=== PATIENT | female | born 1970 | race Caucasian/White ===

== ENCOUNTER 2018-03-22 18:42 | Emergency (ER) | payer MEDICAID, SELFPAY ==
[2018-03-22 18:44] VITALS: BP 125/90; PULSE 115; RESP 16; TEMP 37.1; BMI 28.0
[2018-03-22 18:59] VITALS: PULSE 105; RESP 20; O2SAT 96
--- NOTE | 2018-03-22 18:59 | CT_ITS ---
STUDY: CT BRAIN WITHOUT CONTRAST REASON FOR EXAM: Female, 48 years old. Facial droop and slurred speech, EtOH RADIATION DOSAGE (If Supplied By Facility): CTDIvol = ( 44.99 ) mGy, DLP = ( 782.05 ) mGycm TECHNIQUE: Transaxial CT imaging of the brain was performed without administration of intravenous contrast material. Individualized dose optimization techniques were used for this CT. COMPARISON: Prior study of 03/14/2015 FINDINGS: Normal soft tissue structures. Normal calvarium. Normal size ventricles and extra-axial spaces for the patient's age. Normal white matter tracts of the cerebral hemispheres. Normal basal ganglia and thalami. There is hypodensity of the central brainstem representing a new interval finding. Normal cerebellum. There is no intracranial hemorrhage. There is mucosal thickening of several ethmoid air cells anteriorly. CT/Brain/Head without Contrast IMPRESSION: There is hypodensity of the central brainstem representing a new interval finding from the previous studies. Findings raise the suspicion of infarct of indeterminate age or less likely neoplastic process. MRI is recommended for further evaluation of this finding at this time. There is no intracranial hemorrhage. Mild chronic ethmoid sinusitis. Electronically Signed: Del Cooper MD at 19:57 EDT , Service support ,
--- NOTE | 2018-03-22 18:59 | EKG12_ITS ---
Test Reason : WEAKNESS Blood Pressure : / mmHG Vent. Rate : 109 BPM Atrial Rate : 109 BPM P-R Int : 140 ms QRS Dur : 086 ms QT Int : 356 ms P-R-T Axes : 025 039 042 degrees QTc Int : 479 ms Sinus tachycardia Possible Left atrial enlargement Nonspecific ST abnormality Abnormal ECG Confirmed by ELISA PICKARD, BRAYAN ([id number]), editor city LAURO SWANSON ([id number]) on 03/26/2018 11:11:24 AM Referred By: BYRON Confirmed By:BRAYAN PÉREZ MD
[2018-03-22 19:11] LABS: Absolute Lymphocyte Count 3.38 X10^3/ul (0.83-4.51); Absolute Neutrophil Count 4.3 X10^3/uL (2.0-7.7); Basophil# 0.05 X10^3/uL; Basophil% 0.6 % (0-1); Eosinophil# 0.13 X10^3/uL; Eosinophils% 1.6 % (0-5); Hematocrit 38.1 % (37-47); Hemoglobin 12.7 g/dl (12.0-15.0); Lymphocyte # 3.38 X10^3/ul (4.0); Lymphocyte % 40.5 % (19-41); Mean Corp Hgb Conc 33.3 g/gl (32-36); Mean Corpuscular Volume 107.9 fL (81-99); Mean Platelet Vol. 8.7 fl (6.2-12.0); Monocyte# 0.45 X10^3/uL; Monocyte% 5.4 % (0-10); Neutrophil # 4.32 X10^3/uL (2.7-7.7); Neutrophil % 51.7 % (47-70); Platelet Count 218 K/mm3 (150-450); RBC Distribution Width CV 13.3 % (11.6-14.6); Red Blood Count 3.53 M/mm3 (4.2-5.4); White Blood Count 8.4 K/mm3 (4.4-11.0)
[2018-03-22 19:12] LABS: POSITIVE COUNT NO; POSITIVE DIFFERENTIAL NO; POSITIVE MORPHOLOGY NO
[2018-03-22 19:14] LABS: Partial Thromboplast Time 27.3 Seconds (24.1-36.2)
--- NOTE | 2018-03-22 19:20 | RAD_ITS ---
STUDY: X-RAY CHEST REASON FOR EXAM: Female, 48 years old. Facial droop, slurred speech. TECHNIQUE: AP chest. COMPARISON: None. FINDINGS: The lungs are clear and expanded. There is no demonstrated pleural abnormality. Normal size heart. Normal mediastinum and osmani. Normal visualized pulmonary arteries. Normal visualized aortic arch and descending thoracic aorta. Normal visualized thoracic spine. Normal visualized ribs, clavicles, and shoulders. There is no demonstrated abnormality of the visualized soft tissue structures of the upper abdomen. RAD/Chest 1 View IMPRESSION: Normal x-ray examination of the chest. Electronically Signed: Keyla Ferraro MD at 19:35 EDT Tel , Service support ,
[2018-03-22 19:23] LABS: Anion Gap 9 (5-15); BUN 9 mg/dL (7-18); BUN/Creat Ratio 12.2 RATIO (10-20); Calcium,Total 8.7 mg/dL (8.5-10.1); Chloride 102 mmol/L (98-107); Creatinine, Serum 0.74 mg/dL (0.55-1.02); EST Glomerular Filtration Rate 90 mL/min (>60); Est Glom Filt Rate - Afr Amer 108 mL/min (>60); Estimated Creatinine Clearance 81.16 ml/min; Glucose 149 mg/dL (74-106); Potassium 2.9 mmol/L (3.5-5.1); Sodium Level 138 mmol/L (136-145)
--- NOTE | 2018-03-22 19:23 | ED.RN ---
patient needed to go to CT scan. Patient stated I have to pee now it can wait. Patient refuses to hold bladder at this time. Patient assisted to the bathroom x2 assist.
[2018-03-22 20:32] VITALS: PULSE 101; PULSE 103; RESP 20
[2018-03-22 20:36] LABS: Bedside Glucose 155 mg/dL (70-110)
--- NOTE | 2018-03-22 20:45 | ED.RN ---
PT IS INTOXICATED, REPORTS DRINKING MULTIPLE DRINKS THIS EVENING. PT NOT COMPLIANT WITH ALLOWING MEDICAL EQUIP TO STAY ON AND MONITOR HER VITAL SIGNS.
[2018-03-22 22:06] VITALS: BP 119/82; PULSE 101; PULSE 97; RESP 18; RESP 20
--- NOTE | 2018-03-22 22:11 | ED.RN ---
PT HAS REMOVED BOTH OF HER IV'S AND REPORTS THAT SHE NO LONGER WANTS TO BE ADMITTED TO THE HOSPITAL. PT BREATH IS HEAVY WITH THE SCENT OF ALCOHOL. PT INFORMED THAT SHE IS NOT ABLE TO LEAVE AT THIS TIME BECAUSE SHE IS NOT SOBER. PT STATES I WANT TO TALK TO MY BOYFRIEND. DR CALZADA AWARE THAT PT NO LONGER WANTS TO STAY. PT IS UNSTEADY ON HER FEET AND WAS INSTRUCTED TO STAY IN BED FOR HER SAFETY AND TO CALL FOR HELP IF SHE NEEDS TO USE THE RESTROOM.
--- NOTE | 2018-03-22 23:32 | ED.RN ---
lab called with critical lab results wtoh level 355. Dr. Moore made aware. no new orders at this time
--- NOTE | 2018-03-22 23:53 | ED.VISSUMM ---
- ER Visit Summary Date of Service: 03/22/18 Chief Complaint: Possible stroke History of Present Illness: The patient is a 48 F who presents with a possible stroke that occurred today. Patient was at the [facility] and was drinking alcohol today. Friend states that the patient slumped over in her chair. Patient was having a hard time standing. EMS was called. Patient was slurring her speech on EMS arrival. Patient was having difficulty with speaking and with ambulation at that time. Upon arrival here, patient's speech was improving. Patient denies any headaches. Patient denies any nausea or vomiting. Patient denies any chest pain or shortness of breath. Physical Examination: Vital signs are stable except for mild tachycardia of 115. Patient is afebrile. Patient is in no acute distress. Cranial nerves II through XII are intact. Strength is 5/5 bilateral in the upper and lower extremities. There are no sensory deficits noted. Pupils are equal, round, and reactive to light bilaterally. Extraocular muscles are intact. There are no visual field deficits noted. Heart was regular and tachycardic. Lungs were clear and equal bilaterally. There is good respiratory effort noted. Abdomen was soft and nontender. The remaining physical exam is within normal limits. Test Results: EKG showed sinus tachycardia with a rate of 109. There are no acute ST or T wave changes. This was unchanged compared to previous EKG dated 03/14/2015. CBC was normal. Basic metabolic profile showed a mild hypokalemia of 2.9. Troponin was normal. CT scan of the brain was obtained. There is a hypodensity in the brainstem which is new compared to previous CT. Portable chest x-ray does not show any acute cardiopulmonary process. Emergency Department Course and Treatment: Patient was given aspirin here. Patient was given potassium for her hypokalemia. Patient was advised of her CT findings and admission to the hospital was recommended. Patient refused to stay here in the emergency department and wants to go home. Patient wants to follow-up with her primary care physician tomorrow. Since the patient was drinking alcohol earlier today, serum alcohol level was obtained. This was 355. This was drawn at 2230. Patient was advised that she will not be able to sign out AGAINST MEDICAL ADVICE until she is legally sober. She will have to stay here until 08 30 tomorrow morning when she will be legally sober and can sign out AGAINST MEDICAL ADVICE. Patient and friends understood and were agreeable with the plan. All questions were answered. Disposition: Discharged AGAINST MEDICAL ADVICE Impression: Brainstem stroke This note was generated with [employer] software. It may contain incorrect words, spelling, and punctuation that were not noted in review of the chart prior to signing <Patrick Moore - Last Filed: 03/22/18 23:53> - ER Visit Summary Date of Service: 03/23/18 Chief Complaint: [] History of Present Illness: The patient is a 48 F [] Physical Examination: [] Test Results: [] Emergency Department Course and Treatment: [] Treatment Plan: Patient was reevaluated by myself at 0835. At this point she is clinically sober. She is alert and oriented x3. She appears to have the capacity to make decisions for herself. I summarized her clinical course. I informed her that there was evidence of a possible brainstem infarct on her CAT scan. She understands that by leaving AGAINST MEDICAL ADVICE she possibly could have permanent disability or . She was also informed of other adverse outcomes. She understands that all of these are possible. She still wants to leave AGAINST MEDICAL ADVICE. She sees Adolfo Clancy as her primary care provider. She will call her primary care provider day for follow-up appointment. Disposition: [] Impression: [] This note was generated with [employer] software. It may contain incorrect words, spelling, and punctuation that were not noted in review of the chart prior to signing <Cedric Renee - Last Filed: 03/23/18 08:38> ED Disposition <Patrick Moore - Last Filed: 03/22/18 23:53> <Cedric Renee - Last Filed: 03/23/18 08:38> - Plan for ED Patient: Disposition: Against Medical Advice Chief Complaint: Neuro S/Sx Diagnosis: Brainstem stroke Referrals: Raad Clancy NP-C [Primary Care Provider] -
[2018-03-23 01:54] VITALS: RESP 16
[2018-03-23 03:43] VITALS: RESP 14
[2018-03-23 05:00] VITALS: RESP 16
[2018-03-23 06:33] VITALS: BP 115/71; PULSE 86; RESP 16; O2SAT 98
[2018-03-23] MEDS: Aspirin 325 MG Tablet PO (06:35)
--- NOTE | 2018-03-23 08:38 | ED.DEP ---
ED Disposition - Plan for ED Patient: Disposition: Against Medical Advice Chief Complaint: Neuro S/Sx Diagnosis: Brainstem stroke Instructions: ED Stroke Completed Referrals: Raad Clancy, ACCOUNT CLASSIFICATION CLERK-C [Primary Care Provider] -
== END 2018-03-23 08:56 | disposition left against medical advice (07) ==
PROVIDERS: Emergency Provider Emergency Medicine; Family Provider Nurse Practitioner Family; PCP Nurse Practitioner Family
DX: G46.3 Brain stem stroke syndrome (principal); R47.81 Slurred speech; E87.6 Hypokalemia
CPT/HCPCS: 70450; 71045; 80048; 80320; 82962; 84484; 85025; 85610; 85730; 93005; 99285; A4216; G0480

== ENCOUNTER 2019-02-10 14:34 | Emergency (ER) | payer MEDICAID, SELFPAY ==
[2019-02-10 14:35] VITALS: BP 102/76; PULSE 141; RESP 18; TEMP 37.1; O2SAT 98; BMI 26.0
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
[2019-02-10 15:16] LABS: Absolute Neutrophil Count 4.5 X10^3/uL (2.0-7.7); Basophil# 0.03 X10^3/uL; Basophil% 0.5 % (0-1); Eosinophil# 0.03 X10^3/uL; Eosinophils% 0.5 % (0-5); Hematocrit 33.8 % (37-47); Hemoglobin 11.4 g/dL (12.0-15.0); Lymphocyte % 16.6 % (19-41); Mean Corp Hgb Conc 33.7 g/dL (32-36); Mean Corpuscular Hgb 36.3 pg (27.0-32.0); Mean Corpuscular Volume 107.6 fL (81-99); Mean Platelet Vol. 10.6 fl (6.2-12.0); Monocyte# 0.38 X10^3/uL; Monocyte% 6.3 % (0-10); NRBC Flagged by Analyzer 0 % (0-5); Neutrophil # 4.53 X10^3/uL (2.7-7.7); Neutrophil % 75.4 % (47-70); Platelet Count 102 K/mm3 (150-450); RBC Distribution Width CV 14.6 % (11.6-14.6); RBC Distribution Width SD 56.3 fl (35.1-43.9); Red Blood Count 3.14 M/mm3 (4.2-5.4)
--- NOTE | 2019-02-10 15:25 | RAD_ITS ---
STUDY: X-RAY - RIGHT ANKLE REASON FOR EXAM: Female, 48 years old. Posttraumatic pain TECHNIQUE: 3 view(s) of the ankle. COMPARISON: None. FINDINGS: Normal visualized distal tibia and fibula. Normal medial and lateral malleoli. Normal tibiotalar articulation and ankle mortise. Normal visualized talus and calcaneus. The visualized subtalar, talonavicular, calcaneocuboid and tarsal articulations are normal. Soft tissue swelling overlying the lateral malleolus RAD/Ankle min 3 Views IMPRESSION: Lateral malleolus sprain. No evidence for acute fracture Electronically Signed: Sylvester Cho MD at 16:16 EDT , Service support ,
[2019-02-10] MEDS: 0.9% Normal Saline 1,000 ML 1000 ML IV (15:30)
[2019-02-10] MEDS: Diphth,Pertuss(Acell),Tet Vac 0.5 ML Vial IM (15:31)
[2019-02-10 15:34] VITALS: BP 112/77; PULSE 118; RESP 18; O2SAT 96
[2019-02-10 15:42] LABS: Anion Gap 16 (5-15); BUN 6 mg/dL (7-18); BUN/Creat Ratio 5.3 RATIO (10-20); Calcium,Total 7.7 mg/dL (8.5-10.1); Chloride 95 mmol/L (98-107); Creatinine, Serum 1.14 mg/dL (0.55-1.02); EST Glomerular Filtration Rate 54 mL/min (>60); Est Glom Filt Rate - Afr Amer 65 mL/min (>60); Estimated Creatinine Clearance 52.68 ml/min; Glucose 150 mg/dL (74-106); Potassium 2.6 mmol/L (3.5-5.1); Sodium Level 134 mmol/L (136-145)
--- NOTE | 2019-02-10 15:42 | ED.RN ---
PT K IS 2.6
[2019-02-10 16:16] VITALS: BP 126/93; PULSE 97; RESP 16; O2SAT 100
[2019-02-10] MEDS: Acetaminophen 500 MG Tablet 1000 MG PO (16:18)
[2019-02-10] MEDS: Potassium Chloride 10mEq/100mL 10 MEQ/100 ML IV.SOLN. 100 MEQ IV BOLUS (17:34)
[2019-02-10 17:48] VITALS: BP 122/82; PULSE 100; RESP 18; O2SAT 100
[2019-02-10 18:00] VITALS: BP 116/82; PULSE 105; RESP 20; O2SAT 100
[2019-02-10] MEDS: BACITRACIN 15 GM Tube 1 APPLIC TOPICAL (18:04)
[2019-02-10 18:34] VITALS: BP 120/77; PULSE 102; RESP 18; O2SAT 100
== END 2019-02-10 18:50 | disposition home or self-care (01) ==
PROVIDERS: Emergency Provider Emergency Medicine; Family Provider Nurse Practitioner Family; PCP Nurse Practitioner Family
DX: R56.9 Unspecified convulsions (principal); S93.401A Sprain of unspecified ligament of right ankle, initial encounter; I25.10 Atherosclerotic heart disease of native coronary artery without angina pectoris; Z72.0 Tobacco use; Z79.899 Other long term (current) drug therapy; V49.9XXA Car occupant (driver) (passenger) injured in unspecified traffic accident, initial encounter; Y93.I9 Activity, other involving external motion; Y92.410 Unspecified street and highway as the place of occurrence of the external cause; Y99.8 Other external cause status
CPT/HCPCS: 70450; 73610; 80048; 85025; 90715; 93005; 96360; 96361; 99285; J7030; A4216

== ENCOUNTER 2019-02-22 02:32 | Emergency (ER) | payer MEDICAID, SELFPAY ==
[2019-02-22 02:34] VITALS: BP 93/74; PULSE 122; RESP 18; TEMP 36.4; O2SAT 94; BMI 25.5
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
[2019-02-22] MEDS: Morphine 4 MG/ML Syringe IM (02:59)
[2019-02-22 03:47] VITALS: RESP 16
== END 2019-02-22 03:48 | disposition home or self-care (01) ==
PROVIDERS: Emergency Provider Emergency Medicine; Family Provider Nurse Practitioner Family; PCP Nurse Practitioner Family
DX: S93.601D Unspecified sprain of right foot, subsequent encounter (principal); V89.2XXD Person injured in unspecified motor-vehicle accident, traffic, subsequent encounter; F17.200 Nicotine dependence, unspecified, uncomplicated
CPT/HCPCS: 73630; 96372; 99282

== ENCOUNTER 2020-01-03 13:53 | Emergency (ER) | payer MEDICAID, SELFPAY ==
[2020-01-01 10:06] VITALS: BMI 25.5
[2020-01-03 14:00] VITALS: BP 104/62; PULSE 118; RESP 17; TEMP 37.1; O2SAT 98; BMI 24.4
[2020-01-03 14:11] VITALS: BP 104/62; PULSE 121; RESP 18; O2SAT 98
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
[2020-01-03] MEDS: 0.9% Normal Saline 1,000 ML 999 ML IV (14:49)
[2020-01-03] MEDS: Metoclopramide 10 MG/2 ML Vial IV (14:50)
[2020-01-03] MEDS: DiphenhydrAMINE 50 MG/ML Syringe 25 MG IV (14:52)
[2020-01-03 15:19] VITALS: BP 128/83; RESP 18; O2SAT 99
[2020-01-03 16:37] VITALS: BP 122/79; PULSE 106; RESP 18; O2SAT 99
== END 2020-01-03 17:06 | disposition home or self-care (01) ==
LOC: ED 15:50
PROVIDERS: Emergency Provider Student in an Organized Health Care Education/Training Program
DX: G40.909 Epilepsy, unspecified, not intractable, without status epilepticus (principal); S01.512A Laceration without foreign body of oral cavity, initial encounter; F17.200 Nicotine dependence, unspecified, uncomplicated; X58.XXXA Exposure to other specified factors, initial encounter; Y93.01 Activity, walking, marching and hiking; Y92.480 Sidewalk as the place of occurrence of the external cause; Y99.8 Other external cause status
CPT/HCPCS: 70450; 96361; 96374; 96375; 99285

== ENCOUNTER → 2020-02-15 | Outpatient (CLI) | payer MEDICAID, SELFPAY ==
[2020-02-15 09:41] VITALS: BMI 24.4
[2020-02-15 12:25] LABS: Absolute Lymphocyte Count 1.24 X10^3/uL (0.83-4.51); Absolute Neutrophil Count 2.6 X10^3/uL (2.0-7.7); Basophil# 0.03 X10^3/uL; Basophil% 0.7 % (0-1); Eosinophil# 0.08 X10^3/uL; Eosinophils% 1.9 % (0-5); Hematocrit 33.1 % (37-47); Hemoglobin 10.8 g/dL (12.0-15.0); Lymphocyte # 1.24 X10^3/ul (4.0); Lymphocyte % 29.2 % (19-41); Mean Corp Hgb Conc 32.6 g/dL (32-36); Mean Corpuscular Hgb 35.6 pg (27.0-32.0); Mean Corpuscular Volume 109.2 fL (81-99); Mean Platelet Vol. 10.1 fl (6.2-12.0); Monocyte# 0.32 X10^3/uL; Monocyte% 7.5 % (0-10); NRBC Flagged by Analyzer 0 % (0-5); Neutrophil # 2.56 X10^3/uL (2.7-7.7); Neutrophil % 60.5 % (47-70); Platelet Count 117 K/mm3 (150-450); RBC Distribution Width CV 14.3 % (11.6-14.6); RBC Distribution Width SD 57.8 fl (35.1-43.9); Red Blood Count 3.03 M/mm3 (4.2-5.4); White Blood Count 4.2 K/mm3 (4.4-11.0)
[2020-02-15 12:41] LABS: ALB/GLOB Ratio 0.7 RATIO (0.9-2.4); AST(SGOT) 46 U/L (15-37); Alanine Aminotransfer ALT/SGPT 27 U/L (13-56); Albumin, Serum 2.9 g/dL (3.2-5.0); Alkaline Phosphatase 116 U/L (45-117); Anion Gap 5 (5-15); BUN 7 mg/dL (7-18); BUN/Creat Ratio 9.2 RATIO (10-20); Calcium,Total 8.4 mg/dL (8.5-10.1); Chloride 104 mmol/L (98-107); Cholesterol 247 mg/dL (200); Creatinine, Serum 0.76 mg/dL (0.55-1.02); EST Glomerular Filtration Rate 86 mL/min (>60); Est Glom Filt Rate - Afr Amer 104 mL/min (>60); Globulin 4.3 g/dL (2.2-4.2); Glucose 181 mg/dL (74-106); High Density Lipoprotein 52 mg/dL; Potassium 3.5 mmol/L (3.5-5.1); Protein, Total 7.2 g/dL (6.4-8.2); Sodium Level 137 mmol/L (136-145); Triglycerides 99 mg/dL; Very Low Density Lipoprotein 20 mg/dL (5-40)
[2020-02-15 17:57] LABS: Xtra Tube EP Lab EXTRA TUBE
[2020-02-16 09:42] LABS: Vitamin B12 894 pg/mL (211-911)
[2020-02-16 09:53] LABS: GGTP 41 U/L (5-55)
[2020-02-16 10:19] LABS: Hemoglobin A1c 4.5 % (3.8-5.6)
== END | disposition home or self-care (01) ==
LOC: BIMLAB 09:57
PROVIDERS: PCP Internal Medicine; Referring Provider Internal Medicine; Visit Provider Internal Medicine
DX: I10 Essential (primary) hypertension (principal); R73.9 Hyperglycemia, unspecified; D53.9 Nutritional anemia, unspecified; K70.9 Alcoholic liver disease, unspecified
CPT/HCPCS: 36415; 80053; 80061; 82607; 82746; 82977; 83036; 85025

== ENCOUNTER → 2020-03-03 | Outpatient (CLI) | payer MEDICAID, SELFPAY ==
[2020-02-15 09:41] VITALS: BMI 24.4
--- NOTE | 2020-03-03 11:40 | BI_ITS ---
MAMMOGRAPHY - BILATERAL SCREENING REASON FOR EXAM: Female, 49 years old. Routine annual screening examination. PERTINENT HISTORY: Aunt with breast cancer. TECHNIQUE: Digital bilateral breast reggie (3D mammographic acquisition) in the CC and MLO projections. 2-D mediolateral oblique (MLO) and craniocaudad (CC) views of both breasts were obtained. CAD: Full Field Digital Mammography with Computer Added Detection was performed. COMPARISON: Comparison is made with prior outside examination dated 05/07/2016. FINDINGS: Breast Composition: There are scattered areas of fibroglandular density. There are no dominant masses or suspicious calcifications. Stable small benign appearing bilateral axillary lymph nodes. No other significant abnormalities are identified. There has been no significant change since the prior study. BI/SCREEN MAMM (CAD) W/REGGIE BILAT IMPRESSION: Stable bilateral screening mammogram. Yearly follow-up mammogram recommended. (A) ASSESSMENT CATEGORY: BIRADS Category 2: Benign. A letter regarding these results will be sent to the patient by the facility within 30 days. Approximately 10% of breast cancers are not detected by mammography. A normal mammogram should not delay biopsy of a clinically suspicious abnormality. [id number] Electronically Signed: José Monreal, at 13:58 EDT , Service support ,
== END | disposition home or self-care (01) ==
LOC: OPBI 11:40
PROVIDERS: PCP Internal Medicine; Referring Provider Internal Medicine; Visit Provider Internal Medicine
DX: Z12.31 Encounter for screening mammogram for malignant neoplasm of breast (principal)
CPT/HCPCS: 77063; 77067

== ENCOUNTER → 2020-04-07 11:19 | Outpatient (CLI) | payer MEDICAID, SELFPAY ==
[2020-02-15 09:41] VITALS: BMI 24.4
[2020-04-07 14:04] LABS: BUN 6 mg/dL (7-18); Creatinine, Serum 0.59 mg/dL (0.55-1.02); EST Glomerular Filtration Rate 114 mL/min (>60); Est Glom Filt Rate - Afr Amer 138 mL/min (>60)
[2020-04-10 17:42] LABS: Trileptal-Oxcarbazepine 12 ug/mL (10-35)
== END ==
PROVIDERS: PCP Internal Medicine; Referring Provider Psychiatry & Neurology Neurology; Visit Provider Psychiatry & Neurology Neurology
DX: G40.909 Epilepsy, unspecified, not intractable, without status epilepticus (principal)
CPT/HCPCS: 36415; 82542; 82565; 84520

== ENCOUNTER → 2020-04-24 07:02 | Outpatient (CLI) | payer MEDICAID, SELFPAY ==
[2020-02-15 09:41] VITALS: BMI 24.4
--- NOTE | 2020-04-24 08:19 | TELEMED_ITS ---
[facility] has confirmed receipt of a request for visit. This document confirms receipt of the order initiating the consult. To find the results of the consultation, please view the patient's reports for the scanned Telemed Consult.
== END ==
PROVIDERS: PCP Internal Medicine; Referring Provider Psychiatry & Neurology Neurology; Visit Provider Psychiatry & Neurology Neurology
DX: G40.909 Epilepsy, unspecified, not intractable, without status epilepticus (principal)
CPT/HCPCS: 95819

== ENCOUNTER → 2020-05-15 11:15 | Outpatient (CLI) | payer MEDICAID, SELFPAY ==
[2020-05-15 10:53] VITALS: BMI 28.8
[2020-05-15 12:54] LABS: Anion Gap 7 (5-15); BUN 8 mg/dL (7-18); BUN/Creat Ratio 11.9 RATIO (10-20); Calcium,Total 8.8 mg/dL (8.5-10.1); Chloride 106 mmol/L (98-107); Creatinine, Serum 0.67 mg/dL (0.55-1.02); EST Glomerular Filtration Rate 99 mL/min (>60); Est Glom Filt Rate - Afr Amer 120 mL/min (>60); Glucose 103 mg/dL (74-106); Potassium 3.9 mmol/L (3.5-5.1); Sodium Level 138 mmol/L (136-145)
== END ==
PROVIDERS: PCP Internal Medicine; Visit Provider Internal Medicine
DX: I10 Essential (primary) hypertension (principal)
CPT/HCPCS: 36415; 80048

== ENCOUNTER → 2020-06-20 07:19 | Outpatient (CLI) | payer MEDICAID, SELFPAY ==
[2020-02-15 09:41] VITALS: BMI 24.4
[2020-05-15 10:53] VITALS: BMI 28.8
--- NOTE | 2020-06-20 07:28 | MRI_ITS ---
STUDY: MRI BRAIN WITH AND WITHOUT CONTRAST REASON FOR EXAM: Female, 50 years old. epilepsy TECHNIQUE: Standardized multiplanar fat and water weighted pulse sequences were obtained. IV Dotarem 14ml was administered for the contrast portion of the examination. COMPARISON: 10/17/2014 FINDINGS: Normal size of the ventricles and extra-axial spaces for the patient''s age. Normal white matter tracts of the supratentorial brain. There is no evidence for recent intracranial ischemia or other cause of cytotoxic edema on diffusion weighted imaging (DWI). Normal T2* images of the brain without demonstrated susceptibility artifact. There is no demonstrated hemosiderin stain. Thin section coronal images through the temporal lobes demonstrate no evidence of hippocampal atrophy or hyperintensity to suggest mesial temporal sclerosis. Normal bilateral basal ganglia. Normal thalami. There is no extra-axial fluid accumulation. Normal flow voids within the major intracranial circulation suggesting patency by spin echo criteria. Normal venous enhancement. There is no enhancing intra-axial or extra-axial abnormality. Normal sella turcica, pituitary gland, infundibular stalk, optic chiasm and hypothalamus. Normal tectal plate and pineal gland. Normal midbrain, danni and medulla. Normal cerebellum. Normal basal cisterns. Normal bilateral temporal bones. Normal bilateral internal auditory canals. No demonstrated orbital abnormality, within the constraints of a routine brain study. Normal visualized paranasal sinuses. Normal calvarium and skull base. Normal visualized soft tissue structures. Normal visualized upper cervical spine. MRI/Brain W/WO Contrast IMPRESSION: Normal unenhanced and enhanced MRI of the brain. Electronically Signed: Raad Webb MD at 10:05 EST Tel , Service support ,
[2020-06-20 07:36] LABS: Hematocrit 38.1 % (37-47); Hemoglobin 12.7 g/dL (12.0-15.0); Mean Corp Hgb Conc 33.3 g/dL (32-36); Mean Corpuscular Hgb 33.6 pg (27.0-32.0); Mean Corpuscular Volume 100.8 fL (81-99); Mean Platelet Vol. 9.5 fl (6.2-12.0); Platelet Count 144 K/mm3 (150-450); RBC Distribution Width CV 14.2 % (11.6-14.6); RBC Distribution Width SD 53.3 fl (35.1-43.9); Red Blood Count 3.78 M/mm3 (4.2-5.4); White Blood Count 6.3 K/mm3 (4.4-11.0)
[2020-06-20 07:48] LABS: AST(SGOT) 31 U/L (15-37); Alanine Aminotransfer ALT/SGPT 27 U/L (13-56); Albumin, Serum 3.5 g/dL (3.2-5.0); Alkaline Phosphatase 130 U/L (45-117); BUN 7 mg/dL (7-18); Bilirubin, Direct 0.41 mg/dL (0.00-0.30); Creatinine, Serum 0.71 mg/dL (0.55-1.02); EST Glomerular Filtration Rate 93 mL/min (>60); Est Glom Filt Rate - Afr Amer 112 mL/min (>60); Ferritin 20 ng/mL (8-252); Globulin 4.5 g/dL (2.2-4.2); Iron 86 ug/dL (50-170)
== END ==
PROVIDERS: PCP Internal Medicine; Referring Provider Psychiatry & Neurology Neurology; Visit Provider Psychiatry & Neurology Neurology
DX: G40.909 Epilepsy, unspecified, not intractable, without status epilepticus (principal); Z86.2 Personal history of diseases of the blood and blood-forming organs and certain disorders involving the immune mechanism
CPT/HCPCS: 36415; 70553; 80076; 82565; 82728; 83540; 84520; 85027; A9575

== ENCOUNTER → 2020-07-21 | Outpatient (CLI) | payer MEDICAID, SELFPAY ==
--- NOTE | 2020-07-20 | LES_PTH ---
PATIENT: FELTON ARMENTA LOC: [facility] U#:[id number] AGE/SX: 50/F ROOM: RE07/21/[address]: Dr. Rosendo Vernon MD : 1970 BED: DIS: 07/21/2020 SPEC #: [id number] RECD: 07/21/20 11:44 STATUS: TONEY RELeah #: [id number] EDIE: 07/20/20 00:[address]: Rosendo Vernon DEPT: SURGICAL PATHOLOGY RECD BY: Adal Ruelas ENTERED: 07/21/20 11:45 SP TYPE: Lesion OTHR DR: Dr. Edis Nichols MD Tissues: Skin of eyelid, NOS Procedures: Surgery Specimen Level IV HEADER OPERATION: Excisional biopsy right lower eyelid PRE-OP DIAGNOSIS: Suspicious for basal cell TISSUE SUBMITTED: Right lower eyelid lesion MICROSCOPIC DIAGNOSIS Right lower eyelid lesion, biopsy: Basal cell carcinoma, superficial nodular and focally cystic. See comment. AM:trixie 07/24/2020 COMMENT The lesion appears to have been completely excised from the planes examined. Clinical correlation is suggested. MICROSCOPIC DESCRIPTION Slides are reviewed. GROSS DESCRIPTION Received in fixative is one container labeled with the patient's name and designated right lower lid/cheek area. The specimen consists of a osman-white skin ellipse measuring 0.7 x 0.3 x 0.2 cm. The specimen is inked and submitted entirely in one cassette. It will be sectioned at the time of embedding. / SJ:trixie 07/21/20 TC:0 CPT: 41377
[2020-07-21 10:26] VITALS: BMI 24.4
== END | disposition home or self-care (01) ==
LOC: LABSPEC 10:27
PROVIDERS: PCP Internal Medicine; Referring Provider Ophthalmology; Visit Provider Ophthalmology
DX: C44.1122 Basal cell carcinoma of skin of right lower eyelid, including canthus (principal)
CPT/HCPCS: 88305

== ENCOUNTER → 2020-08-15 11:36 | Outpatient (CLI) | payer MEDICAID, SELFPAY ==
[2020-08-15 10:45] VITALS: BMI 31.0
[2020-08-15 15:49] LABS: Erythrocyte Sedimentation Rate 7 mm/hr (0-30)
[2020-08-15 15:54] LABS: Anion Gap 5 (5-15); BUN 9 mg/dL (7-18); BUN/Creat Ratio 12.3 RATIO (10-20); CRP < 2.90 mg/L (0.0-3.0); Calcium,Total 8.7 mg/dL (8.5-10.1); Chloride 104 mmol/L (98-107); Creatinine, Serum 0.73 mg/dL (0.55-1.02); EST Glomerular Filtration Rate 90 mL/min (>60); Est Glom Filt Rate - Afr Amer 109 mL/min (>60); Glucose 99 mg/dL (74-106); Potassium 4.2 mmol/L (3.5-5.1); Rheumatoid Factor < 10.0 IU/mL (<15); Sodium Level 136 mmol/L (136-145)
[2020-08-17 14:44] LABS: ANTINUCLEAR ANTIBODIES DIRECT Negative (Negative)
== END ==
PROVIDERS: PCP Internal Medicine; Referring Provider Nurse Practitioner Family; Visit Provider Nurse Practitioner Family
DX: E87.6 Hypokalemia (principal); M25.50 Pain in unspecified joint; R63.5 Abnormal weight gain
CPT/HCPCS: 36415; 80048; 84439; 84443; 85652; 86038; 86140; 86225; 86235; 86431

== ENCOUNTER → 2020-09-15 14:53 | Outpatient (CLI) | payer MEDICAID, SELFPAY ==
[2020-09-05 15:33] VITALS: BMI 28.8
[2020-09-22 12:27] LABS: Trileptal-Oxcarbazepine 9 ug/mL (10-35)
== END ==
PROVIDERS: PCP Internal Medicine; Referring Provider Nurse Practitioner Family; Visit Provider Nurse Practitioner Family
DX: G40.909 Epilepsy, unspecified, not intractable, without status epilepticus (principal)
CPT/HCPCS: 36415; 82542

== ENCOUNTER → 2021-03-09 15:19 | Outpatient (CLI) | payer MEDICARE, SELFPAY ==
--- NOTE | 2021-03-09 15:20 | BI_ITS ---
MAMMOGRAPHY - BILATERAL SCREENING 3-D TOMOSYNTHESIS REASON FOR EXAM: Female, 50 years old. screening PERTINENT HISTORY: No significant family history. TECHNIQUE: 2-D mammograms and 3-D Tomosynthesis of the breast (s) were performed. CAD was performed. COMPARISON: 03/03/2020 FINDINGS: The breast composition is composed of scattered fibroglandular density. Scattered benign calcifications are seen. No dense spiculated masses or suspicious microcalcifications are identified. No architectural distortion is identified. There is no skin thickening or retraction. There has been no significant change since the prior study. BI/SCRN MAMM (CAD)W/REGGIE BILAT IMPRESSION: No mammographic signs of malignancy. Routine yearly mammograms recommended. ASSESSMENT CATEGORY: BIRADS Category 1: Negative. A letter regarding these results will be sent to the patient by the facility within 30 days. FOLLOW UP RECOMMENDATION: Yearly follow up mammogram recommended. (A) Approximately 10% of breast cancers are not detected by mammography. A normal mammogram should not delay biopsy of a clinically suspicious abnormality. Electronically Signed: Raad Webb MD at 10:51 EDT Tel , Service support ,
== END ==
PROVIDERS: PCP Internal Medicine; Referring Provider Nurse Practitioner Family; Visit Provider Nurse Practitioner Family
DX: Z12.31 Encounter for screening mammogram for malignant neoplasm of breast (principal)
CPT/HCPCS: 77063; 77067

== ENCOUNTER → 2021-03-13 11:47 | Outpatient (CLI) | payer MEDICARE, SELFPAY | PROVIDERS: PCP Internal Medicine; Referring Provider Psychiatry & Neurology Neurology; Visit Provider Psychiatry & Neurology Neurology | DX: G40.909 Epilepsy, unspecified, not intractable, without status epilepticus (principal) | CPT/HCPCS: 36415; 82140 ==

== ENCOUNTER → 2021-03-23 09:06 | Outpatient (CLI) | payer MEDICARE, MEDICAID, SELFPAY | PROVIDERS: PCP Internal Medicine; Referring Provider Internal Medicine; Visit Provider Surgery | DX: U07.1 COVID-19 (principal) | CPT/HCPCS: 87426; 87635; C9803; U0005; U0003 ==

== ENCOUNTER → 2021-11-08 | Outpatient (CLI) | payer MEDICARE, SELFPAY ==
[2021-11-08 15:51] LABS: Absolute Lymphocyte Count 1.57 X10^3/uL (0.83-4.51); Absolute Neutrophil Count 4.9 X10^3/uL (2.0-7.7); Basophil# 0.03 X10^3/uL; Basophil% 0.4 % (0-1); Eosinophil# 0.08 X10^3/uL; Eosinophils% 1.1 % (0-5); Hematocrit 42.8 % (37-47); Hemoglobin 14.1 g/dL (12.0-15.0); Lymphocyte # 1.57 X10^3/ul (0.83-4.51); Lymphocyte % 21.7 % (19-41); Mean Corp Hgb Conc 32.9 g/dL (32-36); Mean Corpuscular Hgb 36.6 pg (27.0-32.0); Mean Corpuscular Volume 111.2 fL (81-99); Mean Platelet Vol. 10.3 fl (6.2-12.0); Monocyte# 0.61 X10^3/uL; Monocyte% 8.4 % (0-10); NRBC Flagged by Analyzer 0 % (0-5); Neutrophil # 4.92 X10^3/uL (2.7-7.7); Neutrophil % 68.1 % (47-70); Platelet Count 134 K/mm3 (150-450); RBC Distribution Width CV 13.2 % (11.6-14.6); RBC Distribution Width SD 54.1 fl (35.1-43.9); Red Blood Count 3.85 M/mm3 (4.2-5.4); White Blood Count 7.2 K/mm3 (4.4-11.0)
[2021-11-08 16:17] LABS: ALB/GLOB Ratio 0.9 RATIO (0.9-2.4); AST(SGOT) 35 U/L (15-37); Alanine Aminotransfer ALT/SGPT 35 U/L (13-56); Albumin, Serum 3.9 g/dL (3.2-5.0); Alkaline Phosphatase 101 U/L (45-117); Anion Gap 7 (5-15); BUN 13 mg/dL (7-18); BUN/Creat Ratio 15.9 RATIO (10-20); Calcium,Total 9.1 mg/dL (8.5-10.1); Chloride 104 mmol/L (98-107); Cholesterol 179 mg/dL (200); Creatinine, Serum 0.82 mg/dL (0.55-1.02); EST Glomerular Filtration Rate 78 mL/min (>60); Est Glom Filt Rate - Afr Amer 95 mL/min (>60); Globulin 4.4 g/dL (2.2-4.2); Glucose 95 mg/dL (74-106); High Density Lipoprotein 63 mg/dL; Potassium 3.8 mmol/L (3.5-5.1); Protein, Total 8.3 g/dL (6.4-8.2); Sodium Level 136 mmol/L (136-145); Thyroid Stim Hormone (TSH) 1.32 uIU/mL (0.358-3.74); Triglycerides 59 mg/dL; Very Low Density Lipoprotein 12 mg/dL (5-40)
== END | disposition home or self-care (01) ==
LOC: MTLAB 13:47
PROVIDERS: PCP Internal Medicine; Referring Provider Nurse Practitioner Family; Visit Provider Nurse Practitioner Family
DX: K64.9 Unspecified hemorrhoids (principal); G40.909 Epilepsy, unspecified, not intractable, without status epilepticus; I10 Essential (primary) hypertension; F41.9 Anxiety disorder, unspecified; F32.9 Major depressive disorder, single episode, unspecified
CPT/HCPCS: 36415; 80053; 80061; 84443; 85025

== ENCOUNTER → 2022-03-18 | Outpatient (CLI) | payer MEDICARE, MEDICAID, SELFPAY ==
--- NOTE | 2022-03-18 13:07 | RAD_ITS ---
EXAM: XR RIGHT HIP WITH PELVIS WHEN PERFORMED, 2 OR 3 VIEWS CLINICAL INDICATION: Right Hip Pain TECHNIQUE: Two or three views of the right hip with pelvis when performed. This report was created using [employer] report generation technology. COMPARISON: Pelvic radiograph of 08/09/2013. FINDINGS: BONES/JOINTS: Lower lumbar facet arthritis is present, and has progressed since the prior study. Mild degenerative spurring noted about the L3/4 disc space. No displaced fracture. No destructive or sclerotic lesions. Note that overlapping bowel shadows may however obscure fine detail. Sacroiliac joints are unremarkable. No widening of the pubic symphysis. SOFT TISSUES: No soft tissue swelling or gas. VASCULATURE: Calcified phleboliths are noted within the pelvis. TUBES, LINES AND DEVICES: Fallopian tube occlusive devices remain in place. RAD/HIP, UNI W/ Pelvis 2-3 Views IMPRESSION: Lower lumbar degenerative changes including facet arthritis. No acute findings in the pelvis or right hip. Electronically Signed: Arsalan Downey MD at 7:42 EDT ,
== END | disposition home or self-care (01) ==
PROVIDERS: PCP Internal Medicine; Referring Provider Psychiatry & Neurology Neurology; Visit Provider Psychiatry & Neurology Neurology
DX: M25.551 Pain in right hip (principal); G40.909 Epilepsy, unspecified, not intractable, without status epilepticus
CPT/HCPCS: 36415; 73502; 82140

== ENCOUNTER → 2022-05-16 | Outpatient (CLI) | payer MEDICARE, MEDICAID, SELFPAY | END | disposition home or self-care (01) | PROVIDERS: PCP Internal Medicine; Referring Provider Psychiatry & Neurology Neurology; Visit Provider Psychiatry & Neurology Neurology | DX: G40.909 Epilepsy, unspecified, not intractable, without status epilepticus (principal) | CPT/HCPCS: 36415; 82140 ==

== ENCOUNTER → 2022-10-07 | Outpatient (CLI) | payer MEDICARE, SELFPAY ==
--- NOTE | 2022-10-07 08:23 | BI_ITS ---
MAMMOGRAPHY - BILATERAL SCREENING REASON FOR EXAM: Female, 52 years old. Routine annual screening examination. PERTINENT HISTORY: Aunt with breast cancer. TECHNIQUE: Digital bilateral breast reggie (3D mammographic acquisition) in the CC and MLO projections. 2-D mediolateral oblique (MLO) and craniocaudad (CC) views of both breasts were obtained. CAD: Full Field Digital Mammography with Computer Added Detection was performed. COMPARISON: Comparison is made with prior study March 09, 2021 and March 03, 2020. FINDINGS: Breast Composition: The breasts are almost entirely fatty. There are no dominant masses or suspicious calcifications. Stable small benign-appearing bilateral axillary lymph nodes. No other significant abnormalities are identified. There has been no significant change since the prior study. BI/SCRN MAMM (CAD)W/REGGIE BILAT IMPRESSION: Stable bilateral screening mammogram. Yearly follow-up mammogram recommended. (A) ASSESSMENT CATEGORY: BIRADS Category 2: Benign. A letter regarding these results will be sent to the patient by the facility within 30 days. Approximately 10% of breast cancers are not detected by mammography. A normal mammogram should not delay biopsy of a clinically suspicious abnormality. [id number] Electronically Signed: José Monreal MD at 9:21 EDT ,
== END | disposition home or self-care (01) ==
PROVIDERS: PCP Internal Medicine; Referring Provider Internal Medicine; Visit Provider Internal Medicine
DX: Z12.31 Encounter for screening mammogram for malignant neoplasm of breast (principal)
CPT/HCPCS: 77063; 77067

== ENCOUNTER → 2023-04-09 | Outpatient (CLI) | payer MEDICARE, SELFPAY ==
[2023-04-09 15:26] LABS: Absolute Lymphocyte Count 1.67 X10^3/uL (0.83-4.51); Absolute Neutrophil Count 2.3 X10^3/uL (2.0-7.7); Basophil# 0.03 X10^3/uL; Basophil% 0.7 % (0-1); Eosinophil# 0.06 X10^3/uL; Eosinophils% 1.3 % (0-5); Hematocrit 38.6 % (37-47); Hemoglobin 12.3 g/dL (12.0-15.0); Lymphocyte # 1.67 X10^3/ul (0.83-4.51); Lymphocyte % 37.4 % (19-41); Mean Corp Hgb Conc 31.9 g/dL (32-36); Mean Corpuscular Hgb 35.4 pg (27.0-32.0); Mean Corpuscular Volume 111.2 fL (81-99); Mean Platelet Vol. 9.7 fl (6.2-12.0); Monocyte# 0.42 X10^3/uL; Monocyte% 9.4 % (0-10); NRBC Flagged by Analyzer 0 % (0-5); Neutrophil # 2.28 X10^3/uL (2.7-7.7); Platelet Count 160 K/mm3 (150-450); RBC Distribution Width SD 61.4 fl (35.1-43.9); Red Blood Count 3.47 M/mm3 (4.2-5.4); White Blood Count 4.5 K/mm3 (4.4-11.0)
[2023-04-09 15:53] LABS: ALB/GLOB Ratio 0.9 RATIO (0.9-2.4); AST(SGOT) 56 U/L (15-37); Alanine Aminotransfer ALT/SGPT 35 U/L (13-56); Albumin, Serum 3.5 g/dL (3.2-5.0); Alkaline Phosphatase 97 U/L (45-117); Anion Gap 6 (5-15); BUN 7 mg/dL (7-18); Chloride 107 mmol/L (98-107); Cholesterol 171 mg/dL (200); Creatinine, Serum 0.88 mg/dL (0.55-1.02); EST Glomerular Filtration Rate 72 mL/min (>60); Est Glom Filt Rate - Afr Amer 87 mL/min (>60); Globulin 3.8 g/dL (2.2-4.2); Glucose 101 mg/dL (74-106); High Density Lipoprotein 46 mg/dL; Potassium 3.7 mmol/L (3.5-5.1); Protein, Total 7.3 g/dL (6.4-8.2); Sodium Level 140 mmol/L (136-145); Triglycerides 111 mg/dL; Very Low Density Lipoprotein 22 mg/dL (5-40)
== END | disposition home or self-care (01) ==
LOC: BIMLAB 14:06
PROVIDERS: PCP Internal Medicine; Visit Provider Internal Medicine
DX: I10 Essential (primary) hypertension (principal); K76.0 Fatty (change of) liver, not elsewhere classified
CPT/HCPCS: 36415; 80053; 80061; 85025

== ENCOUNTER → 2024-03-03 | Outpatient (CLI) | payer MEDICARE, SELFPAY | END | disposition home or self-care (01) | PROVIDERS: PCP Internal Medicine; Referring Provider Psychiatry & Neurology Neurology; Visit Provider Psychiatry & Neurology Neurology | DX: G40.909 Epilepsy, unspecified, not intractable, without status epilepticus (principal) | CPT/HCPCS: 36415; 82140 ==

== ENCOUNTER 2024-03-10 21:25 | Inpatient (IN) | payer MEDICARE, SELFPAY ==
[2024-03-10] VITALS (9 sets, daily range): BP systolic 152–164; BP diastolic 81–90; PULSE 102–140; RESP 19–31; TEMP 36.6; O2SAT 94–98; BMI 27.5
--- OUTSIDE RECORDS SUMMARY | 2024-03-10 22:00 | XMS RPT_ITS | CCD ---
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 ([place]) Comment on above: Performed By: #### SERA CLINTON, ANEU #### [place] [address] #### LIP, CMP, GFR #### [address] [address] Eosinophils/100 WBC (Bld) 0.0 % Normal 0.0-7.0 [facility] ([place]) Comment on above: Performed By: #### C BC, ADIFF, ANEU #### [address] [address] #### LIP, CMP, GFR #### [address] [address] Lymphocytes (Bld) [#/Vol] 0.40 10 3/mcL Low 0.77-3.85 [facility] ([place]) Comment on above: Performed By: #### C BC, ADIFF, ANEU #### [place] [address] #### LIP, CMP, GFR #### [address] [address] Lymphocytes/100 WBC (Bld) 7.5 % Low 10.0-50.0 [facility] ([place]) Comment on above: Performed By: #### C BC, ADIFF, ANEU #### [place] [address] #### LIP, CMP, GFR #### [address] [address] Monocytes/100 WBC (Bld) 4.5 % Normal 1.7-13.0 [facility] ([place]) Comment on above: Performed By: #### C BC, ADIFF, ANEU #### [place] [address] #### LIP, CMP, GFR #### [address] [address] Neutrophils/100 WBC (Bld) 87.0 % High 37.0-80.0 [facility] ([place]) Comment on above: Performed By: #### C BC, ADIFF, ANEU #### [place] [address] #### LIP, CMP, GFR #### [address] [address] .GFRon 08-11-2018 GFR Non- 90 ml/min/1.73sqm Normal [facility] ([place]) Comment on above: Result Comment: GFR Population mean for , Non- Americans Ages 20-29 = 116 mL/min/1.73 sq.m. Ages 30-39 = 107 mL/min/1.73 sq.m. Ages 40-49 = 99 mL/min/1.73 sq.m. Ages 50-59 = 93 mL/min/1.73 sq.m. Ages 60-69 = 85 mL/min/1.73 sq.m. Ages 70+ = 75 mL/min/1.73 sq.m. Chronic Kidney Disease: Less than 60 mL/min/1.73 square meters End Stage Renal Disease: Less than 15 mL/min/1.73 square meters Performed By: #### C BC, ADIFF, ANEU #### [address] [address] #### LIP, CMP, GFR #### [place] [id number] GFR 109 ml/min/1.73sqm Normal [facility] ([place]) Comment on above: Result Comment: GFR Population mean for , Non- Americans Ages 20-29 = 116 mL/min/1.73 sq.m. Ages 30-39 = 107 mL/min/1.73 sq.m. Ages 40-49 = 99 mL/min/1.73 sq.m. Ages 50-59 = 93 mL/min/1.73 sq.m. Ages 60-69 = 85 mL/min/1.73 sq.m. Ages 70+ = 75 mL/min/1.73 sq.m. Chronic Kidney Disease: Less than 60 mL/min/1.73 square meters End Stage Renal Disease: Less than 15 mL/min/1.73 square meters Performed By: #### C BC, ADIFF, ANEU #### [address] [address] #### LIP, CMP, GFR #### [address] [address] .NEUABSon 08-11-2018 Neutrophils (Bld) [#/Vol] 4.20 10 3/mcL Normal 2.85-6.16 [facility] ([place]) Comment on above: Performed By: #### C SERA DAVIS, ANEU #### [place] [address] #### LIP, CMP, GFR #### [place] [address] .Urinalysis Microscopic (AO) on 08-11-2018 RBC (U) [#/Vol] None Seen Normal None Seen [facility] ([place] Comment on above: Performed By: #### U A, UAMICAO #### [place] [address] UA Bacteria 4+ /hpf [facility] ([place] Comment on above: Performed By: #### U A, UAMICAO #### [place] [address] UA Squam Epithelial 5-10 None Seen [facility] ([place]) Comment on above: Performed By: #### U A, UAMICAO #### [place] [address] UA WBC 0-5 None Seen [facility] ([place] Comment on above: Performed By: #### U A, UAMICAO #### [place] [address] CBCon 08-11-2018 Erythrocyte distribution width (RBC) [Ratio] 15.4 % High 11.5-14.5 [facility] ([place]) Comment on above: Performed By: #### C SERA DAVIS, ANEU #### [place] [address] #### LIP, CMP, GFR #### [place] [address] Hematocrit (Bld) [Volume fraction] 39.9 % Normal 37.0-47.0 [facility] ([place] Comment on above: Performed By: #### C SERA DAVIS ANEU #### [place] [address] #### LIP, CMP, GFR #### [address] [address] Hemoglobin (Bld) [Mass/Vol] 13.7 G/dL Normal 12.0-16.0 [facility] ([place] Comment on above: Performed By: #### C BC, ADIFF, ANEU #### [place] [address] #### LIP, CMP, GFR #### [place] [address] MCH (RBC) [Entitic mass] 37.5 pg High 27.0-31.2 [facility] ([place]) Comment on above: Performed By: #### C SUSAN, ADIFF, ANEU #### [place] [address] #### LIP, CMP, GFR #### [place] [address] MCHC (RBC) [Mass/Vol] 34.3 G/dL Normal 33.0-37.0 [facility] ([place]) Comment on above: Performed By: #### C SUSAN, ADIFF, ANEU #### [place] [address] #### LIP, CMP, GFR #### [place] [address] MCV (RBC) [Entitic vol] 109.5 fL High 80.0-94.0 [facility] ([place] Comment on above: Performed By: #### C BC, ADIFF, ANEU #### [place] [address] #### LIP, CMP, GFR #### [place] [address] Platelet mean volume (Bld) [Entitic vol] 7.2 fL Low 7.4-10.4 [facility] ([place] Comment on above: Performed By: #### C BC, ADIFF, ANEU #### [place] [address] #### LIP, CMP, GFR #### [address] [address] Platelets (Bld) [#/Vol] 105 10 3/mcL Low 130-400 [facility] ([place]) Comment on above: Performed By: #### C BC, ADIFF, ANEU #### [address] [address] #### LIP, CMP, GFR #### [address] [address] RBC (Bld) [#/Vol] 3.65 10 6/mcL Low 4.20-5.40 [facility] ([place]) Comment on above: Performed By: #### C BC, ADIFF, ANEU #### [place] [address] #### LIP, CMP, GFR #### [address] [address] WBC (Bld) [#/Vol] 4.80 10 3/mcL Normal 4.60-10.80 [facility] ([place]) Comment on above: Performed By: #### C BC, ADIFF, ANEU #### [place] [address] #### LIP, CMP, GFR #### [address] [address] CMPon 08-11-2018 Albumin [Mass/Vol] 4.3 G/dL Normal 3.5-5.0 [facility] ([place]) Comment on above: Performed By: #### C BC, ADIFF, ANEU #### [place] [address] #### LIP, CMP, GFR #### [address] [address] Albumin/Globulin [Mass ratio] 1.1 {ratio} Normal 1.1-2.5 [facility] ([place] Comment on above: Performed By: #### C BC, ADIFF, ANEU #### [place] [address] #### LIP, CMP, GFR #### [address] [address] ALP [Catalytic activity/Vol] 109 U/L Normal 40-135 [facility] ([place]) Comment on above: Performed By: #### C BC, ADIFF, ANEU #### [address] [address] #### LIP, CMP, GFR #### [address] [address] ALT [Catalytic activity/Vol] 75 U/L High 10-35 [facility] ([place]) Comment on above: Performed By: #### C BC, ADIFF, ANEU #### [address] [address] #### LIP, CMP, GFR #### [address] [address] AST [Catalytic activity/Vol] 183 U/L High 10-40 [facility] ([place]) Comment on above: Performed By: #### C BC, ADIFF, ANEU #### [address] [address] #### LIP, CMP, GFR #### [address] [address] Bili Total 2.7 mg/dL High 0.2-1.0 [facility] ([place]) Comment on above: Performed By: #### C BC, ADIFF, ANEU #### [address] [address] #### LIP, CMP, GFR #### [address] [address] Calcium [Mass/Vol] 9.0 mg/dL Normal 8.4-10.2 [facility] ([place]) Comment on above: Performed By: #### C BC, ADIFF, ANEU #### [address] [address] #### LIP, CMP, GFR #### [address] [address] Chloride [Moles/Vol] 93 mmol/L Low 98-107 [facility] ([place]) Comment on above: Performed By: #### C BC, ADIFF, ANEU #### [address] [address] #### LIP, CMP, GFR #### [address] [address] CO2 [Moles/Vol] 24 mmol/L Normal 22-29 [facility] ([place] Comment on above: Performed By: #### C BC, ADIFF, ANEU #### [address] [address] #### LIP, CMP, GFR #### [address] [address] Creatinine [Mass/Vol] 0.70 mg/dL Normal 0.55-1.02 [facility] ([place]) Comment on above: Performed By: #### C BC, ADIFF, ANEU #### [address] [address] #### LIP, CMP, GFR #### [address] [address] Electrolyte Balance 19.0 mEq/L Normal [facility] ([place]) Comment on above: Performed By: #### C BC, ADIFF, ANEU #### [address] [address] #### LIP, CMP, GFR #### [address] [address] Globulin (S) [Mass/Vol] 4.0 G/dL Normal [facility] ([place]) Comment on above: Performed By: #### C BC, ADIFF, ANEU #### [address] [address] #### LIP, CMP, GFR #### [address] [address] Glucose [Mass/Vol] 148 mg/dL High 70-105 [facility] ([place]) Comment on above: Performed By: #### C BC, ADIFF, ANEU #### [address] [address] #### LIP, CMP, GFR #### [address] [address] Potassium [Moles/Vol] 3.3 mmol/L Low 3.5-5.1 [facility] ([place]) Comment on above: Performed By: #### C BC, ADIFF, ANEU #### [address] [address] #### LIP, CMP, GFR #### [address] [address] Protein [Mass/Vol] 8.3 G/dL High 6.4-8.2 [facility] ([place]) Comment on above: Performed By: #### C BC, ADIFF, ANEU #### [address] [address] #### LIP, CMP, GFR #### [address] [address] Sodium [Moles/Vol] 136 mmol/L Normal 136-145 [facility] ([place]) Comment on above: Performed By: #### C BC, ADIFF, ANEU #### [address] [address] #### LIP, CMP, GFR #### [address] [address] Urea nitrogen [Mass/Vol] 8 mg/dL Normal 7-18 [facility] ([place]) Comment on above: Performed By: #### C BC, ADIFF, ANEU #### [address] [address] #### LIP, CMP, GFR #### [address] [address] Urea nitrogen/Creatinine [Mass ratio] 11 ratio Normal 7-27 [facility] ([place]) Comment on above: Performed By: #### C BC, ADIFF, ANEU #### [address] [address] #### LIP, CMP, GFR #### [address] [address] LIPon 08-11-2018 Lipase Level 133 U/L Normal 73-393 [facility] ([place] Comment on above: Performed By: #### C BC, ADIFF, ANEU #### [address] [address] #### LIP, CMP, GFR #### [address] [address] UAon 08-11-2018 Color (U) Red [facility] ([place] Comment on above: Performed By: #### U A, UAMICAO #### [place] [address] Glucose (U) [Mass/Vol] 100 mg/dL Negative [facility] ([place] Comment on above: Performed By: #### U A, UAMICAO #### [place] [address] Ketones Ql (U) >=160 Negative [facility] ([place] Comment on above: Performed By: #### U A, UAMICAO #### [place] [address] UA Appear Cloudy Clear [facility] ([place] Comment on above: Performed By: #### U A, UAMICAO #### [place] [address] UA Blood Small Negative [facility] ([place] Comment on above: Performed By: #### U A, UAMICAO #### [place] [address] UA Leuk Est Negative Normal Negative [facility] ([place] Comment on above: Performed By: #### U A, UAMICAO #### [place] [address] UA Nitrite Positive Negative [facility] ([place] Comment on above: Performed By: #### U A, UAMICAO #### [place] [address] UA pH 6.5 Normal 5.0 - 8.0 [facility] ([place]) Comment on above: Performed By: #### U A, UAMICAO #### [place] [address] UA Protein >=300 Negative [facility] ([place]) Comment on above: Performed By: #### U A, UAMICAO #### [address] [address] UA Spec Grav 1.025 Normal 1.015-1.025 [facility] ([place]) Comment on above: Performed By: #### U A, UAMICAO #### [address] [address] UA Specimen Type Clean Catch Normal [facility] ([place]) Comment on above: Performed By: #### U A, UAMICAO #### [address] [address] UA Urobilinogen 2.0 E.U./dL 0.2-1.0 [facility] ([place]) Comment on above: Performed By: #### U A, UAMICAO #### [place] [address] Urobilinogen Qn (U) Moderate Negative [facility] ([place]) Comment on above: Performed By: #### U A, UAMICAO #### [address] [address] US ABDOMEN LIMITEDon 05-2 019 US ABDOMEN LIMITED ORIGINAL US ABDOMEN LIMITED CLINICAL INDICATION: abdominal pain; suspect gallstones, gallbladder, or cholecystitis COMPARISON: 03/28/2016 FINDINGS: Exam is limited to the patient's body habitus and bowel gas. The pancreas is suboptimally visualized secondary to body habitus and bowel gas. The liver is prominent measuring 20 cm in length. There is increased echogenicity and coarsening of the parenchyma with masking of the portal triads which may obscure lesions. The gallbladder is distended measuring up to 9.4 cm in length and there is biliary sludge present. No gallstone or wall thickening is demonstrated. The common duct is dilated and measures 9 mm. There is no pericholecystic fluid and sonographic Adams's sign is negative. No fluid is demonstrated in Morison's pouch. Survey image of the RIGHT kidney is unremarkable. IMPRESSION: 1. Dilated common duct measuring up to 9 mm. This could be further evaluated by MRCP. 2. Biliary sludge versus artifact without definite cholelithiasis. No secondary signs to suggest acute cholecystitis. 3. Hepatomegaly and diffuse hepatic steatosis. I have personally reviewed the images of this examination and agree with the resident's findings and interpretation. Interpreted By: Pam Arizmendi MD Preliminary Report By: Ghanshyam Thompson MD Electronically Signed By: Pam Arizmendi MD Dictated Date: 08/11/2018 5:44:15 PM Prelim Date: 08/11/2018 5:50:09 PM Sign Date: 08/11/2018 5:59:02 PM Normal [facility] ([place]) MA MAMMOGRAM SCREENING BILAT ERAL W/TOMOon 05-13-2018 MA MAMMOGRAM SCREENING BILATERAL W/REGGIE ORIGINAL FROM: [place] [address] PROCEDURE FOR: FELTON [address] [place] [address] Home: PID#: [id number] Exam#: [id number] : 1970 Age: 48 TO: [employer] [place] [id number] #[id number] BILATERAL DIGITAL SCREENING MAMMOGRAM 3D/2D WITH CAD WITH MEDIOLATERAL OBLIQUE CRANIOCAUDAL: 05/13/2018 Comparison is made to exams dated: 05/30/2016 ultrasound and 05/07/2016 mammogram - [facility]. There are scattered fibroglandular elements in both breasts. Current study was also evaluated with a Computer Aided Detection (CAD) system. No significant masses, calcifications, or other findings are seen in either breast. There has been no significant interval change. IMPRESSION: NEGATIVE There is no mammographic evidence of malignancy. A 1 year screening mammogram is recommended.(05/14/20 19) AUBREY ZAMORANO MD ab/penrad:05/14/2018 10:02:40 [employer] Repairer(s): KAILA GILL RT(R), [facility] letter sent: Normal BI-RADS 1&2 Mammogram BI-RADS: 1 Negative Normal [facility] ([place]) MRI BRAIN W/ + W/O CONTRASTo n 05-07-2018 MRI BRAIN W/ + W/O CONTRAST ORIGINAL MR of the brain, 05/07/2018 3:41 PM INDICATION: CVA COMPARISON: October 2016 TECHNIQUE: 1. Axial and sagittal T1-weighted images. 2. Axial T2-weighted images. 3. Axial FLAIR images. 4. Axial diffusion-weighted images with ADC map. 5. Axial, coronal and sagittal T1-weighted images following uncomplicated administration of intravenous gadolinium contrast. FINDINGS: There is a triangular area in the mid danni, 12 mm or so in maximum diameter, which follows CSF on all sequences. The ventricles and sulci are normal in size and configuration. There are a few scattered mild T2 hyperintensities in the cerebral white matter; mills-white matter differentiation is maintained. There is no abnormal restriction of diffusion. There is no abnormal enhancement of the brain or its coverings. There is fluid in the LEFT petrous apex. The orbital contents are normal in appearance. The paranasal sinuses are clear. 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 Otherwise no change. Interpreted By: Mike Rubio MD Preliminary Report By: Mike Rubio MD Electronically Signed By: Mike Rubio MD Dictated Date: 05/07/2018 4:03:29 PM Prelim Date: 05/07/2018 4:03:29 PM Sign Date: 05/07/2018 4:15:20 PM Normal [facility]) MITOon 02-27-2017 Mitochondrial Ab Neg 20 Normal Neg 20 [facility]) Comment on above: Result Comment: Neg 20 Performed By: #### G FR, CMP, CBC, DIFF, MORPH, ALC, AMM ####[address] [place], [place] [address] SMUSCon 02-27-2017 Smooth Muscle Ab Neg 20 Normal Neg 20 [facility] ([place] Comment on above: Result Comment: Neg 20 Performed By: #### G FR, CMP, CBC, DIFF, MORPH, ALC, AMM ####[address] [place], [place] [address] CUSon 02-26-2017 Copper (s) 93 UG/DL Normal 85-155 [facility]) Comment on above: Result Comment: This test was developed and its performance characteristics determined by [facility] ([facility]). It has not been cleared or approved by the FDA. [facility] is regulated under CLIA as qualified to perform high-complexity testing. This test is used for clinical purposes. It should not be regarded as investigational or for research.Performed By:[facility] [place], [place] [address]Wxl Director: Shani Magana M.D.[facility]#: [id number]#: Performed By: #### G FR, CMP, CBC, DIFF, MORPH, ALC, AMM ####[address] [place], [place] [address] .Auto Diffon 02-25-2017 Basophils Auto #/vol (Bld) 0.00 10 3/mcL Normal 0.00-0.27 [facility] ([place]) Comment on above: Performed By: #### G FR, CMP, CBC, DIFF, MORPH, ALC, AMM ####[address] [place], [place] [address] Basophils/100 WBC Auto (Bld) 0.3 % Normal 0.0-2.5 [facility] ([place]) Comment on above: Performed By: #### G FR, CMP, CBC, DIFF, MORPH, ALC, AMM ####[address] [place], [place] [address] Eosinophils 0.10 10 3/mcL Normal 0.00-0.65 [facility] ([place]) Comment on above: Performed By: #### G FR, CMP, CBC, DIFF, MORPH, ALC, AMM ####[address] [place], [place] [address] Eosinophils/100 leukocytes 1.5 % Normal 0.0-6.0 [facility] ([place]) Comment on above: Performed By: #### G FR, CMP, CBC, DIFF, MORPH, ALC, AMM ####[address] [place], [place] [address] Lymphocytes 1.20 10 3/mcL Normal 0.90-4.32 [facility] ([place]) Comment on above: Performed By: #### G FR, CMP, CBC, DIFF, MORPH, ALC, AMM ####[address] [place], [place] [address] Lymphocytes/100 leukocytes 12.5 % Low 20.0-40.0 [facility] ([place] Comment on above: Performed By: #### G FR, CMP, CBC, DIFF, MORPH, ALC, AMM ####[address] [place], [place] [address] Monocytes 0.60 10 3/mcL Normal 0.09-1.40 [facility] ([place] Comment on above: Performed By: #### G FR, CMP, CBC, DIFF, MORPH, ALC, AMM ####[address] [place], [place] [address] Monocytes/100 leukocytes 6.5 % Normal 2.0-13.0 [facility] ([place] Comment on above: Performed By: #### G FR, CMP, CBC, DIFF, MORPH, ALC, AMM ####[address] [place], [place] [address] Neutrophils/100 WBC Auto (Bld) 79.2 % High 50.0-75.0 [facility] ([place] Comment on above: Performed By: #### G FR, CMP, CBC, DIFF, MORPH, ALC, AMM ####[address] [place], [place] [address] .GFRon 02-25-2017 eGFR (non-black) mL/min/{1.73_m2} Normal [facility] ([place]) Comment on above: Result Comment: GFR Population mean for , Non- Americans Ages 20-29 = 116 mL/min/1.73 sq.m. Ages 30-39 = 107 mL/min/1.73 sq.m. Ages 40-49 = 99 mL/min/1.73 sq.m. Ages 50-59 = 93 mL/min/1.73 sq.m. Ages 60-69 = 85 mL/min/1.73 sq.m. Ages 70+ = 75 mL/min/1.73 sq.m.Chronic Kidney Disease: Less than 60 mL/min/1.73 square metersEnd Stage Renal Disease: Less than 15 mL/min/1.73 square meters Performed By: #### G FR, CMP, CBC, DIFF, MORPH, ALC, AMM ####[address] [place], [place] [address] .NEUABSon 02-25-2017 Neutrophils 7.40 10 3/mcL Normal 2.25-8.10 [facility] ([place]) Comment on above: Performed By: #### G FR, CMP, CBC, DIFF, MORPH, ALC, AMM ####[address] [place], [place] [address] ANAon 02-25-2017 POONAM Titer 40 {titer} Normal Neg 40 [facility] ([place] Comment on above: Performed By: #### G FR, CMP, CBC, DIFF, MORPH, ALC, AMM ####[address] [place], [place] [address] BILADon 02-25-2017 Bili Direct 3.4 mg/dL High 0.0-0.4 [facility] ([place] Comment on above: Performed By: #### G FR, CMP, CBC, DIFF, MORPH, ALC, AMM ####[address] [place], [place] [address] CBCon 02-25-2017 Erythrocyte distribution width Auto Ratio (RBC) 14.5 % Normal 11.5-15.5 [facility] ([place] Comment on above: Performed By: #### G FR, CMP, CBC, DIFF, MORPH, ALC, AMM ####[address] [place], [place] [address] Erythrocytes (RBC) 2.53 10 6/mcL Low 4.10-5.30 [facility] ([place]) Comment on above: Performed By: #### G FR, CMP, CBC, DIFF, MORPH, ALC, AMM ####[address] [place], [place] [address] Hematocrit (HCT) 27.5 % Low 34.0-46.0 [facility] ([place]) Comment on above: Performed By: #### G FR, CMP, CBC, DIFF, MORPH, ALC, AMM ####[address] [place], [place] [address] Hemoglobin mass conc (Bld) 9.6 G/dL Low 12.0-16.0 [facility] ([place] Comment on above: Performed By: #### G FR, CMP, CBC, DIFF, MORPH, ALC, AMM ####[address] [place], [place] [address] MCH 37.7 pg High 27.0-33.0 [facility] ([place]) Comment on above: Performed By: #### G FR, CMP, CBC, DIFF, MORPH, ALC, AMM ####[address] [place], [place] [address] MCHC mass conc (RBC) 34.7 G/dL Normal 32.0-36.0 [facility] ([place]) Comment on above: Performed By: #### G FR, CMP, CBC, DIFF, MORPH, ALC, AMM ####[address] [place], [place] [address] MCV 108.5 fL High 80.0-99.0 [facility] ([place]) Comment on above: Performed By: #### G FR, CMP, CBC, DIFF, MORPH, ALC, AMM ####[address] [place], [place] [address] Platelet mean volume (PMV) 10.5 fL Normal 6.6-10.5 [facility] ([place] Comment on above: Performed By: #### G FR, CMP, CBC, DIFF, MORPH, ALC, AMM ####[address] [place], [place] [address] Platelets 102 10 3/mcL Low 150-450 [facility] ([place] Comment on above: Performed By: #### G FR, CMP, CBC, DIFF, MORPH, ALC, AMM ####[address] [place], [place] [address] WBC (Leukocytes) 9.40 10 3/mcL Normal 4.50-10.80 [facility] ([place]) Comment on above: Performed By: #### G FR, CMP, CBC, DIFF, MORPH, ALC, AMM ####[facility] [place], [place] [address] CMPon 02-25-2017 Calcium 8.0 mg/dL Low 8.4-10.1 [facility] ([place] Comment on above: Performed By: #### G FR, CMP, CBC, DIFF, MORPH, ALC, AMM ####[address] [place] [address] BUN/Creatinine Ratio 4.8 ratio Low 10.0-22.0 [facility] ([place]) Comment on above: Performed By: #### G FR, CMP, CBC, DIFF, MORPH, ALC, AMM ####[place] [address] [place] [address] Creatinine 0.63 mg/dL Normal 0.50-1.20 [facility] ([place]) Comment on above: Performed By: #### G FR, CMP, CBC, DIFF, MORPH, ALC, AMM ####[place] [address] [place] [address] Alanine aminotransferase (ALT) 120 U/L High 10-49 [facility] ([place]) Comment on above: Performed By: #### G FR, CMP, CBC, DIFF, MORPH, ALC, AMM ####[place] [address] [place] [address] Albumin/Globulin Ratio 0.8 {ratio} Low 0.9-1.6 [facility] ([place]) Comment on above: Performed By: #### G FR, CMP, CBC, DIFF, MORPH, ALC, AMM ####[place] [address] [place] [address] Alk Phos 148 U/L High 38-126 [facility] ([place]) Comment on above: Performed By: #### G FR, CMP, CBC, DIFF, MORPH, ALC, AMM ####[facility] [place] [address] Bili Total 3.9 mg/dL High 0.2-1.2 [facility] ([place]) Comment on above: Performed By: #### G FR, CMP, CBC, DIFF, MORPH, ALC, AMM ####[place] [address] [place], [place] [address] Globulin 2.7 G/dL Normal 1.5-3.8 [facility] ([place] Comment on above: Performed By: #### G FR, CMP, CBC, DIFF, MORPH, ALC, AMM ####[place] [address] [place], [place] [address] Protein 4.8 G/dL Low 6.0-8.5 [facility] ([place] Comment on above: Performed By: #### G FR, CMP, CBC, DIFF, MORPH, ALC, AMM ####[place] [address] [place], [place] [address] Albumin 2.1 G/dL Low 3.2-4.8 [facility] ([place] Comment on above: Performed By: #### G FR, CMP, CBC, DIFF, MORPH, ALC, AMM ####[address] [address] [place], [place] [address] Aspartate aminotransferase (AST) 257 U/L High 8-34 [facility] ([place] Comment on above: Performed By: #### G FR, CMP, CBC, DIFF, MORPH, ALC, AMM ####[place] [address] [place], [place] [address] Chloride 98 mmol/L Normal 98-110 [facility] ([place] Comment on above: Performed By: #### G FR, CMP, CBC, DIFF, MORPH, ALC, AMM ####[place] [address] [place], [place] [address] CO2 30 mmol/L Normal 22-32 [facility] ([place] Comment on above: Performed By: #### G FR, CMP, CBC, DIFF, MORPH, ALC, AMM ####[place] [address] [place], [place] [address] Electrolyte Balance 9.0 mEq/L Normal 4.0-15.0 [facility] ([place]) Comment on above: Performed By: #### G FR, CMP, CBC, DIFF, MORPH, ALC, AMM ####[address] [place], [place] [address] Glucose mass conc 104 mg/dL Normal 70-110 [facility] ([place] Comment on above: Performed By: #### G FR, CMP, CBC, DIFF, MORPH, ALC, AMM ####[place] [address] [place], [place] [address] Potassium molar conc 4.0 mmol/L Normal 3.5-5.0 [facility] ([place]) Comment on above: Performed By: #### G FR, CMP, CBC, DIFF, MORPH, ALC, AMM ####[place] [address] [place], [place] [address] Sodium 137 mmol/L Normal 136-145 [facility]) Comment on above: Performed By: #### G FR, CMP, CBC, DIFF, MORPH, ALC, AMM ####[address] [place], [place] [address] Urea nitrogen 3.0 mg/dL Low 8.0-22.0 [facility]) Comment on above: Performed By: #### G FR, CMP, CBC, DIFF, MORPH, ALC, AMM ####[address] [place], [place] [address] Depart Summaryon 02-25-2017 Depart Summary Normal [facility]) Discharge Summaryon 02-26-20 17 Discharge Summary Normal [facility]) HEPACon 02-25-2017 Hep A IgM Ab Negative Normal Negative [facility]) Comment on above: Performed By: #### G FR, CMP, CBC, DIFF, MORPH, ALC, AMM ####[address] [place], [place] [address] Hep A IgM Ab Int No serological evidence of a current Hepatitis A infection. Normal [facility] ([place] Comment on above: Performed By: #### G FR, CMP, CBC, DIFF, MORPH, ALC, AMM ####[place] [address] [place], [place] [address] Hep B Core IgM Ab Negative Normal Negative [facility] ([place] Comment on above: Result Comment: No s erological evidence of ACUTE Hepatitis B infection. Performed By: #### G FR, CMP, CBC, DIFF, MORPH, ALC, AMM ####[address] [address] [place], [place] [address] Hep B Surf Ag Negative Normal Negative [facility] [place] Comment on above: Performed By: #### G FR, CMP, CBC, DIFF, MORPH, ALC, AMM ####[place] [address] [place], [place] [address] Hep C Ab Negative Normal Negative [facility] [place] Comment on above: Performed By: #### G FR, CMP, CBC, DIFF, MORPH, ALC, AMM ####[place] [address] [place], [place] [address] Hep C Ab Int No serological evidence of Hepatitis C infection, although levels of anti-HCV may be undetectable in early infection. Normal [facility] [place] Comment on above: Performed By: #### G FR, CMP, CBC, DIFF, MORPH, ALC, AMM ####[place] [address] [place], [place] [address] Inpatient Patient Summaryon 02-25-2017 Inpatient Patient Summary Normal [facility] ([place] Internal Medicine Progress N oteon 02-25-2017 Internal Medicine Progress Note Normal [facility] [place] UAon 02-25-2017 UA Appear Clear Normal Clear [facility] [place] Comment on above: Performed By: #### G FR, CMP, CBC, DIFF, MORPH, ALC, AMM ####[place] [address] [place], [place] [address] UA Blood Negative Normal Neg-Trace [facility] [place] Comment on above: Performed By: #### G FR, CMP, CBC, DIFF, MORPH, ALC, AMM ####[place] [address] [place], [place] [address] UA Leuk Est Trace Normal Negative [facility] [place] Comment on above: Performed By: #### G FR, CMP, CBC, DIFF, MORPH, ALC, AMM ####[place] [address] [place], [place] [address] UA Nitrite Negative Normal Negative [facility] [place] Comment on above: Performed By: #### G FR, CMP, CBC, DIFF, MORPH, ALC, AMM ####[place] [address] [place], [place] [address] UA pH 8.0 Normal 5.0 - 8.0 [facility] ([place] Comment on above: Performed By: #### G FR, CMP, CBC, DIFF, MORPH, ALC, AMM ####[place] [address] [place], [place] [address] UA Protein Negative Normal Negative [facility] [place] Comment on above: Performed By: #### G FR, CMP, CBC, DIFF, MORPH, ALC, AMM ####[place] [address] [place], [place] [address] UA Spec Grav 1.010 Normal 1.006-1.029 [facility] [place] Comment on above: Performed By: #### G FR, CMP, CBC, DIFF, MORPH, ALC, AMM ####[place] [address] [place], [place] [address] UA Specimen Type Clean Catch Normal [facility] [place] Comment on above: Performed By: #### G FR, CMP, CBC, DIFF, MORPH, ALC, AMM ####[place] [address] [place], [place] [address] UA Urobilinogen 1.0 E.U./dL Normal 0.2-1.0 [facility] ([place] Comment on above: Performed By: #### G FR, CMP, CBC, DIFF, MORPH, ALC, AMM ####[place] [address] [place], [place] [address] Urine, color Dark Yellow Normal [facility] [place] Comment on above: Performed By: #### G FR, CMP, CBC, DIFF, MORPH, ALC, AMM ####[place] [address] [place], [place] [address] Urine, glucose 100 mg/dL Abnormal Negative [facility] [place] Comment on above: Performed By: #### G FR, CMP, CBC, DIFF, MORPH, ALC, AMM ####[address] [place], [place] [address] Urine, ketones presence Negative Normal Neg-Trace [facility] [place] Comment on above: Performed By: #### G FR, CMP, CBC, DIFF, MORPH, ALC, AMM ####[place] [address] [place], [place] [address] Urine, urobilinogen Moderate Abnormal Neg-Trace [facility] ([place]) Comment on above: Performed By: #### G FR, CMP, CBC, DIFF, MORPH, ALC, AMM ####[place] [address] [place], [place] [address] .Auto Diffon 02-24-2017 Basophils Auto #/vol (Bld) 0.00 10 3/mcL Normal 0.00-0.27 [facility] ([place] Comment on above: Performed By: #### T OXSC, UA, UAMICAO ####[place] [address] [place], [place] [address] Basophils/100 WBC Auto (Bld) 0.2 % Normal 0.0-2.5 [facility] ([place] Comment on above: Performed By: #### T OXSC, UA, UAMICAO ####[place] [address] [place], [place] [address] Eosinophils 0.10 10 3/mcL Normal 0.00-0.65 [facility] ([place] Comment on above: Performed By: #### T OXSC, UA, UAMICAO ####[place] [address] [place], [place] [address] Eosinophils/100 leukocytes 1.6 % Normal 0.0-6.0 [facility] ([place] Comment on above: Performed By: #### T OXSC, UA, UAMICAO ####[place] [address] [place], [place] [address] Lymphocytes 0.60 10 3/mcL Low 0.90-4.32 [facility] ([place] Comment on above: Performed By: #### T OXSC, UA, UAMICAO ####[place] [address] [place], [place] [address] Lymphocytes/100 leukocytes 7.6 % Low 20.0-40.0 [facility] ([place] Comment on above: Performed By: #### T OXSC, UA, UAMICAO ####[place] [address] [place], [place] [address] Monocytes 0.70 10 3/mcL Normal 0.09-1.40 [facility] ([place] Comment on above: Performed By: #### T OXSC, UA, UAMICAO ####[place] [address] [place], [place] [address] Monocytes/100 leukocytes 9.0 % Normal 2.0-13.0 [facility] ([place] Comment on above: Performed By: #### Zack OXSC, UA, UAMICAO ####[place] [address] [place], [place] [address] Neutrophils/100 WBC Auto (Bld) 81.6 % High 50.0-75.0 [facility] ([place] Comment on above: Performed By: #### Zack OXSC, UA, UAMICAO ####[place] [address] [place], [place] [address] .GFRon 02-24-2017 eGFR (non-black) mL/min/{1.73_m2} Normal [facility] ([place]) Comment on above: Result Comment: GFR Population mean for , Non- Americans Ages 20-29 = 116 mL/min/1.73 sq.m. Ages 30-39 = 107 mL/min/1.73 sq.m. Ages 40-49 = 99 mL/min/1.73 sq.m. Ages 50-59 = 93 mL/min/1.73 sq.m. Ages 60-69 = 85 mL/min/1.73 sq.m. Ages 70+ = 75 mL/min/1.73 sq.m.Chronic Kidney Disease: Less than 60 mL/min/1.73 square metersEnd Stage Renal Disease: Less than 15 mL/min/1.73 square meters Performed By: #### T OXSC, UA, UAMICAO ####[address] [address] [place], [place] [address] .NEUABSon 02-24-2017 Neutrophils 6.20 10 3/mcL Normal 2.25-8.10 [facility] ([place] Comment on above: Performed By: #### Zack OXSC, UA, UAMICAO ####[place] [address] [place], [place] [address] CBCon 02-24-2017 Erythrocyte distribution width Auto Ratio (RBC) 14.2 % Normal 11.5-15.5 [facility] ([place] Comment on above: Performed By: #### T OXSC, UA, UAMICAO ####[place] [address] [place], [place] [address] Erythrocytes (RBC) 2.53 10 6/mcL Low 4.10-5.30 [facility] ([place]) Comment on above: Performed By: #### T OXSC, UA, UAMICAO ####[address] [place], [place] [address] Hematocrit (HCT) 27.8 % Low 34.0-46.0 [facility] ([place] Comment on above: Performed By: #### T OXSC, UA, UAMICAO ####[address] [place], [place] [address] Hemoglobin mass conc (Bld) 9.5 G/dL Low 12.0-16.0 [facility] ([place] Comment on above: Performed By: #### T OXSC, UA, UAMICAO ####[place] [address] [place], [place] [address] MCH 37.4 pg High 27.0-33.0 [facility] ([place] Comment on above: Performed By: #### T OXSC, UA, UAMICAO ####[address] [address] [place], [place] [address] MCHC mass conc (RBC) 34.1 G/dL Normal 32.0-36.0 [facility] ([place]) Comment on above: Performed By: #### T OXSC, UA, UAMICAO ####[address] [place], [place] [address] MCV 109.8 fL High 80.0-99.0 [facility] ([place] Comment on above: Performed By: #### T OXSC, UA, UAMICAO ####[place] [address] [place], [place] [address] Platelet mean volume (PMV) 10.1 fL Normal 6.6-10.5 [facility] ([place] Comment on above: Performed By: #### T OXSC, UA, UAMICAO ####[address] [place], [place] [address] Platelets 65 10 3/mcL Low 150-450 [facility] ([place] Comment on above: Performed By: #### T OXSC, UA, UAMICAO ####[place] [address] [place], [place] [address] WBC (Leukocytes) 7.60 10 3/mcL Normal 4.50-10.80 [facility] ([place]) Comment on above: Performed By: #### T OXSC, UA, UAMICAO ####[place] [address] [place], [place] [address] CMPon 02-24-2017 Albumin/Globulin Ratio 0.8 {ratio} Low 0.9-1.6 [facility] ([place] Comment on above: Performed By: #### T OXSC, UA, UAMICAO ####[place] [address] [place], [place] [address] Alk Phos 127 U/L High 38-126 [facility] ([place] Comment on above: Performed By: #### T OXSC, UA, UAMICAO ####[place] [address] [place], [place] [address] Bili Total 3.0 mg/dL High 0.2-1.2 [facility] ([place] Comment on above: Performed By: #### T OXSC, UA, UAMICAO ####[place] [address] [place], [place] [address] Globulin 2.5 G/dL Normal 1.5-3.8 [facility] ([place] Comment on above: Performed By: #### T OXSC, UA, UAMICAO ####[address] [address] [place], [place] [address] Potassium molar conc 2.2 mmol/L Critically abnormal 3.5-5.0 [facility] ([place] Comment on above: Performed By: #### T OXSC, UA, UAMICAO ####[address] [place], [place] [address] Protein 4.6 G/dL Low 6.0-8.5 [facility] ([place] Comment on above: Performed By: #### T OXSC, UA, UAMICAO ####[address] [place], [place] [address] Alanine aminotransferase (ALT) 118 U/L High 10-49 [facility] [place] Comment on above: Performed By: #### T OXSC, UA, UAMICAO ####[address] [address] [place], [place] [address] Albumin 2.1 G/dL Low 3.2-4.8 [facility] ([place] Comment on above: Performed By: #### T OXSC, UA, UAMICAO ####[address] [place], [place] [address] Aspartate aminotransferase (AST) 371 U/L High 8-34 [facility] [place] Comment on above: Performed By: #### T OXSC, UA, UAMICAO ####[address] [place], [place] [address] BUN/Creatinine Ratio 12.9 ratio Normal 10.0-22.0 [facility] ([place] Comment on above: Performed By: #### T OXSC, UA, UAMICAO ####[address] [place], [place] [address] Calcium 7.2 mg/dL Low 8.4-10.1 [facility] ([place] Comment on above: Performed By: #### T OXSC, UA, UAMICAO ####[address] [place], [place] [address] Chloride 98 mmol/L Normal 98-110 [facility] ([place] Comment on above: Performed By: #### T OXSC, UA, UAMICAO ####[address] [place], [place] [address] CO2 29 mmol/L Normal 22-32 [facility] ([place] Comment on above: Performed By: #### T OXSC, UA, UAMICAO ####[address] [place], [place] [address] Creatinine 0.70 mg/dL Normal 0.50-1.20 [facility] ([place] Comment on above: Performed By: #### T OXSC, UA, UAMICAO ####[address] [place], [place] [address] Electrolyte Balance 11.0 mEq/L Normal 4.0-15.0 [facility] ([place] Comment on above: Performed By: #### T OXSC, UA, UAMICAO ####[address] [place], [place] [address] Glucose mass conc 112 mg/dL High 70-110 [facility] [place] Comment on above: Performed By: #### T OXSC, UA, UAMICAO ####[address] [place], [place] [address] Sodium 138 mmol/L Normal 136-145 [facility] [place] Comment on above: Performed By: #### T OXSC, UA, UAMICAO ####[address] [place], [place] [address] Urea nitrogen 9.0 mg/dL Normal 8.0-22.0 [facility] ([place] Comment on above: Performed By: #### T OXSC, UA, UAMICAO ####[address] [place], [place] [address] Rakesh 02-24-2017 Potassium molar conc 3.3 mmol/L Low 3.5-5.0 [facility] ([place]) Comment on above: Performed By: #### G FR, CMP, CBC, DIFF, MORPH, ALC, AMM ####[place] [place], [place] [address] MGon 02-24-2017 Magnesium 1.6 mg/dL Normal 1.6-2.4 [facility] ([place] Comment on above: Performed By: #### G FR, CMP, CBC, DIFF, MORPH, ALC, AMM ####[place] [place], [place] [address] .Auto Diffon 02-23-2017 Basophils Auto #/vol (Bld) 0.00 10 3/mcL Normal 0.00-0.27 [facility] ([place]) Comment on above: Performed By: #### T OXSC, UA, UAMICAO ####[address] [place], [place] [address] Basophils/100 WBC Auto (Bld) 0.2 % Normal 0.0-2.5 [facility] ([place]) Comment on above: Performed By: #### T OXSC, UA, UAMICAO ####[address] [place], [place] [address] Eosinophils 0.00 10 3/mcL Normal 0.00-0.65 [facility] ([place] Comment on above: Performed By: #### T OXSC, UA, UAMICAO ####[address] [place], [place] [address] Eosinophils/100 leukocytes 0.5 % Normal 0.0-6.0 [facility] ([place] Comment on above: Performed By: #### T OXSC, UA, UAMICAO ####[address] [place], [place] [address] Lymphocytes 0.60 10 3/mcL Low 0.90-4.32 [facility] ([place] Comment on above: Performed By: #### T OXSC, UA, UAMICAO ####[address] [place], [place] [address] Lymphocytes/100 leukocytes 7.6 % Low 20.0-40.0 [facility] ([place] Comment on above: Performed By: #### T OXSC, UA, UAMICAO ####[address] [place], [place] [address] Monocytes 0.70 10 3/mcL Normal 0.09-1.40 [facility] ([place]) Comment on above: Performed By: #### T OXSC, UA, UAMICAO ####[address] [place], [place] [address] Monocytes/100 leukocytes 8.7 % Normal 2.0-13.0 [facility] ([place] Comment on above: Performed By: #### T OXSC, UA, UAMICAO ####[address] [place], [place] [address] Neutrophils/100 WBC Auto (Bld) 83.0 % High 50.0-75.0 [facility] ([place] Comment on above: Performed By: #### T OXSC, UA, UAMICAO ####[address] [place], [place] [address] .GFRon 02-23-2017 eGFR (non-black) 55 ml/min/1.73sqm Normal [facility] ([place]) Comment on above: Result Comment: GFR Population mean for , Non- Americans Ages 20-29 = 116 mL/min/1.73 sq.m. Ages 30-39 = 107 mL/min/1.73 sq.m. Ages 40-49 = 99 mL/min/1.73 sq.m. Ages 50-59 = 93 mL/min/1.73 sq.m. Ages 60-69 = 85 mL/min/1.73 sq.m. Ages 70+ = 75 mL/min/1.73 sq.m.Chronic Kidney Disease: Less than 60 mL/min/1.73 square metersEnd Stage Renal Disease: Less than 15 mL/min/1.73 square meters Performed By: #### T OXSC, UA, UAMICAO ####[address] [place], [place] [address] eGFR (non-black) mL/min/{1.73_m2} Normal [facility] ([place]) Comment on above: Result Comment: GFR Population mean for , Non- Americans Ages 20-29 = 116 mL/min/1.73 sq.m. Ages 30-39 = 107 mL/min/1.73 sq.m. Ages 40-49 = 99 mL/min/1.73 sq.m. Ages 50-59 = 93 mL/min/1.73 sq.m. Ages 60-69 = 85 mL/min/1.73 sq.m. Ages 70+ = 75 mL/min/1.73 sq.m.Chronic Kidney Disease: Less than 60 mL/min/1.73 square metersEnd Stage Renal Disease: Less than 15 mL/min/1.73 square meters Performed By: #### T OXSC, UA, UAMICAO ####[address] [place], [place] [address] .Morphon 02-23-2017 Anisocytosis presence Slight Normal [facility] ([place] Comment on above: Performed By: #### T OXSC, UA, UAMICAO ####[address] [place] [address] Hypochrom Slight Normal [facility] [place] Comment on above: Performed By: #### T OXSC, UA, UAMICAO ####[address] [place] [address] Macrocytosis Slight Normal [facility] ([place] Comment on above: Performed By: #### T OXSC, UA, UAMICAO ####[address] [place] [address] Platelets Grt Decreased Normal [facility] ([place] Comment on above: Performed By: #### T OXSC, UA, UAMICAO ####[address] [place] [address] Poik Slight Normal [facility] [place] Comment on above: Performed By: #### T OXSC, UA, UAMICAO ####[address] [place] [address] Stomatocytes Few [facility] ([place] Comment on above: Performed By: #### T OXSC, UA, UAMICAO ####[address] [place] [address] Target Cell Few [facility] ([place] Comment on above: Performed By: #### T OXSC, UA, UAMICAO ####[address] [place] [address] .NEUABSon 02-23-2017 Neutrophils 6.20 10 3/mcL Normal 2.25-8.10 [facility] ([place] Comment on above: Performed By: #### T OXSC, UA, UAMICAO ####[address] [place], [place] [address] Glo 02-23-2017 Ammonia see comment Normal [facility] ([place] Comment on above: Result Comment: See separate report Performed By: #### G FR, CMP, CBC, DIFF, MORPH, ALC, AMM ####[address] [place], [place] [address] B12on 02-23-2017 Cobalamins (Vitamin B12) 1637 pg/mL High 211-911 [facility] ([place] Comment on above: Performed By: #### T OXSC, UA, UAMICAO ####[address] [place], [place] [address] BMPon 02-23-2017 Potassium molar conc 2.0 mmol/L Critically abnormal 3.5-5.0 [facility] ([place] Comment on above: Performed By: #### T OXSC, UA, UAMICAO ####[address] [place], [place] [address] BUN/Creatinine Ratio 26.2 ratio High 10.0-22.0 [facility] ([place]) Comment on above: Performed By: #### T OXSC, UA, UAMICAO ####[address] [place], [place] [address] Calcium 7.7 mg/dL Low 8.4-10.1 [facility] ([place] Comment on above: Performed By: #### T OXSC, UA, UAMICAO ####[address] [place], [place] [address] Chloride 91 mmol/L Low 98-110 [facility] [place] Comment on above: Performed By: #### T OXSC, UA, UAMICAO ####[address] [place], [place] [address] CO2 29 mmol/L Normal 22-32 [facility] [place] Comment on above: Performed By: #### T OXSC, UA, UAMICAO ####[address] [place], [place] [address] Creatinine 1.07 mg/dL Normal 0.50-1.20 [facility] ([place] Comment on above: Performed By: #### T OXSC, UA, UAMICAO ####[address] [place], [place] [address] Electrolyte Balance 14.0 mEq/L Normal 4.0-15.0 [facility] ([place] Comment on above: Performed By: #### T OXSC, UA, UAMICAO ####[address] [place], [place] [address] Glucose mass conc 74 mg/dL Normal 70-110 [facility] [place] Comment on above: Performed By: #### T OXSC, UA, UAMICAO ####[address] [place], [place] [address] Sodium 134 mmol/L Low 136-145 [facility] ([place] Comment on above: Performed By: #### T OXSC, UA, UAMICAO ####[address] [place], [place] [address] Urea nitrogen 28.0 mg/dL High 8.0-22.0 [facility] ([place] Comment on above: Performed By: #### T OXSC, UA, UAMICAO ####[address] [place], [place] [address] CBCon 02-23-2017 Erythrocyte distribution width Auto Ratio (RBC) 14.4 % Normal 11.5-15.5 [facility] ([place] Comment on above: Performed By: #### T OXSC, UA, UAMICAO ####[address] [place], [place] [address] Erythrocytes (RBC) 2.84 10 6/mcL Low 4.10-5.30 [facility] ([place]) Comment on above: Performed By: #### T OXSC, UA, UAMICAO ####[address] [place], [place] [address] Hematocrit (HCT) 30.8 % Low 34.0-46.0 [facility] ([place] Comment on above: Performed By: #### T OXSC, UA, UAMICAO ####[address] [place], [place] [address] Hemoglobin mass conc (Bld) 10.8 G/dL Low 12.0-16.0 [facility] ([place] Comment on above: Performed By: #### T OXSC, UA, UAMICAO ####[address] [place], [place] [address] MCH 38.1 pg High 27.0-33.0 [facility] [facility] [place] ([place]) Comment on above: Performed By: #### T OXSC, UA, UAMICAO ####[address] [place], [place] [address] MCHC mass conc (RBC) 35.2 G/dL Normal 32.0-36.0 [facility] ([place]) Comment on above: Performed By: #### T OXSC, UA, UAMICAO ####[address] [place], [place] [address] MCV 108.1 fL High 80.0-99.0 [facility] ([place]) Comment on above: Performed By: #### T OXSC, UA, UAMICAO ####[address] [place], [place] [address] Platelet mean volume (PMV) 10.9 fL High 6.6-10.5 [facility] ([place]) Comment on above: Performed By: #### T OXSC, UA, UAMICAO ####[address] [place], [place] [address] Platelets 45 10 3/mcL Low 150-450 [facility] ([place]) Comment on above: Performed By: #### T OXSC, UA, UAMICAO ####[address] [place], [place] [address] WBC (Leukocytes) 7.50 10 3/mcL Normal 4.50-10.80 [facility] ([place]) Comment on above: Performed By: #### T OXSC, UA, UAMICAO ####[address] [place], [place] [address] CT ABDOMEN W/ CONTRASTon CT ABDOMEN W/ CONTRAST ORIGINALCT ABDOMEN W/ CONTRAST CLINICAL STATEMENT: cirrhosis , fever. COMPARISON: None This exam was performed according to our departmental dose-optimization program which includes automated exposure control, adjustment of the mA and/or kVp according to patient size and/or use of iterative reconstruction technique where applicable. FINDINGS: Visualized lung bases demonstrates mild bibasilar dependent atelectatic changes. Liver demonstrates diffuse hypodensity consistent with fatty infiltration. The spleen, pancreas, gallbladder, adrenal glands and kidneys are within normal limits. No hydronephrosis or biliary dilatation. No dilated loops of bowel to suggest obstruction. Mild amount of stool in the colon. Mild wall thickening and inflammatory changes of the right colon, only partly visualized on this CT study. There is no significant abdominal or retroperitoneal para-aortic lymphadenopathy. Abdominal aorta mildly calcified without aneurysm. IMPRESSION: Findings of right-sided colitis are suspected, likely infectious/inflammato ry in etiology, not fully visualized on this study which is CT of the abdomen only. Hepatic steatosis, nonspecific finding which can be due to multiple etiologies. Interpreted By: Enrique Veloz MDPreliminary Report By: Enrique Veloz MDElectronically Signed By: Enrique Veloz MD Dictated Date: 02/23/2017 8:10:06 PM Prelim Date: 02/23/2017 8:10:06 PM Sign Date: 02/23/2017 8:14:41 PM Normal [facility] ([place]) FOLon 02-23-2017 Folate 13.6 ng/mL Normal 1.1-20.0 [facility] ([place]) Comment on above: Performed By: #### T OXSC, UA, UAMICAO ####[address] [place], [place] [address] History and Physicalon 02-23 History and Physical Normal [facility] ([place]) Rakesh 02-23-2017 Potassium molar conc 3.0 mmol/L Low 3.5-5.0 [facility] ([place]) Comment on above: Performed By: #### T OXSC, UA, UAMICAO ####[address] [place], [place] [address] MGon 02-23-2017 Magnesium 2.2 mg/dL Normal 1.6-2.4 [facility] ([place]) Comment on above: Result Comment: Spec imen slightly hemolyzed. Results may be falsely elevated. Performed By: #### T OXSC, UA, UAMICAO ####[address] [place], [place] [address] [facility] Note on 02-23-2017 [facility] Note Normal [facility] ([place]) .GFRon 02-22-2017 eGFR (non-black) 26 ml/min/1.73sqm Normal A [facility] ([place]) Comment on above: Result Comment: GFR Population mean for , Non- Americans Ages 20-29 = 116 mL/min/1.73 sq.m. Ages 30-39 = 107 mL/min/1.73 sq.m. Ages 40-49 = 99 mL/min/1.73 sq.m. Ages 50-59 = 93 mL/min/1.73 sq.m. Ages 60-69 = 85 mL/min/1.73 sq.m. Ages 70+ = 75 mL/min/1.73 sq.m.Chronic Kidney Disease: Less than 60 mL/min/1.73 square metersEnd Stage Renal Disease: Less than 15 mL/min/1.73 square meters Performed By: #### G FR, CMP, CBC, DIFF, MORPH, ALC, AMM ####[address] [place], [place] [address] eGFR (non-black) 32 ml/min/1.73sqm Normal A [facility] ([place]) Comment on above: Result Comment: GFR Population mean for , Non- Americans Ages 20-29 = 116 mL/min/1.73 sq.m. Ages 30-39 = 107 mL/min/1.73 sq.m. Ages 40-49 = 99 mL/min/1.73 sq.m. Ages 50-59 = 93 mL/min/1.73 sq.m. Ages 60-69 = 85 mL/min/1.73 sq.m. Ages 70+ = 75 mL/min/1.73 sq.m.Chronic Kidney Disease: Less than 60 mL/min/1.73 square metersEnd Stage Renal Disease: Less than 15 mL/min/1.73 square meters Performed By: #### G FR, CMP, CBC, DIFF, MORPH, ALC, AMM ####[address] [place], [place] [address] .Manual Diffon 02-22-2017 Bands 26.0 % High 0.0-5.0 [facility] ([place] Comment on above: Performed By: #### G FR, CMP, CBC, DIFF, MORPH, ALC, AMM ####[address] [place], [place] [address] Basophil %, Manual 0.0 % Normal 0.0-2.5 [facility] ([place]) Comment on above: Performed By: #### G FR, CMP, CBC, DIFF, MORPH, ALC, AMM ####[address] [place], [place] [address] Basophil, Abs Manual 0.00 10 3/mcL Normal 0.00-0.19 [facility] ([place]) Comment on above: Performed By: #### G FR, CMP, CBC, DIFF, MORPH, ALC, AMM ####[address] [place], [place] [address] Eosinophil, Abs Manual 0.00 10 3/mcL Normal 0.00-0.40 [facility] ([place] Comment on above: Performed By: #### G FR, CMP, CBC, DIFF, MORPH, ALC, AMM ####[address] [place], [place] [address] Lymphocyte %, Manual 5.0 % Low 10.0-50.0 [facility] ([place]) Comment on above: Performed By: #### G FR, CMP, CBC, DIFF, MORPH, ALC, AMM ####[address] [place], [place] [address] Lymphocyte, Abs Manual 0.60 10 3/mcL Low 0.77-3.85 [facility] ([place] Comment on above: Performed By: #### G FR, CMP, CBC, DIFF, MORPH, ALC, AMM ####[address] [place], [place] [address] Metamyelocytes/100 leukocytes 3.0 % Normal [facility] ([place] Comment on above: Performed By: #### G FR, CMP, CBC, DIFF, MORPH, ALC, AMM ####[address] [place], [place] [address] Monocyte %, Manual 8.0 % Normal 1.7-13.0 [facility] ([place]) Comment on above: Result Comment: 0.0 Performed By: #### G FR, CMP, CBC, DIFF, MORPH, ALC, AMM ####[address] [place], [place] [address] Monocyte, Abs Manual 1.00 10 3/mcL Normal 0.15-1.00 A [facility] ([place]) Comment on above: Performed By: #### G FR, CMP, CBC, DIFF, MORPH, ALC, AMM ####[address] [place], [place] [address] Neutrophil %, Manual 58.0 % Normal 37.0-80.0 [facility] ([place]) Comment on above: Performed By: #### G FR, CMP, CBC, DIFF, MORPH, ALC, AMM ####[address] [place], [place] [address] Neutrophil, Abs Manual 7.80 10 3/mcL High 2.85-6.16 [facility] ([place] Comment on above: Performed By: #### G FR, CMP, CBC, DIFF, MORPH, ALC, AMM ####[address] [place], [place] [address] .Morphon 02-22-2017 Macrocytosis Moderate Normal [facility] ([place] Comment on above: Performed By: #### G FR, CMP, CBC, DIFF, MORPH, ALC, AMM ####[address] [place], [place] [address] Platelets Grt Decreased Normal [facility] ([place] Comment on above: Performed By: #### G FR, CMP, CBC, DIFF, MORPH, ALC, AMM ####[address] [place], [place] [address] Stomatocytes Several Normal [facility] ([place] Comment on above: Performed By: #### G FR, CMP, CBC, DIFF, MORPH, ALC, AMM ####[address] [place], [place] [address] Toxic Gran Slight Normal [facility] ([place] Comment on above: Performed By: #### G FR, CMP, CBC, DIFF, MORPH, ALC, AMM ####[address] [place], [place] [address] .Urinalysis Microscopic (AO) on 02-22-2017 UA Bacteria 4+ /hpf Abnormal [facility] ([place] Comment on above: Performed By: #### T OXSC, UA, UAMICAO ####[address] [place], [place] [address] UA Squam Epithelial 5-10 Abnormal None Seen [facility] ([place]) Comment on above: Performed By: #### T OXSC, UA, UAMICAO ####[address] [place] [address] UA WBC LOADED Abnormal None Seen [facility] ([place] Comment on above: Performed By: #### T OXSC, UA, UAMICAO ####[address] [place] [address] Urine, erythrocytes 5-10 Abnormal None Seen [facility] ([place] Comment on above: Performed By: #### T OXSC, UA, UAMICAO ####[address] [place] [address] Yousif 02-22-2017 Ethanol Level <10 Normal [facility] ([place] Comment on above: Performed By: #### G FR, CMP, CBC, DIFF, MORPH, ALC, AMM ####[address] [place], [place] [address] CBCon 02-22-2017 Erythrocyte distribution width Auto Ratio (RBC) 14.3 % Normal 11.5-14.5 [facility] ([place] Comment on above: Performed By: #### G FR, CMP, CBC, DIFF, MORPH, ALC, AMM ####[address] [place] [address] Erythrocytes (RBC) 2.85 10 6/mcL Low 4.20-5.40 [facility] ([place]) Comment on above: Performed By: #### G FR, CMP, CBC, DIFF, MORPH, ALC, AMM ####[address] [place] [address] Hematocrit (HCT) 30.4 % Low 37.0-47.0 [facility] ([place] Comment on above: Performed By: #### G FR, CMP, CBC, DIFF, MORPH, ALC, AMM ####[address] [place] [address] Hemoglobin mass conc (Bld) 10.7 G/dL Low 12.0-16.0 [facility] ([place] Comment on above: Performed By: #### G FR, CMP, CBC, DIFF, MORPH, ALC, AMM ####[address] [place] [address] MCH 37.5 pg High 27.0-31.2 [facility] ([place] Comment on above: Performed By: #### G FR, CMP, CBC, DIFF, MORPH, ALC, AMM ####[address] [place] [address] MCHC mass conc (RBC) 35.1 G/dL Normal 33.0-37.0 [facility] ([place]) Comment on above: Performed By: #### G FR, CMP, CBC, DIFF, MORPH, ALC, AMM ####[address] [place] [address] MCV 106.7 fL High 80.0-94.0 [facility] ([place] Comment on above: Performed By: #### G FR, CMP, CBC, DIFF, MORPH, ALC, AMM ####[address] [place] [address] Platelet mean volume (PMV) 11.3 fL High 7.4-10.4 [facility] ([place] Comment on above: Performed By: #### G FR, CMP, CBC, DIFF, MORPH, ALC, AMM ####[address] [place] [address] Platelets 44 10 3/mcL Low 130-400 [facility] ([place] Comment on above: Performed By: #### G FR, CMP, CBC, DIFF, MORPH, ALC, AMM ####[address] [place] [address] WBC (Leukocytes) 9.30 10 3/mcL Normal 4.60-10.80 [facility] ([place]) Comment on above: Performed By: #### G FR, CMP, CBC, DIFF, MORPH, ALC, AMM ####[address] [place], [place] [address] CMPon 02-22-2017 Aspartate aminotransferase (AST) 183 U/L High 10-40 [facility] [place] Comment on above: Performed By: #### G FR, CMP, CBC, DIFF, MORPH, ALC, AMM ####[address] [place], [place] [address] Alanine aminotransferase (ALT) 46 U/L High 10-35 [facility] ([place] Comment on above: Performed By: #### G FR, CMP, CBC, DIFF, MORPH, ALC, AMM ####[address] [place], [place] [address] Albumin 3.4 G/dL Low 3.5-5.0 [facility] ([place] Comment on above: Performed By: #### G FR, CMP, CBC, DIFF, MORPH, ALC, AMM ####[address] [place], [place] [address] Albumin/Globulin Ratio 1.4 {ratio} Normal 1.1-2.5 [facility] ([place] Comment on above: Performed By: #### G FR, CMP, CBC, DIFF, MORPH, ALC, AMM ####[address] [place], [place] [address] Alk Phos 104 IU/L Normal 40-135 [facility] ([place] Comment on above: Performed By: #### G FR, CMP, CBC, DIFF, MORPH, ALC, AMM ####[address] [place], [place] [address] Bili Total 6.3 mg/dL High 0.2-1.0 [facility] ([place] Comment on above: Performed By: #### G FR, CMP, CBC, DIFF, MORPH, ALC, AMM ####[address] [place], [place] [address] BUN/Creatinine Ratio 16 ratio Normal 7-27 [facility] ([place]) Comment on above: Performed By: #### G FR, CMP, CBC, DIFF, MORPH, ALC, AMM ####[address] [place], [place] [address] Calcium 8.2 mg/dL Low 8.4-10.2 [facility] ([place] Comment on above: Performed By: #### G FR, CMP, CBC, DIFF, MORPH, ALC, AMM ####[address] [place], [place] [address] Chloride 82 mmol/L Low 98-107 [facility] ([place] Comment on above: Performed By: #### G FR, CMP, CBC, DIFF, MORPH, ALC, AMM ####[address] [place], [place] [address] CO2 29 mmol/L Normal 22-29 [facility] ([place] Comment on above: Performed By: #### G FR, CMP, CBC, DIFF, MORPH, ALC, AMM ####[address] [place], [place] [address] Creatinine 2.0 mg/dL High 0.6-1.2 [facility] ([place] Comment on above: Performed By: #### G FR, CMP, CBC, DIFF, MORPH, ALC, AMM ####[address] [place], [place] [address] Electrolyte Balance 12.0 mEq/L Normal [facility] ([place] Comment on above: Performed By: #### G FR, CMP, CBC, DIFF, MORPH, ALC, AMM ####[address] [place], [place] [address] Globulin 2.5 G/dL Normal [facility] ([place] Comment on above: Performed By: #### G FR, CMP, CBC, DIFF, MORPH, ALC, AMM ####[address] [place], [place] [address] Glucose mass conc 123 mg/dL High 70-105 [facility] ([place] Comment on above: Performed By: #### G FR, CMP, CBC, DIFF, MORPH, ALC, AMM ####[address] [place], [place] [address] Potassium molar conc 2.1 mmol/L Critically abnormal 3.5-5.1 [facility] ([place] Comment on above: Performed By: #### G FR, CMP, CBC, DIFF, MORPH, ALC, AMM ####[address] [place], [place] [address] Protein 5.9 G/dL Low 6.0-8.3 [facility] ([place] Comment on above: Performed By: #### G FR, CMP, CBC, DIFF, MORPH, ALC, AMM ####[address] [place], [place] [address] Sodium 123 mmol/L Low 136-146 [facility] ([place] Comment on above: Performed By: #### G FR, CMP, CBC, DIFF, MORPH, ALC, AMM ####[address] [place], [place] [address] Urea nitrogen 31.6 mg/dL High 7.0-18.0 [facility] ([place] Comment on above: Performed By: #### G FR, CMP, CBC, DIFF, MORPH, ALC, AMM ####[address] [place], [place] [address] CT HEAD OR BRAIN W/O CONTRAS Ton 02-22-2017 CT HEAD OR BRAIN W/O CONTRAST ORIGINALCT HEAD OR BRAIN W/O CONTRAST Clinical Statement: Confusion; possible seizure, fall TECHNIQUE: Axial CT images from skull base to vertex without IV contrast. This exam was performed according to our departmental dose optimization program, including but not limited to: automated exposure control, adjustment of the mAs and/or kVp according to patient size and/or exam, and use of an iterative reconstruction algorithm where applicable. COMPARISON: None. FINDINGS: There is no intracranial hemorrhage, mass, mass effect or abnormal extra-axial fluid collection. No CT evidence for acute infarction. The density in the larger dural venous sinuses is grossly normal. The ventricles are normal. The skull base and calvarium demonstrate no abnormality. There is moderate sinus mucosal thickening of the left sphenoid sinus. The included mastoid air cells are clear. IMPRESSION: No acute intracranial abnormality. I have personally reviewed the images of this examination and agree with the resident's findings and interpretation. Interpreted By: Charles Randall MDPreliminary Report By: Jonathan Reynoso DOElectronically Signed By: Charles Randall MD Dictated Date: 02/22/2017 3:45:57 PM Prelim Date: 02/22/2017 3:49:27 PM Sign Date: 02/22/2017 4:06:17 PM Normal [facility] ([place]) TOXSCon 02-22-2017 QC TOXSC Valid [facility] ([place] Comment on above: Performed By: #### T OXSC, UA, UAMICAO ####[address] [place], [place] [address] U Ampheta (AO) Negative [facility] ([place] Comment on above: Performed By: #### T OXSC, UA, UAMICAO ####[address] [place], [place] [address] U Roxanne (AO) Negative [facility] ([place] Comment on above: Performed By: #### T OXSC, UA, UAMICAO ####[address] [place], [place] [address] U Rafael (AO) Negative [facility] ([place] Comment on above: Performed By: #### T OXSC, UA, UAMICAO ####[address] [place], [place] [address] U Cannab (AO) Negative [facility] ([place] Comment on above: Performed By: #### T OXSC, UA, UAMICAO ####[address] [place], [place] [address] U Cocaine (AO) Negative [facility] ([place] Comment on above: Performed By: #### T OXSC, UA, UAMICAO ####[address] [place], [place] [address] U Methadone (AO) Negative [facility] ([place] Comment on above: Performed By: #### T OXSC, UA, UAMICAO ####[address] [place], [place] [address] U PCP (AO) Negative [facility] ([place] Comment on above: Performed By: #### T OXSC, UA, UAMICAO ####[address] [place], [place] [address] U TCA (AO) Negative [facility] ([place] Comment on above: Performed By: #### T OXSC, UA, UAMICAO ####[address] [place], [place] [address] Urine Opiates (AO) Negative [facility] ([place] Comment on above: Performed By: #### T OXSC, UA, UAMICAO ####[address] [place], [place] [address] UAon 02-22-2017 UA Appear CLOUDY [facility] ([place] Comment on above: Performed By: #### T OXSC, UA, UAMICAO ####[address] [place], [place] [address] UA Blood LARGE [facility] ([place] Comment on above: Performed By: #### T OXSC, UA, UAMICAO ####[address] [place], [place] [address] UA Leuk Est MODERATE [facility] ([place] Comment on above: Performed By: #### T OXSC, UA, UAMICAO ####[address] [place], [place] [address] UA Nitrite Positive [facility] ([place] Comment on above: Performed By: #### T OXSC, UA, UAMICAO ####[address] [place], [place] [address] UA pH 5.0 [facility] ([place] Comment on above: Performed By: #### T OXSC, UA, UAMICAO ####[address] [place], [place] [address] UA Protein 100 mg/dL Abnormal Negative [facility] [place] Comment on above: Performed By: #### T OXSC, UA, UAMICAO ####[address] [place] [address] UA Spec Grav 1.025 Normal [facility] ([place] Comment on above: Performed By: #### T OXSC, UA, UAMICAO ####[address] [place], [place] [address] UA Specimen Type Void Normal [facility] [place] Comment on above: Performed By: #### T OXSC, UA, UAMICAO ####[address] [place], [place] [address] UA Urobilinogen 4.0 E.U./dL Abnormal [facility] ([place] Comment on above: Performed By: #### T OXSC, UA, UAMICAO ####[address] [place], [place] [address] Urine, color ORANGE Normal [facility] [place] Comment on above: Performed By: #### T OXSC, UA, UAMICAO ####[address] [place], [place] [address] Urine, glucose Negative Normal [facility] [place] Comment on above: Performed By: #### T OXSC, UA, UAMICAO ####[address] [place], [place] [address] Urine, ketones presence TRACE Normal [facility] ([place] Comment on above: Performed By: #### T OXSC, UA, UAMICAO ####[address] [place], [place] [address] Urine, urobilinogen MODERATE Normal [facility] ([place] Comment on above: Performed By: #### T OXSC, UA, UAMICAO ####[address] [place], [place] [address] XR CHEST 1 VIEWon 02-22-2017 XR CHEST 1 VIEW ORIGINALXR CHEST 1 VIEW PORTABLE AP upright TIME: 30 7:00 PM CLINICAL STATEMENT: Confusion, altered mental status, poor historian COMPARISON: None FINDINGS: The cardiomediastinal contours are normal. Small calcified granuloma projects over the fifth left intercostal space. There is no consolidation, vascular congestion, pleural effusion, or pneumothorax. Bony structures are unremarkable. IMPRESSION: No acute process. I have personally reviewed the images of this examination and agree with the resident's findings and interpretation. Interpreted By: Jaquan Ovallereliminary Report By: Jonathan Reynoso DOElectronically Signed By: Jaquan Ovalle MD Dictated Date: 02/22/2017 4:08:01 PM Prelim Date: 02/22/2017 4:09:07 PM Sign Date: 02/22/2017 4:25:08 PM Normal [facility] ([place]) Vital Signs Date Time Vital Sign Value Performing Clinician Trace singh 02-05-2024 09:45-0400 Body height 161.3 cm Lakia Bridenthal SCHOOL GUIDANCE COUNSELOR - COMMUNICATION ELECTRONIC TECHNICIAN Work Phone: [employer] 02-05-2024 09:45-0400 Body mass index (BMI) [Ratio] 29.54 kg/m2 Lakia Bridenthal SCHOOL GUIDANCE COUNSELOR - COMMUNICATION ELECTRONIC TECHNICIAN Work Phone: [employer] 02-05-2024 09:45-0400 Body temperature 98.29 [degF] Lakia Bridenthal SCHOOL GUIDANCE COUNSELOR - COMMUNICATION ELECTRONIC TECHNICIAN Work Phone: [employer] 02-05-2024 09:45-0400 Body weight 76.84 kg Lakia Bridenthal SCHOOL GUIDANCE COUNSELOR - COMMUNICATION ELECTRONIC TECHNICIAN Work Phone: [employer] 02-05-2024 09:45-0400 Diastolic blood pressure 79 mm[Hg] Lakia Bridenthal SCHOOL GUIDANCE COUNSELOR - COMMUNICATION ELECTRONIC TECHNICIAN Work Phone: [employer] 02-05-2024 09:45-0400 Heart rate 84 /min Lakia Bridenthal SCHOOL GUIDANCE COUNSELOR - COMMUNICATION ELECTRONIC TECHNICIAN Work Phone: [employer] 02-05-2024 09:45-0400 Respiratory rate 18 /min Lakia Bridenthal SCHOOL GUIDANCE COUNSELOR - COMMUNICATION ELECTRONIC TECHNICIAN Work Phone: [employer] 02-05-2024 09:45-0400 SaO2% (BldA) [Mass fraction] 97 % Lakia Bridenthal SCHOOL GUIDANCE COUNSELOR - COMMUNICATION ELECTRONIC TECHNICIAN Work Phone: [employer] 02-05-2024 09:45-0400 Systolic blood pressure 111 mm[Hg] Lakia Bridenthal SCHOOL GUIDANCE COUNSELOR - COMMUNICATION ELECTRONIC TECHNICIAN Work Phone: [employer] 01-07-2024 08:56-0400 Body height 161.3 cm Monico Siegel MD Work Phone: [employer] 01-07-2024 08:56-0400 Body mass index (BMI) [Ratio] 30.9 kg/m2 Monico Siegel MD Work Phone: [employer] 01-07-2024 08:56-0400 Body weight 80.38 kg Monico Siegel MD Work Phone: [employer] 01-07-2024 08:56-0400 Diastolic blood pressure 84 mm[Hg] Monico Siegel MD Work Phone: [employer] 01-07-2024 08:56-0400 Heart rate 88 /min Monico Siegel MD Work Phone: [employer] 01-07-2024 08:56-0400 SaO2% (BldA) [Mass fraction] 97 % Monico Siegel MD Work Phone: [employer] 01-07-2024 08:56-0400 Systolic blood pressure 134 mm[Hg] Monico Siegel MD Work Phone: [facility] Encounters Encounter Date Encounter Type Care Provider Facility Start: 03-02-2024 End: 03-02-2024 Refill Monico Siegel MD Work Phone: [facility] Comment on above: Primary hypertension Start: 02-05-2024 End: 02-05-2024 Assay of hemosiderin, quant Lakia Mckeonmelissa SCHOOL GUIDANCE COUNSELOR - COMMUNICATION ELECTRONIC TECHNICIAN Work Phone: [employer] Start: 02-05-2024 End: 02-05-2024 Patient encounter procedure Lakia Mckeonyonasjerome SCHOOL GUIDANCE COUNSELOR - COMMUNICATION ELECTRONIC TECHNICIAN Work Phone: [facility] Comment on above: Colon cancer screeni ng (Primary Dx); Tobacco dependence; Encounter for screening mammogram for malignant neoplasm of breast; Primary hypertension; Anxiety; Annual physical exam; Nicotine dependence, cigarettes, uncomplicated; Routine general medical examination at health care facility; Seizure disorder (CMS/HCC) (HCC) Start: 02-05-2024 End: 02-05-2024 ambulatory [facility] Start: 02-05-2024 End: 02-05-2024 Encounter for general adult medical examination without abnormal findings [facility] Start: 01-12-2024 End: 01-12-2024 Refill Monico Siegel MD Work Phone: [facility] Start: 01-08-2024 End: 01-12-2024 Telephone encounter Monico Siegel MD Work Phone: [facility] Comment on above: Results; Release of Information Start: 01-07-2024 End: 01-07-2024 Office outpatient new 45 minutes Monico Siegel MD Work Phone: [facility] Comment on above: Seizure disorder (CM S/HCC) (HCC) (Primary Dx); Primary hypertension; Coronary artery disease involving table mountain coronary artery of table mountain heart without angina pectoris; Anxiety; Screening for diabetes mellitus; Screening for deficiency anemia Start: 01-07-2024 End: 01-07-2024 ambulatory MONICO SIEGEL [facility] Start: 12-23-2023 End: 12-23-2023 Telephone encounter Monico Siegel MD Work Phone: [facility] Comment on above: New Patient Start: 02-22-2017 End: 02-25-2017 Evaluation and management of inpatient GINA OCHOA Facility:A Start: 02-22-2017 End: 02-22-2017 Emergency department patient visit YARIEL PUCKETT Facility:[facility] Start: 12-17-2016 Ambulatory PHY WO ID REFERRING Fac ility:[facility] Procedures Date Procedure Procedure Detail Performing Clinician Start: 01-07-2024 Adult depression scr eening assessment Monico Siegel MD Work Phone: Start: 01-07-2024 Lipid 1996 panel - S christine or Plasma Monico Siegel MD Work Phone: Start: 10-07-2022 Mammography Monico contreras MD Work Phone: Plan of Treatment Date Care Activity Detail Author Start: 2031 RSV Immunization age d 60 or older (1 - 1-dose 60+ series) RSV Immunization aged 60 or older (1 - 1-dose 60+ series) [facility] Start: 02-10-2029 DTaP/Tdap/Td Vaccine s (2 - Td or Tdap) DTaP/Tdap/Td Vaccines (2 - Td or Tdap) [facility] Start: 01-06-2029 Lipid panel Lipid Panel [facility] Start: 02-23-2027 Screening for malign ant neoplasm of colon [facility] Start: 03-06-2025 Medicare Annual Well ness (AWV) Medicare Annual Wellness (AWV) [facility] Start: 02-04-2025 Pneumococcal Vaccine : Pediatrics (0 to 5 Years) and At-Risk Patients (6 to 64 Years) (1 of 2 - PCV) Pneumococcal Vaccine: Pediatrics (0 to 5 Years) and At-Risk Patients (6 to 64 Years) (1 of 2 - PCV) [facility] Comment on above: Postponed from 03/15 (Patient Refused) Start: 01-06-2025 Depression Screening Depression Scre ening [facility] Start: 01-06-2025 Hepatitis B Vaccines (1 of 3 - 19+ 3-dose series) Hepatitis B Vaccines (1 of 3 - 19+ 3-dose series) [facility] Comment on above: Postponed from 03/15 (Patient Refused) Start: 01-06-2025 HIV screening HIV Screening [facility] Comment on above: Postponed from 03/15 (Patient Refused) Start: 07-09-2024 Depression Monitoring Depression Mon itoring [facility] Start: 05-04-2024 End: 05-04-2024 Patient encounter procedure [facility] Start: 03-07-2024 End: 04-06-2025 DBT Breast - bilateral screening Bilateral screening mammogram with tomosynthesis Imaging Routine Encounter for screening mammogram for malignant neoplasm of breast Expected: 03/07/2024, Expires: 04/06/2025 [facility] Comment on above: Expected: 03/07/2024 , Expires: 04/06/2025 Start: 02-08-2024 Influenza vaccination Influenza Vacc ine (#1) [facility] Start: 02-05-2024 End: 02-04-2025 CT Chest for screening WO contrast CT lung screening low dose Imaging Routine Tobacco dependence Nicotine dependence, cigarettes, uncomplicated Expected: 02/05/2024, Expires: 02/04/2025 [facility] Comment on above: Expected: 02/05/2024 , Expires: 02/04/2025 Start: 02-05-2024 End: 02-05-2024 Patient encounter procedure 02/05/2024 9:40 AM EDT Office Visit [facility] [address] [place], [place] [id number] Lakia Traylor, SCHOOL GUIDANCE COUNSELOR - COMMUNICATION ELECTRONIC TECHNICIAN [address] [facility] [place] [address] [facility] Start: 01-07-2024 End: 01-06-2025 CBC panel - Blood by Automated count CBC Lab Routine Screening for deficiency anemia Expected: 01/07/2024 (Approximate), Expires: 01/06/2025 [facility] Comment on above: Expected: 01/07/2024 (Approximate), Expires: 01/06/2025 Start: 01-07-2024 End: 01-06-2025 Comprehensive metabolic 1998 panel - Serum or Plasma Comprehensive metabolic panel Lab Routine Seizure disorder (CMS/HCC) (HCC) Primary hypertension Expected: 01/07/2024 (Approximate), Expires: 01/06/2025 [facility] Work Phone: Comment on above: Expected: 01/07/2024 (Approximate), Expires: 01/06/2025 Start: 01-07-2024 End: 01-06-2025 Lipid 1996 panel - Serum or Plasma Lipid panel Lab Routine Coronary artery disease involving table mountain coronary artery of table mountain heart without angina pectoris Expected: 01/07/2024 (Approximate), Expires: 01/06/2025 [facility] Comment on above: Expected: 01/07/2024 (Approximate), Expires: 01/06/2025 Start: 01-07-2024 End: 01-07-2024 Patient encounter procedure 01/07/2024 9:00 AM EDT Office Visit [facility] [place] [address] Monico Siegel MD [address] [place] [address] [place] [id number] [facility] Start: 10-08-2023 Screening for malign ant neoplasm of breast Mammogram [facility] Start: 02-07-2023 COVID-19 Vaccine ( season) COVID-19 Vaccine () [facility] Start: 2021 Screening for malign ant neoplasm of lung Lung Cancer Screening [facility] Start: 2021 Zoster Vaccines (1 of 2) Zoster Vacc veronique (1 of 2) [facility] Start: 2011 Screening for malign ant neoplasm of breast Mammogram [facility] Start: 2001 Screening for malign ant neoplasm of cervix [facility] Start: 1992 Screening for malign ant neoplasm of cervix Pap Smear [facility] Start: 1990 Hepatitis A Vaccines (1 of 2 - Risk 2-dose series) Hepatitis A Vaccines (1 of 2 - Risk 2-dose series) [facility] Start: 1990 Hepatitis B Vaccines (1 of 3 - 19+ 3-dose series) Hepatitis B Vaccines (1 of 3 - 19+ 3-dose series) [facility] Start: 1989 Diabetes mellitus screening Diabetes Screening [facility] Start: 1989 Hepatitis C screening Hepatitis C Sc reening [facility] Start: 1983 Depression Screening Depression Scre ening [facility] Start: 1977 Pneumococcal Vaccine : Pediatrics (0 to 5 Years) and At-Risk Patients (6 to 64 Years) (1 of 2 - PCV) Pneumococcal Vaccine: Pediatrics (0 to 5 Years) and At-Risk Patients (6 to 64 Years) (1 of 2 - PCV) [facility] Start: 1972 MMR Vaccines (1 of 1 - Standard series) MMR Vaccines (1 of 1 - Standard series) [facility] Start: 1971 HIV screening HIV Screening [facility]: 1971 Lipid panel Lipid Panel [facility] Start: 1971 Medicare Annual Well ness (AWV) Medicare Annual Wellness (AWV) [facility] Start: 1971 Screening for malign ant neoplasm of colon [facility] Cologuard colon canc er screening Cologuard colon cancer screening Lab Routine Colon cancer screening Ordered: 02/05/2024 [facility] Work Phone: Comment on above: Ordered: 02/05/2024 Immunizations Immunization Date Immunization Notes Care Provider Fa cility 02-10-2019 tetanus toxoid, redu jitendra diphtheria toxoid, and acellular pertussis vaccine, adsorbed Lakia Bridenthal SCHOOL GUIDANCE COUNSELOR - COMMUNICATION ELECTRONIC TECHNICIAN Work Phone: [facility] 03-09-2008 influenza, seasonal, injectable Lakia Bridenthal SCHOOL GUIDANCE COUNSELOR - COMMUNICATION ELECTRONIC TECHNICIAN Work Phone: [facility] 03-09-2008 influenza, seasonal, injectable, preservative free Lakia Bridenthal SCHOOL GUIDANCE COUNSELOR - COMMUNICATION ELECTRONIC TECHNICIAN Work Phone: [facility] 03-09-2008 influenza virus vacc ine, unspecified formulation Monico Siegel MD Work Phone: [facility] Payers Date Payer Category Payer Medicare MEDICARE MEDICAR E PART A AND B [id number] 2020-Present [address] [place] [address] Medicare [id number] 2020 Medicare [id number] 2017 Medicaid [id number] 2017 Self-pay 2012 Unknown [id number] Social History Date Type Detail Facility Tobacco smoking status 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 [facility] Start: 1971 Sex assigned at Not on file [facility] Start: 01-07-2024 End: 02-05-2024 Gender identity Not on file [facility] Start: 06-09-1993 Tobacco smoking status MOIS Smokes t obacco daily [facility] Start: 06-09-1993 History of tobacco use Cigarette Smo ker [facility] Start: 01-07-2024 End: 02-05-2024 Cigarettes smoked current (pack per day) - Reported 0.7 [facility] Start: 01-07-2024 Tobacco use and exposure Smokeless t obacco non-user [facility] Start: 01-07-2024 End: 02-05-2024 Alcoholic beverage intake Current drinker of alcohol (finding) [facility] Adolescent depressio n screening assessment 3 [facility] Start: 02-05-2024 Alcohol Comment occasional [facility] Clinical Notes 12-23-2023 to 03-02-2024 Telephone Encounter - Jasmyn Carrera - 03/02/2024 9:48 AM EDTTelephone Encounter - Jasmyn Carrera - 03/02/2024 9:48 AM Jade Rm - 02/05/2024 9:40 AM EDTPatient InstructionsAttachments Note Date & Type Note Facility 03-02-2024 Telephone encounter Note Form atting of this note might be different from the original. Medication name: spironolactone (Aldactone) 25 MG tablet Medication dosage: 25 mg (Miligrams Monthly quantity needed: 90 How many day supply requestin days Medication route: oral (PO) Medication administration time(s): daily If taking medication PRN, reason for taking medication: N/A If this is a controlled substance do you receive this or any other controlled medication from any other doctor or facility: No Ordering provider: Dr. Siegel Date of last office visit: 02.05.2024 Date of next office visit: 05.04.2024 Date of last refill: (see medication tab): 02.05.2024 Updated/Validated preferred pharmacy: Yes Patient instructed to contact the pharmacy prior to picking up the medication: Yes [facility] 03-02-2024 Miscellaneous Notes Formattin g of this note might be different from the original. Medication name: spironolactone (Aldactone) 25 MG tablet Medication dosage: 25 mg (Miligrams Monthly quantity needed: 90 How many day supply requestin days Medication route: oral (PO) Medication administration time(s): daily If taking medication PRN, reason for taking medication: N/A If this is a controlled substance do you receive this or any other controlled medication from any other doctor or facility: No Ordering provider: Dr. Siegel Date of last office visit: 02.05.2024 Date of next office visit: 05.04.2024 Date of last refill: (see medication tab): 02.05.2024 Updated/Validated preferred pharmacy: Yes Patient instructed to contact the pharmacy prior to picking up the medication: Yes documented in this encounter [facility] 02-05-2024 Evaluation + Plan note Associ ated Problem(s): Tobacco dependence Encouraged cessation. [facility] 02-05-2024 Evaluation + Plan note Associ ated Problem(s): Anxiety Controlled. Continue Lexapro 20 mg daily [facility] 02-05-2024 Miscellaneous Notes Associate d Problem(s): Tobacco dependence Encouraged cessation. Associated Problem(s): Anxiety Controlled. Continue Lexapro 20 mg daily Associated Problem(s): Hypertension Controlled. Blood pressure 111/19, continue lisinopril 5 mg daily and spironolactone 25 mg daily Associated Problem(s): Seizure disorder (CMS/HCC) (HCC) Stable. Managed by neurology Associated Problem(s): Mixed anxiety depressive disorder Symptoms controlled on Lexapro 20 mg daily documented in this encounter [facility] 02-05-2024 Evaluation + Plan note Associ ated Problem(s): Hypertension Controlled. Blood pressure 111/19, continue lisinopril 5 mg daily and spironolactone 25 mg daily [facility] 02-05-2024 Evaluation + Plan note Associ ated Problem(s): Seizure disorder (CMS/HCC) (HCC) Stable. Managed by neurology [facility] 02-05-2024 Evaluation + Plan note Associ ated Problem(s): Mixed anxiety depressive disorder Symptoms controlled on Lexapro 20 mg daily [facility] 02-05-2024 History of Presen t illness Narrative 1) 30 day supply to [facility] in [place] Then send 90 to mail order 2 Monik needs to go over labs Patient was identified by name and Date of . Health Maintenance Addressed with Patient at Visit: MMR- declined Pneumo-declined Hep A-declined Zoster-declined Covid-declined Mammo-pended Lung CT- pended Colon- cologaurd Pap-NEEDS AT [facility] CANDIE faxed to Neuro [place] Dr. Henderson Images from the original note were not included. [facility] [address] [facility] [address] Dept: [phone] Dept Chief Complaint: Felton Armenta is an 53 y.o. female here for an annual wellness visit. Assessment/Plan : Problem List Items Addressed This Visit Seizure disorder (CMS/HCC) (HCC) Stable. Managed by neurology Hypertension Controlled. Blood pressure 111/19, continue lisinopril 5 mg daily and spironolactone 25 mg daily Relevant Medications spironolactone (Aldactone) 25 MG tablet Anxiety Controlled. Continue Lexapro 20 mg daily Relevant Medications escitalopram (Lexapro) 20 MG tablet Tobacco dependence Encouraged cessation. 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 Current Outpatient Medications Medication Sig Dispense Refill flurbiprofen (Ansaid) 100 MG tablet Take 100 mg by mouth 3 times daily as needed. lisinopril 5 MG tablet Take by mouth daily. zonisamide (Zonegran) 100 MG capsule Take 100 mg by mouth. 1 in morning and 2 at night escitalopram (Lexapro) 20 MG tablet Take 1 tablet (20 mg) by mouth daily. 90 tablet 1 spironolactone (Aldactone) 25 MG tablet Take 1 tablet (25 mg) by mouth daily. 30 tablet 0 No current facility-administered medications for this visit. Also reviewed during this visit: Problems The following health maintenance schedule was reviewed with the patient and provided in printed form in the after visit summary: Health Maintenance Topic Date Due Medicare Annual Wellness (AWV) Never done Colorectal Cancer Screening Never done Diabetes Screening Never done Hepatitis A Vaccines (1 of 2 - Risk 2-dose series) Never done Cervical Cancer Screening Never done Lung Cancer Screening Never done Mammogram 10/08/2023 Influenza Vaccine (1) 02/08/2024 Hepatitis B Vaccines (1 of 3 - 19+ 3-dose series) 01/06/2025 (Originally 1990) HIV Screening 01/06/2025 (Originally 1971) Pneumococcal Vaccine: Pediatrics (0 to 5 Years) and At-Risk Patients (6 to 64 Years) (1 of 2 - PCV) 02/04/2025 (Originally 1977) Depression Monitoring 07/09/2024 Lipid Panel 01/06/2029 DTaP/Tdap/Td Vaccines (2 - Td or Tdap) 02/10/2029 RSV Immunization aged 60 or older (1 - 1-dose 60+ series) 2031 RSV Immunization under 20 Months Aged Out HIB Vaccines Aged Out IPV Vaccines Aged Out Meningococcal Vaccine Aged Out Rotavirus Vaccines Aged Out HPV Vaccines Aged Out MMR Vaccines Discontinued Zoster Vaccines Discontinued Hepatitis C Screening Discontinued COVID-19 Vaccine Discontinued List of current healthcare providers: Patient Care Team: Monico Siegel MD as PCP - General (Family Medicine) Orders Placed This Encounter Procedures CT lung screening low dose Standing Status: Future Standing Expiration Date: 02/04/2025 Order Specific Question: Is the patient ? Answer: No Order Specific Question: For this exam, the patient must be between 50-80 years of age. Does this patient meet that criteria? Answer: Yes Order Specific Question: Does the patient show any signs or symptoms of lung cancer? Answer: No Order Specific Question: Is this the first (baseline) CT or an annual exam? Answer: Baseline [1] Order Specific Question: What is the patient's current smoking status? Answer: Current Smoker Order Specific Question: What type of nicotine is the patient using? Answer: Cigarettes Order Specific Question: What is the patient's total pack years? (must be at least 20 pack years) Answer: 30 Order Specific Question: Is there documentation of shared decision making? Answer: Yes Order Specific Question: Has it been at least 11 months since the patient's last CT scan? 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 HENT: Negative. Respiratory: Negative. Cardiovascular: Negative. Gastrointestinal: Negative. Genitourinary: Negative for difficulty urinating and menstrual problem (had ablation in 40s). Musculoskeletal: Right hip pain- waxes and wanes- chronic Neurological: Positive for headaches (occasional). Negative for dizziness and light-headedness. Psychiatric/Behavioral: Positive for sleep disturbance (recently not great d/t heat). Negative for agitation and decreased concentration. The patient is not nervous/anxious. Physical Exam Constitutional: General: She is not in acute distress. Appearance: Normal appearance. She is normal weight. She is not ill-appearing. HENT: Head: Normocephalic and atraumatic. Right Ear: Tympanic membrane, ear canal and external ear normal. There is no impacted cerumen. Left Ear: Tympanic membrane, ear canal and external ear normal. There is no impacted cerumen. Nose: Nose normal. No congestion or rhinorrhea. Mouth/Throat: Mouth: Mucous membranes are moist. Dentition: Dental caries present. Pharynx: Oropharynx is clear. Uvula midline. No oropharyngeal exudate or posterior oropharyngeal erythema. Eyes: Conjunctiva/sclera: Conjunctivae normal. Pupils: Pupils are equal, round, and reactive to light. Cardiovascular: Rate and Rhythm: Normal rate and regular rhythm. Pulses: Normal pulses. Heart sounds: Normal heart sounds. Pulmonary: Effort: Pulmonary effort is normal. No respiratory distress. Breath sounds: Normal breath sounds. Abdominal: General: Abdomen is flat. Bowel sounds are normal. Palpations: Abdomen is soft. Tenderness: There is no abdominal tenderness. There is no right CVA tenderness or left CVA tenderness. Musculoskeletal: General: Normal range of motion. Cervical back: Normal range of motion and neck supple. No rigidity or tenderness. Lymphadenopathy: Cervical: No cervical adenopathy. Skin: General: Skin is warm and dry. Findings: No erythema or rash. Neurological: General: No focal deficit present. Mental Status: She is alert and oriented to person, place, and time. Psychiatric: Mood and Affect: Mood normal. Behavior: Behavior normal. Objective : BP 111/79 Pulse 84 Temp 36.8 C (98.3 F) (Infrared) Resp 18 Ht 5' 3.5 (1.613 m) Wt 169 lb 6.4 oz (76.8 kg) SpO2 97% BMI 29.54 kg/m No results found. Subjective : Health Risk Assessment: General: General In general, how would you say your health is?: Very good In the past 7 days, have you experienced any of the following: New or Increased Pain, New or Increased Fatigue, Loneliness, Social Isolation, Stress or Anger?: (!) Yes Select all that apply: (!) Stress Do you get the social and emotional suppport you need?: Yes Health Habits/Nutrition: Health Habits / Nutrition On average, how many days per week do you engage in moderate to strenous exercise (like a brisk walk)?: 4 days On average, how man minutes do you engage in exercise at this level?: 30 min Have you lost any weight without trying in the past 3 months? : No Have you seen the dentist within the past year?: Yes Hearing/ Vision: Hearing / Vision Do you or your family notice any trouble with your hearing that hasn't been managed with hearing aids?: No Do you have difficulty driving, watching TV, or doing any of your daily activities because of your eyesight?: No Have you had an eye exam within the past year?: Yes No results found. Safety: Safety Do you have a working smoke detector?: Yes Do you have any tripping hazards - loose or unsecured carpets or rugs?: No Do you have any tripping hazards - clutter in doorways, halls, or stairs?: No Do you have either shower bars, grab bars, non-slip mats or non-slip surfaces in your shower or bathtub? : Yes Do all your stairways have a railing or banister? : Yes Do you fasten your seatbelt when you are in a car?: Yes ADL: ADL In the past 7 days, did you need help from others to take care of any of the following: laundry, housekeeping, banking / finances,shopping, telephone use, food preparation, transportation, or taking medications? : No Living Will: Living Will Do you have a living will?: No Interventions: Patient declines ACP discussion / assistance Cognitive: Cognitive Screening: Mini-Cog Clock Drawing Test (CDT): 2 Words Recalled: 3 Total Score: 5 Total Score Interpretation: Normal Mini-Cog Interventions: Fall Risk: Fall Risk One or more falls in the last year:: Yes Advised to use a cane or walker to get around safely:: Yes Feels unsteady when walking:: Yes Steadies self on furniture while walking at home:: Yes Worried about falling:: No Interventions: Depression Screening: Interventions: Tobacco Use: Social History Tobacco Use Smoking Status Every Day Current packs/day: 0.75 Average packs/day: 0.8 packs/day for 30.7 years (23.0 ttl pk-yrs) Types: Cigarettes Start date: 1993 Smokeless Tobacco Never Alcohol Use: Occasional. 6 drinks per week. Encouraged cessation documented in this encounter [facility] 02-05-2024 Instructions TAMMY Asif CNP - 02/05/2024 9:40 AM EDT Please call Central Scheduling at [phone] to schedule your outpatient test Personalized Preventative Plan for Felton Armenta - 02/05/2024 Medicare offers a range of preventative health benefits. Some of the tests and screenings are paid in full while others may be subject to a deductible, co-insurance, and / or copay. Some of these benefits include a comprehensive review of your medical history including lifestyle, illnesses that may run in your family, and various assessments and screenings as appropriate. After reviewing your medical record and screening and assessments performed today, your provider may have ordered immunizations, labs, imaging, and / or referrals for you. A list of these orders (if applicable) as well as your Preventative Care list are included within your After Visit Summary for your review. Other Preventative Recommendations: A preventive eye exam by an program production specialist is recommended every 1-2 years to screen for glaucoma, cataracts, macular degeneration, and other eye disorders. A preventive dental visit is recommended every 6 months. Try to get at least 150 minutes of exercise per week or 10,000 steps per day on a pedometer. You need 1200-1500mg of calcium and 3402-6125 international units of vitamin D per day. It is possible to meet your calcium requirement with diet alone, but a vitamin D supplement is usually necessary to meet this goal. When exposed to the sun, use a sunscreen that protects against both UVA and UVB radiation with an SPF of 30 or greater. Reapply every 2-3 hours or after sweating, drying off with a towel, or swimming. Always wear a seat belt when traveling in a car. Always wear a helmet when riding a bicycle or a motorcycle The following attachments cannot be sent through Care Everywhere.High Potassium Diet ([place])documented in this encounter [facility] 01-12-2024 Telephone encounter Note Form atting of this note might be different from the original. Patient is out of medication. Medication name: spironolactone (Aldactone) 25 MG tablet Medication dosage: 25 MG tablet Monthly quantity needed: 30 How many day supply requestin days Medication route: oral (PO) Medication administration time(s): daily If taking medication PRN, reason for taking medication: N/A If this is a controlled substance do you receive this or any other controlled medication from any other doctor or facility: N/A Ordering provider: Date of last office visit: 01/07/24 Date of next office visit: 02/05/24 Date of last refill: (see medication tab): 04/17/23 Updated/Validated preferred pharmacy: Yes Patient instructed to contact the pharmacy prior to picking up the medication: Yes [facility] 01-12-2024 Miscellaneous Notes Formattin g of this note might be different from the original. Patient is out of medication. Medication name: spironolactone (Aldactone) 25 MG tablet Medication dosage: 25 MG tablet Monthly quantity needed: 30 How many day supply requestin days Medication route: oral (PO) Medication administration time(s): daily If taking medication PRN, reason for taking medication: N/A If this is a controlled substance do you receive this or any other controlled medication from any other doctor or facility: N/A Ordering provider: Date of last office visit: 01/07/24 Date of next office visit: 02/05/24 Date of last refill: (see medication tab): 04/17/23 Updated/Validated preferred pharmacy: Yes Patient instructed to contact the pharmacy prior to picking up the medication: Yes documented in this encounter [facility] 01-12-2024 Telephone encounter Note Form atting of this note is different from the original. Message released to patient as written. ----- Message from TAMMY Asif CNP sent at 01/08/2024 6:53 AM EDT ----- CMP-potassium slightly low at 3.3, otherwise normal electrolytes normal kidney functioning. Slight elevation in AST of 45-nonconcerning, alkaline phosphatase and ALT normal. Lipid panel-total cholesterol good at 181, HDL cholesterol good at 60, triglycerides good at 65, LDL cholesterol slightly elevated at 106. CBC-mild anemia, otherwise normal cell counts. Recommend increasing dietary potassium and iron to help with anemia. Low fat, low cholesterol diet. Dietary information can be found at [email or web address] [email or web address] Patient's further questions if applicable: Patient verbalized understanding. No further questions. Were all questions from office addressed or relayed to the patient from encounter: Yes [facility] 01-12-2024 Miscellaneous Notes Formattin g of this note is different from the original. Message released to patient as written. ----- Message from TAMMY Asif CNP sent at 01/08/2024 6:53 AM EDT ----- CMP-potassium slightly low at 3.3, otherwise normal electrolytes normal kidney functioning. Slight elevation in AST of 45-nonconcerning, alkaline phosphatase and ALT normal. Lipid panel-total cholesterol good at 181, HDL cholesterol good at 60, triglycerides good at 65, LDL cholesterol slightly elevated at 106. CBC-mild anemia, otherwise normal cell counts. Recommend increasing dietary potassium and iron to help with anemia. Low fat, low cholesterol diet. Dietary information can be found at [email or web address] ing/[email or web address] Patient's further questions if applicable: Patient verbalized understanding. No further questions. Were all questions from office addressed or relayed to the patient from encounter: Yes ----- Message from TAMMY Asif CNP sent at 01/08/2024 6:53 AM EDT ----- CMP-potassium slightly low at 3.3, otherwise normal electrolytes normal kidney functioning. Slight elevation in AST of 45-nonconcerning, alkaline phosphatase and ALT normal. Lipid panel-total cholesterol good at 181, HDL cholesterol good at 60, triglycerides good at 65, LDL cholesterol slightly elevated at 106. CBC-mild anemia, otherwise normal cell counts. Recommend increasing dietary potassium and iron to help with anemia. Low fat, low cholesterol diet. Dietary information can be found at [email or web address] Called pt, no answer and vm is full. Mailbox full ----- Message from TAMMY Asif CNP sent at 01/08/2024 6:53 AM EDT ----- CMP-potassium slightly low at 3.3, otherwise normal electrolytes normal kidney functioning. Slight elevation in AST of 45-nonconcerning, alkaline phosphatase and ALT normal. Lipid panel-total cholesterol good at 181, HDL cholesterol good at 60, triglycerides good at 65, LDL cholesterol slightly elevated at 106. CBC-mild anemia, otherwise normal cell counts. Recommend increasing dietary potassium and iron to help with anemia. Low fat, low cholesterol diet. Dietary information can be found at [email or web address] [email or web address] documented in this encounter [facility] 01-12-2024 Telephone encounter Note Form atting of this note might be different from the original. ----- Message from TAMMY Asif CNP sent at 01/08/2024 6:53 AM EDT ----- CMP-potassium slightly low at 3.3, otherwise normal electrolytes normal kidney functioning. Slight elevation in AST of 45-nonconcerning, alkaline phosphatase and ALT normal. Lipid panel-total cholesterol good at 181, HDL cholesterol good at 60, triglycerides good at 65, LDL cholesterol slightly elevated at 106. CBC-mild anemia, otherwise normal cell counts. Recommend increasing dietary potassium and iron to help with anemia. Low fat, low cholesterol diet. Dietary information can be found at [email or web address] Called pt, no answer and vm is full. [facility] 01-08-2024 Telephone encounter Note Form atting of this note might be different from the original. Mailbox full T [facility] 01-08-2024 Telephone encounter Note Form atting of this note might be different from the original. ----- Message from TAMMY Asif CNP sent at 01/08/2024 6:53 AM EDT ----- CMP-potassium slightly low at 3.3, otherwise normal electrolytes normal kidney functioning. Slight elevation in AST of 45-nonconcerning, alkaline phosphatase and ALT normal. Lipid panel-total cholesterol good at 181, HDL cholesterol good at 60, triglycerides good at 65, LDL cholesterol slightly elevated at 106. CBC-mild anemia, otherwise normal cell counts. Recommend increasing dietary potassium and iron to help with anemia. Low fat, low cholesterol diet. Dietary information can be found at [email or web address] [email or web address]-[email or web address] T [facility] 01-07-2024 Evaluation + Plan note Associ ated Problem(s): Anxiety Remission, continue Lexapro 20 mg daily [facility] 01-07-2024 Evaluation + Plan note Associ ated Problem(s): Hypertension Controlled, continue lisinopril 5 mg and spironolactone 25 mg. [facility] 01-07-2024 Miscellaneous Notes Associate d Problem(s): Anxiety Remission, continue Lexapro 20 mg daily Associated Problem(s): Hypertension Controlled, continue lisinopril 5 mg and spironolactone 25 mg. Associated Problem(s): Coronary artery disease involving table [place] coronary artery of table [place] heart without angina pectoris Owen, has had no recent angina Associated Problem(s): Seizure disorder (CMS/HCC) (HCC) Owen, does not remember when her last seizure was currently is not able to drive. Continues on a gram 100 mg daily documented in this encounter [facility] 01-07-2024 Evaluation + Plan note Associ ated Problem(s): Coronary artery disease involving [place] coronary artery of [place] heart without angina pectoris Owen, has had no recent angina [facility] 01-07-2024 Evaluation + Plan note Associ ated Problem(s): Seizure disorder (CMS/HCC) (HCC) Owen, does not remember when her last seizure was currently is not able to drive. Continues on a gram 100 mg daily [facility] 01-07-2024 History of Presen t illness Narrative Patient verified by last name and date of . Images from the original note were not included. 01/07/2024 Felton Armenta (: 1970) is a 53 y.o. female , Established patient, here for evaluation of the following chief complaint(s): New Patient, Establish Care (Saw Dr Nichols in [place] ), Medication Check, and Health Maintenance (Hiv/hep c screening- refuse/Colonoscopy- refuse/Mmr vaccine- done as child/Hep b vaccine- refuse/Pap/izabela- not done in years will sched // ) ASSESSMENT/PLAN: 1. Seizure disorder (CMS/HCC) (HCC) Assessment & Plan: Stable, does not remember when her last seizure was currently is not able to drive. Continues on a gram 100 mg daily Orders: - Comprehensive metabolic panel 2. Primary hypertension Assessment & Plan: Controlled, continue lisinopril 5 mg and spironolactone 25 mg. Orders: - Comprehensive metabolic panel 3. Coronary artery disease involving [place] coronary artery of [place] heart without angina pectoris Assessment & Plan: Stable, has had no recent angina Orders: - Lipid panel 4. Anxiety Assessment & Plan: Remission, continue Lexapro 20 mg daily 5. Screening for diabetes mellitus 6. Screening for deficiency anemia - CBC Follow up in about 4 weeks (around 02/04/2024) for AWV. SUBJECTIVE/OBJECTIVE: HPI -Felton comes in today to establish as a new patient, she has a history of seizure disorder and she currently is unable to drive due to that, she does not remember when her last seizure was. She also has a history of hypertension and her blood pressure is actually good today and she is on lisinopril. She also said that she had a heart attack and had a stent placed so she has coronary artery disease. She also is a smoker smoking about a pack back and a half a day and she gives no indication she is ready to quit she says she likes it. She is on disability on Medicare and she does need an AWV so we will have to get her scheduled for that. Review of Systems Constitutional: Negative for chills and fever. Respiratory: Negative for shortness of breath. Cardiovascular: Negative for chest pain and palpitations. Gastrointestinal: Negative for abdominal pain, blood in stool, constipation and diarrhea. Genitourinary: Negative for dysuria, frequency, hematuria and urgency. Neurological: Negative for weakness and numbness. Psychiatric/Behavioral: Negative for dysphoric mood. The patient is not nervous/anxious. Vitals: 01/07/24 0856 BP: 134/84 Pulse: 88 SpO2: 97% Weight: 177 lb 3.2 oz (80.4 kg) Height: 5' 3.5 (1.613 m) Physical Exam Vitals and nursing note reviewed. Constitutional: General: She is not in acute distress. Appearance: Normal appearance. She is obese. HENT: Head: Normocephalic. Right Ear: Tympanic membrane, ear canal and external ear normal. Left Ear: Tympanic membrane, ear canal and external ear normal. Mouth/Throat: Mouth: Mucous membranes are moist. Pharynx: Oropharynx is clear. Eyes: Extraocular Movements: Extraocular movements intact. Pupils: Pupils are equal, round, and reactive to light. Neck: Vascular: No carotid bruit. Cardiovascular: Rate and Rhythm: Normal rate and regular rhythm. Heart sounds: Normal heart sounds. No murmur heard. Pulmonary: Effort: Pulmonary effort is normal. Breath sounds: Normal breath sounds. Abdominal: General: Bowel sounds are normal. Palpations: Abdomen is soft. Musculoskeletal: General: Normal range of motion. Cervical back: Normal range of motion. Lymphadenopathy: Cervical: No cervical adenopathy. Skin: General: Skin is warm and dry. Neurological: General: No focal deficit present. Mental Status: She is alert and oriented to person, place, and time. Psychiatric: Mood and Affect: Mood normal. An electronic signature was used to authenticate this note. Monico Siegel MD 01/07/2024 10:33 AM documented in this encounter [facility] 12-23-2023 Telephone encounter Note Form atting of this note might be different from the original. Name of caller: Felton Relation to patient: patient Contact phone number: [phone] Appointment scheduled with: Dr. 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 ( wheel chair, etc) : no Current medications: yes Any refills need: yes Any chronic conditions the provider should be aware of: epilepsy [facility] 12-23-2023 Miscellaneous Notes Formattin g of this note might be different from the original. Name of caller: Felton Relation to patient: patient Contact phone number: [phone] Appointment scheduled with: Dr. 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 ( wheel chair, etc) : no Current medications: yes Any refills need: yes Any chronic conditions the provider should be aware of: epilepsy documented in this encounter [facility] Evaluation note Diagnosis Seizure disorder (CMS/HCC) (HCC)- Primary Unspecified epilepsy without mention of intractable epilepsy Primary hypertension Unspecified essential hypertension Coronary artery disease involving [place] coronary artery of [place] heart without angina pectoris Anxiety Anxiety state, unspecified Screening for diabetes mellitus Screening for deficiency anemia Screening for other and unspecified deficiency anemia documented in this encounter [facility]Evaluation note* Diagnosis Colon cancer screening- Primary Special screening for malignant neoplasms, colon Tobacco dependence Tobacco use disorder Encounter for screening mammogram for malignant neoplasm of breast Primary hypertension Unspecified essential hypertension Anxiety Anxiety state, unspecified Annual physical exam Routine general medical examination at a health care facility Nicotine dependence, cigarettes, uncomplicated Routine general medical examination at health care facility Routine general medical examination at a health care facility Seizure disorder (CMS/HCC) (HCC) Unspecified epilepsy without mention of intractable epilepsy documented in this encounter [facility] note* Diagnosis Primary hypertension Unspecified essential hypertension documented in this encounter [facility]Reason for referral (narrative)* Consultation (Routine) - Pending Review Specialty Diagnoses / Procedures Referred By Tony ramon Referred To Contact Obstetrics and Gynecology Diagnoses Annual physical exam Procedures [place] OFFICE/OUTPATIENT [facility] 60 MINUTES Lakia Traylor APRN - COMMUNICATION ELECTRONIC TECHNICIAN [address] [place] [address] [facility] [employer] [address] [place] [address] Referral ID Status Reason Start Date Expiration Date Visits Requested Visits Authorized [id number] Pending Review Specialty Services Required 02/05/2024 02/04/2025 1 1 * Imaging (Routine) - Pending Review Specialty Diagnoses / Procedures Referred By Tony ramon Referred To Contact Radiology Diagnoses Tobacco dependence Nicotine dependence, cigarettes, uncomplicated Procedures CT lung screening low dose Lakia Traylor APRN - CNP [address] [facility] [address] [address] [place] [address] Referral ID Status Reason Start Date Expiration Date V isits Requested Visits Authorized [id number] Pending Review 02/05/2024 02/04/2025 1 1 [employer] Summary Purpose Family History No Family History Records FoundNo Family History Records FoundNo Family History Records FoundNo Family History Records Found Advance Directives No Advanced Directives Records FoundNo Advanced Directives Records FoundNo Advanced Directives Records FoundNo Advanced Directives Records Found Additional Source Comments INFORMATION SOURCE (unrecogn ized section and content) DATE CREATED AUTHOR 12/03/2017 [facility] ([place]) DATE CREATED AUTHOR AUTHOR'S ORGANIZ ATION 12/03/2017 [facility] DATE CREATED AUTHOR AUTHOR'S ORGANIZ ATION 03/21/2019 [facility] ([place]) DATE CREATED AUTHOR AUTHOR'S ORGANIZ ATION 03/04/2024 [facility] Reason for Visit (unrecogniz ed section and content) Reason Onset Date Comments New Patient 12/23/2023 Reason Comments New Patient Establish Care Saw Dr Nichols in [place] Medication Check Health Maintenance Hiv/hep c screening- refuseColonoscopy- refuseMmr vaccine- done as childHep b vaccine- refusePap/izabela- not done in years will sched Reason Onset Date Comments Results 01/08/2024 Release of Information 01/08/2024 Reason Onset Date Comments Med Refill 01/12/2024 Reason Comments Medicare Annual Wellness Visit Initial Reason Onset Date Comments Med Refill 03/02/2024 Care Teams (unrecognized sec tion and content) Machine Sneller Relationship Specialty Start Date End Date Monico Siegel MD [address] [place] [address] PCP - General Family Medicine 01/07/24 Machine Sneller Relationship Specialty Start Date End Date Monico Siegel MD [address] [place] [address] PCP - General Family Medicine 01/07/24 Machine Sneller Relationship Specialty Start Date End Date Monico Siegel MD [address] [place] [address] PCP - General Family Medicine 01/07/24 Machine Sneller Relationship Specialty Start Date End Date Monico Siegel MD [address] [place] [address] PCP - General Family Medicine 01/07/24 Machine Sneller Relationship Specialty Start Date End Date Monico Siegel MD [address] [place] [address] PCP - General Family Medicine 01/07/24 FOR RECORDS PERTAINING TO PATIENTS WHO ARE OR HAVE BEEN ENROLLED IN A CHEMICAL DEPENDENCY/SUBSTANCEABUSE PROGRAM, SOME INFORMATION MAY BE OMITTED. This clinical summary was aggregated from multiple sources. Caution should be exercised in using it in the provision of clinical care. This summary normalizes information from multiple sources, and as a consequence, information in this document may materially change the coding, format and clinical context of patient data. In addition, data may be omitted in some cases. CLINICAL DECISIONS SHOULD BE BASED ON THE PRIMARY CLINICAL RECORDS. [facility] [employer] [facility]. provides no warranty or guarantee of the accuracy or completeness of information in this document.
--- NOTE | 2024-03-10 22:07 | CT_ITS ---
INDICATION: diffuse abd pain, n/v EXAMINATION: CT ABDOMEN AND PELVIS WITH CONTRAST - CT Abdomen And Pelvis W/ Contrast Injection TECHNIQUE: Helically acquired images were obtained of the abdomen and pelvis following IV contrast. A radiation dose optimization technique was used for this scan. IV Contrast dosage and agent: 100 cc Isovue-300 Oral contrast: None. COMPARISON: None. FINDINGS: LOWER CHEST: Lung bases are clear. Small hiatal hernia. LIVER: Diffuse low-attenuation consistent with steatosis. No concerning focal mass. GALLBLADDER AND BILIARY TREE: No calcified gallstones. No gallbladder distension or wall edema. No intra- or extrahepatic biliary ductal dilation. PANCREAS: Coarse calcifications in the uncinate process. No solid or cystic focal mass. SPLEEN: Normal size without focal cystic or solid mass. ADRENAL GLANDS: No nodules. KIDNEYS AND URETERS: Uniform bilateral enhancement. No hydronephrosis. PERITONEUM: No ascites or free air. BOWEL: No evidence of acute appendicitis. No abnormal small bowel distention. Colon under-distended with diffuse, colonic wall thickening with minimal adjacent stranding from the transverse through the rectosigmoid colon. LYMPH NODES: No enlarged mesenteric or retroperitoneal lymph nodes. VESSELS: Aorta is non-dilated. URINARY BLADDER: Unremarkable. REPRODUCTIVE ORGANS: No pelvic masses. Uterine Essure device in place. ABDOMINAL WALL: No discrete abdominal or pelvic wall hernia. BONES: No acute or aggressive abnormality. CT/Abdomen/Pelvis W IV Cont ONLY IMPRESSION: Colonic underdistention versus colitis from the transverse through the rectosigmoid colon. Findings consistent with chronic pancreatitis. Electronically Signed: Octavio [place] MD at 0:44 EDT ,
--- NOTE | 2024-03-10 22:09 | ED.VIS.GI ---
HPI <Dr. Chris Roberts MD - Last Filed: 03/11/24 00:27> HPI - GI History of Present Illness Chief Complaint: Abd Pain Informant: patient Narrative Narrative: Patient states she has been having diffuse abdominal pain all day today as well as nonbloody emesis, with the pain being on colicky and radiating into her mid-low back nonlateralizing there. She admits to having dark stools but no blood that she has seen. She presents on a Friday, stating that she thinks this may be due to the alcohol she drank over the weekend and that she may be in withdrawal. The last drink she had was on Friday. She states she drank over 2 bottles of liquor over the weekend, she is used to drinking 0-2 beers per day but not every day. The last beer that she had prior to the weekend was sometime last week she states. She states yesterday on Friday she was asymptomatic and had no issues throughout the day and did not feel like she was in withdrawal. [facility] <Dr. Chris Roberts MD - Last Filed: 03/11/24 00:27> [facility] Medical History Health care maintenance Trochanteric bursitis, right hip Chronic back pain Breast cancer screening Pain in joint involving right pelvic region and thigh Migraine without aura and without status migrainosus, not intractable Wears glasses Cancer Bipolar disorder Depression Anxiety Alcohol use Marijuana use Low iron Easy bruising Injury of back Injury of head and neck Loss of consciousness Syncope Seizures Smoker Leg cramps Cardiology follow-up encounter Hypertension Multiple joint pain Heart valve disease Potassium (K) deficiency Vision problem History of pancreatitis Carpal tunnel syndrome Back problem Arthritis Anemia Seasonal allergies AA (alcohol abuse) UTERINE ABLATION Attempted suicide Difficulty balancing Seizures Diarrhea Hypertension Home Medications ?Medication ?Instructions ?Recorded ?Last Taken ?Type spironolactone 25 mg tablet 25 mg PO DAILY #90 tabs 07/16/22 Unknown Rx escitalopram oxalate 20 mg tablet 20 mg PO DAILY #90 tabs 11/20/23 Unknown Rx lisinopril 5 mg tablet 5 mg PO DAILY #30 tabs 01/06/24 Unknown Rx flurbiprofen 100 mg tablet 100 mg PO TID PRN pain #270 tabs 01/29/24 Unknown Rx zonisamide 100 mg capsule 100 mg .Route .COMPLEX EPILEPSY 01/29/24 Unknown Rx #90 caps Allergy/AdvReac Type Severity Reaction Status Date / Time Penicillins Allergy Other Verified 03/10/24 21:26 bupropion HCl (From AdvReac Depression Verified 03/10/24 21:26 Wellbutrin) Family History Aunt Breast cancer Thyroid disorder Father Cancer Grandfather Cancer Mother Diabetes Hypertension Grandmother Myocardial infarction Heart disease Hypertension Cancer Hypercholesterolemia Other Cerebral aneurysm Surgical History History of endometrial ablation History of tubal ligation S/P skin cancer resection H/O heart artery stent bladder sling History of heart surgery Social History Smoking Status: Current every day smoker tobacco type: cigarettes Tobacco: How many years used: 26 Electronic Cigarette Use: not used second hand exposure: Yes alcohol intake: current alcohol intake frequency: a few times a week Alcohol type: beer, wine and other substance use type: former substance user and marijuana what type of physical activity do you participate in: walking, bicycling and other details: LEG LIFTS frequency: daily sharon/lutheran: None seatbelt use: always ROS <Dr. Chris Roberts MD - Last Filed: 03/11/24 00:27> ROS ED Constitutional Constitutional ED: Reports chills and sweats; Denies fever(s) Eyes Eyes: Denies change in vision or diplopia ENT ENT ED: Denies rhinorrhea or sore throat Cardiovascular Cardiovascular: Denies chest pain or palpitations Respiratory/Chest Respiratory/Chest: Denies cough or dyspnea Gastrointestinal Gastrointestinal: Reports abdominal pain, melena, nausea and vomiting; Denies diarrhea, hematemesis or hematochezia Genitourinary Genitourinary ED: Denies dysuria or hematuria Musculoskeletal Musculoskeletal: Denies back pain or neck pain Integumentary Denies abscess or rash Neurologic Neurologic: Denies headache(s), paresthesias or weakness Psychiatric Psychiatric: Reports anxiety; Denies suicidal thoughts EXAM <Dr. Chris Roberts MD - Last Filed: 03/11/24 00:27> Physical Exam Const Vital Signs: 03/10/24 21:26 03/10/24 21:36 03/10/24 23:25 Temperature 98 F 98 F Temperature Source Axillary Axillary Pulse Rate 104 H 104 H 102 H Respiratory Rate 25 H 25 H 30 H Blood Pressure 164/90 H 164/90 H 152/81 H Blood Pressure Mean 114 114 104 Blood Pressure Source Monitor Blood Pressure Position Semi-Fowlers Blood Pressure Location Left Arm Pulse Ox 98 98 97 Oxygen Delivery Method Room Air 03/11/24 00:19 Temperature 98.0 F Temperature Source Pulse Rate 100 Respiratory Rate 29 H Blood Pressure 131/88 H Blood Pressure Mean 102 Blood Pressure Source Blood Pressure Position Blood Pressure Location Pulse Ox 99 Oxygen Delivery Method Positive well nourished and well developed General Appearance ED: well developed and NAD HEENT Reports moist mucous membranes normocephalic and atraumatic Eyes PERRL and EOMs intact bilaterally Neck full ROM and supple Resp normal respiratory effort and clear to auscultation bilaterally Cardio regular rate, regular rhythm and no murmurs GI non-distended GI Narrative: Diffusely tender, soft, more tender throughout the upper abdomen. Normal inspection no [place] or [place] signs. No guarding or rebound. Rectal performed with nurse dipper machine operator. No tenderness. Dark green nonmelanotic stool no blood. Hemoccult negative. Auscultation: normoactive bowel sounds Palpation: soft Back/Spine no CVA tenderness Back/Spine Narrative: Normal inspection of back General Back: other FROM Extremity normal to inspection General Extremety ED: Negative for edema, pulses abnormal or tenderness General Extremity: Negative for edema or pulses abnormal Neuro oriented x3, CN's II-XII intact bilaterally and no sensory deficits noted Sensorium / Orientation: awake and alert Motor Exam: strength 5/5 throughout Psych thought process normal Psych Narrative: Anxious and fidgety. Cooperative. Skin no rashes or lesions noted and no wounds <Dr. Oscar Fitzgerald, DO - Last Filed: 03/11/24 00:58> Physical Exam Const Vital Signs: 03/10/24 21:26 03/10/24 21:36 03/10/24 23:25 Temperature 98 F 98 F Temperature Source Axillary Axillary Pulse Rate 104 H 104 H 102 H Respiratory Rate 25 H 25 H 30 H Blood Pressure 164/90 H 164/90 H 152/81 H Blood Pressure Mean 114 114 104 Blood Pressure Source Monitor Blood Pressure Position Semi-Fowlers Blood Pressure Location Left Arm Pulse Ox 98 98 97 Oxygen Delivery Method Room Air 03/11/24 00:19 Temperature 98.0 F Temperature Source Pulse Rate 100 Respiratory Rate 29 H Blood Pressure 131/88 H Blood Pressure Mean 102 Blood Pressure Source Blood Pressure Position Blood Pressure Location Pulse Ox 99 Oxygen Delivery Method [facility] <Dr. Chris Roberts MD - Last Filed: 03/11/24 00:27> [facility] Narrative Medical decision making narrative: Patient appears to be anxious and agitated so she was in alcohol withdrawal, however if history coming from her is accurate, it would be less likely to be alcohol withdrawal if she had no symptoms yesterday 2 days after her last drink but suddenly having symptoms today. Her abdomen is diffusely tender and she is tachycardic. Therefore in performing workup including CT of her abdomen/pelvis and labs, she was given IV fluids, Zofran, morphine, and some Ativan. This did help her symptoms. There was some delay in getting her metabolic panel back, that show significant hyperbilirubinemia, and an anion gap acidosis. Her lactate is not yet back. Her urine ketones are positive and otherwise unremarkable urinalysis. Therefore I added on serum ketones to evaluate for AKA versus sepsis due to intra-abdominal process. She states that other than this past weekend, she has been eating meals normally, making AKA less likely. Biliary etiologies are in the differential but her abdominal pain and tenderness are very diffuse show I think a CT is a more appropriate initial imaging test. Vital signs are stable her tachycardia is improved and she is clinically stable and feeling a little better but still has abdominal discomfort. She has chronic leukopenia, it is possible that she has cirrhosis or is possible she has choledocholithiasis. In addition she had several asymptomatic bouts of narrow complex SVT that would last for less than a minute. At this time she is returning from CT imaging. On my interpretation the CT shows no evidence of free air or bowel obstruction, the gallbladder appears to be distended and the wall may be thickened but I see no radiopaque stones or pericholecystic fluid. Her lactate returned normal and her serum ketones is elevated moderate, more consistent with alcoholic ketoacidosis; started on D5 half-normal and given some more antiemetic. CT results are pending, and she will be checked out at shift change to the night ED physician. Discussed with hospitalist. Lab Data Attestation: I reviewed the patient's lab results. Labs: Laboratory Results - last 24 hr 03/10/24 03/10/24 03/10/24 21:35 21:50 22:16 WBC 4.4 RBC 4.05 L Hgb 13.2 Hct 40.2 MCV 99.3 H MCH 32.6 H MCHC 32.8 RDW Std Deviation 51.6 H RDW Coeff of [place] 14.2 Plt Count 137 L MPV 10.9 Immature Gran % (Auto) 0.500 Neut % (Auto) 87.2 H Lymph % (Auto) 7.3 L [place] % (Auto) 4.1 Eos % (Auto) 0.0 Baso % (Auto) 0.9 Absolute Neuts (auto) 3.8 Absolute Lymphs (auto) 0.32 L Nucleated RBC % 0 PT 16.8 H INR 1.4 Sodium 134 L Potassium 4.0 Chloride 94 L Carbon Dioxide 13.0 L Anion Gap 28 H BUN 9 Creatinine 0.82 Estim Creat Clear Calc 78.47 Est GFR (MDRD) Af Amer 94 Est GFR (MDRD) Non-Af 77 BUN/Creatinine Ratio 11.0 Glucose 173 H Lactic Acid Cancelled Calcium 9.8 Total Bilirubin 4.30 H AST 273 H ALT 121 H Alkaline Phosphatase 115 Total Protein 8.5 H Albumin 4.5 Globulin 4.0 Albumin/Globulin Ratio 1.1 Lipase 16 Urine Color Yellow Urine Clarity Clear Urine pH 6.0 Ur Specific [place] 1.015 Urine Protein 100 H Urine Glucose (UA) Normal Urine Ketones 150 A* Urine Occult Blood 25 H Urine Nitrite Negative Urine Bilirubin Negative Urine Urobilinogen Normal Ur Leukocyte Esterase Negative Urine RBC 0-5 SEEN Urine WBC 0 SEEN Ur Squamous Epith Cells 0-5 SEEN Urine Bacteria 0 SEEN Urine Mucus 0 SEEN Ethyl Alcohol < 3.0 Acetone Level MODERATE H Blood Type A POSITIVE Antibody Screen NEGATIVE 03/10/24 23:34 WBC RBC Hgb Hct MCV MCH MCHC RDW Std Deviation RDW Coeff of [place] Plt Count MPV Immature Gran % (Auto) Neut % (Auto) Lymph % (Auto) [place] % (Auto) Eos % (Auto) Baso % (Auto) Absolute Neuts (auto) Absolute Lymphs (auto) Nucleated RBC % PT INR Sodium Potassium Chloride Carbon Dioxide Anion Gap BUN Creatinine Estim Creat Clear Calc Est GFR (MDRD) Af Amer Est GFR (MDRD) Non-Af BUN/Creatinine Ratio Glucose Lactic Acid 1.9 Calcium Total Bilirubin AST ALT Alkaline Phosphatase Total Protein Albumin Globulin Albumin/Globulin Ratio Lipase Urine Color Urine Clarity Urine pH Ur Specific [place] Urine Protein Urine Glucose (UA) Urine Ketones Urine Occult Blood Urine Nitrite Urine Bilirubin Urine Urobilinogen Ur Leukocyte Esterase Urine RBC Urine WBC Ur Squamous Epith Cells Urine Bacteria Urine Mucus Ethyl Alcohol Acetone Level Blood Type Antibody Screen Radiography Diagnostic Testing: Clinical Impression(s) from Imaging Studies Abdomen/Pelvis CT 03/10/24 22:07 IMPRESSION: Colonic underdistention versus colitis from the transverse through the rectosigmoid colon. Findings consistent with chronic pancreatitis. Electronically Signed: Octavio Washington MD at 0:44 EDT , Rhythm Strip Rhythm Strip: Sinus Tach Rate: 110 Ectopy: None Management Discussion w/another healthcare provider: Hospitalist <Dr. Oscar Fitzgerald, DO - Last Filed: 03/11/24 00:58> [facility] Lab Data Labs: Laboratory Results - last 24 hr 03/10/24 03/10/24 03/10/24 21:35 21:50 22:16 WBC 4.4 RBC 4.05 L Hgb 13.2 Hct 40.2 MCV 99.3 H MCH 32.6 H MCHC 32.8 RDW Std Deviation 51.6 H RDW Coeff of [place] 14.2 Plt Count 137 L MPV 10.9 Immature Gran % (Auto) 0.500 Neut % (Auto) 87.2 H Lymph % (Auto) 7.3 L [place] % (Auto) 4.1 Eos % (Auto) 0.0 Baso % (Auto) 0.9 Absolute Neuts (auto) 3.8 Absolute Lymphs (auto) 0.32 L Nucleated RBC % 0 PT 16.8 H INR 1.4 Sodium 134 L Potassium 4.0 Chloride 94 L Carbon Dioxide 13.0 L Anion Gap 28 H BUN 9 Creatinine 0.82 Estim Creat Clear Calc 78.47 Est GFR (MDRD) Af Amer 94 Est GFR (MDRD) Non-Af 77 BUN/Creatinine Ratio 11.0 Glucose 173 H Lactic Acid Cancelled Calcium 9.8 Total Bilirubin 4.30 H AST 273 H ALT 121 H Alkaline Phosphatase 115 Total Protein 8.5 H Albumin 4.5 Globulin 4.0 Albumin/Globulin Ratio 1.1 Lipase 16 Urine Color Yellow Urine Clarity Clear Urine pH 6.0 Ur Specific [place] 1.015 Urine Protein 100 H Urine Glucose (UA) Normal Urine Ketones 150 A* Urine Occult Blood 25 H Urine Nitrite Negative Urine Bilirubin Negative Urine Urobilinogen Normal Ur Leukocyte Esterase Negative Urine RBC 0-5 SEEN Urine WBC 0 SEEN Ur Squamous Epith Cells 0-5 SEEN Urine Bacteria 0 SEEN Urine Mucus 0 SEEN Ethyl Alcohol < 3.0 Acetone Level MODERATE H Blood Type A POSITIVE Antibody Screen NEGATIVE 03/10/24 23:34 WBC RBC Hgb Hct MCV MCH MCHC RDW Std Deviation RDW Coeff of [place] Plt Count MPV Immature Gran % (Auto) Neut % (Auto) Lymph % (Auto) [place] % (Auto) Eos % (Auto) Baso % (Auto) Absolute Neuts (auto) Absolute Lymphs (auto) Nucleated RBC % PT INR Sodium Potassium Chloride Carbon Dioxide Anion Gap BUN Creatinine Estim Creat Clear Calc Est GFR (MDRD) Af Amer Est GFR (MDRD) Non-Af BUN/Creatinine Ratio Glucose Lactic Acid 1.9 Calcium Total Bilirubin AST ALT Alkaline Phosphatase Total Protein Albumin Globulin Albumin/Globulin Ratio Lipase Urine Color Urine Clarity Urine pH Ur Specific [place] Urine Protein Urine Glucose (UA) Urine Ketones Urine Occult Blood Urine Nitrite Urine Bilirubin Urine Urobilinogen Ur Leukocyte Esterase Urine RBC Urine WBC Ur Squamous Epith Cells Urine Bacteria Urine Mucus Ethyl Alcohol Acetone Level Blood Type Antibody Screen Radiography Diagnostic Testing: Clinical Impression(s) from Imaging Studies Abdomen/Pelvis CT 03/10/24 22:07 IMPRESSION: Colonic underdistention versus colitis from the transverse through the rectosigmoid colon. Findings consistent with chronic pancreatitis. Electronically Signed: Octavio Washington MD at 0:44 EDT , Treatment and Re-Evaluation :: Patient was signed out to me while awaiting her official CT read. The CT scan did not reveal any obvious signs of acute cholecystitis or gallbladder dysfunction. However with her physical exam and laboratory studies suggesting alcoholic ketoacidosis and the fact has been having paroxysmal SVT patient still needs admitted to the hospital. Also as her bilirubin has slightly elevated from previous values there is concern this could be gallbladder dysfunction and therefore might require a ultrasound. Medicine did review the case and agrees with plan of care and will admit the patient at this time for further treatment Discharge Plan Dx/Rx/DC Orders Clinical Impression: Acquired hyperbilirubinemia, Paroxysmal SVT (supraventricular tachycardia), Alcohol abuse, Diffuse abdominal pain, Alcoholic ketoacidosis Disposition Disposition: Acute Care Hospital [facility]
[2024-03-10] MEDS: 0.9% Normal Saline (1000mL) 1,000 ML 999 ML IV (22:17)
[2024-03-10] MEDS: Ondansetron 4 MG/2 ML Vial IV (22:17)
[2024-03-10] MEDS: LORazepam 2 MG/ML Syringe 0.5 MG IV (22:17)
[2024-03-10] MEDS: Morphine 4 MG/ML Syringe IV (22:18)
[2024-03-10 22:32] LABS: Bacteria 0 SEEN /hpf (None Seen); Mucous, Urine 0 SEEN /hpf (<or=2+); White Blood Cells 0 SEEN /hpf (0-5)
[2024-03-10 22:35] LABS: Absolute Lymphocyte Count 0.32 X10^3/uL (0.83-4.51); Absolute Neutrophil Count 3.8 X10^3/uL (2.0-7.7); Basophil# 0.04 X10^3/uL; Basophil% 0.9 % (0-1); Hematocrit 40.2 % (37-47); Hemoglobin 13.2 g/dL (12.0-15.0); Lymphocyte # 0.32 X10^3/ul (0.83-4.51); Lymphocyte % 7.3 % (19-41); Mean Corp Hgb Conc 32.8 g/dL (32-36); Mean Corpuscular Hgb 32.6 pg (27.0-32.0); Mean Corpuscular Volume 99.3 fL (81-99); Mean Platelet Vol. 10.9 fl (6.2-12.0); Monocyte# 0.18 X10^3/uL; Monocyte% 4.1 % (0-10); NRBC Flagged by Analyzer 0 % (0-5); Neutrophil # 3.84 X10^3/uL (2.7-7.7); Neutrophil % 87.2 % (47-70); POSITIVE DIFFERENTIAL YES; Platelet Count 137 K/mm3 (150-450); RBC Distribution Width CV 14.2 % (11.6-14.6); RBC Distribution Width SD 51.6 fl (35.1-43.9); Red Blood Count 4.05 M/mm3 (4.2-5.4); White Blood Count 4.4 K/mm3 (4.4-11.0)
[2024-03-10 22:35] LABS: Color, Urine Yellow (Yellow); Glucose, Dipstick Normal (Normal); Leukocyte Esterase-Dipstick Negative /ul (Negative); Nitrite-Dipstick Negative (Negative); Occult Blood-Urine 25 /ul (Negative); Protein-Dipstick 100 mg/dl (Negative); Specific Gravity, Urine 1.015 (1.002-1.030); Urine Bilirubin Dipstick Negative (Negative); Urine Clarity Clear (Clear); Urine Urobilinogen Normal (Normal)
[2024-03-10 22:45] LABS: Ketone-Dipstick 150 mg/dl (Negative)
[2024-03-10 22:46] LABS: Red Blood Cells-Urine 0-5 SEEN /hpf (0-5); Squamous Epithelial Cells - UA 0-5 SEEN /hpf (5-10)
[2024-03-10 22:47] LABS: International Normalized Ratio 1.4; Prothrombin Time (Protime)PT. 16.8 SECONDS (11.7-14.9)
--- NOTE | 2024-03-10 23:01 | ED.RN ---
MD aware of pt EKG on monitor, no new orders @ this time.
[2024-03-10 23:32] LABS: Alcohol, Blood (Medical)-Serum < 3.0 mg/dL
[2024-03-10 23:52] LABS: ALB/GLOB Ratio 1.1 RATIO (0.9-2.4); AST(SGOT) 273 U/L (15-37); Alanine Aminotransfer ALT/SGPT 121 U/L (13-56); Albumin, Serum 4.5 g/dL (3.2-5.0); Alkaline Phosphatase 115 U/L (45-117); Anion Gap 28 (5-15); BUN 9 mg/dL (7-18); Calcium,Total 9.8 mg/dL (8.5-10.1); Chloride 94 mmol/L (98-107); Creatinine, Serum 0.82 mg/dL (0.55-1.02); EST Glomerular Filtration Rate 77 mL/min (>60); Est Glom Filt Rate - Afr Amer 94 mL/min (>60); Estimated Creatinine Clearance 78.47 ml/min; Glucose 173 mg/dL (74-106); Lipase 16 U/L (13-75); Protein, Total 8.5 g/dL (6.4-8.2); Sodium Level 134 mmol/L (136-145)
[2024-03-11] VITALS (14 sets, daily range): BP systolic 93–166; BP diastolic 58–103; PULSE 96–116; RESP 15–29; TEMP 36.4–36.9; O2SAT 94–100; BMI 26.9
[2024-03-11 00:15] LABS: Lactic Acid 1.9 mmol/L (0.4-1.9)
[2024-03-11] MEDS: Metoclopramide 10 MG/2 ML Vial 5 MG IV (00:35)
[2024-03-11] MEDS: Dext 5%-0.45% NS 1,000 ML 150 ML IV (00:41)
--- NOTE | 2024-03-11 00:59 | HP.PCM.HOS_ITS ---
HPI - General General Date of Admission: 03/11/24 Date of Service: 03/11/24 Chief Complaint: Abdominal pain, N/V. HPI Narrative The patient is a 53 y/o F w/ PMHx: Chronic thrombocytopenia, Anxiety and Depression/Bipolar disorder, Seizure disorder, Chronic migraines, Chronic back pain, Cannabis chronic use, Tobacco use, Chronic anemia/ Fe deficiency anemia, HTN, Allergic rhinitis, EtOH abuse, CAD s/p PCI who presents to the [facility] ED on 03/10/24 with history of onset of diffuse abdominal discomfort as well as nonbloody emesis and nausea ongoing over the last 24 hours with dark stools but no blood evidence on chronic iron supplementation with history of drinking heavily over the weekend with last drink reportedly on Friday with intake of at least 2 bottles of liquor over the weekend normally drinking approximately 0-2 beers sometimes daily but not all the time and given not improving prompted ED evaluation to be cautious. In the ED some concerns about potentially alcohol withdrawal given nausea, emesis, muscle tremors, mild anxiety, restlessness, mild diaphoresis and reported mild disorientation as well as mild headache with CIWA initial score 22. In the ED patient reporting her abdominal discomfort a 10 out of 10 in severity. Upon hospitalist evaluation she notes feeling improved since initial ED arrival and reports pain to her abdomen is generalized, aching and cramping more so right now rating it 2-3 out of 10 in severity. She notes nausea is currently abated. Workup in the ED included T98, heart rate 104, BP 164/90, respiratory rate 25, 98% room air, CBC with WBC 4.4, hemoglobin 13.2, platelet 137 with lymphopenia, coags with PT 16.8 otherwise not marked appearing, CMP with sodium 134, chloride 94, carbon dioxide 18, anion gap 28, glucose 173, T. bili 4.30, AST/ALT 273/121, lipase 16, LA 1.9, urinalysis with specific gravity 1.015, urine protein 100, urine glucose normal, urine ketone 150, occult blood 25, no evidence of urinary tract infection, acetone moderate, ethyl alcohol less than 3, stool guaiac negative, type and screen initiated per ED physician, CT A/P w/ colonic underdistention versus colitis from the transverse through the rectosigmoid colon as well as findings consistent with chronic pancreatitis. In the ED patient ministered Ativan 0.5 mg IV x 1, 1 L normal saline, Zofran 4 mg IV x 1, morphine 4 mg IV x 1, Reglan 5 mg IV x 1, additionally started on dextrose D5 half NS as well as a banana bag. [facility] Medical History Health care maintenance Trochanteric bursitis, right hip Chronic back pain Breast cancer screening Pain in joint involving right pelvic region and thigh Migraine without aura and without status migrainosus, not intractable Wears glasses Cancer Bipolar disorder Depression Anxiety Alcohol use Marijuana use Low iron Easy bruising Injury of back Injury of head and neck Loss of consciousness Syncope Seizures Smoker Leg cramps Cardiology follow-up encounter Hypertension Multiple joint pain Heart valve disease Potassium (K) deficiency Vision problem History of pancreatitis Carpal tunnel syndrome Back problem Arthritis Anemia Seasonal allergies AA (alcohol abuse) UTERINE ABLATION Attempted suicide Difficulty balancing Seizures Diarrhea Hypertension Home Medications ?Medication ?Instructions ?Recorded ?Last Taken ?Type spironolactone 25 mg tablet 25 mg PO DAILY #90 tabs 07/16/22 Unknown Rx escitalopram oxalate 20 mg tablet 20 mg PO DAILY #90 tabs 11/20/23 Unknown Rx lisinopril 5 mg tablet 5 mg PO DAILY #30 tabs 01/06/24 Unknown Rx flurbiprofen 100 mg tablet 100 mg PO TID PRN pain #270 tabs 01/29/24 Unknown Rx zonisamide 100 mg capsule 100 mg .Route .COMPLEX EPILEPSY 01/29/24 Unknown Rx #90 caps Allergy/AdvReac Type Severity Reaction Status Date / Time Penicillins Allergy Other Verified 03/10/24 21:26 bupropion HCl (From AdvReac Depression Verified 03/10/24 21:26 Wellbutrin) Family History Aunt Breast cancer Thyroid disorder Father Cancer Grandfather Cancer Mother Diabetes Hypertension Grandmother Myocardial infarction Heart disease Hypertension Cancer Hypercholesterolemia Other Cerebral aneurysm Surgical History History of endometrial ablation History of tubal ligation S/P skin cancer resection H/O heart artery stent bladder sling History of heart surgery Social History (Updated 03/11/24 @ 01:[address] Raina Palomares MD) Smoking Status: Current every day smoker tobacco type: cigarettes Smoking packs per day: 0.5 Smoking cigarettes per day: 10.0 Tobacco: How many years used: 26 Electronic Cigarette Use: not used second hand exposure: Yes alcohol intake: current alcohol intake frequency: 3 or more drinks per day Alcohol type: beer, wine and other details: Recent heavy hard liquor intake, prior intermittent beer intake, 1- 3/time. substance use type: former substance user and marijuana what type of physical activity do you participate in: walking, bicycling and other details: LEG LIFTS frequency: daily sharon/confucianism: None seatbelt use: always ROS ROS Narrative Admission Review of Systems: CONSTITUTIONAL: No weight loss, fever, chills, + weakness or fatigue. HEENT: Eyes: No visual loss, blurred vision, double vision or yellow sclerae. Ears, Nose, Throat: No hearing loss, sneezing, congestion, runny nose or sore throat. SKIN: No rash or itching, lesions, wounds. CARDIOVASCULAR: No chest pain, chest pressure or chest discomfort, palpitations, edema, orthopnea, syncopal events. RESPIRATORY: No shortness of breath, cough or sputum, wheezing, hemoptysis. GASTROINTESTINAL: + anorexia, nausea, vomiting, abdominal pain. No diarrhea, melena, BRBPR. GENITOURINARY: No dysuria, frequency, urgency or retention. NEUROLOGICAL: + Headache, mildly tremulous, underlying seizure disorder. Dizziness, syncope, paralysis, ataxia, numbness or tingling in the extremities, focal weakness, change in bowel or bladder control. MUSCULOSKELETAL: + muscle, back pain, joint pain or stiffness. HEMATOLOGIC: + Chronic anemia, easy bleeding/bruising. LYMPHATICS: No enlarged nodes. No history of splenectomy. PSYCHIATRIC: + History of anxiety and depression. ENDOCRINOLOGIC: + reports of sweating, cold or heat intolerance. No polyuria or polydipsia. ALLERGIES: No history of asthma, hives, eczema or rhinitis. Vital Signs Vital Signs Vital Signs: 03/10/24 21:26 03/10/24 21:36 03/10/24 23:25 Temperature 98 F 98 F Temperature Source Axillary Axillary Pulse Rate 104 H 104 H 102 H Respiratory Rate 25 H 25 H 30 H Blood Pressure 164/90 H 164/90 H 152/81 H Blood Pressure Mean 114 114 104 Blood Pressure Source Monitor Blood Pressure Position Semi-Fowlers Blood Pressure Location Left Arm Pulse Ox 98 98 97 Oxygen Delivery Method Room Air 03/11/24 00:19 Temperature 98.0 F Temperature Source Pulse Rate 100 Respiratory Rate 29 H Blood Pressure 131/88 H Blood Pressure Mean 102 Blood Pressure Source Blood Pressure Position Blood Pressure Location Pulse Ox 99 Oxygen Delivery Method Weight Weight: 160 lb 7.944 oz Body Mass Index (BMI) 27.5 Physical Exam Narrative Physical Examination: General: Awake, alert, oriented x 3 and cooperative, laying in the ED bed, notes feeling significantly improved since initial ED arrival, abdominal pain now down to 2 out of 10, reporting some lumbar back discomfort secondary to ER bed. Skin: Normal color, normal turgor, no icterus, no cyanosis. HEENT: AT/NC, EOMI, PERRLA, dry MM, no carotid bruits or JVD noted. Lungs: Diminished, greater bases, mildly increased respiratory rate but no distress, no rales, ronchi or wheezing. Heart: Tachycardic with currently regular rhythm; no gallop, rub audible. Abdomen: Soft, mild generalized discomfort but no rebound or guarding, ND, hyperactive BS, no markedly appreciated HSM. Extremities: No cyanosis, clubbing, or edema. Neurological: Patient awake, alert, oriented as noted, cognitive function intact; pupils equally reactive to light and accommodation, cranial nerves grossly normal, moving all 4 extremities, no focal deficits, strength moderately globally decreased secondary to acute complaints. Psychiatric: Affect appears fatigued, no acute evidence of depressive or anxiety feelings but does have underlying history. Results Lab / Micro Data 03/10/24 22:16 03/10/24 22:16 Labs: Laboratory Results - last 24 hr 03/10/24 21:35: Acetone Level MODERATE H 03/10/24 21:50: Urine Color Yellow, Urine Clarity Clear, Urine pH 6.0, Ur Specific [place] 1.015, Urine Protein 100 H, Urine Glucose (UA) Normal, Urine Ketones 150 A*, Urine Occult Blood 25 H, Urine Nitrite Negative, Urine Bilirubin Negative, Urine Urobilinogen Normal, Ur Leukocyte Esterase Negative, Urine RBC 0-5 SEEN, Urine WBC 0 SEEN, Ur Squamous Epith Cells 0-5 SEEN, Urine Bacteria 0 SEEN, Urine Mucus 0 SEEN 03/10/24 22:16: WBC 4.4, RBC 4.05 L, Hgb 13.2, Hct 40.2, MCV 99.3 H, MCH 32.6 H, MCHC 32.8, RDW Std Deviation 51.6 H, RDW Coeff of [place] 14.2, Plt Count 137 L, MPV 10.9, Immature Gran % (Auto) 0.500, Neut % (Auto) 87.2 H, Lymph % (Auto) 7.3 L, [place] % (Auto) 4.1, Eos % (Auto) 0.0, Baso % (Auto) 0.9, Absolute Neuts (auto) 3.8, Absolute Lymphs (auto) 0.32 L, Nucleated RBC % 0, PT 16.8 H, INR 1.4, S odium 134 L, Potassium 4.0, Chloride 94 L, Carbon Dioxide 13.0 L, Anion Gap 28 H , BUN 9, Creatinine 0.82, Estim Creat Clear Calc 78.47, Est GFR (MDRD) Af Amer 94, Est GFR (MDRD) Non-Af 77, BUN/Creatinine Ratio 11.0, Glucose 173 H, Lactic Acid Cancelled, Calcium 9.8, Total Bilirubin 4.30 H, AST 273 H, ALT 121 H, Alkaline Phosphatase 115, Total Protein 8.5 H, Albumin 4.5, Globulin 4.0, Albumin/Globulin Ratio 1.1, Lipase 16, Ethyl Alcohol < 3.0, Blood Type A POSITIVE, Antibody Screen NEGATIVE 03/10/24 23:34: Lactic Acid 1.9 Micro: Microbiology 03/10/24 22:46 Stool Stool Occult Blood (BRITTNEE) - Final Rhythm Strip Rhythm Strip: Sinus Tach Rate: 110 Ectopy: None Imaging Radiology Impression Abdomen/Pelvis CT 03/10/24 22:07 IMPRESSION: Colonic underdistention versus colitis from the transverse through the rectosigmoid colon. Findings consistent with chronic pancreatitis. Electronically Signed: Octavio Washington MD at 0:44 EDT , Assessment & Plan Assessment/Plan (1) Diffuse abdominal pain: PLAN: Plan The patient is a 53 y/o F w/ PMHx: Chronic thrombocytopenia, Anxiety and Depression/Bipolar disorder, Seizure disorder, Chronic migraines, Chronic back pain, Cannabis chronic use, Tobacco use, Chronic anemia/ Fe deficiency anemia, HTN, Allergic rhinitis, EtOH abuse, CAD s/p PCI who presents to the [facility] ED on 03/10/24 with history of onset of diffuse abdominal discomfort as well as nonbloody emesis and nausea ongoing over the last 24 hours with dark stools but no blood evidence on chronic iron supplementation with history of drinking heavily over the weekend with last drink reportedly on Friday with intake of at least 2 bottles of liquor over the weekend normally drinking approximately 0-2 beers sometimes daily but not all the time and given not improving prompted ED evaluation to be cautious. #1. Questionable Acute EtOH Withdrawal with alcohol abuse with acute on chronic transaminitis, alcoholic hepatitis and hyperbilirubinemia: Will admit to PCU given concurrent #5 as noted, will initiate and continue on protocol with taper course of Ativan given significant hyperbilirubinemia and mild transaminitis, will trend CBC and CMP, UDS requested, as needed gabapentin, Catapres, Bentyl, Vistaril, IV fluids, IV antiemetics, Tylenol as needed for pain. Will consult Case management for assistance for transition to next level of rehabilitation care. Mag, phos pending. Maintain on CIWA protocol concurrently. Will request hepatitis panel. Will obtain gallbladder ultrasound. Maintain on PPI IV until N/V improving. Clears until N/V improving. Pending repeat CMP if worsening or not improving, low threshold to involve gastroenterology. #2. Hyperglycemia, suspected related with possibly alcohol withdrawal, stress response with elevated anion gap/elevated acetone suspected secondary to alcoholic ketosis: Admission glucose 173, anion gap elevated 28 however urinalysis with no glucose in the urine, ketones 150, hemoglobin A1c requested to be cautious, acetone moderate. #3. Hyponatremia, hypochloremia, suspected hypovolemic given GI losses: Admission CMP with sodium 134, chloride 94, continue hydration, trend CMP. #4. Questionable colitis from the transverse through the rectosigmoid colon CT scan with no marked findings aside potential colitis: CT abdomen pelvis with colonic underdistention versus colitis from the transverse to the rectosigmoid colon, chronic pancreatitis, no reported evidence of significant diarrhea however if any onset will obtain C. difficile and enteric pathogens to be cautious, procalcitonin requested, continue to evaluate hyperbilirubinemia, transaminitis is noted. Will hold on immediate antibiotic initiation pending procalcitonin and further evaluation. #5. SVT: Notable bursts in the ED of SVT, potentially electrolyte related, continue hydration, magnesium and phosphorus levels requested, supplement as needed, will continue to trend CMP to assure electrolytes improving as likely contributing, cardiac enzymes requested also. #6. Chronic thrombocytopenia, alcohol abuse related: Admission platelet 137, similar to most recent previous, continue to closely trend. #7. Seizure disorder/epilepsy: Following with Dr. Henderson, last noted evaluation 01/29/24, will continue antiepileptic regimen including zonisamide. #8. CAD: Status post PCI 2017 of unclear location, temporarily hold aspirin in case of any intervention needs, not on statin, not on beta-santiago therapy, continue lisinopril regimen, would benefit from follow-up with cardiology. #9. Hypertension: Continue home regimen including lisinopril, spironolactone, PRN hydralazine. #10. Anxiety depression/bipolar disorder: We will continue patient home escitalopram regimen, given this reported history would benefit from consideration of broadening regimen to also include mood stabilizer, encourage continued outpatient follow-up. #11. Chronic migraines: Not on chronic prophylactic regimen, mild headache upon current presentation, will have as needed regimen. #12. Tobacco Abuse: Encouraged cessation, inpatient consultation per RT, NR if desired. #13. Chronic back pain: Encourage frequent positional changes, offloading. #14. Chronic cannabis use: Urine drug screen requested, given nausea/emesis always a concern for cyclic emesis syndrome. #15. Chronic anemia/iron deficiency anemia: Admission CBC with hemoglobin 13.2, MCV 99.3, baseline hemoglobin more commonly 12, not on any current supplementation per review, will repeat CBC in AM. #16. Allergic rhinitis: Per current list does not appear to be on any regimen, noted history previously. #17. SCDs, defer any chemoprophylaxis given thrombocytopenia as well as liver dysfunction noted. Charges/Coding Visit Charges Inpatient E&M: 84690 Init Hosp L3
[2024-03-11] MEDS: Magnesium Sulfate 2 GM in Dextrose 5%-Water (100mL Bag) 100 ML IV (01:05)
[2024-03-11] MEDS: Thiamine Hydrochloride 100 MG in 0.9% Normal Saline (50mL Bag) 50 ML 200 MG IV (01:06)
--- OUTSIDE RECORDS SUMMARY | 2024-03-11 01:11 | XMS RPT_ITS | CCD ---
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 (5 sources) Oxcarbazepine Allergy to substance 02-20-[address] [facility] (5 sources) Penicillins Drug Allergy 09-18-[address] [facility] Medications Current Medications Medication Drug Class(es) Dates [...] Coronary arteriosclerosis; Translations: [Atherosclerotic heart disease of [place] coronary artery without angina pectoris] Onset: 01-07-2024 [...] 03-03-2024 36 Spoke to patient, no questions. [facility] 36on 03-02-2024 36 ----- Message from TAMMY Asif CNP sent at 03/02/2024 6:40 AM EDT ----- Negative Cologuard-recommend rescreening in 3 years. Attempted to call, full. [facility] 36 Medication name: spironolactone (Aldactone) 25 MG [...] prior to picking up the medication: Yes [facility] Office Visiton 02-05-2024 Follow-up visit [id number] Felton Armenta 1970 F Date Provider Department Center 02/05/2024 [id number] TRAYLOR [facility] Family History Problem Relation Age of Onset No Known Problems Mother Cancer Father Comments: testical Family Status - Relation Status Age at Mother Alive Father Level of Service:G0439 NM PPPS, SUBSEQ VISIT Reason for Visit and Comments: Medicare Annual Wellness Visit Initial [276] [facility] PATINSon 02-05-2024 PATINS Please call Central Scheduling at [phone] to schedule your outpatient test Personalized Preventative [...] Recommendations: A preventive eye exam by an financial services specialist is recommended every 1-2 years to screen for glaucoma, cataracts, macular degeneration, and other eye disorders. A preventive dental visit is recommended every 6 months. Try to get at least 150 minutes of exercise per week or 10,000 steps per day on a pedometer. You need 1200-1500mg of calcium and 6253-3344 international units of vitamin D per day. [...] when riding a bicycle or a motorcycle [facility] Progress Noteon 02-05-2024 Progress Note Encouraged cessation. Normal [facility] Progress Note Controlled. Continue Lexapro 20 mg daily [facility] Progress Note Controlled. Blood pressure 111/19, continue lisinopril 5 mg daily and spironolactone 25 mg daily [facility] Progress Note Stable. Managed by neurology [facility] Progress Note Symptoms controlled on Lexapro 20 mg daily [facility] Progress Note 1[facility] [place] Then send 90 to mail order 2 Monik needs to go over labs Patient was identified by name and Date of . Health Maintenance Addressed with Patient at Visit: MMR- declined Pneumo-declined Hep A-declined Zoster-declined Covid-declined Mammo-pended Lung CT- pended Colon- cologaurd Pap-NEEDS AT [facility] (JOIN[facility]) CANDIE faxed to Neuro at [place] [address] [place] [facility] Progress Note [facility] [address] [facility] [address] Dept: [phone] Dept Chief Complaint: Felton Armenta is an [...] with tomosynthesis Annual physical exam Relevant Orders [facility] [employer] Nicotine dependence, cigarettes, uncomplicated Relevant Orders CT [...] Date: 04/06/2025 Cologuard? 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 HENT: Negative. Respiratory: Negative. Cardiovascular: Negative. Gastrointestinal: Negative. Genitourinary: Negative for difficulty urinating and menstrual problem (had ablation in 40s). Musculoskeletal (more content not included)... Normal [facility] 36on 01-12-2024 36 Patient is out [...] prior to picking up the medication: Yes [facility] 36 Message released to patient as written. [...] relayed to the patient from encounter: Yes [facility] 36 ----- Message from TAMMY Asif CNP [...] no answer and vm is full. Normal [facility] 36on 01-08-2024 36 Mailbox full [facility] 36 ----- Message from TAMMY Asif CNP [...] can be found at [email or web address] [facility] Office Visiton 01-07-2024 Follow-up visit [id number] Felton Armenta 1970 F Date Provider Department Center 01/07/2024 [id number] Family History Problem Relation Age of Onset No Known Problems Mother Cancer Father Comments: testical Family Status - Relation Status Age at Mother Alive Father Level of Service:32686 NM OFFICE/OUTPATIENT NEW MODERATE MDM 45 MINUTES Reason for Visit and Comments: New Patient [542] Establish Care [42] - Saw Dr Nichols in [place] Medication Check [[id number]] Health Maintenance [872] - Hiv/hep c screening- refuse Colonoscopy- refuse Mmr vaccine- done as child Hep b vaccine- refuse Pap/izabela- not done in years will sched Normal [facility] Progress Noteon 01-07-2024 Progress Note Remission, continue Lexapro 20 mg daily Normal [facility] Progress Note Controlled, continue lisinopril 5 mg and spironolactone 25 mg. Normal [facility] Progress Note Stable, has had no recent angina Normal [facility] Progress Note Stable, does not remember when her last seizure was currently is not able to drive. Continues on a gram 100 mg daily Normal [facility] Progress Note 01/07/2024 Felton Armenta (: 1970) is a 53 y.o. female , Established patient, here for evaluation of the following chief complaint(s): New Patient, Establish Care (Saw Dr Nichols in [place] ), Medication Check, and Health Maintenance (Hiv/hep [...] metabolic panel 3. Coronary artery disease involving [place] coronary artery of [place] heart without angina pectoris Assessment & Plan: [...] note. Monico Siegel MD 01/07/2024 10:33 AM [facility] Progress Note Patient verified by last name and date of . [facility] 36on 01-06-2024 36 Called to [facility] for appointment with Dr. Siegel on 01/07/24. [...] insurance card and photo ID. Thank you! [facility] 36on 12-23-2023 36 Name of caller: Brandon khan Relation to patient: patient Contact phone number: [phone] Appointment scheduled with: Dr. 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 ( wheel chair, etc) : no Current medications: yes Any refills need: yes Any chronic conditions the provider should be aware of: epilepsy Normal [facility] .Auto Diffon 08-11-2018 Ammonia (P) [Mass/Vol] 0.20 10 3/mcL Normal 0.15-1.00 [facility] Comment on above: Performed By: #### C SERA DAVIS, ANEU #### [place] [address] #### LIP, CMP, GFR #### [address] [address] Basophils (Bld) [#/Vol] 0.00 10 3/mcL Normal 0.00-0.19 [facility] Comment on above: Performed By: #### C SERA DAVIS, ANEU #### [place] [address] #### LIP, CMP, GFR #### [address] [address] Basophils/100 WBC (Bld) 1.0 % Normal 0.0-2.5 [facility] Comment on above: Performed By: #### C BCSERA, ANEU #### [place] [address] #### LIP, CMP, GFR #### [address] [address] Eosinophils (Bld) [#/Vol] 0.00 10 3/mcL Normal 0.00-0.40 [facility] Comment on above: Performed By: #### SERA CLINTON, ANEU #### [place] [address] #### LIP, CMP, GFR #### [address] [address] Eosinophils/100 WBC (Bld) 0.0 % Normal 0.0-7.0 [facility] Comment on above: Performed By: #### C BC, ADIFF, ANEU #### [address] [address] #### LIP, CMP, GFR #### [address] [address] Lymphocytes (Bld) [#/Vol] 0.40 10 3/mcL Low 0.77-3.85 [facility] Comment on above: Performed By: #### C BC, ADIFF, ANEU #### [place] [address] #### LIP, CMP, GFR #### [address] [address] Lymphocytes/100 WBC (Bld) 7.5 % Low 10.0-50.0 [facility] Comment on above: Performed By: #### C BC, ADIFF, ANEU #### [place] [address] #### LIP, CMP, GFR #### [address] [address] Monocytes/100 WBC (Bld) 4.5 % Normal 1.7-13.0 [facility] Comment on above: Performed By: #### C BC, ADIFF, ANEU #### [place] [address] #### LIP, CMP, GFR #### [address] [address] Neutrophils/100 WBC (Bld) 87.0 % High 37.0-80.0 [facility] Comment on above: Performed By: #### C BC, ADIFF, ANEU #### [place] [address] #### LIP, CMP, GFR #### [address] [address] .GFRon 08-11-2018 GFR Non- 90 ml/min/1.73sqm Normal [facility] [place] Comment on above: Result Comment: GFR Population [...] By: #### C BC, ADIFF, ANEU #### [address] [address] #### LIP, CMP, GFR #### [place] [id number] GFR 109 ml/min/1.73sqm Normal [facility] [place] Comment on above: Result Comment: GFR Population [...] By: #### C BC, ADIFF, ANEU #### [address] [address] #### LIP, CMP, GFR #### [address] [address] .NEUABSon 08-11-2018 Neutrophils (Bld) [#/Vol] 4.20 10 3/mcL Normal 2.85-6.16 [facility] [place] Comment on above: Performed By: #### C SERA DAVIS, ANEU #### [place] [address] #### LIP, CMP, GFR #### [place] [address] .Urinalysis Microscopic (AO) on 08-11-2018 RBC (U) [#/Vol] None Seen Normal None Seen [facility] [place] Comment on above: Performed By: #### U A, UAMICAO #### [place] [address] UA Bacteria 4+ /hpf [facility] [place] Comment on above: Performed By: #### U A, UAMICAO #### [place] [address] UA Squam Epithelial 5-10 None Seen [facility] ([place]) Comment on above: Performed By: #### U A, UAMICAO #### [place] [address] UA WBC 0-5 None Seen [facility] [place] Comment on above: Performed By: #### U A, UAMICAO #### [place] [address] CBCon 08-11-2018 Erythrocyte distribution width (RBC) [Ratio] 15.4 % High 11.5-14.5 [facility] [place] Comment on above: Performed By: #### C SERA DAVIS, ANEU #### [place] [address] #### LIP, CMP, GFR #### [place] [address] Hematocrit (Bld) [Volume fraction] 39.9 % Normal 37.0-47.0 [facility] [place] Comment on above: Performed By: #### C SERA DAVIS ANEU #### [place] [address] #### LIP, CMP, GFR #### [address] [address] Hemoglobin (Bld) [Mass/Vol] 13.7 G/dL Normal 12.0-16.0 [facility] [place] Comment on above: Performed By: #### C BC, ADIFF, ANEU #### [place] [address] #### LIP, CMP, GFR #### [place] [address] MCH (RBC) [Entitic mass] 37.5 pg High 27.0-31.2 [facility] Comment on above: Performed By: #### C SUSAN, ADIFF, ANEU #### [place] [address] #### LIP, CMP, GFR #### [place] [address] MCHC (RBC) [Mass/Vol] 34.3 G/dL Normal 33.0-37.0 [facility] Comment on above: Performed By: #### C SUSAN, ADIFF, ANEU #### [place] [address] #### LIP, CMP, GFR #### [place] [address] MCV (RBC) [Entitic vol] 109.5 fL High 80.0-94.0 [facility] [place] Comment on above: Performed By: #### C BC, ADIFF, ANEU #### [place] [address] #### LIP, CMP, GFR #### [place] [address] Platelet mean volume (Bld) [Entitic vol] 7.2 fL Low 7.4-10.4 [facility] [place] Comment on above: Performed By: #### C BC, ADIFF, ANEU #### [place] [address] #### LIP, CMP, GFR #### [address] [address] Platelets (Bld) [#/Vol] 105 10 3/mcL Low 130-400 [facility] [place] Comment on above: Performed By: #### C BC, ADIFF, ANEU #### [address] [address] #### LIP, CMP, GFR #### [address] [address] RBC (Bld) [#/Vol] 3.65 10 6/mcL Low 4.20-5.40 [facility] ([place]) Comment on above: Performed By: #### C BC, ADIFF, ANEU #### [place] [address] #### LIP, CMP, GFR #### [address] [address] WBC (Bld) [#/Vol] 4.80 10 3/mcL Normal 4.60-10.80 [facility] ([place]) Comment on above: Performed By: #### C BC, ADIFF, ANEU #### [place] [address] #### LIP, CMP, GFR #### [address] [address] CMPon 08-11-2018 Albumin [Mass/Vol] 4.3 G/dL Normal 3.5-5.0 [facility] ([place]) Comment on above: Performed By: #### C BC, ADIFF, ANEU #### [place] [address] #### LIP, CMP, GFR #### [address] [address] Albumin/Globulin [Mass ratio] 1.1 {ratio} Normal 1.1-2.5 [facility] [place] Comment on above: Performed By: #### C BC, ADIFF, ANEU #### [place] [address] #### LIP, CMP, GFR #### [address] [address] ALP [Catalytic activity/Vol] 109 U/L Normal 40-135 [facility] [place] Comment on above: Performed By: #### C BC, ADIFF, ANEU #### [address] [address] #### LIP, CMP, GFR #### [address] [address] ALT [Catalytic activity/Vol] 75 U/L High 10-35 [facility] [place] Comment on above: Performed By: #### C BC, ADIFF, ANEU #### [address] [address] #### LIP, CMP, GFR #### [address] [address] AST [Catalytic activity/Vol] 183 U/L High 10-40 [facility] [place] Comment on above: Performed By: #### C BC, ADIFF, ANEU #### [address] [address] #### LIP, CMP, GFR #### [address] [address] Bili Total 2.7 mg/dL High 0.2-1.0 [facility] [place] Comment on above: Performed By: #### C BC, ADIFF, ANEU #### [address] [address] #### LIP, CMP, GFR #### [address] [address] Calcium [Mass/Vol] 9.0 mg/dL Normal 8.4-10.2 [facility] ([place] Comment on above: Performed By: #### C BC, ADIFF, ANEU #### [address] [address] #### LIP, CMP, GFR #### [address] [address] Chloride [Moles/Vol] 93 mmol/L Low 98-107 [facility] ([place]) Comment on above: Performed By: #### C BC, ADIFF, ANEU #### [address] [address] #### LIP, CMP, GFR #### [address] [address] CO2 [Moles/Vol] 24 mmol/L Normal 22-29 [facility] [place] Comment on above: Performed By: #### C BC, ADIFF, ANEU #### [address] [address] #### LIP, CMP, GFR #### [address] [address] Creatinine [Mass/Vol] 0.70 mg/dL Normal 0.55-1.02 [facility] [place] Comment on above: Performed By: #### C BC, ADIFF, ANEU #### [address] [address] #### LIP, CMP, GFR #### [address] [address] Electrolyte Balance 19.0 mEq/L Normal [facility] ([place]) Comment on above: Performed By: #### C BC, ADIFF, ANEU #### [address] [address] #### LIP, CMP, GFR #### [address] [address] Globulin (S) [Mass/Vol] 4.0 G/dL Normal [facility] [place] Comment on above: Performed By: #### C BC, ADIFF, ANEU #### [address] [address] #### LIP, CMP, GFR #### [address] [address] Glucose [Mass/Vol] 148 mg/dL High 70-105 [facility] ([place]) Comment on above: Performed By: #### C BC, ADIFF, ANEU #### [address] [address] #### LIP, CMP, GFR #### [address] [address] Potassium [Moles/Vol] 3.3 mmol/L Low 3.5-5.1 [facility] [place] Comment on above: Performed By: #### C BC, ADIFF, ANEU #### [address] [address] #### LIP, CMP, GFR #### [address] [address] Protein [Mass/Vol] 8.3 G/dL High 6.4-8.2 [facility] ([place]) Comment on above: Performed By: #### C BC, ADIFF, ANEU #### [address] [address] #### LIP, CMP, GFR #### [address] [address] Sodium [Moles/Vol] 136 mmol/L Normal 136-145 [facility] ([place] Comment on above: Performed By: #### C BC, ADIFF, ANEU #### [address] [address] #### LIP, CMP, GFR #### [address] [address] Urea nitrogen [Mass/Vol] 8 mg/dL Normal 7-18 [facility] [place] Comment on above: Performed By: #### C BC, ADIFF, ANEU #### [address] [address] #### LIP, CMP, GFR #### [address] [address] Urea nitrogen/Creatinine [Mass ratio] 11 ratio Normal 7-27 [facility] [place] Comment on above: Performed By: #### C BC, ADIFF, ANEU #### [address] [address] #### LIP, CMP, GFR #### [address] [address] LIPon 08-11-2018 Lipase Level 133 U/L Normal 73-393 [facility] [place] Comment on above: Performed By: #### C BC, ADIFF, ANEU #### [address] [address] #### LIP, CMP, GFR #### [address] [address] UAon 08-11-2018 Color (U) Red [facility] [place] Comment on above: Performed By: #### U A, UAMICAO #### [place] [address] Glucose (U) [Mass/Vol] 100 mg/dL Negative [facility] [place] Comment on above: Performed By: #### U A, UAMICAO #### [place] [address] Ketones Ql (U) >=160 Negative [facility] [place] Comment on above: Performed By: #### U A, UAMICAO #### [place] [address] UA Appear Cloudy Clear [facility] [place] Comment on above: Performed By: #### U A, UAMICAO #### [place] [address] UA Blood Small Negative [facility] [place] Comment on above: Performed By: #### U A, UAMICAO #### [place] [address] UA Leuk Est Negative Normal Negative [facility] [place] Comment on above: Performed By: #### U A, UAMICAO #### [place] [address] UA Nitrite Positive Negative [facility] [place] Comment on above: Performed By: #### U A, UAMICAO #### [place] [address] UA pH 6.5 Normal 5.0 - 8.0 [facility] [place] Comment on above: Performed By: #### U A, UAMICAO #### [place] [address] UA Protein >=300 Negative [facility] Comment on above: Performed By: #### U A, UAMICAO #### [address] [address] UA Spec Grav 1.025 Normal 1.015-1.025 [facility] Comment on above: Performed By: #### U A, UAMICAO #### [address] [address] UA Specimen Type Clean Catch Normal [facility] [place] Comment on above: Performed By: #### U A, UAMICAO #### [address] [address] UA Urobilinogen 2.0 E.U./dL 0.2-1.0 [facility] [place] Comment on above: Performed By: #### U A, UAMICAO #### [place] [address] Urobilinogen Qn (U) Moderate Negative [facility] ([place]) Comment on above: Performed By: #### U A, UAMICAO #### [address] [address] US ABDOMEN LIMITEDon 05-2 019 US ABDOMEN [...] PM Sign Date: 08/11/2018 5:59:02 PM Normal [facility] MAMMOGRAM SCREENING BILAT ERAL W/TOMOon 05-13-2018 MA MAMMOGRAM SCREENING BILATERAL W/REGGIE ORIGINAL FROM: [place] [address] PROCEDURE FOR: FELTON ARMENTA [address] [place] [address] Home: PID#: [id number] Exam#: [id number] : 1970 Age: 48 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 There are scattered fibroglandular elements in both breasts. Current study was also evaluated with a Computer Aided Detection (CAD) system. No significant masses, calcifications, or other findings are seen in either breast. There has been no significant interval change. IMPRESSION: NEGATIVE There is no mammographic evidence of malignancy. A 1 year screening mammogram is recommended.(05/14/20 19) AUBREY ZAMORANO MD ab/penrad:05/14/2018 10:02:40 Cephalometric Analyst(s): KAILA GILL RT(R), [facility] letter sent: Normal BI-RADS 1&2 Mammogram BI-RADS: 1 Negative Normal [facility] BRAIN W/ + W/O CONTRASTo n [...] PM Sign Date: 05/07/2018 4:15:20 PM Normal [facility]) MITOon 02-27-2017 Mitochondrial Ab Neg 20 Normal Neg 20 [facility]) Comment on above: Result Comment: Neg 20 Performed By: #### G FR, CMP, CBC, DIFF, MORPH, ALC, AMM ####[address] [place], [place] [address] SMUSCon 02-27-2017 Smooth Muscle Ab Neg 20 Normal Neg 20 [facility] Comment on above: Result Comment: Neg 20 Performed By: #### G FR, CMP, CBC, DIFF, MORPH, ALC, AMM ####[address] [place], [place] [address] CUSon 02-26-2017 Copper (s) 93 UG/DL Normal 85-155 [facility]) Comment on above: Result Comment: This test was developed and its performance characteristics determined by [facility] [place] ([facility]). It has not been cleared or approved by the FDA. [facility] is regulated under CLIA as qualified to perform high-complexity testing. This test is used for clinical purposes. It should not be regarded as investigational or for research.Performed By:[facility] [place], [place] [address]Dze Director: Shani Magana M.D.[facility]#: [id number]#: Performed By: #### G FR, CMP, CBC, DIFF, MORPH, ALC, AMM ####[address] [place], [place] [address] .Auto Diffon 02-25-2017 Basophils Auto #/vol (Bld) 0.00 10 3/mcL Normal 0.00-0.27 [facility] Comment on above: Performed By: #### G FR, CMP, CBC, DIFF, MORPH, ALC, AMM ####[address] [place], [place] [address] Basophils/100 WBC Auto (Bld) 0.3 % Normal 0.0-2.5 [facility] Comment on above: Performed By: #### G FR, CMP, CBC, DIFF, MORPH, ALC, AMM ####[address] [place], [place] [address] Eosinophils 0.10 10 3/mcL Normal 0.00-0.65 [facility] Comment on above: Performed By: #### G FR, CMP, CBC, DIFF, MORPH, ALC, AMM ####[address] [place], [place] [address] Eosinophils/100 leukocytes 1.5 % Normal 0.0-6.0 [facility] Comment on above: Performed By: #### G FR, CMP, CBC, DIFF, MORPH, ALC, AMM ####[address] [place], [place] [address] Lymphocytes 1.20 10 3/mcL Normal 0.90-4.32 [facility] Comment on above: Performed By: #### G FR, CMP, CBC, DIFF, MORPH, ALC, AMM ####[address] [place], [place] [address] Lymphocytes/100 leukocytes 12.5 % Low 20.0-40.0 [facility] [place] Comment on above: Performed By: #### G FR, CMP, CBC, DIFF, MORPH, ALC, AMM ####[address] [place], [place] [address] Monocytes 0.60 10 3/mcL Normal 0.09-1.40 [facility] [place] Comment on above: Performed By: #### G FR, CMP, CBC, DIFF, MORPH, ALC, AMM ####[address] [place], [place] [address] Monocytes/100 leukocytes 6.5 % Normal 2.0-13.0 [facility] [place] Comment on above: Performed By: #### G FR, CMP, CBC, DIFF, MORPH, ALC, AMM ####[address] [place], [place] [address] Neutrophils/100 WBC Auto (Bld) 79.2 % High 50.0-75.0 [facility] Comment on above: Performed By: #### G FR, CMP, CBC, DIFF, MORPH, ALC, AMM ####[address] [place], [place] [address] .GFRon 02-25-2017 eGFR (non-black) mL/min/{1.73_m2} Normal [facility] Comment on above: Result Comment: GFR Population [...] CBC, DIFF, MORPH, ALC, AMM ####[address] [place], [place] [address] .NEUABSon 02-25-2017 Neutrophils 7.40 10 3/mcL Normal 2.25-8.10 [facility] Comment on above: Performed By: #### G FR, CMP, CBC, DIFF, MORPH, ALC, AMM ####[address] [place], [place] [address] ANAon 02-25-2017 POONAM Titer 40 {titer} Normal Neg 40 [facility] Comment on above: Performed By: #### G FR, CMP, CBC, DIFF, MORPH, ALC, AMM ####[address] [place], [place] [address] BILADon 02-25-2017 Bili Direct 3.4 mg/dL High 0.0-0.4 [facility] Comment on above: Performed By: #### G FR, CMP, CBC, DIFF, MORPH, ALC, AMM ####[address] [place], [place] [address] CBCon 02-25-2017 Erythrocyte distribution width Auto Ratio (RBC) 14.5 % Normal 11.5-15.5 [facility] Comment on above: Performed By: #### G FR, CMP, CBC, DIFF, MORPH, ALC, AMM ####[address] [place], [place] [id number] Erythrocytes (RBC) 2.53 10 6/mcL Low 4.10-5.30 [facility] ([place]) Comment on above: Performed By: #### G FR, CMP, CBC, DIFF, MORPH, ALC, AMM ####[facility] [address] [place], [place] [address] Hematocrit (HCT) 27.5 % Low 34.0-46.0 [facility] ([place]) Comment on above: Performed By: #### G FR, CMP, CBC, DIFF, MORPH, ALC, AMM ####[address] [place], [place] [address] Hemoglobin mass conc (Bld) 9.6 G/dL Low 12.0-16.0 [facility] ([place]) Comment on above: Performed By: #### G FR, CMP, CBC, DIFF, MORPH, ALC, AMM ####[address] [place], [place] [address] MCH 37.7 pg High 27.0-33.0 [facility] ([place]) Comment on above: Performed By: #### G FR, CMP, CBC, DIFF, MORPH, ALC, AMM ####[facility] [address] [place], [place] [address] MCHC mass conc (RBC) 34.7 G/dL Normal 32.0-36.0 [facility] ([place]) Comment on above: Performed By: #### G FR, CMP, CBC, DIFF, MORPH, ALC, AMM ####[address] [place], [place] [address] MCV 108.5 fL High 80.0-99.0 [facility] ([place]) Comment on above: Performed By: #### G FR, CMP, CBC, DIFF, MORPH, ALC, AMM ####[address] [place], [place] [address] Platelet mean volume (PMV) 10.5 fL Normal 6.6-10.5 [facility] ([place]) Comment on above: Performed By: #### G FR, CMP, CBC, DIFF, MORPH, ALC, AMM ####[address] [place], [place] [address] Platelets 102 10 3/mcL Low 150-450 [facility] ([place]) Comment on above: Performed By: #### G FR, CMP, CBC, DIFF, MORPH, ALC, AMM ####[address] [place], [place] [address] WBC (Leukocytes) 9.40 10 3/mcL Normal 4.50-10.80 [facility] ([place]) Comment on above: Performed By: #### G FR, CMP, CBC, DIFF, MORPH, ALC, AMM ####[facility] [place], [place] [address] CMPon 02-25-2017 Calcium 8.0 mg/dL Low 8.4-10.1 [facility] ([place]) Comment on above: Performed By: #### G FR, CMP, CBC, DIFF, MORPH, ALC, AMM ####[address] [place] [address] BUN/Creatinine Ratio 4.8 ratio Low 10.0-22.0 [facility] ([place]) Comment on above: Performed By: #### G FR, CMP, CBC, DIFF, MORPH, ALC, AMM ####[place] [address] [place] [address] Creatinine 0.63 mg/dL Normal 0.50-1.20 [facility] ([place]) Comment on above: Performed By: #### G FR, CMP, CBC, DIFF, MORPH, ALC, AMM ####[place] [address] [place] [address] Alanine aminotransferase (ALT) 120 U/L High 10-49 [facility] ([place]) Comment on above: Performed By: #### G FR, CMP, CBC, DIFF, MORPH, ALC, AMM ####[place] [address] [place] [address] Albumin/Globulin Ratio 0.8 {ratio} Low 0.9-1.6 [facility] ([place]) Comment on above: Performed By: #### G FR, CMP, CBC, DIFF, MORPH, ALC, AMM ####[place] [address] [place] [address] Alk Phos 148 U/L High 38-126 [facility] ([place]) Comment on above: Performed By: #### G FR, CMP, CBC, DIFF, MORPH, ALC, AMM ####[facility] [place] [address] Bili Total 3.9 mg/dL High 0.2-1.2 [facility] ([place]) Comment on above: Performed By: #### G FR, CMP, CBC, DIFF, MORPH, ALC, AMM ####[address] [address] [place], [place] [address] Globulin 2.7 G/dL Normal 1.5-3.8 [facility] ([place]) Comment on above: Performed By: #### G FR, CMP, CBC, DIFF, MORPH, ALC, AMM ####[address] [place], [place] [address] Protein 4.8 G/dL Low 6.0-8.5 [facility] ([place]) Comment on above: Performed By: #### G FR, CMP, CBC, DIFF, MORPH, ALC, AMM ####[address] [place], [place] [address] Albumin 2.1 G/dL Low 3.2-4.8 [facility] ([place]) Comment on above: Performed By: #### G FR, CMP, CBC, DIFF, MORPH, ALC, AMM ####[address] [place], [place] [address] Aspartate aminotransferase (AST) 257 U/L High 8-34 [facility] ([place]) Comment on above: Performed By: #### G FR, CMP, CBC, DIFF, MORPH, ALC, AMM ####[address] [place], [place] [address] Chloride 98 mmol/L Normal 98-110 [facility] ([place]) Comment on above: Performed By: #### G FR, CMP, CBC, DIFF, MORPH, ALC, AMM ####[address] [place], [place] [address] CO2 30 mmol/L Normal 22-32 [facility] ([place]) Comment on above: Performed By: #### G FR, CMP, CBC, DIFF, MORPH, ALC, AMM ####[address] [place], [place] [address] Electrolyte Balance 9.0 mEq/L Normal 4.0-15.0 [facility] ([place]) Comment on above: Performed By: #### G FR, CMP, CBC, DIFF, MORPH, ALC, AMM ####[address] [place], [place] [address] Glucose mass conc 104 mg/dL Normal 70-110 [facility] ([place]) Comment on above: Performed By: #### G FR, CMP, CBC, DIFF, MORPH, ALC, AMM ####[address] [place], [place] [address] Potassium molar conc 4.0 mmol/L Normal 3.5-5.0 [facility] ([place]) Comment on above: Performed By: #### G FR, CMP, CBC, DIFF, MORPH, ALC, AMM ####[address] [place], [place] [address] Sodium 137 mmol/L Normal 136-145 [facility]) Comment on above: Performed By: #### G FR, CMP, CBC, DIFF, MORPH, ALC, AMM ####[address] [place], [place] [address] Urea nitrogen 3.0 mg/dL Low 8.0-22.0 [facility]) Comment on above: Performed By: #### G FR, CMP, CBC, DIFF, MORPH, ALC, AMM ####[address] [place], [place] [address] Depart Summaryon 02-25-2017 Depart Summary Normal [facility]) Discharge Summaryon 02-26-20 17 Discharge Summary Normal [facility]) HEPACon 02-25-2017 Hep A IgM Ab Negative Normal Negative [facility]) Comment on above: Performed By: #### G FR, CMP, CBC, DIFF, MORPH, ALC, AMM ####[address] [place], [place] [address] Hep A IgM Ab Int No serological evidence of a current Hepatitis A infection. Normal [facility] ([place]) Comment on above: Performed By: #### G FR, CMP, CBC, DIFF, MORPH, ALC, AMM ####[address] [place], [place] [address] Hep B Core IgM Ab Negative Normal Negative [facility] ([place]) Comment on above: Result Comment: No s erological evidence of ACUTE Hepatitis B infection. Performed By: #### G FR, CMP, CBC, DIFF, MORPH, ALC, AMM ####[address] [place], [place] [address] Hep B Surf Ag Negative Normal Negative [facility] ([place]) Comment on above: Performed By: #### G FR, CMP, CBC, DIFF, MORPH, ALC, AMM ####[address] [place], [place] [address] Hep C Ab Negative Normal Negative [facility] ([place]) Comment on above: Performed By: #### G FR, CMP, CBC, DIFF, MORPH, ALC, AMM ####[address] [place], [place] [address] Hep C Ab Int No serological evidence of Hepatitis C infection, although levels of anti-HCV may be undetectable in early infection. Normal [facility] ([place]) Comment on above: Performed By: #### G FR, CMP, CBC, DIFF, MORPH, ALC, AMM ####[address] [place], [place] [address] Inpatient Patient Summaryon 02-25-2017 Inpatient Patient Summary Normal [facility] ([place]) Internal Medicine Progress N oteon 02-25-2017 Internal Medicine Progress Note Normal [facility] ([place]) UAon 02-25-2017 UA Appear Clear Normal Clear [facility] ([place]) Comment on above: Performed By: #### G FR, CMP, CBC, DIFF, MORPH, ALC, AMM ####[address] [place], [place] [address] UA Blood Negative Normal Neg-Trace [facility] ([place]) Comment on above: Performed By: #### G FR, CMP, CBC, DIFF, MORPH, ALC, AMM ####[address] [place], [place] [address] UA Leuk Est Trace Normal Negative [facility] ([place]) Comment on above: Performed By: #### G FR, CMP, CBC, DIFF, MORPH, ALC, AMM ####[address] [place], [place] [address] UA Nitrite Negative Normal Negative [facility] ([place]) Comment on above: Performed By: #### G FR, CMP, CBC, DIFF, MORPH, ALC, AMM ####[address] [place], [place] [address] UA pH 8.0 Normal 5.0 - 8.0 [facility] ([place]) Comment on above: Performed By: #### G FR, CMP, CBC, DIFF, MORPH, ALC, AMM ####[address] [place], [place] [address] UA Protein Negative Normal Negative [facility] ([place]) Comment on above: Performed By: #### G FR, CMP, CBC, DIFF, MORPH, ALC, AMM ####[place] [address] [place], [place] [address] UA Spec Grav 1.010 Normal 1.006-1.029 [facility] ([place]) Comment on above: Performed By: #### G FR, CMP, CBC, DIFF, MORPH, ALC, AMM ####[place] [address] [place], [place] [address] UA Specimen Type Clean Catch Normal [facility] ([place]) Comment on above: Performed By: #### G FR, CMP, CBC, DIFF, MORPH, ALC, AMM ####[address] [address] [place], [place] [address] UA Urobilinogen 1.0 E.U./dL Normal 0.2-1.0 [facility] ([place]) Comment on above: Performed By: #### G FR, CMP, CBC, DIFF, MORPH, ALC, AMM ####[address] [place], [place] [address] Urine, color Dark Yellow Normal [facility] ([place]) Comment on above: Performed By: #### G FR, CMP, CBC, DIFF, MORPH, ALC, AMM ####[address] [place], [place] [address] Urine, glucose 100 mg/dL Abnormal Negative [facility] ([place]) Comment on above: Performed By: #### G FR, CMP, CBC, DIFF, MORPH, ALC, AMM ####[address] [place], [place] [address] Urine, ketones presence Negative Normal Neg-Trace [facility] ([place]) Comment on above: Performed By: #### G FR, CMP, CBC, DIFF, MORPH, ALC, AMM ####[address] [place], [place] [address] Urine, urobilinogen Moderate Abnormal Neg-Trace [facility] ([place]) Comment on above: Performed By: #### G FR, CMP, CBC, DIFF, MORPH, ALC, AMM ####[address] [place], [place] [address] .Auto Diffon 02-24-2017 Basophils Auto #/vol (Bld) 0.00 10 3/mcL Normal 0.00-0.27 [facility] ([place]) Comment on above: Performed By: #### T OXSC, UA, UAMICAO ####[address] [place], [place] [address] Basophils/100 WBC Auto (Bld) 0.2 % Normal 0.0-2.5 [facility] ([place]) Comment on above: Performed By: #### T OXSC, UA, UAMICAO ####[address] [place], [place] [address] Eosinophils 0.10 10 3/mcL Normal 0.00-0.65 [facility] ([place]) Comment on above: Performed By: #### T OXSC, UA, UAMICAO ####[address] [address] [place], [place] [address] Eosinophils/100 leukocytes 1.6 % Normal 0.0-6.0 [facility] ([place]) Comment on above: Performed By: #### T OXSC, UA, UAMICAO ####[address] [place], [place] [address] Lymphocytes 0.60 10 3/mcL Low 0.90-4.32 [facility] ([place]) Comment on above: Performed By: #### T OXSC, UA, UAMICAO ####[address] [place], [place] [address] Lymphocytes/100 leukocytes 7.6 % Low 20.0-40.0 [facility] ([place]) Comment on above: Performed By: #### T OXSC, UA, UAMICAO ####[address] [place], [place] [address] Monocytes 0.70 10 3/mcL Normal 0.09-1.40 [facility] ([place]) Comment on above: Performed By: #### T OXSC, UA, UAMICAO ####[address] [place], [place] [address] Monocytes/100 leukocytes 9.0 % Normal 2.0-13.0 [facility] ([place]) Comment on above: Performed By: #### Zack OXSC, UA, UAMICAO ####[address] [place], [place] [address] Neutrophils/100 WBC Auto (Bld) 81.6 % High 50.0-75.0 [facility] ([place]) Comment on above: Performed By: #### Zack OXSC, UA, UAMICAO ####[facility] [address] [place], [place] [address] .GFRon 02-24-2017 eGFR (non-black) mL/min/{1.73_m2} Normal [facility]) Comment on above: Result Comment: GFR Population [...] #### T OXSC, UA, UAMICAO ####[address] [place], [place] [address] .NEUABSon 02-24-2017 Neutrophils 6.20 10 3/mcL Normal 2.25-8.10 [facility] ([place]) Comment on above: Performed By: #### Zack OXSC, UA, UAMICAO ####[address] [place], [place] [address] CBCon 02-24-2017 Erythrocyte distribution width Auto Ratio (RBC) 14.2 % Normal 11.5-15.5 [facility] ([place]) Comment on above: Performed By: #### T OXSC, UA, UAMICAO ####[address] [place], [place] [address] Erythrocytes (RBC) 2.53 10 6/mcL Low 4.10-5.30 [facility] ([place]) Comment on above: Performed By: #### T OXSC, UA, UAMICAO ####[address] [place], [place] [address] Hematocrit (HCT) 27.8 % Low 34.0-46.0 [facility] ([place]) Comment on above: Performed By: #### T OXSC, UA, UAMICAO ####[address] [place], [place] [address] Hemoglobin mass conc (Bld) 9.5 G/dL Low 12.0-16.0 [facility] ([place]) Comment on above: Performed By: #### T OXSC, UA, UAMICAO ####[address] [place], [place] [address] MCH 37.4 pg High 27.0-33.0 [facility] ([place]) Comment on above: Performed By: #### T OXSC, UA, UAMICAO ####[address] [place], [place] [address] MCHC mass conc (RBC) 34.1 G/dL Normal 32.0-36.0 [facility] ([place]) Comment on above: Performed By: #### T OXSC, UA, UAMICAO ####[address] [place], [place] [address] MCV 109.8 fL High 80.0-99.0 [facility] ([place]) Comment on above: Performed By: #### T OXSC, UA, UAMICAO ####[address] [place], [place] [address] Platelet mean volume (PMV) 10.1 fL Normal 6.6-10.5 [facility] ([place]) Comment on above: Performed By: #### T OXSC, UA, UAMICAO ####[address] [place], [place] [address] Platelets 65 10 3/mcL Low 150-450 [facility] ([place]) Comment on above: Performed By: #### T OXSC, UA, UAMICAO ####[address] [place], [place] [address] WBC (Leukocytes) 7.60 10 3/mcL Normal 4.50-10.80 [facility] ([place]) Comment on above: Performed By: #### T OXSC, UA, UAMICAO ####[address] [place], [place] [address] CMPon 02-24-2017 Albumin/Globulin Ratio 0.8 {ratio} Low 0.9-1.6 [facility] ([place]) Comment on above: Performed By: #### T OXSC, UA, UAMICAO ####[address] [place], [place] [address] Alk Phos 127 U/L High 38-126 [facility] ([place]) Comment on above: Performed By: #### T OXSC, UA, UAMICAO ####[address] [place], [place] [address] Bili Total 3.0 mg/dL High 0.2-1.2 [facility] ([place]) Comment on above: Performed By: #### T OXSC, UA, UAMICAO ####[address] [place], [place] [address] Globulin 2.5 G/dL Normal 1.5-3.8 [facility] ([place]) Comment on above: Performed By: #### T OXSC, UA, UAMICAO ####[address] [address] [place], [place] [address] Potassium molar conc 2.2 mmol/L Critically abnormal 3.5-5.0 [facility] ([place]) Comment on above: Performed By: #### T OXSC, UA, UAMICAO ####[address] [place], [place] [address] Protein 4.6 G/dL Low 6.0-8.5 [facility] ([place]) Comment on above: Performed By: #### T OXSC, UA, UAMICAO ####[place] [address] [place], [place] [address] Alanine aminotransferase (ALT) 118 U/L High 10-49 [facility] ([place]) Comment on above: Performed By: #### T OXSC, UA, UAMICAO ####[place] [address] [place], [place] [address] Albumin 2.1 G/dL Low 3.2-4.8 [facility] ([place]) Comment on above: Performed By: #### T OXSC, UA, UAMICAO ####[address] [place], [place] [address] Aspartate aminotransferase (AST) 371 U/L High 8-34 [facility] ([place]) Comment on above: Performed By: #### T OXSC, UA, UAMICAO ####[address] [address] [place], [place] [address] BUN/Creatinine Ratio 12.9 ratio Normal 10.0-22.0 [facility] ([place]) Comment on above: Performed By: #### T OXSC, UA, UAMICAO ####[address] [address] [place], [place] [address] Calcium 7.2 mg/dL Low 8.4-10.1 [facility] ([place]) Comment on above: Performed By: #### T OXSC, UA, UAMICAO ####[place] [address] [place], [place] [address] Chloride 98 mmol/L Normal 98-110 [facility] ([place]) Comment on above: Performed By: #### T OXSC, UA, UAMICAO ####[address] [address] [place], [place] [address] CO2 29 mmol/L Normal 22-32 [facility] ([place]) Comment on above: Performed By: #### T OXSC, UA, UAMICAO ####[address] [place], [place] [address] Creatinine 0.70 mg/dL Normal 0.50-1.20 [facility] ([place]) Comment on above: Performed By: #### T OXSC, UA, UAMICAO ####[facility] [address] [place], [place] [address] Electrolyte Balance 11.0 mEq/L Normal 4.0-15.0 [facility] ([place]) Comment on above: Performed By: #### T OXSC, UA, UAMICAO ####[address] [place], [place] [address] Glucose mass conc 112 mg/dL High 70-110 [facility] ([place]) Comment on above: Performed By: #### T OXSC, UA, UAMICAO ####[address] [place], [place] [address] Sodium 138 mmol/L Normal 136-145 [facility] ([place]) Comment on above: Performed By: #### T OXSC, UA, UAMICAO ####[address] [place], [place] [address] Urea nitrogen 9.0 mg/dL Normal 8.0-22.0 [facility] ([place]) Comment on above: Performed By: #### T OXSC, UA, UAMICAO ####[address] [place], [place] [address] Rakesh 02-24-2017 Potassium molar conc 3.3 mmol/L Low 3.5-5.0 [facility] ([place]) Comment on above: Performed By: #### G FR, CMP, CBC, DIFF, MORPH, ALC, AMM ####[address] [place], [place] [address] MGon 02-24-2017 Magnesium 1.6 mg/dL Normal 1.6-2.4 [facility] ([place]) Comment on above: Performed By: #### G FR, CMP, CBC, DIFF, MORPH, ALC, AMM ####[address] [place], [place] [address] .Auto Diffon 02-23-2017 Basophils Auto #/vol (Bld) 0.00 10 3/mcL Normal 0.00-0.27 [facility] ([place]) Comment on above: Performed By: #### T OXSC, UA, UAMICAO ####[address] [place], [place] [address] Basophils/100 WBC Auto (Bld) 0.2 % Normal 0.0-2.5 [facility] ([place]) Comment on above: Performed By: #### T OXSC, UA, UAMICAO ####[address] [place], [place] [address] Eosinophils 0.00 10 3/mcL Normal 0.00-0.65 [facility] ([place]) Comment on above: Performed By: #### T OXSC, UA, UAMICAO ####[address] [place], [place] [address] Eosinophils/100 leukocytes 0.5 % Normal 0.0-6.0 [facility] ([place]) Comment on above: Performed By: #### T OXSC, UA, UAMICAO ####[address] [place], [place] [address] Lymphocytes 0.60 10 3/mcL Low 0.90-4.32 [facility] ([place]) Comment on above: Performed By: #### T OXSC, UA, UAMICAO ####[address] [place], [place] [address] Lymphocytes/100 leukocytes 7.6 % Low 20.0-40.0 [facility] ([place]) Comment on above: Performed By: #### T OXSC, UA, UAMICAO ####[address] [place], [place] [address] Monocytes 0.70 10 3/mcL Normal 0.09-1.40 [facility] ([place]) Comment on above: Performed By: #### T OXSC, UA, UAMICAO ####[address] [place], [place] [address] Monocytes/100 leukocytes 8.7 % Normal 2.0-13.0 [facility] ([place]) Comment on above: Performed By: #### T OXSC, UA, UAMICAO ####[facility] [address] [place], [place] [address] Neutrophils/100 WBC Auto (Bld) 83.0 % High 50.0-75.0 [facility] ([place]) Comment on above: Performed By: #### T OXSC, UA, UAMICAO ####[place] [address] [place], [place] [address] .GFRon 02-23-2017 eGFR (non-black) 55 ml/min/1.73sqm Normal [facility] ([place]) Comment on above: Result Comment: GFR Population [...] #### T OXSC, UA, UAMICAO ####[address] [place], [place] [address] eGFR (non-black) mL/min/{1.73_m2} Normal [facility] [place]) Comment on above: Result Comment: GFR Population [...] #### T OXSC, UA, UAMICAO ####[address] [place], [place] [address] .Morphon 02-23-2017 Anisocytosis presence Slight Normal [facility] ([place]) Comment on above: Performed By: #### T OXSC, UA, UAMICAO ####[address] [address] [place] [address] Hypochrom Slight Normal [facility] ([place]) Comment on above: Performed By: #### T OXSC, UA, UAMICAO ####[place] [address] [place] [address] Macrocytosis Slight Normal [facility] ([place]) Comment on above: Performed By: #### T OXSC, UA, UAMICAO ####[place] [address] [place] [address] Platelets Grt Decreased Normal [facility] ([place]) Comment on above: Performed By: #### T OXSC, UA, UAMICAO ####[place] [address] [place] [address] Poik Slight Normal [facility] ([place]) Comment on above: Performed By: #### T OXSC, UA, UAMICAO ####[place] [address] [place] [address] Stomatocytes Few [facility] ([place]) Comment on above: Performed By: #### T OXSC, UA, UAMICAO ####[place] [address] [place] [address] Target Cell Few [facility] ([place]) Comment on above: Performed By: #### T OXSC, UA, UAMICAO ####[place] [address] [place] [address] .NEUABSon 02-23-2017 Neutrophils 6.20 10 3/mcL Normal 2.25-8.10 [facility] ([place]) Comment on above: Performed By: #### T OXSC, UA, UAMICAO ####[address] [place], [place] [address] Glo 02-23-2017 Ammonia see comment Normal [facility] ([place]) Comment on above: Result Comment: See separate report Performed By: #### G FR, CMP, CBC, DIFF, MORPH, ALC, AMM ####[address] [place], [place] [address] B12on 02-23-2017 Cobalamins (Vitamin B12) 1637 pg/mL High 211-911 [facility] ([place]) Comment on above: Performed By: #### T OXSC, UA, UAMICAO ####[address] [place], [place] [address] BMPon 02-23-2017 Potassium molar conc 2.0 mmol/L Critically abnormal 3.5-5.0 [facility] ([place]) Comment on above: Performed By: #### T OXSC, UA, UAMICAO ####[address] [place], [place] [address] BUN/Creatinine Ratio 26.2 ratio High 10.0-22.0 [facility] ([place]) Comment on above: Performed By: #### T OXSC, UA, UAMICAO ####[address] [place], [place] [address] Calcium 7.7 mg/dL Low 8.4-10.1 [facility] ([place]) Comment on above: Performed By: #### T OXSC, UA, UAMICAO ####[address] [place], [place] [address] Chloride 91 mmol/L Low 98-110 [facility] ([place]) Comment on above: Performed By: #### T OXSC, UA, UAMICAO ####[address] [place], [place] [address] CO2 29 mmol/L Normal 22-32 [facility] ([place]) Comment on above: Performed By: #### T OXSC, UA, UAMICAO ####[address] [place], [place] [address] Creatinine 1.07 mg/dL Normal 0.50-1.20 [facility] ([place]) Comment on above: Performed By: #### T OXSC, UA, UAMICAO ####[address] [place], [place] [address] Electrolyte Balance 14.0 mEq/L Normal 4.0-15.0 [facility] ([place]) Comment on above: Performed By: #### T OXSC, UA, UAMICAO ####[address] [place], [place] [address] Glucose mass conc 74 mg/dL Normal 70-110 [facility] ([place]) Comment on above: Performed By: #### T OXSC, UA, UAMICAO ####[address] [place], [place] [address] Sodium 134 mmol/L Low 136-145 [facility] ([place]) Comment on above: Performed By: #### T OXSC, UA, UAMICAO ####[address] [place], [place] [address] Urea nitrogen 28.0 mg/dL High 8.0-22.0 [facility] ([place]) Comment on above: Performed By: #### T OXSC, UA, UAMICAO ####[address] [place], [place] [address] CBCon 02-23-2017 Erythrocyte distribution width Auto Ratio (RBC) 14.4 % Normal 11.5-15.5 [facility] ([place]) Comment on above: Performed By: #### T OXSC, UA, UAMICAO ####[address] [place], [place] [address] Erythrocytes (RBC) 2.84 10 6/mcL Low 4.10-5.30 [facility] ([place]) Comment on above: Performed By: #### T OXSC, UA, UAMICAO ####[address] [place], [place] [address] Hematocrit (HCT) 30.8 % Low 34.0-46.0 [facility] ([place]) Comment on above: Performed By: #### T OXSC, UA, UAMICAO ####[address] [place], [place] [address] Hemoglobin mass conc (Bld) 10.8 G/dL Low 12.0-16.0 [facility] ([place]) Comment on above: Performed By: #### T OXSC, UA, UAMICAO ####[address] [place], [place] [address] MCH 38.1 pg High 27.0-33.0 [facility] ([place]) Comment on above: Performed By: #### T OXSC, UA, UAMICAO ####[address] [place], [place] [address] MCHC mass conc (RBC) 35.2 G/dL Normal 32.0-36.0 [facility] ([place]) Comment on above: Performed By: #### T OXSC, UA, UAMICAO ####[address] [place], [place] [address] MCV 108.1 fL High 80.0-99.0 [facility] ([place]) Comment on above: Performed By: #### T OXSC, UA, UAMICAO ####[address] [place], [place] [address] Platelet mean volume (PMV) 10.9 fL High 6.6-10.5 [facility] ([place]) Comment on above: Performed By: #### T OXSC, UA, UAMICAO ####[address] [place], [place] [address] Platelets 45 10 3/mcL Low 150-450 [facility] ([place]) Comment on above: Performed By: #### T OXSC, UA, UAMICAO ####[address] [place], [place] [address] WBC (Leukocytes) 7.50 10 3/mcL Normal 4.50-10.80 [facility] ([place]) Comment on above: Performed By: #### T OXSC, UA, UAMICAO ####[address] [place], [place] [address] CT ABDOMEN W/ CONTRASTon CT ABDOMEN W/ [...] PM Sign Date: 02/23/2017 8:14:41 PM [facility] ([place]) FOLon 02-23-2017 Folate 13.6 ng/mL Normal 1.1-20.0 [facility] ([place]) Comment on above: Performed By: #### T OXSC, UA, UAMICAO ####[address] [place], [place] [address] History and Physicalon 02-23 History and Physical Normal [facility] ([place]) Rakesh 02-23-2017 Potassium molar conc 3.0 mmol/L Low 3.5-5.0 [facility] ([place]) Comment on above: Performed By: #### T OXSC, UA, UAMICAO ####[address] [place], [place] [address] MGon 02-23-2017 Magnesium 2.2 mg/dL Normal 1.6-2.4 [facility] ([place]) Comment on above: Result Comment: Spec imen slightly hemolyzed. Results may be falsely elevated. Performed By: #### T OXSC, UA, UAMICAO ####[address] [place], [place] [address] [facility] on 02-23-2017 [facility] ([place]) .GFRon 02-22-2017 eGFR (non-black) 26 ml/min/1.73sqm Normal [facility] ([place]) Comment on above: Result Comment: GFR Population [...] CBC, DIFF, MORPH, ALC, AMM ####[address] [place], [place] [address] eGFR (non-black) 32 ml/min/1.73sqm Normal [facility] ([place]) Comment on above: Result Comment: GFR Population [...] CMP, CBC, DIFF, MORPH, ALC, AMM ####[address] [place], [place] [address] .Manual Diffon 02-22-2017 Bands 26.0 % High 0.0-5.0 [facility] ([place]) Comment on above: Performed By: #### G FR, CMP, CBC, DIFF, MORPH, ALC, AMM ####[address] [place], [place] [address] Basophil %, Manual 0.0 % Normal 0.0-2.5 [facility] ([place]) Comment on above: Performed By: #### G FR, CMP, CBC, DIFF, MORPH, ALC, AMM ####[address] [place], [place] [address] Basophil, Abs Manual 0.00 10 3/mcL Normal 0.00-0.19 [facility] ([place]) Comment on above: Performed By: #### G FR, CMP, CBC, DIFF, MORPH, ALC, AMM ####[address] [place], [place] [address] Eosinophil, Abs Manual 0.00 10 3/mcL Normal 0.00-0.40 [facility] ([place]) Comment on above: Performed By: #### G FR, CMP, CBC, DIFF, MORPH, ALC, AMM ####[address] [place], [place] [address] Lymphocyte %, Manual 5.0 % Low 10.0-50.0 [facility] ([place]) Comment on above: Performed By: #### G FR, CMP, CBC, DIFF, MORPH, ALC, AMM ####[address] [place], [place] [address] Lymphocyte, Abs Manual 0.60 10 3/mcL Low 0.77-3.85 [facility] ([place]) Comment on above: Performed By: #### G FR, CMP, CBC, DIFF, MORPH, ALC, AMM ####[address] [place], [place] [address] Metamyelocytes/100 leukocytes 3.0 % Normal [facility] ([place]) Comment on above: Performed By: #### G FR, CMP, CBC, DIFF, MORPH, ALC, AMM ####[address] [place], [place] [address] Monocyte %, Manual 8.0 % Normal 1.7-13.0 [facility] ([place]) Comment on above: Result Comment: 0.0 Performed By: #### G FR, CMP, CBC, DIFF, MORPH, ALC, AMM ####[address] [place], [place] [address] Monocyte, Abs Manual 1.00 10 3/mcL Normal 0.15-1.00 [facility] ([place]) Comment on above: Performed By: #### G FR, CMP, CBC, DIFF, MORPH, ALC, AMM ####[address] [place], [place] [address] Neutrophil %, Manual 58.0 % Normal 37.0-80.0 [facility] ([place]) Comment on above: Performed By: #### G FR, CMP, CBC, DIFF, MORPH, ALC, AMM ####[address] [place], [place] [address] Neutrophil, Abs Manual 7.80 10 3/mcL High 2.85-6.16 [facility] ([place]) Comment on above: Performed By: #### G FR, CMP, CBC, DIFF, MORPH, ALC, AMM ####[address] [place], [place] [address] .Morphon 02-22-2017 Macrocytosis Moderate [facility] ([place]) Comment on above: Performed By: #### G FR, CMP, CBC, DIFF, MORPH, ALC, AMM ####[address] [place], [place] [address] Platelets Grt Decreased Normal [facility] ([place]) Comment on above: Performed By: #### G FR, CMP, CBC, DIFF, MORPH, ALC, AMM ####[address] [place], [place] [address] Stomatocytes Several Normal [facility] ([place]) Comment on above: Performed By: #### G FR, CMP, CBC, DIFF, MORPH, ALC, AMM ####[address] [place], [place] [address] Toxic Gran Slight Normal [facility] ([place]) Comment on above: Performed By: #### G FR, CMP, CBC, DIFF, MORPH, ALC, AMM ####[address] [place], [place] [address] .Urinalysis Microscopic (AO) on 02-22-2017 UA Bacteria 4+ /hpf Abnormal [facility] ([place]) Comment on above: Performed By: #### T OXSC, UA, UAMICAO ####[address] [place], [place] [address] UA Squam Epithelial 5-10 Abnormal None Seen [facility] ([place]) Comment on above: Performed By: #### T OXSC, UA, UAMICAO ####[address] [place] [address] UA WBC LOADED Abnormal None Seen [facility] ([place]) Comment on above: Performed By: #### T OXSC, UA, UAMICAO ####[address] [place] [address] Urine, erythrocytes 5-10 Abnormal None Seen [facility] ([place]) Comment on above: Performed By: #### T OXSC, UA, UAMICAO ####[address] [place] [address] Yousif 02-22-2017 Ethanol Level <10 Normal [facility] ([place]) Comment on above: Performed By: #### G FR, CMP, CBC, DIFF, MORPH, ALC, AMM ####[address] [place], [place] [address] CBCon 02-22-2017 Erythrocyte distribution width Auto Ratio (RBC) 14.3 % Normal 11.5-14.5 [facility] ([place]) Comment on above: Performed By: #### G FR, CMP, CBC, DIFF, MORPH, ALC, AMM ####[address] [place] [address] Erythrocytes (RBC) 2.85 10 6/mcL Low 4.20-5.40 [facility] ([place]) Comment on above: Performed By: #### G FR, CMP, CBC, DIFF, MORPH, ALC, AMM ####[address] [place] [address] Hematocrit (HCT) 30.4 % Low 37.0-47.0 [facility] ([place]) Comment on above: Performed By: #### G FR, CMP, CBC, DIFF, MORPH, ALC, AMM ####[address] [place] [address] Hemoglobin mass conc (Bld) 10.7 G/dL Low 12.0-16.0 [facility] ([place]) Comment on above: Performed By: #### G FR, CMP, CBC, DIFF, MORPH, ALC, AMM ####[address] [place] [address] MCH 37.5 pg High 27.0-31.2 [facility] ([place]) Comment on above: Performed By: #### G FR, CMP, CBC, DIFF, MORPH, ALC, AMM ####[address] [place] [address] MCHC mass conc (RBC) 35.1 G/dL Normal 33.0-37.0 [facility] ([place]) Comment on above: Performed By: #### G FR, CMP, CBC, DIFF, MORPH, ALC, AMM ####[address] [place] [address] MCV 106.7 fL High 80.0-94.0 [facility] ([place]) Comment on above: Performed By: #### G FR, CMP, CBC, DIFF, MORPH, ALC, AMM ####[address] [place] [address] Platelet mean volume (PMV) 11.3 fL High 7.4-10.4 [facility] ([place]) Comment on above: Performed By: #### G FR, CMP, CBC, DIFF, MORPH, ALC, AMM ####[address] [place] [address] Platelets 44 10 3/mcL Low 130-400 [facility] ([place]) Comment on above: Performed By: #### G FR, CMP, CBC, DIFF, MORPH, ALC, AMM ####[address] [place] [address] WBC (Leukocytes) 9.30 10 3/mcL Normal 4.60-10.80 [facility] ([place]) Comment on above: Performed By: #### G FR, CMP, CBC, DIFF, MORPH, ALC, AMM ####[address] [place], [place] [address] CMPon 02-22-2017 Aspartate aminotransferase (AST) 183 U/L High 10-40 [facility] ([place]) Comment on above: Performed By: #### G FR, CMP, CBC, DIFF, MORPH, ALC, AMM ####[address] [place], [place] [address] Alanine aminotransferase (ALT) 46 U/L High 10-35 [facility] ([place]) Comment on above: Performed By: #### G FR, CMP, CBC, DIFF, MORPH, ALC, AMM ####[address] [place], [place] [address] Albumin 3.4 G/dL Low 3.5-5.0 [facility] ([place]) Comment on above: Performed By: #### G FR, CMP, CBC, DIFF, MORPH, ALC, AMM ####[address] [place], [place] [address] Albumin/Globulin Ratio 1.4 {ratio} Normal 1.1-2.5 [facility] ([place]) Comment on above: Performed By: #### G FR, CMP, CBC, DIFF, MORPH, ALC, AMM ####[address] [place], [place] [address] Alk Phos 104 IU/L Normal 40-135 [facility] ([place]) Comment on above: Performed By: #### G FR, CMP, CBC, DIFF, MORPH, ALC, AMM ####[address] [place], [place] [address] Bili Total 6.3 mg/dL High 0.2-1.0 [facility] ([place]) Comment on above: Performed By: #### G FR, CMP, CBC, DIFF, MORPH, ALC, AMM ####[address] [place], [place] [address] BUN/Creatinine Ratio 16 ratio Normal 7-27 [facility] ([place]) Comment on above: Performed By: #### G FR, CMP, CBC, DIFF, MORPH, ALC, AMM ####[address] [place], [place] [address] Calcium 8.2 mg/dL Low 8.4-10.2 [facility] ([place]) Comment on above: Performed By: #### G FR, CMP, CBC, DIFF, MORPH, ALC, AMM ####[address] [place], [place] [address] Chloride 82 mmol/L Low 98-107 [facility] ([place]) Comment on above: Performed By: #### G FR, CMP, CBC, DIFF, MORPH, ALC, AMM ####[address] [place], [place] [address] CO2 29 mmol/L Normal 22-29 [facility] ([place]) Comment on above: Performed By: #### G FR, CMP, CBC, DIFF, MORPH, ALC, AMM ####[address] [place], [place] [address] Creatinine 2.0 mg/dL High 0.6-1.2 [facility] ([place]) Comment on above: Performed By: #### G FR, CMP, CBC, DIFF, MORPH, ALC, AMM ####[address] [place], [place] [address] Electrolyte Balance 12.0 mEq/L Normal [facility] ([place]) Comment on above: Performed By: #### G FR, CMP, CBC, DIFF, MORPH, ALC, AMM ####[address] [place], [place] [address] Globulin 2.5 G/dL Normal [facility] ([place]) Comment on above: Performed By: #### G FR, CMP, CBC, DIFF, MORPH, ALC, AMM ####[address] [place], [place] [address] Glucose mass conc 123 mg/dL High 70-105 [facility] ([place]) Comment on above: Performed By: #### G FR, CMP, CBC, DIFF, MORPH, ALC, AMM ####[address] [place], [place] [address] Potassium molar conc 2.1 mmol/L Critically abnormal 3.5-5.1 [facility] ([place]) Comment on above: Performed By: #### G FR, CMP, CBC, DIFF, MORPH, ALC, AMM ####[address] [place], [place] [address] Protein 5.9 G/dL Low 6.0-8.3 [facility] ([place]) Comment on above: Performed By: #### G FR, CMP, CBC, DIFF, MORPH, ALC, AMM ####[address] [place], [place] [address] Sodium 123 mmol/L Low 136-146 [facility] ([place]) Comment on above: Performed By: #### G FR, CMP, CBC, DIFF, MORPH, ALC, AMM ####[address] [place], [place] [address] Urea nitrogen 31.6 mg/dL High 7.0-18.0 [facility] ([place]) Comment on above: Performed By: #### G FR, CMP, CBC, DIFF, MORPH, ALC, AMM ####[address] [place], [place] [address] CT HEAD OR BRAIN W/O CONTRAS Ton [...] PM Sign Date: 02/22/2017 4:06:17 PM [facility] ([place]) TOXSCon 02-22-2017 QC TOXSC Valid [facility] ([place]) Comment on above: Performed By: #### T OXSC, UA, UAMICAO ####[address] [place], [place] [address] U Ampheta (AO) Negative [facility] ([place]) Comment on above: Performed By: #### T OXSC, UA, UAMICAO ####[address] [place], [place] [address] U Roxanne (AO) Negative [facility] ([place]) Comment on above: Performed By: #### T OXSC, UA, UAMICAO ####[address] [place], [place] [address] U Rafael (AO) Negative [facility] ([place]) Comment on above: Performed By: #### T OXSC, UA, UAMICAO ####[address] [place], [place] [address] U Cannab (AO) Negative [facility] ([place]) Comment on above: Performed By: #### T OXSC, UA, UAMICAO ####[address] [place], [place] [address] U Cocaine (AO) Negative [facility] ([place]) Comment on above: Performed By: #### T OXSC, UA, UAMICAO ####[address] [place], [place] [address] U Methadone (AO) Negative [facility] ([place]) Comment on above: Performed By: #### T OXSC, UA, UAMICAO ####[address] [place], [place] [address] U PCP (AO) Negative [facility] ([place]) Comment on above: Performed By: #### T OXSC, UA, UAMICAO ####[address] [place], [place] [address] U TCA (AO) Negative [facility] ([place]) Comment on above: Performed By: #### T OXSC, UA, UAMICAO ####[address] [place], [place] [address] Urine Opiates (AO) Negative [facility] (MS) Comment on above: Performed By: #### T OXSC, UA, UAMICAO ####[address] [place], [place] [address] UAon 02-22-2017 UA Appear CLOUDY [facility] ([place]) Comment on above: Performed By: #### T OXSC, UA, UAMICAO ####[address] [place], [place] [address] UA Blood LARGE [facility] ([place]) Comment on above: Performed By: #### T OXSC, UA, UAMICAO ####[address] [place], [place] [address] UA Leuk Est MODERATE [facility] ([place]) Comment on above: Performed By: #### T OXSC, UA, UAMICAO ####[address] [place], [place] [address] UA Nitrite Positive [facility] (MS) Comment on above: Performed By: #### T OXSC, UA, UAMICAO ####[address] [place], [place] [address] UA pH 5.0 [facility] ([place]) Comment on above: Performed By: #### T OXSC, UA, UAMICAO ####[address] [place], [place] [address] UA Protein 100 mg/dL Abnormal Negative [facility] ([place]) Comment on above: Performed By: #### T OXSC, UA, UAMICAO ####[address] [place] [address] UA Spec Grav 1.025 Normal [facility] ([place]) Comment on above: Performed By: #### T OXSC, UA, UAMICAO ####[address] [place], [place] [address] UA Specimen Type Void Normal [facility] ([place]) Comment on above: Performed By: #### T OXSC, UA, UAMICAO ####[address] [place], [place] [address] UA Urobilinogen 4.0 E.U./dL Abnormal [facility] ([place]) Comment on above: Performed By: #### T OXSC, UA, UAMICAO ####[address] [place], [place] [address] Urine, color ORANGE Normal [facility] ([place]) Comment on above: Performed By: #### T OXSC, UA, UAMICAO ####[address] [place], [place] [address] Urine, glucose Negative Normal [facility] ([place]) Comment on above: Performed By: #### T OXSC, UA, UAMICAO ####[address] [place], [place] [address] Urine, ketones presence TRACE Normal [facility] ([place]) Comment on above: Performed By: #### T OXSC, UA, UAMICAO ####[address] [place], [place] [address] Urine, urobilinogen MODERATE Normal [facility] ([place]) Comment on above: Performed By: #### T OXSC, UA, UAMICAO ####[address] [place], [place] [address] XR CHEST 1 VIEWon 02-22-2017 XR CHEST [...] PM Sign Date: 02/22/2017 4:25:08 PM [facility] ([place]) Vital Signs Date Time Vital Sign Value Performing Clinician Trace singh 02-05-2024 09:45-0400 Body height 161.3 cm Lakia Bridenthal TOP INSTALLER - HV[employer] SALES REPRESENTATIVE Work Phone: [employer] 02-05-2024 09:45-0400 Body mass index (BMI) [Ratio] 29.54 kg/m2 Lakia Bridenthal TOP INSTALLER - HV[employer] SALES REPRESENTATIVE Work Phone: [employer] 02-05-2024 09:45-0400 Body temperature 98.29 [degF] Lakia Bridenthal TOP INSTALLER - HVAC SALES REPRESENTATIVE Work Phone: [employer] 02-05-2024 09:45-0400 Body weight 76.84 kg Lakia Bridenthal TOP INSTALLER - HVAC SALES REPRESENTATIVE Work Phone: [employer] 02-05-2024 09:45-0400 Diastolic blood pressure 79 mm[Hg] Lakia Bridenthal TOP INSTALLER - HVAC SALES REPRESENTATIVE Work Phone: [employer] 02-05-2024 09:45-0400 Heart rate 84 /min Lakia Bridenthal TOP INSTALLER - HVAC SALES REPRESENTATIVE Work Phone: [employer] 02-05-2024 09:45-0400 Respiratory rate 18 /min Lakia Bridenthal TOP INSTALLER - HVAC SALES REPRESENTATIVE Work Phone: [employer] 02-05-2024 09:45-0400 SaO2% (BldA) [Mass fraction] 97 % Lakia Bridenthal TOP INSTALLER - HVAC SALES REPRESENTATIVE Work Phone: [employer] 02-05-2024 09:45-0400 Systolic blood pressure 111 mm[Hg] Lakia Bridenthal TOP INSTALLER - HVAC SALES REPRESENTATIVE Work Phone: [facility] [employer] 01-07-2024 08:56-0400 Body height 161.3 cm Monico Siegel MD Work Phone: [facility] [employer] 01-07-2024 08:56-0400 Body mass index (BMI) [Ratio] 30.9 kg/m2 Monico Siegel MD Work Phone: [facility] [employer] 01-07-2024 08:56-0400 Body weight 80.38 kg Monico Siegel MD Work Phone: [employer] 01-07-2024 08:56-0400 Diastolic blood pressure 84 mm[Hg] Monico Siegel MD Work Phone: [facility] [employer] 01-07-2024 08:56-0400 Heart rate 88 /min Monico Siegel MD Work Phone: [facility] [employer] 01-07-2024 08:56-0400 SaO2% (BldA) [Mass fraction] 97 % Monico Siegel MD Work Phone: [facility] [employer] 01-07-2024 08:56-0400 Systolic blood pressure 134 mm[Hg] Monico Siegel MD Work Phone: [facility] [employer] Encounters Encounter Date Encounter Type Care Provider Facility Start: 03-02-2024 End: 03-02-2024 Refill Monico Siegel MD Work Phone: [facility] Comment on above: Primary hypertension Start: 02-05-2024 End: 02-05-2024 Assay of hemosiderin, quant Lakia Mckeonmelissa TOP INSTALLER - HVAC SALES REPRESENTATIVE Work Phone: [employer] Start: 02-05-2024 End: 02-05-2024 Patient encounter procedure Lakia Mckeonyonasjerome TOP INSTALLER - HVAC SALES REPRESENTATIVE Work Phone: [facility] Comment on above: Colon cancer screeni ng (Primary Dx); Tobacco dependence; Encounter for screening mammogram for malignant neoplasm of breast; Primary hypertension; Anxiety; Annual physical exam; Nicotine dependence, cigarettes, uncomplicated; Routine general medical examination at health care facility; Seizure disorder (CMS/HCC) (HCC) Start: 02-05-2024 End: 02-05-2024 ambulatory [facility] Start: 02-05-2024 End: 02-05-2024 Encounter for general adult medical examination without abnormal findings [facility] Start: 01-12-2024 End: 01-12-2024 Refill Monico Siegel MD Work Phone: [facility] Start: 01-08-2024 End: 01-12-2024 Telephone encounter Monico Siegel MD Work Phone: [facility] Comment on above: Results; Release of Information Start: 01-07-2024 End: 01-07-2024 Office outpatient new 45 minutes Monico Siegel MD Work Phone: [facility] Comment on above: Seizure disorder (CM S/HCC) (HCC) (Primary Dx); Primary hypertension; Coronary artery disease involving [place] coronary artery of [place] heart without angina pectoris; Anxiety; Screening for diabetes mellitus; Screening for deficiency anemia Start: 01-07-2024 End: 01-07-2024 ambulatory MONICO SIEGEL [facility] Start: 12-23-2023 End: 12-23-2023 Telephone encounter Monico Siegel MD Work Phone: [facility] Comment on above: New Patient Start: 02-22-2017 [...] or older (1 - 1-dose 60+ series) [facility] Start: 02-10-2029 DTaP/Tdap/Td Vaccine s (2 - Td or Tdap) DTaP/Tdap/Td Vaccines (2 - Td or Tdap) [facility] Start: 01-06-2029 Lipid panel Lipid Panel [facility] Start: 02-23-2027 Screening for malign ant neoplasm of colon [facility] Start: 03-06-2025 Medicare Annual Well ness (AWV) Medicare Annual Wellness (AWV) [facility] Start: 02-04-2025 Pneumococcal Vaccine : Pediatrics (0 to 5 Years) and At-Risk Patients (6 to 64 Years) (1 of 2 - PCV) Pneumococcal Vaccine: Pediatrics (0 to 5 Years) and At-Risk Patients (6 to 64 Years) (1 of 2 - PCV) [facility] Comment on above: Postponed from 03/15 (Patient Refused) Start: 01-06-2025 Depression Screening Depression Scre ening [facility] Start: 01-06-2025 Hepatitis B Vaccines (1 of 3 - 19+ 3-dose series) Hepatitis B Vaccines (1 of 3 - 19+ 3-dose series) [facility] Comment on above: Postponed from 03/15 (Patient Refused) Start: 01-06-2025 HIV screening HIV Screening [facility] Comment on above: Postponed from 03/15 (Patient Refused) Start: 07-09-2024 Depression Monitoring Depression Mon itoring [facility] Start: 05-04-2024 End: 05-04-[address] [facility] Start: 03-07-2024 End: 04-06-2025 DBT Breast - bilateral screening Bilateral screening mammogram with tomosynthesis Imaging Routine Encounter for screening mammogram for malignant neoplasm of breast Expected: 03/07/2024, Expires: 04/06/2025 [facility] Comment on above: Expected: 03/07/2024 , Expires: 04/06/2025 Start: 02-08-2024 Influenza vaccination Influenza Vacc ine (#1) [facility] Start: 02-05-2024 End: 02-04-2025 CT Chest for screening WO contrast CT lung screening low dose Imaging Routine Tobacco dependence Nicotine dependence, cigarettes, uncomplicated Expected: 02/05/2024, Expires: 02/04/2025 [facility] Comment on above: Expected: 02/05/2024 , Expires: 02/04/2025 Start: 02-05-2024 End: 02-05-2024 Patient encounter procedure 02/05/2024 9:40 AM EDT Office Visit [facility] [address] [place], [place] [id number] Lakia Traylor, TOP INSTALLER - HVAC SALES REPRESENTATIVE [address] [facility] [place] [address] [facility] Start: 01-07-2024 End: 01-06-2025 CBC panel - Blood by Automated count CBC Lab Routine Screening for deficiency anemia Expected: 01/07/2024 (Approximate), Expires: 01/06/2025 [facility] Comment on above: Expected: 01/07/2024 (Approximate), Expires: 01/06/2025 Start: 01-07-2024 End: 01-06-2025 Comprehensive metabolic 1998 panel - Serum or Plasma Comprehensive metabolic panel Lab Routine Seizure disorder (CMS/HCC) (HCC) Primary hypertension Expected: 01/07/2024 (Approximate), Expires: 01/06/2025 [facility] Work Phone: Comment on above: Expected: 01/07/2024 (Approximate), Expires: 01/06/2025 Start: 01-07-2024 End: 01-06-2025 Lipid 1996 panel - Serum or Plasma Lipid panel Lab Routine Coronary artery disease involving [place] coronary artery of [place] heart without angina pectoris Expected: 01/07/2024 (Approximate), Expires: 01/06/2025 [facility] Comment on above: Expected: 01/07/2024 (Approximate), Expires: 01/06/2025 Start: 01-07-2024 End: 01-07-2024 Patient encounter procedure 01/07/2024 9:00 AM EDT Office Visit [facility] [place] [address] Monico Siegel MD [address] [place] [address] [place] [address] [facility] Start: 10-08-2023 Screening for malign ant neoplasm of breast Mammogram [facility] Start: 02-07-2023 COVID-19 Vaccine ( season) COVID-[address] () [facility] Start: 2021 Screening for malign ant neoplasm of lung Lung Cancer Screening [facility] Start: 2021 Zoster Vaccines (1 of 2) Zoster Vacc veronique (1 of 2) [facility] Start: 2011 Screening for malign ant neoplasm of breast Mammogram [facility] Start: 2001 Screening for malign ant neoplasm of cervix [facility] Start: 1992 Screening for malign ant neoplasm of cervix Pap Smear [facility] Start: 1990 Hepatitis A Vaccines (1 of 2 - Risk 2-dose series) Hepatitis A Vaccines (1 of 2 - Risk 2-dose series) [facility] Start: 1990 Hepatitis B Vaccines (1 of 3 - 19+ 3-dose series) Hepatitis B Vaccines (1 of 3 - 19+ 3-dose series) [facility] Start: 1989 Diabetes mellitus screening Diabetes Screening [facility] Start: 1989 Hepatitis C screening Hepatitis C Sc reening [facility] Start: 1983 Depression Screening Depression Scre ening [facility] Start: 1977 Pneumococcal Vaccine : Pediatrics (0 to 5 Years) and At-Risk Patients (6 to 64 Years) (1 of 2 - PCV) Pneumococcal Vaccine: Pediatrics (0 to 5 Years) and At-Risk Patients (6 to 64 Years) (1 of 2 - PCV) [facility] Start: 1972 MMR Vaccines (1 of 1 - Standard series) MMR Vaccines (1 of 1 - Standard series) [facility] Start: 1971 HIV screening HIV Screening [facility]: 1971 Lipid panel Lipid Panel [facility] Start: 1971 Medicare Annual Well ness (AWV) Medicare Annual Wellness (AWV) [facility] Start: 1971 Screening for malign ant neoplasm of colon [facility] Cologuard colon canc er screening Cologuard colon cancer screening Lab Routine Colon cancer screening Ordered: 02/05/2024 [facility] Work Phone: Comment on above: Ordered: 02/05/2024 Immunizations Immunization Date Immunization Notes Care Provider Fa cility 02-10-2019 tetanus toxoid, redu jitendra diphtheria toxoid, and acellular pertussis vaccine, adsorbed Lakia Bridenthal TOP INSTALLER - HVAC SALES REPRESENTATIVE Work Phone: [facility] 03-09-2008 influenza, seasonal, injectable Lakia Bridenthal TOP INSTALLER - HVAC SALES REPRESENTATIVE Work Phone: [facility] 03-09-2008 influenza, seasonal, injectable, preservative free Lakia Bridenthal TOP INSTALLER - HVAC SALES REPRESENTATIVE Work Phone: [facility] 03-09-2008 influenza virus vacc ine, unspecified formulation Monico Siegel MD Work Phone: 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 Start: 1971 Sex assigned at Not on file [facility] Start: 01-07-2024 End: 02-05-2024 Gender identity Not on file [facility] Start: 06-09-1993 Tobacco smoking status WAIS Smokes t obacco daily [facility] Start: 06-09-1993 History of tobacco use Cigarette Smo ker [facility] Start: 01-07-2024 End: 02-05-2024 Cigarettes smoked current (pack per day) - Reported 0.7 [facility] Start: 01-07-2024 Tobacco use and exposure Smokeless t obacco non-user [facility] Start: 01-07-2024 End: 02-05-2024 Alcoholic beverage intake Current drinker of alcohol (finding) [facility] Adolescent depressio n screening assessment 3 [facility] Start: 02-05-2024 Alcohol Comment occasional [facility] Clinical Notes 12-23-2023 to 03-02-2024 Telephone Encounter [...] prior to picking up the medication: Yes [facility] 03-02-2024 Miscellaneous Notes Formattin g of this [...] the medication: Yes documented in this encounter [facility] 02-05-2024 Evaluation + Plan note Associ ated Problem(s): Tobacco dependence Encouraged cessation. [facility] 02-05-2024 Evaluation + Plan note Associ ated Problem(s): Anxiety Controlled. Continue Lexapro [address] [facility] 02-05-2024 Miscellaneous Notes Associate d Problem(s): Tobacco dependence Encouraged cessation. Associated Problem(s): Anxiety Controlled. Continue Lexapro 20 mg daily Associated Problem(s): Hypertension Controlled. Blood pressure 111/19, continue lisinopril 5 mg daily and spironolactone 25 mg daily Associated Problem(s): Seizure disorder (CMS/HCC) (HCC) Stable. Managed by neurology Associated Problem(s): Mixed anxiety depressive disorder Symptoms controlled on Lexapro 20 mg daily documented in this encounter [facility] 02-05-2024 Evaluation + Plan note Associ ated Problem(s): Hypertension Controlled. Blood pressure 111/19, continue lisinopril 5 mg daily and spironolactone [address] [facility] 02-05-2024 Evaluation + Plan note Associ ated Problem(s): Seizure disorder (CMS/HCC) (HCC) Stable. Managed by neurology [facility] 02-05-2024 Evaluation + Plan note Associ ated Problem(s): Mixed anxiety depressive disorder Symptoms controlled on Lexapro [address] [facility] 02-05-2024 History of Presen t illness Narrative 1) 30 day supply to [facility] in [place] Then send 90 to mail order 2 Monik needs to go over labs Patient was identified by name and Date of . Health Maintenance Addressed with Patient at Visit: MMR- declined Pneumo-declined Hep A-declined Zoster-declined Covid-declined Mammo-pended Lung CT- pended Colon- cologaurd Pap-NEEDS AT [facility] ([facility]) CANDIE faxed to Neuro at [place] Dr. Henderson Images from the original note were not included. [facility] MEDICINE [address] [facility] [address] [facility] [id number] Dept: [phone] Dept Chief Complaint: Felton Armenta is an [...] with tomosynthesis Annual physical exam Relevant Orders [facility] [employer] SALES REPRESENTATIVE Nicotine dependence, cigarettes, uncomplicated Relevant Orders CT [...] Date: 04/06/2025 Cologuard colon cancer screening [facility] [employer]UFACTUR[employer] SALES REPRESENTATIVE Standing Status: Future Standing Expiration Date: 08/06/2024 [...] week. Encouraged cessation documented in this encounter [facility] 02-05-2024 Instructions TAMMY Asif CNP - 02/05/2024 9:40 AM EDT Please call Central Scheduling at [phone] to schedule your outpatient test Personalized Preventative [...] Recommendations: A preventive eye exam by an financial services specialist is recommended every 1-2 years to screen for glaucoma, cataracts, macular degeneration, and other eye disorders. A preventive dental visit is recommended every 6 months. Try to get at least 150 minutes of exercise per week or 10,000 steps per day on a pedometer. You need 1200-1500mg of calcium and 1988-2331 international units of vitamin D per day. [...] be sent through Care Everywhere.High Potassium Diet (Kosovan)documented in this encounter [facility] 01-12-2024 Telephone encounter Note Form atting of [...] prior to picking up the medication: Yes [facility] 01-12-2024 Miscellaneous Notes Formattin g of this [...] the medication: Yes documented in this encounter [facility] 01-12-2024 Telephone encounter Note Form atting of [...] relayed to the patient from encounter: Yes [facility] 01-12-2024 Miscellaneous Notes Formattin g of this [...] at [email or web address] documented in this encounter [facility] 01-12-2024 Telephone encounter Note Form atting of [...] pt, no answer and vm is full. [facility] 01-08-2024 Telephone encounter Note Form atting of this note might be different from the original. Mailbox full T [facility] 01-08-2024 Telephone encounter Note Form atting of [...] can be found at [email or web address] T [facility] 01-07-2024 Evaluation + Plan note Associ ated Problem(s): Anxiety Remission, continue Lexapro 20 mg daily [facility] 01-07-2024 Evaluation + Plan note Associ ated Problem(s): Hypertension Controlled, continue lisinopril 5 mg and spironolactone [address] [facility] 01-07-2024 Miscellaneous Notes Associate d Problem(s): Anxiety Remission, continue Lexapro 20 mg daily Associated Problem(s): Hypertension Controlled, continue lisinopril 5 mg and spironolactone 25 mg. Associated Problem(s): Coronary artery disease involving [place] coronary artery of [place] heart without angina pectoris Owen, has had no recent angina Associated Problem(s): Seizure disorder (CMS/HCC) (HCC) Owen, does not remember when her last seizure was currently is not able to drive. Continues on a gram 100 mg daily documented in this encounter [facility] 01-07-2024 Evaluation + Plan note Associ ated Problem(s): Coronary artery disease involving [place] coronary artery of [place] heart without angina pectoris Owen, has had no recent angina [facility] 01-07-2024 Evaluation + Plan note Associ ated Problem(s): Seizure disorder (CMS/HCC) (HCC) Owen, does not remember when her last seizure was currently is not able to drive. Continues on a gram [address] [facility] 01-07-2024 History of Presen t illness Narrative Patient verified by last name and date of . Images from the original note were not included. 01/07/2024 Felton Armenta (: 1970) is a 53 y.o. female , Established patient, here for evaluation of the following chief complaint(s): New Patient, Establish Care (Saw Dr Nichols in [place] ), Medication Check, and Health Maintenance (Hiv/hep [...] metabolic panel 3. Coronary artery disease involving kaguy[place] coronary artery of [place] heart without angina pectoris Assessment & Plan: [...] 01/07/2024 10:33 AM documented in this encounter [facility] 12-23-2023 Telephone encounter Note Form atting of this note might be different from the original. Name of caller: Felton Relation to patient: patient Contact phone number: [phone] Appointment scheduled with: Dr. 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 ( wheel chair, etc) : no Current medications: yes Any refills need: yes Any chronic conditions the provider should be aware of: epilepsy [facility] 12-23-2023 Miscellaneous Notes Formattin g of this note might be different from the original. Name of caller: Felton Relation to patient: patient Contact phone number: [phone] Appointment scheduled with: Dr. 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 ( wheel chair, etc) : no Current medications: yes Any refills need: yes Any chronic conditions the provider should be aware of: epilepsy documented in this encounter [facility] Evaluation note Diagnosis Seizure disorder (CMS/HCC) (HCC)- Primary Unspecified epilepsy without mention of intractable epilepsy Primary hypertension Unspecified essential hypertension Coronary artery disease involving k[place] coronary artery of [place] heart without angina pectoris Anxiety Anxiety state, unspecified Screening for diabetes mellitus Screening for deficiency anemia Screening for other and unspecified deficiency anemia [facility] Diagnosis Colon cancer screening- Primary [...] of intractable epilepsy [facility] Diagnosis Primary hypertension Unspecified essential hypertension [facility] Consultation (Routine) - Pending Review Specialty Diagnoses / Procedures Referred By Tony ramon Referred To Contact Obstetrics and Gynecology Diagnoses Annual physical exam Procedures NM OFFICE/OUTPATIENT [facility] 60 MINUTES Lakia Traylor APRN - HVAC SALES REPRESENTATIVE [address] [place] [address] [facility] Aide [address] [place] [address] Referral ID Status Reason Start Date Expiration Date Visits Requested Visits Authorized [id number] Pending Review Specialty Services Required 02/05/2024 02/04/2025 1 1 * Imaging (Routine) - Pending Review Specialty Diagnoses / Procedures Referred By Tony ramon Referred To Contact Radiology Diagnoses Tobacco dependence Nicotine dependence, cigarettes, uncomplicated Procedures CT lung screening low dose Lakia Traylor APRN - CNP [address] [facility] [place] [address] [place] [address] Referral ID Status Reason Start Date Expiration Date V isits Requested Visits Authorized [id number] Pending Review 02/05/2024 02/04/2025 1 1 [facility] [employer] Summary Purpose Family History No Family History Records FoundNo Family History Records FoundNo Family History Records FoundNo Family History Records Found Advance Directives No Advanced Directives Records FoundNo Advanced Directives Records FoundNo Advanced Directives Records FoundNo Advanced Directives Records Found Additional Source Comments INFORMATION SOURCE (unrecogn ized section and content) DATE CREATED AUTHOR 12/03/2017 [employer] ([place]) DATE CREATED AUTHOR AUTHOR'S ORGANIZ ATION 12/03/2017 [employer] DATE CREATED AUTHOR AUTHOR'S ORGANIZ ATION 03/21/2019 [employer] ([place]) DATE CREATED AUTHOR AUTHOR'S ORGANIZ ATION 03/04/2024 [facility] Reason for Visit (unrecogniz [...] Care Teams (unrecognized sec tion and content) Grouter Helper Relationship Specialty Start Date End Date Monico Siegel MD [address] [place] [address] PCP - General Family Medicine 01/07/24 Grouter Helper Relationship Specialty Start Date End Date Monico Siegel MD [address] [place] [address] PCP - General Family Medicine 01/07/24 Grouter Helper Relationship Specialty Start Date End Date Monico Siegel MD [address] [place] [address] PCP - General Family Medicine 01/07/24 Grouter Helper Relationship Specialty Start Date End Date Monico Siegel MD [address] [place] [address] PCP - General Family Medicine 01/07/24 Grouter Helper Relationship Specialty Start Date End Date Monico Siegel MD [address] [place] [address] PCP - General Family Medicine 01/07/24 FOR [...] BE BASED ON THE PRIMARY CLINICAL RECORDS. [facility] [employer] [facility]. provides no warranty or guarantee of the accuracy or completeness of information in this document.
[2024-03-11 01:46] LABS: Amphetamine Urine VISTA NEGATIVE (<1000 ng/mL); Barbiturate Urine VISTA NEGATIVE (< 200 ng/mL); Benzodiazepine Urine VISTA NEGATIVE (< 200 ng/mL); Cocaine Urine VISTA NEGATIVE (< 300 ng/mL); Ecstacy Urine VISTA NEGATIVE (< 500 ng/mL); Methadone Urine VISTA NEGATIVE (< 300 ng/mL); PCP Urine VISTA NEGATIVE (< 25 ng/mL); THC Urine VISTA POSITIVE (< 50 ng/mL); Vista UDS pH Range 7
[2024-03-11 02:02] LABS: Magnesium 1.3 mg/dL (1.6-2.6)
[2024-03-11 02:04] LABS: Procalcitonin 0.08 ng/mL (0.00-0.09)
[2024-03-11] MEDS: Folic Acid 1 MG in 0.9% Normal Saline (50mL Bag) 50 ML 200 MG IV (02:42)
[2024-03-11] MEDS: Pantoprazole Sodium 40 MG in 0.9% Normal Saline (100mL MB+) 100 ML 330 MG IV ×3 (03:00→21:29)
[2024-03-11] MEDS: LORazepam 1 MG Tablet 0.5 MG PO ×5 (03:02→21:19)
[2024-03-11 03:18] LABS: Hepatitis B Surface Antibody Non-Reactive; Hepatitis B Surface Antigen Non-Reactive (Nonreactive); Hepatitis C Antibody Non-Reactive (Nonreactive)
[2024-03-11] MEDS: Dicyclomine 10 MG Capsule 20 MG PO (03:30)
[2024-03-11] MEDS: Lactated Ringers 1,000 ML 125 ML IV ×2 (03:30→15:07)
[2024-03-11] MEDS: proCHLORPERazine 10 MG/2 ML Vial IV (03:44)
[2024-03-11 04:16] LABS: Troponin-I HS 96 pg/mL (3.0-54.0)
--- NOTE | 2024-03-11 05:55 | US_ITS ---
STUDY: ABDOMINAL ULTRASOUND - RIGHT UPPER QUADRANT REASON FOR VISIT: Female, 53 years old abdominal pain TECHNIQUE: Ultrasound evaluation of the right upper quadrant was performed with real-time and static mills-scale imaging. TECHNICAL QUALITY: Adequate. COMPARISON: None. FINDINGS: Liver: The liver is enlarged and measures 20.1 cm. There is increased echogenicity consistent with fatty infiltration. The bile ducts are within normal limits. There is hepatic color flow. The direction of portal flow is hepatopetal. There is no demonstrated mass lesion. Gallbladder: Normal distended gallbladder. The gallbladder wall measures 2 mm. There is a negative sonographic Adams''s sign. There is a small amount of pericholecystic fluid. There is a solitary echogenic gallstone within the gallbladder. This measures 6 mm x 4 mm. Common Bile Duct (C.B.D.): The common bile duct measures 7 mm. Pancreas: Normal size of the head, body and tail of the pancreas. There is increased echogenicity of the pancreas. There is no demonstrated pancreatic mass or cyst. Right Kidney: Normal size of the right kidney. The right kidney measures 10.2 cm x 5 cm x 4 cm. Normal renal cortex. The right cortex measures 1.2 cm. There is no demonstrated renal mass or cyst. There is no right hydronephrosis. Incidental note is made of a recanalized umbilical vein. US/Gallbladder IMPRESSION: Hepatomegaly and fatty infiltration of the liver. Solitary gallstone with a small amount of pericholecystic fluid. Electronically Signed: José Monreal MD at 10:58 EDT ,
[2024-03-11 06:29] LABS: Absolute Lymphocyte Count 0.26 X10^3/uL (0.83-4.51); Absolute Neutrophil Count 3.4 X10^3/uL (2.0-7.7); Basophil# 0.02 X10^3/uL; Basophil% 0.5 % (0-1); Hematocrit 40.6 % (37-47); Hemoglobin 12.9 g/dL (12.0-15.0); Lymphocyte # 0.26 X10^3/ul (0.83-4.51); Lymphocyte % 6.7 % (19-41); Mean Corp Hgb Conc 31.8 g/dL (32-36); Mean Corpuscular Hgb 32.4 pg (27.0-32.0); Mean Platelet Vol. 10.3 fl (6.2-12.0); Monocyte% 5.2 % (0-10); NRBC Flagged by Analyzer 0 % (0-5); Neutrophil # 3.36 X10^3/uL (2.7-7.7); Neutrophil % 87.1 % (47-70); POSITIVE DIFFERENTIAL YES; Platelet Count 120 K/mm3 (150-450); RBC Distribution Width CV 14.2 % (11.6-14.6); RBC Distribution Width SD 53.4 fl (35.1-43.9); Red Blood Count 3.98 M/mm3 (4.2-5.4); White Blood Count 3.9 K/mm3 (4.4-11.0)
[2024-03-11 06:56] LABS: AST(SGOT) 196 U/L (15-37); Alanine Aminotransfer ALT/SGPT 111 U/L (13-56); Albumin, Serum 4.6 g/dL (3.2-5.0); Alkaline Phosphatase 119 U/L (45-117); Anion Gap 18 (5-15); BUN 6 mg/dL (7-18); BUN/Creat Ratio 6.2 RATIO (10-20); Calcium,Total 9.5 mg/dL (8.5-10.1); Chloride 97 mmol/L (98-107); Creatinine, Serum 0.97 mg/dL (0.55-1.02); EST Glomerular Filtration Rate 64 mL/min (>60); Est Glom Filt Rate - Afr Amer 77 mL/min (>60); Estimated Creatinine Clearance 65.57 ml/min; Globulin 4.4 g/dL (2.2-4.2); Glucose 169 mg/dL (74-106); Potassium 3.6 mmol/L (3.5-5.1); Sodium Level 135 mmol/L (136-145)
[2024-03-11 06:59] LABS: Troponin-I HS 135 pg/mL (3.0-54.0)
[2024-03-11] MEDS: ZONISAMIDE 100 MG CAPSULE PO (08:34)
[2024-03-11] MEDS: Thiamine Hydrochloride 100 MG Tablet PO (08:35)
[2024-03-11] MEDS: Escitalopram Oxalate 20 MG Tablet PO (08:35)
[2024-03-11] MEDS: Spironolactone 25 MG Tablet PO (08:35)
[2024-03-11] MEDS: Lisinopril 5 MG Tablet PO (08:35)
[2024-03-11] MEDS: Folic Acid 1 MG Tablet PO (08:35)
--- NOTE | 2024-03-11 10:16 | ECHOD_ITS ---
Reason For Study: Arrhythmia Procedure This was a 2D Doppler, Color Flow transthoracic echocardiogram. Exam performed portable in patient room. Left Ventricle Normal LV size. The estimated ejection fraction is 65 %. No evidence for diastolic dysfunction. No regional wall motion abnormalities noted. Right Ventricle Normal RV size. Normal systolic function. Atria The left and right atria are normal. No doppler evidence for ASD. Mitral Valve There is no mitral valve stenosis. Trivial mitral valve insufficiency. Tricuspid Valve There is no tricuspid stenosis. Unable to estimate RV systolic pressure due to inadequate jet, pulmonary artery pressure probably normal. Aortic Valve Trisinus/trileaflet aortic valve. There is no aortic stenosis. No aortic valve insufficiency. Pulmonic Valve There is no pulmonic valvular stenosis. No pulmonic valve insufficiency. Great Vessels Normal aortic root. Pericardium/Pleural No pericardial effusion. MMode/2D Measurements & Calculations LVIDd: 4.9 cm IVSd: 1.1 cm LVOT diam: 2.2 cm LVIDs: 2.0 cm LVPWd: 0.73 cm LVOT area: 3.7 cm2 RVDd: 3.3 cm FS: 59.7 % asc Aorta Diam: 3.3 cm LAV(MOD-bp): 51.4 ml LVAd ap4: 23.6 cm2 LAV(MOD-bp) Indexed: 29.2 ml/m2 LVLd ap4: 7.4 cm LAV(MOD-sp2): 52.9 ml EDV(MOD-sp4): 62.2 ml LAV(MOD-sp4): 41.9 ml EDV(sp4-el): 64.0 ml LVAs ap4: 13.4 cm2 LVLs ap4: 6.0 cm ESV(MOD-sp4): 25.8 ml ESV(sp4-el): 25.3 ml EF(MOD-sp4): 58.5 % EF(sp4-el): 60.5 % LVAd ap2: 23.0 cm2 SV(MOD-sp4): 36.4 ml SV(MOD-sp2): 37.5 ml LVLd ap2: 7.5 cm EDV(MOD-sp2): 60.6 ml EDV(sp2-el): 60.0 ml LVAs ap2: 13.6 cm2 LVLs ap2: 6.6 cm ESV(MOD-sp2): 23.1 ml ESV(sp2-el): 23.5 ml EF(MOD-sp2): 61.8 % SV(sp4-el): 38.7 ml LA dimension(2D): 3.6 cm LA A4 area: 15.4 cm2 RA A4 area: 13.9 cm2 TAPSE: 2.0 cm Doppler Measurements & Calculations MV E max jono: 58.1 cm/sec Lat Peak E' Jono: 12.5 cm/sec Med Peak E' Jono: 7.2 cm/sec MV A max jono: 63.5 cm/sec E/E' lat: 4.7 E/E' med: 8.1 MV E/A: 0.91 Ao V2 max: 133.0 cm/sec LV V1 max: 122.2 cm/sec SV(LVOT): 83.3 ml Ao max P.1 mmHg LV V1 max P.0 mmHg Ao V2 mean: 93.3 cm/sec LV V1 mean P.2 mmHg Ao mean P.0 mmHg LV V1 mean: 82.5 cm/sec Ao V2 VTI: 22.0 cm LV V1 VTI: 22.6 cm AV (velocity ratio): 1.0 RAZA(I,D): 3.8 cm2 RAZA(V,D): 3.4 cm2 PA V2 max: 106.5 cm/sec PA max PG (full): 1.1 mmHg ECHO/Echo Complete Interpretation Summary The estimated ejection fraction is 65 %. No evidence for diastolic dysfunction. Trivial mitral valve insufficiency. Ordering Physician: Nrobert Jansen Referring Physician: Chris Roberts Performed By: Lilia Diaz RDCS and Student
[2024-03-11] MEDS: 0.9% Saline Lock 10 ML Syringe IV ×2 (11:06→21:29)
[2024-03-11] MEDS: Enoxaparin 40 MG/0.4 ML Syringe SC (11:06)
[2024-03-11 11:12] LABS: Troponin-I HS 242 pg/mL (3.0-54.0)
--- NOTE | 2024-03-11 11:26 | CASEMGMT ---
SORIN ROMERO Assessment Face to Face with patient for initial transition planning/care coordination assessment. SORIN ROMERO introduced self and role at [facility], pt voices understanding. Pt is A&Ox4 and is resting comfortably in bed and is calm. Care providers, pharmacy, and demographics verified. Admitting dx: Possible ETOH withdrawal, Colitis, SVT episode LACE Strata: 1 PCP: Magdalena Specialists: Santiago (neuro) Preferred Pharmacy: [facility] Insurance: [facility] A/B only Prescription Benefit: None. Pt educated about Good Rx LNOK: Nick Field ([place]) Living Arrangements: Pt lives with her SO in a two story home with two steps to enter ADLs/IADLs:Ind. Transportation: Pt does not drive. Pt SO drives. Denies concerns DME: Denies all DME uses or needs HHC/SNF: Denies history or needs ETOH/Smoking: Pt states that she drinks 1-2 beers daily. Pt states that she drinks more on the weekends. Pt states that she drank 2 bottles of whiskey over the course of 3 days recently. Pt states that she smokes about a pack of cigarettes a day Pt?s goal: Home Plan: Home with pt SO. 6-click is 24. Pt denies the need for HHC, OP Tx, SNF, pt link, or CCN. CM to follow for potential blood thinning Rx. Pt denies further needs at this time. Report given to CLOTH WINDER MACHINE OPERATOR CM. Kimberlyn Anderson RN, CM
[2024-03-11 13:44] LABS: Hemoglobin A1c 4.7 % (3.8-5.6)
[2024-03-11] MEDS: Aspirin E.C. 81 MG Tablet PO (15:07)
--- NOTE | 2024-03-11 16:01 | PN.HOSP_ITS ---
Reason for Visit Reason for Visit: Diagnoses Generalized abdominal pain (03/11/24) Objective Data Objective Data Vital Signs: Vital Signs Temp Pulse Resp BP Pulse Ox O2 Del Method 98.4 F 109 H 18 166/93 H 97 Room Air 03/11/24 07:43 03/11/24 07:43 03/11/24 07:43 03/11/24 07:43 03/11/24 08:47 03/11/24 08:47 Oxygen Delivery Method Room Air Weight: 156 lb 8.451 oz Body Mass Index (BMI) 26.9 Intake & Output: Intake and Output for Last 24 Hours 03/09/24 03/10/24 03/11/24 23:59 23:59 23:59 Intake Total 100 / 100 3090.62 / 3090.62 Balance 100 / 100 3090.62 / 3090.62 Lab / Micro Data 03/11/24 05:30 03/11/24 05:30 Labs: Laboratory Results - last 24 hr 03/10/24 21:35: Acetone Level MODERATE H 03/10/24 21:50: Urine Color Yellow, Urine Clarity Clear, Urine pH 6.0, Ur Specific [place] 1.015, Urine Protein 100 H, Urine Glucose (UA) Normal, Urine Ketones 150 A*, Urine Occult Blood 25 H, Urine Nitrite Negative, Urine Bilirubin Negative, Urine Urobilinogen Normal, Ur Leukocyte Esterase Negative, Urine RBC 0-5 SEEN, Urine WBC 0 SEEN, Ur Squamous Epith Cells 0-5 SEEN, Urine Bacteria 0 SEEN, Urine Mucus 0 SEEN 03/10/24 22:16: WBC 4.4, RBC 4.05 L, Hgb 13.2, Hct 40.2, MCV 99.3 H, MCH 32.6 H, MCHC 32.8, RDW Std Deviation 51.6 H, RDW Coeff of Dixie 14.2, Plt Count 137 L, MPV 10.9, Immature Gran % (Auto) 0.500, Neut % (Auto) 87.2 H, Lymph % (Auto) 7.3 L, Stephens % (Auto) 4.1, Eos % (Auto) 0.0, Baso % (Auto) 0.9, Absolute Neuts (auto) 3.8, Absolute Lymphs (auto) 0.32 L, Nucleated RBC % 0, PT 16.8 H, INR 1.4, S odium 134 L, Potassium 4.0, Chloride 94 L, Carbon Dioxide 13.0 L, Anion Gap 28 H , BUN 9, Creatinine 0.82, Estim Creat Clear Calc 78.47, Est GFR (MDRD) Af Amer 94, Est GFR (MDRD) Non-Af 77, BUN/Creatinine Ratio 11.0, Glucose 173 H, Lactic Acid Cancelled, Calcium 9.8, Total Bilirubin 4.30 H, AST 273 H, ALT 121 H, Alkaline Phosphatase 115, Total Protein 8.5 H, Albumin 4.5, Globulin 4.0, Albumin/Globulin Ratio 1.1, Lipase 16, Ethyl Alcohol < 3.0, Blood Type A POSITIVE, Antibody Screen NEGATIVE 03/10/24 23:34: Lactic Acid 1.9 03/11/24 00:41: Direct Bilirubin 0.60 H 03/11/24 01:20: Phosphorus 3.0, Magnesium 1.3 L, Procalcitonin 0.08, Urine Opiates Screen NEGATIVE, Urine Methadone Screen NEGATIVE, Ur Barbiturates Screen NEGATIVE, Ur Phencyclidine Scrn NEGATIVE, Ur Amphetamines Screen NEGATIVE, MDMA (Ecstasy) Screen NEGATIVE, U Benzodiazepines Scrn NEGATIVE, Urine Cocaine Screen NEGATIVE, U Cannabinoids Screen POSITIVE H, Ur Drug Screen Comment , Hep Bs Antigen Non-Reactive, Hep Bs Antibody Non-Reactive, Hepatitis C Antibody Non- Reactive 03/11/24 03:51: Troponin I High Sens 96 H 03/11/24 05:30: WBC 3.9 L, RBC 3.98 L, Hgb 12.9, Hct 40.6, MCV 102.0 H, MCH 32.4 H, MCHC 31.8 L, RDW Std Deviation 53.4 H, RDW Coeff of Dixie 14.2, Plt Count 120 L , MPV 10.3, Immature Gran % (Auto) 0.500, Neut % (Auto) 87.1 H, Lymph % (Auto) 6.7 L, Stephens % (Auto) 5.2, Eos % (Auto) 0.0, Baso % (Auto) 0.5, Absolute Neuts (auto) 3.4, Absolute Lymphs (auto) 0.26 L, Nucleated RBC % 0, Sodium 135 L, Potassium 3.6, Chloride 97 L, Carbon Dioxide 20.0 L, Anion Gap 18 H, BUN 6 L, Creatinine 0.97, Estim Creat Clear Calc 65.57, Est GFR (MDRD) Af Amer 77, Est GFR (MDRD) Non-Af 64, BUN/Creatinine Ratio 6.2 L, Glucose 169 H, Calcium 9.5, T otal Bilirubin 3.00 H, AST 196 H, ALT 111 H, Alkaline Phosphatase 119 H, T roponin I High Sens 135 H*, Total Protein 9.0 H, Albumin 4.6, Globulin 4.4 H, Albumin/Globulin Ratio 1.0 Micro: Microbiology 03/10/24 22:46 Stool Stool Occult Blood ([place]) - Final Radiography Diagnostic Testing: Radiology Impression Abdomen/Pelvis CT 03/10/24 22:07 IMPRESSION: Colonic underdistention versus colitis from the transverse through the rectosigmoid colon. Findings consistent with chronic pancreatitis. Electronically Signed: Octavio Washington MD at 0:44 EDT Reading Location ID and State: [facility] / [place] Tel , Service support , Rhythm Strip Rhythm Strip: Sinus Tach Rate: 110 Ectopy: None Physical Exam Narrative Seen and examined. History was taken from the patient. She said she binge drinks about 2 bottles of whiskey on the weekends. She does not drink on weekdays. Complain of bilateral diffuse abdominal pain and she also had left-sided chest pain with radiation to bilateral carotids. She could not tell me whether she was short of breath or not. She was mildly dizzy but she was also in drunkenly state. Chest pain is resolved. She is sleepy lethargic and drowsy and said she could not sleep last night. She had CO and cardiac stent about 10 years ago. She was mildly nauseous and vomited once. Denies diarrhea. Physical exam General: Awake on verbal command but easily fall asleep. Lethargic and drowsy. HEENT: Atraumatic, PERRLA, EOMI, Normocephalic Oral: Oral mucosa dry. No Gingival or Mucosal Lesions/ Ulcerations Neck: Supple, No JVD, Negative Carotid Bruits Chest wall/Lungs: Air entry diminished in bilateral lung bases. No crepitation/rhonchi Cardiovascular: Sinus tachycardia with arrhythmia, PVCs normal S1, Normal S2, No M/G/R Abdomen: Bowel Sounds Present, Soft, right upper quadrant and lower quadrants mild tenderness. Liver not enlarged. : No dysuria. No renal angle tenderness. No suprapubic tenderness. Extremities: No edema, Capillary Refill Less than 3 Seconds Skin: No rashes, No breakdown Musculoskeletal: No Tenderness to Palpation of Joints or Extremities Neurological: Cranial nerves II-XII grossly intact, DTR 2+/4. No acute focal neurological deficit. Psych/Mental Status: Flat affect. Assessment & Plan Assessment/Plan (1) Diffuse abdominal pain: PLAN: Plan The patient is a 53 y/o F was admitted with onset of diffuse abdominal discomfort as well as nonbloody emesis and nausea ongoing over the last 24 hours with dark stools but no blood evidence on chronic iron supplementation with history of drinking heavily over the weekend with last drink reportedly on Friday with intake of at least 2 bottles of liquor over the weekend normally drinking approximately 0-2 beers sometimes daily but not all the time and given not improving prompted ED evaluation to be cautious. #1. Mild acute EtOH Withdrawal with history of chronic alcohol use disorder, binge drinking pattern with dependence and tolerance: Patient is on alcohol withdrawal Ativan based schedule and taper course along with other adjunctive medications gabapentin, Bentyl, Vistaril, clonidine, Klonopin as needed for alcohol withdrawal symptom control. Patient is on thiamine and folate acid. CIWA monitor. online affiliate marketing manager 180 consulted. 2. Acute on chronic alcoholic hepatitis: Patient admitted with total bili 4.3, improving 3.0, direct 0.6 therefore mainly indirect hyperbilirubinemia. ALT to AST ratio IS 1:2 improving. Alkaline phosphatase normal. Gallbladder ultrasound shows hepatomegaly with fatty infiltration. Solitary gallstone 6 mm x 4 mm with a small amount of pericholecystic fluid. GB wall 2 mm. Negative Adams sign. CBD 7 mm. Mild pericholecystic fluid may be acute reaction from alcoholic hepatitis. Will need to follow-up in GI clinic but I do not think patient has acute cholecystitis. #2. Hyperglycemia, suspected related with secondary to alcoholic ketosis: Admission glucose 173, anion gap elevated 28 however urinalysis with no glucose in the urine, ketones 150, hemoglobin A1C 4.7. Diabetes ruled out Atypical chest pain along with abdominal pain: Discussed with the orthotic/prosthetic clinician. Serial troponin shows mild elevation. EMS EKG junctional rhythm at [address] depression in inferior and lateral leads. Twelve-lead EKG shows junctional rhythm with mild ST depression V4-V6, lead II and aVF. Discussed with the orthotic/prosthetic clinician. 2D echo does not show regional wall motion abnormality. EF normal 65%. Trivial MR. If patient is stable hemodynamically: Do Lexiscan nuclear stress tomorrow. Does not seem cardiac related non-STEMI but may be demand ischemia. #3. Hyponatremia, hypochloremia, suspected hypovolemic given GI losses: Admission CMP with sodium 134, chloride 94, Hypomagnesemia 1.3. Magnesium is replaced. K3.6 on lower border. Serum phosphorus normal. Continue IV fluid support. Neutra-Phos ordered Monitor electrolytes. #4. CT abdomen shows probably underdistention of transverse through the rectosigmoid colon as she denied diarrhea: CT abdomen pelvis with colonic underdistention versus colitis from the transverse to the rectosigmoid colon, chronic pancreatitis: She denies diarrhea. C. difficile and enteric pathogen were added but canceled because she did not have any bowel movement and she did not had diarrhea at home. Does not need antibiotic, no #5. SVT: Notable bursts in the ED of SVT, potentially electrolyte related, continue hydration, magnesium and phosphorus levels requested, supplement as needed, #6. Chronic thrombocytopenia, alcohol abuse related: Admission platelet 137, similar to most recent previous, continue to closely trend. #7. Seizure disorder/epilepsy: Following with Dr. Henderson, last noted evaluation 01/29/24, will continue antiepileptic regimen including zonisamide. #8. CAD: Status post PCI 2017 of unclear location, temporarily hold aspirin in case of any intervention needs, not on statin, not on beta-santiago therapy, continue lisinopril regimen, would benefit from follow-up with cardiology. #9. Hypertension: Continue home regimen including lisinopril, spironolactone, PRN hydralazine. #10. Anxiety depression/bipolar disorder: We will continue patient home escitalopram regimen, given this reported history would benefit from consideration of broadening regimen to also include mood stabilizer, encourage continued outpatient follow-up. #11. Chronic migraines: Not on chronic prophylactic regimen, mild headache upon current presentation, will have as needed regimen. #12. Tobacco Abuse: Encouraged cessation, inpatient consultation per RT, NR if desired. #13. Chronic back pain: Encourage frequent positional changes, offloading. #14. Chronic cannabis use: Urine drug screen requested, given nausea/emesis always a concern for cyclic emesis syndrome. #15. Chronic anemia/iron deficiency anemia: Admission CBC with hemoglobin 13.2, MCV 99.3, baseline hemoglobin more commonly 12. Monitor CBC #16. Allergic rhinitis: Per current list does not appear to be on any regimen, noted history previously. #17. DVT prophylaxis, moderate risk: Started on Lovenox 40 mill subcu daily. Mild thrombocytopenia. Monitor CBC. Charges/Coding Addendum Addendum: Total time of the visit including total time spent in counseling or coordination of care, (more than 50% of the total time, spent in obtaining medical information from nurses and other ancillary care providers,explaining to the patient about labs, imaging, diagnosis and management of active complex medical conditions), multiple active conditions including alcoholic hepatitis, acute alcohol withdrawal, chest pain,, elevated troponin, review of EKG and discussion with orthotic/prosthetic clinician review of labs and imaging is 40 minutes. Visit Charges Inpatient E&M: 04745 Subs Hosp L3
[2024-03-11] MEDS: Na Biphos/Potassium Phosphate PACKET 1 PACKET PO ×2 (17:17→21:16)
[2024-03-11] MEDS: ZONISAMIDE 100 MG CAPSULE 200 MG PO ×2 (21:14→21:20)
[2024-03-11] MEDS: Magnesium Chloride 64 MG Delay Rel.Tablet 128 MG PO (21:15)
[2024-03-12 03:03] VITALS: BP 103/78; PULSE 86; RESP 18; TEMP 36.6; O2SAT 97
[2024-03-12] MEDS: LORazepam 1 MG Tablet 0.5 MG PO ×6 (03:11→21:06)
[2024-03-12 05:46] LABS: Absolute Neutrophil Count 1.5 X10^3/uL (2.0-7.7); Basophil# 0.02 X10^3/uL; Basophil% 0.6 % (0-1); Eosinophil# 0.05 X10^3/uL; Eosinophils% 1.5 % (0-5); Hematocrit 35.5 % (37-47); Hemoglobin 11.5 g/dL (12.0-15.0); Lymphocyte % 42.4 % (19-41); Mean Corp Hgb Conc 32.4 g/dL (32-36); Mean Corpuscular Hgb 32.4 pg (27.0-32.0); Mean Platelet Vol. 10.3 fl (6.2-12.0); Monocyte# 0.27 X10^3/uL; Monocyte% 8.2 % (0-10); NRBC Flagged by Analyzer 0 % (0-5); Neutrophil # 1.54 X10^3/uL (2.7-7.7); Neutrophil % 46.7 % (47-70); POSITIVE COUNT YES; Platelet Count 90 K/mm3 (150-450); RBC Distribution Width CV 14.2 % (11.6-14.6); RBC Distribution Width SD 52.6 fl (35.1-43.9); Red Blood Count 3.55 M/mm3 (4.2-5.4); White Blood Count 3.3 K/mm3 (4.4-11.0)
--- NOTE | 2024-03-12 05:55 | EKG12_ITS ---
Test Reason : Blood Pressure : / mmHG Vent. Rate : 088 BPM Atrial Rate : 088 BPM P-R Int : 126 ms QRS Dur : 082 ms QT Int : 462 ms P-R-T Axes : 064 028 027 degrees QTc Int : 559 ms Critical Test Result: Long QTc Normal sinus rhythm Prolonged QT Abnormal ECG When compared with ECG of 12-MAR-2024 05:22, MANUAL COMPARISON REQUIRED, DATA IS UNCONFIRMED Confirmed by TREY PICKARD, LORENZO ([id number]), commercial production editor ALYSON FRANKLIN ([id number]) on 03/16/2024 11:27:03 AM Referred By: Chris Roberts Confirmed By:LORENZO YANG MD
[2024-03-12 06:16] LABS: Differential Indicated SCAN CRITERIA MET
[2024-03-12] MEDS: Na Biphos/Potassium Phosphate PACKET 1 PACKET PO (06:17)
[2024-03-12 06:53] LABS: ALB/GLOB Ratio 1.1 RATIO (0.9-2.4); AST(SGOT) 120 U/L (15-37); Alanine Aminotransfer ALT/SGPT 77 U/L (13-56); Albumin, Serum 3.5 g/dL (3.2-5.0); Alkaline Phosphatase 86 U/L (45-117); Anion Gap 7 (5-15); BUN 10 mg/dL (7-18); BUN/Creat Ratio 12.5 RATIO (10-20); Bilirubin, Direct 1.07 mg/dL (0.00-0.30); Chloride 103 mmol/L (98-107); EST Glomerular Filtration Rate 80 mL/min (>60); Est Glom Filt Rate - Afr Amer 97 mL/min (>60); Globulin 3.3 g/dL (2.2-4.2); Glucose 98 mg/dL (74-106); Magnesium 1.6 mg/dL (1.6-2.6); Potassium 2.6 mmol/L (3.5-5.1); Protein, Total 6.8 g/dL (6.4-8.2); Sodium Level 137 mmol/L (136-145)
[2024-03-12] MEDS: Aspirin E.C. 81 MG Tablet PO (07:35)
[2024-03-12] MEDS: Lisinopril 5 MG Tablet PO (07:35)
[2024-03-12 07:40] LABS: Platelet Estimate SLT DEC (ADEQ)
[2024-03-12 07:54] VITALS: BP 119/88; PULSE 95; RESP 18; TEMP 36.6; O2SAT 96
[2024-03-12] MEDS: 0.9% Saline Lock 10 ML Syringe IV (08:01)
[2024-03-12] MEDS: Magnesium Sulfate 2 GM in Dextrose 5%-Water (100mL Bag) 100 ML IV (08:01)
[2024-03-12 08:04] VITALS: O2SAT 98
[2024-03-12] MEDS: Spironolactone 50 MG Tablet PO (10:12)
[2024-03-12] MEDS: Escitalopram Oxalate 20 MG Tablet PO (10:15)
[2024-03-12] MEDS: ZONISAMIDE 100 MG CAPSULE PO (10:15)
[2024-03-12] MEDS: Enoxaparin 40 MG/0.4 ML Syringe SC (10:15)
[2024-03-12] MEDS: Magnesium Chloride 64 MG Delay Rel.Tablet 128 MG PO ×2 (10:15→21:06)
[2024-03-12] MEDS: Potassium Chloride Oral Tablet 20 MEQ 40 MEQ PO (10:24)
--- NOTE | 2024-03-12 10:58 | CASEMGMT ---
Social Work- SW met with pt to discuss pt substance use and available supports. Pt states that she was stressed this weekend, but normally does not drink as lot . Pt reports that she gets stressed b/c SO works a lot and is gone from home a lot. Pt cares for the house and yard, as well as 2 dogs mostly on her own. 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 Pt reports that her 7 years ago and she has not processed the grief from that as wll, as she has stayed busy to avoid her feelings of loss. Pt reports that her step-son that she raised from age 3 quit communicating with her and disappeared 2-3 years ago, which has been another loss for pt. Pt states understanding that her alcohol consumption has physical implications and will continue to have an impact on overall health. Pt reports that she has hobbies such as riding her bike on the trails in [place], as well as to the [employer] stores nearby. Pt also enjoys working in her flower gardens and spending time with her dogs, which she reports are like her children. Pt reports that she has never spoken with a counselor for mental health or substance use. Pt denies anxiety or depression. Pt denies wanting referrals for counseling (mental health or substance use) at this time, reporting that pt SO is her best friend and rock . SW explored with pt her willingness to have hard conversations ie:mental health, substance use, her needs with SO. Pt reports that she often does just want to have good time with him, but reports she feels comfortable having those conversations with him; SW encouraged pt to do so. SW encouraged pt to utilize alternate coping skills and guided pt through a discussion of healthy coping skills. SW encouraged pt to have SO discard alcohol from home prior to d/c. Pt was agreeable to SW leaving [facility] with mental health, substance use, and crisis phone numbers highlighted. SW will remain available to follow. RAJNI Nava
[2024-03-12] MEDS: Pantoprazole Sodium 40 MG in 0.9% Normal Saline (100mL MB+) 100 ML 330 MG IV ×2 (11:15→21:06)
[2024-03-12 12:34] LABS: Anion Gap 10 (5-15); BUN 9 mg/dL (7-18); BUN/Creat Ratio 9.2 RATIO (10-20); Calcium,Total 9.2 mg/dL (8.5-10.1); Chloride 100 mmol/L (98-107); Creatinine, Serum 0.98 mg/dL (0.55-1.02); EST Glomerular Filtration Rate 63 mL/min (>60); Est Glom Filt Rate - Afr Amer 76 mL/min (>60); Glucose 174 mg/dL (74-106); Potassium 2.6 mmol/L (3.5-5.1); Sodium Level 135 mmol/L (136-145)
[2024-03-12] MEDS: Potassium Chloride 10mEq/100mL 10 MEQ/100 ML IV.SOLN. 100 MEQ IV BOLUS ×4 (13:40→18:46)
[2024-03-12 14:22] VITALS: BP 108/75; PULSE 93; RESP 18; TEMP 36.9; O2SAT 98
--- NOTE | 2024-03-12 15:44 | PCM.CONS.C ---
Assessment & Plan Assessment/Plan (1) Elevated troponin: PLAN: Asymptomatic. High-sensitivity troponin is in the nonspecific range. We attempted to get a stress test while she is in the hospital. However patient's potassium was 2.6 and due to risk of ventricular tachycardia the stress test was deferred. Since patient denies any cardiac symptoms, it is reasonable to get a stress test as an outpatient. HPI Consult Data Date of Consult: 03/12/24 HPI Narrative Reason for Consultation: Elevated troponin HPI Narrative: FELTON ARMENTA, is a 53 F who presents with abdominal pain, nausea vomiting. She has history of alcohol abuse. Her high-sensitivity troponin was elevated with a peak in the 200s. There is documentation that she had chest pain. However today patient states that she mainly had pain in the abdomen. She denies any chest pain or any history of chest pain. [facility] Medical History Health care maintenance Trochanteric bursitis, right hip Chronic back pain Breast cancer screening Pain in joint involving right pelvic region and thigh Migraine without aura and without status migrainosus, not intractable Wears glasses Cancer Bipolar disorder Depression Anxiety Alcohol use Marijuana use Low iron Easy bruising Injury of back Injury of head and neck Loss of consciousness Syncope Seizures Smoker Leg cramps Cardiology follow-up encounter Hypertension Multiple joint pain Heart valve disease Potassium (K) deficiency Vision problem History of pancreatitis Carpal tunnel syndrome Back problem Arthritis Anemia Seasonal allergies AA (alcohol abuse) UTERINE ABLATION Attempted suicide Difficulty balancing Seizures Diarrhea Hypertension Home Medications ?Medication ?Instructions ?Recorded ?Last Taken ?Type spironolactone 25 mg tablet 25 mg PO DAILY #90 tabs 07/16/22 Unknown Rx escitalopram oxalate 20 mg tablet 20 mg PO DAILY #90 tabs 11/20/23 Unknown Rx lisinopril 5 mg tablet 5 mg PO DAILY #30 tabs 01/06/24 Unknown Rx flurbiprofen 100 mg tablet 100 mg PO TID PRN pain #270 tabs 01/29/24 Unknown Rx zonisamide 100 mg capsule 100 mg .Route .COMPLEX EPILEPSY 01/29/24 Unknown Rx #90 caps Allergy/AdvReac Type Severity Reaction Status Date / Time Penicillins Allergy Other Verified 03/10/24 21:26 bupropion HCl (From AdvReac Depression Verified 03/10/24 21:26 Wellbutrin) Family History Aunt Breast cancer Thyroid disorder Father Cancer Grandfather Cancer Mother Diabetes Hypertension Grandmother Myocardial infarction Heart disease Hypertension Cancer Hypercholesterolemia Other Cerebral aneurysm Surgical History History of endometrial ablation History of tubal ligation S/P skin cancer resection H/O heart artery stent bladder sling History of heart surgery Social History (Updated 03/11/24 @ 01:[address] Raina Palomares MD) Smoking Status: Current every day smoker tobacco type: cigarettes Tobacco: How many years used: 26 Electronic Cigarette Use: not used second hand exposure: Yes alcohol intake: current alcohol intake frequency: 3 or more drinks per day Alcohol type: beer, wine and other details: Recent heavy hard liquor intake, prior intermittent beer intake, 1-3/time. substance use type: former substance user and marijuana what type of physical activity do you participate in: walking, bicycling and other details: LEG LIFTS frequency: daily sharon/judaism: None seatbelt use: always Physical Exam Const alert and oriented x3 HEENT normocephalic Resp normal respiratory effort Psych mental status grossly normal Risk Stratification Risk Stratification Applicable: No Charges/Coding Visit Charges Inpatient E&M: 14021 Init Hosp L1 Objective Data Vital Signs: Vital Signs Temp Pulse Resp BP Pulse Ox O2 Del Method 98.5 F 93 18 108/75 98 Room Air 03/12/24 14:22 03/12/24 14:22 03/12/24 14:22 03/12/24 14:22 03/12/24 14:22 03/12/24 14:22 Oxygen Delivery Method Room Air Weight: 156 lb 8.451 oz Body Mass Index (BMI) 26.9 Intake & Output: Intake and Output for Last 24 Hours 03/10/24 03/11/24 03/12/24 23:59 23:59 23:59 Intake Total 100 / 100 4565.20 / 4565.20 394 / 394 Balance 100 / 100 4565.20 / 4565.20 394 / 394 Lab / Micro Data 03/12/24 05:34 03/12/24 11:45 Labs: Laboratory Results - last 24 hr 03/12/24 05:34: WBC 3.3 L, RBC 3.55 L, Hgb 11.5 L, Hct 35.5 L, MCV 100.0 H, MCH 32.4 H, MCHC 32.4, RDW Std Deviation 52.6 H, RDW Coeff of Dixie 14.2, Plt Count 90 L, MPV 10.3, Immature Gran % (Auto) 0.600, Neut % (Auto) 46.7 L, Lymph % (Auto) 42.4 H, Humphreys % (Auto) 8.2, Eos % (Auto) 1.5, Baso % (Auto) 0.6, Absolute Neuts (auto) 1.5 L, Absolute Lymphs (auto) 1.40, Nucleated RBC % 0, Platelet Estimate SLT DEC, Sodium 137, Potassium 2.6 L*, Chloride 103, Carbon Dioxide 28.0, Anion Gap 7, BUN 10, Creatinine 0.80, Estim Creat Clear Calc 79.50, Est GFR (MDRD) Af Amer 97, Est GFR (MDRD) Non-Af 80, BUN/Creatinine Ratio 12.5, Glucose 98, Calcium 9.0, Magnesium 1.6, Total Bilirubin 2.60 H, Direct Bilirubin 1.07 H, AST 120 H, ALT 77 H, Alkaline Phosphatase 86, Total Protein 6.8, Albumin 3.5, Globulin 3.3, Albumin/Globulin Ratio 1.1 03/12/24 11:45: Sodium 135 L, Potassium 2.6 L*, Chloride 100, Carbon Dioxide 26.0, Anion Gap 10, BUN 9, Creatinine 0.98, Estim Creat Clear Calc 64.90, Est GFR (MDRD) Af Amer 76, Est GFR (MDRD) Non-Af 63, BUN/Creatinine Ratio 9.2 L, Glucose 174 H, Calcium 9.2 Rhythm Strip Rhythm Strip: Sinus Tach Rate: 110 Ectopy: None Cardiology Labs/Tests 03/12/24 05:34: WBC 3.3 L, RBC 3.55 L, Hgb 11.5 L, Hct 35.5 L, MCV 100.0 H, MCH 32.4 H, MCHC 32.4, Plt Count 90 L, MPV 10.3, Immature Gran % (Auto) 0.600, Neut % (Auto) 46.7 L, Lymph % (Auto) 42.4 H, Humphreys % (Auto) 8.2, Eos % (Auto) 1.5, Baso % (Auto) 0.6, Absolute Neuts (auto) 1.5 L, Nucleated RBC % 0, Sodium 137, Potassium 2.6 L*, Chloride 103, Carbon Dioxide 28.0, Anion Gap 7, BUN 10, Creatinine 0.80, Est GFR (MDRD) Af Amer 97, Est GFR (MDRD) Non-Af 80, BUN/Creatinine Ratio 12.5, Glucose 98, Calcium 9.0, Magnesium 1.6, Total Bilirubin 2.60 H, Direct Bilirubin 1.07 H 03/12/24 11:45: Sodium 135 L, Potassium 2.6 L*, Chloride 100, Carbon Dioxide 26.0, Anion Gap 10, BUN 9, Creatinine 0.98, Est GFR (MDRD) Af Amer 76, Est GFR (MDRD) Non-Af 63, BUN/Creatinine Ratio 9.2 L, Glucose 174 H, Calcium 9.2 Rhythm: EKG: ECHO: Stress Test: Cardiac Cath: PCI: CT Surgery: Holter monitor: EPS: PPM: CXR: Chest CT Scan:
--- NOTE | 2024-03-12 17:16 | PN.HOSP_ITS ---
Reason for Visit Reason for Visit: Diagnoses Generalized abdominal pain (03/11/24) Other specified abnormal findings of blood chemistry (03/11/24) Objective Data Objective Data Vital Signs: Vital Signs Temp Pulse Resp BP Pulse Ox O2 Del Method 98.5 F 93 18 108/75 98 Room Air 03/12/24 14:22 03/12/24 14:22 03/12/24 14:22 03/12/24 14:22 03/12/24 14:22 03/12/24 14:22 Oxygen Delivery Method Room Air Weight: 156 lb 8.451 oz Body Mass Index (BMI) 26.9 Intake & Output: Intake and Output for Last 24 Hours 03/10/24 03/11/24 03/12/24 23:59 23:59 23:59 Intake Total 100 / 100 4565.20 / 4565.20 494 / 494 Balance 100 / 100 4565.20 / 4565.20 494 / 494 Lab / Micro Data 03/12/24 05:34 03/12/24 11:45 Labs: Laboratory Results - last 24 hr 03/12/24 05:34: WBC 3.3 L, RBC 3.55 L, Hgb 11.5 L, Hct 35.5 L, MCV 100.0 H, MCH 32.4 H, MCHC 32.4, RDW Std Deviation 52.6 H, RDW Coeff of Dixie 14.2, Plt Count 90 L, MPV 10.3, Immature Gran % (Auto) 0.600, Neut % (Auto) 46.7 L, Lymph % (Auto) 42.4 H, [place] % (Auto) 8.2, Eos % (Auto) 1.5, Baso % (Auto) 0.6, Absolute Neuts (auto) 1.5 L, Absolute Lymphs (auto) 1.40, Nucleated RBC % 0, Platelet Estimate SLT DEC, Sodium 137, Potassium 2.6 L*, Chloride 103, Carbon Dioxide 28.0, Anion Gap 7, BUN 10, Creatinine 0.80, Estim Creat Clear Calc 79.50, Est GFR (MDRD) Af Amer 97, Est GFR (MDRD) Non-Af 80, BUN/Creatinine Ratio 12.5, Glucose 98, Calcium 9.0, Magnesium 1.6, Total Bilirubin 2.60 H, Direct Bilirubin 1.07 H, AST 120 H, ALT 77 H, Alkaline Phosphatase 86, Total Protein 6.8, Albumin 3.5, Globulin 3.3, Albumin/Globulin Ratio 1.1 03/12/24 11:45: Sodium 135 L, Potassium 2.6 L*, Chloride 100, Carbon Dioxide 26.0, Anion Gap 10, BUN 9, Creatinine 0.98, Estim Creat Clear Calc 64.90, Est GFR (MDRD) Af Amer 76, Est GFR (MDRD) Non-Af 63, BUN/Creatinine Ratio 9.2 L, G lucose 174 H, Calcium 9.2 Micro: Microbiology 03/10/24 22:46 Stool Stool Occult Blood (BRITTNEE) - Final Rhythm Strip Rhythm Strip: Sinus Tach Rate: 110 Ectopy: None Physical Exam Narrative Seen and examined. Patient abdominal pain and chest pain is resolved. Was evaluated by spreader operator. Patient denies any hallucination, delusion or seizure. Feels better after good sleep last night Physical exam General: Awake, alert and oriented x 3 HEENT: Atraumatic, PERRLA, EOMI, Normocephalic Oral: Oral mucosa dry. No Gingival or Mucosal Lesions/ Ulcerations Neck: Supple, No JVD, Negative Carotid Bruits Chest wall/Lungs: Air entry diminished in bilateral lung bases. No crepitation/rhonchi Cardiovascular: Sinus tachycardia with arrhythmia, PVCs normal S1, Normal S2, No M/G/R Abdomen: Bowel Sounds Present, Soft, mild right upper quadrant tenderness Liver not enlarged. : No dysuria. No renal angle tenderness. No suprapubic tenderness. Extremities: No edema, Capillary Refill Less than 3 Seconds Skin: No rashes, No breakdown Musculoskeletal: No Tenderness to Palpation of Joints or Extremities Neurological: Cranial nerves II-XII grossly intact, DTR 2+/4. No acute focal neurological deficit. Psych/Mental Status: Flat affect. Assessment & Plan Assessment/Plan (1) Diffuse abdominal pain: PLAN: Plan The patient is a 53 y/o F was admitted with onset of diffuse abdominal discomfort as well as nonbloody emesis and nausea ongoing over the last 24 hours with dark stools but no blood in the stool. She at least 2 bottles of liquor over the weekend normally drinking approximately 0-2 beers sometimes daily She had [facility] and cardiac stent about 10 years ago. She was mildly nauseous and vomited once. Denies diarrhea. #1. Mild acute EtOH Withdrawal with history of chronic alcohol use disorder, binge drinking pattern with dependence and tolerance: Patient is on alcohol withdrawal Ativan based schedule and taper course along with other adjunctive medications gabapentin, Bentyl, Vistaril, clonidine, Klonopin as needed for alcohol withdrawal symptom control. Patient is on thiamine and folate acid. CIWA monitor. branch store manager 180 consulted. 03/12: No acute seizure or withdrawal symptoms. 2. Acute on chronic alcoholic hepatitis: Patient admitted with total bili 4.3, improving 3.0, direct 0.6 therefore mainly indirect hyperbilirubinemia. ALT to AST ratio IS 1:2 improving. Alkaline phosphatase normal. Gallbladder ultrasound shows hepatomegaly with fatty infiltration. Solitary gallstone 6 mm x 4 mm with a small amount of pericholecystic fluid. GB wall 2 mm. Negative Adams sign. CBD 7 mm. Mild pericholecystic fluid may be acute reaction from alcoholic hepatitis. Will need to follow-up in GI clinic but I do not think patient has acute cholecystitis. 03/12: Mild RUQ tenderness on deep palpation otherwise doing good. #2. Hyperglycemia, suspected related with secondary to alcoholic ketosis: Admission glucose 173, anion gap elevated 28 however urinalysis with no glucose in the urine, ketones 150, hemoglobin A1C 4.7. Diabetes ruled out Atypical chest pain along with abdominal pain: Discussed with the spreader operator. Serial troponin shows mild elevation. EMS EKG junctional rhythm at [address] depression in inferior and lateral leads. Twelve-lead EKG shows junctional rhythm with mild ST depression V4-V6, lead II and aVF. Discussed with the spreader operator. 2D echo does not show regional wall motion abnormality. EF normal 65%. Trivial MR. If patient is stable hemodynamically: Do Lexiscan nuclear stress tomorrow. Does not seem cardiac related non-STEMI but may be demand ischemia. 03/12: Patient was evaluated by spreader operator for elevated troponin and mild nonspecific chest pain with radiation to carotid. Initially stress test was planned but patient had severe hypokalemia therefore it is postponed. Advised outpatient stress test. Twelve-lead EKG was done which shows increased QTc interval 559 ms. Normal sinus rhythm 88 bpm. OK interval 126 ms. QT prolonging medications including prochlorperazine, hydroxyzine, trazodone and escitalopram discontinued although patient did not get these medications. Monitor EKG tomorrow a.m. #3. Hyponatremia, hypochloremia, suspected hypovolemic given GI losses: Admission CMP with sodium 134, chloride 94, Hypomagnesemia 1.3. Magnesium is replaced. K3.6 on lower border. Serum phosphorus normal. Continue IV fluid support. Neutra-Phos ordered Monitor electrolytes. 03/12: Patient still has severe hypokalemia and hypomagnesemia. K2.6 even after replacement. Magnesium 1.6. Patient also on his spironolactone 50 mg daily. #4. CT abdomen shows probably underdistention of transverse through the rectosigmoid colon as she denied diarrhea: CT abdomen pelvis with colonic underdistention versus colitis from the transverse to the rectosigmoid colon, chronic pancreatitis: She denies diarrhea. C. difficile and enteric pathogen were added but canceled because she did not have any bowel movement and she did not had diarrhea at home. Does not need antibiotic, no #5. SVT: Notable bursts in the ED of SVT, potentially electrolyte related, continue hydration, magnesium and phosphorus levels requested, supplement as needed, #6. Chronic thrombocytopenia, alcohol abuse related: Admission platelet 137, similar to most recent previous, continue to closely trend. #7. Seizure disorder/epilepsy: Following with Dr. Henderson, last noted evaluation 01/29/24, will continue antiepileptic regimen including zonisamide. #8. CAD: Status post PCI 2016 of unclear location, temporarily hold aspirin in case of any intervention needs, not on statin, not on beta-santiago therapy, continue lisinopril regimen, would benefit from follow-up with cardiology. #9. Hypertension: Continue home regimen including lisinopril, spironolactone, PRN hydralazine. #10. Anxiety depression/bipolar disorder: We will continue patient home escitalopram regimen, given this reported history would benefit from consideration of broadening regimen to also include mood stabilizer, encourage continued outpatient follow-up. #11. Chronic migraines: Not on chronic prophylactic regimen, mild headache upon current presentation, will have as needed regimen. #12. Tobacco Abuse: Encouraged cessation, inpatient consultation per RT, NR if desired. #13. Chronic back pain: Encourage frequent positional changes, offloading. #14. Chronic cannabis use: Urine drug screen requested, given nausea/emesis always a concern for cyclic emesis syndrome. #15. Chronic anemia/iron deficiency anemia: Admission CBC with hemoglobin 13.2, MCV 99.3, baseline hemoglobin more commonly 12. Monitor CBC #16. Allergic rhinitis: Per current list does not appear to be on any regimen, noted history previously. #17. DVT prophylaxis, moderate risk: Started on Lovenox 40 mill subcu daily. Mild thrombocytopenia. Monitor CBC. Charges/Coding Visit Charges Inpatient E&M: 74499 Subs Hosp L2
[2024-03-12 19:07] LABS: Potassium 3.6 mmol/L (3.5-5.1)
[2024-03-12 21:11] VITALS: BP 108/64; PULSE 90; RESP 18; TEMP 36.2; O2SAT 95
[2024-03-13] VITALS (7 sets, daily range): BP systolic 104–122; BP diastolic 72–90; PULSE 53–104; RESP 16–26; TEMP 36.6–37.1; O2SAT 99–100
[2024-03-13] MEDS: LORazepam 1 MG Tablet 0.5 MG PO ×5 (01:46→21:18)
--- NOTE | 2024-03-13 05:21 | EKG12_ITS ---
Test Reason : AM EKG Blood Pressure : / mmHG Vent. Rate : 093 BPM Atrial Rate : 093 BPM P-R Int : 118 ms QRS Dur : 082 ms QT Int : 422 ms P-R-T Axes : 001 033 028 degrees QTc Int : 524 ms Normal sinus rhythm Nonspecific ST abnormality Prolonged QT Abnormal ECG When compared with ECG of 12-MAR-2024 11:49, MANUAL COMPARISON REQUIRED, DATA IS UNCONFIRMED Confirmed by TREY PICKARD, LORENZO ([id number]), avid editor ALYSON FRANKLIN ([id number]) on 03/19/2024 6:52:11 AM Referred By: Chris Roberts Confirmed By:LORENZO YANG MD
--- NOTE | 2024-03-13 05:55 | EKG12_ITS ---
Test Reason : PRE-OP Blood Pressure : / mmHG Vent. Rate : 089 BPM Atrial Rate : 089 BPM P-R Int : 126 ms QRS Dur : 082 ms QT Int : 442 ms P-R-T Axes : 067 052 043 degrees QTc Int : 537 ms Normal sinus rhythm Prolonged QT Abnormal ECG When compared with ECG of 11-MAR-2024 10:46, MANUAL COMPARISON REQUIRED, DATA IS UNCONFIRMED Confirmed by TREY PICKARD, LORENZO ([id number]), scientific publications editor ALYSON FRANKLIN ([id number]) on 03/16/2024 11:25:43 AM Referred By: Chris Roberts Confirmed By:LORENZO YANG MD
[2024-03-13 07:21] LABS: Absolute Lymphocyte Count 1.12 X10^3/uL (0.83-4.51); Absolute Neutrophil Count 1.2 X10^3/uL (2.0-7.7); Basophil# 0.01 X10^3/uL; Basophil% 0.4 % (0-1); Eosinophil# 0.04 X10^3/uL; Eosinophils% 1.5 % (0-5); Hematocrit 34.3 % (37-47); Hemoglobin 10.9 g/dL (12.0-15.0); Lymphocyte # 1.12 X10^3/ul (0.83-4.51); Lymphocyte % 43.1 % (19-41); Mean Corp Hgb Conc 31.8 g/dL (32-36); Mean Corpuscular Hgb 32.3 pg (27.0-32.0); Mean Corpuscular Volume 101.8 fL (81-99); Mean Platelet Vol. 11.2 fl (6.2-12.0); Monocyte# 0.23 X10^3/uL; Monocyte% 8.8 % (0-10); NRBC Flagged by Analyzer 0 % (0-5); Neutrophil # 1.19 X10^3/uL (2.7-7.7); Neutrophil % 45.8 % (47-70); POSITIVE COUNT YES; Platelet Count 76 K/mm3 (150-450); RBC Distribution Width CV 14.1 % (11.6-14.6); RBC Distribution Width SD 52.4 fl (35.1-43.9); Red Blood Count 3.37 M/mm3 (4.2-5.4); White Blood Count 2.6 K/mm3 (4.4-11.0)
[2024-03-13 07:29] LABS: ALB/GLOB Ratio 1.2 RATIO (0.9-2.4); AST(SGOT) 74 U/L (15-37); Alanine Aminotransfer ALT/SGPT 69 U/L (13-56); Albumin, Serum 3.5 g/dL (3.2-5.0); Alkaline Phosphatase 88 U/L (45-117); Anion Gap 9 (5-15); BUN 6 mg/dL (7-18); BUN/Creat Ratio 10.2 RATIO (10-20); Chloride 105 mmol/L (98-107); Creatinine, Serum 0.59 mg/dL (0.55-1.02); Differential Indicated SCAN CRITERIA MET; EST Glomerular Filtration Rate 114 mL/min (>60); Est Glom Filt Rate - Afr Amer 138 mL/min (>60); Glucose 100 mg/dL (74-106); Potassium 3.3 mmol/L (3.5-5.1); Protein, Total 6.5 g/dL (6.4-8.2); Sodium Level 140 mmol/L (136-145)
[2024-03-13] MEDS: Aspirin E.C. 81 MG Tablet PO (07:54)
[2024-03-13] MEDS: Multivitamins,Ther W-Minerals Tablet 1 TABLET PO (07:55)
[2024-03-13] MEDS: Folic Acid 1 MG Tablet PO (07:55)
[2024-03-13] MEDS: Thiamine Hydrochloride 100 MG Tablet PO (07:55)
[2024-03-13] MEDS: 0.9% Saline Lock 10 ML Syringe IV ×2 (07:55→21:18)
[2024-03-13] MEDS: Pantoprazole Sodium 40 MG in 0.9% Normal Saline (100mL MB+) 100 ML 330 MG IV ×2 (07:58→21:18)
[2024-03-13 09:52] LABS: Differential Comment SCANNED; Platelet Estimate MOD DEC (ADEQ); Red Cell Morphology NORM C+C NORMAL (NORM C&C)
[2024-03-13] MEDS: Spironolactone 25 MG Tablet 75 MG PO (10:10)
[2024-03-13] MEDS: Lisinopril 5 MG Tablet PO (10:10)
[2024-03-13] MEDS: Magnesium Chloride 64 MG Delay Rel.Tablet 128 MG PO ×2 (10:11→21:19)
[2024-03-13] MEDS: Enoxaparin 40 MG/0.4 ML Syringe SC (10:11)
[2024-03-13] MEDS: ZONISAMIDE 100 MG CAPSULE PO (12:10)
--- NOTE | 2024-03-13 14:21 | PN.HOSP_ITS ---
Reason for Visit Reason for Visit: Diagnoses Generalized abdominal pain (03/11/24) Other specified abnormal findings of blood chemistry (03/11/24) Objective Data Objective Data Vital Signs: Vital Signs Temp Pulse Resp BP Pulse Ox O2 Del Method O2 Flow Rate 98.2 F 53 L 16 104/77 99 Room Air 99 03/13/24 10:10 03/13/24 10:10 03/13/24 10:10 03/13/24 10:10 03/13/24 10:10 03/13/24 10:10 03/13/24 05:24 Oxygen Flow Rate (L/min) 99 Oxygen Delivery Method Room Air Weight: 156 lb 8.451 oz Body Mass Index (BMI) 26.9 Intake & Output: Intake and Output for Last 24 Hours 03/11/24 03/12/24 03/13/24 23:59 23:59 23:59 Intake Total 4565.20 / 4565.20 1084 / 1084 110 / 110 Balance 4565.20 / 4565.20 1084 / 1084 110 / 110 Lab / Micro Data 03/13/24 05:55 03/13/24 05:55 Labs: Laboratory Results - last 24 hr 03/12/24 18:40: Potassium 3.6 03/13/24 05:55: WBC 2.6 L, RBC 3.37 L, Hgb 10.9 L, Hct 34.3 L, MCV 101.8 H, MCH 32.3 H, MCHC 31.8 L, RDW Std Deviation 52.4 H, RDW Coeff of [place] 14.1, Plt Count 76 L, MPV 11.2, Immature Gran % (Auto) 0.400, Neut % (Auto) 45.8 L, Lymph % (Auto) 43.1 H, [place] % (Auto) 8.8, Eos % (Auto) 1.5, Baso % (Auto) 0.4, Absolute Neuts (auto) 1.2 L, Absolute Lymphs (auto) 1.12, Nucleated RBC % 0, Differential Comment SCANNED, Platelet Estimate MOD DEC, RBC Morphology NORM C+C, Sodium 140, Potassium 3.3 L, Chloride 105, Carbon Dioxide 26.0, Anion Gap 9, BUN 6 L, Creatinine 0.59, Estim Creat Clear Calc 107.80, Est GFR (MDRD) Af Amer 138, Est GFR (MDRD) Non-Af 114, BUN/Creatinine Ratio 10.2, Glucose 100, Calcium 9.0, T otal Bilirubin 2.20 H, AST 74 H, ALT 69 H, Alkaline Phosphatase 88, Total Protein 6.5, Albumin 3.5, Globulin 3.0, Albumin/Globulin Ratio 1.2 Micro: Microbiology 03/10/24 22:46 Stool Stool Occult Blood (BRITTNEE) - Final Rhythm Strip Rhythm Strip: Sinus Tach Rate: 110 Ectopy: None Physical Exam Narrative Seen and examined. Patient does not have tremor but she is unsteady on walking. PT and OT ordered. Patient abdominal pain and chest pain is resolved. Patient denies any hallucination, delusion or seizure. Physical exam General: Awake, alert and oriented x 3 HEENT: Atraumatic, PERRLA, EOMI, Normocephalic Oral: Oral mucosa dry. No Gingival or Mucosal Lesions/ Ulcerations Neck: Supple, No JVD, Negative Carotid Bruits Chest wall/Lungs: Air entry diminished in bilateral lung bases. No crepitation/rhonchi Cardiovascular: Sinus rhythm PVCs normal S1, Normal S2, No M/G/R Abdomen: Bowel Sounds Present, Soft, mild right upper quadrant tenderness Liver not enlarged. : No dysuria. No renal angle tenderness. No suprapubic tenderness. Extremities: No edema, Capillary Refill Less than 3 Seconds Skin: No rashes, No breakdown Musculoskeletal: No Tenderness to Palpation of Joints or Extremities Neurological: Cranial nerves II-XII grossly intact, DTR 2+/4. No acute focal neurological deficit. Psych/Mental Status: Flat affect. Assessment & Plan Assessment/Plan (1) Diffuse abdominal pain: PLAN: Plan The patient is a 53 y/o F was admitted with onset of diffuse abdominal discomfort as well as nonbloody emesis and nausea ongoing over the last 24 hours with dark stools but no blood in the stool. She at least 2 bottles of liquor over the weekend normally drinking approximately 0-2 beers sometimes daily She had [place] and cardiac stent about 10 years ago. She was mildly nauseous and vomited once. Denies diarrhea. #1. Mild acute EtOH Withdrawal with history of chronic alcohol use disorder, binge drinking pattern with dependence and tolerance: Patient is on alcohol withdrawal Ativan based schedule and taper course along with other adjunctive medications gabapentin, Bentyl, Vistaril, clonidine, Klonopin as needed for alcohol withdrawal symptom control. Patient is on thiamine and folate acid. CIWA monitor. manager assessment [id number] consulted. 03/12: No acute seizure or withdrawal symptoms. 03/13: CIWA score 0. Preablation has chronic gait instability. PT and OT ordered. 2. Acute on chronic alcoholic hepatitis: Patient admitted with total bili 4.3, improving 3.0, direct 0.6 therefore mainly indirect hyperbilirubinemia. ALT to AST ratio IS 1:2 improving. Alkaline phosphatase normal. Gallbladder ultrasound shows hepatomegaly with fatty infiltration. Solitary gallstone 6 mm x 4 mm with a small amount of pericholecystic fluid. GB wall 2 mm. Negative Adams sign. CBD 7 mm. Mild pericholecystic fluid may be acute reaction from alcoholic hepatitis. Will need to follow-up in GI clinic but I do not think patient has acute cholecystitis. 03/12: Mild RUQ tenderness on deep palpation otherwise doing good. 03/13: Total bilirubin 2.2, AST and ALT improving 3.0, Albumin/Globulin Ratio 1.2 #2. Hyperglycemia, suspected related with secondary to alcoholic ketosis: Admission glucose 173, anion gap elevated 28 however urinalysis with no glucose in the urine, ketones 150, hemoglobin A1C 4.7. Diabetes ruled out Atypical chest pain along with abdominal pain: Discussed with the quality assurance associate. Serial troponin shows mild elevation. EMS EKG junctional rhythm at [address] depression in inferior and lateral leads. Twelve-lead EKG shows junctional rhythm with mild ST depression V4-V6, lead II and aVF. Discussed with the quality assurance associate. 2D echo does not show regional wall motion abnormality. EF normal 65%. Trivial MR. If patient is stable hemodynamically: Do Lexiscan nuclear stress tomorrow. Does not seem cardiac related non-STEMI but may be demand ischemia. 03/12: Patient was evaluated by quality assurance associate for elevated troponin and mild nonspecific chest pain with radiation to carotid. Initially stress test was planned but patient had severe hypokalemia therefore it is postponed. Advised outpatient stress test. Twelve-lead EKG was done which shows increased QTc interval 559 ms. Normal sinus rhythm 88 bpm. SD interval 126 ms. QT prolonging medications including prochlorperazine, hydroxyzine, trazodone and escitalopram discontinued although patient did not get these medications. Monitor EKG tomorrow a.m. #3. Hyponatremia, hypochloremia, suspected hypovolemic given GI losses: Admission CMP with sodium 134, chloride 94, Hypomagnesemia 1.3. Magnesium is replaced. K3.6 on lower border. Serum phosphorus normal. Continue IV fluid support. Neutra-Phos ordered Monitor electrolytes. 03/12: Patient still has severe hypokalemia and hypomagnesemia. K2.6 even after replacement. Magnesium 1.6. Patient also on his spironolactone 50 mg daily. 03/13: K3.3. Serum sodium normal. Spironolactone dose increased to 75 mg daily. Patient does not have heart failure so probably she is on his spironolactone for liver disease. #4. CT abdomen shows probably underdistention of transverse through the rectosigmoid colon as she denied diarrhea: CT abdomen pelvis with colonic underdistention versus colitis from the transverse to the rectosigmoid colon, chronic pancreatitis: She denies diarrhea. C. difficile and enteric pathogen were added but canceled because she did not have any bowel movement and she did not had diarrhea at home. Does not need antibiotic, no #5. SVT: Notable bursts in the ED of SVT, potentially electrolyte related, continue hydration, magnesium and phosphorus levels requested, supplement as needed, #6. Chronic thrombocytopenia, alcohol abuse related: Admission platelet 137, similar to most recent previous, continue to closely trend. #7. Seizure disorder/epilepsy: Following with Dr. Henderson, last noted evaluation 01/29/24, will continue antiepileptic regimen including zonisamide. #8. CAD: Status post PCI 2017 of unclear location, temporarily hold aspirin in case of any intervention needs, not on statin, not on beta-santiago therapy, continue lisinopril regimen, would benefit from follow-up with cardiology. #9. Hypertension: Continue home regimen including lisinopril, spironolactone, PRN hydralazine. #10. Anxiety depression/bipolar disorder: We will continue patient home escitalopram regimen, given this reported history would benefit from consideration of broadening regimen to also include mood stabilizer, encourage continued outpatient follow-up. #11. Chronic migraines: Not on chronic prophylactic regimen, mild headache upon current presentation, will have as needed regimen. #12. Tobacco Abuse: Encouraged cessation, inpatient consultation per RT, NR if desired. #13. Chronic back pain: Encourage frequent positional changes, offloading. #14. Chronic cannabis use: Urine drug screen requested, given nausea/emesis always a concern for cyclic emesis syndrome. #15. Chronic anemia/iron deficiency anemia: Admission CBC with hemoglobin 13.2, MCV 99.3, baseline hemoglobin more commonly 12. Monitor CBC #16. Allergic rhinitis: Per current list does not appear to be on any regimen, noted history previously. #17. DVT prophylaxis, moderate risk: Started on Lovenox 40 mill subcu daily. Mild thrombocytopenia. Monitor CBC. Charges/Coding Visit Charges Inpatient E&M: 07273 Subs Hosp L2
[2024-03-13 20:50] LABS: Magnesium 1.3 mg/dL (1.6-2.6)
[2024-03-13] MEDS: Potassium Chloride Oral Tablet 20 MEQ 40 MEQ PO (21:18)
[2024-03-13] MEDS: ZONISAMIDE 100 MG CAPSULE 200 MG PO (21:19)
--- NOTE | 2024-03-13 22:16 | PCM.HOSP.N ---
Hospitalist Note K 3.3, not repleated per RN report, administered oral supplement. Mag checked, noted to be 1.3, will given supplementation.
[2024-03-13] MEDS: Magnesium Sulfate 2 GM in Dextrose 5%-Water (100mL Bag) 100 ML IV (22:36)
[2024-03-14 03:30] VITALS: BP 129/75; PULSE 95; RESP 18; TEMP 36.6; O2SAT 100
[2024-03-14] MEDS: LORazepam 1 MG Tablet 0.5 MG PO ×2 (03:35→09:10)
[2024-03-14 05:36] LABS: Absolute Lymphocyte Count 1.13 X10^3/uL (0.83-4.51); Absolute Neutrophil Count 1.6 X10^3/uL (2.0-7.7); Basophil# 0.02 X10^3/uL; Basophil% 0.6 % (0-1); Eosinophil# 0.08 X10^3/uL; Eosinophils% 2.6 % (0-5); Hematocrit 35.5 % (37-47); Hemoglobin 11.2 g/dL (12.0-15.0); Lymphocyte # 1.13 X10^3/ul (0.83-4.51); Lymphocyte % 36.1 % (19-41); Mean Corp Hgb Conc 31.5 g/dL (32-36); Mean Corpuscular Hgb 32.6 pg (27.0-32.0); Mean Corpuscular Volume 103.2 fL (81-99); Mean Platelet Vol. 11.4 fl (6.2-12.0); Monocyte# 0.25 X10^3/uL; NRBC Flagged by Analyzer 0 % (0-5); Neutrophil # 1.64 X10^3/uL (2.7-7.7); Neutrophil % 52.4 % (47-70); POSITIVE COUNT YES; Platelet Count 75 K/mm3 (150-450); RBC Distribution Width CV 14.1 % (11.6-14.6); RBC Distribution Width SD 53.6 fl (35.1-43.9); Red Blood Count 3.44 M/mm3 (4.2-5.4); White Blood Count 3.1 K/mm3 (4.4-11.0)
[2024-03-14 06:06] LABS: AST(SGOT) 67 U/L (15-37); Alanine Aminotransfer ALT/SGPT 70 U/L (13-56); Albumin, Serum 3.5 g/dL (3.2-5.0); Alkaline Phosphatase 92 U/L (45-117); Anion Gap 6 (5-15); BUN 6 mg/dL (7-18); BUN/Creat Ratio 9.3 RATIO (10-20); Calcium,Total 9.2 mg/dL (8.5-10.1); Chloride 107 mmol/L (98-107); Creatinine, Serum 0.65 mg/dL (0.55-1.02); EST Glomerular Filtration Rate 102 mL/min (>60); Est Glom Filt Rate - Afr Amer 123 mL/min (>60); Estimated Creatinine Clearance 97.85 ml/min; Globulin 3.5 g/dL (2.2-4.2); Glucose 106 mg/dL (74-106); Magnesium 1.7 mg/dL (1.6-2.6); Potassium 3.5 mmol/L (3.5-5.1); Sodium Level 138 mmol/L (136-145)
[2024-03-14] MEDS: Thiamine Hydrochloride 100 MG Tablet PO (08:03)
[2024-03-14] MEDS: Multivitamins,Ther W-Minerals Tablet 1 TABLET PO (08:03)
[2024-03-14] MEDS: Folic Acid 1 MG Tablet PO (08:03)
[2024-03-14] MEDS: Magnesium Chloride 64 MG Delay Rel.Tablet 128 MG PO (08:03)
[2024-03-14] MEDS: Aspirin E.C. 81 MG Tablet PO (08:03)
[2024-03-14] MEDS: 0.9% Saline Lock 10 ML Syringe IV (08:59)
[2024-03-14] MEDS: ZONISAMIDE 100 MG CAPSULE PO (09:00)
[2024-03-14] MEDS: Spironolactone 25 MG Tablet 75 MG PO (09:00)
[2024-03-14] MEDS: Lisinopril 5 MG Tablet PO (09:01)
[2024-03-14] MEDS: Enoxaparin 40 MG/0.4 ML Syringe SC (09:01)
[2024-03-14] MEDS: Pantoprazole Sodium 40 MG in 0.9% Normal Saline (100mL MB+) 100 ML 330 MG IV (09:01)
[2024-03-14 09:15] VITALS: BP 120/90; PULSE 96; RESP 16; TEMP 36.7; O2SAT 100
--- NOTE | 2024-03-14 10:01 | PCM.PN.HOSP ---
Reason for Visit Reason for Visit: Diagnoses Generalized abdominal pain (03/11/24) Other specified abnormal findings of blood chemistry (03/11/24) Objective Data Objective Data Vital Signs: Vital Signs Temp Pulse Resp BP Pulse Ox O2 Del Method O2 Flow Rate 98.0 F 96 16 120/90 H 100 Room Air 99 03/14/24 09:15 03/14/24 09:15 03/14/24 09:15 03/14/24 09:15 03/14/24 09:15 03/14/24 09:15 03/13/24 05:24 Oxygen Flow Rate (L/min) 99 Oxygen Delivery Method Room Air Weight: 156 lb 8.451 oz Body Mass Index (BMI) 26.9 Intake & Output: Intake and Output for Last 24 Hours 03/12/24 03/13/24 03/14/24 23:59 23:59 23:59 Intake Total 1084 / 1084 220 / 220 214 / 214 Balance 1084 / 1084 220 / 220 214 / 214 Lab / Micro Data 03/14/24 04:40 03/14/24 04:40 Labs: Laboratory Results - last 24 hr 03/13/24 05:55: Magnesium 1.3 L 03/14/24 04:40: WBC 3.1 L, RBC 3.44 L, Hgb 11.2 L, Hct 35.5 L, MCV 103.2 H, MCH 32.6 H, MCHC 31.5 L, RDW Std Deviation 53.6 H, RDW Coeff of [place] 14.1, Plt Count 75 L, MPV 11.4, Immature Gran % (Auto) 0.300, Neut % (Auto) 52.4, Lymph % (Auto) 36.1, [place] % (Auto) 8.0, Eos % (Auto) 2.6, Baso % (Auto) 0.6, Absolute Neuts (auto) 1.6 L, Absolute Lymphs (auto) 1.13, Nucleated RBC % 0, Sodium 138, Potassium 3.5, Chloride 107, Carbon Dioxide 26.0, Anion Gap 6, BUN 6 L, Creatinine 0.65, Estim Creat Clear Calc 97.85, Est GFR (MDRD) Af Amer 123, Est GFR (MDRD) Non-Af 102, BUN/Creatinine Ratio 9.3 L, Glucose 106, Calcium 9.2, Magnesium 1.7, Total Bilirubin 1.40 H, AST 67 H, ALT 70 H, Alkaline Phosphatase 92, Total Protein 7.0, Albumin 3.5, Globulin 3.5, Albumin/Globulin Ratio 1.0 Micro: Microbiology 03/10/24 22:46 Stool Stool Occult Blood (BRITTNEE) - Final Rhythm Strip Rhythm Strip: Sinus Tach Rate: 110 Ectopy: None
--- NOTE | 2024-03-14 10:02 | DCINST_ITS ---
Discharge Instructions Diet Discharge Diet: 2000 mg Sodium Diet Activity Discharge Activity: Return to Normal Activity (Follow with PCP before resumption driving) Weight Bearing Status: Weight bearing as tolerated Dressing / Incision Call your doctor if you observe: Fever of 101 or Higher, Coldness, Increased Pain, Numbness or Tingling, Change in Color, Inability to urinate, Inability to have a bowel movement, Shortness of breath, Dizziness, Fainting spells, Swelling in the ankles, Chest pain, Prolonged hiccupping, Increased palpitations (irregular heartbeat) and Calf discomfort Follow Up Care When: IN 2 WEEKS Test Results: Test results from this visit will be discussed in further detail at your follow- up appointment, if applicable. Discharge Plan Admission Admit Date/Time: 03/11/24 00:50 Primary Reason for Your Visit: Acute on chronic alcoholic hepatitis, electrolyte abnormality. Attending Provider: Norbert Jansen Primary Care Provider: Edis Nichols Consulting Providers: Raina Palomares Instructions Additional Instructions / Restrictions: BMP, magnesium and phosphorus in 3 days and follow with PCP. Advised outpatient nuclear treadmill stress test in 1 to 2 weeks Discharge Orders/Prescriptions Prescriptions: New thiamine HCl (vitamin B1) 100 mg Tablet 100 mg PO DAILYCM 30 Days Qty: 30 0RF folic acid 1 mg Tablet 1 mg PO DAILY@0800 30 Days Qty: 30 2RF magnesium chloride [Mag 64] 64 mg Tablet,Delayed Release (Dr/Ec) 128 mg PO BID 5 Days Qty: 20 0RF aspirin 81 mg Tablet,Delayed Release (Dr/Ec) 81 mg PO BREAKFAST 30 Days Qty: 30 2RF Continued flurbiprofen 100 mg tablet 100 mg PO TID PRN (Reason: pain) Qty: 270 2RF zonisamide 100 mg capsule 100 mg .ROUTE .COMPLEX Qty: 90 3RF Rx Instructions: Take 1 capsule PO every morning and 2 capsules every evening escitalopram oxalate 20 mg tablet 20 mg PO DAILY Qty: 90 0RF lisinopril 5 mg tablet 5 mg PO DAILY Qty: 30 0RF Changed spironolactone 25 mg tablet 75 mg PO DAILY Qty: 90 3RF Rx Instructions: Hold if K more than 5.0. Advised BMP in 3 days Referrals / Follow Up: Edis Nichols MD [Primary Care Provider] - Within 1 Week Bay Reyes MD [Med Staff - Active Staff] - Within 1 Month (Follow-up for elevated troponin after stress test) Disposition Disposition (needs filled in before D/C Order can be placed): Home, Self Care
--- NOTE | 2024-03-14 10:10 | EKG12_ITS ---
Test Reason : Blood Pressure : / mmHG Vent. Rate : 109 BPM Atrial Rate : 109 BPM P-R Int : 118 ms QRS Dur : 076 ms QT Int : 374 ms P-R-T Axes : 047 019 043 degrees QTc Int : 503 ms Sinus tachycardia with Premature atrial complexes Otherwise normal ECG When compared with ECG of 13-MAR-2024 05:21, MANUAL COMPARISON REQUIRED, DATA IS UNCONFIRMED Confirmed by TREY PICKARD, LORENZO ([id number]), acquisitions editor ALYSON FRANKLIN ([id number]) on 03/16/2024 11:20:44 AM Referred By: Chris Roberts Confirmed By:LORENZO YANG MD
--- NOTE | 2024-03-14 10:12 | PCM.DC.SUM ---
Providers Date of Admission: 03/11/24 Date of Discharge: 03/14/24 Primary Care Physician: Dr. Edis Nichols MD Reason For Visit: ETOH WITHDRAWL, ? COLITIS, SVT EPISODE Diagnosis Discharge Diagnosis (1) Diffuse abdominal pain: Status: Acute Code(s): R10.84 - Generalized abdominal pain Plan The patient is a 53 y/o F was admitted with onset of diffuse abdominal discomfort as well as nonbloody emesis and nausea ongoing over the last 24 hours with dark stools but no blood in the stool. She at least 2 bottles of liquor over the weekend normally drinking approximately 0-2 beers sometimes daily She had ID and cardiac stent about 10 years ago. She was mildly nauseous and vomited once. Denies diarrhea. #1. Mild acute EtOH Withdrawal with history of chronic alcohol use disorder, binge drinking pattern with dependence and tolerance: Patient is on alcohol withdrawal Ativan based schedule and taper course along with other adjunctive medications gabapentin, Bentyl, Vistaril, clonidine, Klonopin as needed for alcohol withdrawal symptom control. Patient is on thiamine and folate acid. CIWA monitor. newspaper manager 180 consulted. 03/12: No acute seizure or withdrawal symptoms. 03/13: CIWA score 0. Preablation has chronic gait instability. PT and OT ordered. 03/14: Patient was evaluated by PT and OT and recommended no therapy needed. Patient is discharged home. She herself says she walked in the hallway and did not feel unsteady. 2. Acute on chronic alcoholic hepatitis: Patient admitted with total bili 4.3, improving 3.0, direct 0.6 therefore mainly indirect hyperbilirubinemia. ALT to AST ratio IS 1:2 improving. Alkaline phosphatase normal. Gallbladder ultrasound shows hepatomegaly with fatty infiltration. Solitary gallstone 6 mm x 4 mm with a small amount of pericholecystic fluid. GB wall 2 mm. Negative Adams sign. CBD 7 mm. Mild pericholecystic fluid may be acute reaction from alcoholic hepatitis. Will need to follow-up in GI clinic but I do not think patient has acute cholecystitis. 03/12: Mild RUQ tenderness on deep palpation otherwise doing good. 03/13: Total bilirubin 2.2, AST and ALT improving 03/14: AST ALT and total bilirubin improving. Alkaline phosphatase 92. #2. Hyperglycemia, suspected related with secondary to alcoholic ketosis: Admission glucose 173, anion gap elevated 28 however urinalysis with no glucose in the urine, ketones 150, hemoglobin A1C 4.7. Diabetes ruled out Atypical chest pain along with abdominal pain: Discussed with the willow worker. Serial troponin shows mild elevation. EMS EKG junctional rhythm at [address] depression in inferior and lateral leads. Twelve-lead EKG shows junctional rhythm with mild ST depression V4-V6, lead II and aVF. Discussed with the willow worker. 2D echo does not show regional wall motion abnormality. EF normal 65%. Trivial MR. If patient is stable hemodynamically: Do Lexiscan nuclear stress tomorrow. Does not seem cardiac related non-STEMI but may be demand ischemia. 03/12: Patient was evaluated by willow worker for elevated troponin and mild nonspecific chest pain with radiation to carotid. Initially stress test was planned but patient had severe hypokalemia therefore it is postponed. Advised outpatient stress test. Twelve-lead EKG was done which shows increased QTc interval 559 ms. Normal sinus rhythm 88 bpm. OR interval 126 ms. QT prolonging medications including prochlorperazine, hydroxyzine, trazodone and escitalopram discontinued although patient did not get these medications. Monitor EKG tomorrow a.m. 03/14: Patient is discharged on baby aspirin. Was evaluated by willow worker and recommended outpatient treadmill nuclear stress test. Follow-up in cardiology office. Repeat EKG shows prolonged QT 524 ms. Patient did not had chest pain or significant arrhythmia on the monitor. Repeat EKG 03/14 was done. QT interval decreasing, 5 minutes 3 minutes. Reported sinus tachycardia 109 bpm, QTc 503 ms. PAC. Follow with PCP. Avoid QT prolonging medication #3. Hyponatremia, hypochloremia, suspected hypovolemic given GI losses: Admission CMP with sodium 134, chloride 94, Hypomagnesemia 1.3. Magnesium is replaced. K3.6 on lower border. Serum phosphorus normal. Continue IV fluid support. Neutra-Phos ordered Monitor electrolytes. 03/12: Patient still has severe hypokalemia and hypomagnesemia. K2.6 even after replacement. Magnesium 1.6. Patient also on his spironolactone 50 mg daily. 03/13: K3.3. Serum sodium normal. Spironolactone dose increased to 75 mg daily. Patient does not have heart failure so probably she is on his spironolactone for liver disease. 02/12: Potassium was low and replaced in today. Serum magnesium also low and getting replaced. Prescriptions given for magnesium chloride. Spironolactone dose was increased to 75 mg daily. Advised BMP, magnesium and phosphorus in 3 days and follow with PCP. #4. CT abdomen shows probably underdistention of transverse through the rectosigmoid colon as she denied diarrhea: CT abdomen pelvis with colonic underdistention versus colitis from the transverse to the rectosigmoid colon, chronic pancreatitis: She denies diarrhea. C. difficile and enteric pathogen were added but canceled because she did not have any bowel movement and she did not had diarrhea at home. Does not need antibiotic, no #5. SVT: Notable bursts in the ED of SVT, potentially electrolyte related, continue hydration, magnesium and phosphorus levels requested, supplement as needed, #6. Chronic thrombocytopenia, alcohol abuse related: Admission platelet 137, similar to most recent previous, continue to closely trend. #7. Seizure disorder/epilepsy: Following with Dr. Henderson, last noted evaluation 01/29/24, will continue antiepileptic regimen including zonisamide. #8. CAD: Status post PCI 2017 of unclear location, temporarily hold aspirin in case of any intervention needs, not on statin, not on beta-santiago therapy, continue lisinopril regimen, would benefit from follow-up with cardiology. #9. Hypertension: Continue home regimen including lisinopril, spironolactone, PRN hydralazine. #10. Anxiety depression/bipolar disorder: We will continue patient home escitalopram regimen, given this reported history would benefit from consideration of broadening regimen to also include mood stabilizer, encourage continued outpatient follow-up. #11. Chronic migraines: Not on chronic prophylactic regimen, mild headache upon current presentation, will have as needed regimen. #12. Tobacco Abuse: Encouraged cessation, inpatient consultation per RT, NR if desired. #13. Chronic back pain: Encourage frequent positional changes, offloading. #14. Chronic cannabis use: Urine drug screen requested, given nausea/emesis always a concern for cyclic emesis syndrome. #15. Chronic anemia/iron deficiency anemia: Admission CBC with hemoglobin 13.2, MCV 99.3, baseline hemoglobin more commonly 12. Monitor CBC #16. Allergic rhinitis: Per current list does not appear to be on any regimen, noted history previously. #17. DVT prophylaxis, moderate risk: Started on Lovenox 40 mill subcu daily. Mild thrombocytopenia. Monitor CBC. Discharge medication reconciliation done. Discharge follow-up instructions completed. Discharge process discussed with the patient and all questions were answered to patient's satisfaction. Follow with PCP in 1 to 2 weeks Total time spent, exact 35 minutes on discharge meds reconciliation, examination, coordination of care with nurses and ancillary staff, review of imaging and blood test and discussion with the patient on follow-up instructions. Laboratory Results 03/13/24 05:55: Magnesium 1.3 L 03/14/24 04:40: WBC 3.1 L, RBC 3.44 L, Hgb 11.2 L, Hct 35.5 L, MCV 103.2 H, MCH 32.6 H, MCHC 31.5 L, RDW Std Deviation 53.6 H, RDW Coeff of [place] 14.1, Plt Count 75 L, MPV 11.4, Immature Gran % (Auto) 0.300, Neut % (Auto) 52.4, Lymph % (Auto) 36.1, [place] % (Auto) 8.0, Eos % (Auto) 2.6, Baso % (Auto) 0.6, Absolute Neuts (auto) 1.6 L, Absolute Lymphs (auto) 1.13, Nucleated RBC % 0, Sodium 138, Potassium 3.5, Chloride 107, Carbon Dioxide 26.0, Anion Gap 6, BUN 6 L, Creatinine 0.65, Estim Creat Clear Calc 97.85, Est GFR (MDRD) Af Amer 123, Est GFR (MDRD) Non-Af 102, BUN/Creatinine Ratio 9.3 L, Glucose 106, Calcium 9.2, Magnesium 1.7, Total Bilirubin 1.40 H, AST 67 H, ALT 70 H, Alkaline Phosphatase 92, Total Protein 7.0, Albumin 3.5, Globulin 3.5, Albumin/Globulin Ratio 1.0 Clinical Impression(s) from Imaging Studies Abdomen/Pelvis CT 03/10/24 22:07 IMPRESSION: Colonic underdistention versus colitis from the transverse through the rectosigmoid colon. Findings consistent with chronic pancreatitis. Electronically Signed: Octavio Washington MD at 0:44 EDT , Gallbladder Ultrasound 03/11/24 05:55 IMPRESSION: Hepatomegaly and fatty infiltration of the liver. Solitary gallstone with a small amount of pericholecystic fluid. Electronically Signed: José Monreal MD at 10:58 EDT , Echocardiogram 03/11/24 10:16 Interpretation Summary The estimated ejection fraction is 65 %. No evidence for diastolic dysfunction. Trivial mitral valve insufficiency. Ordering Physician: Norbert Jansen Referring Physician: Chris Roberts Performed By: Lilia Diaz RDCS and Student Medications at Discharge Home Medications escitalopram oxalate 20 mg tablet 20 mg PO DAILY mental health #90 tabs 11/20/23 lisinopril 5 mg tablet 5 mg PO DAILY blood pressure #30 tabs 01/06/24 flurbiprofen 100 mg tablet 100 mg PO TID PRN pain #270 tabs 01/29/24 zonisamide 100 mg capsule 100 mg .Route .COMPLEX EPILEPSY #90 caps 01/29/24 aspirin 81 mg tablet,delayed release 81 mg PO BREAKFAST 30 days #30 tabs 03/14/24 folic acid 1 mg tablet 1 mg PO DAILY@0800 1 month #30 tabs 03/14/24 magnesium chloride 64 mg (magnesium chloride) tablet,delayed release (Mag 64) 128 mg (2 x 64 mg) PO BID 5 days #20 tabs 03/14/24 spironolactone 25 mg tablet 75 mg (3 x 25 mg) PO DAILY #90 tabs 03/14/24 thiamine HCl (vitamin B1) 100 mg tablet 100 mg PO DAILYCM 30 days #30 tabs 03/14/24 Physical Exam Narrative Seen and examined. Patient did not feel unsteady in walking. Was able to play PT. Patient denies abdominal pain and chest pain. Patient denies any hallucination, delusion or seizure. Physical exam General: Awake, alert and oriented x 3 HEENT: Atraumatic, PERRLA, EOMI, Normocephalic Oral: Oral mucosa dry. No Gingival or Mucosal Lesions/ Ulcerations Neck: Supple, No JVD, Negative Carotid Bruits Chest wall/Lungs: Air entry diminished in bilateral lung bases. No crepitation/rhonchi Cardiovascular: Sinus rhythm PVCs normal S1, Normal S2, No M/G/R Abdomen: Bowel Sounds Present, Soft, no tenderness/distention liver not enlarged. : No dysuria. No renal angle tenderness. No suprapubic tenderness. Extremities: No edema, Capillary Refill Less than 3 Seconds Skin: No rashes, No breakdown Musculoskeletal: No Tenderness to Palpation of Joints or Extremities Neurological: Cranial nerves II-XII grossly intact, DTR 2+/4. No acute focal neurological deficit. Psych/Mental Status: Flat affect. Weight / BMI Weight Weight: 156 lb 8.451 oz Body Mass Index (BMI) 26.9 ABG / Lab / Microbiology Data 03/14/24 04:40 03/14/24 04:40 Laboratory: Laboratory Results - last 24 hr 03/13/24 05:55: Magnesium 1.3 L 03/14/24 04:40: WBC 3.1 L, RBC 3.44 L, Hgb 11.2 L, Hct 35.5 L, MCV 103.2 H, MCH 32.6 H, MCHC 31.5 L, RDW Std Deviation 53.6 H, RDW Coeff of [place] 14.1, Plt Count 75 L, MPV 11.4, Immature Gran % (Auto) 0.300, Neut % (Auto) 52.4, Lymph % (Auto) 36.1, [place] % (Auto) 8.0, Eos % (Auto) 2.6, Baso % (Auto) 0.6, Absolute Neuts (auto) 1.6 L, Absolute Lymphs (auto) 1.13, Nucleated RBC % 0, Sodium 138, Potassium 3.5, Chloride 107, Carbon Dioxide 26.0, Anion Gap 6, BUN 6 L, Creatinine 0.65, Estim Creat Clear Calc 97.85, Est GFR (MDRD) Af Amer 123, Est GFR (MDRD) Non-Af 102, BUN/Creatinine Ratio 9.3 L, Glucose 106, Calcium 9.2, Magnesium 1.7, Total Bilirubin 1.40 H, AST 67 H, ALT 70 H, Alkaline Phosphatase 92, Total Protein 7.0, Albumin 3.5, Globulin 3.5, Albumin/Globulin Ratio 1.0 Microbiology: Microbiology 03/10/24 22:46 Stool Stool Occult Blood ([facility]) - Final D/C Instructions Discharge Diet: 2000 mg Sodium Diet Weight Bearing Status: Weight bearing as tolerated Call your doctor if you observe: Fever of 101 or Higher, Coldness, Increased Pain, Numbness or Tingling, Change in Color, Inability to urinate, Inability to have a bowel movement, Shortness of breath, Dizziness, Fainting spells, Swelling in the ankles, Chest pain, Prolonged hiccupping, Increased palpitations (irregular heartbeat) and Calf discomfort When: IN 2 WEEKS Meaningful Use Info Meaningful Use Meaningful Use Diagnoses (Choose all that apply): None applicable Ischemic Stroke Statin Dosing Therapy Reference: STATIN DOSE THERAPY REFERENCE: * Patients > 75 years receive moderate or high dose statin therapy. * Patients 75 years or YOUNGER should receive HIGH intensity statin dose unless contraindicated. You will be required to document reason for non-treatment if statin daily dose does not meet guidelines. HIGH DOSE STATIN THERAPY DAILY Atorvastatin > than or = to 40 mg Rosuvastatin > than or = to 20 mg Amlodipine + Atorvastatin > than or = to 2.5/40 mg Ezetimibe + Simvastatin 10/80 mg Simvastatin 80mg Discharge Plan Admission Admit Date/Time: 03/11/24 00:50 Primary Reason for Your Visit: Acute on chronic alcoholic hepatitis, electrolyte abnormality. Attending Provider: Norbert Jansen Primary Care Provider: Edis Nichols Consulting Providers: Raina Palomares Instructions Additional Instructions / Restrictions: BMP, magnesium and phosphorus in 3 days and follow with PCP. Advised outpatient nuclear treadmill stress test in 1 to 2 weeks Discharge Orders/Prescriptions Prescriptions: New thiamine HCl (vitamin B1) 100 mg Tablet 100 mg PO DAILYCM 30 Days Qty: 30 0RF folic acid 1 mg Tablet 1 mg PO DAILY@0800 30 Days Qty: 30 2RF magnesium chloride [Mag 64] 64 mg Tablet,Delayed Release (Dr/Ec) 128 mg PO BID 5 Days Qty: 20 0RF aspirin 81 mg Tablet,Delayed Release (Dr/Ec) 81 mg PO BREAKFAST 30 Days Qty: 30 2RF Continued flurbiprofen 100 mg tablet 100 mg PO TID PRN (Reason: pain) Qty: 270 2RF zonisamide 100 mg capsule 100 mg .ROUTE .COMPLEX Qty: 90 3RF Rx Instructions: Take 1 capsule PO every morning and 2 capsules every evening escitalopram oxalate 20 mg tablet 20 mg PO DAILY Qty: 90 0RF lisinopril 5 mg tablet 5 mg PO DAILY Qty: 30 0RF Changed spironolactone 25 mg tablet 75 mg PO DAILY Qty: 90 3RF Rx Instructions: Hold if K more than 5.0. Advised BMP in 3 days Referrals / Follow Up: Edis Nichols MD [Primary Care Provider] - Within 1 Week Bay Reyes MD [Med Staff - Active Staff] - Within 1 Month (Follow-up for elevated troponin after stress test) Disposition Disposition (needs filled in before D/C Order can be placed): Home, Self Care Charges/Coding Visit Charges Inpatient E&M: 47822 Disch Hosp >30min
[2024-03-14 10:25] VITALS: O2SAT 97
== END 2024-03-14 12:44 | disposition home or self-care (01) | DRG 897 ==
LOC: ED 03-11 00:16 → PCU 03-11 01:08
PROVIDERS: Admitting Provider Family Medicine; Emergency Provider Emergency Medicine; PCP Internal Medicine; Referring Provider Emergency Medicine; Visit Provider Internal Medicine
DX: F10.239 Alcohol dependence with withdrawal, unspecified (principal); I24.89 Other forms of acute ischemic heart disease; E87.29 Other acidosis; E87.1 Hypo-osmolality and hyponatremia; K86.1 Other chronic pancreatitis; I47.19 Other supraventricular tachycardia; D50.9 Iron deficiency anemia, unspecified; F12.90 Cannabis use, unspecified, uncomplicated; F31.9 Bipolar disorder, unspecified; G40.909 Epilepsy, unspecified, not intractable, without status epilepticus; K74.60 Unspecified cirrhosis of liver; I10 Essential (primary) hypertension; K70.10 Alcoholic hepatitis without ascites; E87.8 Other disorders of electrolyte and fluid balance, not elsewhere classified; D72.819 Decreased white blood cell count, unspecified; I25.10 Atherosclerotic heart disease of native coronary artery without angina pectoris; G43.709 Chronic migraine without aura, not intractable, without status migrainosus; K52.9 Noninfective gastroenteritis and colitis, unspecified; K80.20 Calculus of gallbladder without cholecystitis without obstruction; J30.9 Allergic rhinitis, unspecified; M54.9 Dorsalgia, unspecified; K80.70 Calculus of gallbladder and bile duct without cholecystitis without obstruction; E86.1 Hypovolemia; F17.210 Nicotine dependence, cigarettes, uncomplicated; F41.9 Anxiety disorder, unspecified; I25.2 Old myocardial infarction; E87.6 Hypokalemia; E83.42 Hypomagnesemia; Y90.0 Blood alcohol level of less than 20 mg/100 ml; G89.29 Other chronic pain; R10.84 Generalized abdominal pain; R73.9 Hyperglycemia, unspecified; Z79.899 Other long term (current) drug therapy; Z95.5 Presence of coronary angioplasty implant and graft
CPT/HCPCS: 36415; 74177; 76705; 80048; 80053; 80307; 81001; 82009; 82077; 82248; 82274; 83036; 83605; 83690; 83735; 84100; 84132; 84145; 84484; 85025; 85610; 86706; 86803; 86850; 86900; 86901; 87340; 93005; 93306; 97161; 97166; 97802; 99284; J7050; J7120; Q9967; A4216; J2405; J3490; J7799

== ENCOUNTER 2024-07-05 23:53 | Inpatient (IN) | payer MEDICARE, SELFPAY ==
[2024-07-05 23:55] VITALS: BP 172/102; PULSE 112; RESP 23; TEMP 36.6; O2SAT 98
[2024-07-05 23:56] VITALS: BP 149/133; PULSE 99; RESP 15; TEMP 36.6; O2SAT 94; BMI 28.2
[2024-07-06] VITALS (21 sets, daily range): BP systolic 81–172; BP diastolic 49–110; PULSE 101–187; RESP 14–27; TEMP 36.6–37; O2SAT 95–100; BMI 28.0
--- NOTE | 2024-07-06 00:49 | EKG12_ITS ---
Test Reason : Blood Pressure : */* mmHG Vent. Rate : 111 BPM Atrial Rate : 111 BPM P-R Int : 134 ms QRS Dur : 86 ms QT Int : 366 ms P-R-T Axes : 73 58 70 degrees QTcB Int : 497 ms Sinus tachycardia with Premature atrial complexes Nonspecific ST abnormality Abnormal ECG Confirmed by ISABEL PICKARD, LINK ([id number]), city editor ALYSON FRANKLIN ([id number]) on 07/07/2024 6:28:46 AM Referred By: MISSY Confirmed By: LINK HALL MD
[2024-07-06] MEDS: 0.9% Normal Saline (1000mL) 1,000 ML 999 ML IV (00:59)
[2024-07-06] MEDS: Ondansetron 4 MG/2 ML Vial IV ×2 (01:00→05:00)
[2024-07-06] MEDS: LORazepam 2 MG/ML Syringe 1 MG IV (01:00)
[2024-07-06 01:05] LABS: Absolute Lymphocyte Count 0.37 X10^3/uL (0.83-4.51); Absolute Neutrophil Count 2.4 X10^3/uL (2.0-7.7); Basophil# 0.01 X10^3/uL; Basophil% 0.3 % (0-1); Hemoglobin 12.1 g/dL (12.0-15.0); Lymphocyte # 0.37 X10^3/ul (0.83-4.51); Lymphocyte % 12.4 % (19-41); Mean Corp Hgb Conc 32.7 g/dL (32-36); Mean Corpuscular Hgb 32.8 pg (27.0-32.0); Mean Corpuscular Volume 100.3 fL (81-99); Mean Platelet Vol. 10.8 fl (6.2-12.0); Monocyte# 0.17 X10^3/uL; Monocyte% 5.7 % (0-10); NRBC Flagged by Analyzer 0 % (0-5); Neutrophil # 2.41 X10^3/uL (2.7-7.7); Neutrophil % 80.9 % (47-70); POSITIVE COUNT YES; POSITIVE DIFFERENTIAL YES; RBC Distribution Width SD 55.7 fl (35.1-43.9); Red Blood Count 3.69 M/mm3 (4.2-5.4)
[2024-07-06] MEDS: Phenobarbital Sodium 130 MG/ML Vial 150 MG IV (01:05)
[2024-07-06 01:07] LABS: Differential Indicated SCAN CRITERIA MET; Platelet Count 37 K/mm3 (150-450)
[2024-07-06 01:31] LABS: AST(SGOT) 122 U/L (15-37); Alanine Aminotransfer ALT/SGPT 56 U/L (13-56); Albumin, Serum 3.9 g/dL (3.2-5.0); Alkaline Phosphatase 119 U/L (45-117); Anion Gap 23 (5-15); BUN 4 mg/dL (7-18); BUN/Creat Ratio 4.8 RATIO (10-20); Bilirubin, Direct 0.86 mg/dL (0.00-0.30); Calcium,Total 9.3 mg/dL (8.5-10.1); Chloride 101 mmol/L (98-107); Creatinine, Serum 0.82 mg/dL (0.55-1.02); EST Glomerular Filtration Rate 77 mL/min (>60); Est Glom Filt Rate - Afr Amer 93 mL/min (>60); Estimated Creatinine Clearance 78.48 ml/min; Globulin 4.2 g/dL (2.2-4.2); Glucose 147 mg/dL (74-106); Lipase 17 U/L (13-75); Magnesium 1.1 mg/dL (1.6-2.6); Potassium 2.7 mmol/L (3.5-5.1); Protein, Total 8.1 g/dL (6.4-8.2); Sodium Level 141 mmol/L (136-145)
[2024-07-06 01:35] LABS: Differential Comment SCANNED; Platelet Estimate MKD DEC (ADEQ)
[2024-07-06 01:45] LABS: Amphetamine Urine NEGATIVE (<1000 ng/mL); Barbiturate Urine VISTA NEGATIVE (< 200 ng/mL); Benzodiazepine Urine VISTA NEGATIVE (< 200 ng/mL); Cocaine Urine VISTA NEGATIVE (< 300 ng/mL); Ecstacy Urine VISTA NEGATIVE (< 500 ng/mL); Methadone Urine VISTA NEGATIVE (< 300 ng/mL); PCP Urine VISTA NEGATIVE (< 25 ng/mL); THC Urine VISTA POSITIVE (< 50 ng/mL); Vista UDS pH Range 5
[2024-07-06] MEDS: Magnesium Sulfate 4gm/100mL 4 GM/100 ML IV.SOLN. IV (02:04)
--- NOTE | 2024-07-06 02:04 | PCM.HP.STD ---
[facility] - General General Date of Admission: 07/06/24 Date of Service: 07/06/24 Chief Complaint: EtOH Withdrawal with Intractable Nausea and Vomiting. [facility] Narrative FELTON ARMENTA, is a 54 F with a past medical history of essential hypertension; on lisinopril and spironolactone, overweight; with BMI of 28.2 this admission, chronic tobacco abuse, chronic cannabis abuse, chronic EtOH abuse; with previous pattern of binge drinking noted on her previous admission for treatment of EtOH withdrawal complicated by ylzyq-no-gebjuzz alcoholic hepatitis with CT evidence of chronic pancreatitis and hyponatremia with hypomagnesemia along with bursts of SVT noted in the ER here from March 11, 2024 to March 14, 2024, history of pancreatitis; due to EtOH, chronic thrombocytopenia; due to marrow-suppression from EtOH, history of YANETH, history of seizures; after previous head trauma on zonisamide, CAD; s/p PCI with stent (2016), history of syncope, history of uterine ablation, history of trochanteric bursitis of the Right hip, history of bladder sling, history of tubal ligation, history of endometrial ablation, history of CTS, history of migraine; without aura, bipolar disorder; on trazodone and escitalopram with previous suicide attempt, history of skin cancer; s/p resection, history of allergic rhinitis, listed allergy to PCN (?), history of GERD; currently untreated and OA; with chronic back pain on flurbiprofen TID who presents to [facility] ER complaining of wanting help with alcohol detoxification. Ms. Armenta reports her last drink was approximately 24 hours ago after she spontaneously decided to stop drinking after admittedly drinking at least ~3-4 beers daily. She then began to become anxious with jitteriness and tremors complicated by intractable nausea and vomiting consistent with her previous bouts of alcohol withdrawal so she decided to come in for further evaluation and treatment. Patient denies associated fever, chills, diarrhea, constipation, chest pain, shortness of breath or headache. In the ER she was diagnosed with clinical evidence of Acute EtOH Withdrawal in the setting of Chronic EtOH Abuse complicated by Intractable Nausea and Vomiting along with laboratory evidence of Severe [id number] Thrombocytopenia; with platelet count of 37K present on admission compounded by laboratory evidence of Hyperbilirubinemia of 2.4 mg/dL and direct bilirubin of 0.86 mg/dL present on admission plus Hypokalemia of 2.7 mmol/L and Hypomagnesemia of 1.1 mg/dL present on admission along with Leukopenia of 3K present on admission and a urine drug screen positive for Cannabis and a BERNARDINO of 12 mg/dL. She was then admitted to the PCU for ongoing care for a stay that is expected to extend beyond 2 midnights. [facility] Medical History (Updated 07/06/24 @ 05:[address] Oscar Fitzgerald DO) GERD (gastroesophageal reflux disease) Pancreatitis Elevated troponin Health care maintenance Trochanteric bursitis, right hip Chronic back pain Breast cancer screening Pain in joint involving right pelvic region and thigh Migraine without aura and without status migrainosus, not intractable Wears glasses Cancer Bipolar disorder Depression Anxiety Alcohol use Marijuana use Low iron Easy bruising Injury of back Injury of head and neck Loss of consciousness Syncope Seizures Smoker Leg cramps Cardiology follow-up encounter Hypertension Multiple joint pain Heart valve disease Potassium (K) deficiency Vision problem History of pancreatitis Carpal tunnel syndrome Back problem Arthritis Anemia Seasonal allergies AA (alcohol abuse) UTERINE ABLATION Attempted suicide Difficulty balancing Seizures Diarrhea Hypertension Home Medications ?Medication ?Instructions ?Recorded ?Last Taken ?Type escitalopram oxalate 20 mg tablet 20 mg PO DAILY mental health #90 11/20/23 Unknown Rx tabs lisinopril 5 mg tablet 5 mg PO DAILY blood pressure #30 01/06/24 Unknown Rx tabs flurbiprofen 100 mg tablet 100 mg PO TID PRN pain #270 tabs 01/29/24 Unknown Rx zonisamide 100 mg capsule 100 mg .Route .COMPLEX EPILEPSY 01/29/24 Unknown Rx #90 caps spironolactone 25 mg tablet 75 mg (3 x 25 mg) PO DAILY #90 tabs 03/14/24 Unknown Rx trazodone 50 mg tablet 50 mg PO QHS PRN insomnia #10 tabs 06/28/24 Unknown Rx Allergy/AdvReac Type Severity Reaction Status Date / Time Penicillins Allergy Other Verified 04/30/24 12:43 bupropion HCl (From AdvReac Depression Verified 04/30/24 12:43 Wellbutrin) Family History Aunt Breast cancer Thyroid disorder Father Cancer Grandfather Cancer Mother Diabetes Hypertension Grandmother Myocardial infarction Heart disease Hypertension Cancer Hypercholesterolemia Other Cerebral aneurysm Surgical History Tubal ligation status History of endometrial ablation History of tubal ligation S/P skin cancer resection H/O heart artery stent bladder sling History of heart surgery Social History Smoking Status: Current every day smoker tobacco type: cigarettes Tobacco: How many years used: 26 Electronic Cigarette Use: not used second hand exposure: Yes alcohol intake: current alcohol intake frequency: 3 or more drinks per day Alcohol type: beer, wine and other details: Recent heavy hard liquor intake, prior intermittent beer intake, 1-3/time. substance use type: former substance user and marijuana what type of physical activity do you participate in: walking, bicycling and other details: LEG LIFTS frequency: daily sharon/temple: None seatbelt use: always ROS ROS Narrative Review of Systems: Constitutional: Patient denies fever or chills. Eyes: Patient denies changes in vision or discharge from eyes. ENT: Patient denies runny nose, sore throat or ear pain. Resp: Patient denies shortness of breath or cough. CV: Patient denies chest pain, palpitations, heart racing or lower extremity edema. GI: Patient admits to generalized abdominal pain with nausea but she denies vomiting, diarrhea or constipation. : Patient denies dysuria, hematuria or urinary frequency. MSK: Patient denies arthralgias or myalgias. Skin: Patient denies rash, abscess, wounds or jaundice. Psych: Patient has history of bipolar disorder with uncontrolled depression or anxiety but she denies SI or HI. Neuro: Patient denies headache, paresthesias, focal neurologic deficits or seizure within the past year while on zonisamide. Allergy: Patient denies lip swelling, tongue swelling or urticaria. Hematology: Patient admits to easy bruisability with chronically low platelet count but she denies recent bleeding. Endocrinology: Patient denies polyuria, polydipsia or polyphagia. 14 point review of systems otherwise negative except for positives noted above in HPI. Vital Signs Vital Signs Vital Signs: 07/05/24 23:55 07/05/24 23:56 07/06/24 00:07 Temperature 97.9 F 97.8 F Temperature Source Oral Oral Pulse Rate 112 H 99 108 H Respiratory Rate 23 H 15 20 H Blood Pressure 172/102 H 149/133 H 172/102 H Blood Pressure Mean 125 138 125 Blood Pressure Source Monitor Blood Pressure Position Semi-Fowlers Blood Pressure Location Right Arm Pulse Ox 98 94 97 Oxygen Delivery Method Room Air Room Air 07/06/24 00:42 07/06/24 00:45 07/06/24 01:00 Temperature Temperature Source Pulse Rate 112 H Respiratory Rate 21 H Blood Pressure Blood Pressure Mean Blood Pressure Source Blood Pressure Position Blood Pressure Location Pulse Ox 95 97 96 Oxygen Delivery Method 07/06/24 01:19 07/06/24 01:30 07/06/24 01:40 Temperature Temperature Source Pulse Rate 122 H 118 H Respiratory Rate 27 H 24 H Blood Pressure 152/93 H Blood Pressure Mean 109 Blood Pressure Source Blood Pressure Position Blood Pressure Location Pulse Ox 97 97 97 Oxygen Delivery Method 07/06/24 01:45 Temperature Temperature Source Pulse Rate 115 H Respiratory Rate 20 H Blood Pressure 150/110 H Blood Pressure Mean 121 Blood Pressure Source Blood Pressure Position Blood Pressure Location Pulse Ox 98 Oxygen Delivery Method Weight Weight: 164 lb 7.437 oz Body Mass Index (BMI) 28.2 Physical Exam Const alert, oriented x3 and average body habitus Constitutional Narrative: Mild distress noted General Appearance: cooperative HEENT normocephalic, head/scalp atraumatic, hearing grossly normal bilaterally and moist oral mucous membranes Eyes PERRL and EOMs intact bilaterally Neck no lymphadenopathy and supple Resp normal respiratory effort, no retractions, no use of accessory muscles and clear to auscultation bilaterally Cardio regular rate and regular rhythm GI normal to inspection, nondistended, normoactive bowel sounds, soft to palpation, non-tender and non-distended Extremity normal to inspection and full ROM Skin Skin Narrative: Patient has no evidence of rash, abscess, wounds or jaundice. Neuro oriented x3, CN's II-XII intact bilaterally, moves all extremities and no focal motor deficits Sensorium / Orientation: awake, alert, oriented to person, oriented to place and oriented to time Speech: speech normal Psych Mood & Affect: depressed and anxious Results Medical Records Data Attestation: I reviewed the patient's medical records Lab / Micro Data Attestation: I reviewed the patient's lab results. 07/06/24 00:02 07/06/24 00:02 Labs: Laboratory Results - last 24 hr 07/06/24 00:02: WBC 3.0 L, RBC 3.69 L, Hgb 12.1, Hct 37.0, MCV 100.3 H, MCH 32.8 H, MCHC 32.7, RDW Std Deviation 55.7 H, RDW Coeff of Dixie 15.0 H, Plt Count 37 L*, MPV 10.8, Immature Gran % (Auto) 0.700, Neut % (Auto) 80.9 H, Lymph % (Auto) 12.4 L, Dickson % (Auto) 5.7, Eos % (Auto) 0.0, Baso % (Auto) 0.3, Absolute Neuts (auto) 2.4, Absolute Lymphs (auto) 0.37 L, Nucleated RBC % 0, Differential Comment SCANNED, Diff Path Review October, Platelet Estimate MKD DEC, Sodium 141, Potassium 2.7 L*, Chloride 101, Carbon Dioxide 17.0 L, Anion Gap 23 H, BUN 4 L, Creatinine 0.82, Estim Creat Clear Calc 78.48, Est GFR (MDRD) Af Amer 93, Est GFR (MDRD) Non-Af 77, BUN/Creatinine Ratio 4.8 L, Glucose 147 H, Calcium 9.3, Magnesium 1.1 L, Total Bilirubin 2.40 H, Direct Bilirubin 0.86 H, AST 122 H, ALT 56, Alkaline Phosphatase 119 H, Total Protein 8.1, Albumin 3.9, Globulin 4.2, Lipase 17, Ethyl Alcohol 12.0 07/06/24 01:17: Urine Opiates Screen NEGATIVE, Urine Methadone Screen NEGATIVE, Ur Barbiturates Screen NEGATIVE, Ur Phencyclidine Scrn NEGATIVE, Ur Amphetamines Screen NEGATIVE, MDMA (Ecstasy) Screen NEGATIVE, U Benzodiazepines Scrn NEGATIVE, Urine Cocaine Screen NEGATIVE, U Cannabinoids Screen POSITIVE H, Ur Drug Screen Comment Imaging [facility] Imaging Services [address] [place] [address] Abdomen/Pelvis without Cont MR#: [id number] Acct: [id number] Name: FELTON ARMENTA Rep #: [id number] : 1970 F 54 From: Shiela Hickman MD PCP: Dr. Edis Nichols MD Status: ADM IN Study: Abdomen/Pelvis without Cont Date of Exam: 07/06/24 Exam# [id number] Ordering Dr: Riley Moura DO EXAM: CT Abdomen And Pelvis W/O Contrast Injection HISTORY: Intractable N/V. Evaluate for pancreatitis. TECHNIQUE: Routine protocol CT abdomen and pelvis. IV Contrast: None.. Oral contrast: None. RADIATION DOSAGE (If Supplied By Facility): CTDIvol = ( 7.87 ) mGy, DLP = ( 391.46 ) mGycm Individualized dose optimization techniques were used for this CT. COMPARISON: CT abdomen pelvis 03/11/2024. LIMITATIONS: None. FINDINGS: LOWER CHEST: Included lung bases are clear. Coronary artery calcifications are noted. Small hiatal hernia. LIVER: Enlarged. Heterogeneous. Fatty infiltration. Nodular contour. GALLBLADDER AND BILIARY TREE: Small gallstones in the gallbladder. PANCREAS: Calcifications in the head and uncinate process. No definite adjacent inflammatory changes. No fluid collections.. SPLEEN: Grossly unremarkable. ADRENAL GLANDS: Grossly unremarkable. KIDNEYS AND URETERS: Right kidney with lobulated contour as on the prior. Small calculus in the right kidney. No hydronephrosis. PERITONEUM: No free air. No free fluid. BOWEL: No bowel obstruction. APPENDIX: Visualized and unremarkable. No evidence of acute appendicitis. VESSELS: Abdominal aorta is normal caliber. REPRODUCTIVE ORGANS: Grossly unremarkable. Essure microinserts noted. URINARY BLADDER: Grossly unremarkable. ABDOMINAL WALL: Unremarkable. BONES: No acute abnormalities. Degenerative changes lumbar spine with minimal anterolisthesis at L4-5 CT/Abdomen/Pelvis without Cont IMPRESSION: Hepatomegaly with steatosis. Probable cirrhosis. Changes of chronic pancreatitis. No definite evidence of acute pancreatitis. Cholelithiasis.. Electronically Signed: Shiela Hickman MD at 5:31 EST , CC: Dr. Riley Moura, DO; Dr. Edis Nichols MD ~ [place] [employer]: Signed Assessment & Plan Assessment/Plan (1) Alcohol withdrawal: QUALIFIERS: Complication of substance-induced condition: with unspecified complication Qualified Code(s): F10.939 - Alcohol use, unspecified with withdrawal, unspecified (2) Chronic alcohol abuse: (3) Intractable nausea and vomiting: (4) Thrombocytopenia: (5) Potassium (K) deficiency: (6) Hypomagnesemia: (7) Tobacco abuse: (8) Cannabis abuse: (9) Leukopenia: QUALIFIERS: Leukopenia type: unspecified Qualified Code(s): D72.819 - Decreased white blood cell count, unspecified (10) Bipolar disorder: QUALIFIERS: Active/Remission status: currently active Current bipolar episode type: mixed Current episode severity: severe Psychotic features: unspecified Qualified Code(s): F31.63 - Bipolar disorder, current episode mixed, severe, without psychotic features (11) Seizure disorder: PLAN: Plan 1. Acute EtOH Withdrawal in the setting of Chronic EtOH Abuse with laboratory evidence of Hyperbilirubinemia of 2.4 mg/dL and direct bilirubin of 0.86 mg/dL present on admission with confirmatory CT evidence of hepatomegaly with steatosis and probable cirrhosis with changes of chronic pancreatitis and no definitive evidence of acute pancreatitis in addition to cholelithiasis - Admit to PCU for treatment of alcohol withdrawal protocol primarily consisting of IV phenobarbital taper. Give IV thiamine and IV folate. Alcohol Cessation will be strongly encouraged. We will avoid potentially hepatotoxic agents. 2. Intractable Nausea and Vomiting complicating #1 - Give pantoprazole 40 mg IV daily. Give Zofran IV prn nausea and vomiting. Place scopolamine patch to control severe nausea. Check CT scan of abdomen and pelvis to investigate potential causes of intractable nausea and vomiting. 3. Severe [id number] Thrombocytopenia; with platelet count of 37K present on admission presumed to be due to marrow-suppression from EtOH compounding #1 & #2 - Check daily CBC to follow trend. Type & Screen blood in case platelet count continues to fall and/or bleeding ensues. 4. Hypokalemia of 2.7 mmol/L present on admission adding to the medical complexity of #1 - #3 - Give supplemental KCl and then recheck level to document normalization. 5. Hypomagnesemia of 1.1 mg/dL present on admission adding to the burden of disease outlined from #1 - #4 - Patient was treated with 4g magnesium sulfate IV once in ER. Recheck level in AM to confirm repletion. 6. Newly diagnosed Folate deficiency of 2.9 ng/mL present on admission - Give Folate 1mg IV daily. 7. Similar previous admission from March 11, 2024 to March 14, 2024 for treatment of EtOH withdrawal complicated by [id number] alcoholic hepatitis with CT evidence of chronic pancreatitis and hyponatremia with hypomagnesemia along with bursts of SVT noted in the ER - Noted. 8. Chronic Tobacco Abuse - Tobacco Cessation will be strongly encouraged with Nicotine patch offered to control cravings. 9. Chronic cannabis abuse; with UDS positive for cannabis this admission - Cannabis Cessation will be strongly encouraged. 10. Leukopenia of 3K present on admission - Check HIV screening test. Check daily CBC to follow trend. 11. Bipolar disorder; on trazodone and escitalopram with previous suicide attempt - Noted. Continue home regimen as before. 12. Essential Hypertension; on lisinopril and spironolactone - Maintain current lisinopril but hold spironolactone with hypokalemia noted. Give IV hydralazine prn for systolic blood pressure > 160 mmHg. 13. History of seizures; after previous head trauma on zonisamide - Continue zonisamide as previous plus give IV lorazepam for breakthrough seizure activity. 14. Overweight; with BMI of 28.2 this admission - Weight loss will be recommended. Check TSH. 15. History of YANETH - Stable with hemoglobin of 12.1 g/dL and MCV of 100.3 fL present on admission. Check iron, ferritin, B12 and Folate levels in this chronic alcoholic patient. 16. CAD; s/p PCI with stent (2017) - Patient currently not on BASA, statin or any other treatment for this issue. 17. History of syncope - Noted. 18. History of uterine ablation - Noted. 19. History of trochanteric bursitis of the Right hip - Noted. 20. History of bladder sling - Noted. 21. History of tubal ligation - Noted. 22. History of endometrial ablation - Noted. 23. History of CTS - Noted. 24. History of migraine; without aura - Stable. 25. History of skin cancer; s/p resection - Noted. 26. History of allergic rhinitis - Noted. 27. Listed allergy to PCN (?) - Noted. 28. History of GERD; currently untreated - Started IV pantoprazole daily for #2 plus patient noted to be on daily unopposed chronic NSAID's. 29. OA; with chronic back pain on flurbiprofen TID - Noted. Hold flurbiprofen with low platelet count to minimize risk of potential bleeding complications. 30. DVT prophylaxis - Due to patient's thrombocytopenia she is not deemed to be a suitable candidate for chemoprophylaxis or SCDs. Total time: Approximately (but not less than) 75 minutes. Charges/Coding Visit Charges Inpatient E&M: 46580 Init Hosp L3
--- NOTE | 2024-07-06 02:10 | EDS_ITS ---
HPI History of Present Illness Chief Complaint: ETOH Intox Informant: patient Narrative Narrative: Patient is a 54-year-old female with past medical history of hypertension epilepsy anxiety and depression bipolar disorder and alcohol abuse. She states that she is drank whiskey daily for multiple years. She reports however that recently her son and since that time the increased stress has led her to drink essentially 1 bottle of whiskey daily. She states has been doing that for the past 1 to 2 months. She states that she recently decided to try and quit and has not had alcohol for roughly 24 hours. She states that she is having generalized abdominal pain nausea vomiting sensation of palpitations and shakiness. She does report that she has been through withdrawals in the past and this feels very similar nature and secondary to this comes in for evaluation [facility] Medical History (Updated 07/06/24 @ 05:[address] Oscar Fitzgerald, DO) GERD (gastroesophageal reflux disease) Pancreatitis Elevated troponin Health care maintenance Trochanteric bursitis, right hip Chronic back pain Breast cancer screening Pain in joint involving right pelvic region and thigh Migraine without aura and without status migrainosus, not intractable Wears glasses Cancer Bipolar disorder Depression Anxiety Alcohol use Marijuana use Low iron Easy bruising Injury of back Injury of head and neck Loss of consciousness Syncope Seizures Smoker Leg cramps Cardiology follow-up encounter Hypertension Multiple joint pain Heart valve disease Potassium (K) deficiency Vision problem History of pancreatitis Carpal tunnel syndrome Back problem Arthritis Anemia Seasonal allergies AA (alcohol abuse) UTERINE ABLATION Attempted suicide Difficulty balancing Seizures Diarrhea Hypertension Home Medications ?Medication ?Instructions ?Recorded ?Last Taken ?Type escitalopram oxalate 20 mg tablet 20 mg PO DAILY mental health #90 11/20/23 Unknown Rx tabs lisinopril 5 mg tablet 5 mg PO DAILY blood pressure #30 01/06/24 Unknown Rx tabs flurbiprofen 100 mg tablet 100 mg PO TID PRN pain #270 tabs 01/29/24 Unknown Rx zonisamide 100 mg capsule 100 mg .Route .COMPLEX EPILEPSY 01/29/24 Unknown Rx #90 caps spironolactone 25 mg tablet 75 mg (3 x 25 mg) PO DAILY #90 tabs 03/14/24 Unknown Rx trazodone 50 mg tablet 50 mg PO QHS PRN insomnia #10 tabs 06/28/24 Unknown Rx Allergy/AdvReac Type Severity Reaction Status Date / Time Penicillins Allergy Other Verified 04/30/24 12:43 bupropion HCl (From AdvReac Depression Verified 04/30/24 12:43 Wellbutrin) Family History Aunt Breast cancer Thyroid disorder Father Cancer Grandfather Cancer Mother Diabetes Hypertension Grandmother Myocardial infarction Heart disease Hypertension Cancer Hypercholesterolemia Other Cerebral aneurysm Surgical History Tubal ligation status History of endometrial ablation History of tubal ligation S/P skin cancer resection H/O heart artery stent bladder sling History of heart surgery Social History Smoking Status: Current every day smoker tobacco type: cigarettes Tobacco: How many years used: 26 Electronic Cigarette Use: not used second hand exposure: Yes alcohol intake: current alcohol intake frequency: 3 or more drinks per day Alcohol type: beer, wine and other details: Recent heavy hard liquor intake, prior intermittent beer intake, 1- 3/time. substance use type: former substance user and marijuana what type of physical activity do you participate in: walking, bicycling and other details: LEG LIFTS frequency: daily sharon/rastafari: None seatbelt use: always ROS ROS ED Constitutional Constitutional ED: Denies chills or fever(s) Eyes Eyes: Denies change in vision or diplopia ENT ENT ED: Denies sore throat Cardiovascular Cardiovascular: Reports palpitations and racing heartbeat; Denies chest pain Respiratory/Chest Respiratory/Chest: Denies cough or dyspnea Gastrointestinal Gastrointestinal: Reports abdominal pain, nausea and vomiting; Denies diarrhea Genitourinary Genitourinary ED: Denies dysuria Musculoskeletal Musculoskeletal: Reports myalgias Integumentary Denies rash Neurologic Neurologic: Reports headache(s) Psychiatric Psychiatric: Reports anxiety and depression Hematologic/Lymphatic Hematologic/Lymphatic: Denies easy bleeding or easy bruising EXAM Physical Exam Const Vital Signs: 07/05/24 23:55 07/05/24 23:56 07/06/24 00:07 Temperature 97.9 F 97.8 F Temperature Source Oral Oral Pulse Rate 112 H 99 108 H Respiratory Rate 23 H 15 20 H Blood Pressure 172/102 H 149/133 H 172/102 H Blood Pressure Mean 125 138 125 Blood Pressure Source Monitor Blood Pressure Position Semi-Fowlers Blood Pressure Location Right Arm Pulse Ox 98 94 97 Oxygen Delivery Method Room Air Room Air 07/06/24 00:42 07/06/24 00:45 07/06/24 01:00 Temperature Temperature Source Pulse Rate 112 H Respiratory Rate 21 H Blood Pressure Blood Pressure Mean Blood Pressure Source Blood Pressure Position Blood Pressure Location Pulse Ox 95 97 96 Oxygen Delivery Method 07/06/24 01:19 07/06/24 01:30 07/06/24 01:40 Temperature Temperature Source Pulse Rate 122 H 118 H Respiratory Rate 27 H 24 H Blood Pressure 152/93 H Blood Pressure Mean 109 Blood Pressure Source Blood Pressure Position Blood Pressure Location Pulse Ox 97 97 97 Oxygen Delivery Method 07/06/24 01:45 07/06/24 02:00 07/06/24 02:06 Temperature 97.8 F Temperature Source Pulse Rate 115 H 117 H 118 H Respiratory Rate 20 H 21 H 24 H Blood Pressure 150/110 H 156/88 H 156/88 H Blood Pressure Mean 121 107 110 Blood Pressure Source Blood Pressure Position Blood Pressure Location Pulse Ox 98 97 97 Oxygen Delivery Method Room Air 07/06/24 02:15 07/06/24 02:30 07/06/24 02:45 Temperature Temperature Source Pulse Rate 118 H 117 H Respiratory Rate 21 H 17 Blood Pressure 153/97 H 139/86 H 156/91 H Blood Pressure Mean 113 101 110 Blood Pressure Source Blood Pressure Position Blood Pressure Location Pulse Ox 96 97 Oxygen Delivery Method Positive well nourished, well developed and obese General Appearance ED: well developed; Negative for pallor Nutritional Appearance: obese HEENT HEENT Narrative: No tongue or lip swelling no oral lesions no airway edema or compromise No tongue or cheek biting to suggest recent seizure activity No secondary findings in the posterior pharynx to suggest infection Eyes PERRL and EOMs intact bilaterally General Eye ED: Negative for scleral icterus Neck supple Neck Narrative: No nuchal rigidity or meningeal signs noted Resp normal respiratory effort and clear to auscultation bilaterally Cardio regular rhythm Rate: tachycardic and other Other Details: Tachycardic rate with regular rhythm Radial and carotid pulses are equal and symmetric GI non-distended and no masses GI Narrative: Soft and nondistended with hyperactive bowel sounds. There is mild diffuse pain with palpation. No voluntary guarding or rigidity or pulsatile mass. Auscultation: hyperactive bowel sounds Palpation: soft Extremity normal to inspection Extremity Narrative: No asymmetric edema no pitting edema negative Homans' sign bilaterally Neuro oriented x3, CN's II-XII intact bilaterally and no sensory deficits noted Sensorium / Orientation: alert Motor Exam: strength 5/5 throughout Psych Mood & Affect: anxious and tearful Skin no rashes or lesions noted General Skin Exam: Negative for jaundice or pallor MDM MDM MDM Narrative Medical decision making narrative: Patient arrived to the ER hypertensive and tachycardic but afebrile. She reported a longstanding history of alcohol abuse without alcohol for the last 24 hours. Exam is consistent with alcohol withdrawal. However as there is concern for acute kidney injury or electrolyte abnormality or potential pancreatitis based on her history of alcohol abuse and report of abdominal pain I did elect to perform basic laboratory studies. Her abdomen was soft and nonsurgical and she is afebrile and therefore I felt no need for an emergent CT scan. Patient's alcohol level was 12 consistent with her report of not drinking and withdrawal symptoms. Secondary to this she was given phenobarbital and Ativan. The medication did help reduce her symptoms and prevent further withdrawal changes. Her lab work showed hypomagnesemia and hypokalemia consistent with her alcohol use and therefore she was given 4 g of IV magnesium prior to trying and replace the potassium value. Her platelets are low at 37 but chart review reveals that this is a chronic issue for her. As she does not have signs of active bleeding and do not feel the need to replace platelets at this time. The patient is undergoing withdrawals and does have high risk of progressing to delirium tremens. Therefore she will need to be admitted to help bridge the gap from her alcohol withdrawal and undergo rehab therapy as well. She will also need her electrolytes replaced and further monitoring regarding her thrombocytopenia. Therefore the case was discussed with the hospitalist who agrees to accept the patient for further care History & Record Review Discussion w/independent historian: Patient Lab Data Attestation: I reviewed the patient's lab results. Labs: Laboratory Results - last 24 hr 07/06/24 07/06/24 07/06/24 00:02 00:02 01:17 WBC 3.0 L RBC 3.69 L Hgb 12.1 Hct 37.0 MCV 100.3 H MCH 32.8 H MCHC 32.7 RDW Std Deviation 55.7 H RDW Coeff of Dixie 15.0 H Plt Count 37 L* MPV 10.8 Immature Gran % (Auto) 0.700 Neut % (Auto) 80.9 H Lymph % (Auto) 12.4 L Mcdonald % (Auto) 5.7 Eos % (Auto) 0.0 Baso % (Auto) 0.3 Absolute Neuts (auto) 2.4 Absolute Lymphs (auto) 0.37 L Nucleated RBC % 0 Differential Comment SCANNED Diff Path Review May foll Platelet Estimate MKD DEC Sodium 141 Potassium 2.7 L* Chloride 101 Carbon Dioxide 17.0 L Anion Gap 23 H BUN 4 L Creatinine 0.82 Estim Creat Clear Calc 78.48 Est GFR (MDRD) Af Amer 93 Est GFR (MDRD) Non-Af 77 BUN/Creatinine Ratio 4.8 L Glucose 147 H Calcium 9.3 Magnesium 1.1 L Iron 243 H TIBC 448 Iron Saturation 54.2 Ferritin 93 Total Bilirubin 2.40 H Direct Bilirubin 0.86 H AST 122 H ALT 56 Alkaline Phosphatase 119 H Total Protein 8.1 Albumin 3.9 Globulin 4.2 Lipase 17 Cancelled Folate 2.90 L TSH 2.820 Urine Opiates Screen NEGATIVE Urine Methadone Screen NEGATIVE Ur Barbiturates Screen NEGATIVE Ur Phencyclidine Scrn NEGATIVE Ur Amphetamines Screen NEGATIVE MDMA (Ecstasy) Screen NEGATIVE U Benzodiazepines Scrn NEGATIVE Urine Cocaine Screen NEGATIVE U Cannabinoids Screen POSITIVE H Ur Drug Screen Comment Ethyl Alcohol 12.0 Management Discussion w/another healthcare provider: Hospitalist Discharge Plan Dx/Rx/DC Orders Clinical Impression: Alcohol abuse, Hypertension, Alcohol withdrawal, Thrombocytopenia, Hypomagnesemia, Acute hypokalemia Disposition Disposition: Acute Care [facility] Discharge Date/Time: 07/06/24 03:44
--- NOTE | 2024-07-06 03:16 | CT_ITS ---
EXAM: CT Abdomen And Pelvis W/O Contrast Injection HISTORY: Intractable N/V. Evaluate for pancreatitis. TECHNIQUE: Routine protocol CT abdomen and pelvis. IV Contrast: None.. Oral contrast: None. RADIATION DOSAGE (If Supplied By Facility): CTDIvol = ( 7.87 ) mGy, DLP = ( 391.46 ) mGycm Individualized dose optimization techniques were used for this CT. COMPARISON: CT abdomen pelvis 03/11/2024. LIMITATIONS: None. FINDINGS: LOWER CHEST: Included lung bases are clear. Coronary artery calcifications are noted. Small hiatal hernia. LIVER: Enlarged. Heterogeneous. Fatty infiltration. Nodular contour. GALLBLADDER AND BILIARY TREE: Small gallstones in the gallbladder. PANCREAS: Calcifications in the head and uncinate process. No definite adjacent inflammatory changes. No fluid collections.. SPLEEN: Grossly unremarkable. ADRENAL GLANDS: Grossly unremarkable. KIDNEYS AND URETERS: Right kidney with lobulated contour as on the prior. Small calculus in the right kidney. No hydronephrosis. PERITONEUM: No free air. No free fluid. BOWEL: No bowel obstruction. APPENDIX: Visualized and unremarkable. No evidence of acute appendicitis. VESSELS: Abdominal aorta is normal caliber. REPRODUCTIVE ORGANS: Grossly unremarkable. Essure microinserts noted. URINARY BLADDER: Grossly unremarkable. ABDOMINAL WALL: Unremarkable. BONES: No acute abnormalities. Degenerative changes lumbar spine with minimal anterolisthesis at L4-5 CT/Abdomen/Pelvis without Cont IMPRESSION: Hepatomegaly with steatosis. Probable cirrhosis. Changes of chronic pancreatitis. No definite evidence of acute pancreatitis. Cholelithiasis.. Electronically Signed: Shiela Hickman MD at 5:31 EST ,
[2024-07-06 03:41] LABS: Ferritin 93 ng/mL (8-252); Iron 243 ug/dL (50-170); Iron Binding Capacity,Total 448 ug/dL (250-450); PERCENT IRON SATURATION 54.2 % (15.0-55.0)
[2024-07-06] MEDS: 0.9% Saline Lock 10 ML Syringe IV ×2 (05:11→06:50)
[2024-07-06] MEDS: KCL 20MEQ in 0.9% NS 20 MEQ/1,000 ML IV.SOLN. 100 MEQ IV (05:11)
[2024-07-06] MEDS: Scopolamine 1mg/72hr Patch 1 PATCH TD (05:13)
[2024-07-06] MEDS: DiphenhydrAMINE 50 MG/ML Syringe 25 MG IV (05:15)
[2024-07-06] MEDS: Pantoprazole Sodium 40 MG in 0.9% Normal Saline (100mL MB+) 100 ML 330 MG IV (05:17)
[2024-07-06] MEDS: Phenobarbital Sodium 130 MG/ML Vial 100 MG IV (05:27)
[2024-07-06] MEDS: Multivitamins 10 ML in 0.9% Normal Saline (500mL Bag) 500 ML IV (05:47)
[2024-07-06] MEDS: LORazepam 2 MG/ML Syringe IV (06:22)
[2024-07-06] MEDS: Metoprolol Tartrate 5 MG/5 ML Vial 2.5 MG IV (06:50)
[2024-07-06 08:02] LABS: Absolute Lymphocyte Count 0.13 X10^3/uL (0.83-4.51); Absolute Neutrophil Count 3.4 X10^3/uL (2.0-7.7); Eosinophil# 0.01 X10^3/uL; Eosinophils% 0.3 % (0-5); Hematocrit 34.6 % (37-47); Hemoglobin 11.6 g/dL (12.0-15.0); Lymphocyte # 0.13 X10^3/ul (0.83-4.51); Lymphocyte % 3.5 % (19-41); Mean Corp Hgb Conc 33.5 g/dL (32-36); Mean Corpuscular Hgb 33.7 pg (27.0-32.0); Mean Corpuscular Volume 100.6 fL (81-99); Mean Platelet Vol. 11.4 fl (6.2-12.0); Monocyte# 0.18 X10^3/uL; Monocyte% 4.9 % (0-10); NRBC Flagged by Analyzer 0 % (0-5); Neutrophil # 3.35 X10^3/uL (2.7-7.7); Neutrophil % 90.5 % (47-70); POSITIVE COUNT YES; POSITIVE DIFFERENTIAL YES; RBC Distribution Width CV 15.3 % (11.6-14.6); Red Blood Count 3.44 M/mm3 (4.2-5.4); White Blood Count 3.7 K/mm3 (4.4-11.0)
[2024-07-06 08:25] LABS: Platelet Count 31 K/mm3 (150-450)
--- NOTE | 2024-07-06 08:43 | PN.HOSP_ITS ---
Reason for Visit Reason for Visit: Acute alcohol withdrawal Subjective Subjective Patient is a 54-year-old female who presents emergency department at [facility] on 07/06/2024 early in the morning requesting help with acute alcohol drawl. On presentation the patient report her last drink was about 24 hours prior to presentation when she spontaneously decided to stop drinking. She reported on presentation she is drinking at least 3-4 beers daily but when she stopped drinking she became anxious and jittery with tremors. She then developed intractable nausea and vomiting consistent with her previous bouts of alcohol withdrawal so she elected to come into the emergency department for evaluation and treatment. Vital signs on presentation showed a temperature of 97.9, heart rate 112, respiratory rate 23, blood pressure was 172/102 with a repeat of 152/93 and pulse ox was 98% on room air. CBC on presentation showed leukopenia which appears to be chronic and stable next-normal hemoglobin and acute on chronic thrombocytopenia. Chemistry panel revealed markedly low potassium at 2.7 with a carbon dioxide of 17 and anion gap of 23 likely related to alcohol or starvation ketosis LFTs showed hyperbilirubinemia with a bilirubin of 2.4 and consistent with previous liver functions. AST was elevated at 122 with a normal ALT consistent with alcohol consumption. Alk phos was mildly elevated 119. Folic acid level was low at 2.9 and TSH was normal. She had hypomagnesemia with magnesium level of 1.1. Toxicology screen was positive for alcohol level of 12 and marijuana.. Magnesium and potassium was repleted on admission and she was placed on a phenobarbital taper with thiamine and folate as well as supportive medications for alcohol withdrawal. Nausea and vomiting have resolved and now started to diet. Objective Data Objective Data Vital Signs: Vital Signs Temp Pulse Resp BP Pulse Ox O2 Del Method 98.6 F 187 H 18 133/90 H 100 Room Air 07/06/24 04:21 07/06/24 06:50 07/06/24 04:21 07/06/24 04:21 07/06/24 04:21 07/06/24 04:21 Oxygen Delivery Method Room Air Weight: 74.1 kg Body Mass Index (BMI) 28.0 Intake & Output: Intake and Output for Last 24 Hours 07/04/24 07/05/24 07/06/24 23:59 23:59 23:59 Intake Total 1720 / 1720 Balance 1720 / 1720 Lab / Micro Data 07/06/24 06:30 07/06/24 06:30 Labs: Laboratory Results - last 24 hr 07/06/24 00:02: WBC 3.0 L, RBC 3.69 L, Hgb 12.1, Hct 37.0, MCV 100.3 H, MCH 32.8 H, MCHC 32.7, RDW Std Deviation 55.7 H, RDW Coeff of Dixie 15.0 H, Plt Count 37 L* , MPV 10.8, Immature Gran % (Auto) 0.700, Neut % (Auto) 80.9 H, Lymph % (Auto) 12.4 L, [place] % (Auto) 5.7, Eos % (Auto) 0.0, Baso % (Auto) 0.3, Absolute Neuts (auto) 2.4, Absolute Lymphs (auto) 0.37 L, Nucleated RBC % 0, Differential Comment SCANNED, Diff Path Review October, Platelet Estimate MKD DEC, Sodium 141, Potassium 2.7 L*, Chloride 101, Carbon Dioxide 17.0 L, Anion Gap 23 H, BUN 4 L, Creatinine 0.82, Estim Creat Clear Calc 78.48, Est GFR (MDRD) Af Amer 93, Est GFR (MDRD) Non-Af 77, BUN/Creatinine Ratio 4.8 L, Glucose 147 H, Calcium 9.3, Magnesium 1.1 L, Iron 243 H, TIBC 448, Iron Saturation 54.2, Ferritin 93, T otal Bilirubin 2.40 H, Direct Bilirubin 0.86 H, AST 122 H, ALT 56, Alkaline Phosphatase 119 H, Total Protein 8.1, Albumin 3.9, Globulin 4.2, Lipase 17 07/06/24 00:02: Lipase Cancelled, Folate 2.90 L, TSH 2.820, Ethyl Alcohol 12.0 07/06/24 01:17: Urine Opiates Screen NEGATIVE, Urine Methadone Screen NEGATIVE, Ur Barbiturates Screen NEGATIVE, Ur Phencyclidine Scrn NEGATIVE, Ur Amphetamines Screen NEGATIVE, MDMA (Ecstasy) Screen NEGATIVE, U Benzodiazepines Scrn NEGATIVE, Urine Cocaine Screen NEGATIVE, U Cannabinoids Screen POSITIVE H, Ur Drug Screen Comment 07/06/24 06:30: WBC 3.7 L, RBC 3.44 L, Hgb 11.6 L, Hct 34.6 L, MCV 100.6 H, MCH 33.7 H, MCHC 33.5, RDW Std Deviation 56.0 H, RDW Coeff of Dixie 15.3 H, MPV 11.4, Immature Gran % (Auto) 0.800, Neut % (Auto) 90.5 H, Lymph % (Auto) 3.5 L, [place] % (Auto) 4.9, Eos % (Auto) 0.3, Baso % (Auto) 0.0, Absolute Neuts (auto) 3.4, A bsolute Lymphs (auto) 0.13 L, Nucleated RBC % 0, Blood Type A POSITIVE, Antibody Screen NEGATIVE Radiography Diagnostic Testing: Radiology Impression Abdomen/Pelvis CT 07/06/24 03:16 IMPRESSION: Hepatomegaly with steatosis. Probable cirrhosis. Changes of chronic pancreatitis. No definite evidence of acute pancreatitis. Cholelithiasis.. Electronically Signed: Shiela Hickman MD at 5:31 EST , Assessment & Plan Assessment/Plan (1) Acute hypokalemia: (2) Hypomagnesemia: (3) Leukopenia: QUALIFIERS: Leukopenia type: unspecified Qualified Code(s): D 72.819 - Decreased white blood cell count, unspecified (4) Thrombocytopenia: (5) Alcohol withdrawal: QUALIFIERS: Complication of substance-induced condition: with unspecified complication Qualified Code(s): F10.939 - Alcohol use, unspecified with withdrawal, unspecified (6) Alcoholic ketoacidosis: (7) Alcohol abuse: (8) Acquired hyperbilirubinemia: PLAN: Plan Acute alcohol withdrawal -Patient's last admission was in March 2024 here -Still difficulty with sobriety -Will transition from IV phenobarb to oral phenobarb taper -Continue thiamine and folate -As needed antiemetics orally -Supportive medication for symptom management associated with withdrawal -Consult 180 for assistance with discharge planning Alcoholic/starvation ketosis -Should resolve with abstinence and oral intake -Lab remains pending Thrombocytopenia-acute on chronic -Baseline has been between 70-80,000 in the past -Already 37,000 on presentation -Suspect baseline thrombocytopenia is related to cirrhosis and/or marrow toxicity due to ongoing alcohol use -Recommend alcohol cessation -Number should improve slowly at baseline if it is related to alcohol toxicity to bone marrow -Abdominal ultrasound does not show any splenomegaly at this time but is consistent with hepatomegaly and possible cirrhosis -May need further workup if does not trend up with abstinence -A.m. platelet count is pending Acute on chronic hyperbilirubinemia -Likely related to alcohol use -Should trend down with abstinence Hypomagnesemia -Replace -Repeat is pending Hypokalemia -Replace -Repeat is pending Tachycardia -Likely related to alcohol withdrawal -Will continue to monitor Chronic leukopenia -White count is 3.0 consistent with her baseline -Likely related to marrow toxicity with alcohol use -If patient can remain abstinent and does not trend up may need further workup History of epilepsy -Continue zonisamide History of bipolar disorder -Continue trazodone -Continue escitalopram -Previous suicide attempt Essential hypertension -Continue home lisinopril -Restart home Aldactone CAD -Noted history of PCI in 2017 -No current issues -Patient is not on any chronic medications for this History of migraine without aura -No current issues GERD -Has been untreated -Continue IV Protonix for now and then transition to oral Protonix next-patient has been on daily NSAIDs as needed chronic low back pain -Hold NSAIDs DVT prophylaxis -Low risk -Chemoprophylaxis not indicated -SCDs were ordered on admission -Encourage frequent and early ambulation CODE STATUS -Full code as verified on admission
[2024-07-06 09:02] LABS: HIV - WCH Non-Reactive (Nonreactive); Vitamin B12 962 pg/mL (211-911)
[2024-07-06 09:03] LABS: AST(SGOT) 121 U/L (15-37); Alanine Aminotransfer ALT/SGPT 55 U/L (13-56); Albumin, Serum 3.7 g/dL (3.2-5.0); Alkaline Phosphatase 110 U/L (45-117); Anion Gap 20 (5-15); BUN 3 mg/dL (7-18); BUN/Creat Ratio 3.2 RATIO (10-20); Calcium,Total 8.8 mg/dL (8.5-10.1); Chloride 103 mmol/L (98-107); Creatinine, Serum 0.93 mg/dL (0.55-1.02); EST Glomerular Filtration Rate 67 mL/min (>60); Est Glom Filt Rate - Afr Amer 81 mL/min (>60); Estimated Creatinine Clearance 68.98 ml/min; Globulin 3.8 g/dL (2.2-4.2); Glucose 119 mg/dL (74-106); Magnesium 2.2 mg/dL (1.6-2.6); Phosphorus 2.8 mg/dL (2.5-4.9); Potassium 2.8 mmol/L (3.5-5.1); Protein, Total 7.5 g/dL (6.4-8.2); Sodium Level 140 mmol/L (136-145)
[2024-07-06] MEDS: Lisinopril 5 MG Tablet PO (09:17)
[2024-07-06] MEDS: Thiamine Hydrochloride 100 MG Tablet PO (09:17)
[2024-07-06] MEDS: Spironolactone 25 MG Tablet 75 MG PO (09:27)
[2024-07-06] MEDS: Phenobarbital 32.4 MG Tablet PO ×4 (09:27→22:09)
[2024-07-06] MEDS: Folic Acid 1 MG in 0.9% Normal Saline (50mL Bag) 50 ML 200 MG IV (09:27)
[2024-07-06] MEDS: ZONISAMIDE 100 MG CAPSULE PO (09:28)
[2024-07-06 09:55] LABS: Platelet Estimate MKD DEC (ADEQ)
[2024-07-06] MEDS: Potassium Chloride Oral Tablet 20 MEQ 40 MEQ PO ×2 (11:21→17:42)
[2024-07-06] MEDS: Dextrose 5%/0.9% NaCl 1,000 ML 75 ML IV (11:21)
[2024-07-06] MEDS: Escitalopram Oxalate 20 MG Tablet PO (11:21)
[2024-07-06 13:50] LABS: Anion Gap 10 (5-15); BUN 4 mg/dL (7-18); BUN/Creat Ratio 4.9 RATIO (10-20); Calcium,Total 8.6 mg/dL (8.5-10.1); Chloride 106 mmol/L (98-107); Creatinine, Serum 0.81 mg/dL (0.55-1.02); EST Glomerular Filtration Rate 78 mL/min (>60); Est Glom Filt Rate - Afr Amer 95 mL/min (>60); Glucose 143 mg/dL (74-106); Potassium 3.2 mmol/L (3.5-5.1); Sodium Level 141 mmol/L (136-145)
--- NOTE | 2024-07-06 15:40 | CHAPLAIN ---
Type of Pastoral Visit ___ Initial Visit ___ Follow-up Visit ___ On-call Visit ___ General Patient Visit ___ Spiritual Assessment ___ Family Conference ___ Bereavement ___ Rapid Response ___ Code Blue ___ Other (describe below) Pastoral Care Referral From ___ Patient ___ Family ___ Nurse ___ Physician ___ Professional Employer Consultant ___ Crusher Tender ___ Other (describe below) Sacrament/Intervention ___ Active listening ___ Anointing ___ Baptist ___ Bereavement ___ Communion ___ Sun exploration ___ ___ Life review ___ Prayer ___ Reconciliation ___ Sacrament of Sick ___ Supportive presence ___ Wedding ___ Other (describe below) Pastoral Comments patient is sleeping but nurse that went into room asked her if a visit now would be okay; pt asks for a visit tomorrow as she is trying to sleep now
[2024-07-06] MEDS: ZONISAMIDE 100 MG CAPSULE 200 MG PO (22:08)
[2024-07-07] VITALS (9 sets, daily range): BP systolic 93–136; BP diastolic 60–101; PULSE 99–136; RESP 15–30; TEMP 36.8–38.2; O2SAT 95–99; BMI 30.5
[2024-07-07] MEDS: Phenobarbital 32.4 MG Tablet PO ×6 (02:15→20:16)
[2024-07-07] MEDS: Gabapentin 300 MG Capsule PO ×2 (05:20→20:17)
[2024-07-07] MEDS: LORazepam 2 MG/ML Syringe 1 MG IV (06:46)
[2024-07-07] MEDS: hydrOXYzine PAM 25 MG Capsule 50 MG PO ×2 (08:25→23:59)
[2024-07-07] MEDS: Escitalopram Oxalate 20 MG Tablet PO (08:32)
[2024-07-07] MEDS: Thiamine Hydrochloride 100 MG Tablet PO (08:32)
[2024-07-07] MEDS: ZONISAMIDE 100 MG CAPSULE PO (08:32)
--- NOTE | 2024-07-07 09:15 | PCM.PN.HOSP ---
Reason for Visit Reason for Visit: Alcohol detox Subjective Subjective Patient developed some delirium, hallucinations and agitation today. Had to be given 2 mg of IV push Ativan. Will continue phenobarbital taper. Currently oriented to self and place but otherwise confused. Somnolent now. Objective Data Objective Data Vital Signs: Vital Signs Temp Pulse Resp BP Pulse Ox O2 Del Method 100.7 F H 136 H 20 H 105/72 97 Room Air 07/07/24 08:23 07/07/24 08:23 07/07/24 08:23 07/07/24 08:23 07/07/24 08:23 07/07/24 08:23 Oxygen Delivery Method Room Air Weight: 80.7 kg Body Mass Index (BMI) 30.5 Intake & Output: Intake and Output for Last 24 Hours 07/05/24 07/06/24 07/07/24 23:59 23:59 23:59 Intake Total 3655.2 / 3655.2 1000 / 1000 Balance 3655.2 / 3655.2 1000 / 1000 Lab / Micro Data 07/07/24 09:25 07/07/24 09:25 Labs: Laboratory Results - last 24 hr 07/06/24 06:30: Plt Count 31 L*, Diff Path Review October, Platelet Estimate MKD 07/06/24 13:23: Sodium 141, Potassium 3.2 L, Chloride 106, Carbon Dioxide 25.0, Anion Gap 10, BUN 4 L, Creatinine 0.81, Estim Creat Clear Calc 79.20, Est GFR (MDRD) Af Amer 95, Est GFR (MDRD) Non-Af 78, BUN/Creatinine Ratio 4.9 L, Glucose 143 H, Calcium 8.6 Physical Exam Const no apparent distress and well nourished; Negative for healthy appearing Constitutional Narrative: Middle-aged, white female, lying in bed somnolent but does awaken to tactile and verbal stimuli, oriented to self and place but otherwise confused HEENT head/scalp atraumatic and moist oral mucous membranes HEENT Narrative: Mallampati is 3, no thrush Head and Scalp: normocephalic Eyes conjunctivae normal Eyes Narrative: No scleral icterus Neck supple Neck Narrative: Trachea midline, no thyroid enlargement Resp normal respiratory effort, no retractions, no use of accessory muscles and clear to auscultation bilaterally Resp Narrative: Diminished but clear Auscultation: Negative for rales, rhonchi or wheezes Cardio regular rhythm, S1 normal heart sound, S2 normal heart sound, no murmurs, no rub, no gallops and no clicks Cardio Narrative: Tachycardic GI normal to inspection, nondistended, normoactive bowel sounds, soft to palpation and non-tender Extremity no clubbing, cyanosis or edema Extremity Narrative: 2+ pedal and radial pulses Skin skin turgor normal, no jaundice, no petechiae and no mottling Neuro No oriented x3, moves all extremities and no focal motor deficits Neuro Narrative: Speech is intermittently nonsense however patient will follow commands and try to answer questions Sensorium / Orientation: oriented to person and oriented to place Psych Psych Narrative: Confused and delirious Assessment & Plan Assessment/Plan (1) Delirium tremens: (2) Acute hypokalemia: (3) Hypomagnesemia: (4) Thrombocytopenia: (5) Fever: PLAN: Plan Acute alcohol withdrawal with DTs -Patient's last admission was in March 2024 here -Continue phenobarbital -Continue thiamine and folate -As needed antiemetics orally -Supportive medication for symptom management associated with withdrawal -180 is following and will assess more extensively when she is less confused Toxic/metabolic encephalopathy -Due to acute alcohol withdrawal -Should slowly improve -Continue to monitor Alcoholic/starvation ketosis -Resolved Thrombocytopenia-acute on chronic -Baseline has been between 70-80,000 in the past -Already 37,000 on presentation--> down to 28,000 today -Patient is positive volume so some of this could be dilutional -Check coags -Suspect baseline thrombocytopenia is related to cirrhosis and/or marrow toxicity due to ongoing alcohol use -Recommend alcohol cessation -Number should improve slowly at baseline if it is related to alcohol toxicity to bone marrow -Abdominal ultrasound does not show any splenomegaly at this time but is consistent with hepatomegaly and possible cirrhosis -Repeat lab in a.m. Fever -Mild at 100.7 -Etiology is unclear -UA is pending -Patient remains on room air -COVID/flu/RSV/respiratory viral panel all negative -As needed Tylenol for fever Acute on chronic hyperbilirubinemia -Likely related to alcohol use -Should trend down with abstinence Hypomagnesemia -Resolved Hypokalemia -Resolved Tachycardia -Remains tachycardic and still likely related to withdrawal however with drop in hemoglobin we will repeat hemoglobin to assess for stability Chronic leukopenia -White count is 3.0 consistent with her baseline -Likely related to marrow toxicity with alcohol use -If patient can remain abstinent and does not trend up may need further workup Macrocytic anemia -Down to 9.6 today but fairly hemodiluted--> was 11.6 on presentation -Check iron studies -B12 is normal -Folic acid was low and she is on folate -Repeat hemoglobin now with drop -If has drop further may need to get a CT abdomen pelvis to make sure she has not developed the retroperitoneal hematoma related to her thrombocytopenia -Repeat in a.m. -No obvious signs of bleeding History of epilepsy -Continue zonisamide History of bipolar disorder -Continue trazodone -Continue escitalopram -Previous suicide attempt Essential hypertension -Continue home lisinopril -Restart home Aldactone CAD -Noted history of PCI in 2017 -No current issues -Patient is not on any chronic medications for this History of migraine without aura -No current issues GERD -Has been untreated -Continue IV Protonix twice daily with drop in hemoglobin for now and then transition to oral Protonix next-patient has been on daily NSAIDs as needed chronic low back pain -Hold NSAIDs DVT prophylaxis -Low risk -Chemoprophylaxis not indicated -SCDs were ordered on admission -Encourage frequent and early ambulation CODE STATUS -Full code as verified on admission Charges/Coding Visit Charges Inpatient E&M: 21850 [facility] L[facility]
[2024-07-07 10:01] LABS: Anion Gap 11 (5-15); BUN 4 mg/dL (7-18); BUN/Creat Ratio 4.3 RATIO (10-20); Calcium,Total 8.5 mg/dL (8.5-10.1); Chloride 104 mmol/L (98-107); Creatinine, Serum 0.94 mg/dL (0.55-1.02); EST Glomerular Filtration Rate 66 mL/min (>60); Est Glom Filt Rate - Afr Amer 80 mL/min (>60); Estimated Creatinine Clearance 71.13 ml/min; Glucose 129 mg/dL (74-106); Potassium 3.5 mmol/L (3.5-5.1); Sodium Level 136 mmol/L (136-145)
[2024-07-07 10:08] LABS: Absolute Neutrophil Count 3.1 X10^3/uL (2.0-7.7); Basophil# 0.01 X10^3/uL; Basophil% 0.2 % (0-1); Hemoglobin 9.6 g/dL (12.0-15.0); Lymphocyte % 16.5 % (19-41); Mean Corpuscular Hgb 32.4 pg (27.0-32.0); Mean Corpuscular Volume 101.4 fL (81-99); Mean Platelet Vol. 11.8 fl (6.2-12.0); Monocyte# 0.42 X10^3/uL; Monocyte% 9.9 % (0-10); NRBC Flagged by Analyzer 0.7 % (0-5); Neutrophil # 3.11 X10^3/uL (2.7-7.7); Neutrophil % 73.2 % (47-70); POSITIVE COUNT YES; Platelet Count 28 K/mm3 (150-450); RBC Distribution Width CV 15.5 % (11.6-14.6); RBC Distribution Width SD 57.6 fl (35.1-43.9); Red Blood Count 2.96 M/mm3 (4.2-5.4); White Blood Count 4.3 K/mm3 (4.4-11.0)
[2024-07-07 10:18] LABS: Differential Indicated SCAN CRITERIA MET
[2024-07-07] MEDS: Folic Acid 1 MG in 0.9% Normal Saline (50mL Bag) 50 ML 200 MG IV (10:21)
[2024-07-07] MEDS: LORazepam 2 MG/ML Syringe IV (10:38)
[2024-07-07 10:59] LABS: Platelet Estimate MOD DEC (ADEQ)
--- NOTE | 2024-07-07 11:22 | ADDICTION ---
Met w pt to complete RAMP assessments. Pt reports she has been drinking whiskey heavily for the past 7 years since her . She reports she has been drinking for many years prior to that with numerous medical complications. Pt reported she has an appointment at [facility] on Jul 14 for outpatient substance use tx.
[2024-07-07] MEDS: Pantoprazole Sodium 40 MG in 0.9% Normal Saline (100mL MB+) 100 ML 330 MG IV ×2 (11:43→20:16)
[2024-07-07 14:23] LABS: Pathologist Review Reviewed
--- NOTE | 2024-07-07 15:25 | CHAPLAIN ---
Type of Pastoral Visit ___ Initial Visit ___ Follow-up Visit ___ On-call Visit ___ General Patient Visit ___ Spiritual Assessment ___ Family Conference ___ Bereavement ___ Rapid Response ___ Code Blue _x__ Other (describe below) Pastoral Care Referral From ___ Patient ___ Family ___ Nurse ___ Physician ___ Manager Water Wastewater ___ Hanging Flags Decorator ___ Other (describe below) Sacrament/Intervention ___ Active listening ___ Anointing ___ Sikh ___ Bereavement ___ Communion ___ Sun exploration ___ ___ Life review ___ Prayer ___ Reconciliation ___ Sacrament of Sick ___ Supportive presence ___ Wedding _x__ Other (describe below) Pastoral Comments first two attempts today and this construction or leak gang laborer found the patient sound asleep in her bed with bed pads up around her; on third attempt the room had a sign for isolation droplets precautions; was unable to complete the visit today
[2024-07-07 16:23] LABS: International Normalized Ratio 1.6; Prothrombin Time (Protime)PT. 19.4 SECONDS (11.7-14.9)
[2024-07-07 17:01] LABS: Hemoglobin 10.6 g/dL (12.0-15.0)
[2024-07-07] MEDS: traZODone 50 MG Tablet PO (20:17)
[2024-07-07] MEDS: ZONISAMIDE 100 MG CAPSULE 200 MG PO (20:17)
[2024-07-07] MEDS: MELATONIN 3 MG TABLET PO (23:59)
[2024-07-08 01:16] VITALS: BMI 28.3
[2024-07-08 03:37] VITALS: BP 98/81; PULSE 115; RESP 18; TEMP 36.4; O2SAT 95
[2024-07-08] MEDS: hydrOXYzine PAM 25 MG Capsule 50 MG PO (03:45)
[2024-07-08] MEDS: Phenobarbital 32.4 MG Tablet PO ×6 (03:45→23:22)
[2024-07-08 07:21] VITALS: O2SAT 96
[2024-07-08 07:24] LABS: Absolute Lymphocyte Count 1.16 X10^3/uL (0.83-4.51); Absolute Neutrophil Count 2.4 X10^3/uL (2.0-7.7); Basophil# 0.02 X10^3/uL; Basophil% 0.5 % (0-1); Eosinophil# 0.02 X10^3/uL; Eosinophils% 0.5 % (0-5); Hematocrit 31.4 % (37-47); Hemoglobin 10.4 g/dL (12.0-15.0); Lymphocyte # 1.16 X10^3/ul (0.83-4.51); Mean Corp Hgb Conc 33.1 g/dL (32-36); Mean Corpuscular Hgb 33.3 pg (27.0-32.0); Mean Corpuscular Volume 100.6 fL (81-99); Mean Platelet Vol. 12.1 fl (6.2-12.0); Monocyte# 0.56 X10^3/uL; Monocyte% 13.5 % (0-10); NRBC Flagged by Analyzer 0.5 % (0-5); Neutrophil # 2.36 X10^3/uL (2.7-7.7); Neutrophil % 56.8 % (47-70); POSITIVE COUNT YES; Platelet Count 29 K/mm3 (150-450); RBC Distribution Width CV 15.7 % (11.6-14.6); RBC Distribution Width SD 57.4 fl (35.1-43.9); Red Blood Count 3.12 M/mm3 (4.2-5.4); White Blood Count 4.2 K/mm3 (4.4-11.0)
[2024-07-08 07:50] LABS: Differential Indicated SCAN CRITERIA MET
[2024-07-08 08:00] LABS: Anion Gap 8 (5-15); BUN 5 mg/dL (7-18); BUN/Creat Ratio 6.4 RATIO (10-20); Calcium,Total 8.3 mg/dL (8.5-10.1); Chloride 105 mmol/L (98-107); Creatinine, Serum 0.78 mg/dL (0.55-1.02); EST Glomerular Filtration Rate 82 mL/min (>60); Est Glom Filt Rate - Afr Amer 99 mL/min (>60); Estimated Creatinine Clearance 82.67 ml/min; Ferritin 103 ng/mL (8-252); Glucose 93 mg/dL (74-106); Iron 48 ug/dL (50-170); Iron Binding Capacity,Total 397 ug/dL (250-450); Magnesium 1.6 mg/dL (1.6-2.6); PERCENT IRON SATURATION 12.1 % (15.0-55.0); Potassium 2.7 mmol/L (3.5-5.1); Sodium Level 136 mmol/L (136-145)
[2024-07-08 08:55] VITALS: BP 103/71; PULSE 97; RESP 18; TEMP 37.5; O2SAT 96
[2024-07-08] MEDS: Thiamine Hydrochloride 100 MG Tablet PO (08:57)
[2024-07-08] MEDS: ZONISAMIDE 100 MG CAPSULE PO (08:58)
[2024-07-08] MEDS: Escitalopram Oxalate 20 MG Tablet PO (08:58)
[2024-07-08 09:10] LABS: Platelet Estimate MKD DEC (ADEQ)
[2024-07-08] MEDS: Folic Acid 1 MG in 0.9% Normal Saline (50mL Bag) 50 ML 200 MG IV (10:30)
[2024-07-08] MEDS: Pantoprazole Sodium 40 MG in 0.9% Normal Saline (100mL MB+) 100 ML 330 MG IV ×2 (10:34→23:18)
--- NOTE | 2024-07-08 12:21 | CHAPLAIN ---
Type of Pastoral Visit ___ Initial Visit ___ Follow-up Visit ___ On-call Visit ___ General Patient Visit ___ Spiritual Assessment ___ Family Conference ___ Bereavement ___ Rapid Response ___ Code Blue ___ Other (describe below) Pastoral Care Referral From ___ Patient ___ Family ___ Nurse ___ Physician ___ Supervising Law Enforcement Analyst ___ Healthcare Business Analyst ___ Other (describe below) Sacrament/Intervention ___ Active listening ___ Anointing ___ Amish ___ Bereavement ___ Communion ___ Sun exploration ___ ___ Life review ___ Prayer ___ Reconciliation ___ Sacrament of Sick ___ Supportive presence ___ Wedding ___ Other (describe below) Pastoral Comments checked on patient twice today and she was sound asleep, snoring and did not awaken to her name
--- NOTE | 2024-07-08 12:56 | CASEMGMT ---
SW is aware of SDOH screen for patient. However, patient has been going through withdrawal and is not coherent enough to converse with. SW will continue to follow and see patient when she is more alert and oriented. Purnima Urbano EXTRUSION PROCESS OPERATOR MARY
--- NOTE | 2024-07-08 13:39 | PN.HOSP_ITS ---
Reason for Visit Reason for Visit: Diagnoses Thrombocytopenia, unspecified (07/06/24) Decreased white blood cell count, unspecified (07/06/24) Other disorders of bilirubin metabolism (07/06/24) Hypomagnesemia (07/06/24) Other acidosis (07/06/24) Hypokalemia (07/06/24) Alcohol abuse, uncomplicated (07/06/24) Alcohol use, unspecified with withdrawal delirium (07/06/24) Alcohol use, unspecified with withdrawal, unspecified (07/06/24) Cannabis abuse, uncomplicated (07/06/24) Bipolar disorder, current episode mixed, severe, without psychotic features (07/06/24) Epilepsy, unspecified, not intractable, without status epilepticus (07/06/24) Nausea with vomiting, unspecified (07/06/24) Fever, unspecified (07/06/24) Tobacco use (07/06/24) Subjective Subjective Per nursing patient is waking up and eating breakfast and taking her meds but still fairly somnolent intermittently related to the medications for her alcohol withdrawal Objective Data Objective Data Vital Signs: Vital Signs Temp Pulse Resp BP Pulse Ox O2 Del Method 99.5 F H 97 18 103/71 96 Room Air 07/08/24 08:55 07/08/24 08:55 07/08/24 08:55 07/08/24 08:55 07/08/24 08:55 07/08/24 08:55 Oxygen Delivery Method Room Air Weight: 74.9 kg Body Mass Index (BMI) 28.3 Intake & Output: Intake and Output for Last 24 Hours 07/06/24 07/07/24 07/08/24 23:59 23:59 23:59 Intake Total 3655.2 / 3655.2 1270.2 / 1410.2 500.2 / 500.2 Balance 3655.2 / 3655.2 1270.2 / 1410.2 500.2 / 500.2 Lab / Micro Data 07/08/24 06:08 07/08/24 06:08 Labs: Laboratory Results - last 24 hr 07/06/24 00:02: Diff Path Review Reviewed 07/06/24 06:30: Diff Path Review Reviewed 07/07/24 09:25: Hgb 10.6 L 07/07/24 16:04: PT 19.4 H, INR 1.6 07/08/24 06:08: WBC 4.2 L, RBC 3.12 L, Hgb 10.4 L, Hct 31.4 L, MCV 100.6 H, MCH 33.3 H, MCHC 33.1, RDW Std Deviation 57.4 H, RDW Coeff of Dixie 15.7 H, Plt Count 29 L*, MPV 12.1 H, Immature Gran % (Auto) 0.700, Neut % (Auto) 56.8, Lymph % (Auto) 28.0, [place] % (Auto) 13.5 H, Eos % (Auto) 0.5, Baso % (Auto) 0.5, Absolute Neuts (auto) 2.4, Absolute Lymphs (auto) 1.16, Nucleated RBC % 0.5, Platelet Estimate MKD DEC, APTT 32.0, Sodium 136, Potassium 2.7 L*, Chloride 105, Carbon Dioxide 24.0, Anion Gap 8, BUN 5 L, Creatinine 0.78, Estim Creat Clear Calc 82.67, Est GFR (MDRD) Af Amer 99, Est GFR (MDRD) Non-Af 82, BUN/Creatinine Ratio 6.4 L, Glucose 93, Calcium 8.3 L, Phosphorus 1.0 L*, Magnesium 1.6, Iron 48 L, TIBC 397, Iron Saturation 12.1 L, Ferritin 103 Micro: Microbiology 07/07/24 11:15 Mucosa - Nose Respiratory Panel (PCR) - Final 07/07/24 11:35 Nasal Secretion SARS-CoV-2 Antigen (Rapid) - Final Physical Exam Const no apparent distress, average body habitus and well nourished; Negative for healthy appearing Constitutional Narrative: Middle-aged, white female, sitting up in bed dozing off, has just eaten breakfast but fairly sleepy right now, nursing at bedside HEENT normocephalic and head/scalp atraumatic Resp normal respiratory effort, no retractions, no use of accessory muscles and clear to auscultation bilaterally Resp Narrative: Diminished but clear Auscultation: Negative for rales, rhonchi or wheezes Cardio regular rate, regular rhythm, S1 normal heart sound, S2 normal heart sound, no murmurs, no rub, no gallops and no clicks GI normal to inspection, nondistended, normoactive bowel sounds, soft to palpation and non-tender Extremity no clubbing, cyanosis or edema Extremity Narrative: 2+ pedal and radial pulses Neuro Neuro Narrative: Patient fairly sleepy right now, moves all extremity spontaneously Psych Psych Narrative: Sleepy Mood & Affect: depressed and anxious Assessment & Plan Assessment/Plan (1) Delirium tremens: (2) Acute hypokalemia: (3) Hypomagnesemia: (4) Thrombocytopenia: (5) Fever: PLAN: Plan Acute alcohol withdrawal with DTs -Patient's last admission was in March 2024 here -Continue phenobarbital -Continue thiamine and folate -As needed antiemetics orally -Supportive medication for symptom management associated with withdrawal -180 is following and will assess more extensively when she is less confused Toxic/metabolic encephalopathy -Due to acute alcohol withdrawal -Should slowly improve -Continue to monitor Thrombocytopenia-acute on chronic -Baseline has been between 70-80,000 in the past -Already 37,000 on presentation--> seems to be stabilizing and currently 29,000 today -Slight PTT elevation with normal PTT and slightly elevated INR at 1.6 not indicative of smoldering DIC -Only transfuse for less than 20,000 or spontaneous bleeding -Suspect baseline thrombocytopenia is related to cirrhosis and/or marrow toxicity due to ongoing alcohol use -Recommend alcohol cessation -Number should improve slowly at baseline if it is related to alcohol toxicity to bone marrow -Abdominal ultrasound does not show any splenomegaly at this time but is consistent with hepatomegaly and possible cirrhosis -Repeat lab in a.m. Fever -Now has been afebrile x 24 hours -No further fevers--> continue to monitor -UA is pending -Patient remains on room air -COVID/flu/RSV/respiratory viral panel all negative -As needed Tylenol for fever Acute on chronic hyperbilirubinemia -Likely related to alcohol use -Should trend down with abstinence Hypomagnesemia -Resolved Hypokalemia -2.7 this morning -Should improve with magnesium now normalized -Will give 40 mmol of IV K-Phos and 60 mEq of p.o. potassium chloride -Recheck in a.m. Hypophosphatemia -Will give 40 mmol of IV Phos and recheck in a.m. Tachycardia -Resolving Chronic leukopenia -White count is slowly trending up off alcohol Macrocytic anemia -Stabilized at 10.4 -Iron studies are not consistent with iron deficiency and more consistent with chronic disease -B12 is normal -Continue folic acid -No need for imaging as patient's hemoglobin is stable -Repeat in a.m. -No obvious signs of bleeding Folic acid deficiency -Continue folic acid supplementation History of epilepsy -Continue zonisamide History of bipolar disorder -Continue trazodone -Continue escitalopram -Previous suicide attempt Essential hypertension -Continue home lisinopril -Restart home Aldactone CAD -Noted history of PCI in 2017 -No current issues -Patient is not on any chronic medications for this History of migraine without aura -No current issues GERD -Continue IV Protonix for now and reassess tomorrow -Hold NSAIDs DVT prophylaxis -Continue SCDs -No chemoprophylaxis due to thrombocytopenia right now CODE STATUS -Full code as verified on admission Charges/Coding Visit Charges Inpatient E&M: 81990 Subs Hosp L2
[2024-07-08 13:51] VITALS: BP 101/77; PULSE 100; RESP 18; TEMP 37; O2SAT 96
[2024-07-08 14:11] LABS: Pathologist Review Reviewed
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
[2024-07-08 16:45] VITALS: BP 93/66; PULSE 100; RESP 20; TEMP 37; O2SAT 98
[2024-07-08] MEDS: Potassium Chloride Oral Tablet 20 MEQ 60 MEQ PO (16:51)
[2024-07-08] MEDS: Potassium Phosphate 40 MM in 0.9% Normal Saline (500mL Bag) 500 ML 62.5 MM IV (19:03)
[2024-07-08 23:10] VITALS: BP 104/72; PULSE 93; RESP 16; TEMP 36.5; O2SAT 100
[2024-07-08] MEDS: ZONISAMIDE 100 MG CAPSULE 200 MG PO (23:22)
[2024-07-09 04:14] VITALS: BMI 28.3
[2024-07-09] MEDS: Phenobarbital 32.4 MG Tablet PO ×4 (05:04→22:11)
[2024-07-09] MEDS: Scopolamine 1mg/72hr Patch 1 PATCH TD (05:04)
[2024-07-09 05:10] VITALS: BP 101/68; PULSE 81; RESP 16; TEMP 36.6; O2SAT 99
[2024-07-09 07:38] LABS: Hemoglobin 10.2 g/dL (12.0-15.0); Mean Corp Hgb Conc 32.9 g/dL (32-36); Mean Corpuscular Hgb 33.1 pg (27.0-32.0); Mean Corpuscular Volume 100.6 fL (81-99); Mean Platelet Vol. 13.1 fl (6.2-12.0); POSITIVE COUNT YES; RBC Distribution Width CV 16.1 % (11.6-14.6); RBC Distribution Width SD 58.6 fl (35.1-43.9); Red Blood Count 3.08 M/mm3 (4.2-5.4); White Blood Count 2.9 K/mm3 (4.4-11.0)
[2024-07-09 07:52] LABS: Platelet Count 33 K/mm3 (150-450); Scan Indicated on CBC? Y/N YES- FLAGS NOTED
[2024-07-09 08:06] LABS: Anion Gap 8 (5-15); BUN 9 mg/dL (7-18); BUN/Creat Ratio 11.4 RATIO (10-20); Calcium,Total 7.7 mg/dL (8.5-10.1); Chloride 110 mmol/L (98-107); Creatinine, Serum 0.79 mg/dL (0.55-1.02); EST Glomerular Filtration Rate 81 mL/min (>60); Est Glom Filt Rate - Afr Amer 98 mL/min (>60); Estimated Creatinine Clearance 81.62 ml/min; Glucose 132 mg/dL (74-106); Magnesium 1.5 mg/dL (1.6-2.6); Potassium 3.2 mmol/L (3.5-5.1); Sodium Level 137 mmol/L (136-145)
[2024-07-09] MEDS: Escitalopram Oxalate 20 MG Tablet PO (08:59)
[2024-07-09] MEDS: Thiamine Hydrochloride 100 MG Tablet PO (08:59)
[2024-07-09] MEDS: Pantoprazole Sodium 40 MG in 0.9% Normal Saline (100mL MB+) 100 ML 330 MG IV ×2 (08:59→22:13)
[2024-07-09 09:00] VITALS: BP 109/63; PULSE 98; RESP 16; TEMP 37.1; O2SAT 97
[2024-07-09] MEDS: Lisinopril 5 MG Tablet PO (09:02)
[2024-07-09] MEDS: ZONISAMIDE 100 MG CAPSULE PO (09:03)
[2024-07-09] MEDS: 0.9% Saline Lock 10 ML Syringe IV ×2 (09:03→20:45)
[2024-07-09] MEDS: Spironolactone 25 MG Tablet 75 MG PO (09:03)
[2024-07-09] MEDS: Potassium Phosphate 40 MM in 0.9% Normal Saline (500mL Bag) 500 ML 62.5 MM IV (09:31)
[2024-07-09 10:01] LABS: Pathologist Review Reviewed
[2024-07-09] MEDS: Folic Acid 1 MG in 0.9% Normal Saline (50mL Bag) 50 ML 200 MG IV (10:16)
[2024-07-09] MEDS: Magnesium Sulfate 2 GM in Dextrose 5%-Water (100mL Bag) 100 ML IV (11:02)
--- NOTE | 2024-07-09 11:10 | CASEMGMT ---
SW met with patient regarding SDOH concerns. Patient is alert and oriented today. SW provided patient with transportation resources, [facility] card, home delivered meals, [employer], and [employer]. SW also spoke with patient about waiver program with [employer] [facility]. Patient was open to SW making a referral. SW made a referral to [facility] for waiver services for patient. Purnima Urbano MSW MARY
--- NOTE | 2024-07-09 14:07 | PCM.PN.HOSP ---
Reason for Visit Reason for Visit: Acute alcohol withdrawal Subjective Subjective Overall patient is much better today. She is mentating more clearly. She does ask about her platelets and we did discuss that they are now trending up that she is not drinking in the alcohol at the direct moment with her oxygen. No complaints at this time and denies any needs. Objective Data Objective Data Vital Signs: Vital Signs Temp Pulse Resp BP Pulse Ox O2 Del Method 98.7 F 98 16 109/63 97 Room Air 07/09/24 09:00 07/09/24 09:00 07/09/24 09:00 07/09/24 09:00 07/09/24 09:00 07/09/24 09:00 Oxygen Delivery Method Room Air Weight: 74.9 kg Body Mass Index (BMI) 28.3 Intake & Output: Intake and Output for Last 24 Hours 07/07/24 07/08/24 07/09/24 23:59 23:59 23:59 Intake Total 1270.2 / 1410.2 1424.78 / 1424.78 1092.9533 / 1092.9533 Output Total 500 / 500 Balance 1270.2 / 1410.2 1424.78 / 1424.78 592.9533 / 592.9533 Lab / Micro Data 07/09/24 07:27 07/09/24 07:27 Labs: Laboratory Results - last 24 hr 07/06/24 00:02: Diff Path Review Reviewed 07/07/24 09:25: Diff Path Review Reviewed 07/09/24 07:27: WBC 2.9 L, RBC 3.08 L, Hgb 10.2 L, Hct 31.0 L, MCV 100.6 H, MCH 33.1 H, MCHC 32.9, RDW Std Deviation 58.6 H, RDW Coeff of Dixie 16.1 H, Plt Count 33 L*, MPV 13.1 H, Differential Comment COMMENT, Diff Path Review May foll, Sodium 137, Potassium 3.2 L, Chloride 110 H, Carbon Dioxide 19.0 L, Anion Gap 8, BUN 9, Creatinine 0.79, Estim Creat Clear Calc 81.62, Est GFR (MDRD) Af Amer 98, Est GFR (MDRD) Non-Af 81, BUN/Creatinine Ratio 11.4, Glucose 132 H, Calcium 7.7 L, Phosphorus 2.0 L, Magnesium 1.5 L Micro: Microbiology 07/07/24 11:15 Mucosa - Nose Respiratory Panel (PCR) - Final 07/07/24 11:35 Nasal Secretion SARS-CoV-2 Antigen (Rapid) - Final Physical Exam Const alert, no apparent distress, average body habitus and well nourished; Negative for healthy appearing Constitutional Narrative: Middle-aged, white female, sitting up in bed watching television, appears comfortable, nontoxic, patient is now oriented to self place I can tell in June but was confused on the year. She was able to get the year with some cues much improved overall. General Appearance: cooperative HEENT normocephalic and head/scalp atraumatic HEENT Narrative: History: Left foot sorry Resp normal respiratory effort, no retractions, no use of accessory muscles and clear to auscultation bilaterally Resp Narrative: Diminished but clear Auscultation: Negative for rales, rhonchi or wheezes Cardio regular rate, regular rhythm, S1 normal heart sound, S2 normal heart sound, no murmurs, no rub, no gallops and no clicks GI normal to inspection, nondistended, normoactive bowel sounds, soft to palpation and non-tender Extremity no clubbing, cyanosis or edema Extremity Narrative: 2+ pedal and radial pulses Neuro moves all extremities and no focal motor deficits Sensorium / Orientation: awake, alert, oriented to person and oriented to place Speech: speech normal Psych affect normal Psych Narrative: Very pleasant, interacts appropriately today, answers questions appropriately Assessment & Plan Assessment/Plan (1) Delirium tremens: (2) Acute hypokalemia: (3) Hypomagnesemia: (4) Thrombocytopenia: (5) Fever: PLAN: Plan Acute alcohol withdrawal with DTs -Patient's last admission was in March 2024 here -Continue phenobarbital taper as ordered -Continue thiamine and folate -As needed antiemetics orally -Supportive medication for symptom management associated with withdrawal - 180s plan is for outpatient follow-up after discharge -Clinically she is much better today Toxic/metabolic encephalopathy -Resolved Thrombocytopenia-acute on chronic -Baseline has been between 70-80,000 in the past -Already 37,000 on presentation--> seems to be stabilizing and currently up to 33,000 today -Slight PTT elevation with normal PTT and slightly elevated INR at 1.6 not indicative of smoldering DIC -Only transfuse for less than 20,000 or spontaneous bleeding -Suspect baseline thrombocytopenia is related to cirrhosis and/or marrow toxicity due to ongoing alcohol use -Recommend alcohol cessation -Repeat lab in a.m. Fever -Resolved Acute on chronic hyperbilirubinemia -Likely related to alcohol use -Should trend down with abstinence Hypomagnesemia -Recurrent -2 g mag bolus for magnesium of 1.5 next-recheck in a.m. Hypokalemia - up to 3.2 -K-Phos bolus 40 mmol Hypophosphatemia -Improved but not normalized -K-Phos bolus of 40 mmol Tachycardia -Resolved Chronic leukopenia -Stable Macrocytic anemia -Has stabilized in the 10-11 range -Repeat in a.m. Folic acid deficiency -Continue folic acid supplementation History of epilepsy -Continue zonisamide History of bipolar disorder -Continue trazodone -Continue escitalopram -Previous suicide attempt Essential hypertension -Continue home lisinopril -Restart home Aldactone CAD -Noted history of PCI in 2017 -No current issues -Patient is not on any chronic medications for this History of migraine without aura -No current issues GERD -Continue IV Protonix for now and reassess tomorrow -Hold NSAIDs DVT prophylaxis -Continue SCDs -No chemoprophylaxis due to thrombocytopenia right now -Would hold chemoprophylaxis until platelet count is greater than 75,000 CODE STATUS -Full code as verified on admission Charges/Coding Visit Charges Inpatient E&M: 64724 Subs Hosp L2
[2024-07-09 15:00] LABS: Pathologist Review Reviewed
[2024-07-09 15:01] VITALS: BP 100/82; PULSE 91; RESP 18; TEMP 36.7; O2SAT 100
[2024-07-09 20:25] VITALS: BP 108/79; PULSE 95; RESP 16; TEMP 36.3; O2SAT 99
[2024-07-09] MEDS: ZONISAMIDE 100 MG CAPSULE 200 MG PO (22:12)
[2024-07-09 22:15] VITALS: BP 102/74; PULSE 87; RESP 16; TEMP 36.2; O2SAT 100
[2024-07-09 23:36] LABS: Mucous, Urine 0 SEEN /hpf (<or=2+); Red Blood Cells-Urine 0 SEEN /hpf (0-5)
[2024-07-10 00:01] LABS: Glucose, Dipstick Normal (Normal); Ketone-Dipstick Negative (Negative); Leukocyte Esterase-Dipstick 500 /ul (Negative); Nitrite-Dipstick Negative (Negative); Occult Blood-Urine Negative /ul (Negative); Protein-Dipstick Negative (Negative); Urine Bilirubin Dipstick Negative (Negative); Urine Urobilinogen 4 mg/dl (Normal)
[2024-07-10 00:06] LABS: Color, Urine Yellow (Yellow); Urine Clarity Clear (Clear)
[2024-07-10 01:00] LABS: Bacteria 3+ /hpf (None Seen); Squamous Epithelial Cells - UA 5-10 SEEN /hpf (5-10); White Blood Cells 50-100 SEEN /hpf (0-5)
[2024-07-10 05:38] VITALS: BMI 27.8
[2024-07-10 05:40] VITALS: BP 110/80; PULSE 85; RESP 16; TEMP 36.6; O2SAT 100
[2024-07-10] MEDS: Phenobarbital 32.4 MG Tablet PO ×2 (05:42→11:08)
[2024-07-10 06:36] LABS: Hematocrit 32.3 % (37-47); Hemoglobin 10.3 g/dL (12.0-15.0); Mean Corp Hgb Conc 31.9 g/dL (32-36); Mean Corpuscular Volume 103.5 fL (81-99); Mean Platelet Vol. 11.6 fl (6.2-12.0); POSITIVE COUNT YES; RBC Distribution Width CV 16.6 % (11.6-14.6); RBC Distribution Width SD 62.3 fl (35.1-43.9); Red Blood Count 3.12 M/mm3 (4.2-5.4); White Blood Count 2.6 K/mm3 (4.4-11.0)
[2024-07-10 06:45] LABS: Platelet Count 41 K/mm3 (150-450); Scan Indicated on CBC? Y/N YES- FLAGS NOTED
[2024-07-10 07:05] LABS: Anion Gap 8 (5-15); BUN 8 mg/dL (7-18); BUN/Creat Ratio 11.1 RATIO (10-20); Calcium,Total 8.1 mg/dL (8.5-10.1); Chloride 110 mmol/L (98-107); Creatinine, Serum 0.72 mg/dL (0.55-1.02); EST Glomerular Filtration Rate 90 mL/min (>60); Est Glom Filt Rate - Afr Amer 109 mL/min (>60); Glucose 125 mg/dL (74-106); Magnesium 1.8 mg/dL (1.6-2.6); Phosphorus 2.9 mg/dL (2.5-4.9); Potassium 3.4 mmol/L (3.5-5.1); Sodium Level 137 mmol/L (136-145)
[2024-07-10] MEDS: Ceftriaxone 1 GM/50 ML BAG IV (11:07)
[2024-07-10] MEDS: ZONISAMIDE 100 MG CAPSULE PO (11:08)
[2024-07-10] MEDS: Escitalopram Oxalate 20 MG Tablet PO (11:09)
[2024-07-10] MEDS: Lisinopril 5 MG Tablet PO (11:09)
[2024-07-10] MEDS: Pantoprazole Sodium 40 MG in 0.9% Normal Saline (100mL MB+) 100 ML 330 MG IV (11:10)
[2024-07-10] MEDS: Thiamine Hydrochloride 100 MG Tablet PO (11:10)
[2024-07-10] MEDS: Spironolactone 25 MG Tablet 75 MG PO (11:10)
[2024-07-10] MEDS: Folic Acid 1 MG in 0.9% Normal Saline (50mL Bag) 50 ML 200 MG IV (11:11)
[2024-07-10] MEDS: 0.9% Saline Lock 10 ML Syringe IV (11:27)
[2024-07-10 11:40] VITALS: BP 100/81; PULSE 92; RESP 16; TEMP 36.1; O2SAT 99
--- NOTE | 2024-07-10 14:10 | CASEMGMT ---
Social Work SW met w/pt to review discharge options. Pt does not want to go to SNF for rehab, she wants to go home, says her boyfriend will help her. She declined a walker, HHC, outpt therapy. SW advised pt if she gets home and wants HHC, a walker, outpt therapy her PCP can order any of these things. Pt plans to follow up w/counseling in [place]. No further social service needs anticipated at this time. JONNIE Persaud
--- NOTE | 2024-07-10 16:28 | PCM.DC.SUM ---
Providers Date of Admission: 07/06/24 Date of Discharge: 07/10/24 Primary Care Physician: Dr. Edis Nichols MD Reason For Visit: ACUTE ETOH W/D, CHRONIC ETOH ABUSE, INTRACTABLE Diagnosis Discharge Diagnosis (1) Delirium tremens: Status: Acute Code(s): F10.931 - Alcohol use, unspecified with withdrawal delirium (2) Acute hypokalemia: Status: Acute Code(s): E87.6 - Hypokalemia (3) Hypomagnesemia: Status: Acute Code(s): E83.42 - Hypomagnesemia (4) Thrombocytopenia: Status: Acute Code(s): D69.6 - Thrombocytopenia, unspecified (5) Fever: Status: Acute Code(s): R50.9 - Fever, unspecified Medications at Discharge Home Medications escitalopram oxalate 20 mg tablet 20 mg PO DAILY mental health #90 tabs 11/20/23 lisinopril 5 mg tablet 5 mg PO DAILY blood pressure #30 tabs 01/06/24 flurbiprofen 100 mg tablet 100 mg PO TID PRN pain #270 tabs 01/29/24 zonisamide 100 mg capsule 100 mg .Route .COMPLEX EPILEPSY #90 caps 01/29/24 spironolactone 25 mg tablet 75 mg (3 x 25 mg) PO DAILY #90 tabs 03/14/24 trazodone 50 mg tablet 50 mg PO QHS PRN insomnia #10 tabs 06/28/24 cephalexin 500 mg capsule 500 mg PO BID #4 caps 07/10/24 folic acid 1 mg tablet 1 mg PO DAILY #30 tabs 07/10/24 Hospital Course Operations None Procedures - (CT abdomen and pelvis) Summary of Care Provided Minutes Spent on Discharge: 38 Hospital Course: Ms. Pa is a 54-year-old female who presents emergency department at [facility] on 07/06/2024 early in the morning requesting help with acute alcohol drawl. On presentation the patient report her last drink was about 24 hours prior to presentation when she spontaneously decided to stop drinking. She reported on presentation she is drinking at least 3-4 beers daily but when she stopped drinking she became anxious and jittery with tremors. She then developed intractable nausea and vomiting consistent with her previous bouts of alcohol withdrawal so she elected to come into the emergency department for evaluation and treatment. Vital signs on presentation showed a temperature of 97.9, heart rate 112, respiratory rate 23, blood pressure was 172/102 with a repeat of 152/93 and pulse ox was 98% on room air. CBC on presentation showed leukopenia which appears to be chronic and stable next-normal hemoglobin and acute on chronic thrombocytopenia. Chemistry panel revealed markedly low potassium at 2.7 with a carbon dioxide of 17 and anion gap of 23 likely related to alcohol or starvation ketosis LFTs showed hyperbilirubinemia with a bilirubin of 2.4 and consistent with previous liver functions. AST was elevated at 122 with a normal ALT consistent with alcohol consumption. Alk phos was mildly elevated 119. Folic acid level was low at 2.9 and TSH was normal. She had hypomagnesemia with magnesium level of 1.1. Toxicology screen was positive for alcohol level of 12 and marijuana. Patient was admitted to the telemetry floor due to her severe electrolyte abnormalities and electrolyte replacement was ordered in conjunction with a phenobarbital taper for alcohol detox, thiamine and folate and supportive medication for symptom management related to her alcohol detox. She initially did fine however developed significant agitation and hallucinations. As needed Ativan per [facility] protocol was utilized and she was maintained on phenobarbital. She underwent significant electrolyte replacement and all electrolytes have been normalized by the time of discharge. Her mental status started to improve and for the first time during her hospitalization she was clear on 07/09/2024. We did asked physical and Occupational Therapy to see her. Patient declined services at the time of discharge and did not want any assistive devices. We did recommend home health care versus skilled facility however she declined needing any of it. She wanted to go home and indicated that her boyfriend could help her. I am concerned that she be high risk for readmission however she is mentally clear and able to make decisions at this time. No new medications were initiated at the time of discharge. She has a follow-up appointment at the counseling center for her alcohol abuse on 07/14/2024 and she was strongly encouraged to follow-up there. She did complain of some dysuria and her UA was consistent with infection. She was started on ceftriaxone and got 1 day while she was hospitalized. Cultures pending however given her symptoms and positive UA we will start her on Keflex at discharge for another 48 hours then stop. I have asked that she follow-up with her primary care physician within the next week. She will need a repeat CBC, BMP, magnesium level, and phosphorus level to reassess her electrolytes for stability and to reassess her platelet count. Her platelet count was low and dropped initially during her hospital course but trended back up and was 33,000 at the time of discharge. Highly suspect that her acute drop is related to alcohol toxicity to her bone marrow and as her marrow recovers her platelet count should continue to trend up. I did vocalize with her the importance of alcohol cessation and her overall health. She was able to be discharged home in stable condition on 07/10/2024. Doing discharge diagnoses: Acute alcohol withdrawal with delirium tremens Alcohol abuse Toxic/metabolic encephalopathy-resolved Acute on chronic thrombocytopenia-resolving Fever-resolved Acute on chronic hyperbilirubinemia Hypomagnesemia-resolved Hypokalemia-resolved Hypophosphatemia-resolved Tachycardia-resolved Chronic leukopenia Chronic macrocytic anemia Folic acid deficiency History of epilepsy History of bipolar disorder Essential hypertension CAD History of migraine without aura GERD Physical Exam Narrative Patient says she is feeling well. Intends to follow-up at her appointment on the fifth. No complaints today. Const alert, oriented x3, no apparent distress, average body habitus, no limitations and well nourished; Negative for healthy appearing Constitutional Narrative: Middle-aged, white female, sitting up in bed watching television, appears comfortable, nontoxic, oriented x 3 today, appears comfortable, nontoxic General Appearance: cooperative, comfortable, well kempt and well developed Exam Limitations: no limitations Nutritional Appearance: overweight HEENT normocephalic, head/scalp atraumatic, hearing grossly normal bilaterally and moist oral mucous membranes HEENT Narrative: Mallampati 3, no thrush Eyes EOMs intact bilaterally and conjunctivae normal Eyes Narrative: No scleral icterus Neck supple Neck Narrative: Trachea midline, no thyroid enlargement Resp normal respiratory effort, no retractions, no use of accessory muscles and clear to auscultation bilaterally Resp Narrative: Diminished but clear Auscultation: Negative for rales, rhonchi or wheezes Cardio regular rate, regular rhythm, S1 normal heart sound, S2 normal heart sound, no murmurs, no rub, no gallops and no clicks GI normal to inspection, nondistended, normoactive bowel sounds, soft to palpation and non-tender Extremity no clubbing, cyanosis or edema Extremity Narrative: 2+ pedal and radial pulses Skin skin turgor normal, no jaundice, no petechiae and no mottling Skin Narrative: No evidence of petechiae, few scattered ecchymosis Neuro oriented x3, CN's II-XII intact bilaterally, moves all extremities and no focal motor deficits Neuro Narrative: Generalized weakness noted but no focal deficits Speech: speech normal Psych affect normal Psych Narrative: Very pleasant, interacts appropriately today, answers questions appropriately Mood & Affect: depressed and anxious Weight / BMI Weight Weight: 74.1 kg Body Mass Index (BMI) 27.8 ABG / Lab / Microbiology Data 07/10/24 06:15 07/10/24 06:15 Laboratory: Laboratory Results - last 24 hr 07/09/24 23:00: Urine Color Yellow, Urine Clarity Clear, Urine pH 7.0, Ur Specific Max 1.010, Urine Protein Negative, Urine Glucose (UA) Normal, Urine Ketones Negative, Urine Occult Blood Negative, Urine Nitrite Negative, Urine Bilirubin Negative, Urine Urobilinogen 4 H, Ur Leukocyte Esterase 500 H, Urine RBC 0 SEEN, Urine WBC 50-100 SEEN, Ur Squamous Epith Cells 5-10 SEEN, Urine Bacteria 3+, Urine Mucus 0 SEEN 07/10/24 06:15: WBC 2.6 L, RBC 3.12 L, Hgb 10.3 L, Hct 32.3 L, MCV 103.5 H, MCH 33.0 H, MCHC 31.9 L, RDW Std Deviation 62.3 H, RDW Coeff of [place] 16.6 H, Plt Count 41 L*, MPV 11.6, Diff Path Review October, Sodium 137, Potassium 3.4 L, Chloride 110 H, Carbon Dioxide 19.0 L, Anion Gap 8, BUN 8, Creatinine 0.72, Estim Creat Clear Calc 89.10, Est GFR (MDRD) Af Amer 109, Est GFR (MDRD) Non-Af 90, BUN/Creatinine Ratio 11.1, Glucose 125 H, Calcium 8.1 L, Phosphorus 2.9, Magnesium 1.8 Microbiology: Microbiology 07/07/24 11:15 Mucosa - Nose Respiratory Panel (PCR) - Final 07/07/24 11:35 Nasal Secretion SARS-CoV-2 Antigen (Rapid) - Final D/C Instructions DC O2, CPAP, BIPAP Needs Home O2 Discharge instructions: No Meaningful Use Info Meaningful Use Meaningful Use Diagnoses (Choose all that apply): None applicable Ischemic Stroke Statin Dosing Therapy Reference: STATIN DOSE THERAPY REFERENCE: * Patients > 75 years receive moderate or high dose statin therapy. * Patients 75 years or YOUNGER should receive HIGH intensity statin dose unless contraindicated. You will be required to document reason for non-treatment if statin daily dose does not meet guidelines. HIGH DOSE STATIN THERAPY DAILY Atorvastatin > than or = to 40 mg Rosuvastatin > than or = to 20 mg Amlodipine + Atorvastatin > than or = to 2.5/40 mg Ezetimibe + Simvastatin 10/80 mg Simvastatin 80mg Discharge Plan Admission Admit Date/Time: 07/06/24 02:59 Primary Reason for Your Visit: Acute alcohol withdrawal/detox Attending Provider: Jana Holden Primary Care Provider: Edis Nichols Consulting Providers: Riley Moura Instructions Additional Instructions / Restrictions: 1. Please show up for your counseling session as instructed on 07/14/2024 2. It is crucial for your health to abstain from alcohol 3. Please follow-up with your primary care physician within the next 1 to 2 weeks. Please asked that a repeat CBC or complete blood count be performed to recheck your platelets and a BMP or basic metabolic profile as well as a phosphorus and magnesium level to recheck your electrolytes as they were quite low while you are hospitalized. Discharge Orders/Prescriptions Prescriptions: New cephalexin 500 mg capsule 500 mg PO BID Qty: 4 0RF folic acid 1 mg tablet 1 mg PO DAILY Qty: 30 2RF Continued flurbiprofen 100 mg tablet 100 mg PO TID PRN (Reason: pain) Qty: 270 2RF zonisamide 100 mg capsule 100 mg .ROUTE .COMPLEX Qty: 90 3RF Rx Instructions: Take 1 capsule PO every morning and 2 capsules every evening spironolactone 25 mg tablet 75 mg PO DAILY Qty: 90 3RF Rx Instructions: Hold if K more than 5.0. Advised BMP in 3 days escitalopram oxalate 20 mg tablet 20 mg PO DAILY Qty: 90 0RF lisinopril 5 mg tablet 5 mg PO DAILY Qty: 30 0RF trazodone 50 mg tablet 50 mg PO QHS PRN (Reason: insomnia) Qty: 10 0RF Referrals / Follow Up: Edis Nichols MD [Primary Care Provider] - In 1 Week Disposition Disposition (needs filled in before D/C Order can be placed): Home, Self Care Charges/Coding Visit Charges Inpatient E&M: 11751 Disch Hosp >30min
[2024-07-10 17:00] VITALS: BP 112/89; PULSE 97; RESP 16; TEMP 36.8; O2SAT 100
[2024-07-12 14:03] LABS: Pathologist Review Reviewed
[2024-07-12 14:05] LABS: Pathologist Review Reviewed
--- NOTE | 2024-07-13 12:34 | CASEMGMT ---
SW received a response from [facility] regarding the referral made for patient. [facility] called 3 times, left one voicemail, and now the voicemail box is full. Purnima HERNANDEZ
--- NOTE | 2024-08-02 23:20 | EX.ED.DYSGE1 ---
HPI History of Present Illness Chief Complaint: ETOH Intox [facility] Medical History Grief reaction Alcoholic liver disease Cannabis abuse Tobacco abuse Chronic alcohol abuse GERD (gastroesophageal reflux disease) Pancreatitis Elevated troponin Alcohol abuse Health care maintenance Trochanteric bursitis, right hip Chronic back pain Breast cancer screening Pain in joint involving right pelvic region and thigh Migraine without aura and without status migrainosus, not intractable Wears glasses Cancer Bipolar disorder Depression Anxiety Alcohol use Marijuana use Low iron Easy bruising Injury of back Injury of head and neck Loss of consciousness Syncope Seizures Smoker Leg cramps Cardiology follow-up encounter Hypertension Multiple joint pain Seizure disorder Heart valve disease Potassium (K) deficiency Vision problem History of pancreatitis Carpal tunnel syndrome Back problem Arthritis Anemia Seasonal allergies AA (alcohol abuse) UTERINE ABLATION Attempted suicide Difficulty balancing Seizures Diarrhea Hypertension Home Medications ?Medication ?Instructions ?Recorded ?Last Taken ?Type escitalopram oxalate 20 mg tablet 20 mg PO DAILY mental health #90 11/20/23 07/27/24 Rx tabs lisinopril 5 mg tablet 5 mg PO DAILY blood pressure #30 01/06/24 07/26/24 Rx tabs flurbiprofen 100 mg tablet 100 mg PO TID PRN pain #270 tabs 01/29/24 Unknown Rx trazodone 50 mg tablet 50 mg PO QHS PRN insomnia #10 tabs 06/28/24 Unknown Rx omeprazole 40 mg capsule,delayed 40 mg PO QDAY reflux #90 caps 07/12/24 07/26/24 Rx release zonisamide 100 mg capsule 100 mg .Route .COMPLEX EPILEPSY 07/13/24 Unknown Rx #90 caps folic acid 1 mg tablet 1 mg PO DAILY supplement 30 days 07/30/24 Unknown Rx #30 tabs nicotine 21 mg/24 hr daily 21 mg transdermal DAILY 28 days 07/30/24 Unknown Rx transdermal patch #28 ea spironolactone 50 mg tablet 100 mg (2 x 50 mg) PO DAILYCM 30 07/30/24 Unknown Rx days #60 tabs thiamine HCl (vitamin B1) 100 mg 100 mg PO DAILYCM 30 days #30 tabs 07/30/24 Unknown Rx tablet Allergy/AdvReac Type Severity Reaction Status Date / Time Penicillins Allergy Other Verified 07/27/24 18:06 bupropion HCl (From AdvReac Depression Verified 07/27/24 18:06 Wellbutrin) Family History Aunt Breast cancer Thyroid disorder Father Cancer Grandfather Cancer Mother Diabetes Hypertension Grandmother Myocardial infarction Heart disease Hypertension Cancer Hypercholesterolemia Other Cerebral aneurysm Surgical History Tubal ligation status History of endometrial ablation History of tubal ligation S/P skin cancer resection H/O heart artery stent bladder sling History of heart surgery Social History Smoking Status: Current every day smoker tobacco type: cigarettes Tobacco: How many years used: 26 Electronic Cigarette Use: not used second hand exposure: Yes alcohol intake: current alcohol intake frequency: 3 or more drinks per day Alcohol type: beer, wine and other details: Recent heavy hard liquor intake, prior intermittent beer intake, 1-3/time. substance use type: former substance user and marijuana what type of physical activity do you participate in: walking, bicycling and other details: LEG LIFTS frequency: daily sharon/restoration: None seatbelt use: always MDM MDM MDM Narrative Medical decision making narrative: HISTORY OF PRESENT ILLNESS: 54-year-old female history of alcohol liver disease, cannabis, tobacco abuse and alcohol abuse, bipolar disorder presents with concern for alcohol withdrawal. Per patient she drinks 1 pint of liquor daily. REVIEW OF SYSTEMS: Pertinent positives: Abdominal pain, nausea and vomiting, blood in stool Pertinent negatives: Fever PHYSICAL EXAM: Nursing triage notes reviewed, Vital signs reviewed Constitutional: please see mdm HENT: MMM Eyes: Pupils equal round and reactive to light, Extraocular muscles intact Neck: No stridor, no JVD, full neck ROM Lungs: Clear to auscultation, No wheezing or rales. No increased work of breathing, no conversational dyspnea, no accessory muscle use, no nasal flaring. No respiratory distress noted Heart: Regular rate and rhythm, No murmurs, No rubs and No gallops, 2+ distal pulses (radial, femoral, posterior tibial) in all extremities Abdomen: Diffuse abdominal tenderness but no rigidity, rebound or guarding, no obvious peritoneal signs, no palpable pulsatile abdominal masses, no auscultated abdominal bruit : No CVAT Extremities: No edema Neuro: No new focal neurological deficits, cranial nerves II through XII intact, 5/5 strength in all present extremities. Intact sensation to light touch in all present extremities, 2+ reflexes bilateral patella tendons. Skin: No rash or lesions noted MEDICAL DECISION MAKING: Chief Complaint: alcohol abuse Abdominal pain, nausea vomiting, diarrhea, External records reviewed: Reviewed CT scan from 07/06/2024 which showed hepatomegaly with steatosis, probable cirrhosis, chronic pancreatitis, cholelithiasis Factors affecting care: Cirrhosis Social determinants of health: History of alcohol abuse History obtained from others: none Consults: internal medicine physician (Dr. Palomares)-agree to admit the patient MDM Narrative: Patient was initially tachycardic rate 112, tachypnea rate 23, hypertensive with a blood pressure 172/102 otherwise saturating well on room air I considered the following differential diagnosis: ICH, acute pancreatitis, alcohol withdrawal The patient abdominal exam was not peritonitic. Not consistent with a perforation or obstruction. In addition to this he would not consider obtaining a CT scan the patient underwent CT scan of the abdomen pelvis approximately 20 days ago which was negative. Patient was initially resuscitated 1 L normal saline, 2 mg IV Ativan, 4 mg IV Zofran, 97.2 mg of p.o. phenobarbital, 100 mg IV thiamine ALL IMAGES (IF OBTAINED) HAVE BEEN PERSONALLY REVIEWED AND INTERPRETED BY MYSELF. CT scan of the head showed no evidence of ICH EKG with sinus tachycardia rate of 111, normal axis, prolonged QT interval of 497, no STEMI CBC with no leukocytosis, no anemia, noted thrombocytopenia improved from baseline BMP without significant electrolyte abnormalities, noted hypokalemia, noted metabolic acidosis elevated anion gap likely secondary to alcohol induced malnutrition ketoacidosis LFTs with signs of alcohol induced liver damage as well as hyperbilirubinemia Lipase is wnl indicating no pancreatic inflammation. Urine test is negative Serum alcohol negative The patient's presentation is likely secondary to acute alcohol withdrawal. Will admit. Discussed with hospitalist. The patient and/or family, caregivers express understanding. The patient and/or family, caregivers agrees with the plan. Shared decision making: I will have a discussion with the patient and or visitors regarding risk/benefits of further testing or admission. They will be made aware of of the risk/benefits inherent in this decision they will be given the opportunity to voice understanding. Total critical care time today provided was at least 0 minutes. This excludes separately billable procedures. Critical care time (if documented) is secondary to the patient having high probability of clinically significant/life threatening deterioration in the patient's condition which required my urgent intervention. Impression: 1. Acute alcohol withdrawal 2. Thrombocytopenia 3. Hypokalemia Dispo: Admit to PCU This note was generated with [employer] dictation software. It may contain incorrect words, spelling, and punctuation that were not noted in review of the chart prior to signing. Discharge Plan Dx/Rx/DC Orders Clinical Impression: Alcohol abuse, Hypertension, Alcohol withdrawal, Thrombocytopenia, Hypomagnesemia, Acute hypokalemia Disposition Disposition: [facility] Discharge Date/Time: 07/06/24 03:44
== END 2024-07-10 18:12 | disposition home or self-care (01) | DRG 896 ==
LOC: ED 07-06 02:13 → PCU 07-06 03:25
PROVIDERS: Admitting Provider Internal Medicine; Emergency Provider Emergency Medicine; PCP Internal Medicine; Visit Provider Internal Medicine
DX: F10.131 Alcohol abuse with withdrawal delirium (principal); G92.8 Other toxic encephalopathy; F31.63 Bipolar disorder, current episode mixed, severe, without psychotic features; K86.0 Alcohol-induced chronic pancreatitis; N39.0 Urinary tract infection, site not specified; E83.39 Other disorders of phosphorus metabolism; K70.30 Alcoholic cirrhosis of liver without ascites; D69.59 Other secondary thrombocytopenia; G40.909 Epilepsy, unspecified, not intractable, without status epilepticus; I10 Essential (primary) hypertension; F12.10 Cannabis abuse, uncomplicated; D53.9 Nutritional anemia, unspecified; E83.42 Hypomagnesemia; F17.210 Nicotine dependence, cigarettes, uncomplicated; F41.9 Anxiety disorder, unspecified; E87.6 Hypokalemia; M19.90 Unspecified osteoarthritis, unspecified site; M54.9 Dorsalgia, unspecified; I25.10 Atherosclerotic heart disease of native coronary artery without angina pectoris; R11.2 Nausea with vomiting, unspecified; E53.8 Deficiency of other specified B group vitamins; D72.818 Other decreased white blood cell count; K21.9 Gastro-esophageal reflux disease without esophagitis; E80.7 Disorder of bilirubin metabolism, unspecified; K76.0 Fatty (change of) liver, not elsewhere classified; R50.9 Fever, unspecified; E66.3 Overweight; G89.29 Other chronic pain; R00.0 Tachycardia, unspecified; Z63.4 Disappearance and death of family member; Z87.19 Personal history of other diseases of the digestive system; Z91.51 Personal history of suicidal behavior; Z79.899 Other long term (current) drug therapy; Z88.0 Allergy status to penicillin; Z95.5 Presence of coronary angioplasty implant and graft; Z68.28 Body mass index [BMI] 28.0-28.9, adult; Z85.828 Personal history of other malignant neoplasm of skin; Z86.69 Personal history of other diseases of the nervous system and sense organs
CPT/HCPCS: 36415; 74176; 80048; 80053; 80076; 80307; 81001; 82077; 82607; 82728; 82746; 83540; 83550; 83690; 83735; 84100; 84443; 85018; 85025; 85027; 85610; 85730; 86703; 86850; 86900; 86901; 87086; 87426; 87633; 93005; 94668; 97166; 97803; 99285; A4216; J2405

== ENCOUNTER 2024-07-27 17:45 | Inpatient (IN) | payer MEDICARE, SELFPAY ==
[2024-07-27 18:02] VITALS: BP 127/100; PULSE 89; RESP 45; TEMP 36.8; O2SAT 100; BMI 28.0
--- NOTE | 2024-07-27 18:52 | CT_ITS ---
EXAM: BRAIN/HEAD WITHOUT CONTRAST CLINICAL HISTORY: Head trauma COMPARISON: None. TECHNIQUE: Noncontrast images of the head with multiplanar reconstructions. Dose reduction techniques were used including intermediate exposure control (AEC),iterative reconstruction technique, and/or mA and/or KV dose adjustments based on patient's size. FINDINGS: CT HEAD FINDINGS: No acute intracranial hemorrhage, mass, mass effect, midline shift or pathologic extra-axial fluid collection. No hydrocephalus. Age- appropriate cerebral volume and white matter. Visualized paranasal sinuses and mastoid air cells are clear. The calvarium is grossly intact. CT/Brain/Head without Contrast IMPRESSION: No CT evidence of acute intracranial pathology. Reading Location: [facility]
[2024-07-27] MEDS: Phenobarbital 32.4 MG Tablet 97.2 MG PO (19:02)
[2024-07-27] MEDS: Ondansetron 4 MG/2 ML Vial IV (19:02)
[2024-07-27 19:03] LABS: Absolute Lymphocyte Count 0.57 X10^3/uL (0.83-4.51); Absolute Neutrophil Count 3.2 X10^3/uL (2.0-7.7); Basophil# 0.02 X10^3/uL; Basophil% 0.5 % (0-1); Eosinophil# 0.01 X10^3/uL; Eosinophils% 0.3 % (0-5); Hemoglobin 12.3 g/dL (12.0-15.0); Lymphocyte # 0.57 X10^3/ul (0.83-4.51); Lymphocyte % 14.3 % (19-41); Mean Corp Hgb Conc 33.2 g/dL (32-36); Mean Corpuscular Hgb 32.8 pg (27.0-32.0); Mean Corpuscular Volume 98.7 fL (81-99); Mean Platelet Vol. 10.7 fl (6.2-12.0); Monocyte# 0.22 X10^3/uL; Monocyte% 5.5 % (0-10); NRBC Flagged by Analyzer 0 % (0-5); Neutrophil # 3.15 X10^3/uL (2.7-7.7); Neutrophil % 78.9 % (47-70); POSITIVE DIFFERENTIAL YES; Platelet Count 127 K/mm3 (150-450); RBC Distribution Width CV 14.6 % (11.6-14.6); RBC Distribution Width SD 53.9 fl (35.1-43.9); Red Blood Count 3.75 M/mm3 (4.2-5.4)
[2024-07-27] MEDS: Lorazepam 2 MG/ML WCH Syringe IV ×2 (19:03→21:32)
[2024-07-27 19:16] LABS: Alcohol, Blood (Medical)-Serum < 3.0 mg/dL
[2024-07-27 19:19] LABS: AST(SGOT) 142 U/L (15-37); Alanine Aminotransfer ALT/SGPT 59 U/L (13-56); Albumin, Serum 3.6 g/dL (3.2-5.0); Alkaline Phosphatase 134 U/L (45-117); Anion Gap 18 (5-15); BUN 7 mg/dL (7-18); BUN/Creat Ratio 9.3 RATIO (10-20); Bilirubin, Direct 1.09 mg/dL (0.00-0.30); Calcium,Total 9.3 mg/dL (8.5-10.1); Chloride 103 mmol/L (98-107); Creatinine, Serum 0.75 mg/dL (0.55-1.02); EST Glomerular Filtration Rate 86 mL/min (>60); Est Glom Filt Rate - Afr Amer 104 mL/min (>60); Estimated Creatinine Clearance 85.59 ml/min; Globulin 4.4 g/dL (2.2-4.2); Glucose 176 mg/dL (74-106); Lipase 17 U/L (73-393); Potassium 3.4 mmol/L (3.5-5.1); Sodium Level 138 mmol/L (136-145)
[2024-07-27 19:48] VITALS: BP 176/110; PULSE 110; RESP 16; O2SAT 94
[2024-07-27] MEDS: Thiamine Hydrochloride 100 MG in 0.9% Normal Saline (50mL Bag) 50 ML 200 MG IV (19:53)
[2024-07-27 20:25] LABS: Internal QC Validated? YES +Cl - CLEAR BKGD; Pregnancy, Serum, hCG Quali. NEGATIVE Negative
[2024-07-27] MEDS: Metoclopramide 10 MG/2 ML Vial 5 MG IV (20:46)
[2024-07-27 20:56] VITALS: BP 135/93; PULSE 115; RESP 23; O2SAT 95
[2024-07-27 21:00] LABS: Amphetamine Urine NEGATIVE (<1000 ng/mL); Barbiturate Urine POSITIVE (< 200 ng/mL); Benzodiazepine Urine NEGATIVE (< 200 ng/mL); Cocaine Urine NEGATIVE (< 300 ng/mL); Ecstacy Urine NEGATIVE (< 500 ng/mL); Methadone Urine NEGATIVE (< 300 ng/mL); Opiates Urine NEGATIVE (< 300 ng/mL); PCP Urine NEGATIVE (< 25 ng/mL); THC Urine POSITIVE (< 50 ng/mL); Vista UDS pH Range 6
[2024-07-27] MEDS: Haloperidol Lactate 5 MG/ML Vial 1 MG IV (21:30)
--- NOTE | 2024-07-27 21:36 | PCM.HP.STD ---
HPI - General General Date of Admission: 07/27/24 Date of Service: 07/27/24 Chief Complaint: EtOH withdrawal. HPI Narrative The patient is a 54 y/o F w/ PMHx: Chronic thrombocytopenia, Anxiety and Depression/Bipolar disorder, Seizure disorder, Chronic migraines, Chronic back pain, Cannabis chronic use, Tobacco use, Chronic anemia/ Fe deficiency anemia, HTN, Allergic rhinitis, EtOH abuse, CAD s/p PCI, recent discharge 07/10/2024 secondary to delirium tremens with underlying alcohol abuse with electrolyte disturbances with urinalysis concerning for UTI placed on Rocephin initially and discharged on Keflex with final urine culture from 07/10/2024 with no growth exhibited in addition to acute on chronic thrombocytopenia as well as acute on chronic hyperbilirubinemia and transaminitis felt secondary to alcohol toxicity with upon discharge recommendation of home health at home versus skilled facility which she declined per review of discharge note who presents to the [facility] ED on 07/27/2024 with history of resumption of alcohol intake approximate 1 pint of liquor daily since her discharge with last alcohol intake the evening prior who now re-presents with again noted acute EtOH withdrawal, onset starting over the course of the day and worsening with onset of nausea, tremors, agitation, tactile disturbances. She also reports abdominal cramping diffusely. Patient interested in attaining sober status. Workup in the ED included T98.3, heart rate 89, BP 127/100, respiratory rate 45, 100% room air--> most recent BP 176/110, heart rate 110, respiratory rate 16, 94% room air,, CBC with WBC 4.0, hemoglobin 12.3, MCV 98.7, platelet 127 with lymphopenia, CMP with sodium 138, potassium 3.4, chloride 103, carbon oxide 17, anion gap 18, BUN/creatinine 7/0.75, GFR 86, glucose 176, T. bili 3.50, D bili 1.09, AST/ALT 142/59, alk phos 134, lipase 17, ethyl alcohol less than 3, UDS with positive barbiturates and cannabis, CT of the brain with no acute findings, serum testing negative. In the ED patient administered lorazepam 2 mg IV x 1, Zofran 4 mg IV x 1, phenobarbital 97.2 mg p.o. x 1, thiamine 100 mg IV x 1. [facility] Medical History Grief reaction Alcoholic liver disease Cannabis abuse Tobacco abuse Chronic alcohol abuse GERD (gastroesophageal reflux disease) Pancreatitis Elevated troponin Alcohol abuse Health care maintenance Trochanteric bursitis, right hip Chronic back pain Breast cancer screening Pain in joint involving right pelvic region and thigh Migraine without aura and without status migrainosus, not intractable Wears glasses Cancer Bipolar disorder Depression Anxiety Alcohol use Marijuana use Low iron Easy bruising Injury of back Injury of head and neck Loss of consciousness Syncope Seizures Smoker Leg cramps Cardiology follow-up encounter Hypertension Multiple joint pain Seizure disorder Heart valve disease Potassium (K) deficiency Vision problem History of pancreatitis Carpal tunnel syndrome Back problem Arthritis Anemia Seasonal allergies AA (alcohol abuse) UTERINE ABLATION Attempted suicide Difficulty balancing Seizures Diarrhea Hypertension Home Medications ?Medication ?Instructions ?Recorded ?Last Taken ?Type escitalopram oxalate 20 mg tablet 20 mg PO DAILY mental health #90 11/20/23 Unknown Rx tabs lisinopril 5 mg tablet 5 mg PO DAILY blood pressure #30 01/06/24 Unknown Rx tabs flurbiprofen 100 mg tablet 100 mg PO TID PRN pain #270 tabs 01/29/24 Unknown Rx spironolactone 25 mg tablet 75 mg (3 x 25 mg) PO DAILY #90 tabs 03/14/24 Unknown Rx trazodone 50 mg tablet 50 mg PO QHS PRN insomnia #10 tabs 06/28/24 Unknown Rx cephalexin 500 mg capsule 500 mg PO BID #4 caps 07/10/24 Unknown Rx folic acid 1 mg tablet 1 mg PO DAILY #30 tabs 07/10/24 Unknown Rx omeprazole 40 mg capsule,delayed 40 mg PO QDAY #90 caps 07/12/24 Unknown Rx release zonisamide 100 mg capsule 100 mg .Route .COMPLEX EPILEPSY 07/13/24 Unknown Rx #90 caps Allergy/AdvReac Type Severity Reaction Status Date / Time Penicillins Allergy Other Verified 07/27/24 18:06 bupropion HCl (From AdvReac Depression Verified 07/27/24 18:06 Wellbutrin) Family History Aunt Breast cancer Thyroid disorder Father Cancer Grandfather Cancer Mother Diabetes Hypertension Grandmother Myocardial infarction Heart disease Hypertension Cancer Hypercholesterolemia Other Cerebral aneurysm Surgical History Tubal ligation status History of endometrial ablation History of tubal ligation S/P skin cancer resection H/O heart artery stent bladder sling History of heart surgery Social History Smoking Status: Current every day smoker tobacco type: cigarettes Tobacco: How many years used: 26 Electronic Cigarette Use: not used second hand exposure: Yes alcohol intake: current alcohol intake frequency: 3 or more drinks per day Alcohol type: beer, wine and other details: Recent heavy hard liquor intake, prior intermittent beer intake, 1-3/time. substance use type: former substance user and marijuana what type of physical activity do you participate in: walking, bicycling and other details: LEG LIFTS frequency: daily sharon/taoism: None seatbelt use: always ROS ROS Narrative Admission Review of Systems: CONSTITUTIONAL: No weight loss, fever, chills, + weakness or fatigue. HEENT: Eyes: No visual loss, blurred vision, double vision or yellow sclerae. Ears, Nose, Throat: No hearing loss, sneezing, congestion, runny nose or sore throat. SKIN: No rash or itching, lesions, wounds. CARDIOVASCULAR: No chest pain, chest pressure or chest discomfort, palpitations, edema, orthopnea, syncopal events. RESPIRATORY: No shortness of breath, cough or sputum, wheezing, hemoptysis. GASTROINTESTINAL: + anorexia, nausea, vomiting, abdominal pain/cramping. No diarrhea, melena, BRBPR. GENITOURINARY: No dysuria, frequency, urgency or retention. NEUROLOGICAL: + Tremulous, underlying seizure disorder. Dizziness, syncope, paralysis, ataxia, numbness or tingling in the extremities, focal weakness, change in bowel or bladder control. MUSCULOSKELETAL: + muscle, back pain, joint pain or stiffness. HEMATOLOGIC: + Chronic anemia, easy bleeding/bruising. LYMPHATICS: No enlarged nodes. No history of splenectomy. PSYCHIATRIC: + History of anxiety and depression. ENDOCRINOLOGIC: + reports of sweating, cold or heat intolerance. No polyuria or polydipsia. ALLERGIES: No history of asthma, hives, eczema or rhinitis. Vital Signs Vital Signs Vital Signs: 07/27/24 18:02 07/27/24 19:48 07/27/24 20:56 Temperature 98.3 F Temperature Source Oral Pulse Rate 89 110 H 115 H Respiratory Rate 45 H 16 23 H Blood Pressure 127/100 H 176/110 H 135/93 H Blood Pressure Mean 109 132 107 Pulse Ox 100 94 95 Oxygen Delivery Method Room Air Room Air Room Air Weight Weight: 163 lb 9.328 oz Body Mass Index (BMI) 28.0 Physical Exam Narrative Physical Examination: General: Awake, alert, oriented x 3 and cooperative, laying in the ED bed, uncomfortable appearing, ongoing nausea, abdominal cramping she notes. Skin: Normal color, normal turgor, no icterus, no cyanosis except occasional very staged ecchymoses, abrasions. HEENT: AT/NC, EOMI, PERRLA, dry MM, no carotid bruits or JVD noted. Lungs: Diminished, greater bases, mildly increased respiratory rate but no distress, no rales, ronchi or wheezing. Heart: Tachycardic with currently regular rhythm; no gallop, rub audible. Abdomen: Soft, mild generalized discomfort but no rebound or guarding, ND, hyperactive BS, no markedly appreciated HSM. Extremities: No cyanosis, clubbing, or edema. Neurological: Patient awake, alert, oriented as noted, cognitive function intact; pupils equally reactive to light and accommodation, cranial nerves grossly normal, moving all 4 extremities, no focal deficits, strength moderately to severely globally decreased secondary to acute complaints, tremulous appearing. Psychiatric: Affect appears fatigued, uncomfortable, no acute evidence of depressive or anxiety feelings but does have underlying history. Results Lab / Micro Data 07/27/24 18:00 07/27/24 18:00 Labs: Laboratory Results - last 24 hr 07/27/24 18:00: WBC 4.0 L, RBC 3.75 L, Hgb 12.3, Hct 37.0, MCV 98.7, MCH 32.8 H, MCHC 33.2, RDW Std Deviation 53.9 H, RDW Coeff of [place] 14.6, Plt Count 127 L, MPV 10.7, Immature Gran % (Auto) 0.500, Neut % (Auto) 78.9 H, Lymph % (Auto) 14.3 L, [place] % (Auto) 5.5, Eos % (Auto) 0.3, Baso % (Auto) 0.5, Absolute Neuts (auto) 3.2, Absolute Lymphs (auto) 0.57 L, Nucleated RBC % 0, Sodium 138, Potassium 3.4 L, Chloride 103, Carbon Dioxide 17.0 L, Anion Gap 18 H, BUN 7, Creatinine 0.75, Estim Creat Clear Calc 85.59, Est GFR (MDRD) Af Amer 104, Est GFR (MDRD) Non-Af 86, BUN/Creatinine Ratio 9.3 L, Glucose 176 H, Calcium 9.3, Total Bilirubin 3.50 H, Direct Bilirubin 1.09 H, AST 142 H, ALT 59 H, Alkaline Phosphatase 134 H, Total Protein 8.0, Albumin 3.6, Globulin 4.4 H, Lipase 17 L, Ethyl Alcohol < 3.0 07/27/24 19:55: Serum , Qual NEGATIVE 07/27/24 20:31: Urine Opiates Screen NEGATIVE, Urine Methadone Screen NEGATIVE, Ur Barbiturates Screen POSITIVE H, Ur Phencyclidine Scrn NEGATIVE, Ur Amphetamines Screen NEGATIVE, MDMA (Ecstasy) Screen NEGATIVE, U Benzodiazepines Scrn NEGATIVE, Urine Cocaine Screen NEGATIVE, U Cannabinoids Screen POSITIVE H, Ur Drug Screen Comment Imaging Radiology Impression Brain CT 07/27/24 18:52 IMPRESSION: No CT evidence of acute intracranial pathology. Reading Location: [facility] Assessment & Plan Assessment/Plan (1) Alcohol withdrawal: PLAN: Plan The patient is a 54 y/o F w/ PMHx: Chronic thrombocytopenia, Anxiety and Depression/Bipolar disorder, Seizure disorder, Chronic migraines, Chronic back pain, Cannabis chronic use, Tobacco use, Chronic anemia/ Fe deficiency anemia, HTN, Allergic rhinitis, EtOH abuse, CAD s/p PCI, recent discharge 07/10/2024 secondary to delirium tremens with underlying alcohol abuse with electrolyte disturbances with urinalysis concerning for UTI placed on Rocephin initially and discharged on Keflex with final urine culture from 07/10/2024 with no growth exhibited in addition to acute on chronic thrombocytopenia as well as acute on chronic hyperbilirubinemia and transaminitis felt secondary to alcohol toxicity with upon discharge recommendation of home health at home versus skilled facility which she declined per review of discharge note who presents to the [facility] ED on 07/27/2024 with history of resumption of alcohol intake approximate 1 pint of liquor daily since her discharge with last alcohol intake the evening prior who now re-presents with again noted acute EtOH withdrawal, onset starting over the course of the day and worsening with onset of nausea, tremors, agitation, tactile disturbances. Patient interested in attaining sober status. #1. Acute Toxic/Metabolic Encephalopathy secondary to Acute EtOH Withdrawal with persistent underlying alcohol abuse with history of previous delirium tremens complicated by also underlying seizure disorder/epilepsy with acute on chronic transaminitis, acute on chronic hyperbilirubinemia secondary to alcoholic hepatitis, continue to worsen: Will admit to PCU to be cautious given significant seizure history and previous DVT history. Given continued interest in sobriety, will initiate and continue on protocol with taper course of Phenobarbital but if repeat CMP with worsening liver function may need to consider transitioning to ativan shorter acting regimen but will monitor w/ overlapping CIWA with ativan as needed gabapentin, Catapres, Bentyl, Vistaril, IV fluids, IV antiemetics, Tylenol as needed for pain. Will consult Case management for assistance for transition to next level of rehabilitation care. Mag, phos pending. Maintain on CIWA protocol concurrently. Given quick return would benefit strongly from more structured discharge plan aside home but unclear if she will agree at time of discharge. Patient bilirubin as well as LFTs have continued to rise, would benefit from follow-up with gastroenterology and as noted taper change. #2. Hypokalemia: Admission K+ 3.4, magnesium level requested, supplementation given, repeat level in AM. #3. Hyperglycemia, secondary to chronic alcohol abuse: Most recent hemoglobin A1c 03/11/2024 4.7%, will continue evaluation and treatment as noted, continue to hydrate and if repeat assessment significantly notable for hyperglycemia ongoing despite withdrawal treatment may consider repeat testing. #4. Chronic thrombocytopenia, alcohol abuse/toxicity related: Admission platelet 127, improved from recent presentation, stable compared to previous baseline. #5. History SVT: Patient with known history, will supplement electrolytes as needed, mag and Phos levels also requested, will maintain on PCU as noted.. #6. Seizure disorder/epilepsy: Following with Dr. Henderson, last noted evaluation 01/29/24, will continue antiepileptic regimen including zonisamide. Would benefit from earlier follow-up with neurology at discharge. #7. CAD: Status post PCI 2016 of unclear location, continue aspirin, not on statin, not on beta-santiago therapy, continue lisinopril regimen, would benefit from follow-up with cardiology follow-up outpatient. #9. Hypertension: Continue home regimen including lisinopril, spironolactone, PRN hydralazine. #10. Anxiety depression/bipolar disorder: We will continue patient home escitalopram regimen, given this reported history would benefit from consideration of broadening regimen to also include mood stabilizer, encourage continued outpatient follow-up. #11. Chronic migraines: Not on chronic prophylactic regimen, mild headache upon current presentation, will have as needed regimen. #12. Tobacco Abuse: Encouraged cessation, inpatient consultation per RT, NR if desired. #13. Chronic back pain: Encourage frequent positional changes, offloading. #14. Chronic cannabis use: Urine drug screen requested. #15. Chronic anemia/iron deficiency anemia: Admission CBC with hemoglobin 12.3, MCV 98.7, baseline hemoglobin commonly 12, stable. #16. Allergic rhinitis: Per current list does not appear to be on any regimen, noted history previously. #17. DVT prophylaxis: Low risk for type of admission for EtOH withdrawal treatment. Charges/Coding Visit Charges Inpatient E&M: 32945 Init Hosp L3
--- NOTE | 2024-07-27 21:51 | CM.ED ---
Social Work SW met with patient due to patient requesting RAMP. Patient states she came in today because she would like help with detoxing. Patient stated she did not have any questions regarding the program as she has been through it before. No further needs identified. Kelly Tolentino, METABOLIC SPECIALIST, FOOD AND BEVERAGE ASSISTANT MANAGER
[2024-07-27 21:56] VITALS: BP 160/102; PULSE 109; RESP 23; TEMP 36.6; O2SAT 96
[2024-07-27 22:05] VITALS: BP 170/101; PULSE 118; RESP 20; O2SAT 96
[2024-07-27 22:22] LABS: Magnesium 1.1 mg/dL (1.6-2.6); Phosphorus 2.4 mg/dL (2.5-4.9)
[2024-07-27 22:32] VITALS: BMI 27.6
[2024-07-27 22:34] VITALS: BP 154/102; PULSE 118; RESP 18; TEMP 37.1; O2SAT 98
[2024-07-27] MEDS: Ondansetron 8 MG Tablet PO (23:00)
[2024-07-27] MEDS: Phenobarbital 32.4 MG Tablet 64.8 MG PO (23:00)
[2024-07-27] MEDS: Pantoprazole Sodium 40 MG in 0.9% Normal Saline (100mL MB+) 100 ML 330 MG IV (23:00)
[2024-07-27] MEDS: Lactated Ringers 1,000 ML 125 ML IV (23:00)
[2024-07-27] MEDS: Potassium Chloride Oral Tablet 20 MEQ 40 MEQ PO (23:01)
[2024-07-27] MEDS: ZONISAMIDE 100 MG CAPSULE 200 MG PO (23:10)
[2024-07-28] VITALS (7 sets, daily range): BP systolic 95–147; BP diastolic 64–98; PULSE 103–110; RESP 15–18; TEMP 36.6–36.9; O2SAT 97–100
[2024-07-28] MEDS: LORazepam 2 MG/ML Syringe IV (02:18)
[2024-07-28] MEDS: 0.9% Saline Lock 10 ML Syringe IV ×2 (02:19→22:12)
[2024-07-28] MEDS: Phenobarbital 32.4 MG Tablet 64.8 MG PO ×6 (03:15→23:11)
--- NOTE | 2024-07-28 06:37 | PCM.HOSP.N ---
Hospitalist Note K, Phos, mag all decreased, will supplement and repeat level mag, phos later in the day.
[2024-07-28 07:47] LABS: Absolute Lymphocyte Count 0.68 X10^3/uL (0.83-4.51); Basophil# 0.01 X10^3/uL; Basophil% 0.2 % (0-1); Hematocrit 32.6 % (37-47); Hemoglobin 10.8 g/dL (12.0-15.0); Lymphocyte # 0.68 X10^3/ul (0.83-4.51); Lymphocyte % 16.7 % (19-41); Mean Corp Hgb Conc 33.1 g/dL (32-36); Mean Corpuscular Volume 99.7 fL (81-99); Mean Platelet Vol. 10.5 fl (6.2-12.0); Monocyte# 0.32 X10^3/uL; Monocyte% 7.9 % (0-10); NRBC Flagged by Analyzer 0 % (0-5); Neutrophil # 3.04 X10^3/uL (2.7-7.7); Platelet Count 102 K/mm3 (150-450); RBC Distribution Width CV 14.9 % (11.6-14.6); RBC Distribution Width SD 54.7 fl (35.1-43.9); Red Blood Count 3.27 M/mm3 (4.2-5.4); White Blood Count 4.1 K/mm3 (4.4-11.0)
[2024-07-28] MEDS: Potassium Phosphate 30 MM in 0.9% Normal Saline (250mL Bag) 250 ML 42 MM IV (08:08)
[2024-07-28] MEDS: Thiamine Hydrochloride 100 MG Tablet PO (08:21)
[2024-07-28] MEDS: Multivitamins,Ther W-Minerals Tablet 1 TABLET PO (08:21)
[2024-07-28] MEDS: Escitalopram Oxalate 20 MG Tablet PO (08:21)
[2024-07-28] MEDS: Lisinopril 5 MG Tablet PO (08:21)
[2024-07-28] MEDS: ZONISAMIDE 100 MG CAPSULE PO (08:22)
[2024-07-28] MEDS: Folic Acid 1 MG Tablet PO (08:22)
[2024-07-28] MEDS: Aspirin 81 MG TAB.CHEW PO (08:22)
[2024-07-28] MEDS: Spironolactone 25 MG Tablet 75 MG PO (08:22)
[2024-07-28 08:32] LABS: ALB/GLOB Ratio 0.8 RATIO (0.9-2.4); AST(SGOT) 86 U/L (15-37); Alanine Aminotransfer ALT/SGPT 48 U/L (13-56); Albumin, Serum 3.2 g/dL (3.2-5.0); Alkaline Phosphatase 111 U/L (45-117); Anion Gap 11 (5-15); BUN 7 mg/dL (7-18); Calcium,Total 8.8 mg/dL (8.5-10.1); Chloride 102 mmol/L (98-107); Creatinine, Serum 0.58 mg/dL (0.55-1.02); EST Glomerular Filtration Rate 114 mL/min (>60); Est Glom Filt Rate - Afr Amer 138 mL/min (>60); Estimated Creatinine Clearance 109.76 ml/min; Globulin 3.9 g/dL (2.2-4.2); Glucose 105 mg/dL (74-106); Potassium 3.3 mmol/L (3.5-5.1); Protein, Total 7.1 g/dL (6.4-8.2); Sodium Level 136 mmol/L (136-145)
[2024-07-28] MEDS: Magnesium Sulfate 4gm/100mL 4 GM/100 ML IV.SOLN. IV (10:33)
[2024-07-28 13:26] LABS: Magnesium 2.2 mg/dL (1.6-2.6); Phosphorus 3.8 mg/dL (2.5-4.9)
--- NOTE | 2024-07-28 13:30 | PCM.HOSP.N ---
Hospitalist Note Patient was admitted about 6:37 AM. She was sleeping but woke up. Admitted with acute alcohol withdrawal. She drinks 1 pint of whiskey every day started around teenage. Denies hallucination. Respiratory: Patient does not have history of asthma or does not do inhalers at home. Therefore Pulmicort discontinued Vitals reviewed. Mild sinus tachycardia. Labs reviewed. Mild hypokalemia potassium replaced. Total bilirubin 2.0 direct 1.09. AST more than ALT about 2 is to 1 ratio. Acute on chronic alcoholic hepatitis
[2024-07-28] MEDS: Spironolactone 25 MG Tablet PO (14:19)
[2024-07-28] MEDS: Pantoprazole Sodium 40 MG in 0.9% Normal Saline (100mL MB+) 100 ML 330 MG IV ×2 (14:44→22:12)
--- NOTE | 2024-07-28 15:54 | CHAPLAIN ---
Type of Pastoral Visit _x__ Initial Visit ___ Follow-up Visit ___ On-call Visit ___ General Patient Visit ___ Spiritual Assessment ___ Family Conference ___ Bereavement ___ Rapid Response ___ Code Blue ___ Other (describe below) Pastoral Care Referral From _x__ Patient ___ Family ___ Nurse ___ Physician ___ Mat Machine Operator ___ Instrumentation And Control Technician ___ Other (describe below) Sacrament/Intervention ___ Active listening ___ Anointing ___ Episcopalian ___ Bereavement ___ Communion ___ Sun exploration ___ ___ Life review _x__ Prayer ___ Reconciliation ___ Sacrament of Sick _x__ Supportive presence ___ Wedding ___ Other (describe below) Pastoral Comments patient was seen in this hospital a couple of months ago and has returned due to continual drinking and inability to cope with her son's murder; pt is slow to respond as she is resting in bed; pt does admit that she has been drinking due to inability to sleep and can't stop thinking about her son; pt acknowledges that son will never come back but she is having difficulty with her grief; pt was asked about support and counseling; pt states that she has a counselor; pt is offered support, listening ear, and prayer; pt is offered a return visit when she is more alert as well;
[2024-07-28 20:14] LABS: Hematocrit 31.8 % (37-47); Hemoglobin 10.7 g/dL (12.0-15.0); POSITIVE COUNT YES
[2024-07-28] MEDS: ZONISAMIDE 100 MG CAPSULE 200 MG PO (22:11)
[2024-07-29] VITALS (7 sets, daily range): BP systolic 92–116; BP diastolic 50–80; PULSE 87–109; RESP 16–18; TEMP 36.8–37.2; O2SAT 93–98
[2024-07-29] MEDS: Phenobarbital 32.4 MG Tablet 64.8 MG PO ×6 (02:28→22:07)
[2024-07-29] MEDS: Senna Tablet 2 TABLET PO (03:40)
[2024-07-29] MEDS: Thiamine Hydrochloride 100 MG Tablet PO (09:41)
[2024-07-29] MEDS: Spironolactone 50 MG Tablet 100 MG PO (09:41)
[2024-07-29] MEDS: Aspirin 81 MG TAB.CHEW PO (09:41)
[2024-07-29] MEDS: Multivitamins,Ther W-Minerals Tablet 1 TABLET PO (09:41)
[2024-07-29] MEDS: Folic Acid 1 MG Tablet PO (09:41)
[2024-07-29] MEDS: Escitalopram Oxalate 20 MG Tablet PO (09:42)
[2024-07-29] MEDS: 0.9% Saline Lock 10 ML Syringe IV (09:42)
[2024-07-29] MEDS: Pantoprazole Sodium 40 MG in 0.9% Normal Saline (100mL MB+) 100 ML 330 MG IV (09:42)
[2024-07-29] MEDS: ZONISAMIDE 100 MG CAPSULE PO (09:42)
--- NOTE | 2024-07-29 09:54 | ADDICTION ---
Met w pt to complete RAMP assessments. Pt was here less than a month ago for detox and upon d/c resumed drinking. She reports she has been drinking for many years prior to that with numerous medical complications. Pt reported she did make her appointment at [facility] on Jul 14 and plans to continue services there for outpatient substance use tx. Pt has Medicare and unfortunately it does not cover inpatient tx. Will look into other resources.
[2024-07-29] MEDS: 0.9% Normal Saline (100mL Bag) 100 ML 15 ML IV (10:15)
[2024-07-29] MEDS: Acetaminophen 325 MG Tablet 650 MG PO (11:22)
--- NOTE | 2024-07-29 17:53 | PN.HOSP_ITS ---
Reason for Visit Reason for Visit: Diagnoses Alcohol use, unspecified with withdrawal, unspecified (07/27/24) Objective Data Objective Data Vital Signs: Vital Signs Temp Pulse Resp BP Pulse Ox O2 Del Method 98.3 F 109 H 18 92/65 98 Room Air 07/29/24 15:16 07/29/24 15:16 07/29/24 15:16 07/29/24 15:16 07/29/24 15:16 07/29/24 15:16 Oxygen Delivery Method Room Air Weight: 160 lb 11.472 oz Body Mass Index (BMI) 27.6 Intake & Output: Intake and Output for Last 24 Hours 07/27/24 07/28/24 07/29/24 23:59 23:59 23:59 Intake Total 511 / 511 2060.00 / 2300.00 483.75 / 483.75 Balance 511 / 511 2060.00 / 2300.00 483.75 / 483.75 Lab / Micro Data 07/28/24 20:03 07/28/24 06:43 Labs: Laboratory Results - last 24 hr 07/28/24 20:03: Hgb 10.7 L, Hct 31.8 L Physical Exam Narrative Seen and examined. Patient is mild drowsy and lethargic. She states no acute complaint. Physical exam General: Awake. Mild drowsy. HEENT: Atraumatic, PERRLA, EOMI, Normocephalic Oral: No Gingival or Mucosal Lesions/ Ulcerations Neck: Supple, No JVD, Negative Carotid Bruits Chest wall/Lungs: Air entry diminished in bilateral lung bases. No crepitation/rhonchi Cardiovascular: Mild sinus tachycardia, Normal S1, Normal S2, No M/G/R Abdomen: Bowel Sounds Present, Soft, Non Tender, Non-Distended : No dysuria. No renal angle tenderness. No suprapubic tenderness. Extremities: No edema, Capillary Refill Less than 3 Seconds Skin: No rashes, No breakdown Musculoskeletal: No Tenderness to Palpation of Joints or Extremities Neurological: Cranial nerves II-XII grossly intact, DTR 2+/4. No acute focal neurological deficit. Psych/Mental Status: Flat affect Assessment & Plan Assessment/Plan (1) Alcohol withdrawal: PLAN: Plan The patient is a 54 y/o F who was admitted with acute alcohol withdrawal syndrome. #1. Acute Toxic/Metabolic Encephalopathy secondary to Acute EtOH Withdrawal syndrome with previous history of DT complicated by underlying seizure disorder: Patient is being admitted in PCU. Patient on phenobarbital based order set along with other adjunctive medications gabapentin, Bentyl, Vistaril, clonidine, Klonopin as needed for alcohol withdrawal symptom control. Patient is on thiamine and folate acid. CIWA monitor. chiropractic practice manager [id number] consulted. #2. Hypokalemia: Admission K+ 3.4, potassium was replaced. #3. Hyperglycemia, secondary to chronic alcohol abuse: Most recent hemoglobin A1c 03/11/2024 4.7%. Glucose 155 #4. Chronic thrombocytopenia, alcohol abuse/toxicity related: Admission platelet 127, repeat platelet count is 102,000. #5. History SVT: Patient with known history, heart rate is #6. Seizure disorder/epilepsy: Following with Dr. Henderson, last noted evaluation 01/29/24, will continue antiepileptic regimen including zonisamide. Would benefit from earlier follow-up with neurology at discharge. #7. CAD: Status post PCI 2016 of unclear location, continue aspirin, not on statin, not on beta-santiago therapy, continue lisinopril regimen, would benefit from follow-up with cardiology follow-up outpatient. #9. Hypertension: Continue home regimen including lisinopril, spironolactone, PRN hydralazine. #10. Anxiety depression/bipolar disorder: We will continue patient home escitalopram regimen, given this reported history would benefit from consideration of broadening regimen to also include mood stabilizer, encourage continued outpatient follow-up. #11. Chronic migraines: Not on chronic prophylactic regimen, mild headache upon current presentation, will have as needed regimen. #12. Tobacco Abuse: Encouraged cessation, inpatient consultation per RT, NR if desired. #13. Chronic back pain: Encourage frequent positional changes, offloading. #14. Chronic cannabis use: Urine drug screen requested. #15. Chronic anemia/iron deficiency anemia: Admission CBC with hemoglobin 12.3, MCV 98.7, baseline hemoglobin commonly 12, stable. #16. Allergic rhinitis: Per current list does not appear to be on any regimen, noted history previously. #17. DVT prophylaxis: Low risk for type of admission for EtOH withdrawal treatment. Charges/Coding Visit Charges Inpatient E&M: 09898 Subs Hosp L2
[2024-07-29] MEDS: Pantoprazole Sodium 40 MG Tablet PO (22:07)
[2024-07-29] MEDS: ZONISAMIDE 100 MG CAPSULE 200 MG PO (22:07)
[2024-07-30 02:00] VITALS: BP 95/64; BP 98/64; PULSE 96; RESP 16; TEMP 36.8; O2SAT 100
[2024-07-30] MEDS: Phenobarbital 32.4 MG Tablet 64.8 MG PO ×3 (02:26→11:53)
[2024-07-30 06:00] VITALS: BP 96/71; PULSE 88; RESP 18; TEMP 36.8; O2SAT 100
[2024-07-30 06:36] LABS: Absolute Lymphocyte Count 1.32 X10^3/uL (0.83-4.51); Absolute Neutrophil Count 2.1 X10^3/uL (2.0-7.7); Basophil# 0.03 X10^3/uL; Basophil% 0.8 % (0-1); Eosinophil# 0.11 X10^3/uL; Eosinophils% 2.8 % (0-5); Hematocrit 31.6 % (37-47); Lymphocyte # 1.32 X10^3/ul (0.83-4.51); Mean Corp Hgb Conc 31.6 g/dL (32-36); Mean Corpuscular Hgb 32.4 pg (27.0-32.0); Mean Corpuscular Volume 102.3 fL (81-99); Mean Platelet Vol. 11.3 fl (6.2-12.0); Monocyte# 0.41 X10^3/uL; Monocyte% 10.3 % (0-10); NRBC Flagged by Analyzer 0 % (0-5); Neutrophil # 2.12 X10^3/uL (2.7-7.7); Neutrophil % 52.8 % (47-70); POSITIVE COUNT YES; Platelet Count 90 K/mm3 (150-450); RBC Distribution Width CV 15.1 % (11.6-14.6); RBC Distribution Width SD 56.2 fl (35.1-43.9); Red Blood Count 3.09 M/mm3 (4.2-5.4)
[2024-07-30 07:09] LABS: Anion Gap 7 (5-15); BUN 5 mg/dL (7-18); BUN/Creat Ratio 7.8 RATIO (10-20); Calcium,Total 8.6 mg/dL (8.5-10.1); Chloride 107 mmol/L (98-107); Creatinine, Serum 0.64 mg/dL (0.55-1.02); EST Glomerular Filtration Rate 103 mL/min (>60); Est Glom Filt Rate - Afr Amer 125 mL/min (>60); Estimated Creatinine Clearance 99.47 ml/min; Glucose 86 mg/dL (74-106); Potassium 3.3 mmol/L (3.5-5.1); Sodium Level 137 mmol/L (136-145)
[2024-07-30 08:21] VITALS: BP 114/79; PULSE 92; RESP 16; TEMP 36.8; O2SAT 100
[2024-07-30] MEDS: Escitalopram Oxalate 20 MG Tablet PO (08:27)
[2024-07-30] MEDS: ZONISAMIDE 100 MG CAPSULE PO (08:27)
[2024-07-30] MEDS: Spironolactone 50 MG Tablet 100 MG PO (08:27)
[2024-07-30] MEDS: Thiamine Hydrochloride 100 MG Tablet PO (08:27)
[2024-07-30] MEDS: Lisinopril 5 MG Tablet PO (08:27)
[2024-07-30] MEDS: Aspirin 81 MG TAB.CHEW PO (08:27)
[2024-07-30] MEDS: Multivitamins,Ther W-Minerals Tablet 1 TABLET PO (08:27)
[2024-07-30] MEDS: Folic Acid 1 MG Tablet PO (08:27)
[2024-07-30] MEDS: Pantoprazole Sodium 40 MG Tablet PO (08:27)
[2024-07-30] MEDS: Acetaminophen 325 MG Tablet 650 MG PO (08:37)
--- NOTE | 2024-07-30 10:11 | DCINST_ITS ---
Discharge Instructions Diet Discharge Diet: No restrictions DC O2, CPAP, BIPAP needs Home O2 Discharge instructions: No Dressing / Incision Discharge Activity: Return to Normal Activity Weight Bearing Status: Weight bearing as tolerated Dressing / Incision Call your doctor if you observe: Fever of 101 or Higher, Coldness, Increased Pain, Numbness or Tingling, Change in Color, Inability to urinate, Inability to have a bowel movement, Shortness of breath, Dizziness, Fainting spells, Swelling in the ankles, Chest pain, Prolonged hiccupping, Increased palpitations (irregular heartbeat) and Calf discomfort Follow Up Care When: IN 2 WEEKS Test Results: Test results from this visit will be discussed in further detail at your follow- up appointment, if applicable. Discharge Plan Admission Admit Date/Time: 07/27/24 21:48 Primary Reason for Your Visit: Acute alcohol withdrawal syndrome Attending Provider: Norbert Jansen Primary Care Provider: Edis Nichols Consulting Providers: Raina Palomares Discharge Orders/Prescriptions Prescriptions: New thiamine HCl (vitamin B1) 100 mg Tablet 100 mg PO DAILYCM 30 Days Qty: 30 0RF nicotine 21 mg/24 hr Patch 24 Hour 21 mg transdermal DAILY 28 Days Qty: 28 0RF spironolactone 50 mg Tablet 100 mg PO DAILYCM 30 Days Qty: 60 0RF Rx Instructions: Hold for serum potassium more than 5.0 Continued flurbiprofen 100 mg tablet 100 mg PO TID PRN (Reason: pain) Qty: 270 2RF omeprazole 40 mg capsule,delayed release(DR/EC) 40 mg PO QDAY Qty: 90 1RF Rx Instructions: Take 30 minutes before breakfast folic acid 1 mg tablet 1 mg PO DAILY 30 Days Qty: 30 2RF escitalopram oxalate 20 mg tablet 20 mg PO DAILY Qty: 90 0RF lisinopril 5 mg tablet 5 mg PO DAILY Qty: 30 0RF trazodone 50 mg tablet 50 mg PO QHS PRN (Reason: insomnia) Qty: 10 0RF zonisamide 100 mg capsule 100 mg .ROUTE .COMPLEX Qty: 90 3RF Rx Instructions: Take 1 capsule PO every morning and 2 capsules every evening Discontinued spironolactone 25 mg tablet 75 mg PO DAILY Qty: 90 3RF Rx Instructions: Hold if K more than 5.0. Advised BMP in 3 days cephalexin 500 mg capsule 500 mg PO BID Qty: 4 0RF Referrals / Follow Up: Edis Nichols MD [Primary Care Provider] - In 1 Week Homer Guzman NP, [employer] [Med Staff - Adv Practice Prof] - (Unclear history of CAD) Disposition Disposition (needs filled in before D/C Order can be placed): Home, Self Care
[2024-07-30 11:54] VITALS: BP 104/73; PULSE 95; RESP 16; TEMP 36.7; O2SAT 95
--- NOTE | 2024-07-30 13:05 | DS.PCM_ITS ---
Providers Date of Admission: 07/27/24 Date of Discharge: 07/30/24 Primary Care Physician: Dr. Edis Nichols MD Reason For Visit: ETOH WITHDRAWL Diagnosis Discharge Diagnosis (1) Alcohol withdrawal: Status: Acute Code(s): F10.939 - Alcohol use, unspecified with withdrawal, unspecified Plan The patient is a 54 y/o F who was admitted with acute alcohol withdrawal syndrome. #1. Acute Toxic/Metabolic Encephalopathy secondary to Acute EtOH Withdrawal syndrome with previous history of DT complicated by underlying seizure disorder: Patient is being admitted in PCU. Patient on phenobarbital based order set along with other adjunctive medications gabapentin, Bentyl, Vistaril, clonidine, Klonopin as needed for alcohol withdrawal symptom control. Patient is on thiamine and folate acid. CIWA monitor. assistant center manager 180 consulted. 07/30: Patient is being discharged. She is sitting up. Alert and oriented x 3. She is fully coherent. Wants to go home. #2. Hypokalemia: Admission K+ 3.4, potassium was replaced. 07/30: Patient on spironolactone. Home dose of spironolactone 75 mg increased to 100 mg daily. Advised follow-up BMP in 2 weeks with PCP #3. Hyperglycemia, secondary to chronic alcohol abuse: Most recent hemoglobin A1c 03/11/2024 4.7%. Glucose 155 #4. Chronic thrombocytopenia, alcohol abuse/toxicity related: Admission platelet 127, repeat platelet count is 102,000. #5. History SVT: Patient with known history, heart rate is controlled #6. Seizure disorder/epilepsy: Following with Dr. Henderson, last noted evaluation 01/29/24, will continue antiepileptic regimen including zonisamide. Would benefit from earlier follow-up with neurology at discharge. #7. CAD: Status post PCI 2017 of unclear location, continue aspirin, not on statin, not on beta-santiago therapy, continue lisinopril regimen, would benefit from follow-up with cardiology follow-up outpatient. 07/30: Unclear about the details of PCI. Patient not on home aspirin platelet count is low with chronic thrombocytopenia from alcohol. Advised follow-up in cardiology office to further evaluate in detail. #9. Hypertension: Continue home regimen including lisinopril, spironolactone, PRN hydralazine. #10. Anxiety depression/bipolar disorder: We will continue patient home escitalopram regimen, given this reported history would benefit from consideration of broadening regimen to also include mood stabilizer, encourage continued outpatient follow-up. #11. Chronic migraines: Not on chronic prophylactic regimen, mild headache upon current presentation, will have as needed regimen. #12. Tobacco Abuse: Encouraged cessation #13. Chronic back pain: Encourage frequent positional changes, offloading. #14. Chronic cannabis use: Urine drug screen requested. #15. Chronic anemia/iron deficiency anemia: Admission CBC with hemoglobin 12.3, MCV 98.7, baseline hemoglobin commonly 12, stable. #16. Allergic rhinitis: Per current list does not appear to be on any regimen, noted history previously. #17. DVT prophylaxis: Low risk for type of admission for EtOH withdrawal treatment. Discharge medication reconciliation done. Discharge follow-up instructions completed. Discharge process discussed with the patient and all questions were answered to patient's satisfaction. Follow with PCP in 1 to 2 weeks Total time spent, exact 35 minutes on discharge meds reconciliation, examination, coordination of care with nurses and ancillary staff, review of imaging and blood test and discussion with the patient on follow-up instructions. Medications at Discharge Home Medications escitalopram oxalate 20 mg tablet 20 mg PO DAILY mental health #90 tabs 11/20/23 lisinopril 5 mg tablet 5 mg PO DAILY blood pressure #30 tabs 01/06/24 flurbiprofen 100 mg tablet 100 mg PO TID PRN pain #270 tabs 01/29/24 trazodone 50 mg tablet 50 mg PO QHS PRN insomnia #10 tabs 06/28/24 omeprazole 40 mg capsule,delayed release 40 mg PO QDAY reflux #90 caps 07/12/24 zonisamide 100 mg capsule 100 mg .Route .COMPLEX EPILEPSY #90 caps 07/13/24 folic acid 1 mg tablet 1 mg PO DAILY supplement 30 days #30 tabs 07/30/24 nicotine 21 mg/24 hr daily transdermal patch 21 mg transdermal DAILY 28 days #28 ea 07/30/24 spironolactone 50 mg tablet 100 mg (2 x 50 mg) PO DAILYCM 30 days #60 tabs 07/30/24 thiamine HCl (vitamin B1) 100 mg tablet 100 mg PO DAILYCM 30 days #30 tabs 07/30/24 Physical Exam Narrative Seen and examined. Patient is alert awake oriented x 3. CIWA score 0. Physical exam General: Fully alert. Sitting on the bed. No withdrawal symptoms. Coherent speech HEENT: Atraumatic, PERRLA, EOMI, Normocephalic Oral: No Gingival or Mucosal Lesions/ Ulcerations Neck: Supple, No JVD, Negative Carotid Bruits Chest wall/Lungs: Air entry diminished in bilateral lung bases. No crepitation/rhonchi Cardiovascular: Mild sinus tachycardia, Normal S1, Normal S2, No M/G/R Abdomen: Bowel Sounds Present, Soft, Non Tender, Non-Distended : No dysuria. No renal angle tenderness. No suprapubic tenderness. Extremities: No edema, Capillary Refill Less than 3 Seconds Skin: No rashes, No breakdown Musculoskeletal: No Tenderness to Palpation of Joints or Extremities Neurological: Cranial nerves II-XII grossly intact, DTR 2+/4. No acute focal neurological deficit. Psych/Mental Status: Flat affect Weight / BMI Weight Weight: 160 lb 11.472 oz Body Mass Index (BMI) 27.6 ABG / Lab / Microbiology Data 07/30/24 05:49 07/30/24 05:49 Laboratory: Laboratory Results - last 24 hr 07/30/24 05:49: WBC 4.0 L, RBC 3.09 L, Hgb 10.0 L, Hct 31.6 L, MCV 102.3 H, MCH 32.4 H, MCHC 31.6 L, RDW Std Deviation 56.2 H, RDW Coeff of Dixie 15.1 H, Plt Count 90 L, MPV 11.3, Immature Gran % (Auto) 0.300, Neut % (Auto) 52.8, Lymph % (Auto) 33.0, Dickson % (Auto) 10.3 H, Eos % (Auto) 2.8, Baso % (Auto) 0.8, Absolute Neuts (auto) 2.1, Absolute Lymphs (auto) 1.32, Nucleated RBC % 0, Sodium 137, P otassium 3.3 L, Chloride 107, Carbon Dioxide 22.0, Anion Gap 7, BUN 5 L, Creatinine 0.64, Estim Creat Clear Calc 99.47, Est GFR (MDRD) Af Amer 125, Est GFR (MDRD) Non-Af 103, BUN/Creatinine Ratio 7.8 L, Glucose 86, Calcium 8.6 D/C Instructions Discharge Diet: No restrictions Weight Bearing Status: Weight bearing as tolerated Call your doctor if you observe: Fever of 101 or Higher, Coldness, Increased Pain, Numbness or Tingling, Change in Color, Inability to urinate, Inability to have a bowel movement, Shortness of breath, Dizziness, Fainting spells, Swelling in the ankles, Chest pain, Prolonged hiccupping, Increased palpitations (irregular heartbeat) and Calf discomfort DC O2, CPAP, BIPAP Needs Home O2 Discharge instructions: No When: IN 2 WEEKS Meaningful Use Info Meaningful Use Meaningful Use Diagnoses (Choose all that apply): None applicable Ischemic Stroke Statin Dosing Therapy Reference: STATIN DOSE THERAPY REFERENCE: * Patients > 75 years receive moderate or high dose statin therapy. * Patients 75 years or YOUNGER should receive HIGH intensity statin dose unless contraindicated. You will be required to document reason for non-treatment if statin daily dose does not meet guidelines. HIGH DOSE STATIN THERAPY DAILY Atorvastatin > than or = to 40 mg Rosuvastatin > than or = to 20 mg Amlodipine + Atorvastatin > than or = to 2.5/40 mg Ezetimibe + Simvastatin 10/80 mg Simvastatin 80mg Discharge Plan Admission Admit Date/Time: 07/27/24 21:48 Primary Reason for Your Visit: Acute alcohol withdrawal syndrome Attending Provider: Norbert Jansen Primary Care Provider: Edis Nichols Consulting Providers: Raina Palomares Discharge Orders/Prescriptions Prescriptions: New thiamine HCl (vitamin B1) 100 mg Tablet 100 mg PO DAILYCM 30 Days Qty: 30 0RF nicotine 21 mg/24 hr Patch 24 Hour 21 mg transdermal DAILY 28 Days Qty: 28 0RF spironolactone 50 mg Tablet 100 mg PO DAILYCM 30 Days Qty: 60 0RF Rx Instructions: Hold for serum potassium more than 5.0 Continued flurbiprofen 100 mg tablet 100 mg PO TID PRN (Reason: pain) Qty: 270 2RF omeprazole 40 mg capsule,delayed release(DR/EC) 40 mg PO QDAY Qty: 90 1RF Rx Instructions: Take 30 minutes before breakfast folic acid 1 mg tablet 1 mg PO DAILY 30 Days Qty: 30 2RF escitalopram oxalate 20 mg tablet 20 mg PO DAILY Qty: 90 0RF lisinopril 5 mg tablet 5 mg PO DAILY Qty: 30 0RF trazodone 50 mg tablet 50 mg PO QHS PRN (Reason: insomnia) Qty: 10 0RF zonisamide 100 mg capsule 100 mg .ROUTE .COMPLEX Qty: 90 3RF Rx Instructions: Take 1 capsule PO every morning and 2 capsules every evening Discontinued spironolactone 25 mg tablet 75 mg PO DAILY Qty: 90 3RF Rx Instructions: Hold if K more than 5.0. Advised BMP in 3 days cephalexin 500 mg capsule 500 mg PO BID Qty: 4 0RF Referrals / Follow Up: Edis Nichols MD [Primary Care Provider] - In 1 Week Homer Guzman NP, [employer] [Med Staff - Adv Practice Prof] - (Unclear history of CAD) Disposition Disposition (needs filled in before D/C Order can be placed): Home, Self Care Charges/Coding Visit Charges Inpatient E&M: 04717 Disch Hosp >30min
--- NOTE | 2024-07-30 14:30 | PHA.DC.MR.R ---
Pharmacy [place] Med Reconciliation Pharmacy Service has performed discharge medication reconciliation for this patient. The patient's discharge medication list was reviewed for discrepancies and discrepancies were resolved. Medications at Discharge Home Medications escitalopram oxalate 20 mg tablet 20 mg PO DAILY mental health #90 tabs 11/20/23 lisinopril 5 mg tablet 5 mg PO DAILY blood pressure #30 tabs 01/06/24 flurbiprofen 100 mg tablet 100 mg PO TID PRN pain #270 tabs 01/29/24 trazodone 50 mg tablet 50 mg PO QHS PRN insomnia #10 tabs 06/28/24 omeprazole 40 mg capsule,delayed release 40 mg PO QDAY reflux #90 caps 07/12/24 zonisamide 100 mg capsule 100 mg .Route .COMPLEX EPILEPSY #90 caps 07/13/24 folic acid 1 mg tablet 1 mg PO DAILY supplement 30 days #30 tabs 07/30/24 nicotine 21 mg/24 hr daily transdermal patch 21 mg transdermal DAILY 28 days #28 ea 07/30/24 spironolactone 50 mg tablet 100 mg (2 x 50 mg) PO DAILYCM 30 days #60 tabs 07/30/24 thiamine HCl (vitamin B1) 100 mg tablet 100 mg PO DAILYCM 30 days #30 tabs 07/30/24
--- NOTE | 2024-07-30 16:25 | CHAPLAIN ---
Type of Pastoral Visit ___ Initial Visit _x__ Follow-up Visit ___ On-call Visit ___ General Patient Visit ___ Spiritual Assessment ___ Family Conference ___ Bereavement ___ Rapid Response ___ Code Blue ___ Other (describe below) Pastoral Care Referral From _x__ Patient ___ Family ___ Nurse ___ Physician ___ Drafter Assistant ___ Senior Energy Trader ___ Other (describe below) Sacrament/Intervention _x__ Active listening ___ Anointing ___ Rastafarian ___ Bereavement ___ Communion ___ Sun exploration ___ ___ Life review ___ Prayer ___ Reconciliation ___ Sacrament of Sick _x__ Supportive presence ___ Wedding ___ Other (describe below) Pastoral Comments patient is ready to be discharged; pt is offered support and encouraging words to continue her therapy, allow others to help her through her grief; pt is wished well
--- NOTE | 2024-08-15 22:10 | EX.ED.DYSGE1 ---
HPI History of Present Illness Chief Complaint: Substance Abuse [facility] Medical History Grief reaction Alcoholic liver disease Cannabis abuse Tobacco abuse Chronic alcohol abuse GERD (gastroesophageal reflux disease) Pancreatitis Elevated troponin Alcohol abuse Health care maintenance Trochanteric bursitis, right hip Chronic back pain Breast cancer screening Pain in joint involving right pelvic region and thigh Migraine without aura and without status migrainosus, not intractable Wears glasses Cancer Bipolar disorder Depression Anxiety Alcohol use Marijuana use Low iron Easy bruising Injury of back Injury of head and neck Loss of consciousness Syncope Seizures Smoker Leg cramps Cardiology follow-up encounter Hypertension Multiple joint pain Seizure disorder Heart valve disease Potassium (K) deficiency Vision problem History of pancreatitis Carpal tunnel syndrome Back problem Arthritis Anemia Seasonal allergies AA (alcohol abuse) UTERINE ABLATION Attempted suicide Difficulty balancing Seizures Diarrhea Hypertension Home Medications ?Medication ?Instructions ?Recorded ?Last Taken ?Type escitalopram oxalate 20 mg tablet 20 mg PO DAILY mental health #90 11/20/23 07/27/24 Rx tabs lisinopril 5 mg tablet 5 mg PO DAILY blood pressure #30 01/06/24 07/26/24 Rx tabs flurbiprofen 100 mg tablet 100 mg PO TID PRN pain #270 tabs 01/29/24 Unknown Rx trazodone 50 mg tablet 50 mg PO QHS PRN insomnia #10 tabs 06/28/24 Unknown Rx omeprazole 40 mg capsule,delayed 40 mg PO QDAY reflux #90 caps 07/12/24 07/26/24 Rx release zonisamide 100 mg capsule 100 mg .Route .COMPLEX EPILEPSY 07/13/24 Unknown Rx #90 caps folic acid 1 mg tablet 1 mg PO DAILY supplement 30 days 07/30/24 Unknown Rx #30 tabs nicotine 21 mg/24 hr daily 21 mg transdermal DAILY 28 days 07/30/24 Unknown Rx transdermal patch #28 ea spironolactone 50 mg tablet 100 mg (2 x 50 mg) PO DAILYCM 30 07/30/24 Unknown Rx days #60 tabs thiamine HCl (vitamin B1) 100 mg 100 mg PO DAILYCM 30 days #30 tabs 07/30/24 Unknown Rx tablet Allergy/AdvReac Type Severity Reaction Status Date / Time Penicillins Allergy Other Verified 07/27/24 18:06 bupropion HCl (From AdvReac Depression Verified 07/27/24 18:06 Wellbutrin) Family History Aunt Breast cancer Thyroid disorder Father Cancer Grandfather Cancer Mother Diabetes Hypertension Grandmother Myocardial infarction Heart disease Hypertension Cancer Hypercholesterolemia Other Cerebral aneurysm Surgical History Tubal ligation status History of endometrial ablation History of tubal ligation S/P skin cancer resection H/O heart artery stent bladder sling History of heart surgery Social History Smoking Status: Current every day smoker tobacco type: cigarettes Tobacco: How many years used: 26 Electronic Cigarette Use: not used second hand exposure: Yes alcohol intake: current alcohol intake frequency: 3 or more drinks per day Alcohol type: beer, wine and other details: Recent heavy hard liquor intake, prior intermittent beer intake, 1-3/time. substance use type: former substance user and marijuana what type of physical activity do you participate in: walking, bicycling and other details: LEG LIFTS frequency: daily sharon/anabaptist: None seatbelt use: always MDM MDM MDM Narrative Medical decision making narrative: please see note from 08/02/23 Radiography Diagnostic Testing: Clinical Impression(s) from Imaging Studies Brain CT 07/27/24 18:52 IMPRESSION: No CT evidence of acute intracranial pathology. Reading Location: [facility] Discharge Plan Disposition Disposition: Acute Care [facility] Discharge Date/Time: 07/27/24 22:11
== END 2024-07-30 14:00 | disposition home or self-care (01) | DRG 896 ==
LOC: ED 18:42 → PCU 07-28 07:40
PROVIDERS: Admitting Provider Family Medicine; Emergency Provider Emergency Medicine; PCP Internal Medicine; Visit Provider Internal Medicine
DX: F10.130 Alcohol abuse with withdrawal, uncomplicated (principal); G93.41 Metabolic encephalopathy; D69.59 Other secondary thrombocytopenia; D50.9 Iron deficiency anemia, unspecified; F12.90 Cannabis use, unspecified, uncomplicated; E87.6 Hypokalemia; K70.10 Alcoholic hepatitis without ascites; F31.9 Bipolar disorder, unspecified; G40.909 Epilepsy, unspecified, not intractable, without status epilepticus; I10 Essential (primary) hypertension; F17.210 Nicotine dependence, cigarettes, uncomplicated; F41.9 Anxiety disorder, unspecified; K21.9 Gastro-esophageal reflux disease without esophagitis; G43.009 Migraine without aura, not intractable, without status migrainosus; M54.9 Dorsalgia, unspecified; I25.10 Atherosclerotic heart disease of native coronary artery without angina pectoris; R73.9 Hyperglycemia, unspecified; G89.29 Other chronic pain; Z88.0 Allergy status to penicillin; Z87.19 Personal history of other diseases of the digestive system; Z79.899 Other long term (current) drug therapy; Z91.51 Personal history of suicidal behavior; Z86.718 Personal history of other venous thrombosis and embolism; Z86.79 Personal history of other diseases of the circulatory system; Z95.5 Presence of coronary angioplasty implant and graft
CPT/HCPCS: 36415; 70450; 80048; 80053; 80076; 80307; 82077; 83690; 83735; 84100; 84703; 85014; 85018; 85025; 93005; 97162; 99285; 99406; A4216; J2405

== ENCOUNTER → 2024-09-17 | Outpatient (CLI) | payer MEDICARE, MEDICAID, SELFPAY ==
[2024-09-17 16:39] LABS: Absolute Lymphocyte Count 1.61 X10^3/uL (0.83-4.51); Absolute Neutrophil Count 3.2 X10^3/uL (2.0-7.7); Basophil# 0.04 X10^3/uL; Basophil% 0.7 % (0-1); Eosinophil# 0.17 X10^3/uL; Hematocrit 31.9 % (37-47); Lymphocyte # 1.61 X10^3/ul (0.83-4.51); Lymphocyte % 28.1 % (19-41); Mean Corp Hgb Conc 31.3 g/dL (32-36); Mean Corpuscular Hgb 31.2 pg (27.0-32.0); Mean Corpuscular Volume 99.4 fL (81-99); Mean Platelet Vol. 9.6 fl (6.2-12.0); Monocyte# 0.67 X10^3/uL; Monocyte% 11.7 % (0-10); NRBC Flagged by Analyzer 0 % (0-5); Neutrophil # 3.21 X10^3/uL (2.7-7.7); Platelet Count 188 K/mm3 (150-450); RBC Distribution Width CV 14.6 % (11.6-14.6); RBC Distribution Width SD 53.1 fl (35.1-43.9); Red Blood Count 3.21 M/mm3 (4.2-5.4); White Blood Count 5.7 K/mm3 (4.4-11.0)
[2024-09-17 17:10] LABS: ALB/GLOB Ratio 1.2 RATIO (0.9-2.4); AST(SGOT) 25 U/L (<=31); Alanine Aminotransfer ALT/SGPT 18 U/L (<=34); Alkaline Phosphatase 87 U/L (35-104); Anion Gap 13 (5-15); BUN 13 mg/dL (4-19); BUN/Creat Ratio 11.7 RATIO (10-20); Calcium,Total 9.7 mg/dL (7.6-11.0); Carbon Dioxide 21.3 mmol/L (21.0-32.0); Chloride 105 mmol/L (98-108); Creatinine, Serum 1.08 mg/dL (0.70-1.20); EST Glomerular Filtration Rate 61 (>60); Globulin 3.4 g/dL (2.2-4.2); Glucose 98 mg/dL (70-99); Magnesium 1.6 mg/dL (1.5-2.2); Protein, Total 7.4 g/dL (5.9-8.4); Sodium Level 139 mmol/L (133-145); Total Bilirubin 0.35 mg/dL (0.00-1.30)
[2024-09-17 17:23] LABS: Vitamin B12 582 pg/mL (180-914)
== END | disposition home or self-care (01) ==
LOC: BIMLAB 15:01
PROVIDERS: PCP Internal Medicine; Referring Provider Physician Assistant; Visit Provider Physician Assistant
DX: I10 Essential (primary) hypertension (principal); F41.9 Anxiety disorder, unspecified; F32.9 Major depressive disorder, single episode, unspecified; D64.9 Anemia, unspecified
CPT/HCPCS: 80053; 82607; 83735; 85025

== ENCOUNTER 2024-10-02 04:28 | Emergency (ER) | payer MEDICARE, MEDICAID, SELFPAY ==
[2024-10-02 04:29] VITALS: BP 99/64; PULSE 103; RESP 20; TEMP 36.9; O2SAT 99; BMI 33.3
[2024-10-02 04:53] LABS: Mucous, Urine 0 SEEN /hpf (<or=2+); Red Blood Cells-Urine 0 SEEN /hpf (0-5)
[2024-10-02 04:55] LABS: Color, Urine Straw (Yellow); Glucose, Dipstick Normal (Normal); Ketone-Dipstick Negative (Negative); Leukocyte Esterase-Dipstick 25 /ul (Negative); Nitrite-Dipstick Negative (Negative); Occult Blood-Urine Negative /ul (Negative); Protein-Dipstick 15 mg/dl (Negative); Specific Gravity, Urine 1.015 (1.002-1.030); Urine Bilirubin Dipstick Negative (Negative); Urine Clarity Clear (Clear); Urine Urobilinogen 1 mg/dl (Normal); Urine pH 6.5 (5.0 - 8.0)
[2024-10-02 04:57] LABS: Absolute Lymphocyte Count 1.63 X10^3/uL (0.83-4.51); Absolute Neutrophil Count 2.8 X10^3/uL (2.0-7.7); Basophil# 0.03 X10^3/uL; Basophil% 0.6 % (0-1); Eosinophil# 0.19 X10^3/uL; Eosinophils% 3.6 % (0-5); Hematocrit 28.3 % (37-47); Hemoglobin 9.3 g/dL (12.0-15.0); Lymphocyte # 1.63 X10^3/ul (0.83-4.51); Lymphocyte % 31.1 % (19-41); Mean Corp Hgb Conc 32.9 g/dL (32-36); Mean Corpuscular Hgb 31.2 pg (27.0-32.0); Mean Platelet Vol. 9.4 fl (6.2-12.0); Monocyte# 0.52 X10^3/uL; Monocyte% 9.9 % (0-10); NRBC Flagged by Analyzer 0 % (0-5); Neutrophil # 2.84 X10^3/uL (2.7-7.7); Neutrophil % 54.2 % (47-70); Platelet Count 163 K/mm3 (150-450); RBC Distribution Width CV 14.5 % (11.6-14.6); RBC Distribution Width SD 50.5 fl (35.1-43.9); Red Blood Count 2.98 M/mm3 (4.2-5.4); White Blood Count 5.2 K/mm3 (4.4-11.0)
--- NOTE | 2024-10-02 05:02 | EDS_ITS ---
HPI History of Present Illness Chief Complaint: Edema Informant: patient Narrative Narrative: 54-year-old female presenting at 4 AM for edema in both of her legs that has been there for 2+ weeks. She states she went to her doctor at the beginning of this, they did not change any of her medications at that time. She states it is persistent and not getting any better. She is swollen up to about her knees, bilaterally and symmetrically without significant pain, no fevers or chills. She states she has a history of alcoholism, but she has been sober for about 52 days. She denies any history of kidney disease that she knows of. She has been urinating normally. She denies any dyspnea with exertion or orthopnea. No other illness. [facility] Medical History Grief reaction Alcoholic liver disease Cannabis abuse Tobacco abuse Chronic alcohol abuse GERD (gastroesophageal reflux disease) Pancreatitis Elevated troponin Alcohol abuse Health care maintenance Trochanteric bursitis, right hip Chronic back pain Breast cancer screening Pain in joint involving right pelvic region and thigh Migraine without aura and without status migrainosus, not intractable Wears glasses Cancer Bipolar disorder Depression Anxiety Alcohol use Marijuana use Low iron Easy bruising Injury of back Injury of head and neck Loss of consciousness Syncope Seizures Smoker Leg cramps Cardiology follow-up encounter Hypertension Multiple joint pain Seizure disorder Heart valve disease Potassium (K) deficiency Vision problem History of pancreatitis Carpal tunnel syndrome Back problem Arthritis Anemia Seasonal allergies AA (alcohol abuse) UTERINE ABLATION Attempted suicide Difficulty balancing Seizures Diarrhea Hypertension Home Medications ?Medication ?Instructions ?Recorded ?Last Taken ?Type escitalopram oxalate 20 mg tablet 20 mg PO DAILY [facility] #90 11/20/23 07/27/24 Rx tabs zonisamide 100 mg capsule 100 mg .Route .COMPLEX EPILE PSY 07/13/24 Unknown Rx #90 caps aripiprazole 2 mg tablet (Abilify) 2 mg PO QDAY Unknown History mirtazapine 15 mg tablet (Remeron) 15 mg PO QHS Unknown History naltrexone microspheres 380 mg 380 mg IM QMONTH Unknown History intramuscular suspension,extended release (Vivitrol) spironolactone 25 mg tablet 75 mg PO QDAY 09/17/24 Unk nown History lisinopril 5 mg tablet 5 mg PO DAILY blood pressure #30 09/20/24 Unknown Rx tabs folic acid 1 mg tablet 1 mg PO DAILY 10/02/24 Unkno wn History furosemide 40 mg tablet 40 mg PO DAILY #7 tabs 10/02 Unknown Rx naltrexone 50 mg tablet 50 mg PO DAILY 10/02/24 Unkn own History pantoprazole 40 mg tablet,delayed 40 mg PO DAILY 10/02 Unknown History release Allergy/AdvReac Type Severity Reaction Status Date / Time levetiracetam (From Keppra) Allergy Unknown seizures Verified 10/02/24 04:29 Penicillins Allergy Other Verified 10/02/24 04:29 bupropion HCl (From AdvReac Depression Verified 10/02/24 04:29 Wellbutrin) Family History Aunt Breast cancer Thyroid disorder Father Cancer Grandfather Cancer Mother Diabetes Hypertension Grandmother Myocardial infarction Heart disease Hypertension Cancer Hypercholesterolemia Other Cerebral aneurysm Surgical History Tubal ligation status History of endometrial ablation History of tubal ligation S/P skin cancer resection H/O heart artery stent bladder sling History of heart surgery Social History Smoking Status: Current every day smoker tobacco type: cigarettes Tobacco: How many years used: 26 Electronic Cigarette Use: not used second hand exposure: Yes alcohol intake: current alcohol intake frequency: 3 or more drinks per day Alcohol type: beer, wine and other details: Recent heavy hard liquor intake, prior intermittent beer intake, 1- 3/time. substance use type: former substance user and marijuana what type of physical activity do you participate in: walking, bicycling and other details: LEG LIFTS frequency: daily sharon/nondenominational: None seatbelt use: always ROS ROS ED Constitutional Constitutional ED: Denies chills or fever(s) Eyes Eyes: Denies change in vision or diplopia ENT ENT ED: Denies rhinorrhea or sore throat Cardiovascular Cardiovascular: Reports leg edema; Denies chest pain, lightheadedness, orthopnea, palpitations or syncope Respiratory/Chest Respiratory/Chest: Denies cough, dyspnea or orthopnea Gastrointestinal Gastrointestinal: Denies abdominal pain, diarrhea, nausea or vomiting Genitourinary Genitourinary ED: Denies dysuria or hematuria Musculoskeletal Musculoskeletal: Denies back pain or neck pain Integumentary Denies abscess or rash Neurologic Neurologic: Denies headache(s), paresthesias or weakness Psychiatric Psychiatric: Denies anxiety or suicidal thoughts EXAM Physical Exam Const Vital Signs: 10/02/24 04:29 10/02/24 04:34 Temperature 98.4 F Temperature Source Oral Pulse Rate 103 H Respiratory Rate 20 H Respiratory Effort Normal Respiratory Pattern Normal Blood Pressure 99/64 Blood Pressure Mean 75 Pulse Ox 99 Oxygen Delivery Method Room Air Positive well nourished and well developed General Appearance ED: well developed and NAD HEENT Reports moist mucous membranes normocephalic and atraumatic Eyes PERRL and EOMs intact bilaterally Neck full ROM, supple and no JVD Resp normal respiratory effort and clear to auscultation bilaterally Cardio regular rate, regular rhythm and no murmurs GI non-tender and non-distended Auscultation: normoactive bowel sounds Palpation: soft Back/Spine no CVA tenderness General Back: other FROM Extremity normal to inspection General Extremety ED: Yes edema; Negative for pulses abnormal or tenderness General Extremity: edema bilateral lower extremity Details: moderate (symmetric; no palp cords, no cellulitis/wound/abscess); Negative for pulses abnormal Neuro oriented x3, CN's II-XII intact bilaterally and no sensory deficits noted Sensorium / Orientation: awake and alert Motor Exam: strength 5/5 throughout Skin no rashes or lesions noted and no wounds MDM MDM MDM Narrative Medical decision making narrative: Differential includes renal failure, liver failure, heart failure, as well as venous insufficiency or diet-related. I reviewed her outpatient visit from a couple weeks ago, it seems that she had been an inpatient in the facility and had a lot of sitting around, and then the week after that she was eating a lot of salt-containing foods. I asked her about this, she states she has not really changed her diet but does not think she is eating badly. I reviewed her labs, they look good. She has no evidence of renal failure, her albumin and total protein levels are within normal limits, she is anemic but relatively stable compared with prior readings which I reviewed. No significant proteinuria. Will prescribe the patient a week of furosemide, she is already on a potassium sparing diuretic, and she can follow-up with her doctor as an outpatient. History & Record Review Additional record(s) reviewed:: Prior outpatient record Lab Data Attestation: I reviewed the patient's lab results. Labs: Laboratory Results - last 24 hr 10/02/24 10/02/24 04:45 04:50 WBC 5.2 RBC 2.98 L Hgb 9.3 L Hct 28.3 L MCV 95.0 MCH 31.2 MCHC 32.9 RDW Std Deviation 50.5 H RDW Coeff of Dixie 14.5 Plt Count 163 MPV 9.4 Immature Gran % (Auto) 0.600 Neut % (Auto) 54.2 Lymph % (Auto) 31.1 Barry % (Auto) 9.9 Eos % (Auto) 3.6 Baso % (Auto) 0.6 Absolute Neuts (auto) 2.8 Absolute Lymphs (auto) 1.63 Nucleated RBC % 0 Sodium 140 Potassium 3.9 Chloride 107 Carbon Dioxide 19.8 L Anion Gap 13 BUN 15 Creatinine 0.88 Estim Creat Clear Calc 79.44 Est GFR (MDRD) Non-Af 79 BUN/Creatinine Ratio 17.0 Glucose 158 H Calcium 9.5 Total Bilirubin 0.31 AST 19 ALT 11 Alkaline Phosphatase 93 NT pro BNP II 82 Total Protein 6.6 Albumin 3.6 Globulin 3.0 Albumin/Globulin Ratio 1.2 Urine Color Straw Urine Clarity Clear Urine pH 6.5 Ur Specific [place] 1.015 Urine Protein 15 H Urine Glucose (UA) Normal Urine Ketones Negative Urine Occult Blood Negative Urine Nitrite Negative Urine Bilirubin Negative Urine Urobilinogen 1 H Ur Leukocyte Esterase 25 H Urine RBC 0 SEEN Urine WBC 0-5 SEEN Ur Squamous Epith Cells 0-5 SEEN Urine Bacteria 2+ Urine Mucus 0 SEEN Discharge Plan Triage Chief Complaint: Edema ED Provider: Chris Roberts Dx/Rx/DC Orders Clinical Impression: Bilateral lower extremity edema Instructions: ED Peripheral Edema, Bilateral Prescriptions: New furosemide 40 mg tablet 40 mg PO DAILY Qty: 7 0RF No Action spironolactone 25 mg tablet 75 mg PO QDAY Vivitrol 380 mg suspension,extended rel recon 380 mg IM QMONTH aripiprazole [Abilify] 2 mg tablet 2 mg PO QDAY mirtazapine [Remeron] 15 mg tablet 15 mg PO QHS pantoprazole 40 mg tablet,delayed release (DR/EC) 40 mg PO DAILY naltrexone 50 mg tablet 50 mg PO DAILY folic acid 1 mg tablet 1 mg PO DAILY escitalopram oxalate 20 mg tablet 20 mg PO DAILY Qty: 90 0RF zonisamide 100 mg capsule 100 mg .ROUTE .COMPLEX Qty: 90 3RF Rx Instructions: Take 1 capsule PO every morning and 2 capsules every evening lisinopril 5 mg tablet 5 mg PO DAILY Qty: 30 3RF Primary Care Provider: Edis Nichols Referrals: Edis Nichols MD [Primary Care Provider] - 5-7 Days Print Language: Danish Disposition Disposition: Home, Self Care
[2024-10-02 05:31] LABS: ALB/GLOB Ratio 1.2 RATIO (0.9-2.4); AST(SGOT) 19 U/L (<=31); Alanine Aminotransfer ALT/SGPT 11 U/L (<=34); Albumin, Serum 3.6 g/dL (3.5-5.0); Alkaline Phosphatase 93 U/L (35-104); Anion Gap 13 (5-15); BUN 15 mg/dL (4-19); Calcium,Total 9.5 mg/dL (7.6-11.0); Carbon Dioxide 19.8 mmol/L (21.0-32.0); Chloride 107 mmol/L (98-108); Creatinine, Serum 0.88 mg/dL (0.70-1.20); EST Glomerular Filtration Rate 79 (>60); Estimated Creatinine Clearance 79.44 ml/min (50-250); Glucose 158 mg/dL (70-99); Potassium 3.9 mmol/L (3.3-5.1); Pro- Brain NATRIURETIC PEPTIDE 82 pg/mL (<=900); Protein, Total 6.6 g/dL (5.9-8.4); Sodium Level 140 mmol/L (133-145); Total Bilirubin 0.31 mg/dL (0.00-1.30)
[2024-10-02 06:01] LABS: Bacteria 2+ /hpf (None Seen); Squamous Epithelial Cells - UA 0-5 SEEN /hpf (5-10); White Blood Cells 0-5 SEEN /hpf (0-5)
== END 2024-10-02 06:08 | disposition home or self-care (01) ==
PROVIDERS: Emergency Provider Emergency Medicine; PCP Internal Medicine; Visit Provider Emergency Medicine
DX: R60.0 Localized edema (principal); F31.9 Bipolar disorder, unspecified; G40.909 Epilepsy, unspecified, not intractable, without status epilepticus; F10.21 Alcohol dependence, in remission; K21.9 Gastro-esophageal reflux disease without esophagitis; F17.210 Nicotine dependence, cigarettes, uncomplicated; I10 Essential (primary) hypertension; F41.9 Anxiety disorder, unspecified; Z87.19 Personal history of other diseases of the digestive system; Z95.5 Presence of coronary angioplasty implant and graft; Z79.899 Other long term (current) drug therapy
CPT/HCPCS: 80053; 81001; 83880; 85025; 99282; A4216

== ENCOUNTER → 2024-10-07 | Outpatient (CLI) | payer MEDICARE, MEDICAID, SELFPAY ==
[2024-10-07 13:36] LABS: Ammonia 30.4 umol/L (11-51)
== END | disposition home or self-care (01) ==
LOC: MTLAB 09:50
PROVIDERS: PCP Internal Medicine; Referring Provider Psychiatry & Neurology Neurology; Visit Provider Psychiatry & Neurology Neurology
DX: G40.909 Epilepsy, unspecified, not intractable, without status epilepticus (principal)
CPT/HCPCS: 36415; 82140

== ENCOUNTER → 2024-10-25 | Outpatient (CLI) | payer MEDICARE, MEDICAID, SELFPAY | END | disposition home or self-care (01) | PROVIDERS: PCP Internal Medicine | DX: G47.10 Hypersomnia, unspecified (principal) | CPT/HCPCS: 95810 ==

== ENCOUNTER → 2024-11-02 | Outpatient (CLI) | payer MEDICARE, SELFPAY ==
--- NOTE | 2024-11-02 08:46 | VDLE_ITS ---
Reason For Study Reason For Study: BLE Swelling RIGHT LEFT GSV is normal. GSV is normal. CFV is compressible, spontaneous, phasic, competent CFV is compressible, spontaneous, phasic, competent, and demonstrates normal augmentation. and demonstrates normal augmentation. FV is compressible, spontaneous, phasic, competent FV is compressible, spontaneous, phasic, competent and demonstrates normal augmentation. and demonstrates normal augmentation. POP V is compressible, spontaneous, phasic, competent POP V is compressible, spontaneous, phasic, competent and demonstrates normal augmentation. and demonstrates normal augmentation. T/P Trunk is compressible. T/P Trunk is compressible. PTV is compressible. PTV is compressible. RT PerV is compressible. LT PerV is compressible. Procedure This is a venous duplex using B-mode, color flow and spectral Doppler. Exam performed in department. The exam was diagnostic. VL/Venous Duplex US - Mateo Extrem Interpretation Summary Deep veins of the lower extremities are bilaterally patent and compressible seg mentally. There is no evidence of deep vein thrombosis on either side. Valvular competence appears intact within the p roximal deep venous systems bilaterally. The great saphenous veins appear bilaterally patent and compressible segmentall y. Ordering Physician: Hugo Kat Referring Physician: Edis Nichols Performed By: Chencho Griffin RVT
== END | disposition home or self-care (01) ==
LOC: CVS 08:45
PROVIDERS: PCP Internal Medicine; Referring Provider Physician Assistant; Visit Provider Physician Assistant
DX: R60.0 Localized edema (principal); M79.604 Pain in right leg; M79.605 Pain in left leg
CPT/HCPCS: 93970

== ENCOUNTER → 2024-11-24 | Outpatient (CLI) | payer MEDICARE, SELFPAY ==
--- NOTE | 2024-11-24 12:59 | ECHOD_ITS ---
Reason For Study Reason For Study: Murmur Procedure This was a 2D Doppler, Color Flow transthoracic echocardiogram. Exam performed in department. Left Ventricle Normal LV size. Left ventricular systolic function is normal. The left ventricular ejection fraction is 60 %. No regional wall motion abnormalities noted. Right Ventricle Normal RV size. Normal systolic function. Atria The left atrium is mildly enlarged. The right atrium is mildly enlarged. Mitral Valve Normal mitral valve. Tricuspid Valve Normal tricuspid valve. Mild tricuspid valve insufficiency. Pulmonary artery systolic pressure is 26 mmHg. Aortic Valve Trisinus/trileaflet aortic valve. Pulmonic Valve Normal pulmonic valve. Great Vessels Normal aortic root. The pulmonary artery is normal size. Inferior vena cava collapse with respiration. Pericardium/Pleural No pericardial effusion. MMode/2D Measurements & Calculations LVIDd: 5.1 cm IVSd: 0.90 cm LA dimension: 4.1 cm LVIDs: 3.1 cm LVPWd: 1.0 cm FS: 38.8 % LAV(MOD-bp): 59.8 ml LVAd ap4: 28.8 cm2 SV(MOD-sp4): 53.6 ml LAV(MOD-bp) Indexed: 32.0 ml/m2 LVLd ap4: 8.4 cm SI(MOD-sp4): 28.6 ml/m2 LAV(MOD-sp2): 63.1 ml EDV(MOD-sp4): 81.1 ml LAV(MOD-sp4): 56.8 ml EDV(sp4-el): 84.2 ml LVAs ap4: 14.3 cm2 LVLs ap4: 6.5 cm ESV(MOD-sp4): 27.6 ml ESV(sp4-el): 26.9 ml EF(MOD-sp4): 66.0 % EF(sp4-el): 68.1 % SV(sp4-el): 57.3 ml LA A4 area: 20.4 cm2 RA A4 area: 22.7 cm2 Time Measurements MV dec time: 0.20 sec Doppler Measurements & Calculations MV E max jono: 101.9 cm/sec Lat Peak E' Jono: 12.7 cm/sec Med Peak E' Jono: 10.1 cm/sec MV A max jono: 42.8 cm/sec E/E' lat: 8.0 E/E' med: 10.1 MV E/A: 2.4 MV V2 max: 108.7 cm/sec MV P1/2t max jono: 109.4 cm/sec Ao V2 max: 124.2 cm/sec MV max P.7 mmHg MV P1/2t: 118.7 msec Ao max P.2 mmHg MV V2 mean: 52.2 cm/sec MV mean P.4 mmHg MV dec slope: 269.8 cm/sec2 MV V2 VTI: 33.6 cm MVA(P1/2t): 1.9 cm2 LV V1 max: 89.4 cm/sec MR max jono: 460.5 cm/sec TR max jono: 239.7 cm/sec LV V1 max P.2 mmHg MR max P.8 mmHg TR max P.0 mmHg MR mean jono: 341.3 cm/sec MR mean P.8 mmHg MR VTI: 154.8 cm ECHO/Echo Complete Interpretation Summary Normal LV size. Left ventricular systolic function is normal. The left ventricular ejection fraction is 60 %. The left atrium is mildly enlarged. The right atrium is mildly enlarged. Pulmonary artery systolic pressure is 26 mmHg. Ordering Physician: Lorne Henderson Referring Physician: Lorne Henderson Performed By: Rob Roberson and Student
== END | disposition home or self-care (01) ==
LOC: CVS 12:58
PROVIDERS: PCP Internal Medicine; Referring Provider Psychiatry & Neurology Neurology; Visit Provider Psychiatry & Neurology Neurology
DX: R01.1 Cardiac murmur, unspecified (principal)
CPT/HCPCS: 93306

== ENCOUNTER → 2024-12-07 | Outpatient (CLI) | payer MEDICARE, SELFPAY ==
[2024-12-07 11:15] LABS: Ferritin 19 ng/mL (22-378); Iron 39 ug/dL (50-170)
[2024-12-09 20:08] LABS: Folate, Hemolysate Test 518.0 ng/mL (Not Estab.); Folate, RBC (Hct) Test 33.3 % (34.0-46.6); Folates, RBC Test 1556 ng/mL (>498); Vitamin B1, Thiamine 77.5 nmol/L (66.5-200.0)
== END | disposition home or self-care (01) ==
LOC: MTLAB 08:51
PROVIDERS: PCP Internal Medicine; Referring Provider Psychiatry & Neurology Neurology; Visit Provider Psychiatry & Neurology Neurology
DX: D64.9 Anemia, unspecified (principal); G40.909 Epilepsy, unspecified, not intractable, without status epilepticus; Z86.2 Personal history of diseases of the blood and blood-forming organs and certain disorders involving the immune mechanism; I10 Essential (primary) hypertension
CPT/HCPCS: 36415; 82728; 82747; 83540; 84425; 84443; 85014

== ENCOUNTER → 2024-12-29 | Outpatient (CLI) | payer MEDICARE, SELFPAY | END | disposition home or self-care (01) | LOC: MTLAB 13:24 | PROVIDERS: PCP Internal Medicine; Referring Provider Psychiatry & Neurology Neurology; Visit Provider Psychiatry & Neurology Neurology | DX: G40.909 Epilepsy, unspecified, not intractable, without status epilepticus (principal) | CPT/HCPCS: 36415 ==

== ENCOUNTER → 2025-01-03 | Outpatient (CLI) | payer MEDICARE, SELFPAY ==
[2025-01-03 12:39] LABS: Hematocrit 34.1 % (37-47); Hemoglobin 10.7 g/dL (12.0-15.0); Immature Granulocytes Count 0.020 X10^3/uL (0.0-0.0); Mean Corp Hgb Conc 31.4 g/dL (32-36); Mean Corpuscular Volume 92.2 fL (81-99); Mean Platelet Vol. 10.4 fl (6.2-12.0); NRBC Flagged by Analyzer 0 % (0-5); Platelet Count 156 K/mm3 (150-450); RBC Distribution Width CV 14.6 % (11.6-14.6); RBC Distribution Width SD 49.2 fl (35.1-43.9); Red Blood Count 3.70 M/mm3 (4.2-5.4); White Blood Count 6.3 K/mm3 (4.4-11.0)
[2025-01-03 13:26] LABS: AST(SGOT) 20 U/L (<=31); Alanine Aminotransfer ALT/SGPT 20 U/L (<=34); Albumin, Serum 4.2 g/dL (3.5-5.0); Alkaline Phosphatase 121 U/L (35-104); Anion Gap 12 (5-15); BUN 10 mg/dL (4-19); BUN/Creat Ratio 10.1 RATIO (10-20); Calcium,Total 9.6 mg/dL (7.6-11.0); Carbon Dioxide 19.4 mmol/L (21.0-32.0); Chloride 108 mmol/L (98-108); Globulin 3.2 g/dL (2.2-4.2); Glucose 110 mg/dL (70-99); Potassium 3.5 mmol/L (3.3-5.1)
== END | disposition home or self-care (01) ==
LOC: BIMLAB 08:06
PROVIDERS: PCP Internal Medicine; Referring Provider Psychiatry & Neurology Neurology; Visit Provider Psychiatry & Neurology Neurology
DX: G40.909 Epilepsy, unspecified, not intractable, without status epilepticus (principal)
CPT/HCPCS: 36415; 80053; 85025

== ENCOUNTER 2025-03-10 05:54 | Day surgery (SDC) | payer MEDICARE, SELFPAY ==
--- NOTE | 2025-03-07 15:21 | PAT.ANESEVAL ---
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 When Was Last Pacemaker Check QUESTION #4 FULL TEXT: You/Your Family Experience fever (hyperthermia) with Anesthesia Last Oral Intake Last Oral intake: Last Oral Intake NPO since Meds taken in AM with sips of water? Meds patient instructed to take am of surgery PONV PONV - dump grounds checker: PONV - dump grounds checker Female Yes 03/07/25 14:58 HX of Motion Sickness No 03/07/25 14:58 HX of N/V After Surgery No 03/07/25 14:58 Non-Smoker No 03/07/25 14:58 Duration of Surgery greater No 03/07/25 14:58 than 60 minutes Number of Risk Factors 1 03/07/25 14:58 PONV Score Low Risk 03/07/25 14:58 Height & Weight Height & Weight: Anesthesia: Height & Weight Height 5 ft 3 in 02/08/25 11:13 Respiratory Assessment Respiratory Assessment - dump grounds checker: Respiratory Tract Infection Hx - dump grounds checker Hx Respiratory Tract Infection No 03/07/25 14:58 STOP Sleep Apnea STOP Sleep Apnea - dump grounds checker: STOP Sleep Apnea - dump grounds checker Hx Hypertension Yes 03/07/25 14:58 Hx Sleep Apnea No 03/07/25 14:58 CPAP No 09/07/24 13:11 BIPAP No 09/07/24 13:11 Do you snore loudly (louder No 03/07/25 14:58 than talking or can be heard Do you often feel tired/ No 03/07/25 14:58 fatigued/ sleepy during daytime? Has anyone observed you stop No 03/07/25 14:58 breathing during sleep? STOP Results Negative 03/07/25 14:58 QUESTION #5 FULL TEXT : Do you snore loudly (louder than talking or can be heard through closed doors)? Tobacco Use History Tobacco Use History - dump grounds checker: Tobacco Use History - dump grounds checker Tobacco Use Smoking Status Light Smoker (<10/day) 03/07/25 14:58 Hx Tobacco Use Yes 03/07/25 14:58 Years Smoking Packs Smoked per Day Smoking Cessation Date was within the last 15 years Hx Smoking Cessation Date Hx Smoking Cessation No 03/07/25 14:58 Counseling Hematologic Medial History Hematologic Hx - dump grounds checker: Hematologic Medical Hx - pharmacoepidemiologist Hx of Blood Transfusion No 03/07/25 14:58 Hx of Transfusion in last 3 No 03/07/25 14:58 Months Date of Last Transfusion (if within last 3 months) Ever experience any problems No 03/07/25 14:58 with transfusion(s)? Specify any problems Hx of Preganancy in last 3 No 03/07/25 14:58 Months Nurse Filling Out Transfusion JZOLLINGE 03/07/25 14:58 & Questions: Date: 03/07/25 03/07/25 14:58 Time: 15:01 03/07/25 14:58 Patient unable to answer at this time (ie. confused, unrespo /Reproduction History /Reproductive History - dump grounds checker: /Reproductive Hx- dump grounds checker Hx Now No 03/07/25 14:58 Gestational Age (in weeks): EDC: Hx Hx Para Hx Section SAB No 03/07/25 14:58 PFSH Medical History History of echocardiogram History of epilepsy Cholelithiasis History of UTI Grief reaction Alcoholic liver disease Cannabis abuse Tobacco abuse Chronic alcohol abuse GERD (gastroesophageal reflux disease) Pancreatitis Elevated troponin Alcohol abuse Health care maintenance Trochanteric bursitis, right hip Chronic back pain Breast cancer screening Pain in joint involving right pelvic region and thigh Migraine without aura and without status migrainosus, not intractable Wears glasses Cancer Bipolar disorder Depression Anxiety Alcohol use Marijuana use Low iron Easy bruising Injury of back Injury of head and neck Loss of consciousness Syncope Seizures Smoker Leg cramps Cardiology follow-up encounter Hypertension Multiple joint pain Seizure disorder Heart valve disease Potassium (K) deficiency Vision problem History of pancreatitis Carpal tunnel syndrome Back problem Arthritis Anemia Seasonal allergies AA (alcohol abuse) UTERINE ABLATION Attempted suicide Difficulty balancing Seizures Diarrhea Hypertension Home Medications ?Medication ?Instructions ?Recorded ?Last Taken ?Type escitalopram oxalate 20 mg tablet 20 mg PO DAILY [facility] #90 11/20/23 07/27/24 Rx tabs mirtazapine 15 mg tablet (Remeron) 15 mg PO QHS PRN sleep 09/17/24 Unknown History naltrexone microspheres 380 mg 380 mg IM QMONTH 09/17/24 Unknown History intramuscular suspension,extended release (Vivitrol) spironolactone 25 mg tablet 75 mg PO QDAY 09/17/24 Unknown History ibuprofen 600 mg tablet 600 mg PO TID PRN muscle/joint 12/07/24 Unknown Rx Held on 02/08/25. pain #90 tabs Instructions: Order Changed zonisamide 100 mg capsule 100 mg .Route .COMPLEX EPILEPSY 12/07/24 Unknown Rx #90 caps ferrous sulfate 325 mg (65 mg 325 mg PO QDAY #90 tabs 01/03/25 Unknown Rx iron) tablet nadolol 20 mg tablet 20 mg PO QDAY #30 tabs 01/03/25 Unknown Rx aripiprazole 2 mg tablet (Abilify) 2 mg PO QDAY #90 tabs 01/11/25 Unknown Rx pantoprazole 40 mg tablet,delayed 40 mg PO DAILY 3 months #90 tabs 02/08/25 Unknown Rx release calcium no.26 167 mg-magnesium 1 cap PO .QD 03/07/25 Unknown History no.15 83 mg-zinc 5 mg capsule (Lcscviz-Vfsfnlnzr-Blps Complex) multivitamin (Daily Value tablet) 1 tab PO DAILY 03/07/25 Unknown History vitamin E 670 mg (1,000 unit) 670 mg PO QDAY 03/07/25 Unknown History capsule Allergy/AdvReac Type Severity Reaction Status Date / Time levetiracetam (From Keppra) Allergy Unknown seizures Verified 03/07/25 14:43 Penicillins Allergy Other Verified 03/07/25 14:43 bupropion HCl (From AdvReac Depression Verified 03/07/25 14:43 Wellbutrin) Family History Aunt Breast cancer Thyroid disorder Father Cancer Grandfather Cancer Mother Diabetes Hypertension Grandmother Myocardial infarction Heart disease Hypertension Cancer Hypercholesterolemia Other Cerebral aneurysm Surgical History History of tooth extraction, class I edentulism Tubal ligation status History of endometrial ablation History of tubal ligation S/P skin cancer resection H/O heart artery stent bladder sling History of heart surgery Social History Smoking Status: Light Smoker (<10/day) Tobacco: How many years used: 26 Electronic Cigarette Use: not used second hand exposure: Yes alcohol intake: current alcohol intake frequency: 3 or more drinks per day Alcohol type: beer, wine and other details: Recent heavy hard liquor intake, prior intermittent beer intake, 1-3/time. substance use type: former substance user and marijuana what type of physical activity do you participate in: walking, bicycling and other details: LEG LIFTS frequency: daily sharon/episcopal: None seatbelt use: always Prior Cardiac Testing/Procedures Prior Cardiac Testing/Procedures: Echocardiogram (EF 60%) Addt'l Information Additional Findings: Previous EKG with Sinus Tach to SVT in July. > 4 METS Recommendation Anesthesia Recommendation Anesthesia recommendation: OPTIMIZED for anesthesia
[2025-03-10] VITALS (9 sets, daily range): BP systolic 74–92; BP diastolic 45–66; PULSE 64–74; RESP 16–18; TEMP 36.2–36.8; O2SAT 98–100; BMI 33.2
--- NOTE | 2025-03-10 06:34 | HP.PCM_ITS ---
HPI - General General Date of Admission: 03/10/25 Date of Service: 03/10/25 Chief Complaint: cirrhosis HPI Narrative FELTON ARMENTA, is a 54 F who presents [FELTON ARMENTA, is a 54 F who presents to the office today for initial consult. PCP referred for alcoholic cirrhosis. Pt reports episodes of LT sided back pain followed by diarrhea and vomiting. States BMs are 1-2 times daily and are Denies bloody or dark stools. Previously reports lower leg edema but has since resolved. Continues to avoid alcohol and Vivitrol injections. Patient states sometimes he gets LLQ pain which is not related to the food. She feels location left posteriolateal region between rib cage and iliac crest. No nausea or vomiting. Social history: Alcohol: She started drinking beer occasionally in high school. Gradually in her 20s she increased to 3-4 bottles mainly on weekends on occasion sometimes six packs. Then in late 30s he started drinking liquor, mainly Dami and whiskey usually 5-6 shots. About 7 years ago her and she started drinking 2 large bottle, 1/5 of the liter in 1 to 2 days. Again last emotional she lost her son and started heavy. She was admitted multiple times in [facility] and outside hospital for DT, alcohol withdrawal seizure. Smoking cigarettes: She smokes cigarettes about 15 cigarettes/day. She is thinking to quit. Substance use: She denies any substance in the past Family history: Denies autoimmune disease including autoimmune hepatitis, ulcerative colitis Crohn's disease or related to pancreas, adrenal gland, pituitary in first-degree relative [facility] Medical History History of echocardiogram History of epilepsy Cholelithiasis History of UTI Grief reaction Alcoholic liver disease Cannabis abuse Tobacco abuse Chronic alcohol abuse GERD (gastroesophageal reflux disease) Pancreatitis Elevated troponin Alcohol abuse Health care maintenance Trochanteric bursitis, right hip Chronic back pain Breast cancer screening Pain in joint involving right pelvic region and thigh Migraine without aura and without status migrainosus, not intractable Wears glasses Cancer Bipolar disorder Depression Anxiety Alcohol use Marijuana use Low iron Easy bruising Injury of back Injury of head and neck Loss of consciousness Syncope Seizures Smoker Leg cramps Cardiology follow-up encounter Hypertension Multiple joint pain Seizure disorder Heart valve disease Potassium (K) deficiency Vision problem History of pancreatitis Carpal tunnel syndrome Back problem Arthritis Anemia Seasonal allergies AA (alcohol abuse) UTERINE ABLATION Attempted suicide Difficulty balancing Seizures Diarrhea Hypertension Home Medications ?Medication ?Instructions ?Recorded ?Last Taken ?Type escitalopram oxalate 20 mg tablet 20 mg PO DAILY [employer] #90 11/20/23 03/09/25 Rx tabs mirtazapine 15 mg tablet (Remeron) 15 mg PO QHS PRN sl eep 09/17/24 Unknown History naltrexone microspheres 380 mg 380 mg IM QMONTH 02/08/25 History intramuscular suspension,extended release (Vivitrol) spironolactone 25 mg tablet 75 mg PO QDAY 09/17/2407/03 History ibuprofen 600 mg tablet 600 mg PO TID PRN muscle/keyla nt 12/07/24 03/10/25 Rx Held on 02/08/25. pain #90 tabs Instructions: Order Changed zonisamide 100 mg capsule 100 mg .Route .COMPLEX EPILE PSY 12/07/24 03/09/25 Rx #90 caps ferrous sulfate 325 mg (65 mg 325 mg PO QDAY #90 tabs 01/03/25 03/09/25 Rx iron) tablet nadolol 20 mg tablet 20 mg PO QDAY #30 tabs 01/0303/09/25 Rx aripiprazole 2 mg tablet (Abilify) 2 mg PO QDAY #90 ta bs 01/11/25 03/09/25 Rx pantoprazole 40 mg tablet,delayed 40 mg PO DAILY 3 mon ths #90 tabs 02/08/25 03/09/25 Rx release calcium no.26 167 mg-magnesium 1 cap PO .QD 03/07/25 03/09/25 History no.15 83 mg-zinc 5 mg capsule (Bavdyba-Kmokdjsam-Tidn Complex) multivitamin (Daily Value tablet) 1 tab PO DAILY 03/0703/09/25 History vitamin E 670 mg (1,000 unit) 670 mg PO QDAY 03/07/25 03/09/25 History capsule Allergy/AdvReac Type Severity Reaction Status Date / Time levetiracetam (From Keppra) Allergy Unknown seizures Verified 03/10/25 06:20 Penicillins Allergy Other Verified 03/10/25 06:20 bupropion HCl (From AdvReac Depression Verified 03/10/25 06:20 Wellbutrin) Family History Aunt Breast cancer Thyroid disorder Father Cancer Grandfather Cancer Mother Diabetes Hypertension Grandmother Myocardial infarction Heart disease Hypertension Cancer Hypercholesterolemia Other Cerebral aneurysm Surgical History History of tooth extraction, class I edentulism Tubal ligation status History of endometrial ablation History of tubal ligation S/P skin cancer resection H/O heart artery stent bladder sling History of heart surgery Social History Smoking Status: Light Smoker (<10/day) Tobacco: How many years used: 26 Electronic Cigarette Use: not used second hand exposure: Yes alcohol intake: current alcohol intake frequency: 3 or more drinks per day Alcohol type: beer, wine and other details: Recent heavy hard liquor intake, prior intermittent beer intake, 1- 3/time. substance use type: former substance user and marijuana what type of physical activity do you participate in: walking, bicycling and other details: LEG LIFTS frequency: daily sharon/anabaptism: None seatbelt use: always ROS Constitutional Constitutional: Denies fatigue, fever(s), poor appetite, weight gain or weight loss Gastrointestinal Gastrointestinal: Denies belching, bloating, change in bowel habits, change in stool character, chewing difficulty, coffee ground emesis, constipation, cramping, diarrhea, dyspepsia, dysphagia, early satiety, excessive flatus, fecal incontinence, heartburn, hematemesis, hematochezia, hemorrhoids, loose stools, melena, nausea, odynophagia, rectal bleeding, tenesmus, vomiting or weight changes Vital Signs Vital Signs Vital Signs: 03/10/25 06:24 03/10/25 06:24 Temperature 97.1 F L Temperature Source Temporal Pulse Rate 64 Respiratory Rate 18 Respiratory Pattern Normal Blood Pressure 92/62 Blood Pressure Mean 72 Blood Pressure Source Monitor Blood Pressure Position Semi-Fowlers Blood Pressure Location Right Arm Pulse Ox 100 Oxygen Delivery Method Room Air Weight Weight: 187 lb 6.287 oz Body Mass Index (BMI) 33.2 Physical Exam Const alert, oriented x3, no apparent distress and healthy appearing General Appearance: cooperative GI normal to inspection, nondistended, normoactive bowel sounds, soft to palpation, non-tender and non-distended Percussion: normal to percussion Rectal Exam: deferred Assessment & Plan Assessment/Plan (1) LLQ abdominal pain: (2) Cirrhosis: PLAN: Assessment and Plan Assessment and Plan (1) Alcoholic hepatitis: Status: Acute Plan: At this time, it is not clear whether patient has cirrhosis but abdomen/pelvis CT scan in June shows mild nodular contour, heterogeneous and fatty infiltration. GB ultrasound in March 2024 shows solitary gallstone, 6 x 4 mm with no features of acute cholecystitis. Liver enlarged 20.1 cm no mass. Hepatopetal flow. Fatty infiltrate Labs show thrombocytopenia in the past even in October 2014, but trough was in June 2024, 28-30 K and gradually it is recovering. Most recent 156K in December 31. Albumin 4.2. Globulin 3.2, A/G ratio 1.3. Liver ultrasound with elastography and spleen ordered. Advised monthly Vivitrol injection to continue. She also Vivitrol tablet which she takes if she gets delayed in Vivitrol injection. (2) LLQ abdominal pain: Status: Acute Plan: Possible differential includes gastritis/gastric ulcer/esophagitis. 1 may be splenic origin but her spleen is not enlarged and I individually reviewed the images and measure the spleen. Other may be musculoskeletal paraspinal pain Pantoprazole 40 mg daily prescribed. Needs EGD. Discontinue ibuprofen or other NSAIDs Orders: Orders ]
[2025-03-10] MEDS: Lactated Ringers 1,000 ML 15 ML IV (06:36)
--- NOTE | 2025-03-10 06:50 | PRE.ANES_ITS ---
ASA Classification* ASA Classification ASA Classification: 3 Assessment & Plan Anesthesia* Anesthesia Assessment Anesthesia Assessment: Discussed sedation and/or anesthesia options, risks, benefits, and alternatives with patient/parents/legal guardian/POA. Questions invited. The patient/parents/legal guardian/POA seems to understand and agrees to proceed with anesthesia plan. Reviewed the physical assessment, medical history, allergy history and patient home medications list prior to surgery/procedure/anesthetic and documented any changes. Performed airway and anesthesia risk assessments. Anesthesia Type Anesthesia Type: MAC History Source History Obtained from:: Patient and Chart Anesthesia Focused Assessment* Temperature: 97.1 F Pulse Rate: 64 Blood Pressure: 92/62 Respiratory Rate: 18 Pulse Ox: 100 Airway Assessment Mouth opens: >3 cm Mallampati Score: II Teeth Condition: Dentures Labs Anesthesia Preop lab: CBC WBC, (4.4-11.0) 6.3 K/mm3 01/03/25, 08:06 RBC, (4.2-5.4) 3.70 M/mm3 L 01/03/25, 08:06 Hgb, (12.0-15.0) 10.7 g/dL L 01/03/25, 08:06 Hct, (37-47) 34.1 % L 01/03/25, 08:06 Plt Count, (150-450) 156 K/mm3 01/03/25, 08:06 CHEMISTRY Potassium, (3.3-5.1) 3.5 mmol/L 01/03/25, 08:06 Sodium, (133-145) 140 mmol/L 01/03/25, 08:06 Magnesium, (1.5-2.2) 1.6 mg/dL 09/17/24, 15:01 Phosphorus, (2.5-4.9) 3.8 mg/dL 07/28/24, 12:52 BUN, (4-19) 10 mg/dL 01/03/25, 08:06 Creatinine, (0.70-1.20) 0.96 mg/dL 01/03/25, 08:06 Glucose, (70-99) 110 mg/dL H 01/03/25, 08:06 POC Glucose, (70-110) 155 mg/dL H 03/22/18, 18:47 TSH, (0.300-4.200) 1.910 uIU/mL 12/07/24, 08:53 COAG PT, (11.7-14.9) 19.4 SECONDS H 07/07/24, 16:04 Pre-Assessment Diagnosis/Proposed Procedure Planned Operative Procedure(s): EGD Anesthesia History Anesthesia History - early childhood aide classroom: Anesthesia History - early childhood aide classroom [facility]x [facility] 03/07/25 14:58 Any Problems With Anesthesia No 03/07/25 14:58 Cholinesterase deficiency No 03/07/25 14:58 You/Your Family Experience No 03/07/25 14:58 fever (hyperthermia) with Relationship Recent Exposure to Contagious No 03/10/25 06:24 Disease Does patient have nerve No 03/07/25 14:58 stimulator Patient instructed to have device shut off --Does patient have Pacemaker No 03/10/25 06:24 or ICD? When Was Last Pacemaker Check QUESTION #4 FULL TEXT: You/Your Family Experience fever (hyperthermia) with Anesthesia Last Oral Intake Last Oral intake: Last Oral Intake NPO since 04:00 03/10/25 06:24 Meds taken in AM with sips of Yes 03/10/25 06:24 water? Meds patient instructed to ibuprofen 600 mg this AM 03/10/25 06:24 take am of surgery PONV PONV - early childhood aide classroom: PONV - early childhood aide classroom Female Yes 03/07/25 14:58 HX of Motion Sickness No 03/07/25 14:58 HX of N/V After Surgery No 03/07/25 14:58 Non-Smoker No 03/07/25 14:58 Duration of Surgery greater No 03/07/25 14:58 than 60 minutes Number of Risk Factors 1 03/07/25 14:58 PONV Score Low Risk 03/07/25 14:58 Height & Weight Height & Weight: Anesthesia: Height & Weight Height 5 ft 3 in 03/10/25 06:24 Weight: 85 kg 03/10/25 06:24 Body Mass Index (BMI) 33.2 03/10/25 06:24 Respiratory Assessment Respiratory Assessment - early childhood aide classroom: Respiratory Tract Infection Hx - early childhood aide classroom Hx Respiratory Tract Infection No 03/07/25 14:58 STOP Sleep Apnea STOP Sleep Apnea - early childhood aide classroom: STOP Sleep Apnea - early childhood aide classroom Hx Hypertension Yes 03/07/25 14:58 Hx Sleep Apnea No 03/07/25 14:58 CPAP No 09/07/24 13:11 BIPAP No 09/07/24 13:11 Do you snore loudly (louder No 03/07/25 14:58 than talking or can be heard Do you often feel tired/ No 03/07/25 14:58 fatigued/ sleepy during daytime? Has anyone observed you stop No 03/07/25 14:58 breathing during sleep? STOP Results Negative 03/07/25 14:58 QUESTION #5 FULL TEXT : Do you snore loudly (louder than talking or can be heard through closed doors)? 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 Specify any problems Hx of Preganancy in last 3 No 03/07/25 14:58 Months Nurse Filling Out Transfusion DandreZOJESUS 03/07/25 14:58 & Questions: Date: 03/07/25 03/07/25 14:58 Time: 15:01 03/07/25 14:58 Patient unable to answer at this time (ie. confused, unrespo /Reproduction History /Reproductive History - early childhood aide classroom: /Reproductive Hx- early childhood aide classroom Hx Now No 03/07/25 14:58 Gestational Age (in weeks): EDC: Hx Hx Para Hx Section SAB No 03/07/25 14:58 Active Medications Active Medications: Current Medications Generic Name Dose Route Start Last Admin Trade Name Freq PRN Reason Stop Dose Admin Lactated Ringer's 1,000 mls @ 15 mls/hr 03/10/25 06:15 03/10/25 06:36 IV 15 mls/hr .Q48H JORDYN Administration PFSH Medical History History of echocardiogram History of epilepsy Cholelithiasis History of UTI Grief reaction Alcoholic liver disease Cannabis abuse Tobacco abuse Chronic alcohol abuse GERD (gastroesophageal reflux disease) Pancreatitis Elevated troponin Alcohol abuse Health care maintenance Trochanteric bursitis, right hip Chronic back pain Breast cancer screening Pain in joint involving right pelvic region and thigh Migraine without aura and without status migrainosus, not intractable Wears glasses Cancer Bipolar disorder Depression Anxiety Alcohol use Marijuana use Low iron Easy bruising Injury of back Injury of head and neck Loss of consciousness Syncope Seizures Smoker Leg cramps Cardiology follow-up encounter Hypertension Multiple joint pain Seizure disorder Heart valve disease Potassium (K) deficiency Vision problem History of pancreatitis Carpal tunnel syndrome Back problem Arthritis Anemia Seasonal allergies AA (alcohol abuse) UTERINE ABLATION Attempted suicide Difficulty balancing Seizures Diarrhea Hypertension Home Medications ?Medication ?Instructions ?Recorded ?Last Taken ?Type escitalopram oxalate 20 mg tablet 20 mg PO DAILY [employer] #90 11/20/23 03/09/25 Rx tabs mirtazapine 15 mg tablet (Remeron) 15 mg PO QHS PRN sl eep 09/17/24 Unknown History naltrexone microspheres 380 mg 380 mg IM QMONTH 02/08/25 History intramuscular suspension,extended release (Vivitrol) spironolactone 25 mg tablet 75 mg PO QDAY 09/17/2407/03 History ibuprofen 600 mg tablet 600 mg PO TID PRN muscle/keyla nt 12/07/24 03/10/25 Rx Held on 02/08/25. pain #90 tabs Instructions: Order Changed zonisamide 100 mg capsule 100 mg .Route .COMPLEX EPILE PSY 12/07/24 03/09/25 Rx #90 caps ferrous sulfate 325 mg (65 mg 325 mg PO QDAY #90 tabs 01/03/25 03/09/25 Rx iron) tablet nadolol 20 mg tablet 20 mg PO QDAY #30 tabs 01/0303/09/25 Rx aripiprazole 2 mg tablet (Abilify) 2 mg PO QDAY #90 ta bs 01/11/25 03/09/25 Rx pantoprazole 40 mg tablet,delayed 40 mg PO DAILY 3 mon ths #90 tabs 02/08/25 03/09/25 Rx release calcium no.26 167 mg-magnesium 1 cap PO .QD 03/07/25 03/09/25 History no.15 83 mg-zinc 5 mg capsule (Lmunvwi-Fekepukmf-Uxfq Complex) multivitamin (Daily Value tablet) 1 tab PO DAILY 03/0703/09/25 History vitamin E 670 mg (1,000 unit) 670 mg PO QDAY 03/07/25 03/09/25 History capsule Allergy/AdvReac Type Severity Reaction Status Date / Time levetiracetam (From Keppra) Allergy Unknown seizures Verified 03/10/25 06:20 Penicillins Allergy Other Verified 03/10/25 06:20 bupropion HCl (From AdvReac Depression Verified 03/10/25 06:20 Wellbutrin) Family History Aunt Breast cancer Thyroid disorder Father Cancer Grandfather Cancer Mother Diabetes Hypertension Grandmother Myocardial infarction Heart disease Hypertension Cancer Hypercholesterolemia Other Cerebral aneurysm Surgical History History of tooth extraction, class I edentulism Tubal ligation status History of endometrial ablation History of tubal ligation S/P skin cancer resection H/O heart artery stent bladder sling History of heart surgery Social History Smoking Status: Light Smoker (<10/day) Tobacco: How many years used: 26 Electronic Cigarette Use: not used second hand exposure: Yes alcohol intake: current alcohol intake frequency: 3 or more drinks per day Alcohol type: beer, wine and other details: Recent heavy hard liquor intake, prior intermittent beer intake, 1- 3/time. substance use type: former substance user and marijuana what type of physical activity do you participate in: walking, bicycling and other details: LEG LIFTS frequency: daily sharon/anabaptism: None seatbelt use: always Review of Systems (Anesthesia) ROS Narrative System reviewed and no additional complaints, except as documented.
--- NOTE | 2025-03-10 07:00 | EGD_PTH ---
PATIENT: FELTON ARMENTA LOC: EN U#:[id number] AGE/SX: 54/F ROOM: RE03/10/[address]: Dr. Ezequiel Graves DO : 1970 BED: DIS: 03/10/2025 SPEC #: [id number] RECD: 03/10/25 07:45 STATUS: TONEY REQ #: [id number] EDIE: 03/10/25 07:[address]: Ezequiel Graves DEPT: SURGICAL PATHOLOGY RECD BY: Catalino Perry ENTERED: 03/10/25 09:56 SP TYPE: EGD BIOPSY GAURI DR: Dr. Edis Nichols MD Tissues: A - Esophagus, NOS Procedures: Surgery Specimen Level IV HEADER OPERATION: EGD biopsy PRE-OP DIAGNOSIS: Alcoholic hepatitis, left lower quadrant abdominal pain TISSUE SUBMITTED: A- Distal esophagus biopsy MICROSCOPIC DIAGNOSIS A. Distal esophagus, biopsy: * Columnar mucosa with reactive epithelial change. * Negative for goblet cell metaplasia. * Negative for dysplasia. MICROSCOPIC DESCRIPTION Slides are reviewed. GROSS DESCRIPTION A. Received in fixative is one container labeled with the patient's name and designated Distal esophagus biopsy. The specimen consists of two irregular fragments of osman tissue, each measuring 0.3 cm. The specimen is totally submitted in one cassette. [place] 03/10/2025 CPT:38865
--- NOTE | 2025-03-10 07:27 | OP.PROVAT_ITS ---
03/10/2025 Edis Nichols MD [address] [place] [address] [place] [address] Re : Upper GI endoscopy procedure for Froilan Pa Dear Dr. Nichols This procedure was performed on March. My impressions and recommendations are as follows: Impressions : - Small (< 5 mm) esophageal varices. - Z-line irregular, 39 cm from the incisors. Biopsied. - Gastroparesis. - Retained food in the duodenum. Recommendations : - Discharge patient to home. - Resume previous diet. - Continue present medications. - Await pathology results. My findings are described in the full procedure note, which is enclosed. If I can be of further assistance, please feel free to contact me at . Sincerely, Ezequiel Friend, 03/10/2025 7:26:50 AM This report has been signed electronically.
--- NOTE | 2025-03-10 07:27 | OP.EGD_ITS ---
Patient Name: Froilan Pa Procedure Date: 03/10/2025 7:08 AM Date of : 1970 Age: 54 Procedure: Upper GI endoscopy Indications: Epigastric abdominal pain, Functional Dyspepsia, Portal hypertension with suspected esophageal varices Providers: Ezequiel Graves DO Referring MD: Edis Nichols MD Medicines: Monitored Anesthesia Care Patient Profile: This is a 54 year old female. Refer to note in patient chart for documentation of history and physical. Patient has symptoms of chronic abdominal cramping, chronic abdominal distention and acute nausea. Complications: No immediate complications. Procedure: Pre-Anesthesia Assessment: - Prior to the procedure, a History and Physical was performed, and patient medications and allergies were reviewed. The patient is competent. The risks and benefits of the procedure and the sedation options and risks were discussed with the patient. All questions were answered and informed consent was obtained. Patient identification and proposed procedure were verified by the physician in the pre-procedure area. Mental Status Examination: alert and oriented. Airway Examination: normal oropharyngeal airway and neck mobility. Respiratory Examination: clear to auscultation. CV Examination: normal. Prophylactic Antibiotics: The patient does not require prophylactic antibiotics. Prior Anticoagulants: The patient has taken no anticoagulant or antiplatelet agents. ASA Grade Assessment: II - A patient with mild systemic disease. After reviewing the risks and benefits, the patient was deemed in satisfactory condition to undergo the procedure. The anesthesia plan was to use monitored anesthesia care (MAC). Immediately prior to administration of medications, the patient was re-assessed for adequacy to receive sedatives. The heart rate, respiratory rate, oxygen saturations, blood pressure, adequacy of pulmonary ventilation, and response to care were monitored throughout the procedure. The physical status of the patient was re-assessed after the procedure. After obtaining informed consent, the endoscope was passed under direct vision. Throughout the procedure, the patient's blood pressure, pulse, and oxygen saturations were monitored continuously. The gastroscope was introduced through the mouth, and advanced to the third part of the duodenum. Small bowel enteroscopy was deemed necessary. The upper GI endoscopy was accomplished without difficulty. The patient tolerated the procedure well. Scope In: 7:16:41 AM Scope Out: 7:19:38 AM Total Procedure Duration Time 0 hours 2 minutes 57 seconds Findings: Small (< 5 mm) varices were found in the distal esophagus. They were 4 mm in largest diameter. The Z-line was irregular and was found 39 cm from the incisors. Biopsies were taken with a cold forceps for histology. Verification of patient identification for the specimen was done. Estimated blood loss was minimal. Suspect gastroparesis due to absence of peristalsis, patient symptoms and retained gastric contents. Food (residue) was found in the entire duodenum. Impression: - Small (< 5 mm) esophageal varices. - Z-line irregular, 39 cm from the incisors. Biopsied. - Gastroparesis. - Retained food in the duodenum. Recommendation: - Discharge patient to home. - Resume previous diet. - Continue present medications. - Await pathology results. Procedure Code(s): --- Professional --- 03227, Small intestinal endoscopy, enteroscopy beyond second portion of duodenum, not including ileum; with biopsy, single or multiple CPT copyright 2021 [employer]. All rights reserved. The codes documented in this report are preliminary and upon office agent review may be revised to meet current compliance requirements. Ezequiel Graves DO 03/10/2025 7:26:50 AM This report has been signed electronically. Number of Addenda: 0 Note Initiated On: 03/10/2025 7:08 AM
--- NOTE | 2025-03-10 07:41 | PCM.POST.ANE ---
Anesthesia: Postop Eval I Current Vital Signs Temperature: 97.2 F Pulse Rate: 70 Blood Pressure: 75/47 Respiratory Rate: 16 Pulse Ox: 98 Oxygen Delivery Method: Room Air Assessment Airway patent: Yes Spontaneous unlabored respirations: Yes Mental status: Asleep nausea: No Vomiting: No Anesthesia Complication: No Fluid Hydration Crystalloid volume administer (ml): 400 Total IV fluid infused: 400 Progress Note Anesthesia document: Postop Eval 1 completed: Yes
--- NOTE | 2025-03-10 12:02 | PCM.POSTANE2 ---
Anesthesia Postop Eval I Sum Postop Eval Completion status Anesthesia document: Postop Eval 1 completed: Yes Anesthesia Postop Eval I Summary Anesthesia Postop Eval I Summary: Anesthesia Postop Eval I: Assessment Summary Airway patent Yes 03/10/25 07:42 [email or web address] Spontaneous unlabored Yes 03/10/25 07:42 [email or web address] respirations Mental status Asleep 03/10/25 07:42 [email or web address] nausea No 03/10/25 07:42 [email or web address] Vomiting No 03/10/25 07:42 [email or web address] Anesthesia Postop Eval I: Fluid Summary Crystalloid volume administer 400 03/10/25 07:42 [email or web address] (ml) Colloids volume administered ( ml) Blood Product volume administered (ml) Total IV fluid infused 400 03/10/25 07:42 [email or web address] Anesthesia Postop Eval I: Summary Notes Anesthesia Complication No 03/10/25 07:42 [email or web address] Anesthesia Complication Comment: Post-operative progress note Anesthesia: Postop Eval II Evaluation Mental status: Awake and Calm Pain Level: 0 nausea: No Vomiting: No Complications Anesthesia Complication: No
== END 2025-03-10 08:34 | disposition home or self-care (01) ==
LOC: EN 05:55 → AC 05:59
PROVIDERS: PCP Internal Medicine; Referring Provider Internal Medicine; Visit Provider Internal Medicine Gastroenterology
PROC: 0DJ08ZZ Inspection of Upper Intestinal Tract, Via Natural or Artificial Opening Endoscopic (ICD-10-PCS; CPT 43235; principal; 2025-03-10 06:55)
DX: R10.32 Left lower quadrant pain (principal); I85.00 Esophageal varices without bleeding; K76.6 Portal hypertension; K74.60 Unspecified cirrhosis of liver; F31.9 Bipolar disorder, unspecified; K70.10 Alcoholic hepatitis without ascites; K31.84 Gastroparesis; F17.210 Nicotine dependence, cigarettes, uncomplicated; I10 Essential (primary) hypertension; F41.9 Anxiety disorder, unspecified; Z79.899 Other long term (current) drug therapy; K21.9 Gastro-esophageal reflux disease without esophagitis; Z98.51 Tubal ligation status; Z95.5 Presence of coronary angioplasty implant and graft; R10.13 Epigastric pain; K22.89 Other specified disease of esophagus
CPT/HCPCS: 44361; 88305; J2405

== ENCOUNTER → 2025-03-25 | Outpatient (CLI) | payer MEDICARE, SELFPAY ==
--- NOTE | 2025-03-25 12:26 | NM_ITS ---
PROCEDURE: GASTRIC EMPTYING STUDY 03/25/2025 REASON FOR EXAM: POSS GASTROPARESIS COMPARISON: None TECHNIQUE: Procedure Code: NMGES Modality: NM Procedure: GASTRIC EMPTYING STUDY The patient ingested a standard meal of radiopharmaceutical, oatmeal and water. There was no vomiting postprandially. Anterior and posterior planar images of the upper abdomen were obtained for 1 minute immediately following the meal at 1h, 2h and 4h if more than 10% of the activity persisted within the stomach. Regions of interest were drawn, and a geometric mean was used to calculate a [id number]. RADIOPHARMACEUTICAL: Sulfur colloid DOSE 1mCi FINDINGS: Percent activity remaining in stomach: 1 hour 51 % (normal 37-90%) NM/Gastric Emptying Study IMPRESSION: Normal gastric emptying. Reading Location: [place] [id number]
== END | disposition home or self-care (01) ==
LOC: NM 12:22
PROVIDERS: PCP Internal Medicine; Referring Provider Internal Medicine Gastroenterology; Visit Provider Internal Medicine Gastroenterology
DX: R10.32 Left lower quadrant pain (principal)
CPT/HCPCS: 78264; A9541

== ENCOUNTER → 2025-04-26 | Outpatient (CLI) | payer MEDICARE, SELFPAY ==
--- NOTE | 2025-04-26 07:30 | BI_ITS ---
EXAM: SCRN MAMM (CAD)W/REGGIE BILAT DATE: 04/26/2025 CLINICAL HISTORY: F, Age 55 y/o , BREAST CANCER SCREENING Aunt with breast cancer. TECHNIQUE: Procedure Code: [id number] Modality: MG Procedure: SCRN MAMM (CAD)W/REGGIE BILAT COMPARISON: Prior exam(s) dated October 07, 2022.. FINDINGS: TISSUE DENSITY: The breasts are almost entirely fatty. Bilateral Breast Mammographic Findings: No significant masses, calcifications or other abnormalities are identified. Stable small benign-appearing bilateral axillary lymph nodes. No suspicious masses, areas of developing architectural distortion, or suspicious calcifications. There has been no significant interval change. BI/SCRN MAMM (CAD)W/REGGIE BILAT IMPRESSION: Stable bilateral screening mammogram. OVERALL FINAL ASSESSMENT BI-RADS 2: BENIGN RECOMMENDATION: Routine annual follow-up in 1 Year Additional Recommendation none A letter with findings and recommendations will be mailed to the patient. Reading Location: [facility]
--- OUTSIDE RECORDS SUMMARY | 2025-04-26 07:57 | XMS RPT_ITS | CCD ---
Author Organization [facility] Care Team Providers Care Last Inserter Name Role Phone YARIEL PUCKETT Unavailable Unavailable PHYSICIAN, NONE Unavailable Unavailable GABRIELA, GINA W Unavailable Unavailable GABRIELA, GINA W Unavailable Unavailable GABRIELA, GINA W Unavailable Unavailable PHYSICIAN, NONE Unavailable Unavailable SABCHRIS ADAM W Unavailable Unavailable GABRIELA, GINA W Unavailable Unavailable REFERRING, PHY WO ID Unavailable Unavailable EZRA CLANCY Unavailable Unavailable EZRA CLANCY Unavailable Unavailable Dr. Callie Nichols Primary Care Provider [phone] Dr. Callie Nichols Referring Provider [phone] Hesham COUNCIL MEMBER, COUNCIL MEMBER-C Moni Attending Provider [phone] Elysia COUNCIL MEMBER, COUNCIL MEMBER-C Rachel Attending Provider Dr. Callie Nichols Primary Care Provider [phone] Dr. Callie Nichols Attending Provider [phone] Dr. Callie Nichols Referring Provider [phone] Dr. Callie Nichols Primary Care Provider [phone] Dr. Callie Nichols Attending Provider [phone] Dr. Callie Nichols Referring Provider [phone] Dr. Lorne Henderson Attending Provider [phone] Dr. Callie Nichols Primary Care Provider [phone] Dr. Callie Nichols Referring Provider [phone] MD Nick Cisneros Attending Provider [phone] Dr. Lorne Henderson Attending Provider [phone] Lorne Henderson Referring Provider [phone] Dr. Callie Nichols Primary Care Provider [phone] Santiago, Dr. Pradhan Attending Provider [phone] Dr. Lorne Henderson Referring Provider [phone] Dr. Callie Nichols Attending Provider [phone] Dr. Callie Nichols Referring Provider [phone] Unavailable Primary Care Provider Unavailabl escobar Siegel MD, Sree Barr Primary Care Provider Callie Nichols Primary Care Provider Dr. Callie Nichols MD Primary Care Provider Dr. Oscar Fitzgerald DO Emergency Provider Moura DO, Dr. Lin Admit Provider Unavail able Moura DO, Dr. Lin Other Provider Unavail able Dr. Jana Holden DO Attending Provider Dr. Jana Holden DO Other Provider Magdalena PICKARD, Dr. Randhawa Attending Provider [phone] Dr. Callie Nichols MD Referring Provider [phone] Dr. Ryder Portillo DO Emergency Provider Marielle PICKARD, Dr. Raina Martin Admit Provider Marielle PICKARD, Dr. Raina Martin Other Provider Inderjit PICKARD, Dr. Toussaint Attending Provider Inderjit PICKARD, Dr. Toussaint Other Provider Hugo Sandhu Attending Provider Hugo Sandhu Referring Provider Dr. Callie Nichols MD Primary Care Provider Dr. Oscar Fitzgerald DO Emergency Provider Moura DO, Dr. Lin Admit Provider Unavail able Moura DO, Dr. Lin Other Provider Unavail able Navin BALTAZAR, Dr. Bates Attending Provider Navin BALTAZAR, Dr. Bates Other Provider Magdalena PICKARD, Dr. Randhawa Attending Provider Magdalena PICKARD, Dr. Randhawa Referring Provider Bandar BALTAZAR, Dr. Soler Emergency Provider Marielle PICKARD, Dr. Raina Martin Admit Provider Marielle PICKARD, Dr. Raina Martin Other Provider Inderjit PICKARD, Dr. Toussaint Attending Provider Inderjit PICKARD, Dr. Toussaint Other Provider Hugo Sandhu Attending Provider Hugo Sandhu Referring Provider Alejandra PICKARD, Dr. Perez Attending Provider Alejandra PICKARD, Dr. Perez Emergency Provider Santiago PICKARD, Dr. Pradhan Attending Provider [phone] Santiago PICKARD, Dr. Pradhan Referring Provider [phone] Mary TAVAREZ-CJacinta Attending Provider Mary TAVAREZ-CJacinta Referring Provider Navin BALTAZAR, Dr. Bates Other Provider OLEGHE, EFEWONGBE B Primary Care Unavailable OLEGHE, EFEWONGBE B Primary Care Unavailable MONI SALTER Attending Unavailable LAKIA BOYKIN Attending Unavailable SREE SIEGEL Primary Care Unavailable OLEGHE, EFEWONGBE Primary Care Unavailable ABHINAV GONZALEZ Attending Unavailable OLEGHE, EFEWONGBE Primary Care Unavailable NELI XIE Attending Unavailable OLEGHE, EFEWONGBE Primary Care Unavailable ZEWAIL, GARY Admitting Unavailable YURIY LOPEZ Attending Unavailable SREE SIEGEL Attending Unavailable SREE SIEGEL Primary Care Unavailable Magdalena PICKARD, Dr. Randhawa Primary Care Provider Magdalena PICKARD, Dr. Randhawa Referring Provider [phone] Alejandra PICKARD, Dr. Perez Attending Provider Alejandra PICKARD, Dr. Perez Emergency Provider Santiago PICKARD, Dr. Pradhan Attending Provider Santiago PICKARD, Dr. Pradhan Referring Provider Mary COUNCIL MEMBER-C, Jacinta Attending Provider Mary COUNCIL MEMBER-C, Jacinta Referring Provider [phone] Evelyn PICKARD, Dr. Eric Sawyer Attending Provider Karis PICKARD, Dr. Barnhart Attending Provider Magdalena PICKARD, Dr. Randhawa Attending Provider [phone] Magdalena PICKARD, Callie Alissa Primary Care [facility] ider OLEGHE, EFEWONGBE ALISSA Primary Care Unav ailable EZRA ZENDEJAS Attending Unavailable Oleghe, Efewongbe Primary Care Unavailable Lorne Henderson Referring Unavailable Lorne Henderson Attending Unavailable Oleghe, Efewongbe Primary Care Unavailable Lorne Henderson Attending Unavailable Deliadour Lorne Referring Unavailable Oleghe, Efewongbe Primary Care Unavailable Lorne Henderson Attending Unavailable Lorne Henderson Referring Unavailable Oleghe, Efewongbe Primary Care Unavailable Norbert Jansen Attending Unavailable Raina Palomares Consulting Unavailable Raina Palomares Admitting Unavailable Oleghe, Efewongbe Primary Care Unavailable Toddt Hugo Referring Unavailable ToddtHugo Attending Unavailable Oleghe, Efewongbe Primary Care Unavailable Oleghe, Efewongbe Attending Unavailable Oleghe, Efewongbe Referring Unavailable Jana Holden Attending Unavailable Oleghe, Efewongbe Primary Care Unavailable Riley Moura Consulting Unavailable Riley Moura Admitting Unavailable Obey Dyson Attending Unavailable Oleghe, Efewongbe Primary Care Unavailable Oleghe, Efewongbe Referring Unavailable Oleghe, Efewongbe Primary Care Unavailable Hugo Kat Attending Unavailable Oleghe, Efewongbe Primary Care Unavailable Riley Moura Attending Unavailable Riley Moura Consulting Unavailable Riley Moura Admitting Unavailable Jana Holden Attending Unavailable Jana Holden Consulting Unavailable Oleghe, Efewongbe Primary Care Unavailable Hugo Kat Referring Unavailable Hugo Kat Attending Unavailable Oleghe, Efewongbe Primary Care Unavailable Lorne Henderson Referring Unavailable Lorne Henderson Attending Unavailable Oleghe, Efewongbe Primary Care Unavailable Chris Roberts Attending Unavailable Oleghe, Efewongbe Primary Care Unavailable Hugo Kat Referring Unavailable Hugo Kat Attending Unavailable Oleghe, Efewongbe Primary Care Unavailable Lorne Henderson Referring Unavailable Lorne Henderson Attending Unavailable Oleghe, Efewongbe Primary Care Unavailable Norbert Jansen Attending Unavailable WhiteRaina L Consulting Unavailable Raina Palomares L Admitting Unavailable Norbert Jansen Consulting Unavailable Oleghe, Efewongbe Referring Unavailable Oleghe, Efewongbe Primary Care Unavailable Lorne Henderson Attending Unavailable Oleghe, Efewongbe Primary Care Unavailable Friend, Ezequiel Attending Unavailable Oleghe, Efewongbe Referring Unavailable Oleghe, Efewongbe Primary Care Unavailable Oleghe, Efewongbe Referring Unavailable Hugo Kat Attending Unavailable Oleghe, Efewongbe Primary Care Unavailable Friend, Ezequiel Referring Unavailable Friend, Ezequiel Attending Unavailable Oleghe, Efewongbe Referring Unavailable Oleghe, Efewongbe Primary Care Unavailable Lorne Henderson Attending Unavailable Oleghe, Efewongbe Referring Unavailable Oleghe, Efewongbe Primary Care Unavailable ToddtHugo Attending Unavailable Oleghe, Efewongbe Primary Care Unavailable Oleghe, Efewongbe Referring Unavailable Oleghe, Efewongbe Attending Unavailable Oleghe, Efewongbe Primary Care Unavailable Oleghe, Efewongbe Attending Unavailable Oleghe, Efewongbe Referring Unavailable Oleghe, Efewongbe Primary Care Unavailable Stephany Richardson Attending Unavailable Oleghe, Efewongbe Primary Care Unavailable Lorne Henderson Attending Unavailable Oleghe, Efewongbe Referring Unavailable Oleghe, Efewongbe Primary Care Unavailable Norbert Jansen Attending Unavailable Oleghe, Efewongbe Referring Unavailable Oleghe, Efewongbe Primary Care Unavailable Oleghe, Efewongbe Attending Unavailable Oleghe, Efewongbe Referring Unavailable Oleghe, Efewongbe Primary Care Unavailable Oleghe, Efewongbe Referring Unavailable Hugo Kat Attending Unavailable Oleghe, Efewongbe Primary Care Unavailable Oleghe, Efewongbe Referring Unavailable Curtis Katew Attending Unavailable Oleghe, Efewongbe Primary Care Unavailable Friend, Ezequiel Consulting Unavailable Friend, Ezequiel Attending Unavailable Oleghe, Efewongbe Referring Unavailable Raina Palomares Attending Unavailable Jacinta Hernandez Referring Unavailable Jacinta Hernandez Attending Unavailable Oleghe, Efewongbe Primary Care Unavailable Allergies Allergy Classification Reported Allergen(s) Allergy Type Date of Onset Reaction(s) Facility (13 sources) buPROPion; Translations: [BUPROPION HCL] Drug Allergy 2 Anxiety [facility] Comment on above: per patient a seizur e (20 sources) Penicillins; Translations: [PENICILLINS] Allergy to substance 9 Other, Unknown [facility] Comment on above: pt unsure (13 sources) buPROPion; Translations: [BUPROPION] Drug Allergy 9 Other [facility] (13 sources) Oxcarbazepine; Translations: [OXCARBAZEPINE] Allergy to substance 1 Rash [facility] (6 sources) levETIRAcetam; Translations: [LEVETIRACETAM] Drug Allergy 5 Seizure [facility] (2 sources) Levetiracetam Allergy to substance 5 [facility] (1 source) levETIRAcetam Drug Allergy 5 [facility] Repository Medications Current Medications Medication Drug Class(es) Dates Sig (Normalized) Sig (Original) ARIPiprazole 2 mg oral tablet (7 sources) Atypical Antipsychotic Start: 12-13-2024 take 1 tablet by mouth once daily Aripiprazole (Abilify) 2 mg tablet Active 2 mg PO daily December 13, 2024 4:35pm Start: 09-17-2024 End: 11-15-2024 take 1 tablet by mouth once daily Aripiprazole (Abilify) 2 mg tablet Discontinued 2 mg PO daily 90 0 November 12, 2024 1:15pm November 15, 2024 8:03am ferrous sulfate 325 mg oral tablet (1 source) Start: 01-03-2025 take 1 tablet by mouth once daily Ferrous Sulfate 325 mg (65 mg iron) tablet Active 325 mg PO daily 90 3 January 03, 2025 12:00am ibuprofen 600 mg oral tablet (1 source) Nonsteroidal Anti-inflammatory Drug Start: 12-07-2024 take 1 tablet by mouth three times daily as needed for pain Ibuprofen 600 mg tablet Active 600 mg PO THREE TIMES A DAY as needed for muscle/joint pain 90 7 December 07, 2024 12:00am magnesium oxide 400 mg oral tablet (1 source) Start: 01-20-2025 take 1 tablet by mouth once daily 1 tablet (400 mg of magnesium oxide), oral, Daily, First dose (after last modification) on Fri01/20/25 at 0215 mirtazapine 15 mg oral tablet (9 sources) Start: 09-17-2024 take 1 tablet by mouth at bedtime Mirtazapine (Remeron) 15 mg tablet Active 15 mg PO AT BEDTIME September 17, 2024 12:00am Multivitamin preparation (4 sources) Start: 03-07-2022 take 1 tablet by mouth once daily in the morning Multivitamin Active 1 TABLET PO EVERY MORNING March 06, 2022 11:00pm Start: 03-07-2022 take 1 tablet by jorden th once daily in the morning Multivitamin Active 1 TABLET PO EVERY MORNING March 07, 2022 12:00am nadolol 20 mg oral tablet (1 source) beta-Adrenergic Santiago Start: 01-03-2025 take 1 tablet by mouth once daily Nadolol 20 mg tablet Active 20 mg PO daily 30 3 January 03, 2025 12:00am naltrexone hydrochloride 50 mg oral tablet (15 sources) Opioid Antagonist Start: 10-02-2024 take 1 tablet by mouth once daily Naltrexone 50 mg tablet Active 50 mg PO DAILY October 02, 2024 12:00am Start: 09-17-2024 inject 380 mg by int ramuscular injection every month Naltrexone Microspheres (Vivitrol) 380 mg suspension,extended rel recon Active 380 mg IM EVERY MONTH September 17, 2024 12:00am Start: 09-13-2024 naltrexone ER (Vivitrol) injection Inject 4 mL (380 mg) into the buttocks every 28 (twenty-eight) days. Do not start before September 13, 2024. 09/13/2024 Active Start: 09-13-2024 naltrexone ER (Vivitrol) injection Inject 4 mL (380 mg) into the buttocks every 28 (twenty-eight) days. Do not start before September 13, 2024. 09/13/2024 Active Start: 09-13-2024 naltrexone ER (Vivitrol) injection Inject 4 mL (380 mg) into the buttocks every 28 (twenty-eight) days. Do not start before September 13, 2024. 09/13/2024 Active pantoprazole 40 mg delayed release oral tablet (5 sources) Proton Pump Inhibitor Start: 10-02-2024 End: 12-07-2024 take 1 tablet by mouth once daily as needed Pantoprazole 40 mg tablet,delayed release (DR/EC) Active 40 mg PO DAILY as needed December 07, 2024 8:11am 1000 ml sodium chloride 9 mg/ml injection (4 sources) Start: 01-19-2025 End: 01-20-2025 take 150 mL intravenously every hour 150 mL/hr, intravenous, Continuous, Starting on Fri01/19/25 at 2055, For 1 day Start: 12-21-2024 End: 12-21-2024 1,000 mL, IntraVENous, at 1, 000 mL/hr, Administer over 1 Hours, Once, On Fri12/21/24 at 1240, For 1 dose spironolactone 25 mg oral tablet (20 sources) Aldosterone Antagonist Start: 09-17-2024 take 3 tablets by mouth once daily Spironolactone 25 mg tablet Active 75 mg PO daily September 17, 2024 12:00am Start: 08-12-2024 End: 08-17-2024 take 75 mg by mouth once daily 75 mg, Oral, Daily, Fir st dose on Fri08/12/24 at 0900 Start: 07-30-2024 End: 09-17-2024 take 5 tablets by mouth once daily at mealtime Spironolactone 50 mg Tablet Discontinued 100 mg PO DAILY WITH MEALS 60 30 0 July 30, 2024 1:00am September 17, 2024 2:11pm Hold for serum potassium more than 5.0 Start: 02-10-2019 End: 07-30-2024 take 3 tablets by mouth once daily Spironolactone 25 mg tablet Discontinued 75 mg PO DAILY 90 3 March 14, 2024 10:09am July 30, 2024 2:03pm diuretic Hold if K more than 5.0. Advised BMP in 3 days Start: 02-10-2019 End: 03-14-2024 take 1 tablet by mouth once daily Spironolactone 25 mg tablet Discontinued 25 mg PO DAILY 90 July 16, 2022 5:55pm March 14, 2024 10:10am zonisamide 100 mg oral capsule (20 sources) Anti-epileptic Agent Start: 08-12-2024 End: 08-17-2024 zonisamide (Zonegran) capsule 100 mg Start: 07-01-2023 zonisamide (Zo negran) 100 MG capsule Take 100 mg by mouth. 1 in morning and 2 at night 07/01/2023 Active Start: 11-02-2020 End: 12-07-2024 take 1 capsule by mouth once daily in the morning, then take 2 capsules by mouth once daily in the evening Zonisamide 100 mg capsule Active 100 mg .ROUTE .COMPLEX 90 7 December 07, 2024 8:42am EPILEPSY Take 1 capsule PO every morning and 2 capsules every evening Start: 11-02-2020 End: 10-07-2024 take 1 capsule by mouth twice daily Zonisamide 100 mg capsule Discontinued 100 mg PO TWICE A DAY 60 0 November 06, 2021 12:40pm November 08, 2021 1:44pm EPILEPSY Completed/Discontinued Medications Medication Drug Class(es) Dates Sig (Normalized) Sig (Original) acetaminophen 325 mg oral tablet (4 sources) Start: 08-11-2024 End: 08-17-2024 take 1 tablet by mouth every six hours as needed for pain and pain and headache 650 mg, Oral, Every 6 hours PRN, mild pain (1-3), moderate pain (4-6), headaches, severe pain (7-10), Starting on Bambi 08/12/24 at 1001, Maximum dose of acetaminophen is 4000 mg from all sources in 24 hours. aluminum hydroxide 40 mg/ml / magnesium hydroxide 40 mg/ml / simethicone 4 mg/ml oral suspension (2 sources) Start: 08-12-2024 End: 08-17-2024 take 10 mL by mouth three times daily as needed 10 mL, Oral, 3 times daily PRN, indigestion, Starting on Fri08/12/24 at 1002 aspirin 81 mg chewable tablet (7 sources) Platelet Aggregation Inhibitor, Nonsteroidal Anti-inflammatory Drug Start: 09-20-2024 End: 09-20-2024 take 324 mg by mouth once 324 mg, Oral, Once, On Fri09/20/24 at 1130, For 1 dose Start: 03-14-2024 End: 04-30-2024 take 1 tablet by mouth at breakfast Aspirin 81 mg Tablet,Delayed Release (Dr/Ec) Discontinued 81 mg PO WITH BREAKFAST 30 30 March 14, 2024 12:00am April 30, 2024 1:46pm Start: 03-14-2024 End: 04-30-2024 azithromycin 250 mg oral tablet (5 sources) Macrolide Antimicrobial Start: 11-20-2023 End: 01-29-2024 take 2-5 tablets by mouth once daily Azithromycin 250 mg tablet Discontinued 0 PO .COMPLEX 6 0 November 20, 2023 12:00am January 29, 2024 8:25am take 500 mg today (day 1), then 250 mg for 4 days (days 2-5) PO benzonatate 100 mg oral capsule (5 sources) Non-narcotic Antitussive Start: 11-20-2023 End: 01-29-2024 take 2 capsules by mouth three times daily as needed for cough Benzonatate 100 mg capsule Discontinued 200 mg PO THREE TIMES A DAY as needed for cough 30 0 November 20, 2023 12:00am January 29, 2024 8:25am bumetanide 1 mg oral tablet (3 sources) Loop Diuretic Start: 10-15-2024 End: 12-07-2024 take 1 tablet by mouth once daily Bumetanide 1 mg tablet Discontinued 1 mg PO daily 14 October 15, 2024 12:00am December 07, 2024 8:10am cefdinir 300 mg oral capsule (4 sources) Cephalosporin Antibacterial Start: 12-21-2024 End: 12-21-2024 take 300 mg by mouth once 300 mg, Oral, Once, On Fri12/21/24 at 1435, For 1 dose, Suspected Indication (Select all that apply): Urinary Tract Infection Start: 12-21-2024 End: 12-31-2024 take 1 capsule by mouth twice daily cefdinir (Omnicef) 300 MG capsule Take 1 capsule (300 mg) by mouth 2 times daily for 10 days. 20 capsule 12/21/2024 12/31/2024 Active cephalexin 500 mg oral capsule (5 sources) Cephalosporin Antibacterial Start: 07-10-2024 End: 07-30-2024 take 1 capsule by mouth twice daily Cephalexin 500 mg capsule Discontinued 500 mg PO TWICE A DAY 4 0 July 10, 2024 1:00am July 30, 2024 2:02pm infection 2 ml dicyclomine hydrochloride 10 mg/ml injection (8 sources) Anticholinergic Start: 01-19-2025 End: 01-19-2025 inject 20 mg by intramuscular injection once 20 mg, intramuscular, Once, On Fri01/19/25 at 2055, For 1 dose Start: 01-19-2025 End: 01-29-2025 take 1 tablet by mouth four times daily before mealtime dicyclomine (Bentyl) 20 mg tablet Indications: Lower abdominal pain , Diarrhea, unspecified type Take 1 tablet (20 mg) by mouth 4 times a day before meals for 10 days. 40 tablet 01/19/2025 01/29/2025 Active Start: 12-21-2024 End: 12-31-2024 take 1 tablet by mouth twice daily dicyclomine (Bentyl ) 20 MG tablet Take 1 tablet (20 mg) by mouth 2 times daily for 10 days. 20 tablet 12/21/2024 12/31/2024 Active Start: 12-21-2024 End: 12-21-2024 inject 20 mg by intramuscular injection once 20 mg, IntraMUSCular, Once, On Fri12/21/24 at 1350, For 1 dose Start: 08-11-2024 End: 08-17-2024 docusate sodium 50 mg / sennosides, snf 8.6 mg oral tablet (2 sources) Start: 08-11-2024 End: 08-17-2024 take 2 tablets by mouth every twenty-four hours as needed for constipation 2 tablet, Oral, Daily PRN, constipation, Starting on Fri08/11/24 at 2145 escitalopram 20 mg oral tablet (20 sources) Serotonin Reuptake Inhibitor Start: 11-14-2020 End: 08-17-2024 take 1 tablet by mouth once daily Escitalopram Oxalate 20 mg tablet Discontinued 20 mg PO DAILY 90 1 April 17, 2023 2:44pm November 20, 2023 4:53pm Start: 02-10-2019 End: 11-14-2020 take 1 tablet by mouth once daily Escitalopram Oxalate 10 mg tablet Discontinued 10 mg PO DAILY 90 2 February 15, 2020 9:49am November 14, 2020 1:56pm famotidine (Pepcid) 20 mg in sodium chloride (PF) 0.9 % 10 mL injection (2 sources) Start: 08-11-2024 End: 08-11-2024 20 mg, IntraVENous, Administer over 2 Minutes, Once, On Fri08/11/24 at 1425, For 1 dose, IV Push over minimum of 2 minutes - Dilute with 10 mL NS flurbiprofen 100 mg oral tablet (20 sources) Nonsteroidal Anti-inflammatory Drug Start: 10-07-2024 End: 12-07-2024 take 1 tablet by mouth three times daily as needed for pain Flurbiprofen 100 mg tablet Discontinued 100 mg PO THREE TIMES A DAY as needed for pain 90 October 07, 2024 12:00am December 07, 2024 8:10am Start: 10-02-2022 End: 09-17-2024 take 1 tablet by mouth three times daily as needed for pain Flurbiprofen 100 mg tablet Discontinued 100 mg PO THREE TIMES A DAY as needed for pain 270 2 January 29, 2024 8:22am September 17, 2024 2:10pm folic acid 1 mg oral tablet (20 sources) Start: 10-02-2024 End: 12-07-2024 take 1 tablet by mouth once daily Folic Acid 1 mg tablet Discontinued 1 mg PO DAILY October 02, 2024 12:00am December 07, 2024 8:10am Start: 07-10-2024 End: 09-17-2024 take 1 tablet by mouth once daily Folic Acid 1 mg tablet Discontinued 1 mg PO DAILY 30 30 2 July 30, 2024 2:04pm September 17, 2024 2:11pm supplement Start: 03-14-2024 End: 04-30-2024 take 1 tablet by mouth once daily Folic Acid 1 mg Tablet Discontinued 1 mg PO DAILY@0800 30 30 March 14, 2024 12:00am April 30, 2024 1:46pm furosemide 40 mg oral tablet (4 sources) Loop Diuretic Start: 10-02-2024 End: 12-07-2024 take 1 tablet by mouth once daily Furosemide 40 mg tablet Discontinued 40 mg PO DAILY 7 October 02, 2024 12:00am December 07, 2024 8:10am gabapentin 300 mg oral capsule (2 sources) Anti-epileptic Agent Start: 08-11-2024 End: 08-17-2024 take 1 capsule by mouth every eight hours 300 mg, Oral, Every 8 hours, First dose on Fri08/11/24 at 2200, Hold for excessive sedation hydrOXYzine pamoate 50 mg oral capsule (2 sources) Antihistamine Start: 08-11-2024 End: 08-17-2024 take 1 capsule by mouth every six hours as needed for anxiety iohexol (OMNIPaque) 350 mg iodine/mL solution 72 mL (1 source) Start: 01-19-2025 End: 01-19-2025 72 mL, intravenous, Once in imaging, Starting on Fri01/19/25 at 2147, For 1 dose iopamidol (Isovue-370) 76 % injection 75 mL (2 sources) Start: 12-21-2024 End: 12-21-2024 take 75 mL intravenously once as needed 75 mL, IntraVENous, IMG once PRN, contrast, Starting on Fri12/21/24 at 1253, For 1 dose 1 ml ketorolac tromethamine 15 mg/ml cartridge (2 sources) Nonsteroidal Anti-inflammatory Drug, Cyclooxygenase Inhibitor Start: 12-21-2024 End: 12-21-2024 15 mg, IntraVENous, Once, On Fri12/21/24 at 1240, For 1 dose lactulose 667 mg/ml oral solution (8 sources) Osmotic Laxative Start: 03-28-2022 End: 10-02-2022 take 10 g by mouth once daily Lactulose 10 gram/15 mL (15 mL) solution Discontinued 10 g PO DAILY 600 March 28, 2022 12:00am October 02, 2022 11:52am lamoTRIgine 25 mg oral tablet (10 sources) Mood Stabilizer, Anti-epileptic Agent Start: 10-02-2020 End: 11-02-2020 take 1 tablet by mouth twice daily, then take 2 tablets by mouth twice daily Lamotrigine 25 mg tablet Discontinued 0 .ROUTE .COMPLEX 120 1 October 02, 2020 12:00am November 02, 2020 10:03pm Take 1 tab PO BID x 1 week, then take 2 tabs PO BID thereafter levETIRAcetam 1000 mg oral tablet (20 sources) Start: 02-10-2019 End: 05-15-2020 Levetiracetam 1,000 mg tablet Discontinued 500 mg PO TWICE A DAY January 27, 2020 8:51am February 15, 2020 9:50am Start: 02-10-2019 End: 01-27-2020 Levetiracetam 1,000 MG table t Discontinued 500 mg PO THREE TIMES A DAY February 10, 2019 12:00am January 27, 2020 8:51am Start: 02-10-2019 End: 05-15-2020 Start: 02-10-2019 End: 01-27-2020 take 500 mg by mouth three times daily Levetiracetam Discontinued 500 MG PO THREE TIMES A DAY February 09, 2019 11:00pm January 27, 2020 7:51am levETIRAcetam (Keppra) 1,110 mg in sodium chloride 0.9 % 100 mL IVPB (2 sources) Start: 08-11-2024 End: 08-11-2024 1,110 mg (rounded from 1,108.5 mg = 15 mg/kg 73.9 kg), IntraVENous, at 400 mL/hr, Administer over 15 Minutes, Once, On Fri08/11/24 at 1430, For 1 dose lisinopril 5 mg oral tablet (20 sources) Angiotensin Converting Enzyme Inhibitor Start: 08-12-2024 End: 08-17-2024 take 5 mg by mouth once daily 5 mg, Oral, Daily, First dose on Fri08/12/24 at 0900 Start: 02-10-2019 End: 01-03-2025 take 1 tablet by mouth once daily Lisinopril 5 mg tablet Discontinued 5 mg PO DAILY 30 December 07, 2024 12:05pm January 03, 2025 7:58am blood pressure loperamide hydrochloride 2 mg oral capsule (2 sources) Opioid Agonist Start: 08-11-2024 End: 08-17-2024 1 ml LORazepam 2 mg/ml injection (6 sources) Benzodiazepine Start: 08-12-2024 End: 08-17-2024 inject 1 mL by intramuscular injection once as needed 2 mg, IntraMUSCular, Once PRN, seizures, Starting on Fri08/12/24 at 1002, For 1 dose, Please notify fire operations forester attending if this has to be utilized for a seizure. For IV doses dilute dose with 1ml NS. Start: 08-11-2024 End: 08-11-2024 1 mg, IntraVENous, Once, On Fri08/11/24 at 2005, For 1 dose, For IV doses dilute dose with 1ml NS.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 above: Performed By: #### 5 7021-8 #### JAK MICHELLE ([id number]) [facility] ([facility]) [address] [place] [address] 53143 Immature granulocytes/100 WBC (Bld) 0.4 % Normal 0.0-0.9 [facility] Comment on above: Result Comment: Falguni ture Granulocyte Count (IG) includes promyelocytes, myelocytes and metamyelocytes but does not include bands. Percent differential counts (%) should be interpreted in the context of the absolute cell counts (cells/UL). Performed By: #### 5 7021-8 #### JAK MICHELLE ([id number]) [facility] ([facility]) [address] [place] [address] 37483 Lymphocytes (Bld) [#/Vol] 0.79 x10*3/uL Low 1.20-4.80 [facility] Comment on above: Performed By: #### 5 7021-8 #### JAK MICHELLE ([id number]) [facility] ([facility]) [address] [place] [address] 86639 Lymphocytes/100 WBC (Bld) 9.7 % Normal 13.0-44.0 [facility] Comment on above: Performed By: #### 5 7021-8 #### JAK MICHELLE ([id number]) [facility] ([facility]) [address] [place] [address] 45560 MCH (RBC) [Entitic mass] 29.2 pg Normal 26.0-34.0 [facility] Comment on above: Performed By: #### 5 7021-8 #### JAK MICHELLE ([id number]) [facility] ([facility]) [address] [place] [address] 79159 MCHC (RBC) [Mass/Vol] 32.3 g/dL Normal 32.0-36.0 [facility] Comment on above: Performed By: #### 5 7021-8 #### JAK MICHELLE ([id number]) [facility] ([facility]) [address] [place] [address] 33939 MCV (RBC) [Entitic vol] 90 fL Normal 80-100 [facility] Comment on above: Performed By: #### 5 7021-8 #### JAK MICHELLE ([id number]) [facility] ([facility]) [address] [place] [address] 80305 Monocytes (Bld) [#/Vol] 0.15 x10*3/uL Normal 0.10-1.00 [facility] Comment on above: Performed By: #### 5 7021-8 #### JAK MICHELLE ([id number]) [facility] ([facility]) [address] [place] [address] 40678 Monocytes/100 WBC (Bld) 1.8 % Normal 2.0-10.0 [facility] Comment on above: Performed By: #### 5 7021-8 #### JAK MICHELLE ([id number]) [facility] ([facility]) [address] [place] [address] 04586 Neutrophils (Bld) [#/Vol] 7.13 x10*3/uL Normal 1.20-7.70 [facility] Comment on above: Result Comment: Perc ent differential counts (%) should be interpreted in the context of the absolute cell counts (cells/uL). Performed By: #### 5 7021-8 #### JAK MICHELLE ([id number]) [facility] ([facility]) [address] [place] [address] 44501 Neutrophils/100 WBC (Bld) 87.6 % Normal 40.0-80.0 [facility] Comment on above: Performed By: #### 5 7021-8 #### JAK MICHELLE ([id number]) [facility] ([facility]) [address] [place] [address] 97694 Nucleated RBC/100 WBC (Bld) [Ratio] 0.0 /100 WBCs Normal 0.0-0.0 [facility] Comment on above: Performed By: #### 5 7021-8 #### JAK MICHELLE ([id number]) [facility] ([facility]) [address] [place] [address] 84739 Platelets (Bld) [#/Vol] 194 x10*3/uL Normal 150-450 [facility] Comment on above: Performed By: #### 5 7021-8 #### JAK MICHELLE ([id number]) [facility] ([facility]) [address] [place] [address] 79615 RBC (Bld) [#/Vol] 4.42 x10*6/uL Normal 4.00-5.20 [facility] Comment on above: Performed By: #### 5 7021-8 #### JAK MICHELLE ([id number]) [facility] ([facility]) [address] [place] [address] 44015 WBC (Bld) [#/Vol] 8.1 x10*3/uL Normal 4.4-11.3 [facility] Comment on above: Performed By: #### 5 7021-8 #### JAK MICHELLE ([id number]) [facility] ([facility]) [address] [place] [address] CT ABDOMEN PELVIS W IV CONTR [place] 01-19-2025 CT ABDOMEN PELVIS W IV CONTRAST Interpreted By: Maximo De La Cruz, STUDY: CT ABDOMEN PELVIS W IV CONTRAST; 01/19/2025 9:47 pm INDICATION: Signs/Symptoms:Abdominal pain. COMPARISON: None. ACCESSION NUMBER(S): [id number] ORDERING CLINICIAN: EZRA ZENDEJAS TECHNIQUE: CT of the abdomen and pelvis was performed. Standard contiguous axial images were obtained at 3 mm slice thickness through the abdomen and pelvis. Coronal and sagittal reconstructions at 3 mm slice thickness were performed. 72 ML of Omnipaque 350 was administered intravenously without immediate complication. FINDINGS: LOWER CHEST: The visualized lung base is unremarkable. The heart is normal in size without pericardial effusion. No pleural effusion is present. Visualized distal esophagus appears normal. ABDOMEN: LIVER: Nodular hepatic liver contour likely cirrhotic morphology. No hepatic lesions. BILE DUCTS: The intrahepatic and extrahepatic ducts are not dilated. GALLBLADDER: Punctate cholelithiasis and distended gallbladder. PANCREAS: Chronic calcifications in the pancreatic head. SPLEEN: The spleen is normal in size. ADRENAL GLANDS: Bilateral adrenal glands appear normal. KIDNEYS AND URETERS: The kidneys are normal in size and enhance symmetrically. No hydroureteronephrosis. Punctate nonobstructing right caliceal calculus. PELVIS: BLADDER: The urinary bladder appears normal without abnormal wall thickening. REPRODUCTIVE ORGANS: The uterus is present. BOWEL: The stomach is unremarkable. The small and large bowel are normal in caliber and demonstrate no wall thickening. The appendix appears normal. VESSELS: There is no aneurysmal dilatation of the abdominal aorta. The IVC appears normal. PERITONEUM/RETROPERITONE UM/LYMPH NODES: There is no free or loculated fluid collection, no free intraperitoneal air. The retroperitoneum appears normal. No adenopathy. BONES AND ABDOMINAL WALL: No suspicious osseous lesions are identified. The abdominal wall soft tissues appear normal. IMPRESSION: 1. No acute intra-abdominal findings. 2. Punctate cholelithiasis without evidence of cholecystitis. Punctate nonobstructing right caliceal calculus. 3. Nodular hepatic contour, can be seen with cirrhosis. MACRO: None Signed by: Maximo De La Cruz 01/19/2025 10:05 PM Dictation workstation: [id number] [facility] CT Abdomen and Pelvis W cont rast Cathi 01-19-2025 1. No acute intra-abdominal findings. 2. Punctate cholelithiasis without evidence of cholecystitis. Punctate nonobstructing right caliceal calculus. 3. Nodular hepatic contour, can be seen with cirrhosis. MACRO: None Signed by: Maximo De La Cruz 01/19/2025 10:05 PM Dictation workstation: [id number] Interpreted By: Maximo Monterroso, STUDY: CT ABDOMEN PELVIS W IV CONTRAST; 01/19/2025 9:47 pm INDICATION: Signs/Symptoms:Abdominal pain. COMPARISON: None. ACCESSION NUMBER(S): [id number] ORDERING CLINICIAN: EZRA ZENDEJAS TECHNIQUE: CT of the abdomen and pelvis was performed. Standard contiguous axial images were obtained at 3 mm slice thickness through the abdomen and pelvis. Coronal and sagittal reconstructions at 3 mm slice thickness were performed. 72 ML of Omnipaque 350 was administered intravenously without immediate complication. FINDINGS: LOWER CHEST: The visualized lung base is unremarkable. The heart is normal in size without pericardial effusion. No pleural effusion is present. Visualized distal esophagus appears normal. ABDOMEN: LIVER: Nodular hepatic liver contour likely cirrhotic morphology. No hepatic lesions. BILE DUCTS: The intrahepatic and extrahepatic ducts are not dilated. GALLBLADDER: Punctate cholelithiasis and distended gallbladder. PANCREAS: Chronic calcifications in the pancreatic head. SPLEEN: The spleen is normal in size. ADRENAL GLANDS: Bilateral adrenal glands appear normal. KIDNEYS AND URETERS: The kidneys are normal in size and enhance symmetrically. No hydroureteronephrosis. Punctate nonobstructing right caliceal calculus. PELVIS: BLADDER: The urinary bladder appears normal without abnormal wall thickening. REPRODUCTIVE ORGANS: The uterus is present. BOWEL: The stomach is unremarkable. The small and large bowel are normal in caliber and demonstrate no wall thickening. The appendix appears normal. VESSELS: There is no aneurysmal dilatation of the abdominal aorta. The IVC appears normal. PERITONEUM/RETROPERITONE UM/LYMPH NODES: There is no free or loculated fluid collection, no free intraperitoneal air. The retroperitoneum appears normal. No adenopathy. BONES AND ABDOMINAL WALL: No suspicious osseous lesions are identified. The abdominal wall soft tissues appear normal. [facility] Maximo De La Cruz , DO - 01/19/2025 Interpreted By: Maximo De La Cruz, STUDY: CT ABDOMEN PELVIS W IV CONTRAST; 01/19/2025 9:47 pm INDICATION: Signs/Symptoms:Abdominal pain. COMPARISON: None. ACCESSION NUMBER(S): [id number] ORDERING CLINICIAN: EZRA ZENDEJAS TECHNIQUE: CT of the abdomen and pelvis was performed. Standard contiguous axial images were obtained at 3 mm slice thickness through the abdomen and pelvis. Coronal and sagittal reconstructions at 3 mm slice thickness were performed. 72 ML of Omnipaque 350 was administered intravenously without immediate complication. FINDINGS: LOWER CHEST: The visualized lung base is unremarkable. The heart is normal in size without pericardial effusion. No pleural effusion is present. Visualized distal esophagus appears normal. ABDOMEN: LIVER: Nodular hepatic liver contour likely cirrhotic morphology. No hepatic lesions. BILE DUCTS: The intrahepatic and extrahepatic ducts are not dilated. GALLBLADDER: Punctate cholelithiasis and distended gallbladder. PANCREAS: Chronic calcifications in the pancreatic head. SPLEEN: The spleen is normal in size. ADRENAL GLANDS: Bilateral adrenal glands appear normal. KIDNEYS AND URETERS: The kidneys are normal in size and enhance symmetrically. No hydroureteronephrosis. Punctate nonobstructing right caliceal calculus. PELVIS: BLADDER: The urinary bladder appears normal without abnormal wall thickening. REPRODUCTIVE ORGANS: The uterus is present. BOWEL: The stomach is unremarkable. The small and large bowel are normal in caliber and demonstrate no wall thickening. The appendix appears normal. VESSELS: There is no aneurysmal dilatation of the abdominal aorta. The IVC appears normal. PERITONEUM/RETROPERITONE UM/LYMPH NODES: There is no free or loculated fluid collection, no free intraperitoneal air. The retroperitoneum appears normal. No adenopathy. BONES AND ABDOMINAL WALL: No suspicious osseous lesions are identified. The abdominal wall soft tissues appear normal. IMPRESSION: 1. No acute intra-abdominal findings. 2. Punctate cholelithiasis without evidence of cholecystitis. Punctate nonobstructing right caliceal calculus. 3. Nodular hepatic contour, can be seen with cirrhosis. MACRO: None Signed by: Maximo De La Cruz 01/19/2025 10:05 PM Dictation workstation: [id number] [facility] Work Phone: Radiology Study observation (narrative) [facility] Work Phone: CT Abdomen and Pelvis W cont rast IVOrdered By: Maximo De La Cruz on 01-19-2025 [facility] Work Phone: Comprehensive metabolic 2000 panelon 01-19-2025 Albumin BCP dye [Mass/Vol] 4.6 g/dL 3.4 - 5.0 g/dL [facility] ALP [Catalytic activity/Vol] 123 U/L High 33 - 110 U/L [facility] ALT With P-5'-P [Catalytic activity/Vol] 19 U/L 7 - 45 U/L [facility] Comment on above: Patients treated wit h Sulfasalazine may generate falsely decreased results for ALT. Anion gap [Moles/Vol] 15 mmol/L 10 - 2 0 mmol/L [facility] AST With P-5'-P [Catalytic activity/Vol] 17 U/L 9 - 39 U/L [facility] Bilirubin [Mass/Vol] 1.1 mg/dL 0.0 - 1 .2 mg/dL [facility] Calcium [Mass/Vol] 10.1 mg/dL 8.6 - 10. 3 mg/dL [facility] Chloride [Moles/Vol] 108 mmol/L High 98 - 10 7 mmol/L [facility] CO2 [Moles/Vol] 19 mmol/L Low 21 - 32 mmol/L [facility] Creatinine [Mass/Vol] 0.97 mg/dL 0.50 - 1.05 mg/dL [facility] GFR/1.73 sq M.predicted among non-blacks MDRD (S/P/Bld) [Vol rate/Area] 70 mL/min/{1.73_m2} - PINF [facility] Comment on above: Calculations of leticia mated GFR are performed using the 2020 CKD-EPI Study Refit equation without the race variable for the IDMS-Traceable creatinine methods. https://jasn.asnjournals.org/content/early/ASN.2020 494250 Glucose [Mass/Vol] 140 mg/dL High 74 - 99 mg/dL [facility] Interpretation and review of laboratory results Abnormal [facility] Potassium [Moles/Vol] 3.4 mmol/L Low 3.5 - 5.3 mmol/L [facility] Protein [Mass/Vol] 8.0 g/dL 6.4 - 8.2 g/dL [facility] Sodium [Moles/Vol] 139 mmol/L 136 - 145 mmol/L [facility] Urea nitrogen [Mass/Vol] 17 mg/dL 6 - 23 mg/dL [facility] Albumin BCP dye [Mass/Vol] 4.6 g/dL Normal 3.4-5.0 [facility] Comment on above: Performed By: #### 2 4323-8 #### JAK MICHELLE ([id number]) [facility] ([facility]) [address] [place] [address] 72094 ALP [Catalytic activity/Vol] 123 U/L High 33-110 [facility] Comment on above: Performed By: #### 2 4323-8 #### JAK MICHELLE ([id number]) [facility] ([facility]) [address] [place] [address] 04231 ALT With P-5'-P [Catalytic activity/Vol] 19 U/L Normal 7-45 [facility] Comment on above: Result Comment: Yennifer ents treated with Sulfasalazine may generate falsely decreased results for ALT. Performed By: #### 2 4323-8 #### JAK MICHELLE ([id number]) [facility] ([facility]) [address] [place] [address] Anion gap [Moles/Vol] 15 mmol/L Normal 10-20 [facility] Comment on above: Performed By: #### 2 432-8 #### JAK MICHELLE ([id number]) [facility] ([facility]) [address] [place] [address] AST With P-5'-P [Catalytic activity/Vol] 17 U/L Normal 9-39 [facility] Comment on above: Performed By: #### 2 432-8 #### JAK MICHELLE ([id number]) [facility] ([facility]) [address] [place] [address] Bilirubin [Mass/Vol] 1.1 mg/dL Normal 0.0-1.2 [facility] Comment on above: Performed By: #### 2 432-8 #### JAK MICHELLE ([id number]) [facility] ([facility]) [address] [place] [address] Calcium [Mass/Vol] 10.1 mg/dL Normal 8.6-10.3 [facility] Comment on above: Performed By: #### 2 4323-8 #### JAK MICHELLE ([id number]) [facility] ([facility]) [address] [place] [address] Chloride [Moles/Vol] 108 mmol/L High 98-107 [facility] Comment on above: Performed By: #### 2 432-8 #### JAK MICHELLE ([id number]) [facility] ([facility]) [address] [place] [address] CO2 [Moles/Vol] 19 mmol/L Low 21-32 [facility] Comment on above: Performed By: #### 2 4323-8 #### JAK MICHELLE ([id number]) [facility] ([facility]) [address] [place] [address] Creatinine [Mass/Vol] 0.97 mg/dL Normal 0.50-1.05 [facility] Comment on above: Performed By: #### 2 4323-8 #### JAK MICHELLE ([id number]) [facility] ([facility]) [address] [place] [address] 87478 Glomerular filtration rate 70 mL/min/1.73m*2 Normal >60 [facility] Comment on above: Result Comment: Calc ulations of estimated GFR are performed using the 2020 CKD-EPI Study Refit equation without the race variable for the IDMS-Traceable creatinine methods. https://jasn.asnjournals.org/content/early//ASN.2020 962600 Performed By: #### 2 4323-8 #### JAK MICHELLE ([id number]) [facility] ([facility]) [address] [place] [address] 87556 Glucose [Mass/Vol] 140 mg/dL High 74-99 [facility] Comment on above: Performed By: #### 2 4323-8 #### JAK MICHELLE ([id number]) [facility] ([facility]) [address] [place] [address] 23548 Potassium [Moles/Vol] 3.4 mmol/L Low 3.5-5.3 [facility] Comment on above: Performed By: #### 2 4323-8 #### JAK MICHELLE ([id number]) [facility] ([facility]) [address] [place] [address] 90746 Protein [Mass/Vol] 8.0 g/dL Normal 6.4-8.2 [facility] Comment on above: Performed By: #### 2 4323-8 #### JAK MICHELLE ([id number]) [facility] ([facility]) [address] [place] [address] 40181 Sodium [Moles/Vol] 139 mmol/L Normal 136-145 [facility] Comment on above: Performed By: #### 2 4323-8 #### JAK MICHELLE ([id number]) [facility] ([facility]) [address] [place] [address] 89429 Urea nitrogen [Mass/Vol] 17 mg/dL Normal 6-23 [facility] Comment on above: Performed By: #### 2 4323-8 #### JAK MICHELLE ([id number]) [facility] ([facility]) [address] [place] [address] 93816 Lactateon 01-19-2025 Lactate [Moles/Vol] 1.0 mmol/L 0.4 - 2. 0 mmol/L [facility] Lactate [Moles/Vol] 1.0 mmol/L Normal 0.4-2.0 [facility] Comment on above: Order Comment: Venip uncture immediately after or during the administration of Metamizole may lead to falsely low results. Testing should be performed immediately prior to Metamizole dosing. Performed By: #### 2 524-7 #### JAK MICHELLE ([id number]) [facility] ([facility]) [address] [place] [address] 48347 Lactate [Moles/Vol]on 2024 Interpretation and review of laboratory results Normal [facility] Venipuncture immedia tely after or during the administration of Metamizole may lead to falsely low results. Testing should be performed immediately prior to Metamizole dosing. [facility] Lipaseon 01-19-2025 Lipase [Catalytic activity/Vol] 73 U/L 9 - 82 U/L [facility] Lipase [Catalytic activity/V ol]on 01-19-2025 Interpretation and review of laboratory results Normal [facility] Venipuncture immedia tely after or during the administration of Metamizole may lead to falsely low results. Testing should be performed immediately prior to Metamizole dosing. [facility] Magnesiumon 01-19-2025 Magnesium [Mass/Vol] 1.33 mg/dL Low 1.60 - 2.40 mg/dL [facility] Magnesium [Mass/Vol] 1.33 mg/dL Low 1.60-2.40 [facility] Comment on above: Performed By: #### 1 9123-9 #### JAK MICHELLE ([id number]) [facility] ([facility]) [address] [place] [address] Magnesium [Mass/Vol]on 01-19 Interpretation and review of laboratory results Abnormal [facility] Triacylglycerol lipaseon Lipase [Catalytic activity/Vol] 73 U/L Normal - [facility] Comment on above: Order Comment: Venip uncture immediately after or during the administration of Metamizole may lead to falsely low results. Testing should be performed immediately prior to Metamizole dosing. Performed By: #### 3 040-3 #### JAK MICHELLE ([id number]) [facility] ([facility]) [address] [place] [address] Urinalysis complete W Reflex Culture panel (U)on 01-19-2025 Appearance (U) Clear Clear [facility] Bilirubin (U) [Mass/Vol] Negative NEGATIVE mg/dL [facility] Color (U) Light-Yellow Light-Yellow , Yellow, Dark-Yellow [facility] Epithelial cells.squamous Auto (Urine sed) [#/Area] 1-9 (SPARSE) Reference range not established. /HPF [facility] Glucose Auto test strip (U) [Mass/Vol] Normal Normal mg/dL [facility] Interpretation and review of laboratory results Abnormal [facility] Ketones (U) [Mass/Vol] TRACE Abnormal NEGAT MANISHA mg/dL [facility] Leukocyte esterase Auto test strip Ql (U) Negative NEGATIVE [facility] Mucus Auto (Urine sed) [#/Area] FEW Reference range not established. /LPF [facility] Nitrite Auto test strip Ql (U) Negative NEGATIVE [facility] pH (U) 6.5 [pH] 5.0, 5.5, 6.0, 6.5, 7.0, 7.5, 8.0 [facility] Protein (U) [Mass/Vol] 10 (TRACE) NEGAT MANISHA, 10 (TRACE), 20 (TRACE) mg/dL [facility] RBC (U) [#/Vol] Negative NEGATIVE mg/dL [facility] RBC Auto (Urine sed) [#/Area] 3-5 NONE, 1-2, 3-5 /HPF [facility] Specific gravity (U) [Rel density] >1.050 Abnormal 1.005 - 1.035 [facility] Comment on above: Specific gravity of >1.050 may be falsely elevated due to interfering substances (e.g. radiopaque contrast dye, mannitol). If clinically necessary, an alternate test method is available by calling the laboratory within 24 hours of specimen collection. Urobilinogen (U) [Mass/Vol] Normal Normal mg/dL [facility] WBC Auto (Urine sed) [#/Area] 1-5 1-5, NONE /HPF [facility] Appearance (U) Clear Normal Clear [facility] Comment on above: Performed By: #### 5 8077-9 #### JAK MICHELLE ([id number]) [facility] ([facility]) [address] [place] [address] Bilirubin (U) [Mass/Vol] Negative Normal NEGATIVE [facility] Comment on above: Performed By: #### 5 8077-9 #### JAK MICHELLE ([id number]) [facility] ([facility]) [address] [place] [address] 29656 Color (U) Light-Yellow Normal Light-Yellow , Yellow, Dark-Yellow [facility] Comment on above: Performed By: #### 5 8077-9 #### JAK MICHELLE ([id number]) [facility] ([facility]) [address] [place] [address] Epithelial cells.squamous Auto (Urine sed) [#/Area] 1-9 (SPARSE) Normal Reference range not established. [facility] Comment on above: Performed By: #### 5 8077-9 #### JAK MICHELLE ([id number]) [facility] ([facility]) [address] [place] [address]17 Glucose Auto test strip (U) [Mass/Vol] Normal Normal Normal [facility] Comment on above: Performed By: #### 5 8077-9 #### JAK MICHELLE ([id number]) [facility] ([facility]) [address] [place] [address] 25178 Ketones (U) [Mass/Vol] TRACE Abnormal NEGATIVE [facility] Comment on above: Performed By: #### 5 8077-9 #### JAK MICHELLE ([id number]) [facility] ([facility]) [address] [place], [place] [id number] Leukocyte esterase Auto test strip Ql (U) Negative Normal NEGATIVE [facility] Comment on above: Performed By: #### 5 8077-9 #### JAK MICHELLE ([id number]) [facility] ([facility]) [address] [place] [address] Mucus Auto (Urine sed) [#/Area] FEW Normal Reference range not established. [facility] Comment on above: Performed By: #### 5 8077-9 #### JAK MICHELLE ([id number]) [facility] ([facility]) [address] [place] [address] Nitrite Auto test strip Ql (U) Negative Normal NEGATIVE [facility] Comment on above: Performed By: #### 5 8077-9 #### JAK MICHELLE ([id number]) [facility] ([facility]) [address] [place] [address] 49294 pH (U) 6.5 [pH] Normal 5.0, 5.5, 6.0, 6.5, 7.0, 7.5, 8.0 [facility] Comment on above: Performed By: #### 5 8077-9 #### JAK MICHELLE ([id number]) [facility] ([facility]) [address] [place] [address] 53831 Protein (U) [Mass/Vol] 10 (TRACE) Normal NEGAT MANISHA, 10 (TRACE), 20 (TRACE) [facility] Comment on above: Performed By: #### 5 8077-9 #### JAK MICHELLE ([id number]) [facility] ([facility]) [address] [place] [address] 76971 RBC (U) [#/Vol] Negative Normal NEGATIVE [facility] Comment on above: Performed By: #### 5 8077-9 #### JAK MICHELLE ([id number]) [facility] ([facility]) [address] [place] [address] 59695 RBC Auto (Urine sed) [#/Area] 3-5 Normal NONE, 1-2, 3-5 [facility] Comment on above: Performed By: #### 5 8077-9 #### JAK MICHELLE ([id number]) [facility] ([facility]) [address] [place] [address] 08045 Specific gravity (U) [Rel density] >1.050 Normal 1.005-1.035 [facility] Comment on above: Result Comment: Spec ific gravity of >1.050 may be falsely elevated due to interfering substances (e.g. radiopaque contrast dye, mannitol). If clinically necessary, an alternate test method is available by calling the laboratory within 24 hours of specimen collection. Performed By: #### 5 8077-9 #### JAK MICHELLE ([id number]) [facility] ([facility]) [address] [place] [address] 12020 Urobilinogen (U) [Mass/Vol] Normal Normal Normal [facility] Comment on above: Performed By: #### 5 8077-9 #### JAK MICHELLE ([id number]) [facility] ([facility]) [address] [place] [address] 53140 WBC Auto (Urine sed) [#/Area] 1-5 Normal 1-5, NONE [facility] Comment on above: Performed By: #### 5 8077-9 #### JAK MICHELLE ([id number]) [facility] ([facility]) [address] [place] [address] 63468 [id number] 01-06-2025 [facility] Misc. COMMENT Normal . [facility] Comment on above: Order Comment: SERUM [id number] Result Comment: Test Ordered: [id number] Zonisamide(Zonegran), SerumZonisamide 23.8 ug/mL BN Reference Range: 10.0-40.0 Detection Limit = 2.0Performed at: - [facility] [id number] [place], [place] [id number] Director: Apurva Molina MD, Phone: [phone] at: [facility] [place], [place] [id number] Director: Aj Poe PhD, Phone: [phone] Performed By: #### L 3410.9992 ####[facility] [address] [place], [address] Absolute lymphocyte countOrd ered By: Callie Nichols on 01-03-2025 Lymphocytes Auto (Unsp spec) [#/Vol] 1.69 10*3/uL 0.83-4.51 [facility] Absolute neutrophil countOrd ered By: Callie Nichols on 01-03-2025 Neutrophils (Bld) [#/Vol] 3.7 10*3/uL 2.0-7.7 [facility] Anion gap in Serum or Plasma Ordered By: Callie Nichols on 01-03-2025 Anion gap [Moles/Vol] 12 mmol/L 5-15 [facility] Automated lymphocyte count a s percentage of total leukocytesOrdered By: Callie Nichols on 01-03-2025 Lymphocytes/100 WBC Auto (Unsp spec) 27.0 % 19-41 [facility] BUN/creatinine ratioOrdered By: Callie Nichols on 01-03-2025 Urea nitrogen/Creatinine [Mass ratio] 10.1 mg/mg 10-20 [facility] Basophil percentageOrdered B y: Callie Nichols on 01-03-2025 Basophils/100 WBC (Bld) 0.6 % 0-1 [facility] Bilirubin, totalOrdered By: Callie Nichols on 01-03-2025 Bilirubin [Mass/Vol] 0.39 mg/dL 0.00-1.30 [facility] CBC W/Diff, Automatedon 12-08 Absolute Lymph 1.69 X10 3/uL Normal 0.83-4.51 [facility] Comment on above: Performed By: #### L 500.4050, L100.0100 ####[facility] [address] [place], [address] Absolute Neut 3.7 X10 3/uL Normal 2.0-7.7 [facility] Comment on above: Performed By: #### L 500.4050, L100.0100 ####[facility] [address] [place], [address] Basophils/100 WBC (Bld) 0.6 % Normal 0-1 [facility] Comment on above: Performed By: #### L 500.4050, L100.0100 ####[facility] [address] [place], [address] Eosinophils/100 WBC (Bld) 4.0 % Normal 0-5 [facility] Comment on above: Performed By: #### L 500.4050, L100.0100 ####[facility] [address] [place], [address] Erythrocyte distribution width (RBC) [Ratio] 14.6 % Normal 11.6-14.6 [facility] Comment on above: Performed By: #### L 500.4050, L100.0100 ####[facility] [address] [place], [address] Hematocrit (Bld) [Volume fraction] 34.1 % Low 37-47 [facility] Comment on above: Performed By: #### L 500.4050, L100.0100 ####[facility] [address] [place], [address] Hemoglobin (Bld) [Mass/Vol] 10.7 g/dL Low 12.0-15.0 [facility] Comment on above: Performed By: #### L 500.4050, L100.0100 ####[facility] [address] [place], [address] IG% 0.300 Normal 0.0-0.9 [facility] Comment on above: Result Comment: IG% - Immature Granulocytes (promyelocytes, myelocytes andmetamyelocytes) > 1% indicates that a LEFT SHIFT is Present. Performed By: #### L 500.4050, L100.0100 ####[facility] [address] [place], [address] Lymphocytes/100 WBC (Bld) 27.0 % Normal 19-41 [facility] Comment on above: Performed By: #### L 500.4050, L100.0100 ####[facility] [address] [place], [address] MCH (RBC) [Entitic mass] 28.9 pg Normal 27.0-32.0 [facility] Comment on above: Performed By: #### L 500.4050, L100.0100 ####[facility] [address] [place], [address] MCHC (RBC) [Mass/Vol] 31.4 g/dL Low 32-36 [facility] Comment on above: Performed By: #### L 500.4050, L100.0100 ####[facility] [address] [place], [address] MCV (RBC) [Entitic vol] 92.2 fL Normal 81-99 [facility] Comment on above: Performed By: #### L 500.4050, L100.0100 ####[facility] [address] [place], [address] Monocytes/100 WBC (Bld) 8.3 % Normal 0-10 [facility] Comment on above: Performed By: #### L 500.4050, L100.0100 ####[facility] [address] [place], [address] Neutrophils/100 WBC (Bld) 59.8 % Normal 47-70 [facility] Comment on above: Performed By: #### L 500.4050, L100.0100 ####[facility] [address] [place], [address] Nucleated RBC (Bld) [#/Vol] 0 10*3/uL Normal 0-5 [facility] Comment on above: Performed By: #### L 500.4050, L100.0100 ####[facility] [address] [place], [address] Platelet mean volume (Bld) [Entitic vol] 10.4 fL Normal 6.2-12.0 [facility] Comment on above: Performed By: #### L 500.4050, L100.0100 ####[facility] [address] [place], [address] Platelets (Bld) [#/Vol] 156 10*3/uL Normal 150-450 [facility] Comment on above: Performed By: #### L 500.4050, L100.0100 ####[facility] [address] [place], [address] RBC (Bld) [#/Vol] 3.70 10*6/uL Low 4.2-5.4 [facility] Comment on above: Performed By: #### L 500.4050, L100.0100 ####[facility] [address] [place], [address] RDW SD 49.2 fl High 35.1-43.9 [facility] Comment on above: Performed By: #### L 500.4050, L100.0100 ####[facility] [address] [place], [address] WBC (Bld) [#/Vol] 6.3 10*3/uL Normal 4.4-11.0 [facility] Comment on above: Performed By: #### L 500.4050, L100.0100 ####[facility] [address] [place], [address] Carbon dioxide, total [Moles /volume] in Central venous bloodOrdered By: Callie Nichols on 01-03-2025 CO2 [Moles/Vol] 19.4 mmol/L Low 21.0-32.0 [facility] Chloride assayOrdered By: Eliana Nichols on 01-03-2025 Chloride [Moles/Vol] 108 mmol/L 98-108 [facility] Comprehensive Metabolic Prof ilon 01-03-2025 Albumin [Mass/Vol] 4.2 g/dL Normal 3.5-5.0 [facility] Comment on above: Performed By: #### L 500.4050, L100.0100 ####[facility] [address] [place], [address] Albumin/Globulin [Mass ratio] 1.3 {ratio} Normal 0.9-2.4 [facility] Comment on above: Performed By: #### L 500.4050, L100.0100 ####[facility] [address] [place], [address] ALK PHOS 121 U/L High 35-104 [facility] Comment on above: Performed By: #### L 500.4050, L100.0100 ####[facility] [address] [place], [address] ALT [Catalytic activity/Vol] 20 U/L Normal <=34 [facility] Comment on above: Performed By: #### L 500.4050, L100.0100 ####[facility] [address] [place], [address] AST [Catalytic activity/Vol] 20 U/L Normal <=31 [facility] Comment on above: Performed By: #### L 500.4050, L100.0100 ####[facility] [address] [place], [address] Bilirubin [Mass/Vol] 0.39 mg/dL Normal 0.00-1.30 [facility] Comment on above: Performed By: #### L 500.4050, L100.0100 ####[facility] [address] [place], [address] BUN/CRE 10.1 RATIO Normal 10-20 [facility] Comment on above: Performed By: #### L 500.4050, L100.0100 ####[facility] [address] [place], [address] Calcium [Mass/Vol] 9.6 mg/dL Normal 7.6-11.0 [facility] Comment on above: Performed By: #### L 500.4050, L100.0100 ####[facility] [address] [place], [address] Chloride [Moles/Vol] 108 mmol/L Normal 98-108 [facility] Comment on above: Performed By: #### L 500.4050, L100.0100 ####[facility] [address] [place], [address] CO2 [Moles/Vol] 19.4 mmol/L Low 21.0-32.0 [facility] Comment on above: Performed By: #### L 500.4050, L100.0100 ####[facility] [address] [place], [address] Creatinine [Mass/Vol] 0.96 mg/dL Normal 0.70-1.20 [facility] Comment on above: Performed By: #### L 500.4050, L100.0100 ####[facility] [address] [place], [address] GAP 12 Normal 5-15 [facility] Comment on above: Performed By: #### L 500.4050, L100.0100 ####[facility] [address] [place], [address] GFR/1.73 sq M.predicted among non-blacks MDRD (S/P/Bld) [Vol rate/Area] 71 mL/min/{1.73_m2} Normal >60 [facility] Comment on above: Result Comment: mL/m in/1.73m2 CKD-EPI Creatinine Equation (2020) Performed By: #### L 500.4050, L100.0100 ####[facility] [address] [place], [address] Globulin (S) [Mass/Vol] 3.2 g/dL Normal 2.2-4.2 [facility] Comment on above: Performed By: #### L 500.4050, L100.0100 ####[facility] [address] [place], [address] Glucose [Mass/Vol] 110 mg/dL High 70-99 [facility] Comment on above: Performed By: #### L 500.4050, L100.0100 ####[facility] [address] [place], [address] Potassium [Moles/Vol] 3.5 mmol/L Normal 3.3-5.1 [facility] Comment on above: Performed By: #### L 500.4050, L100.0100 ####[facility] [address] [place], [address] Sodium [Moles/Vol] 140 mmol/L Normal 133-145 [facility] Comment on above: Performed By: #### L 500.4050, L100.0100 ####[facility] [address] [place], [address] T PROT 7.4 g/dL Normal 5.9-8.4 [facility] Comment on above: Performed By: #### L 500.4050, L100.0100 ####[facility] [address] [place], [place], [address] Urea nitrogen [Mass/Vol] 10 mg/dL Normal 4-19 [facility] Comment on above: Performed By: #### L 500.4050, L100.0100 ####[facility] [address] [place], [address] Eosinophil percentageOrdered By: Callie Nichols on 01-03-2025 Eosinophils/100 WBC (Bld) 4.0 % 0-5 [facility] Erythrocyte distribution wid th ratioOrdered By: [facility] on 01-03-2025 Erythrocyte distribution width (RBC) [Ratio] 14.6 % 11.6-14.6 [facility] Erythrocyte distribution wid th standard deviationOrdered By: Baileyoaklandjose Nichols on 01-03-2025 Erythrocyte distribution width (RBC) [Ratio] 49.2 fl High 35.1-43.9 [facility] Glomerular filtration rate ( GFR) estimation/1.73 sq m using serum, plasma, or whole bOrdered By: teresa Nichols on 01-03-2025 GFR/1.73 sq M.predicted among non-blacks MDRD (S/P/Bld) [Vol rate/Area] 71 mL/min/{1.73_m2} >60 [facility] Comment on above: mL/min/1.73m2 CKD-EP I Creatinine Equation (2020) Hematocrit Auto (Bld) [Volum e fraction]Ordered By: Callie Nichols on 01-03-2025 Hematocrit (Bld) [Volume fraction] 34.1 % Low 37-47 [facility] Hemoglobin measurementOrdere d By: Callie Nichols on 01-03-2025 Hemoglobin (Bld) [Mass/Vol] 10.7 g/dL Low 12.0-15.0 [facility] Immature granulocytes/100 WB C Auto (Bld)Ordered By: Callie Nichols on 01-03-2025 Immature granulocytes/100 WBC (Bld) 0.300 % 0.0-0.9 [facility] Comment on above: IG% - Immature Granu locytes (promyelocytes, myelocytes and metamyelocytes) > 1% indicates that a LEFT SHIFT is Present. Internal Medicine Office Vis iton 01-03-2025 Internal Medicine Office Visit Normal [facility] Laboratory - Chemistry and C hemistry - challengeOrdered By: Callie Nichols on 01-03-2025 AST [Catalytic activity/Vol] 20 U/L <32 [facility] MCV (mean corpuscular volume ) determinationOrdered By: Callie Nichols on 01-03-2025 MCV (RBC) [Entitic vol] 92.2 fL 81-99 [facility] Mean corpuscular hemoglobin (MCH) determinationOrdered By: Callie Nichols on 01-03-2025 MCH (RBC) [Entitic mass] 28.9 pg 27.0-32.0 [facility] Mean corpuscular hemoglobin concentration (MCHC) determinationOrdered By: Callie Nichols on 01-03-2025 MCHC (RBC) [Mass/Vol] 31.4 g/dL Low 32-36 [facility] Mean platelet volume determi nationOrdered By: Callie Nichols on 01-03-2025 Platelet mean volume (Bld) [Entitic vol] 10.4 fL 6.2-12.0 [facility] Monocyte percentageOrdered B y: Callie Nichols on 01-03-2025 Monocytes/100 WBC (Bld) 8.3 % 0-10 [facility] Neutrophil percentageOrdered By: Callie Nichols on 01-03-2025 Neutrophils/100 WBC (Bld) 59.8 % 47-70 [facility] Nucleated red blood cell per centageOrdered By: Callie Nichols on 01-03-2025 Nucleated RBC/100 WBC (Bld) [Ratio] 0 % 0-5 [facility] Platelet countOrdered By: Eliana Nichols on 01-03-2025 Platelets (Bld) [#/Vol] 156 10*3/uL 150-450 [facility] Potassium measurement (mass/ volume)Ordered By: Callie Nichols on 01-03-2025 Potassium (Unsp spec) [Mass/Vol] 3.5 mmol/L 3.3-5.1 [facility] RBC Auto (Bld) [#/Vol]Ordere d By: Callie Nichols on 01-03-2025 RBC (Bld) [#/Vol] 3.70 10*6/uL Low 4.2-5.4 [facility] Serum creatinine measurement (mass/volume)Ordered By: Callie Nichols on 01-03-2025 Creatinine [Mass/Vol] 0.96 mg/dL 0.70-1.20 [facility] Serum globulin measurementOr dered By: Callie Nichols on 01-03-2025 Globulin (S) [Mass/Vol] 3.2 g/dL 2.2-4.2 [facility] Serum glucose measurement (m ass/volume)Ordered By: Callie Nichols on 01-03-2025 Glucose [Mass/Vol] 110 mg/dL High 70-99 [facility] Serum or plasma alanine boyce otransferase (ALT) measurementOrdered By: Callie Nichols on 01-03-2025 ALT [Catalytic activity/Vol] 20 U/L <35 [facility] Serum or plasma albumin ferdinand urement (mass/volume)Ordered By: Callie Nichols on 01-03-2025 Albumin [Mass/Vol] 4.2 g/dL 3.5-5.0 [facility] Serum or plasma albumin/glob ulin mass ratioOrdered By: Callie Nichols 01-03-2025 Albumin/Globulin [Mass ratio] 1.3 {ratio} 0.9-2.4 [facility] Serum or plasma alkaline garry sphatase measurementOrdered By: Callie Nichols on 01-03-2025 ALP [Catalytic activity/Vol] 121 U/L High 35-104 [facility] Serum or plasma calcium ferdinand urement (mass/volume)Ordered By: Callie Nichols on 01-03-2025 Calcium [Mass/Vol] 9.6 mg/dL 7.6-11.0 [facility] Serum or plasma urea nitroge n measurement (mass/volume)Ordered By: Callie Nichols on 01-03-2025 Urea nitrogen [Mass/Vol] 10 mg/dL 4-19 [facility] Sodium levelOrdered By: Bailey Nichols on 01-03-2025 Sodium [Moles/Vol] 140 mmol/L 133-145 [facility] Total proteinOrdered By: Noel Nichols on 01-03-2025 Protein [Mass/Vol] 7.4 g/dL 5.9-8.4 [facility] White blood cell (WBC) count Ordered By: Callie Nichols on 01-03-2025 WBC (Bld) [#/Vol] 6.3 10*3/uL 4.4-11.0 [facility] CBC W Auto Differential pane l (Bld)on 12-21-2024 Basophils (Bld) [#/Vol] 0 10*3/uL 0.0 - 0.2 10*3/uL [facility] Basophils/100 WBC (Bld) 0.3 % 0.0 - 2.0 % [facility] Eosinophils (Bld) [#/Vol] 0 10*3/uL 0.0 - 0.5 10*3/uL [facility] Eosinophils/100 WBC (Bld) 0.3 % 0.0 - 6.0 % [facility] Erythrocyte distribution width (RBC) [Ratio] 14.3 % 11.5 - 15.0 % [facility] Hematocrit (Bld) [Volume fraction] 35.2 % 35.0 - 47.0 % [facility] Hemoglobin (Bld) [Mass/Vol] 11.9 g/dL 11.7 - 16.0 g/dL [facility] Immature granulocytes (Bld) [#/Vol] 0.1 10*3/uL High NINF - 0.1 10*3/uL [facility] Immature granulocytes/100 WBC (Bld) 0.8 % 0.0 - 2.0 % [facility] Interpretation and review of laboratory results Abnormal [facility] Lymphocytes (Bld) [#/Vol] 1.8 10*3/uL 1.0 - 4.3 10*3/uL [facility] Lymphocytes/100 WBC (Bld) 17.3 % 15.0 - 45.0 % [facility] MCH (RBC) [Entitic mass] 29.3 pg 26.0 - 34.0 pg [facility] MCHC (RBC) [Mass/Vol] 33.8 % 30.5 - 36.0 % [facility] MCV (RBC) [Entitic vol] 86.7 fL 77.0 - 99.0 fL [facility] Monocytes (Bld) [#/Vol] 0.9 10*3/uL 0.0 - 0.9 10*3/uL [facility] Monocytes/100 WBC (Bld) 8.6 % 5.0 - 13.0 % [facility] Neutrophils (Bld) [#/Vol] 7.4 10*3/uL 1.8 - 7.5 10*3/uL [facility] Neutrophils/100 WBC (Bld) 72.7 % 38.0 - 82.0 % [facility] Nucleated RBC/100 WBC (Bld) [Ratio] 0 % [facility] Platelet mean volume (Bld) [Entitic vol] 9.6 fL 9.0 - 12.7 fL [facility] Comment on above: MPV is a calculated measurement using platelet volume ratio Platelets (Bld) [#/Vol] 183 10*3/uL 140 - 440 10*3/uL [facility] RBC (Bld) [#/Vol] 4.06 10*6/uL 3.80 - 5.2 0 10*6/uL [facility] WBC (Bld) [#/Vol] 10.1 10*3/uL 3.6 - 10.7 10*3/uL [facility] CBC WITH AUTO DIFFERENTIALon 12-21-2024 Basophils (Bld) [#/Vol] 0.0 10*3/uL Normal 0.0-0.2 [facility] Comment on above: Performed By: #### L [id number] ####Pay Station Collector: MARY VALLE ([phone])[facility] JABARI Mad MimiMOISÉSAN (SWRLAB)[address] [place] [address] Basophils/100 WBC (Bld) 0.3 % Normal 0.0-2.0 [facility] Comment on above: Performed By: #### L [id number] ####Pay Station Collector: MARY VALLE ([phone])[facility] JABARI RITTMAN (SWRLAB)[address] [place] [address] Eosinophils (Bld) [#/Vol] 0.0 10*3/uL Normal 0.0-0.5 [facility] Comment on above: Performed By: #### L [id number] ####Pay Station Collector: MARY VALLE ([phone])[employer] RITTMAN (SWRLAB)[address] [place] [address] Eosinophils/100 WBC (Bld) 0.3 % Normal 0.0-6.0 [facility] Comment on above: Performed By: #### L [id number] ####Pay Station Collector: MARY VALLE ([phone])[facility] BAR[facility]ZA RITTMAN (SWRLAB)[address] [place] [address] Erythrocyte distribution width (RBC) [Ratio] 14.3 % Normal 11.5-15.0 [facility] Comment on above: Performed By: #### L [id number] ####Pay Station Collector: MARY VALLE ([phone])[facility]ZA RITTMAN (SWRLAB)[address] [place] [address] Hematocrit (Bld) [Volume fraction] 35.2 % Normal 35.0-47.0 [facility] Comment on above: Performed By: #### L [id number] ####Pay Station Collector: MARY VALLE ([phone])[facility]ZA RITTMAN (SWRLAB)[address] [place] [address] Hemoglobin (Bld) [Mass/Vol] 11.9 g/dL Normal 11.7-16.0 [facility] Comment on above: Performed By: #### L [id number] ####Pay Station Collector: MARY VALLE ([phone])[facility] RITTMAN (SWRLAB)[address] [place] [address] IMMATURE GRANS % 0.8 % Normal 0.0-2.0 [facility] Comment on above: Performed By: #### L [id number] ####Pay Station Collector: MARY VALLE ([phone])[employer]ITTM[employer] (SWRLAB)[address] IMMATURE GRANS ABSOLUTE 0.1 10*3/uL High <0.1 [facility] Comment on above: Performed By: #### L [id number] ####Pay Station Collector: MARY VALLE ([phone])[facility]ZA RITTMAN (SWRLAB)[address] [place] [address] Lymphocytes (Bld) [#/Vol] 1.8 10*3/uL Normal 1.0-4.3 [facility] Comment on above: Performed By: #### L [id number] ####Pay Station Collector: MARY VALLE ([phone])[facility] [employer] [facility] (SWRL[employer])[address] [place] [address] Lymphocytes/100 WBC (Bld) 17.3 % Normal 15.0-45.0 [facility] Comment on above: Performed By: #### L [id number] ####Pay Station Collector: MARY VALLE ([phone])[facility] [employer] [facility] (SWRL[employer])[address] [place] [address] MCH (RBC) [Entitic mass] 29.3 pg Normal 26.0-34.0 [facility] Comment on above: Performed By: #### L [id number] ####Pay Station Collector: MARY VALLE ([phone])[facility] ([facility])[address] [place] [address] MCHC 33.8 % Normal 30.5-36.0 [facility] Comment on above: Performed By: #### L [id number] ####Pay Station Collector: MARY VALLE ([phone])[facility] ([facility])[address] [place] [address] MCV (RBC) [Entitic vol] 86.7 fL Normal 77.0-99.0 [facility] Comment on above: Performed By: #### L [id number] ####Pay Station Collector: MARY VALLE ([phone])[facility] ([facility])[address] [place] [address] [place] Monocytes (Bld) [#/Vol] 0.9 10*3/uL Normal 0.0-0.9 [facility] Comment on above: Performed By: #### L [id number] ####Pay Station Collector: MARY VALLE ([phone])[facility])[address] [place] [address] [place] Monocytes/100 WBC (Bld) 8.6 % Normal 5.0-13.0 [facility] Comment on above: Performed By: #### L [id number] ####Pay Station Collector: MARY VALLE ([phone])[facility] ([facility])[address] [place] [address] [place] NEUTROPHILS ABSOLUTE 7.4 10*3/uL Normal 1.8-7.[address] [facility] Comment on above: Performed By: #### L [id number] ####Pay Station Collector: MARY VALLE ([phone])[facility] ([facility])[address] [place] [address] [place] Neutrophils/100 WBC (Bld) 72.7 % Normal 38.0-82.0 [facility] Comment on above: Performed By: #### L [id number] ####Pay Station Collector: MARY VALLE ([phone])[facility] ([facility])[address] [place] [address] [place] NRBC 0.0 /100 WBCs Normal 0.0-2.0 [facility] Comment on above: Performed By: #### L [id number] ####Pay Station Collector: MARY VALLE ([phone])[facility])[address] [place] [address] [place] Platelet mean volume (Bld) [Entitic vol] 9.6 fL Normal 9.0-12.7 [facility] Comment on above: Result Comment: MPV is a calculated measurement using platelet volume ratio Performed By: #### L [id number] ####Pay Station Collector: MARY VALLE ([phone])[facility] ([facility])[address] [place] [address] Platelets (Bld) [#/Vol] 183 10*3/uL Normal 140-440 [facility] Comment on above: Performed By: #### Mario [id number] ####Pay Station Collector: MARY VALLE ([phone])[facility] ([facility])[address] RBC (Bld) [#/Vol] 4.06 10*6/uL Normal 3.80-5.20 [facility] Comment on above: Performed By: #### Mario [id number] ####Pay Station Collector: MARY VALLE ([phone])[facility] ([facility])[address] [place] [address] WBC (Bld) [#/Vol] 10.1 10*3/uL Normal 3.6-10.7 [facility] Comment on above: Performed By: #### Mario [id number] ####Pay Station Collector: MARY VALLE ([phone])[facility])[address] [place] [address] CNOVon 12-21-2024 CNOV Office Visit (AMADOR ) -------- FELTON PA ([id number]) 1970 F Date Time Provider Department 12/21/24 10:30 AM MONI SALTER During your visit today, we recorded the following information about you: Temperature Pulse Respiration Blood pressure 99 degrees 77/minute 18/minute 133/80 Weight Height 84.4 kg 1.6 m Moni Salter PA-C 12/21/2024 11:02 AM Signed Patient is a 54-year-old female who complains of worsening abdominal pain and cramping with nausea, vomiting and diarrhea that she has been experiencing for the past 2 days. Patient specifically states that she is feeling increased pain to her right lower quadrant with radiation to her back. Patient was immediately advised that she requires laboratory testing and CT scan imaging which is not available at this express care facility. Patient was clearly instructed to report to an emergency department for further evaluation and management. Patient verbalizes complete agreement with this recommendation and states that she will report to the emergency department at [facility] after leaving this [facility]. Patient declines need for EMS transport. Allergies As of Date: 12/21/2024 Noted Allergy Reaction BUPROPION 02/22/2019 14 - Other: See Comments 16 - Unknown OXCARBAZEPINE 02/20/2021 2 - Rash PENICILLINS 09/18/2018 16 - Unknown Comments: have not taken since I was a baby Date Reviewed: 12/21/2024 Reviewed by: Hugo Barron MA - Fully Assessed Reason for Visit: Abdominal Pain [1] Cmt: Abdominal pain/cramping, nausea/vomiting, constipated with diarrhea on Friday, has tried otc meds pepto and advil, felt feverish, hot/cold, some Shortness of Breath Primary Visit Diagnosis:RLQ abdominal pain [R10.31] Prescriptions as of 12/21/2024 - ibuprofen (MOTRIN) 600 mg tablet - mirtazapine (REMERON) 15 mg tablet Take 15 mg by mouth daily at bedtime. - naltrexone ER (VIVITROL) 380 mg injection Inject 380 mg intramuscularly every 4 weeks. - traZODone (DESYREL) 50 mg tablet take as needed one tablet by mouth daily at 10:00 PM 24 hour max: 1 tablet Additional instructions: at bedtime - ARIPiprazole (ABILIFY) 2 mg tablet take one tablet by mouth daily at 10:00 PM - escitalopram oxalate (LEXAPRO) 20 mg tablet Take 1 tablet by mouth every morning. - lisinopril (ZESTRIL) 5 mg tablet Take 1 tablet by mouth every morning. - pantoprazole DR (PROTONIX) 40 mg tablet take one tablet by mouth daily at 6:00 AM Additional instructions: 1/2 to 1 hour before morning meal - spironolactone (ALDACTONE) 25 mg tablet take three tablet by mouth daily at 6:00 AM Additional instructions: 75 mg daily - zonisamide (ZONEGRAN) 100 mg capsule take two capsule by mouth daily at 10:00 PM - zonisamide (ZONEGRAN) 100 mg capsule take one capsule by mouth daily at 6:00 AM Problem List As Of Date: 12/21/2024 (None) Medications Discontinued During This Encounter Prescriptions - Flurbiprofen 100 mg tablet (Discontinued) Take 100 mg by mouth. - methocarbamol (ROBAXIN) 750 mg tablet (Discontinued) take PRN one tablet by mouth starting at 3:00 PM three times a day at 6:00 AM, 3:00 PM, 10:00 PM 24 hour max: 3 tablet Encounter Status:Closed by CLUTTER, MONI on 12/21/[address] [facility] COMPLETE URINALYSIS WITH REF ANIVAL TO CULTUREon 12-21-2024 BACTERIA (#/HPF) IN URINE Moderate Abnormal Negative [facility] Comment on above: Performed By: #### L [id number], [id number] #### Pay Station Collector: MARY VALLE ([phone]) [address] BILIRUBIN, TOTAL PRESENCE IN URINE Negative Normal Negative [facility] Comment on above: Performed By: #### L [id number], [id number] #### Pay Station Collector: MARY VALLE ([phone]) [facility]) [address] [place] [address] Clarity (U) Turbid Abnormal Clear [facility] Comment on above: Performed By: #### L [id number], [id number] #### Pay Station Collector: MARY VALLE ([phone]) [facility]) [address] [place] [address] Color (U) Yellow Normal Lt. Yellow [facility] Comment on above: Performed By: #### L [id number], [id number] #### Pay Station Collector: MARY VALLE ([phone]) [facility] ([facility]) [address] [place] [address] [place] GLUCOSE (MG/DL) IN URINE Normal Normal Normal (<70) [facility] Comment on above: Performed By: #### L [id number], [id number] #### Pay Station Collector: MARY VALLE ([phone]) [facility] ([facility]) [address] [place] [address] HEMOGLOBIN PRESENCE IN URINE Negative Normal Negative [facility] Comment on above: Performed By: #### L [id number], [id number] #### Pay Station Collector: MARY VALLE ([phone]) [facility] ([facility]) [address] [place] [address] Ketones Ql (U) Trace Abnormal Negative [facility] Comment on above: Performed By: #### L [id number], [id number] #### Pay Station Collector: MARY VALLE ([phone]) [facility] ([facility]) [address] [place] [address] LEUKOCYTE ESTERASE PRESENCE IN URINE BY TEST STRIP 500 Kishore/uL Abnormal Negative [facility] Comment on above: Performed By: #### L [id number], [id number] #### Pay Station Collector: MARY VALLE ([phone]) [facility] ([facility]) [address] [place] [address] NITRITE PRESENCE IN URINE Negative Normal Negative [facility] Comment on above: Performed By: #### L [id number], [id number] #### Pay Station Collector: MARY VALLE ([phone]) [facility] ([facility]) [address] [place] [address] pH (U) 6.5 [pH] Normal 5.0-8.0 [facility] Comment on above: Performed By: #### L [id number], [id number] #### Pay Station Collector: MARY VALLE ([phone]) [facility] ([facility]) [address] [place] [address] Protein (U) [Mass/Vol] 20 mg/dL Abnormal Negative [facility] Comment on above: Performed By: #### L [id number], [id number] #### Pay Station Collector: MARY VALLE ([phone]) [facility] ([facility]) [address] [place] [address] RBC (#/HPF) IN URINE SEDIMENT 0-2 Normal 0-2 [facility] Comment on above: Performed By: #### L [id number], [id number] #### Pay Station Collector: MARY VALLE ([phone]) [facility] ([facility]) [address] [place] [address] Specific gravity (U) [Rel density] >1.030 High 1.005-1.030 [facility] Comment on above: Result Comment: SUSIE Lopez COMMENTS: A specimen with <=10 WBC is not consistent with inflammation. This specimen will not reflex to a urine culture. This specimen has been reflexed to urine culture. Performed By: #### L AB17, [id number] #### Pay Station Collector: MARY VALLE ([phone]) [facility] ([facility]) [address] [place] [address] SQUAMOUS EPITHELIAL CELLS (#/HPF) IN URINE SEDIMENT 11-25 Abnormal 3-5 [facility] Comment on above: Performed By: #### L [id number], [id number] #### Pay Station Collector: MARY VALLE ([phone]) [facility]) [address] [place] [address] UROBILINOGEN (MG/DL) IN URINE Normal Normal Normal (0-1) [facility] Comment on above: Performed By: #### L AB17, [id number] #### Pay Station Collector: MARY VALLE ([phone]) [facility]) [address] [place] [address] VOLUME OF URINE QNS for accurate quantitation. Normal [facility] Comment on above: Performed By: #### L AB17, [id number] #### Pay Station Collector: MARY VALLE ([phone]) [facility]) [address] [place] [address] WBC (LEUKOCYTE) (#/HPF) IN URINE SEDIMENT 11-25 Abnormal 0-5 [facility] Comment on above: Performed By: #### L AB17, [id number] #### Pay Station Collector: MARY VALLE ([phone]) [facility] ([facility]) [address] COMPREHENSIVE METABOLIC PANE Ghassan 12-21-2024 Albumin [Mass/Vol] 4.2 g/dL Normal 3.5-5.0 [facility] Comment on above: Performed By: #### L AB17, [id number] ####Pay Station Collector: MARY VALLE ([phone])[facility] ([facility])[address] ALP [Catalytic activity/Vol] 110 U/L Normal 40-150 [facility] Comment on above: Performed By: #### L AB17, LAB99 ####Pay Station Collector: MARY VALLE ([phone])[facility] ([facility])[address] ALT [Catalytic activity/Vol] 22 U/L Normal <30 [facility] Comment on above: Performed By: #### L AB17, LAB99 ####Pay Station Collector: MARY VALLE ([phone])[facility] ([facility])[address] Anion gap [Moles/Vol] 13 mmol/L Normal 3-13 [facility] Comment on above: Performed By: #### L AB17, LAB99 ####Pay Station Collector: MARY VALLE ([phone])[facility] ([facility])[address] [place] [address] [place] AST [Catalytic activity/Vol] 29 U/L Normal <34 [facility] Comment on above: Performed By: #### L AB17, LAB99 ####Pay Station Collector: MARY VALLE ([phone])[facility] ([facility])[address] [place] [address] [place] Bilirubin [Mass/Vol] 0.8 mg/dL Normal <1.2 [facility] Comment on above: Performed By: #### L AB17, LAB99 ####Pay Station Collector: MARY VALLE ([phone])[facility] ([facility])[address] [place] [address] [place] Calcium [Mass/Vol] 9.4 mg/dL Normal 8.4-10.2 [facility] Comment on above: Performed By: #### L AB17, LAB99 ####Pay Station Collector: MARY VALLE ([phone])[facility] ([facility])[address] [place] [address] [place] Chloride [Moles/Vol] 107 mmol/L Normal 98-107 [facility] Comment on above: Performed By: #### L AB17, LAB99 ####Pay Station Collector: MARY VALLE ([phone])[facility] ([facility])[address] [place] [address] [place] CO2 [Moles/Vol] 18 mmol/L Low 22-29 [facility] Comment on above: Performed By: #### L AB17, LAB99 ####Pay Station Collector: MARY VALLE ([phone])[facility] ([facility])[address] [place] [address] [place] Creatinine [Mass/Vol] 1.05 mg/dL Normal 0.57-1.[address] [facility] Comment on above: Performed By: #### L AB17, LAB99 ####Pay Station Collector: MARY VALLE ([phone])[facility] ([facility])[address] [place] [address] [place] GLOMERULAR FILTRATION RATE ML/MIN/1.73 SQ M.PREDICTED 63.7 mL/min/1.73m*2 Normal >60.0 [facility] Comment on above: Result Comment: Calc ulation based on the Chronic Kidney Disease Epidemiology Collaboration (CKD-EPI) equation refit without adjustment for race Performed By: #### L AB17, LAB99 ####Pay Station Collector: MARY VALLE ([phone])[facility] ([facility])[address] [place] [address] [place] Glucose [Mass/Vol] 100 mg/dL Normal 74-100 [facility] Comment on above: Performed By: #### L AB17, LAB99 ####Pay Station Collector: MARY VALLE ([phone])[facility] ([facility])[address] Potassium [Moles/Vol] 3.2 mmol/L Low 3.5-5.[address] [facility] Comment on above: Result Comment: [facility] potassium values may be up to 0.5 mmol/L lower than serum values. Performed By: #### L AB17, LAB99 ####Pay Station Collector: MARY VALLE ([phone])[facility] ([facility])[address] [place] [address] Protein [Mass/Vol] 8.2 g/dL Normal 6.4-8.3 [facility] Comment on above: Performed By: #### L AB17, LAB99 ####Pay Station Collector: MARY VALLE ([phone])[facility] ([facility])[address] [place] [address] [place] Sodium [Moles/Vol] 138 mmol/L Normal 136-145 [facility] Comment on above: Performed By: #### L AB17, LAB99 ####Pay Station Collector: MARY VALLE ([phone])[facility] ([facility])[address] [place] [address] Urea nitrogen [Mass/Vol] 20 mg/dL Normal 9-23 [facility] Comment on above: Performed By: #### L AB17, LAB99 ####Pay Station Collector: MARY VALLE ([phone])[facility] ([facility])[address] [place] [address] CT ABDOMEN PELVIS W CONTRAST on 12-21-2024 CT ABDOMEN PELVIS W CONTRAST Patient Name: FELTON PA : 1970 Exam Date/Time: 12/21/2024 13:15 Procedure: CT ABDOMEN PELVIS W CONTRAST Ordering Provider: XIE HOLLI Reason For Exam: Abdominal pain, acute, nonlocalized CT abdomen and pelvis with contrast History: Pain Technique: 3 mm axial images from the lung bases to just below the pubic symphysis with intravenous contrast Dose reduction was employed with automated exposure control. Cirrhotic liver. Portal hypertension. Esophageal varices. Cholelithiasis. The spleen, pancreas, adrenals and kidneys are normal. No bowel inflammation or obstruction. The appendix is visualized and is normal. No free fluid or free air. The bladder is unremarkable. IMPRESSION: Cirrhotic liver. Portal hypertension. Esophageal varices. Cholelithiasis. Report Dictated on Electronically Signed By: Seferino Chowdhury MD Electronically Signed Date/Time: 12/21/2024 1:32 PM EDT Patient complains of abdominal cramping, vomiting, diarrhea, and chills since Friday Normal [facility] CT Abdomen and Pelvis W cont rast Cathi 12-21-2024 Cirrhotic liver. Portal hypertension. Esophageal varices. Cholelithiasis. Report Dictated on Electronically Signed By: Seferino Chowdhury MD Electronically Signed Date/Time: 12/21/2024 1:32 PM EDT [facility] [place] [employer] Patient Name: FELTON ACHARYA : 1970 Exam Date/Time: 12/21/2024 13:15 Procedure: CT ABDOMEN PELVIS W CONTRAST Ordering Provider: XIE HOLLI Reason For Exam: Abdominal pain, acute, nonlocalized CT abdomen and pelvis with contrast History: Pain Technique: 3 mm axial images from the lung bases to just below the pubic symphysis with intravenous contrast Dose reduction was employed with automated exposure control. Cirrhotic liver. Portal hypertension. Esophageal varices. Cholelithiasis. The spleen, pancreas, adrenals and kidneys are normal. No bowel inflammation or obstruction. The appendix is visualized and is normal. No free fluid or free air. The bladder is unremarkable. [facility] [place] [employer] Seferino Chowdhury MD - 12/21/2024 Patient Name: FELTON PA : 1970 Exam Date/Time: 12/21/2024 13:15 Procedure: CT ABDOMEN PELVIS W CONTRAST Ordering Provider: XIE HOLLI Reason For Exam: Abdominal pain, acute, nonlocalized CT abdomen and pelvis with contrast History: Pain Technique: 3 mm axial images from the lung bases to just below the pubic symphysis with intravenous contrast Dose reduction was employed with automated exposure control. Cirrhotic liver. Portal hypertension. Esophageal varices. Cholelithiasis. The spleen, pancreas, adrenals and kidneys are normal. No bowel inflammation or obstruction. The appendix is visualized and is normal. No free fluid or free air. The bladder is unremarkable. IMPRESSION: Cirrhotic liver. Portal hypertension. Esophageal varices. Cholelithiasis. Report Dictated on Electronically Signed By: Seferino Chowdhury MD Electronically Signed Date/Time: 12/21/2024 1:32 PM EDT [facility] Radiology Study observation (narrative) [facility] CT Abdomen and Pelvis W cont rast IVOrdered By: Seferino Chowdhury on 12-21-2024 [facility] [employer] Work Phone: Comprehensive metabolic 1998 panelon 12-21-2024 Albumin [Mass/Vol] 4.2 g/dL 3.5 - 5.0 g/dL [facility] ALP [Catalytic activity/Vol] 110 U/L 40 - 150 U/L [facility] ALT [Catalytic activity/Vol] 22 U/L NINF - 30 U/L [facility] Anion gap [Moles/Vol] 13 mmol/L 3 - 13 mmol/L [facility] AST [Catalytic activity/Vol] 29 U/L NINF - 34 U/L [facility] Bilirubin [Mass/Vol] 0.8 mg/dL NINF - 1.2 mg/dL [facility] Calcium [Mass/Vol] 9.4 mg/dL 8.4 - 10. 2 mg/dL [facility] Chloride [Moles/Vol] 107 mmol/L 98 - 10 7 mmol/L [facility] CO2 [Moles/Vol] 18 mmol/L Low 22 - 29 mmol/L [facility] Creatinine [Mass/Vol] 1.05 mg/dL 0.57 - 1.11 mg/dL [facility] GFR/1.73 sq M.predicted (S/P/Bld) [Vol rate/Area] 63.7 mL/min - PINF [facility] Comment on above: Calculation based on the Chronic Kidney Disease Epidemiology Collaboration (CKD-EPI) equation refit without adjustment for race Glucose [Mass/Vol] 100 mg/dL 74 - 100 mg/dL [facility] Interpretation and review of laboratory results Abnormal [facility] Potassium [Moles/Vol] 3.2 mmol/L Low 3.5 - 5.1 mmol/L [facility] Comment on above: Plasma potassium fer ues may be up to 0.5 mmol/L lower than serum values. Protein [Mass/Vol] 8.2 g/dL 6.4 - 8.3 g/dL [facility] Sodium [Moles/Vol] 138 mmol/L 136 - 145 mmol/L [facility] Urea nitrogen [Mass/Vol] 20 mg/dL 9 - 23 mg/dL [facility] ED Provider Noteon ED Provider Note EMERGENCY DEPARTMENT ENCOUNTER Pt Name: Felton Pa Birthdate 1970 Date of evaluation: 12/21/2024 ED Provider: Neli Xie DO CHIEF COMPLAINT Chief Complaint Patient presents with Abdominal Pain Patient complains of abdominal cramping, vomiting, diarrhea, and chills since Friday HISTORY OF PRESENT ILLNESS (Location/Symptom, Timing/Onset, Context/Setting, Quality, Duration, Modifying Factors, Severity) Note limiting factors. I wore appropriate PPE for the entirety of this encounter. HPI Felton Pa is a 54 y.o. who presents to the emergency department for evaluation of abdominal cramping, vomiting, diarrhea and chills since Friday. Abdominal cramping is diffuse, without any specific remitting or exacerbating factors. Denies radiation of pain. Denies any urinary symptoms. Denies any fever. Denies any known ill contacts. Denies any hematochezia or hematemesis. 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 Nursing Notes were reviewed. Limitations to history: None Outside historians: None REVIEW OF SYSTEMS Review of Systems Pertinent positives and negatives as per HPI. PAST MEDICAL HISTORY Medical History[1] SURGICAL HISTORY Surgical History[2] CURRENT MEDICATIONS Current Discharge Medication List CONTINUE these medications which have NOT CHANGED Details escitalopram (Lexapro) 20 MG tablet Take 1 tablet (20 mg) by mouth daily. Qty: 90 tablet, Refills: 1 Associated Diagnoses: Anxiety flurbiprofen (Ansaid) 100 MG tablet Take 100 mg by mouth 3 times daily as needed. lisinopril 5 MG tablet Take 1 tablet (5 mg) by mouth daily. Qty: 30 tablet, Refills: 0 mirtazapine (Remeron) 15 MG tablet Take 15 mg by mouth Nightly. naltrexone ER (Vivitrol) injection Inject 4 mL (380 mg) into the buttocks every 28 (twenty-eight) days. Do not start before September 13, 2024. spironolactone (Aldactone) 25 MG tablet Take 3 tablets (75 mg) by mouth daily. Qty: 270 tablet, Refills: 1 Associated Diagnoses: Primary hypertension zonisamide (Zonegran) 100 MG capsule Take 100 mg by mouth. 1 in morning and 2 at night ALLERGIES Bupropion, Levetiracetam, Oxcarbazepine, and Penicillins FAMILY HISTORY Family History[3] SOCIAL HISTORY Social History[4] SCREENINGS PHYSICAL EXAM ED Triage Vitals [12/21/24 1215] Temp Heart Rate Resp BP 36.8 ?C (98.3 ?F) 75 16 (!) 148/85 SpO2 Temp Source Heart Rate Source Patient Position 98 % Oral -- -- BP Location FiO2 (%) -- -- Constitutional/General: Alert and oriented x3 Head: Normocephalic and atraumatic Eyes: PERRL, EOMI, conjunctiva normal, sclera non icteric ENT: Oropharynx clear, handling secretions, no trismus, no asymmetry of the posterior oropharynx or uvular edema Neck: Supple, full ROM, no stridor, no meningeal signs Respiratory: Lungs clear to auscultation bilaterally, no wheezes, rales, or rhonchi. Not in respiratory distress Cardiovascular: Regular rate. Regular rhythm. No murmurs, no gallops, no rubs. 2+ distal pulses. Equal extremity pulses. Chest: No chest wall tenderness GI: Abdomen Soft, diffuse tenderness to palpation, Non distended. No rebound, guarding, or rigidity. No pulsatile masses. Musculoskeletal: Moves all extremities x 4. Warm and well perfused, no clubbing, no cyanosis, no edema. Capillary refill <3 seconds Integument: skin warm and dry. No rashes. Neurologic: GCS 15, no focal deficits, symmetric strength 5/5 in the upper and lower extremities bilaterally Psychiatric: Normal Affect DIAGNOSTIC RESULTS RADIOLOGY (Per Emergency Physician): Interpretation per the Radiologist below, if available at the time of this note: CT abdomen pelvis w contrast Final Result Cirrhotic liver. Portal hypertension. Esophageal varices. Cholelithiasis. Report Dictated on Electronically Signed By: Seferino Chowdhury MD Electronically Signed Date/Time: 12/21/2024 1:32 PM EDT LABS: Labs Reviewed CBC WITH AUTO DIFFERENTIAL - Abnormal Result Value Auto WBC 10.1 RBC 4.06 Hemoglobin 11.9 Hematocrit 35.2 MCV 86.7 MCH 29.3 MCHC 33.8 RDW 14.3 Platelets 183 MPV 9.6 nRBC 0.0 Neutrophils Relative 72.7 Lymphocytes Relative 17.3 Monocytes Relative 8.6 Eosinophils Relative 0.3 Basophils Relative 0.3 Immature Grans % 0.8 Neutrophils Absolute 7.4 Lymphocytes Absolute 1.8 Monocytes Absolute 0.9 Eosinophils Absolute 0.0 Basophils Absolute 0.0 Immature Grans Absolute 0.1 (*) COMPREHENSIVE METABOLIC PANEL - Abnormal SODIUM 138 POTASSIUM 3.2 (*) CHLORIDE 107 CARBON DIOXIDE 18 (*) ANION GAP 13 UREA NITROGEN 20 CREATININE 1.05 GLUCOSE 100 CALCIUM 9.4 AST (SGOT) 29 ALT 22 ALKALINE PHOSPHATASE 110 ALBUMIN 4.2 BILIRUBIN, TOTAL 0.8 TOTAL PROTEIN 8.2 eGFR 63.7 COMPLETE URINALYSIS WITH REFLEX TO CULTURE - Abnormal Color, Urine Yellow Clarity, Urine Turbid (*) pH, Urine 6.5 Leukocytes, Urine 500 (*) Nitrite, U (more content not included)... Normal [facility] LIPASEon 12-21-2024 Lipase [Catalytic activity/Vol] 13 U/L Normal <55 [facility] Comment on above: Performed By: #### L AB17, LAB99 ####Pay Station Collector: MARY VALLE ([phone])[facility] ([facility])[address] [place] [address] Laboratory - Chemistry and C hemistry - challengeon 12-21-2024 Lipase [Catalytic activity/Vol] 13 U/L NINF - 55 U/L [facility] Lipase [Catalytic activity/V ol]on 12-21-2024 Interpretation and review of laboratory results Normal [facility] No Panel Informationon 12-21 [facility] URINE CULTUREon 12-21-2024 Bacteria identified Cx Nom (U) URINE CULTURE Reference Normal urogenital bernardo present [ S = SUSCEPTIBLE R = RESISTANT I = INTERMEDIATE S-DD = Susceptible-dose dependent NS = Non-susceptible NO = No Interpretation ] Normal [facility] Comment on above: Performed By: #### L AB17, [id number] #### Pay Station Collector: MARY VALLE ([phone]) [facility] ([facility]) [address] [place] [address] Urinalysis complete panel (U )Ordered By: Natalie Kumari on 12-21-2024 Bacteria LM.HPF (Urine sed) [#/Area] Moderate Abnormal Negative /HPF [facility] Bilirubin Ql (U) Negative Negative mg/dL [facility] Clarity (U) Turbid Abnormal Clear [facility] Color (U) Yellow Lt. Yellow [facility] Epithelial cells.squamous LM.HPF (Urine sed) [#/Area] 11-25 Abnormal [facility] Glucose Ql (U) Normal Normal (<70) mg/dL [facility] Hemoglobin Ql (U) Negative Negative mg/dL [facility] Interpretation and review of laboratory results Abnormal [facility] Ketones (U) [Mass/Vol] Trace Abnormal Negat manisha mg/dL [facility] Leukocyte esterase Test strip Ql (U) 500 Abnormal Negative Kishore/uL [facility] Nitrite Ql (U) Negative Negative [facility] pH (U) 6.5 [pH] 5.0 - 8.0 pH [facility] Protein (U) [Mass/Vol] 20 mg/dL Abnormal Negative [facility] RBC LM.HPF (Urine sed) [#/Area] 0-2 [facility] Specific gravity (U) [Rel density] High 1.005 - 1.030 [facility] Urobilinogen (U) [Mass/Vol] Normal Normal (0-1) mg/dL [facility] Volume, Urine QNS for accurate quantitation. [facility] WBC LM.HPF (Urine sed) [#/Area] 11-25 Abnormal [facility] A specimen with <=10 WBC is not consistent with inflammation. This specimen will not reflex to a urine culture. This specimen has been reflexed to urine culture. [facility] 36on 12-09-2024 36 Prescription Request : No longer our pt [facility]. [facility] Folates, RBCon 12-09-2024 Fol.,Hemolysate 518.0 ng/mL Normal Not Estab. [facility] Comment on above: Order Comment: Test( s) 631935-Yfv. B1, Whole Bloodwas developed and its performance characteristicsdetermined by [facility]. It has not been cleared or approvedby the Food and Drug Administration. Performed By: #### L 503.6550, L3300.8000, L501.9520, L3100.1725, L503.6150 ####[facility] [address] [place], [address] Folate, RBC 1556 ng/mL Normal >498 [facility] Comment on above: Order Comment: Test( s) [id number]-Tfq. B1, Whole Bloodwas developed and its performance characteristicsdetermined by [facility]. It has not been cleared or approvedby the Food and Drug Administration. Performed By: #### L 503.6550, L3300.8000, L501.9520, L3100.1725, L503.6150 ####[facility] [address] [place], [address] Hematocrit (Bld) [Volume fraction] 33.3 % Low 34.0-46.6 [facility] Comment on above: Order Comment: Test( s) [id number]-Qcl. B1, Whole Bloodwas developed and its performance characteristicsdetermined by [facility]. It has not been cleared or approvedby the Food and Drug Administration. Performed By: #### L 503.6550, L3300.8000, L501.9520, L3100.1725, L503.6150 ####[facility] [address] [place], [address] Vitamin B1, Thiamineon 12-09 VIT B1 THIAMINE 77.5 nmol/L Normal 66.5-200.0 [facility] Comment on above: Order Comment: Test( s) [id number]-Phk. B1, Whole Bloodwas developed and its performance characteristicsdetermined by [employer]. It has not been cleared or approvedby the Food and Drug Administration. Result Comment: Perf ormed at: [facility] [employer] [id number] Director: Aj Poe PhD, Phone: [phone] at: [address] [id number] Director: Apurva Molina MD, Phone: [phone] Performed By: #### L 503.6550, L3300.8000, L501.9520, L3100.1725, L503.6150 ####[facility] [address] [place], [address] Erythrocyte folate measureme nt with hematocritOrdered By: Lorne Henderson on 12-07-2024 Hematocrit (Bld) [Volume fraction] 33.3 % Low 34.0-46.6 [facility] Ferritinon 12-07-2024 Ferritin [Mass/Vol] 19 ng/mL Low 22-378 [facility] Comment on above: Performed By: #### L 503.6550, L3300.8000, L501.9520, L3100.1725, L503.6150 ####[facility] [address] [place], [address] Ironon 12-07-2024 Iron [Mass/Vol] 39 ug/dL Low 50-170 [facility] Comment on above: Performed By: #### L 503.6550, L3300.8000, L501.9520, L3100.1725, L503.6150 ####[facility] [address] [place], [address] Iron measurement (mass/mass) Ordered By: Lorne Henderson on 12-07-2024 Iron (Unsp spec) [Mass/Mass] 39 ug/dL Low 50-170 [facility] Neurology Visit Reporton Neurology Visit Report Normal [facility] Serum or plasma ferritin elisabet surement (mass/volume)Ordered By: Lorne Henderson on 12-07-2024 Ferritin [Mass/Vol] 19 ng/mL Low 22-378 [facility] Serum or plasma thiamine elisabet surement (mass/volume)Ordered By: Lorne Henderson on 12-07-2024 Thiamine [Mass/Vol] 77.5 nmol/L 66.5-200.0 [facility] Comment on above: Performed at: [facility] [employer] [address] [id number] Director: Aj Poe PhD, Phone: [phone] at: [facility] [employer] [id number] Director: Apurva Molina MD, Phone: [phone] TSH DL <= 0.005 mIU/L QnOrde red By: Lorne Henderson on 12-07-2024 TSH Qn 1.910 uIU/mL 0.300-4.200 [facility] Thyroid Stim Hormone (TSH)on 12-07-2024 TSH 1.910 uIU/mL Normal 0.300-4.200 [facility] Comment on above: Performed By: #### L 543.5577, L3300.8000, L501.2920, L3100.1725, L503.6650 ####[facility] [address] [place], [address] Echo Completeon 11-24-2024 Echo Complete Normal [facility] Venous Duplex US - Mateo Extre mon 11-02-2024 Venous Duplex US - Mateo Extrem Normal [facility] Venous duplex ultrasound rep ortOrdered By: Eric Rivas on 11-02-2024 US Vein [facility] Other Phone: Internal Medicine Office Vis iton 10-15-2024 Internal Medicine Office Visit Normal [facility] Ammoniaon 10-07-2024 Ammonia (P) [Moles/Vol] 30.4 umol/L Normal 11-51 [facility] Comment on above: Performed By: #### L 526.8503 ####[facility] [address] [place], [address] Neurology Visit Reporton Neurology Visit Report Normal [facility] Venous blood ammonia measure mentOrdered By: Lorne Henderson on 10-07-2024 Ammonia (P) [Moles/Vol] 30.4 umol/L [facility] Absolute lymphocyte countOrd ered By: Chris Roberts on 10-02-2024 Lymphocytes Auto (Unsp spec) [#/Vol] 1.63 10*3/uL 0.83-4.51 [facility] Absolute neutrophil countOrd ered By: Chris Roberts on 10-02-2024 Neutrophils (Bld) [#/Vol] 2.8 10*3/uL 2.0-7.7 [facility] Anion gap in Serum or Plasma Ordered By: Chris Roberts on 10-02-2024 Anion gap [Moles/Vol] 13 mmol/L 5-15 [facility] Automated lymphocyte count a s percentage of total leukocytesOrdered By: Chris Roberts on 10-02-2024 Lymphocytes/100 WBC Auto (Unsp spec) 31.1 % 19-41 [facility] BUN/creatinine ratioOrdered By: Chris Roberts on 10-02-2024 Urea nitrogen/Creatinine [Mass ratio] 17.0 mg/mg 10-20 [facility] Basophil percentageOrdered B y: Chris Roberts on 10-02-2024 Basophils/100 WBC (Bld) 0.6 % 0-1 [facility] Bilirubin Test strip Ql (U)O rdered By: Chris Roberts on 10-02-2024 Bilirubin Ql (U) Negative Negative [facility] Bilirubin, totalOrdered By: Chris Roberts on 10-02-2024 Bilirubin [Mass/Vol] 0.31 mg/dL 0.00-1.30 [facility] CBC W/Diff, Automatedon 09-08 Absolute Lymph 1.63 X10 3/uL Normal 0.83-4.51 [facility] Comment on above: Performed By: #### L 503.7505, L100.0100, L500.4050 ####[facility] [address] [place], [address] Absolute Neut 2.8 X10 3/uL Normal 2.0-7.7 [facility] Comment on above: Performed By: #### L 503.7505, L100.0100, L500.4050 ####[facility] [address] [place], [address] Basophils/100 WBC (Bld) 0.6 % Normal 0-1 [facility] Comment on above: Performed By: #### L 503.7505, L100.0100, L500.4050 ####[facility] [address] [place], [address] Eosinophils/100 WBC (Bld) 3.6 % Normal 0-5 [facility] Comment on above: Performed By: #### L 503.7505, L100.0100, L500.4050 ####[facility] [address] [place], [address] Erythrocyte distribution width (RBC) [Ratio] 14.5 % Normal 11.6-14.6 [facility] Comment on above: Performed By: #### L 503.7505, L100.0100, L500.4050 ####[facility] [address] [place], [address] Hematocrit (Bld) [Volume fraction] 28.3 % Low 37-47 [facility] Comment on above: Performed By: #### L 503.7505, L100.0100, L500.4050 ####[facility] [address] [place], [address] Hemoglobin (Bld) [Mass/Vol] 9.3 g/dL Low 12.0-15.0 [facility] Comment on above: Performed By: #### L 503.7505, L100.0100, L500.4050 ####[facility] [address] [place], [address] IG% 0.600 Normal 0.0-0.9 [facility] Comment on above: Result Comment: IG% - Immature Granulocytes (promyelocytes, myelocytes andmetamyelocytes) > 1% indicates that a LEFT SHIFT is Present. Performed By: #### L 503.7505, L100.0100, L500.4050 ####[facility] [address] [place], [address] Lymphocytes/100 WBC (Bld) 31.1 % Normal 19-41 [facility] Comment on above: Performed By: #### L 503.7505, L100.0100, L500.4050 ####[facility] [address] [place], [address] MCH (RBC) [Entitic mass] 31.2 pg Normal 27.0-32.0 [facility] Comment on above: Performed By: #### L 503.7505, L100.0100, L500.4050 ####[facility] [address] [place], [address] MCHC (RBC) [Mass/Vol] 32.9 g/dL Normal 32-36 [facility] Comment on above: Performed By: #### L 503.7505, L100.0100, L500.4050 ####[facility] [address] [place], [address] MCV (RBC) [Entitic vol] 95.0 fL Normal 81-99 [facility] Comment on above: Performed By: #### L 503.7505, L100.0100, L500.4050 ####[facility] [address] [place], [address] Monocytes/100 WBC (Bld) 9.9 % Normal 0-10 [facility] Comment on above: Performed By: #### L 503.7505, L100.0100, L500.4050 ####[facility] [address] [place], [address] Neutrophils/100 WBC (Bld) 54.2 % Normal 47-70 [facility] Comment on above: Performed By: #### L 503.7505, L100.0100, L500.4050 ####[facility] [address] [place], [address] Nucleated RBC (Bld) [#/Vol] 0 10*3/uL Normal 0-5 [facility] Comment on above: Performed By: #### L 503.7505, L100.0100, L500.4050 ####[facility] [address] [place], [address] Platelet mean volume (Bld) [Entitic vol] 9.4 fL Normal 6.2-12.0 [facility] Comment on above: Performed By: #### L 503.7505, L100.0100, L500.4050 ####[facility] [address] [place], [address] Platelets (Bld) [#/Vol] 163 10*3/uL Normal 150-450 [facility] Comment on above: Performed By: #### L 503.7505, L100.0100, L500.4050 ####[facility] [address] [place], [address] RBC (Bld) [#/Vol] 2.98 10*6/uL Low 4.2-5.4 [facility] Comment on above: Performed By: #### L 503.7505, L100.0100, L500.4050 ####[facility] [address] [place], [address] RDW SD 50.5 fl High 35.1-43.9 [facility] Comment on above: Performed By: #### L 503.7505, L100.0100, L500.4050 ####[facility] [address] [place], [address] WBC (Bld) [#/Vol] 5.2 10*3/uL Normal 4.4-11.0 [facility] Comment on above: Performed By: #### L 503.7505, L100.0100, L500.4050 ####[facility] [address] [place], [address] Carbon dioxide, total [Moles /volume] in Central venous bloodOrdered By: Chris Roberts on 10-02-2024 CO2 [Moles/Vol] 19.8 mmol/L Low 21.0-32.0 [facility] Chloride assayOrdered By: Margaret Roberts on 10-02-2024 Chloride [Moles/Vol] 107 mmol/L 98-108 [facility] Comprehensive Metabolic Prof ilon 10-02-2024 Albumin [Mass/Vol] 3.6 g/dL Normal 3.5-5.0 [facility] Comment on above: Performed By: #### L 503.7505, L100.0100, L500.4050 ####[facility] [address] [place], [address] Albumin/Globulin [Mass ratio] 1.2 {ratio} Normal 0.9-2.4 [facility] Comment on above: Performed By: #### L 503.7505, L100.0100, L500.4050 ####[facility] [address] [place], [address] ALK PHOS 93 U/L Normal 35-104 [facility] Comment on above: Performed By: #### L 503.7505, L100.0100, L500.4050 ####[facility] [address] [place], [address] ALT [Catalytic activity/Vol] 11 U/L Normal <=34 [facility] Comment on above: Performed By: #### L 503.7505, L100.0100, L500.4050 ####[facility] [address] [place], [address] AST [Catalytic activity/Vol] 19 U/L Normal <=31 [facility] Comment on above: Performed By: #### L 503.7505, L100.0100, L500.4050 ####[facility] [address] [place], [address] Bilirubin [Mass/Vol] 0.31 mg/dL Normal 0.00-1.30 [facility] Comment on above: Performed By: #### L 503.7505, L100.0100, L500.4050 ####[facility] [address] [place], [address] BUN/CRE 17.0 RATIO Normal 10-20 [facility] Comment on above: Performed By: #### L 503.7505, L100.0100, L500.4050 ####[facility] [address] [place], [address] Calcium [Mass/Vol] 9.5 mg/dL Normal 7.6-11.0 [facility] Comment on above: Performed By: #### L 503.7505, L100.0100, L500.4050 ####[facility] [address] [place], [address] Chloride [Moles/Vol] 107 mmol/L Normal 98-108 [facility] Comment on above: Performed By: #### L 503.7505, L100.0100, L500.4050 ####[facility] [address] [place], [address] CO2 [Moles/Vol] 19.8 mmol/L Low 21.0-32.0 [facility] Comment on above: Performed By: #### L 503.7505, L100.0100, L500.4050 ####[facility] [address] [place], [address] Creatinine [Mass/Vol] 0.88 mg/dL Normal 0.70-1.20 [facility] Comment on above: Performed By: #### L 503.7505, L100.0100, L500.4050 ####[facility] [address] [place], [address] ECRCL 79.44 ml/min Normal 50-250 [facility] Comment on above: Performed By: #### L 503.7505, L100.0100, L500.4050 ####[facility] [address] [place], [address] GAP 13 Normal 5-15 [facility] Comment on above: Performed By: #### L 503.7505, L100.0100, L500.4050 ####[facility] [address] [place], [address] GFR/1.73 sq M.predicted among non-blacks MDRD (S/P/Bld) [Vol rate/Area] 79 mL/min/{1.73_m2} Normal >60 [facility] Comment on above: Result Comment: mL/m in/1.73m2 CKD-EPI Creatinine Equation (2020) Performed By: #### L 503.7505, L100.0100, L500.4050 ####[facility] [address] [place], [address] Globulin (S) [Mass/Vol] 3.0 g/dL Normal 2.2-4.2 [facility] Comment on above: Performed By: #### L 503.7505, L100.0100, L500.4050 ####[facility] [address] [place], [address] Glucose [Mass/Vol] 158 mg/dL High 70-99 [facility] Comment on above: Performed By: #### L 503.7505, L100.0100, L500.4050 ####[facility] [address] [place], [address] Potassium [Moles/Vol] 3.9 mmol/L Normal 3.3-5.1 [facility] Comment on above: Performed By: #### L 503.7505, L100.0100, L500.4050 ####[facility] [address] [place], [address] Sodium [Moles/Vol] 140 mmol/L Normal 133-145 [facility] Comment on above: Performed By: #### L 503.7505, L100.0100, L500.4050 ####[facility] [address] [place], [address] T PROT 6.6 g/dL Normal 5.9-8.4 [facility] Comment on above: Performed By: #### L 503.7505, L100.0100, L500.4050 ####[facility] [address] [place], [address] Urea nitrogen [Mass/Vol] 15 mg/dL Normal 4-19 [facility] Comment on above: Performed By: #### L 503.7505, L100.0100, L500.4050 ####[facility] [address] [place], [address] Emergency Department Summary on 10-02-2024 Emergency Department Summary Normal [facility] Eosinophil percentageOrdered By: Chris Roberts on 10-02-2024 Eosinophils/100 WBC (Bld) 3.6 % 0-5 [facility] Erythrocyte distribution wid th ratioOrdered By: Chris Roberts on 10-02-2024 Erythrocyte distribution width (RBC) [Ratio] 14.5 % 11.6-14.6 [facility] Erythrocyte distribution wid th standard deviationOrdered By: Chris Roberts on 10-02-2024 Erythrocyte distribution width (RBC) [Ratio] 50.5 fl High 35.1-43.9 [facility] Glomerular filtration rate ( GFR) estimation/1.73 sq m using serum, plasma, or whole bOrdered By: Chris Roberts on 10-02-2024 GFR/1.73 sq M.predicted among non-blacks MDRD (S/P/Bld) [Vol rate/Area] 79 mL/min/{1.73_m2} >60 [facility] Comment on above: mL/min/1.73m2 CKD-EP I Creatinine Equation (2020) Hematocrit Auto (Bld) [Volum e fraction]Ordered By: Chris Roberts on 10-02-2024 Hematocrit (Bld) [Volume fraction] 28.3 % Low 37-47 [facility] Hemoglobin measurementOrdere d By: Chris Roberts on 10-02-2024 Hemoglobin (Bld) [Mass/Vol] 9.3 g/dL Low 12.0-15.0 [facility] Immature granulocytes/100 WB C Auto (Bld)Ordered By: Chris Roberts on 10-02-2024 Immature granulocytes/100 WBC (Bld) 0.600 % 0.0-0.9 [facility] Comment on above: IG% - Immature Granu locytes (promyelocytes, myelocytes and metamyelocytes) > 1% indicates that a LEFT SHIFT is Present. Ketones Test strip Ql (U)Ord ered By: Chris Roberts on 10-02-2024 Ketones Ql (U) Negative Negative [facility] L503.7505on 10-02-2024 Natriuretic peptide B (Bld) [Mass/Vol] 82 pg/mL Normal <=900 [facility] Comment on above: Result Comment: Hear t Failure Unlikely: < 300 pg/mLHeart Failure Likely< 50 Years: > 450 pg/mL50-75 Years: > 900 pg/mL>75 Years: > 1800 pg/mL Performed By: #### L 503.7505, L100.0100, L500.4050 ####[facility] [address] [place], [address] Laboratory - Chemistry and C hemistry - challengeOrdered By: Chris Roberts on 10-02-2024 AST [Catalytic activity/Vol] 19 U/L <32 [facility] MCV (mean corpuscular volume ) determinationOrdered By: Chris Roberts on 10-02-2024 MCV (RBC) [Entitic vol] 95.0 fL 81-99 [facility] Mean corpuscular hemoglobin (MCH) determinationOrdered By: Chris Roberts on 10-02-2024 MCH (RBC) [Entitic mass] 31.2 pg 27.0-32.0 [facility] Mean corpuscular hemoglobin concentration (MCHC) determinationOrdered By: Chris Roberts on 10-02-2024 MCHC (RBC) [Mass/Vol] 32.9 g/dL 32-36 [facility] Mean platelet volume determi nationOrdered By: Chris Roberts on 10-02-2024 Platelet mean volume (Bld) [Entitic vol] 9.4 fL 6.2-12.0 [facility] Microscopic analysis of urin e for red blood cells (RBC)Ordered By: Chris Roberts on 10-02-2024 Microscopic analysis of urine for red blood cells (RBC) 0 SEEN /hpf 0-5 [facility] Monocyte percentageOrdered B y: Chris Roberts on 10-02-2024 Monocytes/100 WBC (Bld) 9.9 % 0-10 [facility] Mucus LM Ql (Urine sed)Order ed By: Chris Roberts on 10-02-2024 Mucus Ql (Urine sed) 0 SEEN /hpf [facility] Natriuretic peptide.B prohor dayton N-Terminal [Mass/volume] in Serum or PlasmaOrdered By: Chris Roberts on 10-02-2024 Natriuretic peptide.B prohormone N-Terminal [Mass/Vol] 82 pg/mL <900 [facility] Comment on above: Heart Failure Unlike ly: < 300 pg/mLHeart Failure Likely< 50 Years: > 450 pg/mL50-75 Years: > 900 pg/mL>75 Years: > 1800 pg/mL Neutrophil percentageOrdered By: Chris Roberts on 10-02-2024 Neutrophils/100 WBC (Bld) 54.2 % 47-70 [facility] Nitrite Test strip Ql (U)Ord ered By: Chris Roberts on 10-02-2024 Nitrite Ql (U) Negative Negative [facility] No Panel InformationOrdered By: Chris Roberts on 10-02-2024 19 U/L <32 [facility] Nucleated red blood cell per centageOrdered By: Chris Roberts on 10-02-2024 Nucleated RBC/100 WBC (Bld) [Ratio] 0 % 0-5 [facility] Platelet countOrdered By: Margaret Roberts on 10-02-2024 Platelets (Bld) [#/Vol] 163 10*3/uL 150-450 [facility] Potassium measurement (mass/ volume)Ordered By: Chris Roberts on 10-02-2024 Potassium (Unsp spec) [Mass/Vol] 3.9 mmol/L 3.3-5.1 [facility] Protein Test strip Ql (U)Ord ered By: Chris Roberts on 10-02-2024 Protein Ql (U) 15 mg/dl High Negative [facility] RBC Auto (Bld) [#/Vol]Ordere d By: Chris Roberts on 10-02-2024 RBC (Bld) [#/Vol] 2.98 10*6/uL Low 4.2-5.4 [facility] Serum creatinine measurement (mass/volume)Ordered By: Chris Roberts on 10-02-2024 Creatinine [Mass/Vol] 0.88 mg/dL 0.70-1.20 [facility] Serum globulin measurementOr dered By: Chris Roberts on 10-02-2024 Globulin (S) [Mass/Vol] 3.0 g/dL 2.2-4.2 [facility] Serum glucose measurement (m ass/volume)Ordered By: Chris Roberts on 10-02-2024 Glucose [Mass/Vol] 158 mg/dL High 70-99 [facility] Serum or plasma alanine boyce otransferase (ALT) measurementOrdered By: Chris Roberts on 10-02-2024 ALT [Catalytic activity/Vol] 11 U/L <35 [facility] Serum or plasma albumin ferdinand urement (mass/volume)Ordered By: Chris Roberts on 10-02-2024 Albumin [Mass/Vol] 3.6 g/dL 3.5-5.0 [facility] Serum or plasma albumin/glob ulin mass ratioOrdered By: Chris Roberts on 10-02-2024 Albumin/Globulin [Mass ratio] 1.2 {ratio} 0.9-2.4 [facility] Serum or plasma alkaline garry sphatase measurementOrdered By: Chris Roberts on 10-02-2024 ALP [Catalytic activity/Vol] 93 U/L 35-104 [facility] Serum or plasma calcium ferdinand urement (mass/volume)Ordered By: Chris Roberts on 10-02-2024 Calcium [Mass/Vol] 9.5 mg/dL 7.6-11.0 [facility] Serum or plasma urea nitroge n measurement (mass/volume)Ordered By: Chris Roberts on 10-02-2024 Urea nitrogen [Mass/Vol] 15 mg/dL 4-19 [facility] Sodium levelOrdered By: Carlos Roberts on 10-02-2024 Sodium [Moles/Vol] 140 mmol/L 133-145 [facility] Squamous epithelial cells de tection in urine sediment by light microscopyOrdered By: Chris Roberts on 10-02-2024 Epithelial cells.squamous LM Ql (Urine sed) 0-5 SEEN /hpf 5-10 [facility] Total proteinOrdered By: Mark Roberts on 10-02-2024 Protein [Mass/Vol] 6.6 g/dL 5.9-8.4 [facility] Urinalysis, Completeon 10-02 BACTERIA 2+ /hpf Normal None Seen [facility] Comment on above: Order Comment: MARCOS MILLER TO SPECIFY Performed By: #### L 400.0001 ####[facility] [address] [facility]. [place], [place], [id number] EPI,SQUAMOUS 0-5 SEEN Normal 5-10 [facility] Comment on above: Order Comment: MARCOS MILLER TO SPECIFY Performed By: #### L 400.0001 ####[facility] [address] [facility] [place], [address] WBC 0-5 SEEN Normal 0-5 [facility] Comment on above: Order Comment: MARCOS MILLER TO SPECIFY Performed By: #### L 400.0001 ####[facility] [address] [place], [address] BILIRUBIN URINE Negative Normal Negative [facility] Comment on above: Order Comment: MARCOS CTOR TO SPECIFY Performed By: #### L 400.0001 ####[facility] [address] [place], [address] Clarity (U) Clear Normal Clear [facility] Comment on above: Order Comment: MARCOS CTOR TO SPECIFY Performed By: #### L 400.0001 ####[facility] [address] [place], [address] Color (U) Straw Normal Yellow [facility] Comment on above: Order Comment: MARCOS CTOR TO SPECIFY Performed By: #### L 400.0001 ####[facility] [address] [place], [address] GLUCOSE, UR Normal Normal Normal [facility] Comment on above: Order Comment: MARCOS CTOR TO SPECIFY Performed By: #### L 400.0001 ####[facility] [address] [place], [address] KETONE UR Negative Normal Negative [facility] Comment on above: Order Comment: MARCOS CTOR TO SPECIFY Performed By: #### L 400.0001 ####[facility] [address] [place], [address] LEUK ESTERASE 25 /ul Abnormal Negative [facility] Comment on above: Order Comment: MARCOS CTOR TO SPECIFY Performed By: #### L 400.0001 ####[facility] [address] [place], [address] Nitrite Ql (U) Negative Normal Negative [facility] Comment on above: Order Comment: MARCOS CTOR TO SPECIFY Performed By: #### L 400.0001 ####[facility] [address] [place], [address] OCCULT BLOOD-UR Negative Normal Negative [facility] Comment on above: Order Comment: MARCOS CTOR TO SPECIFY Performed By: #### L 400.0001 ####[facility] [address] [place], [address] pH UR 6.5 Normal 5.0 - 8.0 [facility] Comment on above: Order Comment: MARCOS CTOR TO SPECIFY Performed By: #### L 400.0001 ####[facility] [address] [place], [address] PROT DIPSTX 15 mg/dl Abnormal Negative [facility] Comment on above: Order Comment: MARCOS CTOR TO SPECIFY Performed By: #### L 400.0001 ####[facility] [address] [place], [address] SP.GR. DIPSTX 1.015 Normal 1.002-1.030 [facility] Comment on above: Order Comment: MARCOS CTOR TO SPECIFY Performed By: #### L 400.0001 ####[facility] [address] [place], [address] UROBILI 1 mg/dl Abnormal Normal [facility] Comment on above: Order Comment: MARCOS CTOR TO SPECIFY Performed By: #### L 400.0001 ####[facility] [address] [place], [address] Mucus Ql (Urine sed) 0 SEEN Normal [facility] Comment on above: Order Comment: MARCOS CTOR TO SPECIFY Performed By: #### L 400.0001 ####[facility] [address] [place], [address] RBC 0 SEEN Normal 0-5 [facility] Comment on above: Order Comment: MARCOS CTOR TO SPECIFY Performed By: #### L 400.0001 ####[facility] [address] [place], [address] Urine clarityOrdered By: Mark Roberts on 10-02-2024 Clarity (U) Clear Clear [facility] Urine color determinationOrd ered By: Chris Roberts on 10-02-2024 Color (U) Straw Yellow [facility] Urine glucose detectionOrder ed By: Chris Roberts on 10-02-2024 Glucose Ql (U) Normal mg/dl Normal [facility] Urine leukocyte esterase det ection by dipstickOrdered By: Chris Roberts on 10-02-2024 Leukocyte esterase Test strip Ql (U) 25 /ul High Negative [facility] Urine pHOrdered By: Chris Roberts on 10-02-2024 pH (U) 6.5 [pH] 5.0 - 8.0 [facility] Urine sediment bacteria coun t by microscopy (number/high power field)Ordered By: Chris Roberts on 10-02-2024 Bacteria LM.HPF (Urine sed) [#/Area] 2 /[HPF] None Seen [facility] Urine specific gravity measu rementOrdered By: Chris Roberts on 10-02-2024 Specific gravity (U) [Rel density] 1.015 1.002-1.030 [facility] Urine urobilinogen measureme ntOrdered By: Chris Roberts on 10-02-2024 Urobilinogen Ql (U) 1 mg/dl High Normal [facility] White blood cell (WBC) count Ordered By: Chris Roberts on 10-02-2024 WBC (Bld) [#/Vol] 5.2 10*3/uL 4.4-11.0 [facility] White blood cell countOrdere d By: Chris Roberts on 10-02-2024 White blood cell count 0-5 SEEN /hpf 0-5 [facility] CBC W Auto Differential pane l (Bld)on 09-20-2024 Basophils (Bld) [#/Vol] 0 10*3/uL 0.0 - 0.2 10*3/uL [facility] Basophils/100 WBC (Bld) 0.7 % 0.0 - 2.0 % [facility] Eosinophils (Bld) [#/Vol] 0.2 10*3/uL 0.0 - 0.5 10*3/uL [facility] Eosinophils/100 WBC (Bld) 3 % 0.0 - 6.0 % [facility] Erythrocyte distribution width (RBC) [Ratio] 14.6 % 11.5 - 15.0 % [facility] Hematocrit (Bld) [Volume fraction] 30.2 % Low 35.0 - 47.0 % [facility] Hemoglobin (Bld) [Mass/Vol] 9.8 g/dL Low 11.7 - 16.0 g/dL [facility] Immature granulocytes (Bld) [#/Vol] 0 10*3/uL NINF - 0.1 10*3/uL [facility] Immature granulocytes/100 WBC (Bld) 0.4 % 0.0 - 2.0 % [facility] Interpretation and review of laboratory results Abnormal [facility] Lymphocytes (Bld) [#/Vol] 1.3 10*3/uL 1.0 - 4.3 10*3/uL [facility] Lymphocytes/100 WBC (Bld) 22.3 % 15.0 - 45.0 % [facility] MCH (RBC) [Entitic mass] 31.7 pg 26.0 - 34.0 pg [facility] MCHC (RBC) [Mass/Vol] 32.5 % 30.5 - 36.0 % [facility] MCV (RBC) [Entitic vol] 97.7 fL 77.0 - 99.0 fL [facility] Monocytes (Bld) [#/Vol] 0.7 10*3/uL 0.0 - 0.9 10*3/uL [facility] Monocytes/100 WBC (Bld) 11.6 % 5.0 - 13.0 % [facility] Neutrophils (Bld) [#/Vol] 3.5 10*3/uL 1.8 - 7.5 10*3/uL [facility] Neutrophils/100 WBC (Bld) 62 % 38.0 - 82.0 % [facility] Nucleated RBC/100 WBC (Bld) [Ratio] 0 % [facility] Platelet mean volume (Bld) [Entitic vol] 9.2 fL 9.0 - 12.7 fL [facility] Comment on above: MPV is a calculated measurement using platelet volume ratio Platelets (Bld) [#/Vol] 162 10*3/uL 140 - 440 10*3/uL [facility] RBC (Bld) [#/Vol] 3.09 10*6/uL Low 3.80 - 5.2 0 10*6/uL [facility] WBC (Bld) [#/Vol] 5.7 10*3/uL 3.6 - 10.7 10*3/uL [facility] CBC WITH AUTO DIFFERENTIALon 09-20-2024 Basophils (Bld) [#/Vol] 0.0 10*3/uL Normal 0.0-0.2 [facility] Comment on above: Performed By: #### L AB17, [id number] #### Pay Station Collector: MARY VALLE ([phone]) [facility] ([facility]) [address] [place] [address] Basophils/100 WBC (Bld) 0.7 % Normal 0.0-2.0 [facility] Comment on above: Performed By: #### L AB17, [id number] #### Pay Station Collector: MARY VALLE ([phone]) [facility] ([facility]) [address] [place] [address] Eosinophils (Bld) [#/Vol] 0.2 10*3/uL Normal 0.0-0.5 [facility] Comment on above: Performed By: #### L AB17, [id number] #### Pay Station Collector: MARY VALLE ([phone]) [facility] ([facility]) [address] [place] [address] Eosinophils/100 WBC (Bld) 3.0 % Normal 0.0-6.0 [facility] Comment on above: Performed By: #### L AB17, [id number] #### Pay Station Collector: MARY VALLE ([phone]) [facility]) [address] [place] [address] Erythrocyte distribution width (RBC) [Ratio] 14.6 % Normal 11.5-15.0 [facility] Comment on above: Performed By: #### L AB17, [id number] #### Pay Station Collector: MARY VALLE ([phone]) [facility]) [address] [place] [address] Hematocrit (Bld) [Volume fraction] 30.2 % Low 35.0-47.0 [facility] Comment on above: Performed By: #### L AB17, [id number] #### Pay Station Collector: MARY VALLE ([phone]) [facility]) [address] [place] [address] Hemoglobin (Bld) [Mass/Vol] 9.8 g/dL Low 11.7-16.0 [facility] Comment on above: Performed By: #### L AB17, [id number] #### Pay Station Collector: MARY VALLE ([phone]) [facility]) [address] [place] [address] IMMATURE GRANS % 0.4 % Normal 0.0-2.0 [facility] Comment on above: Performed By: #### L AB17, [id number] #### Pay Station Collector: MARY VALLE ([phone]) [address] IMMATURE GRANS ABSOLUTE 0.0 10*3/uL Normal <0.1 [facility] Comment on above: Performed By: #### L AB17, [id number] #### Pay Station Collector: MARY VALLE ([phone]) [facility]) [address] [place] [address] Lymphocytes (Bld) [#/Vol] 1.3 10*3/uL Normal 1.0-4.3 [facility] Comment on above: Performed By: #### L AB17, [id number] #### Pay Station Collector: MARY VALLE ([phone]) [address] Lymphocytes/100 WBC (Bld) 22.3 % Normal 15.0-45.0 [facility] Comment on above: Performed By: #### L AB17, [id number] #### Pay Station Collector: MARY VALLE ([phone]) [facility]) [address] [place] [address] MCH (RBC) [Entitic mass] 31.7 pg Normal 26.0-34.0 [facility] Comment on above: Performed By: #### L AB17, [id number] #### Pay Station Collector: MARY VALLE ([phone]) [facility]) [address] [place] [address] MCHC 32.5 % Normal 30.5-36.0 [facility] Comment on above: Performed By: #### L AB17, [id number] #### Pay Station Collector: MARY VALLE ([phone]) [facility] ([facility]) [address] [place] [address] MCV (RBC) [Entitic vol] 97.7 fL Normal 77.0-99.0 [facility] Comment on above: Performed By: #### L AB17, [id number] #### Pay Station Collector: MARY VALLE ([phone]) [facility] ([facility]) [address] [place] [address] Monocytes (Bld) [#/Vol] 0.7 10*3/uL Normal 0.0-0.9 [facility] Comment on above: Performed By: #### L AB17, [id number] #### Pay Station Collector: MARY VALLE ([phone]) [facility] ([facility]) [address] [place] [address] Monocytes/100 WBC (Bld) 11.6 % Normal 5.0-13.0 [facility] Comment on above: Performed By: #### L AB17, [id number] #### Pay Station Collector: MARY VALLE ([phone]) [facility] ([facility]) [address] [place] [address] NEUTROPHILS ABSOLUTE 3.5 10*3/uL Normal 1.8-7.5 [facility] Comment on above: Performed By: #### L AB17, [id number] #### Pay Station Collector: MARY VALLE ([phone]) [facility] ([facility]) [address] [place] [address] Neutrophils/100 WBC (Bld) 62.0 % Normal 38.0-82.0 [facility] Comment on above: Performed By: #### L AB17, [id number] #### Pay Station Collector: MARY VALLE ([phone]) [facility] ([facility]) [address] [place] [address] NRBC 0.0 /100 WBCs Normal 0.0-2.0 [facility] Comment on above: Performed By: #### Mario JOSE17, [id number] #### Pay Station Collector: MAYR VALLE ([phone]) [facility]) [address] [place] [address] Platelet mean volume (Bld) [Entitic vol] 9.2 fL Normal 9.0-12.7 [facility] Comment on above: Result Comment: MPV is a calculated measurement using platelet volume ratio Performed By: #### Mario SANDOVAL, [id number] #### Pay Station Collector: MARY VALLE ([phone]) [facility] ([facility]) [address] [place] [address] Platelets (Bld) [#/Vol] 162 10*3/uL Normal 140-440 [facility] Comment on above: Performed By: #### Mario SANDOVAL, [id number] #### Pay Station Collector: MARY VALLE ([phone]) [facility] ([facility]) [address] [place] [address] RBC (Bld) [#/Vol] 3.09 10*6/uL Low 3.80-5.20 [facility] Comment on above: Performed By: #### Mario SANDOVAL, [id number] #### Pay Station Collector: MARY VALLE ([phone]) [facility] ([facility]) [address] [place] [address] WBC (Bld) [#/Vol] 5.7 10*3/uL Normal 3.6-10.7 [facility] Comment on above: Performed By: #### Mario SANDOVAL, [id number] #### Pay Station Collector: MARY VALLE ([phone]) [facility] ([facility]) [address] [place] [address] Dorothy 09-20-2024 EARLENEOV Office Visit (WALKWA ) -------- FELTON PA ([id number]) 1970 F Date Time Provider Department 09/20/24 9:25 AM PAUL CHRISTIANSON Mario ENGLISH During your visit today, we recorded the following information about you: Temperature Pulse Respiration Blood pressure 97.6 degrees 104/minute 16/minute 111/70 Weight 85.3 kg Paul Christianson PA-C 09/20/2024 10:05 AM Signed PATIENT NAME: Felton Pa DATE OF : 1970 TODAYS' DATE: 09/20/2024 Recording using ambient Telera software for draft documentation of the visit was discussed with the patient/authorized underwriting account representative; all questions welcomed and answered. Patient/authorized underwriting account representative agreed to proceed Surgical mask and gloves worn for all in-person care. Triage: SUBJECTIVE: Patient presents with: other: Both Ankles started to swell up on . SOB. Both hands tingling. History of Present Illness: This is a 54 year old that is here today for concern for swelling in the feet and ankles, bilateral hand tingling, and shortness of breath x 4 days. Discharged last month from admission for alcohol withdrawal, dehydration, and hypokalemia. H/O HTN and seizure disorder. Noted left foot/calf/ankle swelling 4 days ago, but no the right foot/claf/ankle are also swollen. Still greater on left. Noted a new feeling of FIERRO today too. No h/o edema or CHF/renal problems. Denies recent cough or sick symptoms. Denies fever, chills, sweats, body aches, or fatigue. Patient denies chest pain , heart palpitations, hear racing, n/v, chest pressure/chest tightness, wheezing, increased WOB, or chest pain. No n/v/d, AGRAWAL, or rash. Chart review: Discharged last month from admission for alcohol withdrawal, dehydration, and hypokalemia. Covid Immunization Dates Current Care Gaps Covid-19 Vaccine ( season) Never done No completion, postpone, frequency change, or communication history exists for this topic. Asthma: none Pneumonia: none Tobacco: none Pain on scale of 0-10 with 0 being no pain and 10 being greatest pain: 0 Nothing makes the symptoms better. Nothing makes them worse. Self-treatment:. none The severity is mild and the symptoms are not improving. The patient did not have a similar problem in the last 3 months. The patient did not take any antibiotics in the last 3 months. Barriers to learning: none. Reviewed meds, OTCs, herbals or supplements. Reviewed allergies, medications, social history, and past medical history. Allergies: Allergies: Bupropion Other: See Comments, Unknown Oxcarbazepine Rash Penicillins Unknown Comment:have not taken since I was a baby Past Medical History: No past medical history on file. Past Surgical History: No past surgical history on file. Family History: No family history on file. Tobacco History: Tobacco Use: Not on file Medications: Current Outpatient Medications Medication Sig Dispense Refill methocarbamol (ROBAXIN) 750 mg tablet take PRN one tablet by mouth starting at 3:00 PM three times a day at 6:00 AM, 3:00 PM, 10:00 PM 24 hour max: 3 tablet 90 tablet 0 traZODone (DESYREL) 50 mg tablet take as needed one tablet by mouth daily at 10:00 PM 24 hour max: 1 tablet Additional instructions: at bedtime 90 tablet 0 ARIPiprazole (ABILIFY) 2 mg tablet take one tablet by mouth daily at 10:00 PM 90 tablet 0 escitalopram oxalate (LEXAPRO) 20 mg tablet Take 1 tablet by mouth every morning. 90 tablet 0 lisinopril (ZESTRIL) 5 mg tablet Take 1 tablet by mouth every morning. [address] (PROTONIX) 40 mg tablet take one tablet by mouth daily at 6:00 AM Additional instructions: 1/2 to 1 hour before morning meal 90 tablet 0 spironolactone (ALDACTONE) 25 mg tablet take three tablet by mouth daily at 6:00 AM Additional instructions: 75 mg daily 270 tablet 0 zonisamide (ZONEGRAN) 100 mg capsule take two capsule by mouth daily at 10:00 PM 180 capsule 0 zonisamide (ZONEGRAN) 100 mg capsule take one capsule by mouth daily at 6:00 AM 90 capsule 0 No current facility-administered medications for this visit. REVIEW OF SYSTEMS Review of Systems Constitutional: Negative. HENT: Negative. Eyes: Negative. Respiratory: Positive for shortness of breath. Cardiovascular: Negative. Ankle swelling Gastrointestinal: Negative. Endocrine: Negative. Genitourinary: Negative. Musculoskeletal: Negative. Skin: Negative. Allergic/Immunologic: Negative. Neurological: Negative. Hematological: Negative. Psychiatric/Behavioral: Negative. All other systems reviewed and are negative. Vitals: BP 111/70 (BP Site: Left Arm, BP Position: Sitting, BP Cuff Size: Regular Adult) Pulse 104 Temp 36.4 ?C (97.6 ?F) (Right Tympanic) Resp 16 Wt 85.3 kg (188 lb 0.8 oz) SpO2 100% Physical Exam: Physical Exam Vitals reviewed. Constitutional: General (more content not included)... Normal [facility]ANE Ghassan 09-20-2024 Albumin [Mass/Vol] 3.5 g/dL Normal 3.5-5.0 [facility] Comment on above: Performed By: #### L AB17, [id number] ####Pay Station Collector: MARY VALLE ([phone])[facility] (SWRLAB)[address] [place] [address] ALP [Catalytic activity/Vol] 81 U/L Normal 40-150 [facility] Comment on above: Performed By: #### L AB17, [id number] ####Pay Station Collector: MARY VALLE ([phone])[facility] (SWRLAB)[address] ALT [Catalytic activity/Vol] 18 U/L Normal <30 [facility] Comment on above: Performed By: #### L AB17, [id number] ####Pay Station Collector: MARY VALLE ([phone])[facility] (SWRLAB)[address] Anion gap [Moles/Vol] 6 mmol/L Normal 3-13 [facility] Comment on above: Performed By: #### L AB17, [id number] ####Pay Station Collector: MARY VALLE ([phone])[facility] (SWRLAB)[address] AST [Catalytic activity/Vol] 29 U/L Normal <34 [facility] Comment on above: Performed By: #### L AB17, [id number] ####Pay Station Collector: MARY VALLE ([phone])[facility] (SWRLAB)[address] [place] [address] [place] Bilirubin [Mass/Vol] 0.3 mg/dL Normal <1.2 [facility] Comment on above: Performed By: #### L AB17, [id number] ####Pay Station Collector: MARY VALLE ([phone])[facility] (SWRLAB)[address] Calcium [Mass/Vol] 9.3 mg/dL Normal 8.4-10.2 [facility] Comment on above: Performed By: #### L AB17, [id number] ####Pay Station Collector: MARY VALLE ([phone])[facility] (SWRLAB)[address] [place] [address] [place] Chloride [Moles/Vol] 112 mmol/L High 98-107 [facility] Comment on above: Performed By: #### L AB17, [id number] ####Pay Station Collector: MARY VALLE ([phone])[facility]AGYJABARI [facility]TMAN (SWRLAB)[address] [place] [address] [place] CO2 [Moles/Vol] 22 mmol/L Normal 22-29 [facility] Comment on above: Performed By: #### L AB17, [id number] ####Pay Station Collector: MARY VALLE ([phone])[facility] (SWRLAB)[address] [place] [address] [place] Creatinine [Mass/Vol] 0.77 mg/dL Normal 0.57-1.[address] [facility] Comment on above: Performed By: #### L AB17, [id number] ####Pay Station Collector: MARY VALLE ([phone])[facility] (SWRLAB)[address] [place] [address] [place] GLOMERULAR FILTRATION RATE ML/MIN/1.73 SQ M.PREDICTED >90.0 Normal >60.0 [facility] Comment on above: Result Comment: Calc ulation based on the Chronic Kidney Disease Epidemiology Collaboration (CKD-EPI) equation refit without adjustment for race Performed By: #### L AB17, [id number] ####Pay Station Collector: MARY VALLE ([phone])[facility] (SWRLAB)[address] [place] [address] [place] Glucose [Mass/Vol] 116 mg/dL High 74-100 [facility] Comment on above: Performed By: #### L AB17, [id number] ####Pay Station Collector: MARY VALLE ([phone])[facility] (SWRLAB)[address] [place] [address] [place] Potassium [Moles/Vol] 4.1 mmol/L Normal 3.5-5.[address] [facility] Comment on above: Result Comment: [facility] potassium values may be up to 0.5 mmol/L lower than serum values. Performed By: #### L AB17, [id number] ####Pay Station Collector: MARY VALLE ([phone])[facility] (SWRLAB)[address] [place] [address] [place] Protein [Mass/Vol] 7.2 g/dL Normal 6.4-8.3 [facility] Comment on above: Performed By: #### L AB17, [id number] ####Pay Station Collector: MARY VALLE ([phone])[facility] (SWRLAB)[address] [place] [address] [place] Sodium [Moles/Vol] 140 mmol/L Normal 136-145 [facility] Comment on above: Performed By: #### L AB17, [id number] ####Pay Station Collector: MARY VALLE ([phone])[facility] (SWRLAB)[address] [place] [address] [place] Urea nitrogen [Mass/Vol] 12 mg/dL Normal 9-23 [facility] Comment on above: Performed By: #### L AB17, [id number] ####Pay Station Collector: MARY VALLE ([phone])[facility] ([facility])[address] [place] [address] Comprehensive metabolic 1998 panelon 09-20-2024 Albumin [Mass/Vol] 3.5 g/dL 3.5 - 5.0 g/dL [facility] ALP [Catalytic activity/Vol] 81 U/L 40 - 150 U/L [facility] ALT [Catalytic activity/Vol] 18 U/L NINF - 30 U/L [facility] Anion gap [Moles/Vol] 6 mmol/L 3 - 13 mmol/L [facility] AST [Catalytic activity/Vol] 29 U[facility]L [facility] U/L [facility] Bilirubin [Mass/Vol] 0.3 mg/dL NINF - 1.2 mg/dL [facility] Calcium [Mass/Vol] 9.3 mg/dL 8.4 - 10. 2 mg/dL [facility] Chloride [Moles/Vol] 112 mmol/L High 98 - 10 7 mmol/L [facility] CO2 [Moles/Vol] 22 mmol/L 22 - 29 mmol/L [facility] Creatinine [Mass/Vol] 0.77 mg/dL 0.57 - 1.11 mg/dL [facility] GFR/1.73 sq M.predicted (S/P/Bld) [Vol rate/Area] - PINF [facility] Comment on above: Calculation based on the Chronic Kidney Disease Epidemiology Collaboration (CKD-EPI) equation refit without adjustment for race Glucose [Mass/Vol] 116 mg/dL High 74 - 100 mg/dL [facility] Interpretation and review of laboratory results Abnormal [facility] Potassium [Moles/Vol] 4.1 mmol/L 3.5 - 5.1 mmol/L [facility] Comment on above: Plasma potassium fer ues may be up to 0.5 mmol/L lower than serum values. Protein [Mass/Vol] 7.2 g/dL 6.4 - 8.3 g/dL [facility] Sodium [Moles/Vol] 140 mmol/L 136 - 145 mmol/L [facility] Urea nitrogen [Mass/Vol] 12 mg/dL 9 - 23 mg/dL [facility] D-DIMER,QUANTITATIVEon 09-20 D-DIMER, INNOVANCE 0.42 mg/L Normal <0.50 [facility] Comment on above: Result Comment: SUSIE Lopez COMMENTS: [employer] D-Dimer values of <0.50 mg/L FEU can be used in combination with a pre-test probability model (e.g. Well's) to exclude pulmonary embolism (PE) disease, as well as an aid in the diagnosis of deep vein thrombosis (DVT). Performed By: #### L [id number] ####Pay Station Collector: MARY VALLE ([phone])[facility] ([facility])[address] [place] [address] ECG 12-LEADon 09-20-2024 ECG 12-LEAD IMPRESSION: Sinus rhythm Borderline short OK interval Borderline prolonged QT interval Electronically Signed On 09-20-2024 17:24:04 EDT by Abhinav Gonzalez [facility] ED Nursing Noteon 09-20-2024 ED Nursing Note Pt states she is out of her Lisinopril prescription. Asking if we can call it in for her. Dr. Gonzalez notified and will e-scribe it to her pharmacy Normal [facility] ED Nursing Note Pt to ER with compla int of lower leg and foot swelling and shortness of breath on exertion. States she was at her family doctor 3 days ago by [employer] and states they didn't seem too concerned. Pt went to urgent care today and was told to go to ER. + edema to feet, ankles and lower legs. Pt states she gets out of breath when walking. Denies any cough, chest pain, fever, chills, nausea, vomiting, diarrhea. Pt ambulatory on arrival. Alert and oriented x 4. Skin warm and dry. Respirations even and unlabored. Speaks in full sentences. Room air pulse ox 100%. Call light in reach. Pt changed into hospital gown. [facility] ED Provider Noteon ED Provider Note EMERGENCY DEPARTMENT ENCOUNTER Pt Name: Felton Pa Birthdate 1970 Date of evaluation: 09/20/2024 CHIEF COMPLAINT No chief complaint on file. HISTORY OF PRESENT ILLNESS HPI Felton Pa is a 54 y.o. female who presents to the emergency department with leg swelling and shortness of breath, having some pain in gardner. REVIEW OF SYSTEMS Review of Systems Patient Active Problem List Diagnosis Seizure disorder (CMS/HCC) (HCC) Hypertension Coronary artery disease 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 angina pectoris Anxiety Alcohol use, unspecified with withdrawal, unspecified (HCC) Greater trochanteric bursitis Bleeding hemorrhoids Chronic back pain Hypomagnesemia Migraine without aura and responsive to treatment Mixed anxiety depressive disorder Steatosis of liver Tobacco dependence Alcohol dependence (HCC) Chronic alcohol use Abnormal mammogram Alcohol withdrawal syndrome with complication (HCC) Muscle pain Low back pain, unspecified Alcohol withdrawal seizure (HCC) Pain in joint involving pelvic region and thigh Other acidosis Alcohol abuse with withdrawal delirium (HCC) Tobacco use Thrombocytopenia (HCC) Encounter for screening for malignant neoplasm of colon Other specified disorders of breast Other disorders of bilirubin metabolism Nausea with vomiting, unspecified Major depressive disorder, single episode, unspecified Hypokalemia Generalized abdominal pain Fever, unspecified Decreased white blood cell count, unspecified Cannabis abuse, uncomplicated Severe alcohol use disorder (HCC) Acute lymphadenitis, unspecified Acute bronchitis, unspecified Transaminitis CURRENT MEDICATIONS Previous Medications ESCITALOPRAM (LEXAPRO) 20 MG TABLET Take 1 tablet (20 mg) by mouth daily. FLURBIPROFEN (ANSAID) 100 MG TABLET Take 100 mg by mouth 3 times daily as needed. LISINOPRIL 5 MG TABLET Take by mouth daily. MIRTAZAPINE (REMERON) 15 MG TABLET Take 15 mg by mouth Nightly. NALTREXONE ER (VIVITROL) INJECTION Inject 4 mL (380 mg) into the buttocks every 28 (twenty-eight) days. Do not start before September 13, 2024. SPIRONOLACTONE (ALDACTONE) 25 MG TABLET Take 3 tablets (75 mg) by mouth daily. ZONISAMIDE (ZONEGRAN) 100 MG CAPSULE Take 100 mg by mouth. 1 in morning and 2 at night ALLERGIES Bupropion, Oxcarbazepine, and Penicillins SOCIAL HISTORY Social History Tobacco Use Smoking status: Every Day Current packs/day: 0.75 Average packs/day: 0.8 packs/day for 31.3 years (23.5 ttl pk-yrs) Types: Cigarettes Start date: 1993 Smokeless tobacco: Never Vaping Use Vaping status: Never Used Substance Use Topics Alcohol use: Not Currently Alcohol/week: 6.0 standard drinks of alcohol Types: 4 Cans of beer, 2 Shots of liquor per week Comment: occasional Drug use: Not Currently Types: Marijuana Comment: rare PHYSICAL EXAM Vitals: 09/20/24 1107 BP: 119/73 BP Location: Right arm Patient Position: Sitting Pulse: 85 Resp: 16 Temp: 36.6 ?C (97.8 ?F) TempSrc: Temporal SpO2: 100% Weight: 84.4 kg (186 lb) Height: 1.6 m (5' 3) Physical Exam Vitals and nursing note reviewed. Constitutional: Appearance: She is not toxic-appearing. Cardiovascular: Rate and Rhythm: Normal rate and regular rhythm. Pulses: Dorsalis pedis pulses are 2+ on the right side and 2+ on the left side. Posterior tibial pulses are 2+ on the right side and 2+ on the left side. Heart sounds: Normal heart sounds. Pulmonary: Effort: Pulmonary effort is normal. Breath sounds: Normal breath sounds. Musculoskeletal: Right ankle: Swelling present. Left ankle: Swelling present. Right foot: Swelling present. Left foot: Swelling present. Skin: General: Skin is warm. Coloration: Skin is not jaundiced. Neurological: Mental Status: She is alert. Sensory: Sensation is intact. Motor: Motor function is intact. Gait: Gait is intact. Deep Tendon Reflexes: Reflexes are normal and symmetric. Psychiatric: Behavior: Behavior normal. Thought Content: Thought content normal. SCREENINGS Medical decision making DIAGNOSTIC RESULTS Procedures/EKG: Physician EKG interpretation can be found in [facility] if done Radiologist results reviewed: XR chest 2 views Final Result No acute cardiopulmonary disease. Report Dictated on Electronically Signed By: Marco A Moralez MD Electronically Signed Date/Time: 09/20/2024 12:08 PM EDT LABS: Labs Reviewed CBC WITH AUTO DIFFERENTIAL - Abnormal Result Value Auto WBC 5.7 RBC 3.09 (*) Hemoglobin 9.8 (*) Hematocrit 30.2 (*) MCV 97.7 MCH 31.7 MCHC 32.5 RDW 14.6 Platelets 162 MPV 9.2 nRBC 0.0 Neutrophils Relative 62.0 Lymphocytes Relative 22.3 Monocytes Relative 11.6 Eosinophils Relative 3.0 Basophils Relative 0.7 Immature Grans % 0.4 Neutrophils Absolute 3.5 Lymphocytes Absolute 1.3 Monocytes (more content not included)... Normal [facility] Fibrin D-dimer FEU (PPP) [Ma ss/Vol]on 09-20-2024 Interpretation and review of laboratory results Normal [facility] D-Dimer va lues of <0.50 mg/L FEU can be used in combination with a pre-test probability model (e.g. Well's) to exclude pulmonary embolism (PE) disease, as well as an aid in the diagnosis of deep vein thrombosis (DVT). [facility] - Coagulationon 0 09-20-2024 Fibrin D-dimer FEU (PPP) [Mass/Vol] 0.42 mg/L NINF - 0.50 mg/L [facility] NT PRO BNPon 09-20-2024 Natriuretic peptide B (Bld) [Mass/Vol] 43 pg/mL Normal <125 [facility] Comment on above: Performed By: #### L [id number], [id number] ####Pay Station Collector: MARY VALLE ([id number])[id number] Natriuretic peptide B [Mass/ Vol]on 09-20-2024 Interpretation and review of laboratory results Normal [facility] Natriuretic peptide B (Bld) [Mass/Vol] 43 pg/mL NINF - 125 pg/mL [facility] No Panel Informationon 09-20 P [place] 46 degrees [facility] OK Interval 116 ms [facility] QRS [place] 23 degrees [facility] QRSD Interval 86 ms [facility] QT Interval 387 ms [facility] QTC Interval 493 ms [facility] T Wave [place] 31 degrees [facility] Sinus rhythm Borderline short OK interval Borderline prolonged QT interval Electronically Signed On 09-20-2024 17:24:04 EDT by Abhinav Gonzalez CV Abhinav Nur MD - 09/20/2024 IMPRESSION: Sinus rhythm Borderline short OK interval Borderline prolonged QT interval Electronically Signed On 09-20-2024 17:24:04 EDT by Abhinav Gonzalez [facility] Vital signson 09-20-2024 Heart rate 97 /min bpm [facility] XR Chest 2 Viewson No acute cardiopulmonary disease. Report Dictated on Electronically Signed By: Marco A Moralez MD Electronically Signed Date/Time: 09/20/2024 12:08 PM EDT [facility] Patient Name: FELTON ACHARYA : 1970 Exam Date/Time: 09/20/2024 12:00 Procedure: XR CHEST 2 VIEWS Ordering Provider: GONZALEZ NISHIT Reason For Exam: sob CHEST X-RAY PA/LATERAL CLINICAL INDICATION: Shortness of breath Frontal and lateral plain films of the chest were obtained. COMPARISON: None FINDINGS: The cardiac silhouette is within normal limits. No focal consolidation is seen within the lungs. No pleural effusion or pneumothorax is identified. The bony structures of the chest are unremarkable as visualized for the patient's age. [facility] Marco A Moralez MD - 09/20/2024 Patient Name: FELTON PA : 1970 Exam Date/Time: 09/20/2024 12:00 Procedure: XR CHEST 2 VIEWS Ordering Provider: GONZALEZ NISHIT Reason For Exam: sob CHEST X-RAY PA/LATERAL CLINICAL INDICATION: Shortness of breath Frontal and lateral plain films of the chest were obtained. COMPARISON: None FINDINGS: The cardiac silhouette is within normal limits. No focal consolidation is seen within the lungs. No pleural effusion or pneumothorax is identified. The bony structures of the chest are unremarkable as visualized for the patient's age. IMPRESSION: No acute cardiopulmonary disease. Report Dictated on Electronically Signed By: Marco A Moralez MD Electronically Signed Date/Time: 09/20/2024 12:08 PM EDT [facility] Radiology Study observation (narrative) [facility] XR Chest 2 ViewsOrdered By: Marco A Moralez on 09-20-2024 [facility] Absolute lymphocyte countOrd ered By: Callie Nichols on 09-17-2024 Lymphocytes Auto (Unsp spec) [#/Vol] 1.61 10*3/uL 0.83-4.51 [facility] Absolute neutrophil countOrd ered By: Callie Nichols on 09-17-2024 Neutrophils (Bld) [#/Vol] 3.2 10*3/uL 2.0-7.7 [facility] Anion gap in Serum or Plasma Ordered By: Callie Nichols on 09-17-2024 Anion gap [Moles/Vol] 13 mmol/L 5-15 [facility] Automated lymphocyte count a s percentage of total leukocytesOrdered By: Callie Nichols on 09-17-2024 Lymphocytes/100 WBC Auto (Unsp spec) 28.1 % 19- [facility] BUN/creatinine ratioOrdered By: [facility] on 09-17-2024 Urea nitrogen/Creatinine [Mass ratio] 11.7 mg/mg 10- [facility] Basophil percentageOrdered B y: Callie Nichols on 09-17-2024 Basophils/100 WBC (Bld) 0.7 % 0-1 [facility] Bilirubin, totalOrdered By: Callie Nichols on 09-17-2024 Bilirubin [Mass/Vol] 0.35 mg/dL 0.00-1.30 [facility] CBC W/Diff, Automatedon 09-07 Absolute Lymph 1.61 X10 3/uL Normal 0.83-4.51 [facility] Comment on above: Performed By: #### L 500.4050, L501.5200, L100.0100 ####[facility] [address] [place], [address] Absolute Neut 3.2 X10 3/uL Normal 2.0-7.7 [facility] Comment on above: Performed By: #### L 500.4050, L501.5200, L100.0100 ####[facility] [address] [place], [address] Basophils/100 WBC (Bld) 0.7 % Normal 0-1 [facility] Comment on above: Performed By: #### L 500.4050, L501.5200, L100.0100 ####[facility] [address] [place], [address] Eosinophils/100 WBC (Bld) 3.0 % Normal 0-5 [facility] Comment on above: Performed By: #### L 500.4050, L501.5200, L100.0100 ####[facility] [address] [place], [address] Erythrocyte distribution width (RBC) [Ratio] 14.6 % Normal 11.6-14.6 [facility] Comment on above: Performed By: #### L 500.4050, L501.5200, L100.0100 ####[facility] [address] [place], [address] Hematocrit (Bld) [Volume fraction] 31.9 % Low 37-47 [facility] Comment on above: Performed By: #### L 500.4050, L501.5200, L100.0100 ####[facility] [address] [place], [address] Hemoglobin (Bld) [Mass/Vol] 10.0 g/dL Low 12.0-15.0 [facility] Comment on above: Performed By: #### L 500.4050, L501.5200, L100.0100 ####[facility] [address] [place], [address] IG% 0.500 Normal 0.0-0.9 [facility] Comment on above: Result Comment: IG% - Immature Granulocytes (promyelocytes, myelocytes andmetamyelocytes) > 1% indicates that a LEFT SHIFT is Present. Performed By: #### L 500.4050, L501.5200, L100.0100 ####[facility] [address] [place], [address] Lymphocytes/100 WBC (Bld) 28.1 % Normal 19-41 [facility] Comment on above: Performed By: #### L 500.4050, L501.5200, L100.0100 ####[facility] [address] [place], [address] MCH (RBC) [Entitic mass] 31.2 pg Normal 27.0-32.0 [facility] Comment on above: Performed By: #### L 500.4050, L501.5200, L100.0100 ####[facility] [address] [place], [address] MCHC (RBC) [Mass/Vol] 31.3 g/dL Low 32-36 [facility] Comment on above: Performed By: #### L 500.4050, L501.5200, L100.0100 ####[facility] [address] [place], [address] MCV (RBC) [Entitic vol] 99.4 fL High 81-99 [facility] Comment on above: Performed By: #### L 500.4050, L501.5200, L100.0100 ####[facility] [address] [place], [address] Monocytes/100 WBC (Bld) 11.7 % High 0-10 [facility] Comment on above: Performed By: #### L 500.4050, L501.5200, L100.0100 ####[facility] [address] [place], [address] Neutrophils/100 WBC (Bld) 56.0 % Normal 47-70 [facility] Comment on above: Performed By: #### L 500.4050, L501.5200, L100.0100 ####[facility] [address] [place], [address] Nucleated RBC (Bld) [#/Vol] 0 10*3/uL Normal 0-5 [facility] Comment on above: Performed By: #### L 500.4050, L501.5200, L100.0100 ####[facility] [address] [place], [address] Platelet mean volume (Bld) [Entitic vol] 9.6 fL Normal 6.2-12.0 [facility] Comment on above: Performed By: #### L 500.4050, L501.5200, L100.0100 ####[facility] [address] [place], [address] Platelets (Bld) [#/Vol] 188 10*3/uL Normal 150-450 [facility] Comment on above: Performed By: #### L 500.4050, L501.5200, L100.0100 ####[facility] [address] [place], [address] RBC (Bld) [#/Vol] 3.21 10*6/uL Low 4.2-5.4 [facility] Comment on above: Performed By: #### L 500.4050, L501.5200, L100.0100 ####[facility] [address] [place], [address] RDW SD 53.1 fl High 35.1-43.9 [facility] Comment on above: Performed By: #### L 500.4050, L501.5200, L100.0100 ####[facility] [address] [place], [address] WBC (Bld) [#/Vol] 5.7 10*3/uL Normal 4.4-11.0 [facility] Comment on above: Performed By: #### L 500.4050, L501.5200, L100.0100 ####[facility] [address] [place], [address] CBC-Complete Blood Cnt No Di ffon 09-17-2024 HCT Normal 37-47 [facility] Comment on above: Result Comment: DUPL ICATE Performed By: #### L 100.0500, L503.0106 ####[facility] [address] [place], [address] HGB Normal 12.0-15.0 [facility] Comment on above: Result Comment: DUPL ICATE Performed By: #### L 100.0500, L503.0106 ####[facility] [address] [place], [address] MCH Normal 27.0-32.0 [facility] Comment on above: Result Comment: DUPL ICATE Performed By: #### L 100.0500, L503.0106 ####[facility] [address] [place], [address] MCHC Normal 32-36 [facility] Comment on above: Result Comment: DUPL ICATE Performed By: #### L 100.0500, L503.0106 ####[facility] [address] [place], [address] MCV Normal 81-99 [facility] Comment on above: Result Comment: DUPL ICATE Performed By: #### L 100.0500, L503.0106 ####[facility] [address] [place], [address] PLT Normal 150-450 [facility] Comment on above: Result Comment: DUPL ICATE Performed By: #### L 100.0500, L503.0106 ####[facility] [address] [place], [address] RBC Normal 4.2-5.4 [facility] Comment on above: Result Comment: DUPL ICATE Performed By: #### L 100.0500, L503.0106 ####[facility] [address] [place], [address] RDW CV Normal 11.6-14.6 [facility] Comment on above: Result Comment: DUPL ICATE Performed By: #### L 100.0500, L503.0106 ####[facility] [address] [place], [address] RDW SD Normal 35.1-43.9 [facility] Comment on above: Result Comment: DUPL ICATE Performed By: #### L 100.0500, L503.0106 ####[facility] [address] [place], [address] WBC Normal 4.4-11.0 [facility] Comment on above: Result Comment: DUPL ICATE Performed By: #### L 100.0500, L503.0106 ####[facility] [address] [place], [address] Carbon dioxide, total [Moles /volume] in Central venous bloodOrdered By: Callie Nichols on 09-17-2024 CO2 [Moles/Vol] 21.3 mmol/L 21.0-32.0 [facility] Chloride assayOrdered By: Eliana Nichols on 09-17-2024 Chloride [Moles/Vol] 105 mmol/L 98-108 [facility] Comprehensive Metabolic Prof ilon 09-17-2024 Albumin [Mass/Vol] 4.0 g/dL Normal 3.5-5.0 [facility] Comment on above: Performed By: #### L 500.4050, L501.5200, L100.0100 ####[facility] [address] [place], [address] Albumin/Globulin [Mass ratio] 1.2 {ratio} Normal 0.9-2.4 [facility] Comment on above: Performed By: #### L 500.4050, L501.5200, L100.0100 ####[facility] [address] [place], [address] ALK PHOS 87 U/L Normal 35-104 [facility] Comment on above: Performed By: #### L 500.4050, L501.5200, L100.0100 ####[facility] [address] [place], [address] ALT [Catalytic activity/Vol] 18 U/L Normal <=34 [facility] Comment on above: Performed By: #### L 500.4050, L501.5200, L100.0100 ####[facility] [address] [place], [address] AST [Catalytic activity/Vol] 25 U/L Normal <=31 [facility] Comment on above: Performed By: #### L 500.4050, L501.5200, L100.0100 ####[facility] [address] [place], [address] Bilirubin [Mass/Vol] 0.35 mg/dL Normal 0.00-1.30 [facility] Comment on above: Performed By: #### L 500.4050, L501.5200, L100.0100 ####[facility] [address] [place], [address] BUN/CRE 11.7 RATIO Normal 10-20 [facility] Comment on above: Performed By: #### L 500.4050, L501.5200, L100.0100 ####[facility] [address] [place], [address] Calcium [Mass/Vol] 9.7 mg/dL Normal 7.6-11.0 [facility] Comment on above: Performed By: #### L 500.4050, L501.5200, L100.0100 ####[facility] [address] [place], [address] Chloride [Moles/Vol] 105 mmol/L Normal 98-108 [facility] Comment on above: Performed By: #### L 500.4050, L501.5200, L100.0100 ####[facility] [address] [place], [address] CO2 [Moles/Vol] 21.3 mmol/L Normal 21.0-32.0 [facility] Comment on above: Performed By: #### L 500.4050, L501.5200, L100.0100 ####[facility] [address] [place], [address] Creatinine [Mass/Vol] 1.08 mg/dL Normal 0.70-1.20 [facility] Comment on above: Performed By: #### L 500.4050, L501.5200, L100.0100 ####[facility] [address] [place], [address] GAP 13 Normal 5-15 [facility] Comment on above: Performed By: #### L 500.4050, L501.5200, L100.0100 ####[facility] [address] [place], [address] GFR/1.73 sq M.predicted among non-blacks MDRD (S/P/Bld) [Vol rate/Area] 61 mL/min/{1.73_m2} Normal >60 [facility] Comment on above: Result Comment: mL/m in/1.73m2 CKD-EPI Creatinine Equation (2020) Performed By: #### L 500.4050, L501.5200, L100.0100 ####[facility] [address] [place], [address] Globulin (S) [Mass/Vol] 3.4 g/dL Normal 2.2-4.2 [facility] Comment on above: Performed By: #### L 500.4050, L501.5200, L100.0100 ####[facility] [address] [place], [address] Glucose [Mass/Vol] 98 mg/dL Normal 70-99 [facility] Comment on above: Performed By: #### L 500.4050, L501.5200, L100.0100 ####[facility] [address] [place], [address] Potassium [Moles/Vol] 4.0 mmol/L Normal 3.3-5.1 [facility] Comment on above: Performed By: #### L 500.4050, L501.5200, L100.0100 ####[facility] [address] [place], [address] Sodium [Moles/Vol] 139 mmol/L Normal 133-145 [facility] Comment on above: Performed By: #### L 500.4050, L501.5200, L100.0100 ####[facility] [address] [place], [address] T PROT 7.4 g/dL Normal 5.9-8.4 [facility] Comment on above: Performed By: #### L 500.4050, L501.5200, L100.0100 ####[facility] [address] [place], [address] Urea nitrogen [Mass/Vol] 13 mg/dL Normal 4-19 [facility] Comment on above: Performed By: #### L 500.4050, L501.5200, L100.0100 ####[facility] [address] [place], [address] Eosinophil percentageOrdered By: Callie Nichols on 09-17-2024 Eosinophils/100 WBC (Bld) 3.0 % 0-5 [facility] Erythrocyte distribution wid th (RBC) [Ratio]Ordered By: Callie Nichols on 09-17-2024 Erythrocyte distribution width (RBC) [Entitic vol] 53.1 fL High 35.1-43.9 [facility] Erythrocyte distribution wid th ratioOrdered By: Callie Nichols on 09-17-2024 Erythrocyte distribution width (RBC) [Ratio] 14.6 % 11.6-14.6 [facility] Erythrocyte distribution wid th standard deviationOrdered By: Callie Nichols on 09-17-2024 Erythrocyte distribution width (RBC) [Ratio] 53.1 fl High 35.1-43.9 [facility] GFR/1.73 sq M.predicted florencia g non-blacks MDRD (S/P/Bld) [Vol rate/Area]Ordered By: Callie Nichols on 09-17-2024 Estimated GFR (MDRD) Non-Af Amer 61 >60 [facility] Comment on above: mL/min/1.73m2 CKD-EP I Creatinine Equation (2020) Glomerular filtration rate ( GFR) estimation/1.73 sq m using serum, plasma, or whole bOrdered By: Callie Nichols on 09-17-2024 GFR/1.73 sq M.predicted among non-blacks MDRD (S/P/Bld) [Vol rate/Area] 61 mL/min/{1.73_m2} >60 [facility] Comment on above: mL/min/1.73m2 CKD-EP I Creatinine Equation (2020) Hematocrit Auto (Bld) [Volum e fraction]Ordered By: Callie Nichols on 09-17-2024 Hematocrit (Bld) [Volume fraction] 31.9 % Low 37-47 [facility] Hemoglobin measurementOrdere d By: Callie Nichols on 09-17-2024 Hemoglobin (Bld) [Mass/Vol] 10.0 g/dL Low 12.0-15.0 [facility] Immature granulocytes/100 WB C Auto (Bld)Ordered By: Callie Nichols on 09-17-2024 Immature granulocytes/100 WBC (Bld) 0.500 % 0.0-0.9 [facility] Comment on above: IG% - Immature Granu locytes (promyelocytes, myelocytes and metamyelocytes) > 1% indicates that a LEFT SHIFT is Present. Internal Medicine Office Vis maxim 09-17-2024 Internal Medicine Office Visit Normal [facility] Laboratory - Chemistry and C hemistry - challengeOrdered By: Callie Nichols on 09-17-2024 AST [Catalytic activity/Vol] 25 U/L <32 [facility] Lymphocytes Auto (Unsp spec) [#/Vol]Ordered By: Elianamarianajose Maycoerin on 09-17-2024 Lymphocytes (Bld) [#/Vol] 1.61 10*3/uL 0.83-4.51 [facility] Lymphocytes/100 WBC Auto (Un sp spec)Ordered By: Elianajasonelinor Maocarmenzaescobar on 09-17-2024 Lymphocytes/100 WBC (Bld) 28.1 % 19-41 [facility] MCV (mean corpuscular volume ) determinationOrdered By: Callie Nichols on 09-17-2024 MCV (RBC) [Entitic vol] 99.4 fL High 81-99 [facility] Magnesiumon 09-17-2024 Magnesium [Mass/Vol] 1.6 mg/dL Normal 1.5-2.2 [facility] Comment on above: Performed By: #### L 500.4050, L501.5200, L100.0100 ####[facility] [address] [place], [address] Magnesium (Unsp spec) [Mass/ Vol]Ordered By: Callie Nichols on 09-17-2024 Magnesium [Mass/Vol] 1.6 mg/dL 1.5-2.2 [facility] Magnesium measurement (mass/ volume)Ordered By: Callie Nichols on 09-17-2024 Magnesium (Unsp spec) [Mass/Vol] 1.6 mg/dL 1.5-2.2 [facility] Mean corpuscular hemoglobin (MCH) determinationOrdered By: Callie Nichols on 09-17-2024 MCH (RBC) [Entitic mass] 31.2 pg 27.0-32.0 [facility] Mean corpuscular hemoglobin concentration (MCHC) determinationOrdered By: Callie Maocarmenzae on 09-17-2024 MCHC (RBC) [Mass/Vol] 31.3 g/dL Low 32-36 [facility] Mean platelet volume determi nationOrdered By: Callie Maocarmenzaescobar on 09-17-2024 Platelet mean volume (Bld) [Entitic vol] 9.6 fL 6.2-12.0 [facility] Monocyte percentageOrdered B y: Callie Nichols on 09-17-2024 Monocytes/100 WBC (Bld) 11.7 % High 0-10 [facility] Neutrophil percentageOrdered By: Callie Nichols on 09-17-2024 Neutrophils/100 WBC (Bld) 56.0 % 47-70 [facility] No Panel InformationOrdered By: Elianajasonelinor Maycocarmenzaescobar on 09-17-2024 25 U/L <32 [facility] Nucleated red blood cell per centageOrdered By: Callie Maycoerin on 09-17-2024 Nucleated RBC/100 WBC (Bld) [Ratio] 0 % 0-5 [facility] Platelet countOrdered By: Eliana teresa Nichols on 09-17-2024 Platelets (Bld) [#/Vol] 188 10*3/uL 150-450 [facility] Potassium (Unsp spec) [Mass/ Vol]Ordered By: Elianajasonelinor Maycocarmenzaescobar on 09-17-2024 Potassium [Moles/Vol] 4.0 mmol/L 3.3-5.1 [facility] Potassium measurement (mass/ volume)Ordered By: Elianateresa Maocarmenzaescobar on 09-17-2024 Potassium (Unsp spec) [Mass/Vol] 4.0 mmol/L 3.3-5.1 [facility] RBC Auto (Bld) [#/Vol]Ordere d By: Callie Nichols on 09-17-2024 RBC (Bld) [#/Vol] 3.21 10*6/uL Low 4.2-5.4 [facility] Serum creatinine measurement (mass/volume)Ordered By: Elianajasonhayleyjose Maocarmenzaescobar on 09-17-2024 Creatinine [Mass/Vol] 1.08 mg/dL 0.70-1.20 [facility] Serum globulin measurementOr dered By: Elianajasonhayleyjose Maocarmenzaescobar on 09-17-2024 Globulin (S) [Mass/Vol] 3.4 g/dL 2.2-4.2 [facility] Serum glucose measurement (m ass/volume)Ordered By: Elianajasonhayleyjose Maocarmenzaescobar on 09-17-2024 Glucose [Mass/Vol] 98 mg/dL 70-99 [facility] Serum or plasma alanine boyce otransferase (ALT) measurementOrdered By: Elianateresa Maocarmenzaescobar on 09-17-2024 ALT [Catalytic activity/Vol] 18 U/L <35 [facility] Serum or plasma albumin ferdinand urement (mass/volume)Ordered By: Callie Maocarmenzaescobar on 09-17-2024 Albumin [Mass/Vol] 4.0 g/dL 3.5-5.0 [facility] Serum or plasma albumin/glob ulin mass ratioOrdered By: [facility] Moaescobar on 09-17-2024 Albumin/Globulin [Mass ratio] 1.2 {ratio} 0.9-2.4 [facility] Serum or plasma alkaline garry sphatase measurementOrdered By: Elianateresa Maocarmenzaescobar on 09-17-2024 ALP [Catalytic activity/Vol] 87 U/L 35-104 [facility] Serum or plasma calcium ferdinand urement (mass/volume)Ordered By: Elianateresa Maocarmenzaescobar on 09-17-2024 Calcium [Mass/Vol] 9.7 mg/dL 7.6-11.0 [facility] Serum or plasma urea nitroge n measurement (mass/volume)Ordered By: Elianajasonhayleyjose Maocarmenzaescobar on 09-17-2024 Urea nitrogen [Mass/Vol] 13 mg/dL 4-19 [facility] Sodium levelOrdered By: Bailey lukedario Magdalena on 09-17-2024 Sodium [Moles/Vol] 139 mmol/L 133-145 [facility] Total proteinOrdered By: Noel lamjose Maocarmenzaescobar on 09-17-2024 Protein [Mass/Vol] 7.4 g/dL 5.9-8.4 [facility] Vitamin B12on 09-17-2024 Cobalamin (Vitamin B12) [Mass/Vol] 582 pg/mL Normal 180-914 [facility] Comment on above: Performed By: #### L 100.0500, L503.0106 ####[facility] [address] [place], [address] Vitamin B12 ser/plasOrdered By: Hugo Wayt on 09-17-2024 Cobalamin (Vitamin B12) [Mass/Vol] 582 pg/mL 180-914 [facility] White blood cell (WBC) count Ordered By: Callie Nichols on 09-17-2024 WBC (Bld) [#/Vol] 5.7 10*3/uL 4.4-11.0 [facility] 36on 09-10-2024 36 Not a patient at our office. [facility] 36 Not our patient-plea se refuse [facility] [id number] 08-17-2024 [id number] METAL DIE FINISHER saw patient to discuss aftercare plans and treatment post discharge. Patient was reminded about appointments. Patient has pending intake with [facility] treatment program today. Patient arranged transportation to have staff from agency come to pick her up from the unit. Patient denied current SI/HI/AVH. Research Associate Molecular Biology from [facility] will come to hospital to greens picker patient from the unit. Patient denied needing anything further from [facility] at the time. METAL DIE FINISHER informed patient's nurse about conversation. [facility] [phone] METAL DIE FINISHER received phone call from [facility]. Reports that transportation is on their way to greens picker patient. METAL DIE FINISHER explained that medical team was not made aware of patient's admission to treatment as it was still pending medical review at end of day on 08/16/2024. MARY also explained that there is no current discharge order in for patient and that she is not able to be picked up immediately. Intake staff from [facility] will be calling their powder truck driver in order to identify an estimated time of arrival. MARY sent message to Dr. Bacon to let them know about update of patient's plan. METAL DIE FINISHER continue to follow as necessary. [facility] Nursing Noteon 08-17-2024 Nursing Note Home going instructi ons given to the patient. She voiced a clear understanding of the information. Relapse prevention discussed with the patient. She voiced understanding the risk of resuming use. She was given a little red big book to help with getting informations for AA meetings once out of treatment. She was provided the SDOR papers from the [facility]. She spoke with her significant other to bring her personal items to the facility. She was given her clothes to change into and gathered her items from her room. She changed into the clothes to wear out. Appropriate papers signed and copy to the patient at discharge. 0952 She was walked down to meet the [employer] powder truck driver. [employer] walked her down. She was given the remainder of her items back. She was without complaint at discharge. [facility] 94on 08-16-2024 94 Department: [facility] Group Topic: Recreation Therapy Group Date: 08/16/2024 Start Time: 1119 End Time: 1158 Facilitators: Sara Leal Number of Participants: 1 Group Name: Recreation Therapy Treatment Modality: Recreation Therapy Purpose: explore healthy outlets Summary: Art - To allow Patients the opportunity to utilize self expression as a healthy outlet, source of relaxation and reflection. In addition, patients are challenged to engage decision making skills and self awareness during the creative process. Name: Felton Pa Date of : 1970 MR: [id number] Appearance: Good eye contact Affect: Appropriate Behavior: Pleasant Alertness: Alert Speech: Appropriate Level/Quality of Participation: engaged Interactions with others: na Interventions utilized were Empathic listening and Expressive therapy Patient's Response to Intervention: Patient engaged fully in art task by choosing their focus and supplies. Patient was active in discussion and reported being able to meet intention of relaxation. Patient reported enjoyment in participation and created an image of her son who passed as an otis. Continue to encourage group participation as appropriate. 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 pectoris Anxiety Alcohol use, unspecified with withdrawal, unspecified (HCC) Greater trochanteric bursitis Bleeding hemorrhoids Chronic back pain Hypomagnesemia Migraine without aura and responsive to treatment Mixed anxiety depressive disorder Steatosis of liver Tobacco dependence Alcohol dependence (HCC) Chronic alcohol use Abnormal mammogram Alcohol withdrawal syndrome with complication (HCC) Muscle pain Low back pain, unspecified Alcohol withdrawal seizure (HCC) Pain in joint involving pelvic region and thigh Other acidosis Alcohol abuse with withdrawal delirium (HCC) Tobacco use Thrombocytopenia (HCC) Encounter for screening for malignant neoplasm of colon Other specified disorders of breast Other disorders of bilirubin metabolism Nausea with vomiting, unspecified Major depressive disorder, single episode, unspecified Hypokalemia Generalized abdominal pain Fever, unspecified Decreased white blood cell count, unspecified Cannabis abuse, uncomplicated Severe alcohol use disorder (HCC) Acute lymphadenitis, unspecified Acute bronchitis, unspecified Transaminitis Normal [facility] Nursing Noteon 08-16-2024 Nursing Note Patient has been cooperative and friendly. Alert and oriented x4. Ambulating independently. Independent with ADLs. Social/pleasant with staff and peers; on unit talking and watching TV. Taking scheduled medications whole. PRN Trazodone for sleep and Mylanta for indigestion. Denies SI/HI. No delusions voiced/noted. No hallucinations voiced/noted. Safety maintained. Normal [facility] Nursing Note Patient received briseyda ke in lounge at shift change and already ate breakfast at shift change, and all safety measures in place. Patient wears eye glasses and took shower. Patient eating and drinking well,and compliant with all medications Q-shift. Patient. Received call from [employer] at 1400. Patient has been excepted. [employer] will P/U patient late AM, Early PM- 08/18/23. Patient has already received Vivitrol Injection today at 1100. Patient denies S.I.,H.I.,AH/VH/TH Q-Shift. Continue to monitor patient. Patient received PO PRN Tylenol as per orders at 1110 for back pain. Normal [facility] Progress Noteon 08-16-2024 Progress Note ---- -------- Attestation signed by Yuriy Lopez MD at 08/16/2024 12:39 PM I saw and evaluated the patient, participating in the mendez portions of the service. We reviewed the patient's medical record and test results. I personally spent a total 35 minutes in counseling and discussion with the patient and coordination of care. This included a face to face evaluation and physical examination, and documenting clinical information on the day of visit. I have reviewed the resident's note. I agree with the resident?s findings and plan, with any additions or corrections listed below. IM Vivitrol 380 mg for MAT given today OK for discharge to [facility] today - awaiting final acceptance -------- ADDICTION MEDICINE PROGRESS NOTE Patient: Felton Pa __ Problem List: Principal Problem: Alcohol withdrawal syndrome with complication (HCC) Active Problems: Thrombocytopenia (HCC) Severe alcohol use disorder (HCC) Transaminitis SUBJECTIVE Chief Complaint Patient presents with Alcohol Problem Last 4 CIWA scores per RN assessments 0 - 1 - 0 - 0 Interim History The patient reports she is doing well today. She continues to deny symptoms of withdrawal, including abdominal pain, nausea, vomiting, tremors, diaphoresis, chills, increased anxiety, muscle weakness/cramping. She no longer endorses constipation and had a BM this morning. She feels she is tolerating naltrexone well. She initially reported sedation/fatigue but denies this currently. She is agreeable to the Vivitrol injection today. She is tolerating fluids and has an intact appetite. She is sleeping well. She denies SI/HI/AVH. She continues to express interest in residential care after discharge. She spoke to her significant other about her plan, who intends to bring her clothing for her admission. She is engaged and interacts on the unit. She denies other complaints at this time. Review of Systems Review of Systems Constitutional: Negative for chills, decreased appetite, diaphoresis, fever and malaise/fatigue. HENT: Negative for congestion. Cardiovascular: Negative for chest pain. Respiratory: Negative for shortness of breath. Musculoskeletal: Positive for back pain (chronic) and joint pain (chronic). Gastrointestinal: Negative for abdominal pain, constipation, nausea and vomiting. Neurological: Negative for tremors. Psychiatric/Behavioral: Negative for hallucinations, suicidal ideas and thoughts of violence. The patient does not have insomnia. OBJECTIVE Vitals Vitals: 08/15/24 2154 08/16/24 0535 08/16/24 0831 08/16/24 1100 BP: 107/62 120/75 99/69 124/71 Pulse: 71 69 81 78 Resp: 16 16 16 16 Temp: 36.8 ?C (98.3 ?F) 36.6 ?C (97.9 ?F) 36.7 ?C (98 ?F) 36.7 ?C (98 ?F) TempSrc: Temporal Temporal Temporal Temporal SpO2: 100% 100% 98% 98% Weight: Height: Physical Exam Vitals and nursing note reviewed. Constitutional: General: She is not in acute distress. Appearance: Normal appearance. She is not ill-appearing, toxic-appearing or diaphoretic. HENT: Head: Normocephalic and atraumatic. Nose: Nose normal. No congestion or rhinorrhea. Mouth/Throat: Mouth: Mucous membranes are moist. Pharynx: Oropharynx is clear. Eyes: Conjunctiva/sclera: Conjunctivae normal. Cardiovascular: Rate and Rhythm: Normal rate. Pulmonary: Effort: Pulmonary effort is normal. Musculoskeletal: General: Normal range of motion. Skin: General: Skin is warm. Neurological: Mental Status: She is alert and oriented to person, place, and time. Motor: No tremor. Psychiatric: Attention and Perception: Attention and perception normal. Mood and Affect: Mood and affect normal. Speech: Speech normal. Behavior: Behavior normal. Behavior is cooperative. Thought Content: Thought content normal. Thought content does not include homicidal or suicidal ideation. Cognition and Memory: Cognition and memory normal. Judgment: Judgment normal. Medications Home Meds Current Outpatient Medications Medication Instructions escitalopram (LEXAPRO) 20 mg, Oral, Daily flurbiprofen (ANSAID) 100 mg, Oral, 3 times daily PRN lisinopril 5 MG tablet Oral, Daily spironolactone (ALDACTONE) 75 mg, Oral, Daily zonisamide (ZONEGRAN) 100 mg, Oral, 1 in morning and 2 at night Scheduled Inpatient Meds escitalopram, 20 mg, Oral, Daily folic acid, 1 mg, Oral, Daily gabapentin, 300 mg, Oral, q8h lisinopril, 5 mg, Oral, Daily naltrexone ER, 380 mg, IntraMUSCular, Once spironolactone, 75 mg, Oral, Daily thiamine, 100 mg, Oral, TID zonisamide, 100 mg, Oral, Daily And zonisamide, 200 mg, Oral, Nightly PRN Inpatient Meds PRN medications: acetaminophen, aluminum & magnesium hydroxide-simethic (more content not included)... [facility] 08-15-2024 30 Up in day room. Atte nded meetings. Cooperative with staff. Gait steady. Appetite good. [facility] [id number] 94 Department: [facility] Group Topic: Recreation Therapy Group Date: 08/15/2024 Start Time: 1613 End Time: 1654 Facilitators: Sara Leal Number of Participants: 2 Group Name: Recreation Therapy Treatment Modality: Recreation Therapy Purpose: regain self-worth Summary: 3 Animals - To allow Patients the opportunity to reconnect with positive qualities within themselves through examining animals they like. Patients will be asked to connect the qualities of animals to how they want to be seen, how they are actually seen and who they really are. Discussion focuses on accuracies, finding humor in inaccuracies and the importance of recognizing the self beyond circumstance. Name: Felton Pa Date of : 1970 MR: [id number] Appearance: Good eye contact Affect: Appropriate Behavior: Pleasant Alertness: Alert Speech: Appropriate Level/Quality of Participation: engaged Interactions with others: supportive Interventions utilized were Building rapport and engagement and Empathic listening Patient's Response to Intervention: Patient engaged in the intervention and discussion. Patient was able to connect to multiple positive qualities within themselves. Patient voiced understanding of group purpose. Patient reports wanting to reconnect with crafting and spoke of the benefits they get from participation. Patient spoke of the losses of her and son, as well as, the treatment she is going to go to. Support and encouragement offered. Patient encouraged in utilizing recreation to support reconnection to self and others as they work toward wellness. Continue to encourage patient participation in groups. 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 pectoris Anxiety Alcohol use, unspecified with withdrawal, unspecified (HCC) Greater trochanteric bursitis Bleeding hemorrhoids Chronic back pain Hypomagnesemia Migraine without aura and responsive to treatment Mixed anxiety depressive disorder Steatosis of liver Tobacco dependence Alcohol dependence (HCC) Chronic alcohol use Abnormal mammogram Alcohol withdrawal syndrome with complication (HCC) Muscle pain Low back pain, unspecified Alcohol withdrawal seizure (HCC) Pain in joint involving pelvic region and thigh Other acidosis Alcohol abuse with withdrawal delirium (HCC) Tobacco use Thrombocytopenia (HCC) Encounter for screening for malignant neoplasm of colon Other specified disorders of breast Other disorders of bilirubin metabolism Nausea with vomiting, unspecified Major depressive disorder, single episode, unspecified Hypokalemia Generalized abdominal pain Fever, unspecified Decreased white blood cell count, unspecified Cannabis abuse, uncomplicated Severe alcohol use disorder (HCC) Acute lymphadenitis, unspecified Acute bronchitis, unspecified Transaminitis Normal [facility] BASIC METABOLIC PANELon 03-0 Anion gap [Moles/Vol] 13 mmol/L Normal 3-[address] [facility] Comment on above: Performed By: #### L AB15 ####Pay Station Collector: MARY VALLE ([phone])[address] Calcium [Mass/Vol] 8.9 mg/dL Normal 8.4-10.2 [facility] Comment on above: Performed By: #### L AB15 ####Pay Station Collector: MARY VALLE ([phone])[facility] ([facility])[address] [place] [address] Chloride [Moles/Vol] 105 mmol/L Normal 98-107 [facility] Comment on above: Performed By: #### L AB15 ####Pay Station Collector: MARY VALLE ([phone])[facility])[address] [place] [address] CO2 [Moles/Vol] 18 mmol/L Low 22-29 [facility] Comment on above: Performed By: #### L AB15 ####Pay Station Collector: MARY VALLE ([phone])[facility])[address] [place] [address] Creatinine [Mass/Vol] 0.75 mg/dL Normal 0.57-1.[address] [facility] Comment on above: Performed By: #### L AB15 ####Pay Station Collector: MARY VALLE ([phone])[facility])[address] [place] [address] GLOMERULAR FILTRATION RATE ML/MIN/1.73 SQ M.PREDICTED >90.0 Normal >60.0 [facility] Comment on above: Result Comment: Calc ulation based on the Chronic Kidney Disease Epidemiology Collaboration (CKD-EPI) equation refit without adjustment for race Performed By: #### L AB15 ####Pay Station Collector: MARY VALLE ([phone])[facility])[address] [place] [address] Glucose [Mass/Vol] 114 mg/dL High 74-100 [facility] Comment on above: Performed By: #### L AB15 ####Pay Station Collector: MARY VALLE ([phone])[facility])[address] [place] [address] Potassium [Moles/Vol] 3.4 mmol/L Low 3.5-5.[address] [facility] Comment on above: Result Comment: [facility] potassium values may be up to 0.5 mmol/L lower than serum values. Performed By: #### L AB15 ####Pay Station Collector: MARY VALLE ([phone])[facility])[address] [place] [address] [place] Sodium [Moles/Vol] 136 mmol/L Normal 136-145 [facility] Comment on above: Performed By: #### L AB15 ####Pay Station Collector: MARY VALLE ([phone])[facility])[address] [place] [address] Urea nitrogen [Mass/Vol] 7 mg/dL Low 9-23 [facility] Comment on above: Performed By: #### L AB15 ####Pay Station Collector: MARY VALLE ([phone])[facility] ([facility])[address] [place] [address] Basic metabolic 1998 panelon 08-15-2024 Anion gap [Moles/Vol] 13 mmol/L 3 - 13 mmol/L [facility] Calcium [Mass/Vol] 8.9 mg/dL 8.4 - 10. 2 mg/dL [facility] Chloride [Moles/Vol] 105 mmol/L 98 - 10 7 mmol/L [facility] CO2 [Moles/Vol] 18 mmol/L Low 22 - 29 mmol/L [facility] Creatinine [Mass/Vol] 0.75 mg/dL 0.57 - 1.11 mg/dL [facility] GFR/1.73 sq M.predicted (S/P/Bld) [Vol rate/Area] - PINF [facility] Comment on above: Calculation based on the Chronic Kidney Disease Epidemiology Collaboration (CKD-EPI) equation refit without adjustment for race Glucose [Mass/Vol] 114 mg/dL High 74 - 100 mg/dL [facility] Interpretation and review of laboratory results Abnormal [facility] Potassium [Moles/Vol] 3.4 mmol/L Low 3.5 - 5.1 mmol/L [facility] Comment on above: Plasma potassium fer ues may be up to 0.5 mmol/L lower than serum values. Sodium [Moles/Vol] 136 mmol/L 136 - 145 mmol/L [facility] Urea nitrogen [Mass/Vol] 7 mg/dL Low 9 - 23 mg/dL [facility] Emergency Department Summary on 08-15-2024 Emergency Department Summary Normal [facility] Nursing Noteon 08-15-2024 Nursing Note Patient alert and oriented, med compliant, denies SI/HI/AVH, N/V/D. Patient complaint of constipation, given PRN Senokot. Patient is laying in bed reading with no other complaints at this time. Call light is within reach, encouraged to notify staff of any change in condition. Will continue to monitor for safety. Normal [facility] 30on 08-14-2024 30 Up on unit, attended meetings. Cooperative with staff. Appetite good. Gait steady. Social with peers. Normal [facility] [id number] 08-14-2024 [id number] Patient is now interested in residential treatment. During 08/13/2024 patient met with different social sciences department chair who sent application to [facility] for residential treatment. Patient however currently only has Medicare and being able to be in eligible for residential treatment at that agency. Previously show patient had reported that [facility] would be able to accept patient for residential treatment based on current insurance. Patient signed CANDIE referral faxed to agency. 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 [facility] CBC W Auto Differential pane l (Bld)on 08-14-2024 Basophils (Bld) [#/Vol] 0 10*3/uL 0.0 - 0.2 10*3/uL [facility] Basophils/100 WBC (Bld) 0.4 % 0.0 - 2.0 % [facility] Eosinophils (Bld) [#/Vol] 0.1 10*3/uL 0.0 - 0.5 10*3/uL [facility] Eosinophils/100 WBC (Bld) 2 % 0.0 - 6.0 % [facility] Erythrocyte distribution width (RBC) [Ratio] 15.1 % High 11.5 - 15.0 % [facility] Hematocrit (Bld) [Volume fraction] 31.7 % Low 35.0 - 47.0 % [facility] Hemoglobin (Bld) [Mass/Vol] 10.4 g/dL Low 11.7 - 16.0 g/dL [facility] Immature granulocytes (Bld) [#/Vol] 0 10*3/uL NINF - 0.1 10*3/uL [facility] Immature granulocytes/100 WBC (Bld) 0.2 % 0.0 - 2.0 % [facility] Interpretation and review of laboratory results Abnormal [facility] Lymphocytes (Bld) [#/Vol] 1.3 10*3/uL 1.0 - 4.3 10*3/uL [facility] Lymphocytes/100 WBC (Bld) 28.3 % 15.0 - 45.0 % [facility] MCH (RBC) [Entitic mass] 32.7 pg 26.0 - 34.0 pg [facility] MCHC (RBC) [Mass/Vol] 32.8 % 30.5 - 36.0 % [facility] MCV (RBC) [Entitic vol] 99.7 fL High 77.0 - 99.0 fL [facility] Monocytes (Bld) [#/Vol] 0.4 10*3/uL 0.0 - 0.9 10*3/uL [facility] Monocytes/100 WBC (Bld) 8.9 % 5.0 - 13.0 % [facility] Neutrophils (Bld) [#/Vol] 2.7 10*3/uL 1.8 - 7.5 10*3/uL [facility] Neutrophils/100 WBC (Bld) 60.2 % 38.0 - 82.0 % [facility] Nucleated RBC/100 WBC (Bld) [Ratio] 0 % [facility] Platelet mean volume (Bld) [Entitic vol] 10.6 fL 9.0 - 12.7 fL [facility] Platelets (Bld) [#/Vol] 100 10*3/uL Low 140 - 440 10*3/uL [facility] RBC (Bld) [#/Vol] 3.18 10*6/uL Low 3.80 - 5.2 0 10*6/uL [facility] WBC (Bld) [#/Vol] 4.5 10*3/uL 3.6 - 10.7 10*3/uL [facility] CBC WITH AUTO DIFFERENTIALon 08-14-2024 Basophils (Bld) [#/Vol] 0.0 10*3/uL Normal 0.0-0.2 [facility] Comment on above: Performed By: #### L [id number] ####Pay Station Collector: MARY VALLE ([phone])[address] Basophils/100 WBC (Bld) 0.4 % Normal 0.0-2.0 [facility] Comment on above: Performed By: #### L [id number] ####Pay Station Collector: MARY VALLE ([phone])[facility])[address] [place] [address] Eosinophils (Bld) [#/Vol] 0.1 10*3/uL Normal 0.0-0.5 [facility] Comment on above: Performed By: #### L [id number] ####Pay Station Collector: MARY VALLE ([phone])[address] Eosinophils/100 WBC (Bld) 2.0 % Normal 0.0-6.0 [facility] Comment on above: Performed By: #### L [id number] ####Pay Station Collector: MARY VALLE ([phone])[address] Erythrocyte distribution width (RBC) [Ratio] 15.1 % High 11.5-15.0 [facility] Comment on above: Performed By: #### L [id number] ####Pay Station Collector: MARY VALLE ([phone])[address] Hematocrit (Bld) [Volume fraction] 31.7 % Low 35.0-47.0 [facility] Comment on above: Performed By: #### L [id number] ####Pay Station Collector: MARY VALLE ([phone])[address] Hemoglobin (Bld) [Mass/Vol] 10.4 g/dL Low 11.7-16.0 [facility] Comment on above: Performed By: #### L [id number] ####Pay Station Collector: MARY VALLE ([phone])[address] IMMATURE GRANS % 0.2 % Normal 0.0-2.0 [facility] Comment on above: Performed By: #### L [id number] ####Pay Station Collector: MARY VALLE ([phone])[address] IMMATURE GRANS ABSOLUTE 0.0 10*3/uL Normal <0.1 [facility] Comment on above: Performed By: #### L [id number] ####Pay Station Collector: MARY [phone])[facility])[address] [place] [address] Lymphocytes (Bld) [#/Vol] 1.3 10*3/uL Normal 1.0-4.3 [facility] Comment on above: Performed By: #### L [id number] ####Pay Station Collector: MARY VALLE ([phone])[facility])[address] [place] [address] Lymphocytes/100 WBC (Bld) 28.3 % Normal 15.0-45.0 [facility] Comment on above: Performed By: #### L [id number] ####Pay Station Collector: MARY VALLE ([phone])[facility])[address] [place] [address] MCH (RBC) [Entitic mass] 32.7 pg Normal 26.0-34.0 [facility] Comment on above: Performed By: #### L [id number] ####Pay Station Collector: MARY VALLE ([phone])[facility])[address] [place] [address] MCHC 32.8 % Normal 30.5-36.0 [facility] Comment on above: Performed By: #### L [id number] ####Pay Station Collector: MARY VALLE ([phone])[facility])[address] [place] [address] MCV (RBC) [Entitic vol] 99.7 fL High 77.0-99.0 [facility] Comment on above: Performed By: #### L [id number] ####Pay Station Collector: MARY VALLE ([phone])[facility])[address] [place] [address] Monocytes (Bld) [#/Vol] 0.4 10*3/uL Normal 0.0-0.9 [facility] Comment on above: Performed By: #### L [id number] ####Pay Station Collector: MARY VALLE ([phone])[facility])[address] [place] [address] [place] Monocytes/100 WBC (Bld) 8.9 % Normal 5.0-13.0 [facility] Comment on above: Performed By: #### L [id number] ####Pay Station Collector: MARY VALLE ([phone])[facility] ([facility])[address] [place] [address] NEUTROPHILS ABSOLUTE 2.7 10*3/uL Normal 1.8-7.5 [facility] Comment on above: Performed By: #### L [id number] ####Pay Station Collector: MARY VALLE ([phone])[facility] ([facility])[address] [place] [address] Neutrophils/100 WBC (Bld) 60.2 % Normal 38.0-82.0 [facility] Comment on above: Performed By: #### L [id number] ####Pay Station Collector: MARY VALLE ([phone])[facility] ([facility])[address] [place] [address] NRBC 0.0 /100 WBCs Normal 0.0-2.0 [facility] Comment on above: Performed By: #### L [id number] ####Pay Station Collector: MARY VALLE ([phone])[facility] ([facility])[address] [place] [address] Platelet mean volume (Bld) [Entitic vol] 10.6 fL Normal 9.0-12.7 [facility] Comment on above: Performed By: #### L [id number] ####Pay Station Collector: MARY VALLE ([phone])[facility] ([facility])[address] [place] [address] Platelets (Bld) [#/Vol] 100 10*3/uL Low 140-440 [facility] Comment on above: Performed By: #### L [id number] ####Pay Station Collector: MARY VALLE ([phone])[facility] ([facility])[address] [place] [address] RBC (Bld) [#/Vol] 3.18 10*6/uL Low 3.80-5.20 [facility] Comment on above: Performed By: #### L [id number] ####Pay Station Collector: MARY VALLE ([phone])[facility] ([facility])[address] [place] [address] WBC (Bld) [#/Vol] 4.5 10*3/uL Normal 3.6-10.7 [facility] Comment on above: Performed By: #### L [id number] ####Pay Station Collector: MARY VALLE ([phone])[facility] ([facility])[address] [place] [address] COMPREHENSIVE METABOLIC PANE Ghassan 08-14-2024 Albumin [Mass/Vol] 3.3 g/dL Low 3.5-5.0 [facility] Comment on above: Performed By: #### L [id number], [id number] #### Pay Station Collector: MARY VALLE ([phone]) [facility] ([facility]) [address] [place] [address] ALP [Catalytic activity/Vol] 79 U/L Normal 40-150 [facility] Comment on above: Performed By: #### L [id number], [id number] #### Pay Station Collector: MARY VALLE ([phone]) [facility] ([facility]) [address] [place] [address] ALT [Catalytic activity/Vol] 23 U/L Normal <30 [facility] Comment on above: Performed By: #### L AB17, [id number] #### Pay Station Collector: MARY VALLE ([id number]) [facility] ([facility]) [address] [place] [address] Anion gap [Moles/Vol] 7 mmol/L Normal 3-13 [facility] Comment on above: Performed By: #### L AB17, [id number] #### Pay Station Collector: MARY VALLE ([phone]) [facility]) [address] [place] [address] AST [Catalytic activity/Vol] 44 U/L High <34 [facility] Comment on above: Performed By: #### L [id number], [id number] #### Pay Station Collector: MARY VALLE ([phone]) [facility] ([facility]) [address] [place] [address] Bilirubin [Mass/Vol] 0.8 mg/dL Normal <1.2 [facility] Comment on above: Performed By: #### L AB17, [id number] #### Pay Station Collector: MARY VALLE ([phone]) [facility]) [address] [place] [address] Calcium [Mass/Vol] 8.3 mg/dL Low 8.4-10.2 [facility] Comment on above: Performed By: #### L [id number], [id number] #### Pay Station Collector: MARY VALLE ([phone]) [facility]) [address] [place] [address] Chloride [Moles/Vol] 106 mmol/L Normal 98-107 [facility] Comment on above: Performed By: #### L [id number], [id number] #### Pay Station Collector: MARY VALLE ([phone]) [facility] ([facility]) [address] [place] [address] CO2 [Moles/Vol] 18 mmol/L Low 22-29 [facility] Comment on above: Performed By: #### L AB17, [id number] #### Pay Station Collector: MARY VALLE ([phone]) [facility]) [address] [place] [address] Creatinine [Mass/Vol] 0.75 mg/dL Normal 0.57-1.[address] [facility] Comment on above: Performed By: #### L AB17, [id number] #### Pay Station Collector: MARY VALLE ([phone]) [facility]) [address] [place] [address] GLOMERULAR FILTRATION RATE ML/MIN/1.73 SQ M.PREDICTED >90.0 Normal >60.0 [facility] Comment on above: Result Comment: Calc ulation based on the Chronic Kidney Disease Epidemiology Collaboration (CKD-EPI) equation refit without adjustment for race Performed By: #### L AB17, [id number] #### Pay Station Collector: MARY [phone]) [facility] ([facility]) [address] [place] [address] Glucose [Mass/Vol] 118 mg/dL High 74-100 [facility] Comment on above: Performed By: #### L AB17, [id number] #### Pay Station Collector: MARY VALLE ([phone]) [facility] ([facility]) [address] [place] [address] Potassium [Moles/Vol] 3.4 mmol/L Low 3.5-5.[address] [facility] Comment on above: Result Comment: [facility] potassium values may be up to 0.5 mmol/L lower than serum values. Performed By: #### L AB17, [id number] #### Pay Station Collector: MARY VALLE ([phone]) [facility] ([facility]) [address] [place] [address] Protein [Mass/Vol] 6.7 g/dL Normal 6.4-8.3 [facility] Comment on above: Performed By: #### L AB17, [id number] #### Pay Station Collector: MARY VALLE ([phone]) [facility] ([facility]) [address] [place] [address] Sodium [Moles/Vol] 131 mmol/L Low 136-145 [facility] Comment on above: Performed By: #### L AB17, [id number] #### Pay Station Collector: MARY VALLE ([phone]) [facility] ([facility]) [address] [place] [address] Urea nitrogen [Mass/Vol] 11 mg/dL Normal 9-23 [facility] Comment on above: Performed By: #### L AB17, [id number] #### Pay Station Collector: MARY VALLE ([phone]) [facility] ([facility]) [address] [place] [address] Comprehensive metabolic 1998 panelon 08-14-2024 Albumin [Mass/Vol] 3.3 g/dL Low 3.5 - 5.0 g/dL [facility] ALP [Catalytic activity/Vol] 79 U/L 40 - 150 U/L [facility] ALT [Catalytic activity/Vol] 23 U/L NINF - 30 U/L [facility] Anion gap [Moles/Vol] 7 mmol/L 3 - 13 mmol/L [facility] AST [Catalytic activity/Vol] 44 U/L High NINF - 34 U/L [facility] Bilirubin [Mass/Vol] 0.8 mg/dL NINF - 1.2 mg/dL [facility] Calcium [Mass/Vol] 8.3 mg/dL Low 8.4 - 10. 2 mg/dL [facility] Chloride [Moles/Vol] 106 mmol/L 98 - 10 7 mmol/L [facility] CO2 [Moles/Vol] 18 mmol/L Low 22 - 29 mmol/L [facility] Creatinine [Mass/Vol] 0.75 mg/dL 0.57 - 1.11 mg/dL [facility] GFR/1.73 sq M.predicted (S/P/Bld) [Vol rate/Area] - PINF [facility] Comment on above: Calculation based on the Chronic Kidney Disease Epidemiology Collaboration (CKD-EPI) equation refit without adjustment for race Glucose [Mass/Vol] 118 mg/dL High 74 - 100 mg/dL [facility] Interpretation and review of laboratory results Abnormal [facility] Potassium [Moles/Vol] 3.4 mmol/L Low 3.5 - 5.1 mmol/L [facility] Comment on above: Plasma potassium fer ues may be up to 0.5 mmol/L lower than serum values. Protein [Mass/Vol] 6.7 g/dL 6.4 - 8.3 g/dL [facility] Sodium [Moles/Vol] 131 mmol/L Low 136 - 145 mmol/L [facility] Urea nitrogen [Mass/Vol] 11 mg/dL 9 - 23 mg/dL [facility] Laboratory - Chemistry and C hemistry - challengeon 08-14-2024 Magnesium [Mass/Vol] 1.6 mg/dL 1.6 - 2 .6 mg/dL [facility] MAGNESIUMon 08-14-2024 Magnesium [Mass/Vol] 1.6 mg/dL Normal 1.6-2.6 [facility] Comment on above: Result Comment: ORDE R COMMENTS: Higher values can be expected in females during menses. Performed By: #### L AB17, [id number] #### Pay Station Collector: MARY VALLE ([phone]) [facility] ([facility]) [address] Magnesium [Mass/Vol]on 08-14 Interpretation and review of laboratory results Normal [facility] Higher values can be expected in females during menses. [facility] Nursing Noteon 08-14-2024 Nursing Note Pt has been napping on and off this evening, she wakes up and reads her book then goes back to sleep. She is up and steady. She is A and O x 4. She denies SI/HI/AVH. She reports her appetite has been fair today. She has been compliant with her medications. Normal [facility] Nursing Note Up in day room drink ing coffee. States bm yesterday. Generally feels good. Relaxed. States did order breakfast. Normal [facility] 30on 08-13-2024 30 Up and social. Gait steady. Attended meetings. Appetite fair. Cooperative. [facility] [id number] 08-13-2024 [id number] Spoke 180 Janet [place] contact and fax number for Cynthia/ Women's program left. provided fax number spoke to pt release signed records faxed. Support offered to pt. [facility] CBC W Auto Differential pane l (Bld)Ordered By: Nandini Mcfarlane on 08-13-2024 Basophils (Bld) [#/Vol] 0 10*3/uL 0.0 - 0.2 10*3/uL [facility] Basophils/100 WBC (Bld) 0.7 % 0.0 - 2.0 % [facility] Eosinophils (Bld) [#/Vol] 0.1 10*3/uL 0.0 - 0.5 10*3/uL [facility] Eosinophils/100 WBC (Bld) 1.5 % 0.0 - 6.0 % [facility] Erythrocyte distribution width (RBC) [Ratio] 15.2 % High 11.5 - 15.0 % [facility] Hematocrit (Bld) [Volume fraction] 30.6 % Low 35.0 - 47.0 % [facility] Hemoglobin (Bld) [Mass/Vol] 10.4 g/dL Low 11.7 - 16.0 g/dL [facility] Immature granulocytes (Bld) [#/Vol] 0 10*3/uL NINF - 0.1 10*3/uL [facility] Immature granulocytes/100 WBC (Bld) 0.5 % 0.0 - 2.0 % [facility] Interpretation and review of laboratory results Abnormal [facility] IPF 5 [facility] Lymphocytes (Bld) [#/Vol] 1.7 10*3/uL 1.0 - 4.3 10*3/uL [facility] Lymphocytes/100 WBC (Bld) 41.4 % 15.0 - 45.0 % [facility] MCH (RBC) [Entitic mass] 32.8 pg 26.0 - 34.0 pg [facility] MCHC (RBC) [Mass/Vol] 34 % 30.5 - 36.0 % [facility] MCV (RBC) [Entitic vol] 96.5 fL 77.0 - 99.0 fL [facility] Monocytes (Bld) [#/Vol] 0.4 10*3/uL 0.0 - 0.9 10*3/uL [facility] Monocytes/100 WBC (Bld) 9.2 % 5.0 - 13.0 % [facility] Neutrophils (Bld) [#/Vol] 1.9 10*3/uL 1.8 - 7.5 10*3/uL [facility] Neutrophils/100 WBC (Bld) 46.7 % 38.0 - 82.0 % [facility] Nucleated RBC/100 WBC (Bld) [Ratio] 0 % [facility] Platelet mean volume (Bld) [Entitic vol] 10.8 fL 9.0 - 12.7 fL [facility] Platelets (Bld) [#/Vol] 94 10*3/uL Low 140 - 440 10*3/uL [facility] RBC (Bld) [#/Vol] 3.17 10*6/uL Low 3.80 - 5.2 0 10*6/uL [facility] WBC (Bld) [#/Vol] 4 10*3/uL 3.6 - 10.7 10*3/uL [facility] CBC WITH AUTO DIFFERENTIALon 08-13-2024 Basophils (Bld) [#/Vol] 0.0 10*3/uL Normal 0.0-0.2 [facility] Comment on above: Performed By: #### L AB17, [id number] #### Pay Station Collector: MARY VALLE ([phone]) [facility]) [address] [place] [address] Basophils/100 WBC (Bld) 0.7 % Normal 0.0-2.0 [facility] Comment on above: Performed By: #### L AB17, [id number] #### Pay Station Collector: MARY VALLE ([phone]) [facility]) [address] [place] [address] Eosinophils (Bld) [#/Vol] 0.1 10*3/uL Normal 0.0-0.5 [facility] Comment on above: Performed By: #### L AB17, [id number] #### Pay Station Collector: MARY VALLE ([phone]) [facility]) [address] [place] [address] Eosinophils/100 WBC (Bld) 1.5 % Normal 0.0-6.0 [facility] Comment on above: Performed By: #### L AB17, [id number] #### Pay Station Collector: MARY VALLE ([phone]) [facility]) [address] [place] [address] Erythrocyte distribution width (RBC) [Ratio] 15.2 % High 11.5-15.0 [facility] Comment on above: Performed By: #### L AB17, [id number] #### Pay Station Collector: MARY VALLE ([phone]) [facility]) [address] [place] [address] Hematocrit (Bld) [Volume fraction] 30.6 % Low 35.0-47.0 [facility] Comment on above: Performed By: #### L AB17, [id number] #### Pay Station Collector: MARY VALLE ([phone]) [facility]) [address] [place] [address] Hemoglobin (Bld) [Mass/Vol] 10.4 g/dL Low 11.7-16.0 [facility] Comment on above: Performed By: #### L AB17, [id number] #### Pay Station Collector: MARY VALLE ([phone]) [facility]) [address] [place] [address] IMMATURE GRANS % 0.5 % Normal 0.0-2.0 [facility] Comment on above: Performed By: #### L AB17, [id number] #### Pay Station Collector: MARY VALLE ([phone]) [facility]) [address] [place] [address] IMMATURE GRANS ABSOLUTE 0.0 10*3/uL Normal <0.1 [facility] Comment on above: Performed By: #### L AB17, [id number] #### Pay Station Collector: MARY VALLE ([phone]) [place] [address] [place] IPF 5 Normal [facility] Comment on above: Performed By: #### L AB17, [id number] #### Pay Station Collector: MARY VALLE ([phone]) [facility]) [address] [place] [address] Lymphocytes (Bld) [#/Vol] 1.7 10*3/uL Normal 1.0-4.3 [facility] Comment on above: Performed By: #### L AB17, [id number] #### Pay Station Collector: MARY VALEL ([phone]) [facility]) [address] [place] [address] Lymphocytes/100 WBC (Bld) 41.4 % Normal 15.0-45.0 [facility] Comment on above: Performed By: #### L AB17, [id number] #### Pay Station Collector: MAYR VALLE ([phone]) [facility]) [address] [place] [address] MCH (RBC) [Entitic mass] 32.8 pg Normal 26.0-34.0 [facility] Comment on above: Performed By: #### L AB17, [id number] #### Pay Station Collector: MARY VALLE ([phone]) [facility] ([facility]) [address] [place] [address] MCHC 34.0 % Normal 30.5-36.0 [facility] Comment on above: Performed By: #### L AB17, [id number] #### Pay Station Collector: MARY VALLE ([phone]) [facility] ([facility]) [address] [place] [address] MCV (RBC) [Entitic vol] 96.5 fL Normal 77.0-99.0 [facility] Comment on above: Performed By: #### L AB17, [id number] #### Pay Station Collector: MARY VALLE ([phone]) [facility] ([facility]) [address] [place] [address] Monocytes (Bld) [#/Vol] 0.4 10*3/uL Normal 0.0-0.9 [facility] Comment on above: Performed By: #### L AB17, [id number] #### Pay Station Collector: MARY VALLE ([phone]) [facility] ([facility]) [address] [place] [address] Monocytes/100 WBC (Bld) 9.2 % Normal 5.0-13.0 [facility] Comment on above: Performed By: #### L AB17, [id number] #### Pay Station Collector: MARY VALLE ([phone]) [facility] ([facility]) [address] [place] [address] NEUTROPHILS ABSOLUTE 1.9 10*3/uL Normal 1.8-7.5 [facility] Comment on above: Performed By: #### L AB17, [id number] #### Pay Station Collector: MARY VALLE ([phone]) [facility]) [address] [place] [address] Neutrophils/100 WBC (Bld) 46.7 % Normal 38.0-82.0 [facility] Comment on above: Performed By: #### L AB17, [id number] #### Pay Station Collector: MARY VALLE ([phone]) [facility] ([facility]) [address] [place] [address] NRBC 0.0 /100 WBCs Normal 0.0-2.0 [facility] Comment on above: Performed By: #### L [id number], [id number] #### Pay Station Collector: MARY VALLE ([phone]) [facility]) [address] [place] [address] Platelet mean volume (Bld) [Entitic vol] 10.8 fL Normal 9.0-12.7 [facility] Comment on above: Performed By: #### L [id number], [id number] #### Pay Station Collector: MARY VALLE ([phone]) [facility] ([facility]) [address] [place] [address] Platelets (Bld) [#/Vol] 94 10*3/uL Low 140-440 [address] [facility] Comment on above: Performed By: #### L [id number], [id number] #### Pay Station Collector: MARY VALLE ([phone]) [facility] ([facility]) [address] [place] [address] RBC (Bld) [#/Vol] 3.17 10*6/uL Low 3.80-5.20 [facility] Comment on above: Performed By: #### L AB17, [id number] #### Pay Station Collector: MARY VALLE ([phone]) [facility] ([facility]) [address] [place] [address] WBC (Bld) [#/Vol] 4.0 10*3/uL Normal 3.6-10.7 [facility] Comment on above: Performed By: #### L [id number], [id number] #### Pay Station Collector: MARY VALLE ([phone]) [facility] ([facility]) [address] [place] [address] COMPREHENSIVE METABOLIC PANE Ghassan 08-13-2024 Albumin [Mass/Vol] 3.1 g/dL Low 3.5-5.0 [facility] Comment on above: Performed By: #### L AB17, [id number] #### Pay Station Collector: MARY VALLE ([phone]) [facility] ([facility]) [address] [place] [address] ALP [Catalytic activity/Vol] 82 U/L Normal 40-150 [facility] Comment on above: Performed By: #### L [id number], [id number] #### Pay Station Collector: MARY VALLE ([phone]) [facility] ([facility]) [address] [place] [address] ALT [Catalytic activity/Vol] 20 U/L Normal <30 [facility] Comment on above: Performed By: #### L AB17, [id number] #### Pay Station Collector: MARY VALLE ([phone]) [facility] ([facility]) [address] [place] [address] Anion gap [Moles/Vol] 10 mmol/L Normal 3-13 [facility] Comment on above: Performed By: #### L AB17, [id number] #### Pay Station Collector: MARY VALLE ([phone]) [facility] ([facility]) [address] [place] [address] AST [Catalytic activity/Vol] 43 U/L High <34 [facility] Comment on above: Performed By: #### L AB17, [id number] #### Pay Station Collector: MARY VALLE ([phone]) [facility] ([facility]) [address] [place] [address] Bilirubin [Mass/Vol] 0.9 mg/dL Normal <1.2 [facility] Comment on above: Performed By: #### L AB17, [id number] #### Pay Station Collector: MARY VALLE ([phone]) [facility] ([facility]) [address] [place] [address] Calcium [Mass/Vol] 8.5 mg/dL Normal 8.4-10.2 [facility] Comment on above: Performed By: #### L AB17, [id number] #### Pay Station Collector: MARY VALLE ([phone]) [facility]) [address] [place] [address] [place] Chloride [Moles/Vol] 104 mmol/L Normal 98-107 [facility] Comment on above: Performed By: #### L AB17, [id number] #### Pay Station Collector: MARY VALLE ([phone]) [facility] ([facility]) [address] [place] [address] CO2 [Moles/Vol] 19 mmol/L Low 22-29 [facility] Comment on above: Performed By: #### L AB17, [id number] #### Pay Station Collector: MARY VALLE ([phone]) [facility] ([facility]) [address] [place] [address] Creatinine [Mass/Vol] 0.74 mg/dL Normal 0.57-1.[address] [facility] Comment on above: Performed By: #### L AB17, [id number] #### Pay Station Collector: MARY VALLE ([phone]) [facility]) [address] [place] [address] GLOMERULAR FILTRATION RATE ML/MIN/1.73 SQ M.PREDICTED >90.0 Normal >60.0 [facility] Comment on above: Result Comment: Calc ulation based on the Chronic Kidney Disease Epidemiology Collaboration (CKD-EPI) equation refit without adjustment for race Performed By: #### L AB17, [id number] #### Pay Station Collector: MARY VALLE ([phone]) [facility] ([facility]) [address] [place] [address] [place] Glucose [Mass/Vol] 87 mg/dL Normal 74-100 [facility] Comment on above: Performed By: #### L AB17, [id number] #### Pay Station Collector: MARY VALLE ([phone]) [facility] ([facility]) [address] [place] [address] [place] Potassium [Moles/Vol] 3.0 mmol/L Low 3.5-5.[address] [facility] Comment on above: Result Comment: [facility] potassium values may be up to 0.5 mmol/L lower than serum values. Performed By: #### L AB17, [id number] #### Pay Station Collector: MARY VALLE ([phone]) [facility] ([facility]) [address] [place] [address] Protein [Mass/Vol] 6.0 g/dL Low 6.4-8.3 [facility] Comment on above: Performed By: #### L AB17, [id number] #### Pay Station Collector: MARY VALLE ([phone]) [facility] ([facility]) [address] [place] [address] Sodium [Moles/Vol] 133 mmol/L Low 136-145 [facility] Comment on above: Performed By: #### L AB17, [id number] #### Pay Station Collector: MARY VALLE ([phone]) [facility] ([facility])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 Normal [facility] Comment on above: Performed By: #### L AB17, [id number] #### Pay Station Collector: MARY VALLE ([phone]) [facility] ([facility]) [address] [place] [address] [place] SEGEMENTED NEUTROPHILS/100 LEUKOCYTES BY MANUAL COUNT 85 % High 38-82 [facility] Comment on above: Performed By: #### L AB17, [id number] #### Pay Station Collector: MARY VALLE ([phone]) [facility] ([facility]) [address] [place] [address] [place] SEGMENTED NEUTROPHILS (10*3/UL)IN BLOOD BY MANUAL COUNT 3.8 10*3/uL Normal 1.8-7.5 [facility] Comment on above: Performed By: #### L AB17, [id number] #### Pay Station Collector: MARY VALLE ([phone]) [facility]) [address] [place] [address] VARIANT LYMPHOCYTES (10*3/UL) IN BLOOD BY MANUAL COUNT 0.0 10*3/uL Normal <=0.0 [facility] Comment on above: Performed By: #### L AB17, [id number] #### Pay Station Collector: MARY VALLE ([phone]) [facility] ([facility]) [address] [place] [address] VARIANT LYMPHOCYTES TOTAL PER COUNTED LEUKOCYTES BY MANUAL COUNT 1 Normal [facility] Comment on above: Performed By: #### L AB17, [id number] #### Pay Station Collector: MARY VALLE ([phone]) [facility] ([facility]) [address] [place] [address] Manual differential performe d Ql (Bld)on 08-11-2024 Atypical Lymphocytes Manual 1 [facility] Band form neutrophils (Bld) [#/Vol] 0.1 10*3/uL High NINF - 0.0 10*3/uL [facility] Band form neutrophils/100 WBC (Bld) 2 % High NINF - 0 % [facility] Bands Manual 2 [facility] Basophils (Bld) [#/Vol] 0 10*3/uL 0.0 - 0.2 10*3/uL [facility] Basophils Manual 1 [facility] Basophils/100 WBC (Bld) 1 % 0 - 2 % [facility] Cells Counted Total (Bld) [#] 100 {cells} [facility] Differential Method Manual differential performed [facility] Eosinophils (Bld) [#/Vol] 0 10*3/uL 0.0 - 0.5 10*3/uL [facility] Eosinophils Manual 0 0 - 1 [facility] Eosinophils/100 WBC (Bld) 0 % 0 - 6 % [facility] Leukocyte morphology finding Nom (Bld) Normal [facility] Lymphocytes (Bld) [#/Vol] 0.3 10*3/uL Low 1.0 - 4.3 10*3/uL [facility] Lymphocytes Manual 7 [facility] Lymphocytes/100 WBC (Bld) 7 % Low 15 - 45 % [facility] Monocytes (Bld) [#/Vol] 0.2 10*3/uL 0.0 - 0.9 10*3/uL [facility] Monocytes Manual 4 [facility] Monocytes/100 WBC (Bld) 4 % Low 5 - 13 % [facility] Neutrophils (Bld) [#/Vol] 3.8 10*3/uL 1.8 - 7.5 10*3/uL [facility] Neutrophils Manual 85 [facility] Platelet morphology finding Nom (Bld) Normal [facility] RBC morphology finding Nom (Bld) Normal [facility] Segmented neutrophils/100 WBC (Bld) 85 % High 38 - 82 % [facility] Variant lymphocytes (Bld) [#/Vol] 0 10*3/uL NINF - 0.0 10*3/uL [facility] Variant lymphocytes/100 WBC (Bld) 1 % High NINF - 0 % [facility] WBC corrected for nucl RBC (Bld) [#/Vol] 4.4 10*3/uL 3.6 - 10.7 10*3/uL [facility] No Panel InformationOrdered By: Mio Lew on 08-11-2024 Interpretation and review of laboratory results Abnormal [facility] No Panel Informationon 08-11 [facility] Values in should double every 2 to 3 days for the first 6 weeks. Elevated concentrations of human chorionic gonadotropin (hCG) measured in the first trimester of are observed in normal , but may serve as an indication of chorionic carcinoma, hydatiform mole, or multiple . Decreasing hCG concentrations indicate threatened or missed , recent termination of , ectopic , gestosis or intrauterine . Reyna- and postmenopausal females may have detectable hCG concentrations (< or = to 14 mIU/mL) due to pituitary production of hCG. Serum follicle-stimulating hormone measurement may aid in ruling-out in this population. Cutoffs of greater than 20 to 45 mIU/mL have been suggested and are method dependent. False-elevations (called phantom human chorionic gonadotropin: hCG) may occur with patients who have human antianimal or heterophilic antibodies. Some specimens may not dilute linearly due to abnormal forms of hCG. Elevated hCG concentrations not associated with are found in patients with other diseases such as tumors of the germ cells, ovaries, bladder, pancreas, stomach, lungs, and liver. This test is not intended to detect or monitor tumors or gestational trophoblastic disease. [facility] COCAINE METAB. SCREEN Negative [facility] FENTANYL SCREEN, UR QUAL Negative [facility] The expected value f or all of the drugs listed above is Negative. The following drugs or drug groups have been screened for by Immunoassay at the following thresholds: Amphetamine class (1000 ng/mL) Barbiturates (200 ng/mL) Benzodiazepines (200 ng/mL) Cocaine (300 ng/mL) Methadone (300 ng/mL) Opiates (300 ng/mL) Oxycodone (100 ng/mL) PCP (25 ng/mL) Fentanyl (1.0 ng/ml) NOTE: These results are for medical treatment only. Analysis performed using non-forensic procedures. POSITIVE results are NOT confirmed by a more specific alternative method unless requested. If confirmation is needed, request confirmation under separate order. [facility] P [place] 79 degrees [facility] OK Interval 122 ms [facility] QRS [place] 49 degrees [facility] QRSD Interval 87 ms [facility] QT Interval 409 ms [facility] QTC Interval 487 ms [facility] T Wave [place] 58 degrees [facility] EKG shows NSR with P ACs. Normal axis, normal [place] QRS and prolonged QTC intervals. No STEMI, no SVT, no LVH. No old EKG. Electronically Signed On 08-11-2024 14:30:03 EST by John Rodriguez MD - 08/11/2024 IMPRESSION: EKG shows NSR with PACs. Normal axis, normal [place] QRS and prolonged QTC intervals. No STEMI, no SVT, no LVH. No old EKG. 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 Patient very unsteady, sedated, bed alarm on for safety. Patient cooperative and answered most admission questions. Skin check, bruising on left elbow. Patient reports she obtains her home medication from [facility] in [place]. Normal [facility] SARS-COV-2 ANTIGENon 025 SARS-COV-2 ANTIGEN SARS-COV-2 ANTIGEN -BINAX Reference Negative Negative A negative result does not rule out the possibility of SARS-CoV-2 infection. NAAT-based methods should be considered for symptomatic patients presenting greater than seven days after onset of symptoms. Method: Lateral flow immunoassay. Fact sheets for healthcare providers and patients can be found at the following sites: https://www.fda.gov/medi a/001396/download https://www.fda.gov/medi a/750142/download Normal [facility] Comment on above: Performed By: #### L [id number] #### Pay Station Collector: MARY VALLE ([phone]) [facility] ([facility]) [address] [place] [address] SARS-CoV-2 (COVID-19) Ag IA. rapid Ql (Resp)Ordered By: Natalie Kumari on 08-11-2024 Interpretation and review of laboratory results Normal [facility] Urinalysis complete panel (U )on 08-11-2024 Bacteria LM.HPF (Urine sed) [#/Area] Few Abnormal Negative /HPF [facility] Bilirubin Ql (U) Negative Negative mg/dL [facility] Clarity (U) Clear Clear [facility] Color (U) Light Yellow Lt. Yellow [facility] Epithelial cells.squamous LM.HPF (Urine sed) [#/Area] 0-2 [facility] Glucose Ql (U) 100 mg/dL Abnormal Normal (<70) [facility] Hemoglobin Ql (U) 0.03 mg/dL Abnormal Negative [facility] Interpretation and review of laboratory results Abnormal [facility] Ketones (U) [Mass/Vol] 20 mg/dL Abnormal Negative [facility] Leukocyte esterase Test strip Ql (U) Negative Negative Kishore/uL [facility] Nitrite Ql (U) Negative Negative [facility] pH (U) 7.0 [pH] 5.0 - 8.0 pH [facility] Protein (U) [Mass/Vol] 100 mg/dL Abnormal Negative [facility] RBC LM.HPF (Urine sed) [#/Area] 0-2 [facility] Specific gravity (U) [Rel density] 1.013 1.005 - 1.030 [facility] Urobilinogen (U) [Mass/Vol] Normal Normal (0-1) mg/dL [facility] Volume, Urine 12 mL [facility] WBC LM.HPF (Urine sed) [#/Area] 0-2 [facility] Vital signson 08-11-2024 Heart rate 90 /min bpm [facility] Emergency Department Summary on 08-02-2024 Emergency Department Summary Normal [facility] Basic Metabolic Profile (BMP )on 07-31-2024 BUN Normal 7-18 [facility] Comment on above: Result Comment: Canc elled via OM: Order cancelled - Patient discharged Performed By: #### L 500.2500, L100.0100 ####[facility] [address] [place], [address] BUN/CRE Normal 10-20 [facility] Comment on above: Result Comment: Canc elled via OM: Order cancelled - Patient discharged Performed By: #### L 500.2500, L100.0100 ####[facility] [address] [place], [address] CA,Total Normal 8.5-10.1 [facility] Comment on above: Result Comment: Canc elled via OM: Order cancelled - Patient discharged Performed By: #### L 500.2500, L100.0100 ####[facility] [address] [place], [address] CL Normal 98-107 [facility] Comment on above: Result Comment: Canc elled via OM: Order cancelled - Patient discharged Performed By: #### L 500.2500, L100.0100 ####[facility] [address] [place], [address] CO2 Normal 21.0-32.0 [facility] Comment on above: Result Comment: Canc elled via OM: Order cancelled - Patient discharged Performed By: #### L 500.2500, L100.0100 ####[facility] [address] [place], [address] CREAT,SERUM Normal 0.55-1.02 [facility] Comment on above: Result Comment: Canc elled via OM: Order cancelled - Patient discharged Performed By: #### L 500.2500, L100.0100 ####[facility] [address] [place], [address] EST GFR Normal >60 [facility] Comment on above: Result Comment: Canc elled via OM: Order cancelled - Patient discharged Performed By: #### L 500.2500, L100.0100 ####[facility] [address] [place], [address] EST GFR - AA Normal >60 [facility] Comment on above: Result Comment: Canc elled via OM: Order cancelled - Patient discharged Performed By: #### L 500.2500, L100.0100 ####[facility] [address] [place], [address] GAP Normal 5-15 [facility] Comment on above: Result Comment: Canc elled via OM: Order cancelled - Patient discharged Performed By: #### L 500.2500, L100.0100 ####[facility] [address] [place], [address] GLU Normal 74-106 [facility] Comment on above: Result Comment: Canc elled via OM: Order cancelled - Patient discharged Performed By: #### L 500.2500, L100.0100 ####[facility] [address] [place], [address] Potassium Normal 3.5-5.1 [facility] Comment on above: Result Comment: Canc elled via OM: Order cancelled - Patient discharged Performed By: #### L 500.2500, L100.0100 ####[facility] [address] [place], [address] Basic Metabolic Profile (BMP) Normal 136-145 [facility] Comment on above: Result Comment: Canc elled via OM: Order cancelled - Patient discharged Performed By: #### L 500.2500, L100.0100 ####[facility] [address] [place], [address] CBC W/Diff, Automatedon 02- Absolute Neut Normal 2.0-7.7 [facility] Comment on above: Result Comment: Canc elled via OM: Order cancelled - Patient discharged Performed By: #### L 500.2500, L100.0100 ####[facility] [address] [place], [address] HCT Normal 37-47 [facility] Comment on above: Result Comment: Canc elled via OM: Order cancelled - Patient discharged Performed By: #### L 500.2500, L100.0100 ####[facility] [address] [place], [address] HGB Normal 12.0-15.0 [facility] Comment on above: Result Comment: Canc elled via OM: Order cancelled - Patient discharged Performed By: #### L 500.2500, L100.0100 ####[facility] [address] [place], [address] MCH Normal 27.0-32.0 [facility] Comment on above: Result Comment: Canc elled via OM: Order cancelled - Patient discharged Performed By: #### L 500.2500, L100.0100 ####[facility] [address] [place], [address] MCHC Normal 32-36 [facility] Comment on above: Result Comment: Canc elled via OM: Order cancelled - Patient discharged Performed By: #### L 500.2500, L100.0100 ####[facility] [address] [place], [address] MCV Normal 81-99 [facility] Comment on above: Result Comment: Canc elled via OM: Order cancelled - Patient discharged Performed By: #### L 500.2500, L100.0100 ####[facility] [address] [place], [address] NEUT% Normal 47-70 [facility] Comment on above: Result Comment: Canc elled via OM: Order cancelled - Patient discharged Performed By: #### L 500.2500, L100.0100 ####[facility] [address] [place], [address] PLT Normal 150-450 [facility] Comment on above: Result Comment: Canc elled via OM: Order cancelled - Patient discharged Performed By: #### L 500.2500, L100.0100 ####[facility] [address] [place], [address] RBC Normal 4.2-5.4 [facility] Comment on above: Result Comment: Canc elled via OM: Order cancelled - Patient discharged Performed By: #### L 500.2500, L100.0100 ####[facility] [address] [place], [address] RDW CV Normal 11.6-14.6 [facility] Comment on above: Result Comment: Canc elled via OM: Order cancelled - Patient discharged Performed By: #### L 500.2500, L100.0100 ####[facility] [address] [place], [address] RDW SD Normal 35.1-43.9 [facility] Comment on above: Result Comment: Canc elled via OM: Order cancelled - Patient discharged Performed By: #### L 500.2500, L100.0100 ####[facility] [address] [place], [address] WBC Normal 4.4-11.0 [facility] Comment on above: Result Comment: Canc elled via OM: Order cancelled - Patient discharged Performed By: #### L 500.2500, L100.0100 ####[facility] [address] [place], [address] Absolute lymphocyte countOrd ered By: Norbert Jansen on 07-30-2024 Lymphocytes Auto (Unsp spec) [#/Vol] 1.32 10*3/uL 0.83-4.51 [facility] Absolute neutrophil countOrd ered By: [facility] Inderjit on 07-30-2024 Neutrophils (Bld) [#/Vol] 2.1 10*3/uL 2.0-7.7 [facility] Automated lymphocyte count a s percentage of total leukocytesOrdered By: Norbert Inderjit on 07-30-2024 Lymphocytes/100 WBC Auto (Unsp spec) 33.0 % 19-41 [facility] Basic Metabolic Profile (BMP )on 07-30-2024 BUN/CRE 7.8 RATIO Low 10-20 [facility] Comment on above: Performed By: #### L 500.2500, L100.0100 ####[facility] [address] [place], [address] CA,Total 8.6 mg/dL Normal 8.5-10.1 [facility] Comment on above: Performed By: #### L 500.2500, L100.0100 ####[facility] [address] [place], [address] Chloride [Moles/Vol] 107 mmol/L Normal 98-107 [facility] Comment on above: Performed By: #### L 500.2500, L100.0100 ####[facility] [address] [place], [address] CO2 [Moles/Vol] 22.0 mmol/L Normal 21.0-32.0 [facility] Comment on above: Performed By: #### L 500.2500, L100.0100 ####[facility] [address] [place], [address] Creatinine [Mass/Vol] 0.64 mg/dL Normal 0.55-1.02 [facility] Comment on above: Result Comment: The validity of the calculated GFR GFRAA in patients over70 years has not been determined. Clinical correlation isessential. Performed By: #### L 500.2500, L100.0100 ####[facility] [address] [place], [address] ECRCL 99.47 ml/min Normal [facility] Comment on above: Performed By: #### L 500.2500, L100.0100 ####[facility] [address] [place], [address] EST GFR - AA 125 mL/min Normal >60 [facility] Comment on above: Result Comment: Afri can Libyan GFR Calc Performed By: #### L 500.2500, L100.0100 ####[facility] [address] [place], [address] GAP 7 Normal 5-15 [facility] Comment on above: Performed By: #### L 500.2500, L100.0100 ####[facility] [address] [place], [address] GFR/1.73 sq M.predicted among non-blacks MDRD (S/P/Bld) [Vol rate/Area] 103 mL/min/{1.73_m2} Normal >60 [facility] Comment on above: Result Comment: Non- GFR Calc Performed By: #### L 500.2500, L100.0100 ####[facility] [address] [place], [address] Glucose [Mass/Vol] 86 mg/dL Normal 74-106 [facility] Comment on above: Performed By: #### L 500.2500, L100.0100 ####[facility] [address] [place], [address] Potassium [Moles/Vol] 3.3 mmol/L Low 3.5-5.1 [facility] Comment on above: Performed By: #### L 500.2500, L100.0100 ####[facility] [address] [place], [address] Sodium [Moles/Vol] 137 mmol/L Normal 136-145 [facility] Comment on above: Performed By: #### L 500.2500, L100.0100 ####[facility] [address] [place], [address] Urea nitrogen [Mass/Vol] 5 mg/dL Low 7-18 [facility] Comment on above: Performed By: #### L 500.2500, L100.0100 ####[facility] [address] [place], [address] Basophil percentageOrdered B y: Norbert Jansen on 07-30-2024 Basophils/100 WBC (Bld) 0.8 % 0-1 [facility] Blood urea nitrogen (BUN)/cr eatinine ratioOrdered By: Norbert Jansen on 07-30-2024 Urea nitrogen/Creatinine [Mass ratio] 7.8 mg/mg Low 10- [facility] CBC W/Diff, Automatedon -07 10-2024 Absolute Lymph 1.32 X10 3/uL Normal 0.83-4.51 [facility] Comment on above: Performed By: #### L 500.2500, L100.0100 ####[facility] [address] [place], [address] Absolute Neut 2.1 X10 3/uL Normal 2.0-7.7 [facility] Comment on above: Performed By: #### L 500.2500, L100.0100 ####[facility] [address] [place], [address] Basophils/100 WBC (Bld) 0.8 % Normal 0-1 [facility] Comment on above: Performed By: #### L 500.2500, L100.0100 ####[facility] [address] [place], [address] Eosinophils/100 WBC (Bld) 2.8 % Normal 0-5 [facility] Comment on above: Performed By: #### L 500.2500, L100.0100 ####[facility] [address] [place], [address] Erythrocyte distribution width (RBC) [Ratio] 15.1 % High 11.6-14.6 [facility] Comment on above: Performed By: #### L 500.2500, L100.0100 ####[facility] [address] [place], [address] Hematocrit (Bld) [Volume fraction] 31.6 % Low 37-47 [facility] Comment on above: Performed By: #### L 500.2500, L100.0100 ####[facility] [address] [place], [address] Hemoglobin (Bld) [Mass/Vol] 10.0 g/dL Low 12.0-15.0 [facility] Comment on above: Performed By: #### L 500.2500, L100.0100 ####[facility] [address] [place], [address] IG% 0.300 Normal 0.0-0.9 [facility] Comment on above: Result Comment: IG% - Immature Granulocytes (promyelocytes, myelocytes andmetamyelocytes) > 1% indicates that a LEFT SHIFT is Present. Performed By: #### L 500.2500, L100.0100 ####[facility] [address] [place], [address] Lymphocytes/100 WBC (Bld) 33.0 % Normal 19-41 [facility] Comment on above: Performed By: #### L 500.2500, L100.0100 ####[facility] [address] [place], [address] MCH (RBC) [Entitic mass] 32.4 pg High 27.0-32.0 [facility] Comment on above: Performed By: #### L 500.2500, L100.0100 ####[facility] [address] [place], [address] MCHC (RBC) [Mass/Vol] 31.6 g/dL Low 32-36 [facility] Comment on above: Performed By: #### L 500.2500, L100.0100 ####[facility] [address] [place], [address] MCV (RBC) [Entitic vol] 102.3 fL High 81-99 [facility] Comment on above: Performed By: #### L 500.2500, L100.0100 ####[facility] [address] [place], [address] Monocytes/100 WBC (Bld) 10.3 % High 0-10 [facility] Comment on above: Performed By: #### L 500.2500, L100.0100 ####[facility] [address] [place], [address] Neutrophils/100 WBC (Bld) 52.8 % Normal 47-70 [facility] Comment on above: Performed By: #### L 500.2500, L100.0100 ####[facility] [address] [place], [address] Nucleated RBC (Bld) [#/Vol] 0 10*3/uL Normal 0-5 [facility] Comment on above: Performed By: #### L 500.2500, L100.0100 ####[facility] [address] [place], [address] Platelet mean volume (Bld) [Entitic vol] 11.3 fL Normal 6.2-12.0 [facility] Comment on above: Performed By: #### L 500.2500, L100.0100 ####[facility] [address] [place], [address] Platelets (Bld) [#/Vol] 90 10*3/uL Low 150-450 [facility] Comment on above: Performed By: #### L 500.2500, L100.0100 ####[facility] [address] [place], [address] RBC (Bld) [#/Vol] 3.09 10*6/uL Low 4.2-5.4 [facility] Comment on above: Performed By: #### L 500.2500, L100.0100 ####[facility] [address] [place], [address] RDW SD 56.2 fl High 35.1-43.9 [facility] Comment on above: Performed By: #### L 500.2500, L100.0100 ####[facility] [address] [place], [address] WBC (Bld) [#/Vol] 4.0 10*3/uL Low 4.4-11.0 [facility] Comment on above: Performed By: #### L 500.2500, L100.0100 ####[facility] [address] [place], [address] Carbon dioxide measurementOr dered By: Norbert Jansen on 07-30-2024 CO2 [Moles/Vol] 22.0 mmol/L 21.0-32.0 [facility] Chloride measurementOrdered By: Norbert Jansen on 07-30-2024 Chloride [Moles/Vol] 107 mmol/L 98-107 [facility] Discharge Instructionon 07-11 Discharge Instruction Normal [facility] Eosinophil percentageOrdered By: Norbert Jansen on 07-30-2024 Eosinophils/100 WBC (Bld) 2.8 % 0-5 [facility] Erythrocyte distribution wid th (RBC) [Ratio]Ordered By: Norbert Jansen on 07-30-2024 Erythrocyte distribution width (RBC) [Entitic vol] 56.2 fL High 35.1-43.9 [facility] Erythrocyte distribution wid th ratioOrdered By: Norbert Jansen on 07-30-2024 Erythrocyte distribution width (RBC) [Ratio] 15.1 % High 11.6-14.6 [facility] Erythrocyte distribution wid th standard deviationOrdered By: Norbert Jansen on 07-30-2024 Erythrocyte distribution width (RBC) [Ratio] 56.2 fl High 35.1-43.9 [facility] Estimated glomerular filtrat ion rate (GFR) AmericanOrdered By: Norbert Jansen on 07-30-2024 Estimated GFR (MDRD) Amer 125 mL/min >60 [facility] Comment on above: GFR Calc Estimation of creatinine tom aranceOrdered By: Norbert Jansen on 07-30-2024 Estimated Creatinine Clearance Calc 99.47 ml/min [facility] Glomerular filtration rate ( GFR) estimationOrdered By: Norbert Jansen on 07-30-2024 Estimated GFR (MDRD) Non-Af Amer 103 mL/min >60 [facility] Comment on above: Non- GFR Calc GFR/1.73 sq M.predicted among non-blacks MDRD (S/P/Bld) [Vol rate/Area] 103 mL/min/{1.73_m2} >60 [facility] Glucose measurementOrdered B y: Norbert Jansen on 07-30-2024 Glucose [Mass/Vol] 86 mg/dL 74-106 [facility] Hematocrit Auto (Bld) [Volum e fraction]Ordered By: Norbert Jansen on 07-30-2024 Hematocrit (Bld) [Volume fraction] 31.6 % Low 37-47 [facility] Hemoglobin measurementOrdere d By: Norbert Jansen on 07-30-2024 Hemoglobin (Bld) [Mass/Vol] 10.0 g/dL Low 12.0-15.0 [facility] Immature granulocytes/100 WB C Auto (Bld)Ordered By: Norbert Jansen on 07-30-2024 Immature granulocytes/100 WBC (Bld) 0.300 % 0.0-0.9 [facility] Comment on above: IG% - Immature Granu locytes (promyelocytes, myelocytes and metamyelocytes) > 1% indicates that a LEFT SHIFT is Present. Lymphocytes Auto (Unsp spec) [#/Vol]Ordered By: Norbert Jansen on 07-30-2024 Lymphocytes (Bld) [#/Vol] 1.32 10*3/uL 0.83-4.51 [facility] Lymphocytes/100 WBC Auto (Un sp spec)Ordered By: Norbert Jansen on 07-30-2024 Lymphocytes/100 WBC (Bld) 33.0 % 19-41 [facility] MCV (mean corpuscular volume ) determinationOrdered By: Norbert Jansen on 07-30-2024 MCV (RBC) [Entitic vol] 102.3 fL High 81-99 [facility] Mean corpuscular hemoglobin (MCH) determinationOrdered By: Norbert Jansen on 07-30-2024 MCH (RBC) [Entitic mass] 32.4 pg High 27.0-32.0 [facility] Mean corpuscular hemoglobin concentration (MCHC) determinationOrdered By: Norbert Jansen on 07-30-2024 MCHC (RBC) [Mass/Vol] 31.6 g/dL Low 32-36 [facility] Mean platelet volume determi nationOrdered By: Norbert Jansen on 07-30-2024 Platelet mean volume (Bld) [Entitic vol] 11.3 fL 6.2-12.0 [facility] Monocyte percentageOrdered B y: Norbert Jansen on 07-30-2024 Monocytes/100 WBC (Bld) 10.3 % High 0-10 [facility] Neutrophil percentageOrdered By: Norbert Jansen on 07-30-2024 Neutrophils/100 WBC (Bld) 52.8 % 47-70 [facility] Nucleated red blood cell per centageOrdered By: Norbert Jansen on 07-30-2024 Nucleated RBC/100 WBC (Bld) [Ratio] 0 % 0-5 [facility] Platelet countOrdered By: Star Jansen on 07-30-2024 Platelets (Bld) [#/Vol] 90 10*3/uL Low 150-450 [facility] Potassium measurementOrdered By: Norbert Jansen on 07-30-2024 Potassium [Moles/Vol] 3.3 mmol/L Low 3.5-5.1 [facility] RBC Auto (Bld) [#/Vol]Ordere d By: Norbert Jansen on 07-30-2024 RBC (Bld) [#/Vol] 3.09 10*6/uL Low 4.2-5.4 [facility] Serum anion gap measurementO rdered By: Norbert Jansen on 07-30-2024 Anion gap [Moles/Vol] 7 mmol/L 5-15 [facility] Serum or plasma calcium ferdinand urement (mass/volume)Ordered By: Norbert Jansen on 07-30-2024 Calcium [Mass/Vol] 8.6 mg/dL 8.5-10.1 [facility] Serum or plasma creatinine m easurement (mass/volume)Ordered By: Norbert Jansen on 07-30-2024 Creatinine [Mass/Vol] 0.64 mg/dL 0.55-1.02 [facility] Comment on above: The validity of the calculated GFR & GFRAA in patients over 70 years has not been determined. Clinical correlation is essential. Serum or plasma urea nitroge n measurement (mass/volume)Ordered By: Norbert Jansen on 07-30-2024 Urea nitrogen [Mass/Vol] 5 mg/dL Low 7-18 [facility] Sodium levelOrdered By: Annie Jansen on 07-30-2024 Sodium [Moles/Vol] 137 mmol/L 136-145 [facility] White blood cell (WBC) count Ordered By: Nobrert Jansen on 07-30-2024 WBC (Bld) [#/Vol] 4.0 10*3/uL Low 4.4-11.0 [facility] Albumin to globulin ratioOrd ered By: Raina Palomares on 07-28-2024 Albumin/Globulin [Mass ratio] 0.8 {ratio} Low 0.9-2.4 [facility] Bilirubin, totalOrdered By: Raina Palomares on 07-28-2024 Bilirubin [Mass/Vol] 2.00 mg/dL High 0.20-1.00 [facility] Comment on above: For patients on eltr ombopag therapy, use of Dimension [place] TBIL is not recommended. CBC W/Diff, Automatedon 07-10 Absolute Lymph 0.68 X10 3/uL Low 0.83-4.51 [facility] Comment on above: Performed By: #### L 100.0100, L500.4050 ####[facility] [address] [place], [address] Absolute Neut 3.0 X10 3/uL Normal 2.0-7.7 [facility] Comment on above: Performed By: #### L 100.0100, L500.4050 ####[facility] [address] [place], [address] Basophils/100 WBC (Bld) 0.2 % Normal 0-1 [facility] Comment on above: Performed By: #### L 100.0100, L500.4050 ####[facility] [address] [place], [address] Eosinophils/100 WBC (Bld) 0.0 % Normal 0-5 [facility] Comment on above: Performed By: #### L 100.0100, L500.4050 ####[facility] [address] [place], [address] Erythrocyte distribution width (RBC) [Ratio] 14.9 % High 11.6-14.6 [facility] Comment on above: Performed By: #### L 100.0100, L500.4050 ####[facility] [address] [place], [address] Hematocrit (Bld) [Volume fraction] 32.6 % Low 37-47 [facility] Comment on above: Performed By: #### L 100.0100, L500.4050 ####[facility] [address] [place], [address] Hemoglobin (Bld) [Mass/Vol] 10.8 g/dL Low 12.0-15.0 [facility] Comment on above: Performed By: #### L 100.0100, L500.4050 ####[facility] [address] [place], [address] IG% 0.200 Normal 0.0-0.9 [facility] Comment on above: Result Comment: IG% - Immature Granulocytes (promyelocytes, myelocytes andmetamyelocytes) > 1% indicates that a LEFT SHIFT is Present. Performed By: #### L 100.0100, L500.4050 ####[facility] [address] [place], [address] Lymphocytes/100 WBC (Bld) 16.7 % Low 19-41 [facility] Comment on above: Performed By: #### L 100.0100, L500.4050 ####[facility] [address] [place], [address] MCH (RBC) [Entitic mass] 33.0 pg High 27.0-32.0 [facility] Comment on above: Performed By: #### L 100.0100, L500.4050 ####[facility] [address] [place], [address] MCHC (RBC) [Mass/Vol] 33.1 g/dL Normal 32-36 [facility] Comment on above: Performed By: #### L 100.0100, L500.4050 ####[facility] [address] [place], [address] MCV (RBC) [Entitic vol] 99.7 fL High 81-99 [facility] Comment on above: Performed By: #### L 100.0100, L500.4050 ####[facility] [address] [place], [address] Monocytes/100 WBC (Bld) 7.9 % Normal 0-10 [facility] Comment on above: Performed By: #### L 100.0100, L500.4050 ####[facility] [address] [place], [address] Neutrophils/100 WBC (Bld) 75.0 % High 47-70 [facility] Comment on above: Performed By: #### L 100.0100, L500.4050 ####[facility] [address] [place], [address] Nucleated RBC (Bld) [#/Vol] 0 10*3/uL Normal 0-5 [facility] Comment on above: Performed By: #### L 100.0100, L500.4050 ####[facility] [address] [place], [address] Platelet mean volume (Bld) [Entitic vol] 10.5 fL Normal 6.2-12.0 [facility] Comment on above: Performed By: #### L 100.0100, L500.4050 ####[facility] [address] [place], [address] Platelets (Bld) [#/Vol] 102 10*3/uL Low 150-450 [facility] Comment on above: Performed By: #### L 100.0100, L500.4050 ####[facility] [address] [place], [address] RBC (Bld) [#/Vol] 3.27 10*6/uL Low 4.2-5.4 [facility] Comment on above: Performed By: #### L 100.0100, L500.4050 ####[facility] [address] [place], [address] RDW SD 54.7 fl High 35.1-43.9 [facility] Comment on above: Performed By: #### L 100.0100, L500.4050 ####[facility] [address] [place], [address] WBC (Bld) [#/Vol] 4.1 10*3/uL Low 4.4-11.0 [facility] Comment on above: Performed By: #### L 100.0100, L500.4050 ####[facility] [address] [place], [address] Comprehensive Metabolic Prof ilon 07-28-2024 Albumin [Mass/Vol] 3.2 g/dL Normal 3.2-5.0 [facility] Comment on above: Performed By: #### L 100.0100, L500.4050 ####[facility] [address] [place], [address] Albumin/Globulin [Mass ratio] 0.8 {ratio} Low 0.9-2.4 [facility] Comment on above: Performed By: #### L 100.0100, L500.4050 ####[facility] [address] [place], [address] ALK P 111 U/L Normal 45-117 [facility] Comment on above: Performed By: #### L 100.0100, L500.4050 ####[facility] [address] [place], [address] ALT [Catalytic activity/Vol] 48 U/L Normal 13-56 [facility] Comment on above: Performed By: #### L 100.0100, L500.4050 ####[facility] [address] [place], [address] AST [Catalytic activity/Vol] 86 U/L High 15-37 [facility] Comment on above: Performed By: #### L 100.0100, L500.4050 ####[facility] [address] [place], [address] Bilirubin [Mass/Vol] 2.00 mg/dL High 0.20-1.00 [facility] Comment on above: Result Comment: For patients on eltrombopag therapy, use of Dimension [place] TBIL is not recommended. Performed By: #### L 100.0100, L500.4050 ####[facility] [address] [place], [address] BUN/CRE 12.0 RATIO Normal 10-20 [facility] Comment on above: Performed By: #### L 100.0100, L500.4050 ####[facility] [address] [place], [address] CA,Total 8.8 mg/dL Normal 8.5-10.1 [facility] Comment on above: Performed By: #### L 100.0100, L500.4050 ####[facility] [address] [place], [address] Chloride [Moles/Vol] 102 mmol/L Normal 98-107 [facility] Comment on above: Performed By: #### L 100.0100, L500.4050 ####[facility] [address] [place], [address] CO2 [Moles/Vol] 23.0 mmol/L Normal 21.0-32.0 [facility] Comment on above: Performed By: #### L 100.0100, L500.4050 ####[facility] [address] [place], [address] Creatinine [Mass/Vol] 0.58 mg/dL Normal 0.55-1.02 [facility] Comment on above: Result Comment: The validity of the calculated GFR GFRAA in patients over70 years has not been determined. Clinical correlation isessential. Performed By: #### L 100.0100, L500.4050 ####[facility] [address] [place], [address] ECRCL 109.76 ml/min Normal [facility] Comment on above: Performed By: #### L 100.0100, L500.4050 ####[facility] [address] [place], [address] EST GFR - AA 138 mL/min Normal >60 [facility] Comment on above: Result Comment: Afri can Libyan GFR Calc Performed By: #### L 100.0100, L500.4050 ####[facility] [address] [place], [address] GAP 11 Normal 5-15 [facility] Comment on above: Performed By: #### L 100.0100, L500.4050 ####[facility] [address] [place], [address] GFR/1.73 sq M.predicted among non-blacks MDRD (S/P/Bld) [Vol rate/Area] 114 mL/min/{1.73_m2} Normal >60 [facility] Comment on above: Result Comment: Non- GFR Calc Performed By: #### L 100.0100, L500.4050 ####[facility] [address] [place], [address] Globulin (S) [Mass/Vol] 3.9 g/dL Normal 2.2-4.2 [facility] Comment on above: Performed By: #### L 100.0100, L500.4050 ####[facility] [address] [place], [address] Glucose [Mass/Vol] 105 mg/dL Normal 74-106 [facility] Comment on above: Result Comment: Fast ing Glucose result from 100 to 125 mg/dLsuggests IMPAIRED HOMEOSTASIS per A.D.A. criteria. Performed By: #### L 100.0100, L500.4050 ####[facility] [address] [place], [address] Potassium [Moles/Vol] 3.3 mmol/L Low 3.5-5.1 [facility] Comment on above: Performed By: #### L 100.0100, L500.4050 ####[facility] [address] [place], [address] Sodium [Moles/Vol] 136 mmol/L Normal 136-145 [facility] Comment on above: Performed By: #### L 100.0100, L500.4050 ####[facility] [address] [place], [address] T PROT 7.1 g/dL Normal 6.4-8.2 [facility] Comment on above: Performed By: #### L 100.0100, L500.4050 ####[facility] [address] [place], [address] Urea nitrogen [Mass/Vol] 7 mg/dL Normal 7-18 [facility] Comment on above: Performed By: #### L 100.0100, L500.4050 ####[facility] [address] [place], [address] HH, Hemoglobin AND Hematocri ton 07-28-2024 Hematocrit (Bld) [Volume fraction] 31.8 % Low 37-47 [facility] Comment on above: Performed By: #### L 100.0600 ####[facility] [address] [place], [address] Hemoglobin (Bld) [Mass/Vol] 10.7 g/dL Low 12.0-15.0 [facility] Comment on above: Performed By: #### L 100.0600 ####[facility] [address] [place], [address] Laboratory - Chemistry and C hemistry - challengeOrdered By: Raina Palomares on 07-28-2024 AST [Catalytic activity/Vol] 86 U/L High 15-37 [facility] Magnesiumon 07-28-2024 Magnesium [Mass/Vol] 2.2 mg/dL Normal 1.6-2.6 [facility] Comment on above: Performed By: #### L 501.2300, L501.5200 ####[facility] [address] [place], [address] Magnesium measurementOrdered By: Raina Palomares on 07-28-2024 Magnesium [Mass/Vol] 2.2 mg/dL 1.6-2.6 [facility] No Panel InformationOrdered By: Raina Marielle on 07-28-2024 86 U/L High 15-37 [facility] Phosphoruson 07-28-2024 Phosphate [Mass/Vol] 3.8 mg/dL Normal 2.5-4.9 [facility] Comment on above: Performed By: #### L 501.2300, L501.5200 ####[facility] [address] [place], [address] Phosphorus measurementOrdere d By: [facility] Marielle on 07-28-2024 Phosphorus Level 3.8 mg/dL 2.5-4.9 [facility] Serum globulin measurementOr dered By: Raina Marielle on 07-28-2024 Globulin (S) [Mass/Vol] 3.9 g/dL 2.2-4.2 [facility] Serum or plasma alanine boyce otransferase (ALT) measurementOrdered By: Raina Marielle on 07-28-2024 ALT [Catalytic activity/Vol] 48 U/L 13-56 [facility] Serum or plasma albumin ferdinand urement (mass/volume)Ordered By: [facility] Marielle on 07-28-2024 Albumin [Mass/Vol] 3.2 g/dL 3.2-5.0 [facility] Serum or plasma alkaline garry sphatase measurementOrdered By: Raina Marielle on 07-28-2024 ALP [Catalytic activity/Vol] 111 U/L 45-117 [facility] Total proteinOrdered By: Aut jeovanny Palomares on 07-28-2024 Protein [Mass/Vol] 7.1 g/dL 6.4-8.2 [facility] Alcohol, Blood (Medical)-Ser umon 07-27-2024 SERUM ETOH < 3.0 Normal [facility] Comment on above: Result Comment: The serum:whole blood ethanol ratio is approximately 1.14and varies slightly with hematocrit.Medical Alcohol reference interval and critical value innon-tolerant individuals; 50 - 100 Impairment 100 Intoxication 100 - 250 Severe Poisoning 250 - 400 Deep/possible fatal coma Performed By: #### L 501.9100, L505.5000, L501.2450, L500.2500, L700.6800, L100.0100, L500.3400 ####[facility] [address] [place], [address] Basic Metabolic Profile (BMP )on 07-27-2024 BUN/CRE 9.3 RATIO Low 10-20 [facility] Comment on above: Performed By: #### L 501.9100, L505.5000, L501.2450, L500.2500, L700.6800, L100.0100, L500.3400 ####[facility] [address] [place], [address] CA,Total 9.3 mg/dL Normal 8.5-10.1 [facility] Comment on above: Performed By: #### L 501.9100, L505.5000, L501.2450, L500.2500, L700.6800, L100.0100, L500.3400 ####[facility] [address] [place], [address] Chloride [Moles/Vol] 103 mmol/L Normal 98-107 [facility] Comment on above: Performed By: #### L 501.9100, L505.5000, L501.2450, L500.2500, L700.6800, L100.0100, L500.3400 ####[facility] [address] [place], [address] CO2 [Moles/Vol] 17.0 mmol/L Low 21.0-32.0 [facility] Comment on above: Performed By: #### L 501.9100, L505.5000, L501.2450, L500.2500, L700.6800, L100.0100, L500.3400 ####[facility] [address] [place], [address] Creatinine [Mass/Vol] 0.75 mg/dL Normal 0.55-1.02 [facility] Comment on above: Result Comment: The validity of the calculated GFR GFRAA in patients over70 years has not been determined. Clinical correlation isessential. Performed By: #### L 501.9100, L505.5000, L501.2450, L500.2500, L700.6800, L100.0100, L500.3400 ####[facility] [address] [place], [address] ECRCL 85.59 ml/min Normal [facility] Comment on above: Performed By: #### L 501.9100, L505.5000, L501.2450, L500.2500, L700.6800, L100.0100, L500.3400 ####[facility] [address] [place], [place], [id number] EST GFR - AA 104 mL/min Normal >60 [facility] Comment on above: Result Comment: Afri can Libyan GFR Calc Performed By: #### L 501.9100, L505.5000, L501.2450, L500.2500, L700.6800, L100.0100, L500.3400 ####[facility] [address] [place], [place], [id number] GAP 18 High 5-15 [facility] Comment on above: Performed By: #### L 501.9100, L505.5000, L501.2450, L500.2500, L700.6800, L100.0100, L500.3400 ####[facility] [address] [place], [place], [id number] GFR/1.73 sq M.predicted among non-blacks MDRD (S/P/Bld) [Vol rate/Area] 86 mL/min/{1.73_m2} Normal >60 [facility] Comment on above: Result Comment: Non- GFR Calc Performed By: #### L 501.9100, L505.5000, L501.2450, L500.2500, L700.6800, L100.0100, L500.3400 ####[facility] [address] [place], [address] Glucose [Mass/Vol] 176 mg/dL High 74-106 [facility] Comment on above: Result Comment: Fast ing Glucose result greater than or equal to 126 mg/dLsuggests DIABETES MELLITUS per A.D.A. criteria. Performed By: #### L 501.9100, L505.5000, L501.2450, L500.2500, L700.6800, L100.0100, L500.3400 ####[facility] [address] [place], [address] Potassium [Moles/Vol] 3.4 mmol/L Low 3.5-5.1 [facility] Comment on above: Performed By: #### L 501.9100, L505.5000, L501.2450, L500.2500, L700.6800, L100.0100, L500.3400 ####[facility] [address] [place], [address] Sodium [Moles/Vol] 138 mmol/L Normal 136-145 [facility] Comment on above: Performed By: #### L 501.9100, L505.5000, L501.2450, L500.2500, L700.6800, L100.0100, L500.3400 ####[facility] [address] [place], [address] Urea nitrogen [Mass/Vol] 7 mg/dL Normal 7-18 [facility] Comment on above: Performed By: #### L 501.9100, L505.5000, L501.2450, L500.2500, L700.6800, L100.0100, L500.3400 ####[facility] [address] [place], [address] Beta HCG ( test) Ql Ordered By: Ryder Portillo on 07-27-2024 Serum Test, Qualitative Negative [facility] Bilirubin directOrdered By: Ryder Portillo on 07-27-2024 Bilirubin.direct [Mass/Vol] 1.09 mg/dL High 0.00-0.30 [facility] Comment on above: Performed By: #### L 501.9100, L505.5000, L501.2450, L500.2500, L700.6800, L100.0100, L500.3400 ####[facility] [address] [place], [address] Brain/Head without Contrasto n 07-27-2024 Brain/Head without Contrast Normal [facility] CBC W/Diff, Automatedon 07-10 Absolute Lymph 0.57 X10 3/uL Low 0.83-4.51 [facility] Comment on above: Performed By: #### L 501.9100, L505.5000, L501.2450, L500.2500, L700.6800, L100.0100, L500.3400 ####[facility] [address] [place], [address] Absolute Neut 3.2 X10 3/uL Normal 2.0-7.7 [facility] Comment on above: Performed By: #### L 501.9100, L505.5000, L501.2450, L500.2500, L700.6800, L100.0100, L500.3400 ####[facility] [address] [place], [address] Basophils/100 WBC (Bld) 0.5 % Normal 0-1 [facility] Comment on above: Performed By: #### L 501.9100, L505.5000, L501.2450, L500.2500, L700.6800, L100.0100, L500.3400 ####[facility] [address] [place], [address] Eosinophils/100 WBC (Bld) 0.3 % Normal 0-5 [facility] Comment on above: Performed By: #### L 501.9100, L505.5000, L501.2450, L500.2500, L700.6800, L100.0100, L500.3400 ####[facility] [address] [place], [address] Erythrocyte distribution width (RBC) [Ratio] 14.6 % Normal 11.6-14.6 [facility] Comment on above: Performed By: #### L 501.9100, L505.5000, L501.2450, L500.2500, L700.6800, L100.0100, L500.3400 ####[facility] [address] [place], [address] Hematocrit (Bld) [Volume fraction] 37.0 % Normal 37-47 [facility] Comment on above: Performed By: #### L 501.9100, L505.5000, L501.2450, L500.2500, L700.6800, L100.0100, L500.3400 ####[facility] [address] [place], [place], [id number] Hemoglobin (Bld) [Mass/Vol] 12.3 g/dL Normal 12.0-15.0 [facility] Comment on above: Performed By: #### L 501.9100, L505.5000, L501.2450, L500.2500, L700.6800, L100.0100, L500.3400 ####[facility] [address] [place], [address] IG% 0.500 Normal 0.0-0.9 [facility] Comment on above: Result Comment: IG% - Immature Granulocytes (promyelocytes, myelocytes andmetamyelocytes) > 1% indicates that a LEFT SHIFT is Present. Performed By: #### L 501.9100, L505.5000, L501.2450, L500.2500, L700.6800, L100.0100, L500.3400 ####[facility] [address] [place], [address] Lymphocytes/100 WBC (Bld) 14.3 % Low 19-41 [facility] Comment on above: Performed By: #### L 501.9100, L505.5000, L501.2450, L500.2500, L700.6800, L100.0100, L500.3400 ####[facility] [address] [place], [address] MCH (RBC) [Entitic mass] 32.8 pg High 27.0-32.0 [facility] Comment on above: Performed By: #### L 501.9100, L505.5000, L501.2450, L500.2500, L700.6800, L100.0100, L500.3400 ####[facility] [address] [place], [address] MCHC (RBC) [Mass/Vol] 33.2 g/dL Normal 32-36 [facility] Comment on above: Performed By: #### L 501.9100, L505.5000, L501.2450, L500.2500, L700.6800, L100.0100, L500.3400 ####[facility] [address] [place], [address] MCV (RBC) [Entitic vol] 98.7 fL Normal 81-99 [facility] Comment on above: Performed By: #### L 501.9100, L505.5000, L501.2450, L500.2500, L700.6800, L100.0100, L500.3400 ####[facility] [address] [place], [address] Monocytes/100 WBC (Bld) 5.5 % Normal 0-10 [facility] Comment on above: Performed By: #### L 501.9100, L505.5000, L501.2450, L500.2500, L700.6800, L100.0100, L500.3400 ####[facility] [address] [place], [address] Neutrophils/100 WBC (Bld) 78.9 % High 47-70 [facility] Comment on above: Performed By: #### L 501.9100, L505.5000, L501.2450, L500.2500, L700.6800, L100.0100, L500.3400 ####[facility] [address] [place], [address] Nucleated RBC (Bld) [#/Vol] 0 10*3/uL Normal 0-5 [facility] Comment on above: Performed By: #### L 501.9100, L505.5000, L501.2450, L500.2500, L700.6800, L100.0100, L500.3400 ####[facility] [address] [place], [address] Platelet mean volume (Bld) [Entitic vol] 10.7 fL Normal 6.2-12.0 [facility] Comment on above: Performed By: #### L 501.9100, L505.5000, L501.2450, L500.2500, L700.6800, L100.0100, L500.3400 ####[facility] [address] [place], [address] Platelets (Bld) [#/Vol] 127 10*3/uL Low 150-450 [facility] Comment on above: Performed By: #### L 501.9100, L505.5000, L501.2450, L500.2500, L700.6800, L100.0100, L500.3400 ####[facility] [address] [place], [address] RBC (Bld) [#/Vol] 3.75 10*6/uL Low 4.2-5.4 [facility] Comment on above: Performed By: #### L 501.9100, L505.5000, L501.2450, L500.2500, L700.6800, L100.0100, L500.3400 ####[facility] [address] [place], [address] RDW SD 53.9 fl High 35.1-43.9 [facility] Comment on above: Performed By: #### L 501.9100, L505.5000, L501.2450, L500.2500, L700.6800, L100.0100, L500.3400 ####[facility] [address] [place], [address] WBC (Bld) [#/Vol] 4.0 10*3/uL Low 4.4-11.0 [facility] Comment on above: Performed By: #### L 501.9100, L505.5000, L501.2450, L500.2500, L700.6800, L100.0100, L500.3400 ####[facility] [address] [place], [address] H AND P Exam - Hospitaliston 07-27-2024 H&P Exam - Hospitalist Normal [facility] Lipase measurementOrdered By : Ryder Portillo on 07-27-2024 Lipase [Catalytic activity/Vol] 17 U/L Low 73-393 [facility] Comment on above: Performed By: #### L 501.9100, L505.5000, L501.2450, L500.2500, L700.6800, L100.0100, L500.3400 ####[facility] [address] [place], [address] Liver Profileon 07-27-2024 Albumin [Mass/Vol] 3.6 g/dL Normal 3.2-5.0 [facility] Comment on above: Performed By: #### L 501.9100, L505.5000, L501.2450, L500.2500, L700.6800, L100.0100, L500.3400 ####[facility] [address] [place], [address] ALK P 134 U/L High 45-117 [facility] Comment on above: Performed By: #### L 501.9100, L505.5000, L501.2450, L500.2500, L700.6800, L100.0100, L500.3400 ####[facility] [address] [place], [address] ALT [Catalytic activity/Vol] 59 U/L High 13-56 [facility] Comment on above: Performed By: #### L 501.9100, L505.5000, L501.2450, L500.2500, L700.6800, L100.0100, L500.3400 ####[facility] [address] [place], [address] AST [Catalytic activity/Vol] 142 U/L High 15-37 [facility] Comment on above: Performed By: #### L 501.9100, L505.5000, L501.2450, L500.2500, L700.6800, L100.0100, L500.3400 ####[facility] [address] [place], [address] Bilirubin [Mass/Vol] 3.50 mg/dL High 0.20-1.00 [facility] Comment on above: Result Comment: For patients on eltrombopag therapy, use of Dimension [place] TBIL is not recommended. Performed By: #### L 501.9100, L505.5000, L501.2450, L500.2500, L700.6800, L100.0100, L500.3400 ####[facility] [address] [place], [address] Globulin (S) [Mass/Vol] 4.4 g/dL High 2.2-4.2 [facility] Comment on above: Performed By: #### L 501.9100, L505.5000, L501.2450, L500.2500, L700.6800, L100.0100, L500.3400 ####[facility] [address] [place], [address] T PROT 8.0 g/dL Normal 6.4-8.2 [facility] Comment on above: Performed By: #### L 501.9100, L505.5000, L501.2450, L500.2500, L700.6800, L100.0100, L500.3400 ####[facility] [address] [place], [address] Magnesiumon 07-27-2024 Magnesium [Mass/Vol] 1.1 mg/dL Low 1.6-2.6 [facility] Comment on above: Order Comment: Comme nts: May add to ED labsComments: may add to ED labs Performed By: #### L 501.5200, L501.2300 ####[facility] [address] [place], [address] Methadone, urineOrdered By: Ryder Portillo on 07-27-2024 Urine Methadone Screen Negative < 300 ng/mL [facility] No Panel InformationOrdered By: Ryder Portillo on 07-27-2024 Urine Drug Screen Comment [facility] Comment on above: CONFIRMATORY TESTING FOR ALL POSITIVE URINE DRUG SCREENRESULTS WILL ONLY BE SENT OUT UPON PHYSICIAN ORDER. VISTA Urine Drug Screen methods provide only preliminaryanalytical test results. A more specific alternate chemicalmethod must be used in order to obtain a confirmedanalytical result. Gas chromatography/mass spectrometery(GC/MS) is the preferred confirmatory method. Clinicalconsideration and professional judgement should be appliedto any drug of abuse test result, particularly whenpreliminary positive results are used. URINE TCA TESTING MUST BE ORDERED SEPARATELY. USE TESTMNEMONIC: [facility] Phosphoruson 07-27-2024 Phosphate [Mass/Vol] 2.4 mg/dL Low 2.5-4.9 [facility] Comment on above: Order Comment: Comme nts: May add to ED labsComments: may add to ED labs Performed By: #### L 501.5200, L501.2300 ####[facility] [address] [place], [place], [address] ,Serum,hCG Quali.on 07-27-2024 HCG, SERUM QUAL Negative Normal [facility] Comment on above: Performed By: #### L 501.9100, L505.5000, L501.2450, L500.2500, L700.6800, L100.0100, L500.3400 ####[facility] [address] [place], [address] Quantitative urine opiates m easurementOrdered By: Ryder Portillo on 07-27-2024 Opiates Ql (U) Negative < 300 ng/mL [facility] Serum beta-hCG test, qualita tiveOrdered By: Ryder Portillo on 07-27-2024 Beta HCG ( test) Ql Negative [facility] Serum ethanol measurementOrd ered By: Ryder Portillo on 07-27-2024 Ethyl Alcohol Level < 3.0 mg/dL [facility] Comment on above: The serum:whole bloo d ethanol ratio is approximately 1.14and varies slightly with hematocrit. Medical Alcohol reference interval and critical value innon-tolerant individuals; 50 - 100 Impairment 100 Intoxication 100 - 250 Severe Poisoning 250 - 400 Deep/possible fatal coma Urine Drug Screen (VISTA)on 07-27-2024 AMPHETAMINES Negative Normal <1000 ng/mL [facility] Comment on above: Performed By: #### L 501.9100, L505.5000, L501.2450, L500.2500, L700.6800, L100.0100, L500.3400 ####[facility] [address] [place], [address] BARBITIURATES Positive Abnormal < 200 ng/mL [facility] Comment on above: Performed By: #### L 501.9100, L505.5000, L501.2450, L500.2500, L700.6800, L100.0100, L500.3400 ####[facility] [address] [place], [place], [phone] BENZODIAZIPINE Negative Normal < 200 ng/mL [facility] Comment on above: Performed By: #### L 501.9100, L505.5000, L501.2450, L500.2500, L700.6800, L100.0100, L500.3400 ####[facility] [address] [place] [address] COCAINE Negative Normal < 300 ng/mL [facility] Comment on above: Performed By: #### L 501.9100, L505.5000, L501.2450, L500.2500, L700.6800, L100.0100, L500.3400 ####[facility] [address] [place], [place], [phone] ECSTACY Negative Normal < 500 ng/mL [facility] Comment on above: Performed By: #### L 501.9100, L505.5000, L501.2450, L500.2500, L700.6800, L100.0100, L500.3400 ####[facility] [address] [place], [place], [phone] METHADONE Negative Normal < 300 ng/mL [facility] Comment on above: Performed By: #### L 501.9100, L505.5000, L501.2450, L500.2500, L700.6800, L100.0100, L500.3400 ####[facility] [address] [place] [address] OPIATES Negative Normal < 300 ng/mL [facility] Comment on above: Performed By: #### L 501.9100, L505.5000, L501.2450, L500.2500, L700.6800, L100.0100, L500.3400 ####[facility] [address] [place], [place], [phone] PCP Negative Normal < 25 ng/mL [facility] Comment on above: Performed By: #### L 501.9100, L505.5000, L501.2450, L500.2500, L700.6800, L100.0100, L500.3400 ####[facility] [address] [place], [place], [id number] THC Positive Abnormal < 50 ng/mL [facility] Comment on above: Performed By: #### L 501.9100, L505.5000, L501.2450, L500.2500, L700.6800, L100.0100, L500.3400 ####[facility] [address] [place], [place], [phone] VISTA UDS PH 6 Normal [facility] Comment on above: Performed By: #### L 501.9100, L505.5000, L501.2450, L500.2500, L700.6800, L100.0100, L500.3400 ####[facility] [address] [place], [place], [address] Urine amphetamine measuremen tOrdered By: Ryder Portillo on 07-27-2024 Amphetamines Ql (U) Negative <1000 ng/mL [facility] Urine barbiturates measureme ntOrdered By: Ryder Portillo on 07-27-2024 Urine Barbiturates Screen Positive High < 200 ng/mL [facility] Urine benzodiazepine levelOr dered By: Ryder Portillo on 07-27-2024 Benzodiazepines Ql (U) Negative < 200 ng/mL [facility] Urine cocaine levelOrdered B y: Ryder Portillo on 07-27-2024 Cocaine Ql (U) Negative < 300 ng/mL [facility] Urine sbggm-6-ixpydrngbhustv abinol (THC) measurementOrdered By: Ryder Portillo on 07-27-2024 Cannabinoids Screen Ql (U) Positive High < 50 ng/mL [facility] Urine methylenedioxymethamph etamine (MDMA) measurementOrdered By: Ryder Portillo on 07-27-2024 MDMA (Ecstasy) Screen Negative < 500 ng/mL [facility] Urine phencyclidine (PCP) de tectionOrdered By: Ryder Portillo on 07-27-2024 Phencyclidine Ql (U) Negative < 25 ng/mL [facility] CBC-Complete Blood Cnt No Di ffon 07-12-2024 PATH REV Reviewed Normal [facility] Comment on above: Order Comment: MARKE DLY DECREASED PLATELETS1+ POLYCHROMASIA Result Comment: Panc ytopenia.Leukopenia and neutropenia.Macrocytic anemia.MARKED Thrombocytopenia.Clinical correlation necessary.Hammad Loyola M.D. 07/12/24 AMENDED REPORT 07/12/24 1405 PATH REV previously reported as: October foll Performed By: #### L 100.0500, L501.2300, L500.2500, L501.5200 ####[facility] [address] [place], [place], [id number] PATH REV Reviewed Normal [facility] Comment on above: Result Comment: Panc ytopenia.LEUKOPENIAMacrocytic anemia.MARKED Thrombocytopenia.Clinical correlation necessary.Hammad Loyola M.D. 07/12/24 AMENDED REPORT 07/12/24 1403 PATH REV previously reported as: October foll Performed By: #### L 500.2500, L100.0500, L501.5200, L501.2300, L100.4500 ####[facility] [address] [place], [place], [phone] Internal Medicine Office Vis iton 07-12-2024 Internal Medicine Office Visit Normal [facility] Urine Cultureon 07-11-2024 URC Culture exhibits no growth. Normal [facility] Comment on above: Performed By: #### M 100.2200 ####[facility] [address] [place], [address] Basic Metabolic Profile (BMP )on 07-10-2024 BUN/CRE 11.1 RATIO Normal 10-20 [facility] Comment on above: Performed By: #### L 100.0500, L501.2300, L500.2500, L501.5200 ####[facility] [address] [place], [address] CA,Total 8.1 mg/dL Low 8.5-10.1 [facility] Comment on above: Performed By: #### L 100.0500, L501.2300, L500.2500, L501.5200 ####[facility] [address] [place], [address] Chloride [Moles/Vol] 110 mmol/L High 98-107 [facility] Comment on above: Performed By: #### L 100.0500, L501.2300, L500.2500, L501.5200 ####[facility] [address] [place], [address] CO2 [Moles/Vol] 19.0 mmol/L Low 21.0-32.0 [facility] Comment on above: Performed By: #### L 100.0500, L501.2300, L500.2500, L501.5200 ####[facility] [address] [place], [address] Creatinine [Mass/Vol] 0.72 mg/dL Normal 0.55-1.02 [facility] [facility] Comment on above: Result Comment: The validity of the calculated GFR GFRAA in patients over70 years has not been determined. Clinical correlation isessential. Performed By: #### L 100.0500, L501.2300, L500.2500, L501.5200 ####[facility] [address] [place], [address] ECRCL 89.10 ml/min Normal [facility] Comment on above: Performed By: #### L 100.0500, L501.2300, L500.2500, L501.5200 ####[facility] [address] [place], [address] EST GFR - AA 109 mL/min Normal >60 [facility] Comment on above: Result Comment: Afri can Libyan GFR Calc Performed By: #### L 100.0500, L501.2300, L500.2500, L501.5200 ####[facility] [address] [place], [address] GAP 8 Normal 5-15 [facility] Comment on above: Performed By: #### L 100.0500, L501.2300, L500.2500, L501.5200 ####[facility] [address] [place], [address] GFR/1.73 sq M.predicted among non-blacks MDRD (S/P/Bld) [Vol rate/Area] 90 mL/min/{1.73_m2} Normal >60 [facility] Comment on above: Result Comment: Non- GFR Calc Performed By: #### L 100.0500, L501.2300, L500.2500, L501.5200 ####[facility] [address] [place], [address] Glucose [Mass/Vol] 125 mg/dL High 74-106 [facility] Comment on above: Result Comment: Fast ing Glucose result from 100 to 125 mg/dLsuggests IMPAIRED HOMEOSTASIS per A.D.A. criteria. Performed By: #### L 100.0500, L501.2300, L500.2500, L501.5200 ####[facility] [address] [place], [address] Potassium [Moles/Vol] 3.4 mmol/L Low 3.5-5.1 [facility] Comment on above: Performed By: #### L 100.0500, L501.2300, L500.2500, L501.5200 ####[facility] [address] [place], [address] Sodium [Moles/Vol] 137 mmol/L Normal 136-145 [facility] Comment on above: Performed By: #### L 100.0500, L501.2300, L500.2500, L501.5200 ####[facility] [address] [place], [address] Urea nitrogen [Mass/Vol] 8 mg/dL Normal 7-18 [facility] Comment on above: Performed By: #### L 100.0500, L501.2300, L500.2500, L501.5200 ####[facility] [address] [place], [address] Blood urea nitrogen (BUN)/cr eatinine ratioOrdered By: Jana Holden on 07-10-2024 Urea nitrogen/Creatinine [Mass ratio] 11.1 mg/mg 10-20 [facility] Carbon dioxide measurementOr dered By: Jana Holden on 07-10-2024 CO2 [Moles/Vol] 19.0 mmol/L Low 21.0-32.0 [facility] Chloride measurementOrdered By: Jana Holden on 07-10-2024 Chloride [Moles/Vol] 110 mmol/L High 98-107 [facility] Erythrocyte distribution wid th (RBC) [Ratio]Ordered By: Jana Holden on 07-10-2024 Erythrocyte distribution width (RBC) [Entitic vol] 62.3 fL High 35.1-43.9 [facility] Erythrocyte distribution wid th ratioOrdered By: Jana Holden on 07-10-2024 Erythrocyte distribution width (RBC) [Ratio] 16.6 % High 11.6-14.6 [facility] Erythrocyte distribution wid th standard deviationOrdered By: Jana Holden on 07-10-2024 Erythrocyte distribution width (RBC) [Ratio] 62.3 fl High 35.1-43.9 [facility] Estimated glomerular filtrat ion rate (GFR) AmericanOrdered By: Jana Holden on 07-10-2024 Estimated GFR (MDRD) Amer 109 mL/min >60 [facility] Comment on above: GFR Calc Estimation of creatinine tom aranceOrdered By: Jana Holden on 07-10-2024 Estimated Creatinine Clearance Calc 89.10 ml/min [facility] Glomerular filtration rate ( GFR) estimationOrdered By: Jana Holedn on 07-10-2024 Estimated GFR (MDRD) Non-Af Amer 90 mL/min >60 [facility] Comment on above: Non- GFR Calc GFR/1.73 sq M.predicted among non-blacks MDRD (S/P/Bld) [Vol rate/Area] 90 mL/min/{1.73_m2} >60 [facility] Glucose measurementOrdered B y: Jana Holden on 07-10-2024 Glucose [Mass/Vol] 125 mg/dL High 74-106 [facility] Comment on above: Fasting Glucose resu lt from 100 to 125 mg/dL suggests IMPAIRED HOMEOSTASIS per A.D.A. criteria. Hematocrit Auto (Bld) [Volum e fraction]Ordered By: Jana Holden on 07-10-2024 Hematocrit (Bld) [Volume fraction] 32.3 % Low 37-47 [facility] Hemoglobin measurementOrdere d By: Jana Holden on 07-10-2024 Hemoglobin (Bld) [Mass/Vol] 10.3 g/dL Low 12.0-15.0 [facility] MCV (mean corpuscular volume ) determinationOrdered By: Jana Holden on 07-10-2024 MCV (RBC) [Entitic vol] 103.5 fL High 81-99 [facility] Magnesiumon 07-10-2024 Magnesium [Mass/Vol] 1.8 mg/dL Normal 1.6-2.6 [facility] Comment on above: Performed By: #### L 100.0500, L501.2300, L500.2500, L501.5200 ####[facility] [address] [place], [address] Magnesium measurementOrdered By: Jana Holden on 07-10-2024 Magnesium [Mass/Vol] 1.8 mg/dL 1.6-2.6 [facility] Mean corpuscular hemoglobin (MCH) determinationOrdered By: Jana Holden on 07-10-2024 MCH (RBC) [Entitic mass] 33.0 pg High 27.0-32.0 [facility] Mean corpuscular hemoglobin concentration (MCHC) determinationOrdered By: Jana Holden on 07-10-2024 MCHC (RBC) [Mass/Vol] 31.9 g/dL Low 32-36 [facility] Mean platelet volume determi nationOrdered By: Jana Holden on 07-10-2024 Platelet mean volume (Bld) [Entitic vol] 11.6 fL 6.2-12.0 [facility] Pathologist review Maury (Unsp spec) [Interp]Ordered By: Jana Holden on 07-10-2024 Differential Pathologist's Review Reviewed [facility] Comment on above: Previous reported re sult: Bridgette gibson Edited by: ALYSE on 07/12/24:1405Pancytopenia.Leukopenia and neutropenia.Macrocytic anemia.MARKED Thrombocytopenia.Clinical correlation necessary.Hammad Loyola M.D. 07/12/24 AMENDED REPORT 07/12/24 1405 PATH REV previously reported as: Bridgette gibson Phosphoruson 07-10-2024 Phosphate [Mass/Vol] 2.9 mg/dL Normal 2.5-4.9 [facility] Comment on above: Performed By: #### L 100.0500, L501.2300, L500.2500, L501.5200 ####[facility] [address] [place], [address] Phosphorus measurementOrdere d By: Jana Holden on 07-10-2024 Phosphorus Level 2.9 mg/dL 2.5-4.9 [facility] Platelet countOrdered By: Lashawn Holden on 07-10-2024 Platelets (Bld) [#/Vol] 41 10*3/uL Low 150-450 [facility] Comment on above: CRITICAL VALUE SHARP D TO [id number]/01/25 0645 Marcos Luis.RESULTS READ BACK BY SAME. Potassium measurementOrdered By: Jana Holden on 07-10-2024 Potassium [Moles/Vol] 3.4 mmol/L Low 3.5-5.1 [facility] RBC Auto (Bld) [#/Vol]Ordere d By: Jana Holden on 07-10-2024 RBC (Bld) [#/Vol] 3.12 10*6/uL Low 4.2-5.4 [facility] Review by pathologistOrdered By: Jana Holden on 07-10-2024 Pathologist review Maury (Unsp spec) [Interp] Reviewed [facility] Serum anion gap measurementO rdered By: Jana Holden on 07-10-2024 Anion gap [Moles/Vol] 8 mmol/L 5-15 [facility] Serum or plasma calcium ferdinand urement (mass/volume)Ordered By: Jana Holden on 07-10-2024 Calcium [Mass/Vol] 8.1 mg/dL Low 8.5-10.1 [facility] Serum or plasma creatinine m easurement (mass/volume)Ordered By: Jana Holden on 07-10-2024 Creatinine [Mass/Vol] 0.72 mg/dL 0.55-1.02 [facility] Comment on above: The validity of the calculated GFR & GFRAA in patients over 70 years has not been determined. Clinical correlation is essential. Serum or plasma urea nitroge n measurement (mass/volume)Ordered By: Jana Holden on 07-10-2024 Urea nitrogen [Mass/Vol] 8 mg/dL 7-18 [facility] Sodium levelOrdered By: Dominga Holden on 07-10-2024 Sodium [Moles/Vol] 137 mmol/L 136-145 [facility] Urinalysis, Completeon 07-10 BACTERIA 3+ /hpf Normal None Seen [facility] Comment on above: Order Comment: CLEAN CATCH Performed By: #### L 400.0001 ####[facility] [address] [place], [address] EPI,SQUAMOUS 5-10 SEEN Normal 5-10 [facility] Comment on above: Order Comment: CLEAN CATCH Performed By: #### L 400.0001 ####[facility] [address] [place], [address] WBC 50-100 SEEN Normal 0-5 [facility] Comment on above: Order Comment: CLEAN CATCH Performed By: #### L 400.0001 ####[facility] [address] [place], [address] Urine cultureOrdered By: Carolyn Holden on 07-10-2024 Bacteria identified Cx Nom (U) Culture exhibits no growth. [facility] White blood cell (WBC) count Ordered By: Jana Holden on 07-10-2024 WBC (Bld) [#/Vol] 2.6 10*3/uL Low 4.4-11.0 [facility] Basic Metabolic Profile (BMP )on 07-09-2024 BUN/CRE 11.4 RATIO Normal 10-20 [facility] Comment on above: Performed By: #### L 500.2500, L100.0500, L501.5200, L501.2300, L100.4500 ####[facility] [address] [place], [address] CA,Total 7.7 mg/dL Low 8.5-10.1 [facility] Comment on above: Performed By: #### L 500.2500, L100.0500, L501.5200, L501.2300, L100.4500 ####[facility] [address] [place], [address] Chloride [Moles/Vol] 110 mmol/L High 98-107 [facility] Comment on above: Performed By: #### L 500.2500, L100.0500, L501.5200, L501.2300, L100.4500 ####[facility] [address] [place], [address] CO2 [Moles/Vol] 19.0 mmol/L Low 21.0-32.0 [facility] Comment on above: Performed By: #### L 500.2500, L100.0500, L501.5200, L501.2300, L100.4500 ####[facility] [address] [place], [address] Creatinine [Mass/Vol] 0.79 mg/dL Normal 0.55-1.02 [facility] Comment on above: Result Comment: The validity of the calculated GFR GFRAA in patients over70 years has not been determined. Clinical correlation isessential. Performed By: #### L 500.2500, L100.0500, L501.5200, L501.2300, L100.4500 ####[facility] [address] [place], [address] ECRCL 81.62 ml/min Normal [facility] Comment on above: Performed By: #### L 500.2500, L100.0500, L501.5200, L501.2300, L100.4500 ####[facility] [address] [place], [address] EST GFR - AA 98 mL/min Normal >60 [facility] Comment on above: Result Comment: Afri can Libyan GFR Calc Performed By: #### L 500.2500, L100.0500, L501.5200, L501.2300, L100.4500 ####[facility] [address] [place], [address] GAP 8 Normal 5-15 [facility] Comment on above: Performed By: #### L 500.2500, L100.0500, L501.5200, L501.2300, L100.4500 ####[facility] [address] [place], [address] GFR/1.73 sq M.predicted among non-blacks MDRD (S/P/Bld) [Vol rate/Area] 81 mL/min/{1.73_m2} Normal >60 [facility] Comment on above: Result Comment: Non- GFR Calc Performed By: #### L 500.2500, L100.0500, L501.5200, L501.2300, L100.4500 ####[facility] [address] [place], [address] Glucose [Mass/Vol] 132 mg/dL High 74-106 [facility] Comment on above: Result Comment: Fast ing Glucose result greater than or equal to 126 mg/dLsuggests DIABETES MELLITUS per A.D.A. criteria. Performed By: #### L 500.2500, L100.0500, L501.5200, L501.2300, L100.4500 ####[facility] [address] [place], [address] Potassium [Moles/Vol] 3.2 mmol/L Low 3.5-5.1 [facility] Comment on above: Performed By: #### L 500.2500, L100.0500, L501.5200, L501.2300, L100.4500 ####[facility] [address] [place], [address] Sodium [Moles/Vol] 137 mmol/L Normal 136-145 [facility] Comment on above: Performed By: #### L 500.2500, L100.0500, L501.5200, L501.2300, L100.4500 ####[facility] [address] [place], [address] Urea nitrogen [Mass/Vol] 9 mg/dL Normal 7-18 [facility] Comment on above: Performed By: #### L 500.2500, L100.0500, L501.5200, L501.2300, L100.4500 ####[facility] [address] [place], [address] Bilirubin Test strip Ql (U)O rdered By: Jana Holden on 07-09-2024 Bilirubin Ql (U) Negative Negative [facility] Blood manual differential co mment interpretation (narrative result)Ordered By: Jana Holden on 07-09-2024 Manual differential comment Maury (Bld) [Interp] COMMENT [facility] CBC W/Diff, Automatedon 06-11 PATH REV Reviewed Normal [facility] Comment on above: Order Comment: CRITI NOE VALUE CALLED TO ELSA LAMBERT07/08/24 0750 Mary Oj.RESULTS READ BACK BY SAME. Result Comment: Panc ytopenia.LEUKOPENIAMacrocytic anemia.MARKED Thrombocytopenia.Clinical correlation necessary.Hammad Loyola M.D. 07/09/24 Performed By: #### L 100.0100, L501.2300 ####[facility] [address] [place], [address] Result Comment: the peripheral smear shows normochromic normocytic anemia.the platelets are low in number and normal in form. there diane leukopenia with an increased number of neutrophils. thisis often caused by a reactive process.Sergei Robbins M.D. 07/09/24 AMENDED REPORT 07/09/24 1001 PATH REV previously reported as: Reviewed Performed By: #### L 505.5000, L501.9100, L501.5200, L501.2450, L500.2500, L500.3400, L100.0100 ####[facility] [address] [place], [address] Differential Commenton 07-09 SMEAR COMMENT COMMENT Normal [facility] Comment on above: Result Comment: PLAT ELET POPULATION - MARKED DECREASED Performed By: #### L 500.2500, L100.0500, L501.5200, L501.2300, L100.4500 ####[facility] [address] [place], [address] Epithelial cells.squamous LM Ql (Urine sed)Ordered By: Jana Holden on 07-09-2024 Epithelial cells.squamous LM.HPF (Urine sed) [#/Area] 5 /[HPF] 5-10 [facility] Glucose Ql (U)Ordered By: Lashawn Holden on 07-09-2024 Urine Glucose (UA) Normal mg/dl Normal [facility] Ketones Test strip Ql (U)Ord ered By: Jana Holden on 07-09-2024 Ketones Ql (U) Negative Negative [facility] Magnesiumon 07-09-2024 Magnesium [Mass/Vol] 1.5 mg/dL Low 1.6-2.6 [facility] Comment on above: Performed By: #### L 500.2500, L100.0500, L501.5200, L501.2300, L100.4500 ####[facility] [address] [place], [place], [address] Manual differential comment Maury (Bld) [Interp]Ordered By: Jana Holden on 07-09-2024 Differential Comment COMMENT [facility] Comment on above: PLATELET POPULATION - MARKED DECREASED Microscopic analysis of urin e for red blood cells (RBC)Ordered By: Jana Holden on 07-09-2024 Urine RBC 0 SEEN /hpf 0-5 [facility] Mucus LM Ql (Urine sed)Order ed By: Jana Holden on 07-09-2024 Mucus Ql (Urine sed) 0 SEEN /hpf [facility] Nitrite Test strip Ql (U)Ord ered By: Jana Holden on 07-09-2024 Nitrite Ql (U) Negative Negative [facility] Phosphoruson 07-09-2024 Phosphate [Mass/Vol] 2.0 mg/dL Low 2.5-4.9 [facility] Comment on above: Performed By: #### L 500.2500, L100.0500, L501.5200, L501.2300, L100.4500 ####[facility] [address] [place], [place], [address] Protein Test strip Ql (U)Ord ered By: Jana Holden on 07-09-2024 Protein Ql (U) Negative Negative [facility] Squamous epithelial cells de tection in urine sediment by light microscopyOrdered By: Jana Holden on 07-09-2024 Epithelial cells.squamous LM Ql (Urine sed) 5-10 SEEN /hpf 5-10 [facility] Urinalysis, Completeon 07-09 Mucus Ql (Urine sed) 0 SEEN Normal [facility] Comment on above: Order Comment: CLEAN CATCH Performed By: #### L 400.0001 ####[facility] [address] [place], [address] RBC 0 SEEN Normal 0-5 [facility] Comment on above: Order Comment: CLEAN CATCH Performed By: #### L 400.0001 ####[facility] [address] [place], [place], [address] Urine blood detectionOrdered By: Jana Holden on 07-09-2024 Urine Occult Blood Negative Negative [facility] Urine clarityOrdered By: Carolyn Holden on 07-09-2024 Clarity (U) Clear Clear [facility] Urine color determinationOrd ered By: Jana Holden on 07-09-2024 Color (U) Yellow Yellow [facility] Urine glucose detectionOrder ed By: Jana Holden on 07-09-2024 Glucose Ql (U) Normal mg/dl Normal [facility] Urine leukocyte esterase det ection by dipstickOrdered By: Jana Holden on 07-09-2024 Leukocyte esterase Test strip Ql (U) 500 /ul High Negative [facility] Urine pHOrdered By: Jana Holden on 07-09-2024 pH (U) 7.0 [pH] 5.0 - 8.0 [facility] Urine sediment bacteria coun t by microscopy (number/high power field)Ordered By: Jana Holden on 07-09-2024 Bacteria LM.HPF (Urine sed) [#/Area] 3 /[HPF] None Seen [facility] Urine specific gravity measu rementOrdered By: Jana Holden on 07-09-2024 Specific gravity (U) [Rel density] 1.010 1.002-1.030 [facility] Urine urobilinogen measureme ntOrdered By: Jana Holden on 07-09-2024 Urobilinogen Ql (U) 4 mg/dl High Normal [facility] Urobilinogen Ql (U)Ordered B y: Jana Holden on 07-09-2024 Urobilinogen (U) [Mass/Vol] 4 mg/dL High Normal [facility] White blood cell countOrdere d By: Jana Holden on 07-09-2024 Urine WBC 50-100 SEEN /hpf 0-5 [facility] White blood cell count 50-100 SEEN /hpf 0-5 [facility] Absolute lymphocyte countOrd ered By: Jana Holden on 07-08-2024 Lymphocytes Auto (Unsp spec) [#/Vol] 1.16 10*3/uL 0.83-4.51 [facility] Absolute neutrophil countOrd ered By: Jana Holden on 07-08-2024 Neutrophils (Bld) [#/Vol] 2.4 10*3/uL 2.0-7.7 [facility] Activated partial thrombopla stin time (aPTT) in platelet poor plasma by coagulation aOrdered By: Jana Holden on 07-08-2024 aPTT Coag (PPP) [Time] 32.0 s 24.1-36.2 [facility] Automated lymphocyte count a s percentage of total leukocytesOrdered By: Jana Holden on 07-08-2024 Lymphocytes/100 WBC Auto (Unsp spec) 28.0 % 19-41 [facility] Basic Metabolic Profile (BMP )on 07-08-2024 BUN/CRE 6.4 RATIO Low 10-20 [facility] Comment on above: Performed By: #### L 300.4310, L500.2500, L501.5200, L503.6030, L503.6550 ####[facility] [address] [place], [address] CA,Total 8.3 mg/dL Low 8.5-10.1 [facility] Comment on above: Performed By: #### L 300.4310, L500.2500, L501.5200, L503.6030, L503.6550 ####[facility] [address] [place], [address] Chloride [Moles/Vol] 105 mmol/L Normal 98-107 [facility] Comment on above: Performed By: #### L 300.4310, L500.2500, L501.5200, L503.6030, L503.6550 ####[facility] [address] [place], [address] CO2 [Moles/Vol] 24.0 mmol/L Normal 21.0-32.0 [facility] Comment on above: Performed By: #### L 300.4310, L500.2500, L501.5200, L503.6030, L503.6550 ####[facility] [address] [place], [address] Creatinine [Mass/Vol] 0.78 mg/dL Normal 0.55-1.02 [facility] Comment on above: Result Comment: The validity of the calculated GFR GFRAA in patients over70 years has not been determined. Clinical correlation isessential. Performed By: #### L 300.4310, L500.2500, L501.5200, L503.6030, L503.6550 ####[facility] [address] [place], [address] ECRCL 82.67 ml/min Normal [facility] Comment on above: Performed By: #### L 300.4310, L500.2500, L501.5200, L503.6030, L503.6550 ####[facility] [address] [place], [address] EST GFR - AA 99 mL/min Normal >60 [facility] Comment on above: Result Comment: Afri can Libyan GFR Calc Performed By: #### L 300.4310, L500.2500, L501.5200, L503.6030, L503.6550 ####[facility] [address] [place], [address] GAP 8 Normal 5-15 [facility] Comment on above: Performed By: #### L 300.4310, L500.2500, L501.5200, L503.6030, L503.6550 ####[facility] [address] [place], [address] GFR/1.73 sq M.predicted among non-blacks MDRD (S/P/Bld) [Vol rate/Area] 82 mL/min/{1.73_m2} Normal >60 [facility] Comment on above: Result Comment: Non- GFR Calc Performed By: #### L 300.4310, L500.2500, L501.5200, L503.6030, L503.6550 ####[facility] [address] [place], [address] Glucose [Mass/Vol] 93 mg/dL Normal 74-106 [facility] Comment on above: Performed By: #### L 300.4310, L500.2500, L501.5200, L503.6030, L503.6550 ####[facility] [address] [place], [address] Potassium [Moles/Vol] 2.7 mmol/L Invalid Interpretation Code 3.5-5.1 [facility] Comment on above: Result Comment: Crit ical Result(s) Called at: 07:59:02 07/08/2024 by:Carin Camp RN ([facility]). Results read back by same. Performed By: #### L 300.4310, L500.2500, L501.5200, L503.6030, L503.6550 ####[facility] [address] [place], [address] Sodium [Moles/Vol] 136 mmol/L Normal 136-145 [facility] Comment on above: Performed By: #### L 300.4310, L500.2500, L501.5200, L503.6030, L503.6550 ####[facility] [address] [place], [address] Urea nitrogen [Mass/Vol] 5 mg/dL Low 7-18 [facility] Comment on above: Performed By: #### L 300.4310, L500.2500, L501.5200, L503.6030, L503.6550 ####[facility] [address] [place], [address] Basophil percentageOrdered B y: Jana Holden on 07-08-2024 Basophils/100 WBC (Bld) 0.5 % 0-1 [facility] CBC W/Diff, Automatedon 06-11 PATH REV Reviewed Normal [facility] Comment on above: Order Comment: CRITI NOE VALUE CALLED TO ELSA LAMBERT07/07/24 1018 Mary Oj.RESULTS READ BACK BY SAME. Result Comment: Panc ytopenia.LEUKOPENIAMacrocytic anemia, NRBC's ARE NOTEDMARKED Thrombocytopenia.Clinical correlation necessary.Hammad Loyola M.D. 07/08/24 AMENDED REPORT 07/08/24 1411 PATH REV previously reported as: October Performed By: #### L 500.2500, L100.0100 ####[facility] [address] [place], [address] Eosinophil percentageOrdered By: Jana Holden on 07-08-2024 Eosinophils/100 WBC (Bld) 0.5 % 0-5 [facility] Ferritin measurementOrdered By: Jana Holden on 07-08-2024 Ferritin [Mass/Vol] 103 ng/mL Normal 8-252 [facility] Comment on above: Performed By: #### L 300.4310, L500.2500, L501.5200, L503.6030, L503.6550 ####[facility] [address] [place], [address] Immature granulocytes/100 WB C Auto (Bld)Ordered By: Jana Holden on 07-08-2024 Immature granulocytes/100 WBC (Bld) 0.700 % 0.0-0.9 [facility] Comment on above: IG% - Immature Granu locytes (promyelocytes, myelocytes and metamyelocytes) > 1% indicates that a LEFT SHIFT is Present. Iron measurement (mass/mass) Ordered By: Jana Holden on 07-08-2024 Iron (Unsp spec) [Mass/Mass] 48 ug/dL Low 50-170 [facility] Iron [Mass/Vol] 48 ug/dL Low 50-170 [facility] Comment on above: Performed By: #### L 300.4310, L500.2500, L501.5200, L503.6030, L503.6550 ####[facility] [address] [place], [address] Iron saturation [Mass fracti on]Ordered By: Jana Holden on 07-08-2024 Iron Saturation 12.1 % Low 15.0-55.0 [facility] Iron+Iron Binding Capacityon 07-08-2024 IRON SATURATION 12.1 Low 15.0-55.0 [facility] Comment on above: Performed By: #### L 300.4310, L500.2500, L501.5200, L503.6030, L503.6550 ####[facility] [address] [place], [address] TIBC 397 ug/dL Normal 250-450 [facility] Comment on above: Performed By: #### L 300.4310, L500.2500, L501.5200, L503.6030, L503.6550 ####[facility] [address] [place], [address] Lymphocytes Auto (Unsp spec) [#/Vol]Ordered By: Jana Holden on 07-08-2024 Lymphocytes (Bld) [#/Vol] 1.16 10*3/uL 0.83-4.51 [facility] Lymphocytes/100 WBC Auto (Un sp spec)Ordered By: Jana Holden on 07-08-2024 Lymphocytes/100 WBC (Bld) 28.0 % 19-41 [facility] [facility]24 Magnesium [Mass/Vol] 1.6 mg/dL Normal 1.6-2.6 [facility] Comment on above: Performed By: #### L 300.4310, L500.2500, L501.5200, L503.6030, L503.6550 ####[facility] [address] [place], [place], [phone] Monocyte percentageOrdered B y: Jana Holden on 07-08-2024 Monocytes/100 WBC (Bld) 13.5 % High 0-10 [facility] Neutrophil percentageOrdered By: Jana Holden on 07-08-2024 Neutrophils/100 WBC (Bld) 56.8 % 47-70 [facility] Nucleated red blood cell per centageOrdered By: Jana Holden on 07-08-2024 Nucleated RBC/100 WBC (Bld) [Ratio] 0.5 % 0-5 [facility] Partial Thromboplast Timeon 07-08-2024 aPTT Coag (Bld) [Time] 32.0 s Normal 24.1-36.2 [facility] Comment on above: Performed By: #### L 300.4310, L500.2500, L501.5200, L503.6030, L503.6550 ####[facility] [address] [place], [address] Phosphoruson 07-08-2024 Phosphate [Mass/Vol] 1.0 mg/dL Invalid Interpretation Code 2.5-4.9 [facility] Comment on above: Result Comment: Crit ical Result(s) Called at: 09:27:22 07/08/2024 by: Carin Turner RN ([facility]). Results read back by same. Performed By: #### L 100.0100, L501.2300 ####[facility] [address] [place], [place], [address] Platelet estimateOrdered By: Jana Holden on 07-08-2024 Platelets LM Ql (Bld) MKD DEC ADEQ [facility] Platelets LM Ql (Bld)Ordered By: Jana Holden on 07-08-2024 Platelet Estimate MKD DEC [facility] [place] Serum or plasma iron saturat ion measurement (mass fraction)Ordered By: Jana Holden on 07-08-2024 Iron saturation [Mass fraction] 12.1 % Low 15.0-55.0 [facility] TIBCOrdered By: Jana Holden on 07-08-2024 Total Iron Binding Capacity 397 ug/dL 250-450 [facility] aPTT Coag (PPP) [Time]Ordere d By: Jana Holden on 07-08-2024 aPTT Coag (Bld) [Time] 32.0 s 24.1-36.2 [facility] Basic Metabolic Profile (BMP )on 07-07-2024 BUN/CRE 4.3 RATIO Low 10-20 [facility] Comment on above: Performed By: #### L 500.2500, L100.0100 ####[facility] [address] [place], [address] CA,Total 8.5 mg/dL Normal 8.5-10.1 [facility] Comment on above: Performed By: #### L 500.2500, L100.0100 ####[facility] [address] [place], [address] Chloride [Moles/Vol] 104 mmol/L Normal 98-107 [facility] Comment on above: Performed By: #### L 500.2500, L100.0100 ####[facility] [address] [place], [address] CO2 [Moles/Vol] 21.0 mmol/L Normal 21.0-32.0 [facility] Comment on above: Performed By: #### L 500.2500, L100.0100 ####[facility] [address] [place], [address] Creatinine [Mass/Vol] 0.94 mg/dL Normal 0.55-1.02 [facility] Comment on above: Result Comment: The validity of the calculated GFR GFRAA in patients over70 years has not been determined. Clinical correlation isessential. Performed By: #### L 500.2500, L100.0100 ####[facility] [address] [place], [address] ECRCL 71.13 ml/min Normal [facility] Comment on above: Performed By: #### L 500.2500, L100.0100 ####[facility] [address] [place], [address] EST GFR - AA 80 mL/min Normal >60 [facility] Comment on above: Result Comment: Afri can Libyan GFR Calc Performed By: #### L 500.2500, L100.0100 ####[facility] [address] [place], [address] GAP 11 Normal 5-15 [facility] Comment on above: Performed By: #### L 500.2500, L100.0100 ####[facility] [address] [place], [address] GFR/1.73 sq M.predicted among non-blacks MDRD (S/P/Bld) [Vol rate/Area] 66 mL/min/{1.73_m2} Normal >60 [facility] Comment on above: Result Comment: Non- GFR Calc Performed By: #### L 500.2500, L100.0100 ####[facility] [address] [place], [address] Glucose [Mass/Vol] 129 mg/dL High 74-106 [facility] Comment on above: Result Comment: Fast ing Glucose result greater than or equal to 126 mg/dLsuggests DIABETES MELLITUS per A.D.A. criteria. Performed By: #### L 500.2500, L100.0100 ####[facility] [address] [place], [address] Potassium [Moles/Vol] 3.5 mmol/L Normal 3.5-5.1 [facility] Comment on above: Performed By: #### L 500.2500, L100.0100 ####[facility] [address] [place], [address] Sodium [Moles/Vol] 136 mmol/L Normal 136-145 [facility] Comment on above: Performed By: #### L 500.2500, L100.0100 ####[facility] [address] [place], [address] Urea nitrogen [Mass/Vol] 4 mg/dL Low 7-18 [facility] Comment on above: Performed By: #### L 500.2500, L100.0100 ####[facility] [address] [place], [address] CBC W/Diff, Automatedon 06-10 PATH REV Reviewed Normal [facility] Comment on above: Result Comment: Panc ytopenia.LEUKOPENIAMacrocytic anemia.MARKED Thrombocytopenia.Clinical correlation necessary.Hammad Loyola M.D. 07/07/24 AMENDED REPORT 07/07/24 1423 PATH REV previously reported as: Bridgette gibson Performed By: #### L 501.5200, L501.2300, L100.0100, L500.4050 ####[facility] [address] [place], [address] COVID 19 AG RAPID (SORIN Ramon)on 07-07-2024 SARS-CoV-2 (COVID-19) RNA MARLO+probe Ql (Unsp spec) Normal [facility] Comment on above: Performed By: #### M 100.505 ####[facility] [address] [place], [address] COVID-19 virus antigen assay Ordered By: Jana Holden on 07-07-2024 SARS-CoV-2 (COVID-19) Ag IA.rapid Ql (Resp) [facility] Hemoglobinon 07-07-2024 Hemoglobin (Bld) [Mass/Vol] 10.6 g/dL Low 12.0-15.0 [facility] Comment on above: Performed By: #### L 100.1300 ####[facility] [address] [place], [place], [id number] International normalized rat io (INR) calculationOrdered By: Jana Holden on 07-07-2024 INR Coag (Bld) [Relative time] 1.6 {INR} [facility] Prothrombin Time w/INRon INR Coag (PPP) [Relative time] 1.6 {INR} Normal [facility] Comment on above: Performed By: #### L 300.3900 ####[facility] [address] [place], [address] PT Coag (PPP) [Time] 19.4 s High 11.7-14.9 [facility] Comment on above: Performed By: #### L 300.3900 ####[facility] [address] [place], [place], [id number] Prothrombin timeOrdered By: Jana Holden on 07-07-2024 PT Coag (PPP) [Time] 19.4 s High 11.7-14.9 [facility] RESPIRATORY PANEL MOLECULARo n 07-07-2024 RP PANEL Normal [facility] Comment on above: Performed By: #### M 100.638 ####[facility] [address] [place], [address] Respiratory pathogens DNA an d RNA panel MARLO+probe (Resp)Ordered By: Jana Holden on 07-07-2024 Respiratory Panel (PCR) [facility] Respiratory pathogens detect ion panel by molecular detection methodOrdered By: Jana Holden on 07-07-2024 Respiratory pathogens DNA and RNA panel MARLO+probe (Resp) [facility] SARS-CoV-2 (COVID-19) Ag IA. rapid Ql (Resp)Ordered By: Jana Holden on 07-07-2024 SARS-CoV-2 Antigen (Rapid) [facility] 12 Lead EKGon 07-06-2024 12 Lead EKG Normal [facility] Abdomen/Pelvis without Conto n 07-06-2024 Abdomen/Pelvis without Cont Normal [facility] Albumin to globulin ratioOrd ered By: Riley Martinez on 07-06-2024 Albumin/Globulin [Mass ratio] 1.0 {ratio} 0.9-2.4 [facility] Alcohol, Blood (Medical)-Ser umon 07-06-2024 SERUM ETOH 12.0 mg/dL Normal [facility] Comment on above: Result Comment: The serum:whole blood ethanol ratio is approximately 1.14and varies slightly with hematocrit.Medical Alcohol reference interval and critical value innon-tolerant individuals; 50 - 100 Impairment 100 Intoxication 100 - 250 Severe Poisoning 250 - 400 Deep/possible fatal coma Performed By: #### L 505.5000, L501.9100, L501.5200, L501.2450, L500.2500, L500.3400, L100.0100 ####[facility] [address] [place], [address] Basic Metabolic Profile (BMP )on 07-06-2024 BUN/CRE 4.9 RATIO Low 10-20 [facility] Comment on above: Performed By: #### L 500.2500 ####[facility] [address] [place], [address] CA,Total 8.6 mg/dL Normal 8.5-10.1 [facility] Comment on above: Performed By: #### L 500.2500 ####[facility] [address] [place], [address] Chloride [Moles/Vol] 106 mmol/L Normal 98-107 [facility] Comment on above: Performed By: #### L 500.2500 ####[facility] [address] [place], [address] CO2 [Moles/Vol] 25.0 mmol/L Normal 21.0-32.0 [facility] Comment on above: Performed By: #### L 500.2500 ####[facility] [address] [place], [address] Creatinine [Mass/Vol] 0.81 mg/dL Normal 0.55-1.02 [facility] Comment on above: Result Comment: The validity of the calculated GFR GFRAA in patients over70 years has not been determined. Clinical correlation isessential. Performed By: #### L 500.2500 ####[facility] [address] [place], [address] ECRCL 79.20 ml/min Normal [facility] Comment on above: Performed By: #### L 500.2500 ####[facility] [address] [place], [address] EST GFR - AA 95 mL/min Normal >60 [facility] Comment on above: Result Comment: Afri can Libyan GFR Calc Performed By: #### L 500.2500 ####[facility] [address] [place], [address] GAP 10 Normal 5-15 [facility] Comment on above: Performed By: #### L 500.2500 ####[facility] [address] [place], [address] GFR/1.73 sq M.predicted among non-blacks MDRD (S/P/Bld) [Vol rate/Area] 78 mL/min/{1.73_m2} Normal >60 [facility] Comment on above: Result Comment: Non- GFR Calc Performed By: #### L 500.2500 ####[facility] [address] [place], [address] Glucose [Mass/Vol] 143 mg/dL High 74-106 [facility] Comment on above: Result Comment: Fast ing Glucose result greater than or equal to 126 mg/dLsuggests DIABETES MELLITUS per A.D.A. criteria. Performed By: #### L 500.2500 ####[facility] [address] [place], [address] Potassium [Moles/Vol] 3.2 mmol/L Low 3.5-5.1 [facility] Comment on above: Performed By: #### L 500.2500 ####[facility] [address] [place], [address] Sodium [Moles/Vol] 141 mmol/L Normal 136-145 [facility] Comment on above: Performed By: #### L 500.2500 ####[facility] [address] [place], [address] Urea nitrogen [Mass/Vol] 4 mg/dL Low 7-18 [facility] Comment on above: Performed By: #### L 500.2500 ####[facility] [address] [place], [address] BUN/CRE 4.8 RATIO Low 10-20 [facility] Comment on above: Performed By: #### L 505.5000, L501.9100, L501.5200, L501.2450, L500.2500, L500.3400, L100.0100 ####[facility] [address] [place], [address] CA,Total 9.3 mg/dL Normal 8.5-10.1 [facility] Comment on above: Performed By: #### L 505.5000, L501.9100, L501.5200, L501.2450, L500.2500, L500.3400, L100.0100 ####[facility] [address] [place], [address] Chloride [Moles/Vol] 101 mmol/L Normal 98-107 [facility] Comment on above: Performed By: #### L 505.5000, L501.9100, L501.5200, L501.2450, L500.2500, L500.3400, L100.0100 ####[facility] [address] [place], [address] CO2 [Moles/Vol] 17.0 mmol/L Low 21.0-32.0 [facility] Comment on above: Performed By: #### L 505.5000, L501.9100, L501.5200, L501.2450, L500.2500, L500.3400, L100.0100 ####[facility] [address] [place], [address] Creatinine [Mass/Vol] 0.82 mg/dL Normal 0.55-1.02 [facility] Comment on above: Result Comment: The validity of the calculated GFR GFRAA in patients over70 years has not been determined. Clinical correlation isessential. Performed By: #### L 505.5000, L501.9100, L501.5200, L501.2450, L500.2500, L500.3400, L100.0100 ####[facility] [address] [place], [address] ECRCL 78.48 ml/min Normal [facility] Comment on above: Performed By: #### L 505.5000, L501.9100, L501.5200, L501.2450, L500.2500, L500.3400, L100.0100 ####[facility] [address] [place], [place], [phone] EST GFR - AA 93 mL/min Normal >60 [facility] Comment on above: Result Comment: Afri can Libyan GFR Calc Performed By: #### L 505.5000, L501.9100, L501.5200, L501.2450, L500.2500, L500.3400, L100.0100 ####[facility] [address] [place], [place], [address] GAP 23 High 5-15 [facility] Comment on above: Performed By: #### L 505.5000, L501.9100, L501.5200, L501.2450, L500.2500, L500.3400, L100.0100 ####[facility] [address] [place], [place], [phone] GFR/1.73 sq M.predicted among non-blacks MDRD (S/P/Bld) [Vol rate/Area] 77 mL/min/{1.73_m2} Normal >60 [facility] Comment on above: Result Comment: Non- GFR Calc Performed By: #### L 505.5000, L501.9100, L501.5200, L501.2450, L500.2500, L500.3400, L100.0100 ####[facility] [address] [place], [address] Glucose [Mass/Vol] 147 mg/dL High 74-106 [facility] Comment on above: Result Comment: Fast ing Glucose result greater than or equal to 126 mg/dLsuggests DIABETES MELLITUS per A.D.A. criteria. Performed By: #### L 505.5000, L501.9100, L501.5200, L501.2450, L500.2500, L500.3400, L100.0100 ####[facility] [address] [place], [address] Potassium [Moles/Vol] 2.7 mmol/L Invalid Interpretation Code 3.5-5.1 [facility] Comment on above: Result Comment: Crit ical Result(s) Called at: 01:30:17 07/06/2024 by: Kwame. to Erin [facility]. Results read back by same. Performed By: #### L 505.5000, L501.9100, L501.5200, L501.2450, L500.2500, L500.3400, L100.0100 ####[facility] [address] [place], [address] Sodium [Moles/Vol] 141 mmol/L Normal 136-145 [facility] Comment on above: Performed By: #### L 505.5000, L501.9100, L501.5200, L501.2450, L500.2500, L500.3400, L100.0100 ####[facility] [address] [place], [address] Urea nitrogen [Mass/Vol] 4 mg/dL Low 7-18 [facility] Comment on above: Performed By: #### L 505.5000, L501.9100, L501.5200, L501.2450, L500.2500, L500.3400, L100.0100 ####[facility] [address] [place], [address] Bilirubin directOrdered By: Oscar Fitzgerald on 07-06-2024 Bilirubin.direct [Mass/Vol] 0.86 mg/dL High 0.00-0.30 [facility] Bilirubin, totalOrdered By: Riley Martinez on 07-06-2024 Bilirubin [Mass/Vol] 2.90 mg/dL High 0.20-1.00 [facility] Comment on above: For patients on eltr ombopag therapy, use of Dimension [place] TBIL is not recommended. Comprehensive Metabolic Prof ilon 07-06-2024 Albumin [Mass/Vol] 3.7 g/dL Normal 3.2-5.0 [facility] Comment on above: Performed By: #### L 501.5200, L501.2300, L100.0100, L500.4050 ####[facility] [address] [place], [address] Albumin/Globulin [Mass ratio] 1.0 {ratio} Normal 0.9-2.4 [facility] Comment on above: Performed By: #### L 501.5200, L501.2300, L100.0100, L500.4050 ####[facility] [address] [place], [address] ALK P 110 U/L Normal 45-117 [facility] Comment on above: Performed By: #### L 501.5200, L501.2300, L100.0100, L500.4050 ####[facility] [address] [place], [address] ALT [Catalytic activity/Vol] 55 U/L Normal 13-56 [facility] Comment on above: Performed By: #### L 501.5200, L501.2300, L100.0100, L500.4050 ####[facility] [address] [place], [address] AST [Catalytic activity/Vol] 121 U/L High 15-37 [facility] Comment on above: Performed By: #### L 501.5200, L501.2300, L100.0100, L500.4050 ####[facility] [address] [place], [address] Bilirubin [Mass/Vol] 2.90 mg/dL High 0.20-1.00 [facility] Comment on above: Result Comment: For patients on eltrombopag therapy, use of Dimension [place] TBIL is not recommended. Performed By: #### L 501.5200, L501.2300, L100.0100, L500.4050 ####[facility] [address] [place], [address] BUN/CRE 3.2 RATIO Low 10-20 [facility] Comment on above: Performed By: #### L 501.5200, L501.2300, L100.0100, L500.4050 ####[facility] [address] [place], [address] CA,Total 8.8 mg/dL Normal 8.5-10.1 [facility] Comment on above: Performed By: #### L 501.5200, L501.2300, L100.0100, L500.4050 ####[facility] [address] [place], [address] Chloride [Moles/Vol] 103 mmol/L Normal 98-107 [facility] Comment on above: Performed By: #### L 501.5200, L501.2300, L100.0100, L500.4050 ####[facility] [address] [place], [address] CO2 [Moles/Vol] 18.0 mmol/L Low 21.0-32.0 [facility] Comment on above: Performed By: #### L 501.5200, L501.2300, L100.0100, L500.4050 ####[facility] [address] [place], [address] Creatinine [Mass/Vol] 0.93 mg/dL Normal 0.55-1.02 [facility] Comment on above: Result Comment: The validity of the calculated GFR GFRAA in patients over70 years has not been determined. Clinical correlation isessential. Performed By: #### L 501.5200, L501.2300, L100.0100, L500.4050 ####[facility] [address] [place], [address] ECRCL 68.98 ml/min Normal [facility] Comment on above: Performed By: #### L 501.5200, L501.2300, L100.0100, L500.4050 ####[facility] [address] [place], [address] EST GFR - AA 81 mL/min Normal >60 [facility] Comment on above: Result Comment: Afri can Libyan GFR Calc Performed By: #### L 501.5200, L501.2300, L100.0100, L500.4050 ####[facility] [address] [place], [address] GAP 20 High 5-15 [facility] Comment on above: Performed By: #### L 501.5200, L501.2300, L100.0100, L500.4050 ####[facility] [address] [place], [address] GFR/1.73 sq M.predicted among non-blacks MDRD (S/P/Bld) [Vol rate/Area] 67 mL/min/{1.73_m2} Normal >60 [facility] Comment on above: Result Comment: Non- GFR Calc Performed By: #### L 501.5200, L501.2300, L100.0100, L500.4050 ####[facility] [address] [place], [address] Globulin (S) [Mass/Vol] 3.8 g/dL Normal 2.2-4.2 [facility] Comment on above: Performed By: #### L 501.5200, L501.2300, L100.0100, L500.4050 ####[facility] [address] [place], [address] Glucose [Mass/Vol] 119 mg/dL High 74-106 [facility] Comment on above: Result Comment: Fast ing Glucose result from 100 to 125 mg/dLsuggests IMPAIRED HOMEOSTASIS per A.D.A. criteria. Performed By: #### L 501.5200, L501.2300, L100.0100, L500.4050 ####[facility] [address] [place], [address] Potassium [Moles/Vol] 2.8 mmol/L Low 3.5-5.1 [facility] Comment on above: Performed By: #### L 501.5200, L501.2300, L100.0100, L500.4050 ####[facility] [address] [place], [address] Sodium [Moles/Vol] 140 mmol/L Normal 136-145 [facility] Comment on above: Performed By: #### L 501.5200, L501.2300, L100.0100, L500.4050 ####[facility] [address] [place], [address] T PROT 7.5 g/dL Normal 6.4-8.2 [facility] Comment on above: Performed By: #### L 501.5200, L501.2300, L100.0100, L500.4050 ####[facility] [address] [place], [address] Urea nitrogen [Mass/Vol] 3 mg/dL Low 7-18 [facility] Comment on above: Performed By: #### L 501.5200, L501.2300, L100.0100, L500.4050 ####[facility] [address] [place], [address] Emergency Department Summary on 07-06-2024 Emergency Department Summary Normal [facility] Ferritinon 07-06-2024 Ferritin [Mass/Vol] 93 ng/mL Normal 8-252 [facility] Comment on above: Order Comment: Has P atient had X-rays with Contrast this admission? NN Performed By: #### L 503.6550, L503.6030, L506.0250, L501.9520 ####[facility] [address] [place], [address] Folates, (Folic Acid)on 06-10 FOLATES 2.90 ng/mL Low 3.1-55.4 [facility] Comment on above: Order Comment: Has P atient had X-rays with Contrast this admission? NN Result Comment: Slig ht Hemolysis, Result may be falsely increased. Performed By: #### L 503.6550, L503.6030, L506.0250, L501.9520 ####[facility] [address] [place], [address] Folic acid measurementOrdere d By: Riley Martinez on 07-06-2024 Folate 2.90 ng/mL Low 3.1-55.4 [facility] Comment on above: Slight Hemolysis, Re sult may be falsely increased. H AND P Exam - Hospital[facility] 07-06-2024 H&P Exam - Hospitalist Normal [facility] HIV - WCHon 07-06-2024 HIV Non-Reactive Normal Nonreactive [facility] Comment on above: Performed By: #### B TS, L503.0105, L3890.6005 ####[facility] [address] [place], [address] HIV 1 and HIV-2 antibody ass ay with HIV-1 p24 antigen detectionOrdered By: Riley Martinez on 07-06-2024 HIV 1+2 Ab+HIV1 p24 Ag IA Ql Non-Reactive Nonreactive [facility] HIV 1+2 Ab+HIV1 p24 Ag IA Ql Ordered By: Riley Martinez on 07-06-2024 HIV (1&2) Antibody Non-Reactive Nonreactive [facility] Iron+Iron Binding Capacityon 07-06-2024 Iron [Mass/Vol] 243 ug/dL High 50-170 [facility] Comment on above: Order Comment: Has Dewayne cook had X-rays with Contrast this admission? NN Performed By: #### L 503.6550, L503.6030, L506.0250, L501.9520 ####[facility] [address] [place], [address] IRON SATURATION 54.2 Normal 15.0-55.0 [facility] Comment on above: Order Comment: Has Dewayne cook had X-rays with Contrast this admission? NN Performed By: #### L 503.6550, L503.6030, L506.0250, L501.9520 ####[facility] [address] [place], [address] TIBC 448 ug/dL Normal 250-450 [facility] Comment on above: Order Comment: Has Dewayne cook had X-rays with Contrast this admission? NN Performed By: #### L 503.6550, L503.6030, L506.0250, L501.9520 ####[facility] [address] [place], [address] Laboratory - Chemistry and C hemistry - challengeOrdered By: Riley Martinez on 07-06-2024 AST [Catalytic activity/Vol] 121 U/L High 15-37 [facility] Lipaseon 07-06-2024 Lipase [Catalytic activity/Vol] 17 U/L Normal 13-75 [facility] Comment on above: Result Comment: Jude menendez note:LIPASE revised reference range effective 22.New Lipase methodology. Expected to produce lower valuesthan the previous assay method.NEW Reference Range: 13 - 75 U/L Performed By: #### L 505.5000, L501.9100, L501.5200, L501.2450, L500.2500, L500.3400, L100.0100 ####[facility] [address] [place], [address] Lipase measurementOrdered By : Oscar Fitzgerald on 07-06-2024 Lipase [Catalytic activity/Vol] 17 U/L 13-75 [facility] Comment on above: Please note:LIPASE r evised reference range effective 22. New Lipase methodology. Expected to produce lower values than the previous assay method. NEW Reference Range: 13 - 75 U/L Liver Profileon 07-06-2024 Albumin [Mass/Vol] 3.9 g/dL Normal 3.2-5.0 [facility] Comment on above: Performed By: #### L 505.5000, L501.9100, L501.5200, L501.2450, L500.2500, L500.3400, L100.0100 ####[facility] [address] [place], [address] ALK P 119 U/L High 45-117 [facility] Comment on above: Performed By: #### L 505.5000, L501.9100, L501.5200, L501.2450, L500.2500, L500.3400, L100.0100 ####[facility] [address] [place], [address] ALT [Catalytic activity/Vol] 56 U/L Normal 13-56 [facility] Comment on above: Performed By: #### L 505.5000, L501.9100, L501.5200, L501.2450, L500.2500, L500.3400, L100.0100 ####[facility] [address] [place], [address] AST [Catalytic activity/Vol] 122 U/L High 15-37 [facility] Comment on above: Performed By: #### L 505.5000, L501.9100, L501.5200, L501.2450, L500.2500, L500.3400, L100.0100 ####[facility] [address] [place], [address] Bilirubin [Mass/Vol] 2.40 mg/dL High 0.20-1.00 [facility] Comment on above: Result Comment: For patients on eltrombopag therapy, use of Dimension [place] TBIL is not recommended. Performed By: #### L 505.5000, L501.9100, L501.5200, L501.2450, L500.2500, L500.3400, L100.0100 ####[facility] [address] [place], [address] Bilirubin.direct [Mass/Vol] 0.86 mg/dL High 0.00-0.30 [facility] Comment on above: Performed By: #### L 505.5000, L501.9100, L501.5200, L501.2450, L500.2500, L500.3400, L100.0100 ####[facility] [address] [place], [address] Globulin (S) [Mass/Vol] 4.2 g/dL Normal 2.2-4.2 [facility] Comment on above: Performed By: #### L 505.5000, L501.9100, L501.5200, L501.2450, L500.2500, L500.3400, L100.0100 ####[facility] [address] [place], [address] T PROT 8.1 g/dL Normal 6.4-8.2 [facility] Comment on above: Performed By: #### L 505.5000, L501.9100, L501.5200, L501.2450, L500.2500, L500.3400, L100.0100 ####[facility] [address] [place], [address] Magnesiumon 07-06-2024 Magnesium [Mass/Vol] 2.2 mg/dL Normal 1.6-2.6 [facility] Comment on above: Performed By: #### L 501.5200, L501.2300, L100.0100, L500.4050 ####[facility] [address] [place], [address] Magnesium [Mass/Vol] 1.1 mg/dL Low 1.6-2.6 [facility] Comment on above: Performed By: #### L 505.5000, L501.9100, L501.5200, L501.2450, L500.2500, L500.3400, L100.0100 ####[facility] [address] [place], [place], [id number](158) Methadone, urineOrdered By: Oscar Fitzgerald on 07-06-2024 Urine Methadone Screen Negative < 300 ng/mL [facility] No Panel InformationOrdered By: Riley Martinez on 07-06-2024 121 U/L High 15-37 [facility] No Panel InformationOrdered By: Oscar Fitzgerald on 07-06-2024 Urine Drug Screen Comment [facility] Comment on above: CONFIRMATORY TESTING FOR ALL POSITIVE URINE DRUG SCREENRESULTS WILL ONLY BE SENT OUT UPON PHYSICIAN ORDER. VISTA Urine Drug Screen methods provide only preliminaryanalytical test results. A more specific alternate chemicalmethod must be used in order to obtain a confirmedanalytical result. Gas chromatography/mass spectrometery(GC/MS) is the preferred confirmatory method. Clinicalconsideration and professional judgement should be appliedto any drug of abuse test result, particularly whenpreliminary positive results are used. URINE TCA TESTING MUST BE ORDERED SEPARATELY. USE TESTMNEMONIC: [facility] Phosphoruson 07-06-2024 Phosphate [Mass/Vol] 2.8 mg/dL Normal 2.5-4.9 [facility] Comment on above: Performed By: #### L 501.5200, L501.2300, L100.0100, L500.4050 ####[facility] [address] [place], [address] Quantitative urine opiates m easurementOrdered By: Oscar Fitzgerald on 07-06-2024 Opiates Ql (U) Negative < 300 ng/mL [facility] Serum ethanol measurementOrd ered By: Oscar Fitzgerald on 07-06-2024 Ethyl Alcohol Level 12.0 mg/dL [facility] Comment on above: The serum:whole bloo d ethanol ratio is approximately 1.14and varies slightly with hematocrit. Medical Alcohol reference interval and critical value innon-tolerant individuals; 50 - 100 Impairment 100 Intoxication 100 - 250 Severe Poisoning 250 - 400 Deep/possible fatal coma Serum globulin measurementOr dered By: Riley Martinez on 07-06-2024 Globulin (S) [Mass/Vol] 3.8 g/dL 2.2-4.2 [facility] Serum or plasma alanine boyce otransferase (ALT) measurementOrdered By: Riley Martinez on 07-06-2024 ALT [Catalytic activity/Vol] 55 U/L 13-56 [facility] Serum or plasma albumin ferdinand urement (mass/volume)Ordered By: Riley Martinez on 07-06-2024 Albumin [Mass/Vol] 3.7 g/dL 3.2-5.0 [facility] Serum or plasma alkaline garry sphatase measurementOrdered By: Riley Martinez on 07-06-2024 ALP [Catalytic activity/Vol] 110 U/L 45-117 [facility] Serum or plasma thyroid stim ulating hormone (TSH) measurement (units/volume)Ordered By: Riley Martinez on 07-06-2024 TSH Qn 2.820 uIU/mL 0.358-3.740 [facility] TSH QnOrdered By: Riley valdez on 07-06-2024 Thyroid Stimulating Hormone (TSH) 2.820 uIU/mL 0.358-3.740 [facility] Thyroid Stim Hormone (TSH)on 07-06-2024 TSH 2.820 uIU/mL Normal 0.358-3.740 [facility] Comment on above: Order Comment: Has P atient had X-rays with Contrast this admission? NN Performed By: #### L 503.6550, L503.6030, L506.0250, L501.9520 ####[facility] [address] [place], [address] Total proteinOrdered By: Patricio Connenzo on 07-06-2024 Protein [Mass/Vol] 7.5 g/dL 6.4-8.2 [facility] Type AND Screenon 07-06-2024 ABO and Rh group Nom (Bld) Blood group A Rh(D) positive Normal [facility] Comment on above: Order Comment: Has p t arrived? YA Performed By: #### B TS, L503.0105, L3890.6005 ####[facility] [address] [place], [address] Urine Drug Screen (VISTA)on 07-06-2024 AMPHETAMINES Negative Normal <1000 ng/mL [facility] Comment on above: Performed By: #### L 505.5000, L501.9100, L501.5200, L501.2450, L500.2500, L500.3400, L100.0100 ####[facility] [address] [place], [address] BARBITIURATES Negative Normal < 200 ng/mL [facility] Comment on above: Performed By: #### L 505.5000, L501.9100, L501.5200, L501.2450, L500.2500, L500.3400, L100.0100 ####[facility] [address] [place], [address] BENZODIAZIPINE Negative Normal < 200 ng/mL [facility] Comment on above: Performed By: #### L 505.5000, L501.9100, L501.5200, L501.2450, L500.2500, L500.3400, L100.0100 ####[facility] [address] [place], [place], [phone] COCAINE Negative Normal < 300 ng/mL [facility] Comment on above: Performed By: #### L 505.5000, L501.9100, L501.5200, L501.2450, L500.2500, L500.3400, L100.0100 ####[facility] [address] [place], [place], [phone] ECSTACY Negative Normal < 500 ng/mL [facility] Comment on above: Performed By: #### L 505.5000, L501.9100, L501.5200, L501.2450, L500.2500, L500.3400, L100.0100 ####[facility] [address] [place], [place], [phone] METHADONE Negative Normal < 300 ng/mL [facility] Comment on above: Performed By: #### L 505.5000, L501.9100, L501.5200, L501.2450, L500.2500, L500.3400, L100.0100 ####[facility] [address] [place], [place], [phone] OPIATES Negative Normal < 300 ng/mL [facility] Comment on above: Performed By: #### L 505.5000, L501.9100, L501.5200, L501.2450, L500.2500, L500.3400, L100.0100 ####[facility] [address] [place], [place], [phone] PCP Negative Normal < 25 ng/mL [facility] Comment on above: Performed By: #### L 505.5000, L501.9100, L501.5200, L501.2450, L500.2500, L500.3400, L100.0100 ####[facility] [address] [place], [address] THC Positive Abnormal < 50 ng/mL [facility] Comment on above: Performed By: #### L 505.5000, L501.9100, L501.5200, L501.2450, L500.2500, L500.3400, L100.0100 ####[facility] [address] [place], [address] VISTA UDS PH 5 Normal [facility] Comment on above: Performed By: #### L 505.5000, L501.9100, L501.5200, L501.2450, L500.2500, L500.3400, L100.0100 ####[facility] [address] [place], [place], [id number] Urine amphetamine measuremen tOrdered By: Oscar Fitzgerald on 07-06-2024 Amphetamines Ql (U) Negative <1000 ng/mL [facility] Urine barbiturates measureme ntOrdered By: Oscar Fitzgerald on 07-06-2024 Urine Barbiturates Screen Negative < 200 ng/mL [facility] Urine benzodiazepine levelOr dered By: Oscar Fitzgerald on 07-06-2024 Benzodiazepines Ql (U) Negative < 200 ng/mL [facility] Urine cocaine levelOrdered B y: Oscar Fitzgerald on 07-06-2024 Cocaine Ql (U) Negative < 300 ng/mL [facility] Urine njdqe-7-aeygvgjlpbseny abinol (THC) measurementOrdered By: Oscar Fitzgerald on 07-06-2024 Cannabinoids Screen Ql (U) Positive High < 50 ng/mL [facility] Urine methylenedioxymethamph etamine (MDMA) measurementOrdered By: Oscar Fitzgerald on 07-06-2024 MDMA (Ecstasy) Screen Negative < 500 ng/mL [facility] Urine phencyclidine (PCP) de tectionOrdered By: Oscar Fitzgerald on 07-06-2024 Phencyclidine Ql (U) Negative < 25 ng/mL [facility] Vitamin B12on 07-06-2024 Cobalamin (Vitamin B12) [Mass/Vol] 962 pg/mL High 211-911 [facility] Comment on above: Performed By: #### B TS, L503.0105, L3890.6005 ####[facility] [address] [place], [address] Vitamin B12 measurementOrder ed By: Riley Martinez on 07-06-2024 Cobalamin (Vitamin B12) [Mass/Vol] 962 pg/mL High 211-911 [facility] Internal Medicine Office Vis iton 04-30-2024 Internal Medicine Office Visit [facility] 36on 04-20-2024 36 Spoke to patient, sh e states she went back to her old doctor and will have these ordered through them. [facility] 36on 04-19-2024 36 Attempted to call no answer, no vm [facility] [address] [facility] 36on 04-16-2024 36 Name of caller: Brandon Pa Contact phone number: [phone] Relationship to Patient: patient Provider: Dr. Siegel Practice: [facility] Chief Complaint/Reason for Call: Pt called to schedule her annual mammogram and stated she had a lump in her left armpit and she will need a bilateral diagnostic mammogram with a left breast ultrasound. Please let pt know when these orders have been placed, so she can get her apt scheduled. Please advise. Thank you. Best time of day caller can be reached: Any Patient advised that office/PCP has 24-48 business hours to return their call: Yes [facility] 36on 04-06-2024 [address] [facility] 36 [address] med [address] and send in rx [facility] 36 Name of caller: Brandon bill Contact phone number: [phone] Relationship to Patient: patient Provider: Robbin Practice: [facility] Chief Complaint/Reason for Call: Felton called in requesting for her Spironolactone be sent to the [facility] pharmacy. She stated the hospital changed the dosage from 25 MG to 75 MG. Please advise and notify the patient when this has been sent over. Best time of day caller can be reached: any Patient advised that office/PCP has 24-48 business hours to return their call: No [address] 03-30-2024 [address] 03-29-2024 36 Cancelled. [place] [address] Okay to cancel order. [place] [address] Noted. Please have t hem reach out when ready and we can re-place the order. [place] [address] Spoke to Felton, she is getting caught up on medical bills and cannot have this done until sometime next year. [place] [address] Please reach out to Felton and see if she still plans to get this completed. Thank you. [place] [address] Pt given orders for [address]-Lung Screen on 02/05/24. Numerous attempts were made to schedule patient. No response from patient to schedule. Okay to cancel orders? [address] 03-03-2024 36 Spoke to patient, no questions. [place] [address]on 03-02-2024 36 ----- Message from TAMMY Asif CNP sent at 03/02/2024 6:40 AM EDT ----- Negative Cologuard-recommend rescreening in 3 years. Attempted to call, VM full. [facility] 36 Medication name: spironolactone (Aldactone) 25 MG [...] prior to picking up the medication: Yes [facility] Office Visiton 02-05-2024 Follow-up visit [id number] Mars Pa 1970 F Date Provider Department Center 02/05/2024 [id number] BOYKIN [facility] Family History Problem Relation Age of Onset No Known Problems Mother Cancer Father Comments: testical Family Status - Relation Status Age at Mother Alive Father Level of Service:G0439 [place] PPPS, SUBSEQ VISIT Reason for Visit and Comments: Medicare Annual Wellness Visit Initial [676] [facility] PATINSon 02-05-2024 PATINS Please call Central Scheduling at [phone] to schedule your outpatient test Personalized Preventative Plan for Felton Pa - 02/05/2024 Medicare offers a range of [...] Recommendations: A preventive eye exam by an radiation protection specialist is recommended every 1-2 years to screen for glaucoma, cataracts, macular degeneration, and other eye disorders. A preventive dental visit is recommended every 6 months. Try to get at least 150 minutes of exercise per week or 10,000 steps per day on a pedometer. You need 1200-1500mg of calcium and 7716-1559 international units of vitamin D per day. [...] when riding a bicycle or a motorcycle [facility] Progress Noteon 02-05-2024 Progress Note Encouraged cessation. Normal [facility] Progress Note Controlled. Continue Lexapro 20 mg daily Normal [facility] Progress Note Controlled. Blood pressure 111/19, continue lisinopril 5 mg daily and spironolactone 25 mg daily Normal [facility] Progress Note Stable. Managed by neurology Normal [facility] Progress Note Symptoms controlled on Lexapro [address] [facility] Progress Note 1) 30 day supply to [facility] in [place] Then send 90 to mail order 2 Monik needs to go over labs Patient was identified by name and Date of . Health Maintenance Addressed with Patient at Visit: MMR- declined Pneumo-declined Hep A-declined Zoster-declined Covid-declined Mammo-pended Lung CT- pended Colon- cologaurd Pap-NEEDS AT [facility] CANDIE faxed to Neuro at [place] [address]. [place] [facility] Progress Note [facility]ILY [facility] [address] [facility] [address] [facility] [address] Dept: [phone] Dept Chief Complaint: Felton Pa is an 53 y.o. female here for [...] with tomosynthesis Annual physical exam Relevant Orders [facility] [place] [facility]ACH[facility] [employer]CHANIC Nicotine dependence, cigarettes, uncomplicated Relevant Orders CT [...] of current healthcare providers: Patient Care Team: Sree Siegel MD as PCP - General (Family [...] Date: 04/06/2025 Cologuard? 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 HENT: Negative. Respiratory: Negative. Cardiovascular: Negative. Gastrointestinal: Negative. Genitourinary: Negative for difficulty urinating and menstrual problem (had ablation in 40s). Musculoskeletal (more content not included)... [facility] 36on 01-12-2024 36 Patient is out of [...] prior to picking up the medication: Yes [facility] 36 Message released to patient as written. [...] diet. Dietary information can be found at https://www.heart.org/en /healthy-living/healthy- eating Patient's further questions if applicable: Patient verbalized understanding. No further questions. Were all questions from office addressed or relayed to the patient from encounter: Yes [facility] 36 ----- Message from TAMMY Asif CNP [...] diet. Dietary information can be found at https://www.heart.org/en /healthy-living/healthy- eating Called pt, no answer and vm is full. Normal [facility] 36on 01-08-2024 [address] [facility] 36 ----- Message from TAMMY Asif CNP [...] diet. Dietary information can be found at https://www.heart.org/en /healthy-living/healthy- eating [facility] Office Visiton 01-07-2024 Follow-up visit [id number] Mars Pa 1970 Date Provider Department Center 01/07/2024 [id number] Family History Problem Relation Age of Onset No Known Problems Mother Cancer Father Comments: testical Family Status - Relation Status Age at Mother Alive Father Level of Service:94104 OK OFFICE/OUTPATIENT NEW MODERATE MDM 45 MINUTES Reason for Visit and Comments: New Patient [542] Establish Care [42] - Saw Dr Nichols in [place] Medication Check [[id number]] Health Maintenance [872] - Hiv/hep c screening- refuse Colonoscopy- refuse Mmr vaccine- done as child Hep b vaccine- refuse Pap/izabela- not done in years will sched Normal [facility] Progress Noteon 01-07-2024 Progress Note Remission, continue Lexapro 20 mg daily Normal [facility] Progress Note Controlled, continue lisinopril 5 mg and spironolactone 25 mg. Normal [facility] Progress Note Stable, has had no recent angina Normal [facility] Progress Note Stable, does not remember when her last seizure was currently is not able to drive. Continues on a gram 100 mg daily Normal [facility] Progress Note 01/07/2024 Felton Pa (: 1970) is a 53 y.o. female , Established patient, here for evaluation of the following chief complaint(s): New Patient, Establish Care (Saw Dr Nichols in [place] ), Medication Check, and Health Maintenance (Hiv/hep [...] metabolic panel 3. Coronary artery disease 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 angina pectoris Assessment & Plan: [...] signature was used to authenticate this note. Sree Siegel MD 01/07/2024 10:[address] [facility] Progress Note Patient verified by last name and date of . [facility] 36on 01-06-2024 36 Called to [facility] for appointment with Dr. Siegel on 01/07/24. [...] insurance card and photo ID. Thank you! [facility] Absolute lymphocyte countOrd ered By: Callie Nichols on 04-09-2023 Lymphocytes Auto (Unsp spec) [#/Vol] 1.67 10*3/uL 0.83-4.51 [facility] Basophil percentageOrdered B y: Callie Nichols on 04-09-2023 Basophils/100 WBC (Bld) 0.7 % 0-1 [facility] Bilirubin [Mass/Vol] 0.50 mg/dL 0.20-1.00 [facility] Comment on above: For patients on eltr ombopag therapy, use of Dimension [place] TBIL is not recommended. Chloride [Moles/Vol] 107 mmol/L 98-107 [facility] Cholesterol [Mass/Vol] 171 mg/dL <200 [facility] Comment on above: <200 mg/dL Desirable 200-240 mg/dL Borderline >240 mg/dL High Risk Eosinophils/100 WBC (Bld) 1.3 % 0-5 [facility] Glucose [Mass/Vol] 101 mg/dL 74-106 [facility] Comment on above: Fasting Glucose resu lt from 100 to 125 mg/dL suggests IMPAIRED HOMEOSTASIS per A.D.A. criteria. Neutrophils (Bld) [#/Vol] 2.3 10*3/uL 2.0-7.7 [facility] Neutrophils/100 WBC (Bld) 51.0 % 47-70 [facility] Potassium [Moles/Vol] 3.7 mmol/L 3.5-5.1 [facility] Protein [Mass/Vol] 7.3 g/dL 6.4-8.2 [facility] Sodium [Moles/Vol] 140 mmol/L 136-145 [facility] Triglyceride [Mass/Vol] 111 mg/dL <199 [facility] Comment on above: The drugs N-Acetylcy steine and Metamizole may falsely depress this assay.Serum Triglycerides Reference Interval Normal <150 mg/dL Borderline high 150 - 199 mg/dL High 200 - 499 mg/dL Very High > or = 500 mg/dL WBC (Bld) [#/Vol] 4.5 10*3/uL 4.4-11.0 [facility] Blood erythrocytes count (nu mber/volume)Ordered By: Callie Nichols on 04-09-2023 RBC (Bld) [#/Vol] 3.47 10*6/uL 4.2-5.4 [facility] Blood hemoglobin measurement (mass/volume)Ordered By: Callie Nichols on 04-09-2023 Hemoglobin (Bld) [Mass/Vol] 12.3 g/dL 12.0-15.0 [facility] Blood lymphocytes/100 leukoc ytesOrdered By: Callie Nichols on 04-09-2023 Lymphocytes/100 WBC (Bld) 37.4 % 19-41 [facility] Blood monocytes/100 leukocyt esOrdered By: Callie Nichols on 04-09-2023 Monocytes/100 WBC (Bld) 9.4 % 0-10 [facility] Blood platelet mean volumeOr dered By: Callie Nichols on 04-09-2023 Platelet mean volume (Bld) [Entitic vol] 9.7 fL 6.2-12.0 [facility] Determination of erythrocyte mean corpuscular volume (MCV)Ordered By: Callie Nichols on 04-09-2023 MCV (RBC) [Entitic vol] 111.2 fL 81-99 [facility] Hematocrit Auto (Bld) [Volum e fraction]Ordered By: Callie Nichols on 04-09-2023 Hematocrit (Bld) [Volume fraction] 38.6 % 37-47 [facility] Laboratory - Chemistry and C hemistry - challengeOrdered By: Callie Nichols on 04-09-2023 ALP [Catalytic activity/Vol] 97 U/L 45-117 [facility] ALT [Catalytic activity/Vol] 35 U/L 13-56 [facility] CO2 [Moles/Vol] 27.0 mmol/L 21.0-32.0 [facility] Globulin (S) [Mass/Vol] 3.8 g/dL 2.2-4.2 [facility] Urea nitrogen/Creatinine [Mass ratio] 8.0 mg/mg 10-20 [facility] Laboratory - Hematology and Cell countsOrdered By: Callie Nichols on 04-09-2023 Erythrocyte distribution width (RBC) [Entitic vol] 61.4 fL 35.1-43.9 [facility] Erythrocyte distribution width (RBC) [Ratio] 15.0 % 11.6-14.6 [facility] Immature granulocytes/100 WBC (Bld) 0.200 % 0.0-0.9 [facility] Comment on above: IG% - Immature Granu locytes (promyelocytes, myelocytes and metamyelocytes) > 1% indicates that a LEFT SHIFT is Present. MCH (RBC) [Entitic mass] 35.4 pg 27.0-32.0 [facility] Nucleated RBC/100 WBC (Bld) [Ratio] 0 % 0-5 [facility] MCHC Auto (RBC) [Mass/Vol]Or dered By: Callie Nichols on 04-09-2023 MCHC (RBC) [Mass/Vol] 31.9 g/dL 32-36 [facility] No Panel InformationOrdered By: Callie Nichols on 04-09-2023 Estimated GFR (MDRD) Amer 87 mL/min >60 [facility] Comment on above: GFR Calc Estimated GFR (MDRD) Non-Af Amer 72 mL/min >60 [facility] Comment on above: Non- GFR Calc Platelets bldOrdered By: Noel Nichols on 04-09-2023 Platelets (Bld) [#/Vol] 160 10*3/uL 150-450 [facility] Serum or plasma albumin ferdinand urement (mass/volume)Ordered By: Callie Nichols on 04-09-2023 Albumin [Mass/Vol] 3.5 g/dL 3.2-5.0 [facility] Serum or plasma albumin/glob ulin mass ratioOrdered By: Callie Nichols on 04-09-2023 Albumin/Globulin [Mass ratio] 0.9 {ratio} 0.9-2.4 [facility] Serum or plasma calcium ferdinand urement (mass/volume)Ordered By: Callie Nichols on 04-09-2023 Calcium [Mass/Vol] 9.0 mg/dL 8.5-10.1 [facility] Serum or plasma cholesterol in HDL measurement (mass/volume)Ordered By: Callie Nichols on 04-09-2023 Cholesterol in HDL [Mass/Vol] 46 mg/dL >40 [facility] Comment on above: The drugs N-Acetylcy steine and Metamizole may falsely depress this assay. Reference Range HDL <40 mg/dL Low HDL Cholesterol HDL >or= 60 mg/dL High HDL Cholesterol Serum or plasma cholesterol in VLDL measurement (mass/volume)Ordered By: Callie Nichols on 04-09-2023 Cholesterol in VLDL [Mass/Vol] 22 mg/dL 5-40 [facility] Serum or plasma creatinine m easurement (mass/volume)Ordered By: Callie Nichols on 04-09-2023 Creatinine [Mass/Vol] 0.88 mg/dL 0.55-1.02 [facility] Comment on above: The validity of the calculated GFR & GFRAA in patients over 70 years has not been determined. Clinical correlation is essential. Serum or plasma low density lipoprotein (LDL) cholesterol measurement (mass/volume)Ordered By: Callie Nichols on 04-09-2023 Cholesterol in LDL [Mass/Vol] 103 mg/dL 0-130 [facility] Serum or plasma urea nitroge n measurement (mass/volume)Ordered By: Callie Nichols on 04-09-2023 Urea nitrogen [Mass/Vol] 7 mg/dL 7-18 [facility] Thin prep Papanicolaou smear with manual screeningOrdered By: Callie Nichols on 04-09-2023 Thin prep Papanicolaou smear with manual screening 56 U/L 15-37 [facility] Thin prep Papanicolaou smear with manual screening 6 5-15 [facility] Basophil percentageon 2021 Ammonia (P) [Moles/Vol] 11.0 umol/L [facility] Work Phone: Basophil percentageon 2021 Ammonia (P) [Moles/Vol] 35.0 umol/L [facility] Work Phone: No Panel Informationon 03-18 Miscellaneous Test See comment [facility] Work Phone: Comment on above: TEST RESULT LIMITSZo nisamide (Zonegran), Serum 15.2 ug/mL 10.0-40.0 Detection Limit = 2.0 TESTING PERFORMED AT [facility]. ORIGINAL REPORT ON FILE IN LAB CONTAINS ADDITIONAL TEST SITE INFORMATION. Absolute lymphocyte counton 11-08-2021 Lymphocytes Auto (Unsp spec) [#/Vol] 1.57 10*3/uL 0.83-4.51 [facility] Work Phone: Basophil percentageon 2021 Basophils/100 WBC (Bld) 0.4 % 0-1 [facility] Work Phone: Bilirubin [Mass/Vol] 1.50 mg/dL 0.20-1.00 [facility] Work Phone: Comment on above: For patients on eltr ombopag therapy, use of Dimension [place] TBIL is not recommended. Chloride [Moles/Vol] 104 mmol/L 98-107 [facility]: Cholesterol [Mass/Vol] 179 mg/dL <200 [facility] Work Phone: Comment on above: <200 mg/dL Desirable 200-240 mg/dL Borderline >240 mg/dL High Risk Eosinophils/100 WBC (Bld) 1.1 % 0-5 [facility] Work Phone: Glucose [Mass/Vol] 95 mg/dL 74-106 [facility] Work Phone: Neutrophils (Bld) [#/Vol] 4.9 10*3/uL 2.0-7.7 [facility] Work Phone: Neutrophils/100 WBC (Bld) 68.1 % 47-70 [facility] Work Phone: Potassium [Moles/Vol] 3.8 mmol/L 3.5-5.1 [facility] Work Phone: Protein [Mass/Vol] 8.3 g/dL 6.4-8.2 [facility] Work Phone: Sodium [Moles/Vol] 136 mmol/L 136-145 [facility] Work Phone: Triglyceride [Mass/Vol] 59 mg/dL [facility] Work Phone: Comment on above: The drugs N-Acetylcy steine and Metamizole may falsely depress this assay.Serum Triglycerides Reference Interval Normal <150 mg/dL Borderline high 150 - 199 mg/dL High 200 - 499 mg/dL Very High > or = 500 mg/dL WBC (Bld) [#/Vol] 7.2 10*3/uL 4.4-11.0 [facility] Work Phone: Blood erythrocytes count (nu mber/volume)on 11-08-2021 RBC (Bld) [#/Vol] 3.85 10*6/uL 4.2-5.4 [facility] Work Phone: Blood hemoglobin measurement (mass/volume)on 11-08-2021 Hemoglobin (Bld) [Mass/Vol] 14.1 g/dL 12.0-15.0 [facility] Work Phone: Blood lymphocytes/100 leukoc yteson 11-08-2021 Lymphocytes/100 WBC (Bld) 21.7 % 19-41 [facility] Work Phone: Blood monocytes/100 leukocyt eson 11-08-2021 Monocytes/100 WBC (Bld) 8.4 % 0-10 [facility] Work Phone: Blood platelet mean volumeon 11-08-2021 Platelet mean volume (Bld) [Entitic vol] 10.3 fL 6.2-12.0 [facility] Work Phone: Determination of erythrocyte mean corpuscular volume (MCV)on 11-08-2021 MCV (RBC) [Entitic vol] 111.2 fL 81-99 [facility] Work Phone: Hematocrit Auto (Bld) [Volum e fraction]on 11-08-2021 Hematocrit (Bld) [Volume fraction] 42.8 % 37-47 [facility] Work Phone: Laboratory - Chemistry and C hemistry - challengeon 11-08-2021 ALP [Catalytic activity/Vol] 101 U/L 45-117 [facility] Work Phone: ALT [Catalytic activity/Vol] 35 U/L 13-56 [facility] Work Phone: CO2 [Moles/Vol] 25.0 mmol/L 21.0-32.0 [facility] Work Phone: Globulin (S) [Mass/Vol] 4.4 g/dL 2.2-4.2 [facility] Work Phone: Urea nitrogen/Creatinine [Mass ratio] 15.9 mg/mg 10-20 [facility] Work Phone: Laboratory - Hematology and Cell countson 11-08-2021 Erythrocyte distribution width (RBC) [Entitic vol] 54.1 fL 35.1-43.9 [facility] Work Phone: Erythrocyte distribution width (RBC) [Ratio] 13.2 % 11.6-14.6 [facility] Work Phone: Immature granulocytes/100 WBC (Bld) 0.300 % 0.0-0.9 [facility] Work Phone: Comment on above: IG% - Immature Granu locytes (promyelocytes, myelocytes and metamyelocytes) > 1% indicates that a LEFT SHIFT is Present. MCH (RBC) [Entitic mass] 36.6 pg 27.0-32.0 [facility] Work Phone: Nucleated RBC/100 WBC (Bld) [Ratio] 0 % 0-5 [facility] Work Phone: MCHC Auto (RBC) [Mass/Vol]on 11-08-2021 MCHC (RBC) [Mass/Vol] 32.9 g/dL 32-36 [facility] Work Phone: No Panel Informationon 11-08 Estimated GFR (MDRD) Amer 95 mL/min >60 [facility] Work Phone: Comment on above: GFR Calc Estimated GFR (MDRD) Non-Af Amer 78 mL/min >60 [facility] Work Phone: Comment on above: Non- GFR Calc Thyroid Stimulating Hormone (TSH) 1.32 uIU/mL 0.358-3.74 [facility] Work Phone: Platelets bldon 11-08-2021 Platelets (Bld) [#/Vol] 134 10*3/uL 150-450 [facility] Work Phone: Serum or plasma albumin ferdinand urement (mass/volume)on 11-08-2021 Albumin [Mass/Vol] 3.9 g/dL 3.2-5.0 [facility] Work Phone: Serum or plasma albumin/glob ulin mass ratioon 11-08-2021 Albumin/Globulin [Mass ratio] 0.9 {ratio} 0.9-2.4 [facility] Work Phone: Serum or plasma calcium ferdinand urement (mass/volume)on 11-08-2021 Calcium [Mass/Vol] 9.1 mg/dL 8.5-10.1 [facility] Work Phone: Serum or plasma cholesterol in HDL measurement (mass/volume)on 11-08-2021 Cholesterol in HDL [Mass/Vol] 63 mg/dL [facility] Work Phone: Comment on above: The drugs N-Acetylcy steine and Metamizole may falsely depress this assay. Reference Range HDL <40 mg/dL Low HDL Cholesterol HDL >or= 60 mg/dL High HDL Cholesterol Serum or plasma cholesterol in VLDL measurement (mass/volume)on 11-08-2021 Cholesterol in VLDL [Mass/Vol] 12 mg/dL 5-40 [facility] Work Phone: Serum or plasma creatinine m easurement (mass/volume)on 11-08-2021 Creatinine [Mass/Vol] 0.82 mg/dL 0.55-1.02 [facility] Work Phone: Comment on above: The validity of the calculated GFR & GFRAA in patients over 70 years has not been determined. Clinical correlation is essential. Serum or plasma low density lipoprotein (LDL) cholesterol measurement (mass/volume)on 11-08-2021 Cholesterol in LDL [Mass/Vol] 104 mg/dL 0-130 [facility] Work Phone: Serum or plasma urea nitroge n measurement (mass/volume)on 11-08-2021 Urea nitrogen [Mass/Vol] 13 mg/dL 7-18 [facility] Work Phone: Thin prep Papanicolaou smear with manual screeningon 11-08-2021 Thin prep Papanicolaou smear with manual screening 35 U/L 15-37 [facility] Work Phone: Thin prep Papanicolaou smear with manual screening 7 5-15 [facility] Work Phone: .Auto Diffon 08-11-2018 Ammonia (P) [Mass/Vol] 0.20 10 3/mcL Normal 0.15-1.00 [facility] ([place]) Comment on above: Performed By: #### C BC, MATTHEWIFF, ANEU #### [place] [address] #### LIP, CMP, GFR #### [address] [address] Basophils (Bld) [#/Vol] 0.00 10 3/mcL Normal 0.00-0.19 [facility] ([place]) Comment on above: Performed By: #### C BC, ADIFF, ANEU #### [place] [address] #### LIP, CMP, GFR #### [address] [address] Basophils/100 WBC (Bld) 1.0 % Normal 0.0-2.5 [facility] ([place]) Comment on above: Performed By: #### MATTHEW CLINTONIFF, ANEU #### [place] [address] #### LIP, CMP, GFR #### [address] [address] Eosinophils (Bld) [#/Vol] 0.00 10 3/mcL Normal 0.00-0.40 [facility] ([place]) Comment on above: Performed By: #### C SUSAN, ADIFF, ANEU #### [place] [address] #### LIP, CMP, GFR #### [address] [address] Eosinophils/100 WBC (Bld) 0.0 % Normal 0.0-7.0 [facility] ([place]) Comment on above: Performed By: #### C BC, ADIFF, ANEU #### [place] [address] #### LIP, CMP, GFR #### [address] [address] Lymphocytes (Bld) [#/Vol] 0.40 10 3/mcL Low 0.77-3.85 [facility] ([place]) Comment on above: Performed By: #### C BC, ADIFF, ANEU #### [address] [address] #### LIP, CMP, GFR #### [address] [address] Lymphocytes/100 WBC (Bld) 7.5 % Low 10.0-50.0 [facility] ([place]) Comment on above: Performed By: #### C BC, ADIFF, ANEU #### [place] [address] [address] #### LIP, CMP, GFR #### [address] [address] Monocytes/100 WBC (Bld) 4.5 % Normal 1.7-13.0 [facility] ([place]) Comment on above: Performed By: #### C BC, ADIFF, ANEU #### [address] [address] #### LIP, CMP, GFR #### [address] [address] Neutrophils/100 WBC (Bld) 87.0 % High 37.0-80.0 [facility] ([place]) Comment on above: Performed By: #### C BC, ADIFF, ANEU #### [address] [address] #### LIP, CMP, GFR #### [address] [address] .GFRon 08-11-2018 GFR Non- 90 ml/min/1.73sqm Normal [facility] ([place]) Comment on above: Result Comment: GFR Population [...] By: #### C BC, ADIFF, ANEU #### [address] [address] #### LIP, CMP, GFR #### [address] [address] GFR 109 ml/min/1.73sqm Normal [facility] ([place]) Comment on above: Result Comment: GFR Population [...] By: #### C BC, ADIFF, ANEU #### [place] [address] #### LIP, CMP, GFR #### [address] [address] .NEUABSon 08-11-2018 Neutrophils (Bld) [#/Vol] 4.20 10 3/mcL Normal 2.85-6.16 [facility] ([place]) Comment on above: Performed By: #### C BC, ADIFF, ANEU #### [place] [address] #### LIP, CMP, GFR #### [address] [address] .Urinalysis Microscopic (AO) on 08-11-2018 RBC (U) [#/Vol] None Seen Normal None Seen [facility] ([place] Comment on above: Performed By: #### U A, UAMICAO #### [place] [address] UA Bacteria 4+ /hpf [facility] ([place]) Comment on above: Performed By: #### U A, UAMICAO #### [place] [address] UA Squam Epithelial 5-10 None Seen [facility] ([place]) Comment on above: Performed By: #### U A, UAMICAO #### [place] [address] UA WBC 0-5 None Seen [facility] ([place] Comment on above: Performed By: #### Emperatriz Sawyer UAMICAO #### [place] [address] CBCon 08-11-2018 Erythrocyte distribution width (RBC) [Ratio] 15.4 % High 11.5-14.5 [facility] ([place]) Comment on above: Performed By: #### C SERA DAVIS ANEU #### [place] [address] #### LIP, CMP, GFR #### [place] [address] Hematocrit (Bld) [Volume fraction] 39.9 % Normal 37.0-47.0 [facility] ([place] Comment on above: Performed By: #### SERA CLINTON, ANEU #### [place] [address] #### LIP, CMP, GFR #### [place] [address] Hemoglobin (Bld) [Mass/Vol] 13.7 G/dL Normal 12.0-16.0 [facility] ([place] Comment on above: Performed By: #### C SERA DAVIS ANEU #### [place] [address] #### LIP, CMP, GFR #### [place] [address] MCH (RBC) [Entitic mass] 37.5 pg High 27.0-31.2 [facility] ([place]) Comment on above: Performed By: #### C BC, ADIFF, ANEU #### [place] [address] #### LIP, CMP, GFR #### [address] [address] MCHC (RBC) [Mass/Vol] 34.3 G/dL Normal 33.0-37.0 [facility] ([place]) Comment on above: Performed By: #### C BC, ADIFF, ANEU #### [place] [address] #### LIP, CMP, GFR #### [address] [address] MCV (RBC) [Entitic vol] 109.5 fL High 80.0-94.0 [facility] ([place]) Comment on above: Performed By: #### C BC, ADIFF, ANEU #### [place] [address] #### LIP, CMP, GFR #### [address] [address] Platelet mean volume (Bld) [Entitic vol] 7.2 fL Low 7.4-10.4 [facility] ([place]) Comment on above: Performed By: #### C BC, ADIFF, ANEU #### [place] [address] #### LIP, CMP, GFR #### [address] [address] Platelets (Bld) [#/Vol] 105 10 3/mcL Low 130-400 [facility] ([place]) Comment on above: Performed By: #### C BC, ADIFF, ANEU #### [place] [address] #### LIP, CMP, GFR #### [address] [address] RBC (Bld) [#/Vol] 3.65 10 6/mcL Low 4.20-5.40 [facility] ([place]) Comment on above: Performed By: #### C BC, ADIFF, ANEU #### [address] [address] #### LIP, CMP, GFR #### [address] [address] WBC (Bld) [#/Vol] 4.80 10 3/mcL Normal 4.60-10.80 [facility] ([place]) Comment on above: Performed By: #### C BC, ADIFF, ANEU #### [place] [address] #### LIP, CMP, GFR #### [address] [address] CMPon 08-11-2018 Albumin [Mass/Vol] 4.3 G/dL Normal 3.5-5.0 [facility] ([place]) Comment on above: Performed By: #### C BC, ADIFF, ANEU #### [place] [address] #### LIP, CMP, GFR #### [address] [address] Albumin/Globulin [Mass ratio] 1.1 {ratio} Normal 1.1-2.5 [facility] ([place] Comment on above: Performed By: #### C BC, ADIFF, ANEU #### [address] [address] #### LIP, CMP, GFR #### [address] [address] ALP [Catalytic activity/Vol] 109 U/L Normal 40-135 [facility] ([place]) Comment on above: Performed By: #### C BC, ADIFF, ANEU #### [address] [address] #### LIP, CMP, GFR #### [address] [address] ALT [Catalytic activity/Vol] 75 U/L High 10-35 [facility] ([place]) Comment on above: Performed By: #### C BC, ADIFF, ANEU #### [address] [address] #### LIP, CMP, GFR #### [address] [address] AST [Catalytic activity/Vol] 183 U/L High 10-40 [facility] ([place]) Comment on above: Performed By: #### C BC, ADIFF, ANEU #### [address] [address] #### LIP, CMP, GFR #### [address] [address] Bili Total 2.7 mg/dL High 0.2-1.0 [facility] ([place]) Comment on above: Performed By: #### C BC, ADIFF, ANEU #### [place] [address] #### LIP, CMP, GFR #### [address] [address] Calcium [Mass/Vol] 9.0 mg/dL Normal 8.4-10.2 [facility] ([place]) Comment on above: Performed By: #### C BC, ADIFF, ANEU #### [place] [address] #### LIP, CMP, GFR #### [address] [address] Chloride [Moles/Vol] 93 mmol/L Low 98-107 [facility] ([place]) Comment on above: Performed By: #### C BC, ADIFF, ANEU #### [place] [address] #### LIP, CMP, GFR #### [address] [address] CO2 [Moles/Vol] 24 mmol/L Normal 22-29 [facility] ([place]) Comment on above: Performed By: #### C BC, ADIFF, ANEU #### [address] [address] #### LIP, CMP, GFR #### [address] [address] Creatinine [Mass/Vol] 0.70 mg/dL Normal 0.55-1.02 [facility] ([place]) Comment on above: Performed By: #### C BC, ADIFF, ANEU #### [address] [address] #### LIP, CMP, GFR #### [address] [address] Electrolyte Balance 19.0 mEq/L Normal [facility] ([place]) Comment on above: Performed By: #### C BC, ADIFF, ANEU #### [address] [address] #### LIP, CMP, GFR #### [address] [address] Globulin (S) [Mass/Vol] 4.0 G/dL Normal [facility] ([place]) Comment on above: Performed By: #### C BC, ADIFF, ANEU #### [place] [address] #### LIP, CMP, GFR #### [address] [address] Glucose [Mass/Vol] 148 mg/dL High 70-105 [facility] ([place]) Comment on above: Performed By: #### C BC, ADIFF, ANEU #### [address] [address] #### LIP, CMP, GFR #### [address] [address] Potassium [Moles/Vol] 3.3 mmol/L Low 3.5-5.1 [facility] ([place]) Comment on above: Performed By: #### C BC, ADIFF, ANEU #### [address] [address] #### LIP, CMP, GFR #### [address] [address] Protein [Mass/Vol] 8.3 G/dL High 6.4-8.2 [facility] ([place]) Comment on above: Performed By: #### C BC, ADIFF, ANEU #### [address] [address] #### LIP, CMP, GFR #### [address] [address] Sodium [Moles/Vol] 136 mmol/L Normal 136-145 [facility] ([place]) Comment on above: Performed By: #### C BC, ADIFF, ANEU #### [address] [address] #### LIP, CMP, GFR #### [facility] [address] [place] [address] Urea nitrogen [Mass/Vol] 8 mg/dL Normal 7-18 [facility] ([place]) Comment on above: Performed By: #### C BC, ADIFF, ANEU #### [address] [address] #### LIP, CMP, GFR #### [address] [address] Urea nitrogen/Creatinine [Mass ratio] 11 ratio Normal 7-27 [facility] ([place]) Comment on above: Performed By: #### C BC, ADIFF, ANEU #### [address] [address] #### LIP, CMP, GFR #### [address] [address] LIPon 08-11-2018 Lipase Level 133 U/L Normal 73-393 [facility] ([place]) Comment on above: Performed By: #### C BC, ADIFF, ANEU #### [address] [address] #### LIP, CMP, GFR #### [facility] [address] [place] [address] UAon 08-11-2018 Color (U) Red [facility] ([place]) Comment on above: Performed By: #### U A, UAMICAO #### [address] [address] Glucose (U) [Mass/Vol] 100 mg/dL Negative [facility] ([place]) Comment on above: Performed By: #### U A, UAMICAO #### [address] [address] Ketones Ql (U) >=160 Negative [facility] ([place]) Comment on above: Performed By: #### U A, UAMICAO #### [place] [address] UA Appear Cloudy Clear [facility] ([place]) Comment on above: Performed By: #### U A, UAMICAO #### [place] [address] UA Blood Small Negative [facility] ([place]) Comment on above: Performed By: #### U A, UAMICAO #### [place] [address] UA Leuk Est Negative Normal Negative [facility] ([place]) Comment on above: Performed By: #### U A, UAMICAO #### [place] [address] UA Nitrite Positive Negative [facility] ([place]) Comment on above: Performed By: #### U A, UAMICAO #### [place] [address] UA pH 6.5 Normal 5.0 - 8.0 [facility] ([place]) Comment on above: Performed By: #### U A, UAMICAO #### [place] [address] UA Protein >=300 Negative [facility] ([place]) Comment on above: Performed By: #### U A, UAMICAO #### [place] [address] UA Spec Grav 1.025 Normal 1.015-1.025 [facility] ([place]) Comment on above: Performed By: #### U A, UAMICAO #### [place] [address] UA Specimen Type Clean Catch Normal [facility] ([place]) Comment on above: Performed By: #### U A, UAMICAO #### [place] [address] UA Urobilinogen 2.0 E.U./dL 0.2-1.0 [facility] ([place]) Comment on above: Performed By: #### U BRI SawyerMICHANANE #### [facility] [address] [place] [address] Urobilinogen Qn (U) Moderate Negative [facility] ([place]) Comment on above: Performed By: #### U Digna UAMICAO #### [place] [address] [place] [address] US ABDOMEN LIMITEDon 019 US ABDOMEN LIMITED ORIGINAL US ABDOMEN [...] PM Sign Date: 08/11/2018 5:59:02 PM Normal [facility] ([place]) MA MAMMOGRAM SCREENING BILAT ERAL W/TOMOon 05-13-2018 MA MAMMOGRAM SCREENING BILATERAL W/REGGIE ORIGINAL FROM: [facility] [address] [place], [place] [address] PROCEDURE FOR: [facility] [address] [place] [address] Home: PID#: [id number] Exam#: [id number] : 1970 Age: 48 TO: [employer] [address] [place] [address] #[id number] BILATERAL DIGITAL SCREENING MAMMOGRAM 3D/2D WITH CAD WITH MEDIOLATERAL OBLIQUE CRANIOCAUDAL: 05/13/2018 Comparison is made to exams dated: 05/30/2016 ultrasound and 05/07/2016 mammogram - [facility]. There are scattered fibroglandular elements in both breasts. Current study was also evaluated with a Computer Aided Detection (CAD) system. No significant masses, calcifications, or other findings are seen in either breast. There has been no significant interval change. IMPRESSION: NEGATIVE There is no mammographic evidence of malignancy. A 1 year screening mammogram is recommended.(05/14/2019) AUBREY ZAMORANO MD ab/saran:05/14/2018 10:02:40 Hr Receptionist(s): RT GIA(R), [facility] letter sent: Normal BI-RADS 1&2 Mammogram BI-RADS: 1 Negative Normal [facility] ([place]) MRI BRAIN W/ + W/O CONTRASTo n [...] T2 hyperintensities in the cerebral white matter; vaz-white matter differentiation is maintained. There is no [...] PM Sign Date: 05/07/2018 4:15:20 PM Normal [facility] ([place]) MITOon 02-27-2017 Mitochondrial Ab Neg 20 Normal Neg 20 [facility] ([place]) Comment on above: Result Comment: Neg 20 Performed By: #### G FR, CMP, CBC, DIFF, MORPH, ALC, AMM ####[place] [place], [place] [address] SMUSCon 02-27-2017 Smooth Muscle Ab Neg 20 Normal Neg 20 [facility] ([place]) Comment on above: Result Comment: Neg 20 Performed By: #### G FR, CMP, CBC, DIFF, MORPH, ALC, AMM ####[place] [address] [place], [place] [address] CUSon 02-26-2017 Copper (s) 93 UG/DL Normal 85-155 [facility] ([place]) Comment on above: Result Comment: This test was developed and its performance characteristics determined by [facility] [place] ([facility]). It has not been cleared or approved by the FDA. -[facility] is regulated under CLIA as qualified to perform high-complexity testing. This test is used for clinical purposes. It should not be regarded as investigational or for research.Performed By:[facility] [place], [place] [address]Fnw Director: KEANU CandelariaIA#: [id number]#: Performed By: #### G FR, CMP, CBC, DIFF, MORPH, ALC, AMM ####[place] [address] [place], [place] [address] .Auto Diffon 02-25-2017 Basophils Auto #/vol (Bld) 0.00 10 3/mcL Normal 0.00-0.27 [facility] ([place]) Comment on above: Performed By: #### G FR, CMP, CBC, DIFF, MORPH, ALC, AMM ####[place] [place], [place] [address] Basophils/100 WBC Auto (Bld) 0.3 % Normal 0.0-2.5 [facility] ([place]) Comment on above: Performed By: #### G FR, CMP, CBC, DIFF, MORPH, ALC, AMM ####[address] [place], [place] [address] Eosinophils 0.10 10 3/mcL Normal 0.00-0.65 [facility] ([place]) Comment on above: Performed By: #### G FR, CMP, CBC, DIFF, MORPH, ALC, AMM ####[address] [place], [place] [address] Eosinophils/100 leukocytes 1.5 % Normal 0.0-6.0 [facility] ([place]) Comment on above: Performed By: #### G FR, CMP, CBC, DIFF, MORPH, ALC, AMM ####[place] [place], [place] [address] Lymphocytes 1.20 10 3/mcL Normal 0.90-4.32 [facility] ([place]) Comment on above: Performed By: #### G FR, CMP, CBC, DIFF, MORPH, ALC, AMM ####[place] [place], [place] [address] Lymphocytes/100 leukocytes 12.5 % Low 20.0-40.0 [facility] ([place]) Comment on above: Performed By: #### G FR, CMP, CBC, DIFF, MORPH, ALC, AMM ####[place] [address] [place], [place] [address] Monocytes 0.60 10 3/mcL Normal 0.09-1.40 [facility] ([place]) Comment on above: Performed By: #### G FR, CMP, CBC, DIFF, MORPH, ALC, AMM ####[address] [place], [place] [address] Monocytes/100 leukocytes 6.5 % Normal 2.0-13.0 [facility] ([place]) Comment on above: Performed By: #### G FR, CMP, CBC, DIFF, MORPH, ALC, AMM ####[address]osi [address] [place], [place] [address] Neutrophils/100 WBC Auto (Bld) 79.2 % High 50.0-75.0 [facility] ([place]) Comment on above: Performed By: #### G FR, CMP, CBC, DIFF, MORPH, ALC, AMM ####[address]osi [address] [place], [place] [address] .GFRon 02-25-2017 eGFR (non-black) mL/min/{1.73_m2} Normal [facility] ([place]) Comment on above: Result Comment: GFR Population [...] CMP, CBC, DIFF, MORPH, ALC, AMM ####[address] [place], [place] [address] .NEUABSon 02-25-2017 Neutrophils 7.40 10 3/mcL Normal 2.25-8.10 [facility] ([place]) Comment on above: Performed By: #### G FR, CMP, CBC, DIFF, MORPH, ALC, AMM ####[address]osi [address] [place], [place] [address] ANAon 02-25-2017 POONAM Titer 40 {titer} Normal Neg 40 [facility] ([place]) Comment on above: Performed By: #### G FR, CMP, CBC, DIFF, MORPH, ALC, AMM ####[address] [place], [place] [address] BILADon 02-25-2017 Bili Direct 3.4 mg/dL High 0.0-0.4 [facility] ([place]) Comment on above: Performed By: #### G FR, CMP, CBC, DIFF, MORPH, ALC, AMM ####[address] [place], [place] [address] CBCon 02-25-2017 Erythrocyte distribution width Auto Ratio (RBC) 14.5 % Normal 11.5-15.5 [facility] ([place]) Comment on above: Performed By: #### G FR, CMP, CBC, DIFF, MORPH, ALC, AMM ####[address] [place], [place] [address] Erythrocytes (RBC) 2.53 10 6/mcL Low 4.10-5.30 [facility] ([place]) Comment on above: Performed By: #### G FR, CMP, CBC, DIFF, MORPH, ALC, AMM ####[address] [place], [place] [address] Hematocrit (HCT) 27.5 % Low 34.0-46.0 [facility] ([place] Comment on above: Performed By: #### G FR, CMP, CBC, DIFF, MORPH, ALC, AMM ####[address] [place], [place] [address] Hemoglobin mass conc (Bld) 9.6 G/dL Low 12.0-16.0 [facility] ([place] Comment on above: Performed By: #### G FR, CMP, CBC, DIFF, MORPH, ALC, AMM ####[address]osi [address] [place], [place] [address] MCH 37.7 pg High 27.0-33.0 [facility] ([place]) Comment on above: Performed By: #### G FR, CMP, CBC, DIFF, MORPH, ALC, AMM ####[address] [place], [place] [address] MCHC mass conc (RBC) 34.7 G/dL Normal 32.0-36.0 [facility] ([place]) Comment on above: Performed By: #### G FR, CMP, CBC, DIFF, MORPH, ALC, AMM ####[address] [place], [place] [address] MCV 108.5 fL High 80.0-99.0 [facility] ([place]) Comment on above: Performed By: #### G FR, CMP, CBC, DIFF, MORPH, ALC, AMM ####[address] [place], [place] [address] Platelet mean volume (PMV) 10.5 fL Normal 6.6-10.5 [facility] ([place]) Comment on above: Performed By: #### G FR, CMP, CBC, DIFF, MORPH, ALC, AMM ####[address] [place], [place] [address] Platelets 102 10 3/mcL Low 150-450 [facility] ([place]) Comment on above: Performed By: #### G FR, CMP, CBC, DIFF, MORPH, ALC, AMM ####[address] [place], [place] [address] WBC (Leukocytes) 9.40 10 3/mcL Normal 4.50-10.80 [facility] ([place]) Comment on above: Performed By: #### G FR, CMP, CBC, DIFF, MORPH, ALC, AMM ####[address] [place], [place] [address] CMPon 02-25-2017 Calcium 8.0 mg/dL Low 8.4-10.1 [facility] ([place]) Comment on above: Performed By: #### G FR, CMP, CBC, DIFF, MORPH, ALC, AMM ####[address] [place], [place] [address] BUN/Creatinine Ratio 4.8 ratio Low 10.0-22.0 [facility] ([place]) Comment on above: Performed By: #### G FR, CMP, CBC, DIFF, MORPH, ALC, AMM ####[address] [place], [place] [address] Creatinine 0.63 mg/dL Normal 0.50-1.20 [facility] ([place] Comment on above: Performed By: #### G FR, CMP, CBC, DIFF, MORPH, ALC, AMM ####[address] [place], [place] [address] Alanine aminotransferase (ALT) 120 U/L High 10-49 [facility] ([place]) Comment on above: Performed By: #### G FR, CMP, CBC, DIFF, MORPH, ALC, AMM ####[address]osi [address] [place], [place] [address] Albumin/Globulin Ratio 0.8 {ratio} Low 0.9-1.6 [facility] ([place]) Comment on above: Performed By: #### G FR, CMP, CBC, DIFF, MORPH, ALC, AMM ####[address] [place], [place] [address] Alk Phos 148 U/L High 38-126 [facility] ([place]) Comment on above: Performed By: #### G FR, CMP, CBC, DIFF, MORPH, ALC, AMM ####[address] [place], [place] [address] Bili Total 3.9 mg/dL High 0.2-1.2 [facility] ([place]) Comment on above: Performed By: #### G FR, CMP, CBC, DIFF, MORPH, ALC, AMM ####[address] [place], [place] [address] Globulin 2.7 G/dL Normal 1.5-3.8 [facility] ([place] Comment on above: Performed By: #### G FR, CMP, CBC, DIFF, MORPH, ALC, AMM ####[address] [place], [place] [address] Protein 4.8 G/dL Low 6.0-8.5 [facility] ([place]) Comment on above: Performed By: #### G FR, CMP, CBC, DIFF, MORPH, ALC, AMM ####[address]osi [address] [place], [place] [address] Albumin 2.1 G/dL Low 3.2-4.8 [facility] ([place]) Comment on above: Performed By: #### G FR, CMP, CBC, DIFF, MORPH, ALC, AMM ####[address]osi [address] [place], [place] [address] Aspartate aminotransferase (AST) 257 U/L High 8-34 [facility] ([place]) Comment on above: Performed By: #### G FR, CMP, CBC, DIFF, MORPH, ALC, AMM ####[address] [place], [place] [address] Chloride 98 mmol/L Normal 98-110 [facility] ([place]) Comment on above: Performed By: #### G FR, CMP, CBC, DIFF, MORPH, ALC, AMM ####[address] [place], [place] [address] CO2 30 mmol/L Normal 22-32 [facility] ([place]) Comment on above: Performed By: #### G FR, CMP, CBC, DIFF, MORPH, ALC, AMM ####[address] [place], [place] [address] Electrolyte Balance 9.0 mEq/L Normal 4.0-15.0 [facility] ([place]) Comment on above: Performed By: #### G FR, CMP, CBC, DIFF, MORPH, ALC, AMM ####[address] [place], [place] [address] Glucose mass conc 104 mg/dL Normal 70-110 [facility] ([place]) Comment on above: Performed By: #### G FR, CMP, CBC, DIFF, MORPH, ALC, AMM ####[address] [place], [place] [address] Potassium molar conc 4.0 mmol/L Normal 3.5-5.0 [facility] ([place]) Comment on above: Performed By: #### G FR, CMP, CBC, DIFF, MORPH, ALC, AMM ####[address] [place], [place] [address] Sodium 137 mmol/L Normal 136-145 [facility] ([place]) Comment on above: Performed By: #### G FR, CMP, CBC, DIFF, MORPH, ALC, AMM ####[address] [place], [place] [address] Urea nitrogen 3.0 mg/dL Low 8.0-22.0 [facility] ([place]) Comment on above: Performed By: #### G FR, CMP, CBC, DIFF, MORPH, ALC, AMM ####[address] [place], [place] [address] Depart Summaryon 02-25-2017 Depart Summary Normal [facility] ([place]) Discharge Summaryon 02-26-20 17 Discharge Summary Normal [facility] ([place]) HEPACon 02-25-2017 Hep A IgM Ab Negative Normal Negative [facility] ([place]) Comment on above: Performed By: #### G FR, CMP, CBC, DIFF, MORPH, ALC, AMM ####[address] [place] [id number] Hep A IgM Ab Int No serological evide nce of a current Hepatitis A infection. Normal [facility] ([place]) Comment on above: Performed By: #### G FR, CMP, CBC, DIFF, MORPH, ALC, AMM ####[address] [place], [place] [address] Hep B Core IgM Ab Negative Normal Negative [facility] ([place]) Comment on above: Result Comment: No s erological evidence of ACUTE Hepatitis B infection. Performed By: #### G FR, CMP, CBC, DIFF, MORPH, ALC, AMM ####[address] [place], [place] [address] Hep B Surf Ag Negative Normal Negative [facility] ([place] Comment on above: Performed By: #### G FR, CMP, CBC, DIFF, MORPH, ALC, AMM ####[address] [place], [place] [address] Hep C Ab Negative Normal Negative [facility] ([place] Comment on above: Performed By: #### G FR, CMP, CBC, DIFF, MORPH, ALC, AMM ####[address] [place], [place] [address] Hep C Ab Int No serological evide nce of Hepatitis C infection, although levels of anti-HCV may be undetectable in early infection. Normal [facility] ([place]) Comment on above: Performed By: #### G FR, CMP, CBC, DIFF, MORPH, ALC, AMM ####[address] [place], [place] [address] Inpatient Patient Summaryon 02-25-2017 Inpatient Patient Summary Normal [facility] ([place]) Internal Medicine Progress N oteon 02-25-2017 Internal Medicine Progress Note Normal [facility] ([place]) UAon 02-25-2017 UA Appear Clear Normal Clear [facility] ([place] Comment on above: Performed By: #### G FR, CMP, CBC, DIFF, MORPH, ALC, AMM ####[address] [place], [place] [address] UA Blood Negative Normal Neg-Trace [facility] ([place] Comment on above: Performed By: #### G FR, CMP, CBC, DIFF, MORPH, ALC, AMM ####Y[address] [place], [place] [address] UA Leuk Est Trace Normal Negative [facility] ([place]) Comment on above: Performed By: #### G FR, CMP, CBC, DIFF, MORPH, ALC, AMM ####[address] [place], [place] [address] UA Nitrite Negative Normal Negative [facility] ([place] Comment on above: Performed By: #### G FR, CMP, CBC, DIFF, MORPH, ALC, AMM ####[address] [place], [place] [address] UA pH 8.0 Normal 5.0 - 8.0 [facility] ([place] Comment on above: Performed By: #### G FR, CMP, CBC, DIFF, MORPH, ALC, AMM ####[address] [place], [place] [address] UA Protein Negative Normal Negative [facility] ([place] Comment on above: Performed By: #### G FR, CMP, CBC, DIFF, MORPH, ALC, AMM ####[address] [place] [address] UA Spec Grav 1.010 Normal 1.006-1.029 [facility] ([place]) Comment on above: Performed By: #### G FR, CMP, CBC, DIFF, MORPH, ALC, AMM ####[address] [place], [place] [address] UA Specimen Type Clean Catch Normal [facility] ([place] Comment on above: Performed By: #### G FR, CMP, CBC, DIFF, MORPH, ALC, AMM ####[address] [place] [address] UA Urobilinogen 1.0 E.U./dL Normal 0.2-1.0 [facility] ([place] Comment on above: Performed By: #### G FR, CMP, CBC, DIFF, MORPH, ALC, AMM ####[address] [place] [address] Urine, color Dark Yellow Normal [facility] ([place] Comment on above: Performed By: #### G FR, CMP, CBC, DIFF, MORPH, ALC, AMM ####[address] [place] [address] Urine, glucose 100 mg/dL Abnormal Negative [facility] ([place] Comment on above: Performed By: #### G FR, CMP, CBC, DIFF, MORPH, ALC, AMM ####[address] [place] [address] Urine, ketones presence Negative Normal Neg-Trace [facility] ([place]) Comment on above: Performed By: #### G FR, CMP, CBC, DIFF, MORPH, ALC, AMM ####[address] [place], [place] [address] Urine, urobilinogen Moderate Abnormal Neg-Trace [facility] ([place] Comment on above: Performed By: #### G FR, CMP, CBC, DIFF, MORPH, ALC, AMM ####[address] [place], [place] [address] .Auto Diffon 02-24-2017 Basophils Auto #/vol (Bld) 0.00 10 3/mcL Normal 0.00-0.27 [facility] ([place]) Comment on above: Performed By: #### T OXSC, UA, UAMICAO ####[address] [place], [place] [address] Basophils/100 WBC Auto (Bld) 0.2 % Normal 0.0-2.5 [facility] ([place]) Comment on above: Performed By: #### T OXSC, UA, UAMICAO ####[address] [place], [place] [address] Eosinophils 0.10 10 3/mcL Normal 0.00-0.65 [facility] ([place] Comment on above: Performed By: #### T OXSC, UA, UAMICAO ####Yosi [address] [place], [place] [address] Eosinophils/100 leukocytes 1.6 % Normal 0.0-6.0 [facility] ([place] Comment on above: Performed By: #### T OXSC, UA, UAMICAO ####Yosi [address] [place], [place] [address] Lymphocytes 0.60 10 3/mcL Low 0.90-4.32 [facility] ([place] Comment on above: Performed By: #### T OXSC, UA, UAMICAO ####Yosi [address] [place], [place] [address] Lymphocytes/100 leukocytes 7.6 % Low 20.0-40.0 [facility] ([place] Comment on above: Performed By: #### T OXSC, UA, UAMICAO ####[address] [place], [place] [address] Monocytes 0.70 10 3/mcL Normal 0.09-1.40 [facility] ([place]) Comment on above: Performed By: #### T OXSC, UA, UAMICAO ####[address] [place], [place] [address] Monocytes/100 leukocytes 9.0 % Normal 2.0-13.0 [facility] ([place] Comment on above: Performed By: #### T OXSC, UA, UAMICAO ####[address] [place], [place] [address] Neutrophils/100 WBC Auto (Bld) 81.6 % High 50.0-75.0 [facility] ([place] Comment on above: Performed By: #### Zack OXSC, UA, UAMICAO ####[address] [place], [place] [address] .GFRon 02-24-2017 eGFR (non-black) mL/min/{1.73_m2} Normal [facility] ([place]) Comment on above: Result Comment: GFR Population [...] 15 mL/min/1.73 square meters Performed By: #### Zack OXSC, UA, UAMICAO ###Jasbir [address] [place], [place] [address] .NEUABSon 02-24-2017 Neutrophils 6.20 10 3/mcL Normal 2.25-8.10 [facility] ([place]) Comment on above: Performed By: #### Zack OXSC, UA, UAMICAO ####[address] [place], [place] [address] CBCon 02-24-2017 Erythrocyte distribution width Auto Ratio (RBC) 14.2 % Normal 11.5-15.5 [facility] ([place] Comment on above: Performed By: #### Zack OXSC, UA, UAMICAO ####[address] [place], [place] [address] Erythrocytes (RBC) 2.53 10 6/mcL Low 4.10-5.30 [facility] ([place]) Comment on above: Performed By: #### Zack OXSC, UA, UAMICAO ####[address] [place], [place] [address] Hematocrit (HCT) 27.8 % Low 34.0-46.0 [facility] ([place]) Comment on above: Performed By: #### T OXSC, UA, UAMICAO ####[address] [place], [place] [address] Hemoglobin mass conc (Bld) 9.5 G/dL Low 12.0-16.0 [facility] ([place] Comment on above: Performed By: #### T OXSC, UA, UAMICAO ####[address] [place], [place] [address] MCH 37.4 pg High 27.0-33.0 [facility] ([place] Comment on above: Performed By: #### T OXSC, UA, UAMICAO ####[address] [place], [place] [address] MCHC mass conc (RBC) 34.1 G/dL Normal 32.0-36.0 [facility] ([place]) Comment on above: Performed By: #### T OXSC, UA, UAMICAO ####[address] [place], [place] [address] MCV 109.8 fL High 80.0-99.0 [facility] ([place] Comment on above: Performed By: #### T OXSC, UA, UAMICAO ####[address] [place], [place] [address] Platelet mean volume (PMV) 10.1 fL Normal 6.6-10.5 [facility] ([place] Comment on above: Performed By: #### T OXSC, UA, UAMICAO ####[address] [place], [place] [address] Platelets 65 10 3/mcL Low 150-450 [facility] ([place] Comment on above: Performed By: #### T OXSC, UA, UAMICAO ####[address] [place], [place] [address] WBC (Leukocytes) 7.60 10 3/mcL Normal 4.50-10.80 [facility] ([place]) Comment on above: Performed By: #### T OXSC, UA, UAMICAO ####[address] [place], [place] [address] CMPon 02-24-2017 Albumin/Globulin Ratio 0.8 {ratio} Low 0.9-1.6 [facility] ([place] Comment on above: Performed By: #### T OXSC, UA, UAMICAO ####Yosi [address] [place], [place] [address] Alk Phos 127 U/L High 38-126 [facility] ([place] Comment on above: Performed By: #### T OXSC, UA, UAMICAO ####Yosi [address] [place], [place] [address] Bili Total 3.0 mg/dL High 0.2-1.2 [facility] ([place]) Comment on above: Performed By: #### T OXSC, UA, UAMICAO ####Yosi [address] [place], [place] [address] Globulin 2.5 G/dL Normal 1.5-3.8 [facility] ([place]) Comment on above: Performed By: #### T OXSC, UA, UAMICAO ####[address] [place], [place] [address] Potassium molar conc 2.2 mmol/L Critically abnormal 3.5-5.0 [facility] ([place] Comment on above: Performed By: #### T OXSC, UA, UAMICAO ####[address] [place], [place] [address] Protein 4.6 G/dL Low 6.0-8.5 [facility] ([place] Comment on above: Performed By: #### T OXSC, UA, UAMICAO ####[address] [place], [place] [address] Alanine aminotransferase (ALT) 118 U/L High 10-49 [facility] ([place] Comment on above: Performed By: #### T OXSC, UA, UAMICAO ####[address] [place], [place] [address] Albumin 2.1 G/dL Low 3.2-4.8 [facility] ([place]) Comment on above: Performed By: #### T OXSC, UA, UAMICAO ####Yosi [address] [place], [place] [address] Aspartate aminotransferase (AST) 371 U/L High 8-34 [facility] ([place]) Comment on above: Performed By: #### T OXSC, UA, UAMICAO ####Yosi [address] [place], [place] [address] BUN/Creatinine Ratio 12.9 ratio Normal 10.0-22.0 [facility] ([place]) Comment on above: Performed By: #### T OXSC, UA, UAMICAO ####Yosi [address] [place], [place] [address] Calcium 7.2 mg/dL Low 8.4-10.1 [facility] ([place]) Comment on above: Performed By: #### T OXSC, UA, UAMICAO ####Yosi [address] [place] [id number] Chloride 98 mmol/L Normal 98-110 [facility] ([place] Comment on above: Performed By: #### T OXSC, UA, UAMICAO ####Yosi [address] [place], [place] [address] CO2 29 mmol/L Normal 22-32 [facility] ([place] Comment on above: Performed By: #### T OXSC, UA, UAMICAO ####Yosi [address] [place], [place] [address] Creatinine 0.70 mg/dL Normal 0.50-1.20 [facility] ([place] Comment on above: Performed By: #### T OXSC, UA, UAMICAO ####Yosi [address] [place], [place] [address] Electrolyte Balance 11.0 mEq/L Normal 4.0-15.0 [facility] ([place]) Comment on above: Performed By: #### T OXSC, UA, UAMICAO ####Yosi [address] [place], [place] [address] Glucose mass conc 112 mg/dL High 70-110 [facility] ([place] Comment on above: Performed By: #### T OXSC, UA, UAMICAO ####Yosi [address] [place], [place] [address] Sodium 138 mmol/L Normal 136-145 [facility] ([place] Comment on above: Performed By: #### T OXSC, UA, UAMICAO ####Yosi [address] [place], [place] [address] Urea nitrogen 9.0 mg/dL Normal 8.0-22.0 [facility] ([place]) Comment on above: Performed By: #### T OXSC, UA, UAMICAO ####Yosi [address] [place], [place] [address] Rakesh 02-24-2017 Potassium molar conc 3.3 mmol/L Low 3.5-5.0 [facility] ([place]) Comment on above: Performed By: #### G FR, CMP, CBC, DIFF, MORPH, ALC, AMM ####Yosi [address] [place], [place] [address] MGon 02-24-2017 Magnesium 1.6 mg/dL Normal 1.6-2.4 [facility] ([place]) Comment on above: Performed By: #### G FR, CMP, CBC, DIFF, MORPH, ALC, AMM ####[address] [place], [place] [address] .Auto Diffon 02-23-2017 Basophils Auto #/vol (Bld) 0.00 10 3/mcL Normal 0.00-0.27 [facility] ([place]) Comment on above: Performed By: #### T OXSC, UA, UAMICAO ####[address] [place], [place] [address] Basophils/100 WBC Auto (Bld) 0.2 % Normal 0.0-2.5 [facility] ([place]) Comment on above: Performed By: #### T OXSC, UA, UAMICAO ####[address] [place], [place] [address] Eosinophils 0.00 10 3/mcL Normal 0.00-0.65 [facility] ([place]) Comment on above: Performed By: #### T OXSC, UA, UAMICAO ####[address] [place], [place] [address] Eosinophils/100 leukocytes 0.5 % Normal 0.0-6.0 [facility] ([place]) Comment on above: Performed By: #### T OXSC, UA, UAMICAO ####[address] [place], [place] [address] Lymphocytes 0.60 10 3/mcL Low 0.90-4.32 [facility] ([place]) Comment on above: Performed By: #### T OXSC, UA, UAMICAO ####Yosi [address] [place], [place] [address] Lymphocytes/100 leukocytes 7.6 % Low 20.0-40.0 [facility] ([place]) Comment on above: Performed By: #### T OXSC, UA, UAMICAO ####Yosi [address] [place], [place] [address] Monocytes 0.70 10 3/mcL Normal 0.09-1.40 [facility] ([place]) Comment on above: Performed By: #### T OXSC, UA, UAMICAO ####[address] [place], [place] [address] Monocytes/100 leukocytes 8.7 % Normal 2.0-13.0 [facility] ([place]) Comment on above: Performed By: #### T OXSC, UA, UAMICAO ####[address] [place], [place] [address] Neutrophils/100 WBC Auto (Bld) 83.0 % High 50.0-75.0 [facility] ([place]) Comment on above: Performed By: #### T OXSC, UA, UAMICAO ####[address] [place], [place] [address] .GFRon 02-23-2017 eGFR (non-black) 55 ml/min/1.73sqm Normal A [facility] ([place]) Comment on above: Result Comment: GFR Population [...] #### T OXSC, UA, UAMICAO ####Yosi [address] [place], [place] [address] eGFR (non-black) mL/min/{1.73_m2} Normal [facility] ([place]) Comment on above: Result Comment: GFR Population [...] #### T OXSC, UA, UAMICAO ####[address] [place], [place] [address] .Morphon 02-23-2017 Anisocytosis presence Slight Normal [facility] ([place]) Comment on above: Performed By: #### T OXSC, UA, UAMICAO ####[address] [place], [place] [address] Hypochrom Slight Normal [facility] ([place] Comment on above: Performed By: #### T OXSC, UA, UAMICAO ####Yosi [address] [place], [place] [address] Macrocytosis Slight Normal [facility] ([place] Comment on above: Performed By: #### T OXSC, UA, UAMICAO ####[address] [place], [place] [address] Platelets Grt Decreased Normal [facility] ([place] Comment on above: Performed By: #### T OXSC, UA, UAMICAO ####[address] [place] [address] Poik Slight Normal [facility] ([place] Comment on above: Performed By: #### T OXSC, UA, UAMICAO ####Yosi [address] [place] [address] Stomatocytes Few Normal [facility] ([place] Comment on above: Performed By: #### T OXSC, UA, UAMICAO ####Yosi [address] [place] [address] Target Cell Few [facility] ([place]) Comment on above: Performed By: #### T OXSC, UA, UAMICAO ####Yosi [address] [place], [place] [address] .NEUABSon 02-23-2017 Neutrophils 6.20 10 3/mcL Normal 2.25-8.10 [facility] ([place]) Comment on above: Performed By: #### T OXSC, UA, UAMICAO ####[address] [place], [place] [address] Glo 02-23-2017 Ammonia see comment [facility] ([place]) Comment on above: Result Comment: See separate report Performed By: #### G FR, CMP, CBC, DIFF, MORPH, ALC, AMM ####[address] [place], [place] [address] B12on 02-23-2017 Cobalamins (Vitamin B12) 1637 pg/mL High 211-911 [facility] ([place]) Comment on above: Performed By: #### T OXSC, UA, UAMICAO ####[address] [place], [place] [address] BMPon 02-23-2017 Potassium molar conc 2.0 mmol/L Critically abnormal 3.5-5.0 [facility] ([place]) Comment on above: Performed By: #### T OXSC, UA, UAMICAO ####Yosi [address] [place], [place] [address] BUN/Creatinine Ratio 26.2 ratio High 10.0-22.0 [facility] ([place]) Comment on above: Performed By: #### T OXSC, UA, UAMICAO ####Yosi [address] [place], [place] [address] Calcium 7.7 mg/dL Low 8.4-10.1 [facility] ([place]) Comment on above: Performed By: #### T OXSC, UA, UAMICAO ####Yosi [address] [place], [place] [address] Chloride 91 mmol/L Low 98-110 [facility] ([place] Comment on above: Performed By: #### T OXSC, UA, UAMICAO ####[address] [place], [place] [address] CO2 29 mmol/L Normal 22-32 [facility] ([place]) Comment on above: Performed By: #### T OXSC, UA, UAMICAO ####[address] [place], [place] [address] Creatinine 1.07 mg/dL Normal 0.50-1.20 [facility] ([place]) Comment on above: Performed By: #### T OXSC, UA, UAMICAO ####[address] [place], [place] [address] Electrolyte Balance 14.0 mEq/L Normal 4.0-15.0 [facility] ([place]) Comment on above: Performed By: #### T OXSC, UA, UAMICAO ####[address] [place], [place] [address] Glucose mass conc 74 mg/dL Normal 70-110 [facility] ([place]) Comment on above: Performed By: #### T OXSC, UA, UAMICAO ####[address] [place], [place] [address] Sodium 134 mmol/L Low 136-145 [facility] ([place]) Comment on above: Performed By: #### T OXSC, UA, UAMICAO ####[address] [place], [place] [address] Urea nitrogen 28.0 mg/dL High 8.0-22.0 [facility] ([place]) Comment on above: Performed By: #### T OXSC, UA, UAMICAO ####[address] [place], [place] [address] CBCon 02-23-2017 Erythrocyte distribution width Auto Ratio (RBC) 14.4 % Normal 11.5-15.5 [facility] ([place]) Comment on above: Performed By: #### T OXSC, UA, UAMICAO ####[address] [place], [place] [address] Erythrocytes (RBC) 2.84 10 6/mcL Low 4.10-5.30 [facility] ([place]) Comment on above: Performed By: #### T OXSC, UA, UAMICAO ####[address] [place], [place] [address] Hematocrit (HCT) 30.8 % Low 34.0-46.0 [facility] ([place]) Comment on above: Performed By: #### T OXSC, UA, UAMICAO ####[address] [place], [place] [address] Hemoglobin mass conc (Bld) 10.8 G/dL Low 12.0-16.0 [facility] ([place]) Comment on above: Performed By: #### T OXSC, UA, UAMICAO ####[address] [place], [place] [address] MCH 38.1 pg High 27.0-33.0 [facility] ([place]) Comment on above: Performed By: #### T OXSC, UA, UAMICAO ####[address] [place], [place] [address] MCHC mass conc (RBC) 35.2 G/dL Normal 32.0-36.0 [facility] ([place]) Comment on above: Performed By: #### T OXSC, UA, UAMICAO ####[address] [place], [place] [address] MCV 108.1 fL High 80.0-99.0 [facility] ([place]) Comment on above: Performed By: #### T OXSC, UA, UAMICAO ####[address] [place], [place] [address] Platelet mean volume (PMV) 10.9 fL High 6.6-10.5 [facility] ([place]) Comment on above: Performed By: #### T OXSC, UA, UAMICAO ####[address] [place], [place] [address] Platelets 45 10 3/mcL Low 150-450 [facility] ([place]) Comment on above: Performed By: #### T OXSC, UA, UAMICAO ####[address] [place], [place] [address] WBC (Leukocytes) 7.50 10 3/mcL Normal 4.50-10.80 [facility] ([place]) Comment on above: Performed By: #### T OXSC, UA, UAMICAO ####[address] [place], [place] [address] CT ABDOMEN W/ CONTRASTon CT ABDOMEN W/ CONTRAST ORIGINALCT ABDOME N W/ CONTRAST CLINICAL STATEMENT: cirrhosis , fever. [...] Findings of right-sided colitis are suspected, likely infectious/inflammatory in etiology, not fully visualized on this study which is CT of the abdomen only. Hepatic steatosis, nonspecific finding which can be due to multiple etiologies. Interpreted By: Enrique Veloz MDPreliminary Report By: Enrique Veloz MDElectronically Signed By: Enrique Veloz MD Dictated Date: 02/23/2017 8:10:06 PM Prelim Date: 02/23/2017 8:10:06 PM Sign Date: 02/23/2017 8:14:41 PM Normal [facility] ([place]) FOLon 02-23-2017 Folate 13.6 ng/mL Normal 1.1-20.0 [facility] ([place]) Comment on above: Performed By: #### T OXSC, UA, UAMICAO ####[address] [place], [place] [address] History and Physicalon 02-23 History and Physical Normal [facility] ([place]) Rakesh 02-23-2017 Potassium molar conc 3.0 mmol/L Low 3.5-5.0 [facility] ([place]) Comment on above: Performed By: #### T OXSC, UA, UAMICAO ####[address] [place], [place] [address] MGon 02-23-2017 Magnesium 2.2 mg/dL Normal 1.6-2.4 [facility] ([place]) Comment on above: Result Comment: Spec imen slightly hemolyzed. Results may be falsely elevated. Performed By: #### T OXSC, UA, UAMICAO ####[address] [place], [place] [address] [facility] Note on 02-23-2017 [facility] Note Normal [facility] ([place]) .GFRon 02-22-2017 eGFR (non-black) 26 ml/min/1.73sqm Normal [facility] ([place]) Comment on above: Result Comment: GFR Population [...] CBC, DIFF, MORPH, ALC, AMM ####[address] [place], [place] [address] eGFR (non-black) 32 ml/min/1.73sqm Normal [facility] ([place]) Comment on above: Result Comment: GFR Population [...] CBC, DIFF, MORPH, ALC, AMM ####[address] [place], [place] [address] .Manual Diffon 02-22-2017 Bands 26.0 % High 0.0-5.0 [facility] ([place]) Comment on above: Performed By: #### G FR, CMP, CBC, DIFF, MORPH, ALC, AMM ####[address] [place], [place] [address] Basophil %, Manual 0.0 % Normal 0.0-2.5 [facility] ([place]) Comment on above: Performed By: #### G FR, CMP, CBC, DIFF, MORPH, ALC, AMM ####[address] [place], [place] [address] Basophil, Abs Manual 0.00 10 3/mcL Normal 0.00-0.19 [facility] ([place]) Comment on above: Performed By: #### G FR, CMP, CBC, DIFF, MORPH, ALC, AMM ####[address] [place], [place] [address] Eosinophil, Abs Manual 0.00 10 3/mcL Normal 0.00-0.40 [facility] ([place]) Comment on above: Performed By: #### G FR, CMP, CBC, DIFF, MORPH, ALC, AMM ####[address] [place], [place] [address] Lymphocyte %, Manual 5.0 % Low 10.0-50.0 [facility] ([place]) Comment on above: Performed By: #### G FR, CMP, CBC, DIFF, MORPH, ALC, AMM ####[address] [place], [place] [address] Lymphocyte, Abs Manual 0.60 10 3/mcL Low 0.77-3.85 [facility] ([place]) Comment on above: Performed By: #### G FR, CMP, CBC, DIFF, MORPH, ALC, AMM ####[address] [place], [place] [address] Metamyelocytes/100 leukocytes 3.0 % Normal [facility] ([place]) Comment on above: Performed By: #### G FR, CMP, CBC, DIFF, MORPH, ALC, AMM ####[address] [place], [place] [address] Monocyte %, Manual 8.0 % Normal 1.7-13.0 [facility] ([place]) Comment on above: Result Comment: 0.0 Performed By: #### G FR, CMP, CBC, DIFF, MORPH, ALC, AMM ####[address] [place], [place] [address] Monocyte, Abs Manual 1.00 10 3/mcL Normal 0.15-1.00 [facility] ([place]) Comment on above: Performed By: #### G FR, CMP, CBC, DIFF, MORPH, ALC, AMM ####[address] [place], [place] [address] Neutrophil %, Manual 58.0 % Normal 37.0-80.0 [facility] ([place]) Comment on above: Performed By: #### G FR, CMP, CBC, DIFF, MORPH, ALC, AMM ####[address] [place], [place] [address] Neutrophil, Abs Manual 7.80 10 3/mcL High 2.85-6.16 [facility] ([place]) Comment on above: Performed By: #### G FR, CMP, CBC, DIFF, MORPH, ALC, AMM ####[address] [place], [place] [address] .Morphon 02-22-2017 Macrocytosis Moderate Normal [facility] ([place]) Comment on above: Performed By: #### G FR, CMP, CBC, DIFF, MORPH, ALC, AMM ####[address] [place], [place] [address] Platelets Grt Decreased Normal [facility] ([place]) Comment on above: Performed By: #### G FR, CMP, CBC, DIFF, MORPH, ALC, AMM ####[address] [place], [place] [address] Stomatocytes Several Normal [facility] ([place]) Comment on above: Performed By: #### G FR, CMP, CBC, DIFF, MORPH, ALC, AMM ####[address] [place], [place] [address] Toxic Gran Slight Normal [facility] ([place]) Comment on above: Performed By: #### G FR, CMP, CBC, DIFF, MORPH, ALC, AMM ####[address] [place], [place] [address] .Urinalysis Microscopic (AO) on 02-22-2017 UA Bacteria 4+ /hpf Abnormal [facility] ([place]) Comment on above: Performed By: #### T OXSC, UA, UAMICAO ####[address] [place], [place] [address] UA Squam Epithelial 5-10 Abnormal None Seen [facility] ([place]) Comment on above: Performed By: #### T OXSC, UA, UAMICAO ####[address] [place], [place] [address] UA WBC LOADED Abnormal None Seen [facility] ([place]) Comment on above: Performed By: #### T OXSC, UA, UAMICAO ####[address] [place], [place] [address] Urine, erythrocytes 5-10 Abnormal None Seen [facility] ([place]) Comment on above: Performed By: #### T OXSC, UA, UAMICAO ####[address] [place], [place] [address] Yousif 02-22-2017 Ethanol Level <10 Normal [facility] ([place]) Comment on above: Performed By: #### G FR, CMP, CBC, DIFF, MORPH, ALC, AMM ####[address] [place] [address] CBCon 02-22-2017 Erythrocyte distribution width Auto Ratio (RBC) 14.3 % Normal 11.5-14.5 [facility] ([place]) Comment on above: Performed By: #### G FR, CMP, CBC, DIFF, MORPH, ALC, AMM ####[address] [place] [address] Erythrocytes (RBC) 2.85 10 6/mcL Low 4.20-5.40 [facility] ([place]) Comment on above: Performed By: #### G FR, CMP, CBC, DIFF, MORPH, ALC, AMM ####[address] [place] [address] Hematocrit (HCT) 30.4 % Low 37.0-47.0 [facility] ([place]) Comment on above: Performed By: #### G FR, CMP, CBC, DIFF, MORPH, ALC, AMM ####[address] [place] [address] Hemoglobin mass conc (Bld) 10.7 G/dL Low 12.0-16.0 [facility] ([place]) Comment on above: Performed By: #### G FR, CMP, CBC, DIFF, MORPH, ALC, AMM ####[address] [place], [place] [address] MCH 37.5 pg High 27.0-31.2 [facility] ([place]) Comment on above: Performed By: #### G FR, CMP, CBC, DIFF, MORPH, ALC, AMM ####[address] [place], [place] [address] MCHC mass conc (RBC) 35.1 G/dL Normal 33.0-37.0 [facility] ([place]) Comment on above: Performed By: #### G FR, CMP, CBC, DIFF, MORPH, ALC, AMM ####[address] [place], [place] [address] MCV 106.7 fL High 80.0-94.0 [facility] ([place]) Comment on above: Performed By: #### G FR, CMP, CBC, DIFF, MORPH, ALC, AMM ####[address] [place], [place] [address] Platelet mean volume (PMV) 11.3 fL High 7.4-10.4 [facility] ([place]) Comment on above: Performed By: #### G FR, CMP, CBC, DIFF, MORPH, ALC, AMM ####[address] [place], [place] [address] Platelets 44 10 3/mcL Low 130-400 [facility] ([place]) Comment on above: Performed By: #### G FR, CMP, CBC, DIFF, MORPH, ALC, AMM ####[address] [place], [place] [address] WBC (Leukocytes) 9.30 10 3/mcL Normal 4.60-10.80 [facility] ([place]) Comment on above: Performed By: #### G FR, CMP, CBC, DIFF, MORPH, ALC, AMM ####[address] [place], [place] [address] CMPon 02-22-2017 Aspartate aminotransferase (AST) 183 U/L High 10-40 [facility] ([place]) Comment on above: Performed By: #### G FR, CMP, CBC, DIFF, MORPH, ALC, AMM ####[address] [place], [place] [address] Alanine aminotransferase (ALT) 46 U/L High 10-35 [facility] ([place]) Comment on above: Performed By: #### G FR, CMP, CBC, DIFF, MORPH, ALC, AMM ####[address] [place], [place] [address] Albumin 3.4 G/dL Low 3.5-5.0 [facility] ([place]) Comment on above: Performed By: #### G FR, CMP, CBC, DIFF, MORPH, ALC, AMM ####[address] [place], [place] [address] Albumin/Globulin Ratio 1.4 {ratio} Normal 1.1-2.5 [facility] ([place]) Comment on above: Performed By: #### G FR, CMP, CBC, DIFF, MORPH, ALC, AMM ####[address] [place], [place] [address] Alk Phos 104 IU/L Normal 40-135 [facility] ([place]) Comment on above: Performed By: #### G FR, CMP, CBC, DIFF, MORPH, ALC, AMM ####[address] [place], [place] [address] Bili Total 6.3 mg/dL High 0.2-1.0 [facility] ([place]) Comment on above: Performed By: #### G FR, CMP, CBC, DIFF, MORPH, ALC, AMM ####[address] [place], [place] [address] BUN/Creatinine Ratio 16 ratio Normal 7-27 [facility] ([place]) Comment on above: Performed By: #### G FR, CMP, CBC, DIFF, MORPH, ALC, AMM ####[address] [place], [place] [address] Calcium 8.2 mg/dL Low 8.4-10.2 [facility] ([place]) Comment on above: Performed By: #### G FR, CMP, CBC, DIFF, MORPH, ALC, AMM ####[address] [place], [place] [address] Chloride 82 mmol/L Low 98-107 [facility] ([place]) Comment on above: Performed By: #### G FR, CMP, CBC, DIFF, MORPH, ALC, AMM ####[address] [place], [place] [address] CO2 29 mmol/L Normal 22-29 [facility] ([place]) Comment on above: Performed By: #### G FR, CMP, CBC, DIFF, MORPH, ALC, AMM ####[address] [place], [place] [address] Creatinine 2.0 mg/dL High 0.6-1.2 [facility] ([place]) Comment on above: Performed By: #### G FR, CMP, CBC, DIFF, MORPH, ALC, AMM ####[address] [place], [place] [address] Electrolyte Balance 12.0 mEq/L Normal [facility] ([place]) Comment on above: Performed By: #### G FR, CMP, CBC, DIFF, MORPH, ALC, AMM ####[address] [place], [place] [address] Globulin 2.5 G/dL Normal [facility] ([place]) Comment on above: Performed By: #### G FR, CMP, CBC, DIFF, MORPH, ALC, AMM ####[address] [place], [place] [address] Glucose mass conc 123 mg/dL High 70-105 [facility] ([place]) Comment on above: Performed By: #### G FR, CMP, CBC, DIFF, MORPH, ALC, AMM ####[address] [place], [place] [address] Potassium molar conc 2.1 mmol/L Critically abnormal 3.5-5.1 [facility] ([place]) Comment on above: Performed By: #### G FR, CMP, CBC, DIFF, MORPH, ALC, AMM ####[address] [place], [place] [address] Protein 5.9 G/dL Low 6.0-8.3 [facility] ([place]) Comment on above: Performed By: #### G FR, CMP, CBC, DIFF, MORPH, ALC, AMM ####[address] [place], [place] [address] Sodium 123 mmol/L Low 136-146 [facility] ([place]) Comment on above: Performed By: #### G FR, CMP, CBC, DIFF, MORPH, ALC, AMM ####[address] [place], [place] [address] Urea nitrogen 31.6 mg/dL High 7.0-18.0 [facility] ([place]) Comment on above: Performed By: #### G FR, CMP, CBC, DIFF, MORPH, ALC, AMM ####[address] [place], [place] [address] CT HEAD OR BRAIN W/O CONTRAS Ton [...] resident's findings and interpretation. Interpreted By: Charles Randallreliminary Report By: Jonathan Reynoso DOElectronically Signed By: Charles Randall MD Dictated Date: 02/22/2017 3:45:57 PM Prelim Date: 02/22/2017 3:49:27 PM Sign Date: 02/22/2017 4:06:17 PM Normal [facility] ([place]) TOXSCon 02-22-2017 QC TOXSC Valid Normal [facility] ([place]) Comment on above: Performed By: #### T OXSC, UA, UAMICAO ####[address] [place], [place] [address] U Ampheta (AO) Negative [facility] ([place]) Comment on above: Performed By: #### T OXSC, UA, UAMICAO ####[address] [place], [place] [address] U Roxanne (AO) Negative [facility] ([place]) Comment on above: Performed By: #### T OXSC, UA, UAMICAO ####[address] [place], [place] [address] U Rafael (AO) Negative [facility] ([place]) Comment on above: Performed By: #### T OXSC, UA, UAMICAO ####[address] [place], [place] [address] U Cannab (AO) Negative [facility] ([place]) Comment on above: Performed By: #### T OXSC, UA, UAMICAO ####[address] [place], [place] [address] U Cocaine (AO) Negative [facility] ([place]) Comment on above: Performed By: #### T OXSC, UA, UAMICAO ####[address] [place], [place] [address] U Methadone (AO) Negative [facility] ([place]) Comment on above: Performed By: #### T OXSC, UA, UAMICAO ####[address] [place], [place] [address] U PCP (AO) Negative [facility] ([place]) Comment on above: Performed By: #### T OXSC, UA, UAMICAO ####[address] [place], [place] [address] U TCA (AO) Negative [facility] ([place]) Comment on above: Performed By: #### T OXSC, UA, UAMICAO ####[address] [place], [place] [address] Urine Opiates (AO) Negative [facility] ([place]) Comment on above: Performed By: #### T OXSC, UA, UAMICAO ####[address] [place], [place] [address] UAon 02-22-2017 UA Appear CLOUDY [facility] ([place]) Comment on above: Performed By: #### T OXSC, UA, UAMICAO ####[address] [place], [place] [address] UA Blood LARGE Normal [facility] ([place]) Comment on above: Performed By: #### T OXSC, UA, UAMICAO ####[address] [place], [place] [address] UA Leuk Est MODERATE Normal [facility] ([place]) Comment on above: Performed By: #### T OXSC, UA, UAMICAO ####[address] [place], [place] [address] UA Nitrite Positive [facility] ([place]) Comment on above: Performed By: #### T OXSC, UA, UAMICAO ####[address] [place], [place] [address] UA pH 5.0 [facility] ([place]) Comment on above: Performed By: #### T OXSC, UA, UAMICAO ####[address] [place], [place] [address] UA Protein 100 mg/dL Abnormal Negative [facility] ([place]) Comment on above: Performed By: #### T OXSC, UA, UAMICAO ####[address] [place], [place] [address] UA Spec Grav 1.025 [facility] ([place]) Comment on above: Performed By: #### T OXSC, UA, UAMICAO ####[address] [place], [place] [address] UA Specimen Type Void [facility] ([place]) Comment on above: Performed By: #### T OXSC, UA, UAMICAO ####[address] [place], [place] [address] UA Urobilinogen 4.0 E.U./dL Abnormal [facility] ([place]) Comment on above: Performed By: #### T OXSC, UA, UAMICAO ####[address] [place], [place] [address] Urine, color ORANGE Normal [facility] ([place]) Comment on above: Performed By: #### T OXSC, UA, UAMICAO ####[address] [place], [place] [address] Urine, glucose Negative Normal [facility] ([place]) Comment on above: Performed By: #### T OXSC, UA, UAMICAO ####[address] [place], [place] [address] Urine, ketones presence TRACE Normal [facility] ([place]) Comment on above: Performed By: #### T OXSC, UA, UAMICAO ####[address] [place], [place] [address] Urine, urobilinogen MODERATE Normal [facility] ([place]) Comment on above: Performed By: #### T OXSC, UA, UAMICAO ####[address] [place], [place] [address] XR CHEST 1 VIEWon 02-22-2017 XR CHEST 1 VIEW ORIGINALXR CHEST 1 V IEW PORTABLE AP upright TIME: 30 7:00 PM [...] resident's findings and interpretation. Interpreted By: Jaquan Ovalle MDPreliminary Report By: Jonathan Reynoso DOElectronically Signed By: Jaquan Ovalle MD Dictated Date: 02/22/2017 4:08:01 PM Prelim Date: 02/22/2017 4:09:07 PM Sign Date: 02/22/2017 4:25:08 PM Normal [facility] ([place]) Vital Signs Date Time Vital Sign Value Performing Clinician Facility 01-20-2025 02:39-0400 Diastolic blood pressure 91 mm[Hg] Ezra Zendejas DO Work Phone: [facility] 01-20-2025 02:39-0400 Heart rate 75 /min Ezra Zendejas DO Work Phone: [facility] 01-20-2025 02:39-0400 Respiratory rate 18 /min Ezra Zendejas DO Work Phone: 2(023)837-006833 [place] [address] 01-20-2025 02:39-0400 SaO2% (BldA) [Mass fraction] 96 % Ezra Zendejas DO Work Phone: 7(574)622-576233 [place] [address] 01-20-2025 02:39-0400 Systolic blood pressure 142 mm[Hg] Ezra Zendejas DO Work Phone: 3(179)228-528933 [place] [address] 01-19-2025 20:48-0400 Body height 160 cm Ezra Zendejas DO Work Phone: 3(915)319-472733 [place] [address] 01-19-2025 20:48-0400 Body mass index (BMI) [Ratio] 33.66 kg/m2 Ezra Zendejas DO Work Phone: 3(403)[phone] [place] [address] 01-19-2025 20:48-0400 Body temperature 98.29 [degF] Ezra Zendejas DO Work Phone: 2(763)236-133833 [place] [address] 01-19-2025 20:48-0400 Body weight 86.18 kg Ezra Zendejas DO Work Phone: 8(640)822-720133 [place] [address] 01-03-2025 07:34-0400 Body height 160.[address] Callie Nichols MD Work Phone: [facility] 01-03-2025 07:34-0400 Body mass index (BMI) [Ratio] 33.7 kg/m2 Dr. Callie Nichols MD Work Phone: [facility] 01-03-2025 07:34-0400 Body temperature 97.8 [degF] Dr. Callie Nichols MD Work Phone: [facility] 01-03-2025 07:34-0400 Body weight 86.[address] Callie Nichols MD Work Phone: [facility] 01-03-2025 07:34-0400 Diastolic blood pressure 68 mm[Hg] Dr. Callie Nichols MD Work Phone: [facility] 01-03-2025 07:34-0400 Heart rate 95 /min Dr. Callie Nichols MD Work Phone: [facility] 01-03-2025 07:34-0400 Respiratory rate 16 /min Dr. Callie Nichols MD Work Phone: [facility] 01-03-2025 07:34-0400 SaO2% (BldA) [Mass fraction] 93 % Dr. Callie Nichols MD Work Phone: [facility] 01-03-2025 07:34-0400 Systolic blood pressure 104 mm[Hg] Dr. Callie Nichols MD Work Phone: [facility] 12-21-2024 14:26-0400 Diastolic blood pressure 70 mm[Hg] Smarter Remarketer DO Work Phone: [facility] 12-21-2024 14:26-0400 Heart rate 77 /min Smarter Remarketer DO Work Phone: [facility] 12-21-2024 14:26-0400 Respiratory rate 16 /min Smarter Remarketer DO Work Phone: [facility] 12-21-2024 14:26-0400 SaO2% (BldA) [Mass fraction] 98 % Smarter Remarketer DO Work Phone: [facility] 12-21-2024 14:26-0400 Systolic blood pressure 141 mm[Hg] Smarter Remarketer DO Work Phone: [facility] 12-21-2024 12:15-0400 Body height 160 cm Justinmind Work Phone: [facility] 12-21-2024 12:15-0400 Body mass index (BMI) [Ratio] 32.59 kg/m2 Smarter Remarketer DO Work Phone: [facility] 12-21-2024 12:15-0400 Body temperature 98.29 [degF] Neli Farman DO Work Phone: [facility] 12-21-2024 12:15-0400 Body weight 83.46 kg [facility] Farman DO Work Phone: [facility] 12-07-2024 08:12-0400 Body mass index (BMI) [Ratio] 34 kg/m2 Dr. Callie Nichols MD Work Phone: [facility] 12-07-2024 08:12-0400 Body temperature 98.4 [degF] Dr. Callie Nichols MD Work Phone: [facility] 12-07-2024 08:12-0400 Body weight 87.[address] Callie Nichols MD Work Phone: [facility] 12-07-2024 08:12-0400 Diastolic blood pressure 74 mm[Hg] Dr. Callie Nichols MD Work Phone: [facility] 12-07-2024 08:12-0400 Heart rate 87 /min Dr. Callie Nichols MD Work Phone: [facility] 12-07-2024 08:12-0400 Respiratory rate 16 /min Dr. Callie Nichols MD Work Phone: [facility] 12-07-2024 08:12-0400 SaO2% (BldA) [Mass fraction] 99 % Dr. Callie Nichols MD Work Phone: [facility] 12-07-2024 08:12-0400 Systolic blood pressure 114 mm[Hg] Dr. Callie Nichols MD Work Phone: [facility] 10-15-2024 14:57-0400 Body height 160.[address] Callie Nichols MD Work Phone: [facility] 10-15-2024 14:57-0400 Body mass index (BMI) [Ratio] 34.7 kg/m2 Dr. Callie Nichols MD Work Phone: [facility] 10-15-2024 14:57-0400 Body temperature 96.1 [degF] Dr. Callie Nichols MD Work Phone: [facility] 10-15-2024 14:57-0400 Body weight 89.[address] Callie Nichols MD Work Phone: [facility] 10-15-2024 14:57-0400 Diastolic blood pressure 78 mm[Hg] Dr. Callie Nichols MD Work Phone: [facility] 10-15-2024 14:57-0400 Heart rate 110 /min Dr. Callie Nichols MD Work Phone: [facility] 10-15-2024 14:57-0400 Respiratory rate 16 /min Dr. Callie Nichols MD Work Phone: [facility] [facility] 10-15-2024 14:57-0400 SaO2% (BldA) [Mass fraction] 99 % Dr. Callie Nichols MD Work Phone: [facility] 10-15-2024 14:57-0400 Systolic blood pressure 128 mm[Hg] Dr. Callie Nichols MD Work Phone: [facility] 10-07-2024 08:52-0400 Body height 160.[address] Callie Nichols MD Work Phone: [facility] 10-07-2024 08:52-0400 Body temperature 98.2 [degF] Dr. Callie Nichols MD Work Phone: [facility] 10-07-2024 08:52-0400 Diastolic blood pressure 65 mm[Hg] Dr. Callie Nichols MD Work Phone: [facility] 10-07-2024 08:52-0400 Heart rate 98 /min Dr. Callie Nichols MD Work Phone: [facility] 10-07-2024 08:52-0400 Respiratory rate 17 /min Dr. Callie Nichols MD Work Phone: [facility] 10-07-2024 08:52-0400 Systolic blood pressure 102 mm[Hg] Dr. Callie Nichols MD Work Phone: [facility] 10-02-2024 04:29-0400 Body mass index (BMI) [Ratio] 33.3 kg/m2 Dr. Callie Nichols MD Work Phone: [facility] 10-02-2024 04:29-0400 Body temperature 98.4 [degF] Dr. Callie Nichols MD Work Phone: [facility] 10-02-2024 04:29-0400 Body weight 88.[address] Callie Nichols MD Work Phone: [facility] 10-02-2024 04:29-0400 Diastolic blood pressure 64 mm[Hg] Dr. Callie Nichols MD Work Phone: [facility] 10-02-2024 04:29-0400 Heart rate 103 /min Dr. Callie Nichols MD Work Phone: [facility] 10-02-2024 04:29-0400 Respiratory rate 20 /min Dr. Callie Nichols MD Work Phone: [facility] 10-02-2024 04:29-0400 SaO2% (BldA) [Mass fraction] 99 % Dr. Callie Nichols MD Work Phone: [facility] 10-02-2024 04:29-0400 Systolic blood pressure 99 mm[Hg] Dr. Callie Nichols MD Work Phone: [facility] 09-20-2024 12:41-0400 Diastolic blood pressure 71 mm[Hg] Abhinav Gonzalez MD Work Phone: [facility] 09-20-2024 12:41-0400 Heart rate 81 /min Abhinav Gonzalez MD Work Phone: [facility] 09-20-2024 12:41-0400 Respiratory rate 16 /min Abhinav Gonzalez MD Work Phone: [facility] 09-20-2024 12:41-0400 SaO2% (BldA) [Mass fraction] 99 % Abhinav Gonzalez MD Work Phone: [facility] 09-20-2024 12:41-0400 Systolic blood pressure 118 mm[Hg] Abhinav Gonzalez MD Work Phone: [facility] 09-20-2024 11:07-0400 Body height 160 cm Abhinav Gonzalez MD Work Phone: [facility] 09-20-2024 11:07-0400 Body mass index (BMI) [Ratio] 32.95 kg/m2 Abhinav Gonzalez MD Work Phone: [facility] 09-20-2024 11:07-0400 Body temperature 97.81 [degF] Abhinav Gonzalez MD Work Phone: [facility] 09-20-2024 11:07-0400 Body weight 84.37 kg Abhinav Gonzalez MD Work Phone: [facility] 09-07-2024 13:11-0400 Body height 162.[address] Callie Nichols MD Work Phone: [facility] 08-17-2024 09:19-0400 Diastolic blood pressure 66 mm[Hg] John Rolle MD Work Phone: [facility] 08-17-2024 09:19-0400 Heart rate 78 /min John Rolle MD Work Phone: [facility] 08-17-2024 09:19-0400 Systolic blood pressure 114 mm[Hg] John Rolle MD Work Phone: [facility] 08-17-2024 06:01-0400 Body temperature 97.9 [degF] John Rolle MD Work Phone: [facility] 08-17-2024 06:01-0400 Respiratory rate 16 /min John Rolle MD Work Phone: [facility] 08-17-2024 06:01-0400 SaO2% (BldA) [Mass fraction] 96 % John Rolle MD Work Phone: [facility] 08-11-2024 13:33-0500 Body height 160 cm John Rolle MD Work Phone: [facility] 08-11-2024 13:33-0500 Body mass index (BMI) [Ratio] 28.87 kg/m2 John Rolle MD Work Phone: [facility] 08-11-2024 13:33-0500 Body weight 73.94 kg John Rolle MD Work Phone: [facility] 07-30-2024 11:54-0500 Body temperature 98 [degF] Dr. Callie Nichols MD Work Phone: [facility] 07-30-2024 11:54-0500 Diastolic blood pressure 73 mm[Hg] Dr. Callie Nichols MD Work Phone: [facility] 07-30-2024 11:54-0500 Heart rate 95 /min Dr. Callie Nichols MD Work Phone: [facility] 07-30-2024 11:54-0500 Respiratory rate 16 /min Dr. Callie Nichols MD Work Phone: [facility] 07-30-2024 11:54-0500 SaO2% (BldA) [Mass fraction] 95 % Dr. Callie Nichols MD Work Phone: [facility] 07-30-2024 11:54-0500 Systolic blood pressure 104 mm[Hg] Dr. Callie Nichols MD Work Phone: [facility] 07-27-2024 22:32-0500 Body mass index (BMI) [Ratio] 27.6 kg/m2 Dr. Callie Nichols MD Work Phone: [facility] 07-27-2024 22:32-0500 Body weight 72.[address] Callie Nichols MD Work Phone: [facility] 07-12-2024 13:30-0500 Body mass index (BMI) [Ratio] 29.3 kg/m2 Dr. Callie Nichols MD Work Phone: [facility] 07-12-2024 13:30-0500 Body temperature 97.8 [degF] Dr. Callie Nichols MD Work Phone: [facility] 07-12-2024 13:30-0500 Body weight 77.[address] Callie Nichols MD Work Phone: [facility] 07-12-2024 13:30-0500 Diastolic blood pressure 68 mm[Hg] Dr. Callie Nichols MD Work Phone: [facility] 07-12-2024 13:30-0500 Heart rate 105 /min Dr. Callie Nichols MD Work Phone: [facility] 07-12-2024 13:30-0500 Respiratory rate 16 /min Dr. Callie Nichols MD Work Phone: [facility] 07-12-2024 13:30-0500 SaO2% (BldA) [Mass fraction] 99 % Dr. Callie Nichols MD Work Phone: [facility] 07-12-2024 13:30-0500 Systolic blood pressure 112 mm[Hg] Dr. Callie Nichols MD Work Phone: [facility] 07-10-2024 17:00-0500 Body temperature 98.2 [degF] Dr. Callie Nichols MD Work Phone: [facility] 07-10-2024 17:00-0500 Diastolic blood pressure 89 mm[Hg] Dr. Callie Nichols MD Work Phone: [facility] 07-10-2024 17:00-0500 Heart rate 97 /min Dr. Callie Nichols MD Work Phone: [facility] 07-10-2024 17:00-0500 Respiratory rate 16 /min Dr. Callie Nichols MD Work Phone: [facility] 07-10-2024 17:00-0500 SaO2% (BldA) [Mass fraction] 100 % Dr. Callie Nichols MD Work Phone: [facility] 07-10-2024 17:00-0500 Systolic blood pressure 112 mm[Hg] Dr. Callie Nichols MD Work Phone: [facility] 07-10-2024 05:38-0500 Body mass index (BMI) [Ratio] 27.8 kg/m2 Dr. Callie Nichols MD Work Phone: [facility] 07-10-2024 05:38-0500 Body weight 74.[address] Callie Nichols MD Work Phone: [facility] 02-05-2024 09:45-0400 Body height 161.3 cm Lakia Boykin CRIBBER - [employer]KEEPING TE[employer] Work Phone: [facility] 02-05-2024 09:45-0400 Body mass index (BMI) [Ratio] 29.54 kg/m2 Lakia Boykin [employer]BBER - [employer] TE[employer]ER Work Phone: [facility] 02-05-2024 09:45-0400 Body temperature 98.29 [degF] Lakia Boykin [employer]RIBBER - [employer]KEEP[employer] TEACHER Work Phone: [facility] 02-05-2024 09:45-0400 Body weight 76.84 kg Lakia Bridenthal CRIBBER - [employer]KEEPING TEACHER Work Phone: [facility] 02-05-2024 09:45-0400 Diastolic blood pressure 79 mm[Hg] Lakia Bridenthal [employer]RIBBER - [employer]KEEP[employer] TEACHER Work Phone: [facility] 02-05-2024 09:45-0400 Heart rate 84 /min Lakia Bridenthal [employer]RIBBER - [employer]KEEP[employer] TEACHER Work Phone: [facility] 02-05-2024 09:45-0400 Respiratory rate 18 /min Lakia Bridenthal CRIBBER - [employer] TE[employer]ER Work Phone: [facility] 02-05-2024 09:45-0400 SaO2% (BldA) [Mass fraction] 97 % Alkia Bridenthal CRIBBER - [employer]KEEPING TEACHER Work Phone: [facility] 02-05-2024 09:45-0400 Systolic blood pressure 111 mm[Hg] Lakia Bridenthal [employer]RIBBER - [employer]KEEPING TE[employer]ER Work Phone: [facility] 01-07-2024 08:56-0400 Body height 161.3 cm Sree Siegel MD Work Phone: [facility] 01-07-2024 08:56-0400 Body mass index (BMI) [Ratio] 30.9 kg/m2 Sree Siegel MD Work Phone: [facility] 01-07-2024 08:56-0400 Body weight 80.38 kg Sree Siegel MD Work Phone: [facility] 01-07-2024 08:56-0400 Diastolic blood pressure 84 mm[Hg] Sree Siegel MD Work Phone: [facility] 01-07-2024 08:56-0400 Heart rate 88 /min Sree Siegel MD Work Phone: [facility] 01-07-2024 08:56-0400 SaO2% (BldA) [Mass fraction] 97 % Sree Siegel MD Work Phone: [facility] 01-07-2024 08:56-0400 Systolic blood pressure 134 mm[Hg] Sree Siegel MD Work Phone: [facility] 04-09-2023 13:25-0400 Body height 162.[address] Callie Nichols Work Phone: [facility] 04-09-2023 13:25-0400 Body mass index (BMI) [Ratio] 31.4 kg/m2 Dr. Callie Nichols Work Phone: [facility] 04-09-2023 13:25-0400 Body temperature 97.9 [degF] Dr. Callie Nichols Work Phone: [facility] 04-09-2023 13:25-0400 Body weight [address] Callie Nichols Work Phone: [facility] 04-09-2023 13:25-0400 Diastolic blood pressure 80 mm[Hg] Dr. Callie Nichols Work Phone: [facility] 04-09-2023 13:25-0400 Heart rate 106 /min Dr. Callie Nichols Work Phone: [facility] 04-09-2023 13:25-0400 SaO2% (BldA) [Mass fraction] 98 % Dr. Callie Nichols Work Phone: [facility] 04-09-2023 13:25-0400 Systolic blood pressure 146 mm[Hg] Dr. Callie Nichols Work Phone: [facility] 02-06-2023 13:59-0400 Body mass index (BMI) [Ratio] 30.5 kg/m2 Dr. Callie Nichols Work Phone: [facility] 02-06-2023 13:59-0400 Body temperature 98.2 [degF] Dr. Callie Nichols Work Phone: [facility] 02-06-2023 13:59-0400 Body weight 80.[address] Callie Nichols Work Phone: [facility] 02-06-2023 13:59-0400 Diastolic blood pressure 70 mm[Hg] Dr. Callie Nichols Work Phone: [facility] 02-06-2023 13:59-0400 Heart rate 95 /min Dr. Callie Nichols Work Phone: [facility] 02-06-2023 13:59-0400 Respiratory rate 17 /min Dr. Callie Nichols Work Phone: [facility] 02-06-2023 13:59-0400 SaO2% (BldA) [Mass fraction] 97 % Dr. Callie Nichols Work Phone: [facility] 02-06-2023 13:59-0400 Systolic blood pressure 110 mm[Hg] Dr. Callie Nichols Work Phone: [facility] 10-02-2022 12:14-0400 Diastolic blood pressure 80 mm[Hg] Dr. Callie Nichols Work Phone: [facility] 10-02-2022 12:14-0400 Systolic blood pressure 120 mm[Hg] Dr. Callie Nichols Work Phone: [facility] 10-02-2022 11:38-0400 Body height 162.[address] Callie Nichols Work Phone: [facility] 10-02-2022 11:38-0400 Body mass index (BMI) [Ratio] 32.2 kg/m2 Dr. Callie Nichols Work Phone: [facility] 10-02-2022 11:38-0400 Body temperature 98 [degF] Dr. Callie Nichols Work Phone: [facility] 10-02-2022 11:38-0400 Body weight 85.[address] Callie Nichols Work Phone: [facility] 10-02-2022 11:38-0400 Heart rate 100 /min Dr. Callie Nichols Work Phone: [facility] 10-02-2022 11:38-0400 Respiratory rate 17 /min Dr. Callie Nichols Work Phone: [facility] 10-02-2022 11:38-0400 SaO2% (BldA) [Mass fraction] 97 % Dr. Callie Nichols Work Phone: [facility] 06-20-2022 10:15-0500 Body mass index (BMI) [Ratio] 33.7 kg/m2 Dr. Callie Nichols Work Phone: [facility] 06-20-2022 10:15-0500 Body weight 89.[address] Callie Nichols Work Phone: [facility] 03-28-2022 13:04-0400 Body height 162.[address] Callie Nichols Work Phone: [facility] Work Phone: 03-28-2022 13:04-0400 Body mass index (BMI) [Ratio] 33.7 kg/m2 Dr. Callie Ncihols Work Phone: [facility] Work Phone: 03-28-2022 13:04-0400 Body temperature 98 [degF] Dr. Callie Nichols Work Phone: [facility] Work Phone: 03-28-2022 13:04-0400 Body weight 89.[address] Callie Nichols Work Phone: [facility] Work Phone: 03-28-2022 13:04-0400 Diastolic blood pressure 68 mm[Hg] Dr. Callie Nichols Work Phone: [facility] Work Phone: 03-28-2022 13:04-0400 Heart rate 96 /min Dr. Callie Nichols Work Phone: [facility] Work Phone: 03-28-2022 13:04-0400 Respiratory rate 17 /min Dr. Callie Nichols Work Phone: [facility] Work Phone: 03-28-2022 13:04-0400 SaO2% (BldA) [Mass fraction] 97 % Dr. Callie Nichols Work Phone: [facility] Work Phone: 03-28-2022 13:04-0400 Systolic blood pressure 120 mm[Hg] Dr. Callie Nichols Work Phone: [facility] Work Phone: 03-07-2022 14:57-0400 Body height 162.[address] Callie Nichols Work Phone: [facility] Work Phone: 03-07-2022 14:57-0400 Body mass index (BMI) [Ratio] 33.1 kg/m2 Dr. Callie Nichols Work Phone: [facility] Work Phone: 03-07-2022 14:57-0400 Body temperature 97.8 [degF] Dr. Callie Nichols Work Phone: [facility] Work Phone: 03-07-2022 14:57-0400 Body weight 87.[address] Callie Nichols Work Phone: [facility] Work Phone: 03-07-2022 14:57-0400 Diastolic blood pressure 60 mm[Hg] Dr. Callie Nichols Work Phone: [facility] Work Phone: 03-07-2022 14:57-0400 Heart rate 76 /min Dr. Callie Nichols Work Phone: [facility] Work Phone: 03-07-2022 14:57-0400 Respiratory rate 16 /min Dr. Callie Nichols Work Phone: [facility] Work Phone: 03-07-2022 14:57-0400 SaO2% (BldA) [Mass fraction] 96 % Dr. Callie Nichols Work Phone: [facility] Work Phone: 03-07-2022 14:57-0400 Systolic blood pressure 102 mm[Hg] Dr. Callie Nichols Work Phone: [facility] Work Phone: 11-08-2021 13:15-0400 Body height 162.[address] Callie Nichols Work Phone: [facility] Work Phone: 11-08-2021 13:15-0400 Body mass index (BMI) [Ratio] 31.1 kg/m2 Dr. Callie Nichols Work Phone: [facility] Work Phone: 11-08-2021 13:15-0400 Body weight 82.[address] Callie Nichols Work Phone: [facility] Work Phone: 11-08-2021 13:15-0400 Diastolic blood pressure 78 mm[Hg] Dr. Callie Nichols Work Phone: [facility] Work Phone: 11-08-2021 13:15-0400 Heart rate 84 /min Dr. Callie Nichols Work Phone: [facility] Work Phone: 11-08-2021 13:15-0400 Respiratory rate 16 /min Dr. Callie Nichols Work Phone: [facility] Work Phone: 11-08-2021 13:15-0400 SaO2% (BldA) [Mass fraction] 98 % Dr. Callie Nichols Work Phone: [facility] Work Phone: 11-08-2021 13:15-0400 Systolic blood pressure 138 mm[Hg] Dr. Callie Nichols Work Phone: [facility] Work Phone: 11-02-2021 10:38-0400 Body mass index (BMI) [Ratio] 31 kg/m2 Dr. Callie Nichols Work Phone: [facility] Work Phone: 11-02-2021 10:38-0400 Body temperature 98.5 [degF] Dr. Callie Nichols Work Phone: [facility] Work Phone: 11-02-2021 10:38-0400 Body weight 82.[address] Callie Nichols Work Phone: [facility] Work Phone: 11-02-2021 10:38-0400 Diastolic blood pressure 82 mm[Hg] Dr. Callie Nichols Work Phone: [facility] Work Phone: 11-02-2021 10:38-0400 Heart rate 79 /min Dr. Callie Nichols Work Phone: [facility] Work Phone: 11-02-2021 10:38-0400 Respiratory rate 14 /min Dr. Callie Nichols Work Phone: [facility] Work Phone: 11-02-2021 10:38-0400 SaO2% (BldA) [Mass fraction] 99 % Dr. Callie Nichols Work Phone: [facility] Work Phone: 11-02-2021 10:38-0400 Systolic blood pressure 140 mm[Hg] Dr. Callie Nichols Work Phone: [facility] Work Phone: Encounters Encounter Date Encounter Type Care Provider Facility Start: 04-26-2025 [facility]ulatory [facility] Start: 04-04-2025 End: 04-04-2025 ambulatory [facility] Facility:[facility] Start: 03-25-2025 End: 03-25-2025 ambulatory [facility] Facility:[facility] Start: 03-22-2025 End: 03-22-2025 ambulatory [facility] Facility:[facility] Start: 03-10-2025 End: 03-10-2025 ambulatory [facility] Facility:[facility] Start: 02-08-2025 End: 02-08-2025 ambulatory [facility] Start: 01-27-2025 End: 01-27-2025 ambulatory [facility] Start: 01-19-2025 End: 01-20-2025 Emergency department patient visit Ezra Zendejas DO Work Phone: [facility] Comment on above: Lower abdominal pain (Primary Dx); Nausea and vomiting, unspecified vomiting type; Diarrhea, unspecified type; Hypokalemia Start: 01-03-2025 End: 01-03-[address] Callie Nichols MD -[facility] Work Phone: Start: 01-03-2025 End: 01-03-[address] Callie Nichols MD Work Phone: [facility] Start: 01-03-2025 End: 01-03-2025 ambulatory [facility] Facility:[facility] Start: 12-29-2024 End: 12-29-[address] Lorne Henderson MD -[facility] [place] Work Phone: Start: 12-29-2024 End: 12-29-2024 ambulatory [facility] Facility:[facility] Start: 12-21-2024 End: 12-21-2024 Emergency department patient visit Neli Xie DO Work Phone: [facility] Comment on above: Urinary tract infect ion without hematuria, site unspecified (Primary Dx); Diarrhea, unspecified type; Hypokalemia; Calculus of gallbladder without cholecystitis without obstruction Start: 12-21-2024 End: 12-21-2024 ambulatory [facility] Facility:[facility] Start: 12-07-2024 End: 12-07-[address] Lorne Henderson MD -[facility] Work Phone: Start: 12-07-2024 End: 12-07-2024 ambulatory [facility] Facility:[facility] Start: 12-07-2024 End: 12-07-2024 ambulatory [facility] Facility:[facility] Start: 11-24-2024 ambulatory O[facility] D[facility] Facility:[facility] Start: 11-24-2024 Non-patient / Non-visit Dr. Kalli PICKARD -[facility] Start: 11-24-2024 End: 11-24-[address] Lorne Henderson MD -[facility] Work Phone: Start: 11-24-2024 End: 11-24-2024 ambulatory [facility] Facility:[facility] Start: 11-02-2024 End: 11-02-[address] Callie Nichols MD Work Phone: [facility] Work Phone: Start: 11-02-2024 End: 11-02-2024 Patient encounter procedure Hugo WORKMAN -Cardiovascular Services Work Phone: Start: 11-02-2024 End: 11-02-2024 Hugo WORKMAN -[facility] Services Work Phone: Start: 11-02-2024 End: 11-02-2024 ambulatory [facility] Facility:[facility] Start: 10-25-2024 End: 10-25-[address] Callie Nichols MD Work Phone: [facility] Work Phone: Start: 10-25-2024 End: 10-25-2024 Patient encounter procedure Jacinta Hernandez COUNC[employer] MEMBER-C -Sleep Lab Work Phone: Start: 10-25-2024 End: 10-25-2024 Jacinta Hernandez COUNCIL MEMBER-C -Sleep Lab Work Phone: Start: 10-25-2024 End: 10-25-2024 ambulatory Jacintabill Hernandez Facility:[facility] Start: 10-15-2024 End: 10-15-2024 [facility] Start: 10-15-2024 End: 10-15-2024 [facility] Work Phone: Start: 10-15-2024 End: 10-15-2024 ambulatory [facility] Start: 10-07-2024 End: 10-07-[address] Lorne Henderson MD -[facility] [place] Work Phone: Start: 10-07-2024 End: 10-07-2024 Dr. Lorne Henderson MD -Laboratory, [place] Work Phone: Start: 10-07-2024 End: 10-07-[address] Lorne Henderson MD -[facility] Work Phone: Start: 10-07-2024 End: 10-07-2024 Dr. Lorne Henderson MD -[facility] Work Phone: Start: 10-07-2024 End: 10-07-2024 ambulatory [facility] Facility:[facility] Start: 10-07-2024 End: 10-07-2024 ambulatory [facility] Facility:[facility] Start: 10-02-2024 End: 10-02-2024 Dr. Chris Roberts MD -Emergency Departm ent Work Phone: Start: 10-02-2024 End: 10-02-2024 Emergency department patient visit Dr. Chris Roberts MD -Emergency Department Work Phone: Start: 09-20-2024 End: 09-20-2024 Emergency department patient visit Abhinav Gonzalez MD Work Phone: [facility] Comment on above: Shortness of breath (Primary Dx); Leg swelling; Smoker Start: 09-20-2024 End: 09-20-2024 ambulatory [facility] Facility:[facility] Start: 09-17-2024 End: 09-17-2024 Patient encounter procedure Hugo WORKMAN -[facility] Work Phone: Start: 09-17-2024 End: 09-17-2024 Hugo WORKMAN [facility] Work Phone: Start: 09-17-2024 End: 09-17-[address] Callie Nichols MD Work Phone: [facility] Work Phone: Start: 09-17-2024 End: 09-17-2024 ambulatory [facility] Facility:[facility] Start: 08-11-2024 End: 08-17-2024 Evaluation and management of inpatient John Rolle MD Work Phone: [facility] Comment on above: Alcohol withdrawal s yndrome without complication (HCC) (Primary Dx); Nausea; Dehydration; Hypokalemia Start: 08-11-2024 ambulatory [facility] Fac[facility] ty:[facility] Start: 08-04-2024 ambulatory [facility] Oleg[facility] Facili ty:[facility] Start: 07-30-2024 Non-patient / Non-visit Dr. Norbert Valle [facility] Work Phone: Start: 07-30-2024 Dr. Norbert markham [facility] Work Phone: Start: 07-29-2024 Non-patient / Non-visit Dr. Norbert Valle [facility] Work Phone: Start: 07-29-2024 [facility] Work Phone: Start: 07-28-2024 Non-patient / Non-visit Dr. Norbert Valle [facility] Work Phone: Start: 07-28-2024 Dr. Norbert markham [facility] Work Phone: Start: 07-27-2024 ambulatory [facility] Facili ty:[facility] Start: 07-27-2024 End: 07-30-2024 Evaluation and management of inpatient Dr. Norbert Jansen MD -Progressive Care Unit Work Phone: Start: 07-27-2024 End: 07-30-2024 Dr. Norbert Jansen MD -Progressive Care U nit Work Phone: Start: 07-12-2024 End: 07-12-[address] Callie Nichols MD -[facility] Work Phone: Start: 07-12-2024 End: 07-12-2024 Dr. Callie Nichols MD -[facility] Work Phone: Start: 07-12-2024 End: 07-12-2024 ambulatory [facility] Facility:[facility] Start: 07-10-2024 Non-patient / Non-visit Dr. Jana Vinson [facility] Work Phone: Start: 07-10-2024 Dr. Jana Perera [facility] Work Phone: Start: 07-09-2024 Non-patient / Non-visit Dr. Jana Holden [facility] Inpatient [facility]icians Work Phone: Start: 07-09-[address] [facility] Inpatient Physicians Work Phone: Start: 07-08-2024 Non-patient / Non-visit Dr. Jana Holden [facility] Work Phone: Start: 07-08-2024 Dr. Jana Holden [facility] Inpatient [facility]icians Work Phone: Start: 07-07-2024 Non-patient / Non-visit Dr. Jana Holden [facility] Work Phone: Start: 07-07-2024 Dr. Jana Holden [facility] Inpatient [facility]icians Work Phone: Start: 07-06-2024 ambulatory [facility] Facili ty:[facility] Start: 07-06-2024 End: 07-10-2024 Evaluation and management of inpatient Dr. [facility] Work Phone: Start: 07-06-2024 End: 07-10-2024 Dr. [facility] it Work Phone: Start: 06-24-2024 ambulatory E[facility] Olee Facili ty:[facility] Start: 04-30-2024 End: 04-30-2024 [facility] Start: 03-29-2024 End: 03-29-2024 Telephone encounter Lakia Boykin APRN - [place] Work Phone: [facility] [place] Comment on above: Orders (CT-Lung Scre en) Start: 03-02-2024 End: 03-02-2024 Ellis Siegel MD Work Phone: [facility] - [facility] Comment on above: Primary hypertension Start: 02-05-2024 End: 02-05-2024 Assay of hemosiderin, quant Lakia Boykin C[employer]BBER - [employer]ING TEACHER Work Phone: [facility] Start: 02-05-2024 End: 02-05-2024 Patient encounter procedure Lakia Boykin CRIBBER - [employer]KEEPING TEACHER Work Phone: [facility] Comment on above: Colon cancer screeni ng (Primary Dx); Tobacco dependence; Encounter for screening mammogram for malignant neoplasm of breast; Primary hypertension; Anxiety; Annual physical exam; Nicotine dependence, cigarettes, uncomplicated; Routine general medical examination at health care facility; Seizure disorder (CMS/HCC) (HCC) Start: 02-05-2024 End: 02-05-2024 ambulatory LAKIA [facility] Start: 02-05-2024 End: 02-05-2024 Encounter for general adult medical examination without abnormal findings [facility] Start: 01-12-2024 End: 01-12-2024 Refill Sree Siegel MD Work Phone: [facility] Start: 01-08-2024 End: 01-12-2024 Telephone encounter Sree Siegel MD Work Phone: [facility] Comment on above: Results; Release of Information Start: 01-07-2024 End: 01-07-2024 Office outpatient new 45 minutes Sree Siegel MD Work Phone: [facility] Comment on above: Seizure disorder (CM S/HCC) (HCC) (Primary Dx); Primary hypertension; Coronary artery disease 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 angina pectoris; Anxiety; Screening for diabetes mellitus; Screening for deficiency anemia Start: 01-07-2024 End: 01-07-2024 ambulatory SREE ROBBIN [facility] Start: 12-23-2023 End: 12-23-2023 Telephone encounter Sree Siegel MD Work Phone: [facility] Comment on above: New Patient Start: 04-09-[address] Escobar Nichols Work Phone: [facility] Start: 04-09-2023 End: 04-09-[address] Callie Nichols Work Phone: [facility] Work Phone: Start: 04-09-2023 End: 04-09-2023 Encounter for general adult medical examination without abnormal findings Dr. Callie Nichols Work Phone: [facility] Start: 04-09-2023 End: 04-09-[address] Callie Nichols Work Phone: [facility] Work Phone: Start: 02-06-2023 End: 02-06-[address] Callie Nichols Work Phone: [facility] Work Phone: Start: 10-07-2022 End: 10-07-[address] Callie Nichols Work Phone: [facility] Work Phone: Start: 10-07-2022 End: 10-07-[address] Callie Nichols Work Phone: [facility] Start: 10-02-2022 End: 10-02-[address] Callie Nichols Work Phone: [facility] Start: 06-20-2022 End: 06-20-[address] Callie Nichols Work Phone: [facility] Start: 05-16-2022 End: 05-16-[address] Callie Nichols Work Phone: [facility] Work Phone: Start: 05-16-2022 End: 05-16-[address] Callie Nichols Work Phone: [facility] Start: 03-28-2022 End: 03-28-[address] Callie Nichols Work Phone: [facility] Start: 03-18-2022 End: 03-18-[address] Callie Nichols Work Phone: [facility] Work Phone: Start: 03-18-2022 End: 03-18-[address] Callie Nichols Work Phone: [facility] Start: 03-07-2022 End: 03-07-[address] Callie Nichols Work Phone: [facility] Start: 11-08-2021 End: 11-08-[address] Callie Nichols Work Phone: [facility] Start: 11-02-2021 End: 11-02-[address] Callie Nichols Work Phone: [facility] Start: 02-22-2017 End: 02-25-2017 Evaluation and management of inpatient GINA OCHOA Facility:A Start: 02-22-2017 End: 02-22-2017 Emergency department patient visit YARIEL RUSSELLIENZA Facility:[facility] Start: 12-17-2016 Ambulatory PHY WO ID REFERRING Fac ility:[facility] Procedures Date Procedure Procedure Detail Performing Clinician Start: 01-19-2025 Urinalysis complete W Reflex Culture panel - Urine Ezra Zendejas DO Work Phone: Start: 01-19-2025 Urnls dip stick/tabl et reagent auto microscopy Ezra Zendejas DO Work Phone: Start: 01-19-2025 Ct abdomen & pelvis w/contrast material Ezra Zendejas DO Work Phone: Start: 01-19-2025 End: 01-19-2025 Comprehensive metabolic panel Ezra Zendejas DO Work Phone: Start: 01-19-2025 LIGHT BLUE TOP Ezra Zendejas DO Work Phone: Start: 01-19-2025 SST TOP Ezra Zendejas DO Work Phone: Start: 01-03-[address] Dallas Nichols MD Work Phone: Comment on above: Test Ordered: [id number] Zonisamide(Zonegran), SerumZonisamide 23.8 ug/mL Reference Range: 10.0-40.0 Detection Limit = 2.0Performed at: [facility] [id number] Director: Apurva Molina MD, Phone: [phone] at: [facility] [id number] Director: Aj Poe PhD, Phone: [phone] Start: 12-21-2024 Urnls dip stick/tabl et reagent auto microscopy [facility] Work Phone: Start: 12-21-2024 Ct abdomen & pelvis w/contrast material [facility] Work Phone: Start: 12-21-2024 Comprehensive metabo lic panel [facility] Work Phone: Start: 12-07-2024 Folic acid measurement, RBC Dr. Callie Nichols MD Work Phone: Start: 10-02-2024 Blood count smear mc rscp w/mnl difrntl wbc count Dr. Callie Nichols MD Work Phone: Start: 10-02-[address] Callie Nichols MD Work Phone: Start: 10-02-2024 Mean corpuscular hem oglobin concentration determination Dr. Callie Nichols MD Work Phone: Start: 10-02-2024 Nucleated red blood cell count procedure Dr. Callie Nichols MD Work Phone: Start: 10-02-2024 Platelet mean volume determination Dr. Callie Nichols MD Work Phone: Start: 10-02-2024 Urine microscopy: red cells Dr. Callie Nichols MD Work Phone: Start: 10-02-2024 Urnls dip stick/tabl et reagent auto microscopy Dr. Callie Nichols MD Work Phone: Start: 09-20-2024 Radiologic exam ches t 2 views Abhinav Gonzalez MD Work Phone: Start: 09-20-2024 Ecg routine ecg w/le ast 12 lds trcg only w/o i&r Abhinav Gonzalez MD Work Phone: Start: 09-20-2024 Comprehensive metabo lic panel Abhinav Gonzalez MD Work Phone: Start: 09-17-2024 Blood count smear mc rscp w/mnl difrntl wbc count Dr. Callie Nichols MD Work Phone: Start: 09-17-2024 Mean corpuscular hem oglobin concentration determination Dr. Callie Nichols MD Work Phone: Start: 09-17-2024 Nucleated red blood cell count procedure Dr. Callie Nichols MD Work Phone: Start: 09-17-2024 Platelet mean volume determination Dr. Callie Nichols MD Work Phone: Start: 08-15-2024 Basic metabolic pane l calcium total Chris Holland [employer] Work Phone: Start: 08-14-2024 Comprehensive metabo lic panel Elsa Bacon DO Work Phone: Start: 08-13-2024 Comprehensive metabo lic panel Elsa Bacon DO Work Phone: Start: 08-11-2024 Ecg routine ecg w/le ast 12 lds trcg only w/o i&r John Rolle MD Work Phone: Start: 08-11-2024 Comprehensive metabo lic panel John Rolle MD Work Phone: Start: 08-11-2024 Drug test def 1-7 classes John Rolle MD Work Phone: Start: 08-11-2024 ETHYL GLUCURONIDE SC REEN, URINE Elsa Bacon DO Work Phone: Start: 08-11-2024 Manual differential performed [Presence] in Blood John Rolle MD Work Phone: Start: 08-11-2024 SARS-CoV-2 (COVID-19 ) Ag [Presence] in Respiratory specimen by Rapid immunoassay John Rolle MD Work Phone: Start: 08-11-2024 Urinalysis complete panel - Urine John Rolle MD Work Phone: Start: 08-11-2024 Urnls dip stick/tabl et reagent auto microscopy John Rolle MD Work Phone: Start: 07-30-2024 Anion gap measurement Cat Nichols MD Work Phone: Start: 07-30-2024 Blood count smear mc rscp w/mnl difrntl wbc count Dr. Callie Nichols MD Work Phone: Start: 07-30-2024 BUN/Creatinine ratio Dr Yasmin Nichols MD Work Phone: Start: 07-30-[address] Callie Nichols MD Work Phone: Start: 07-30-2024 Mean corpuscular hem oglobin concentration determination Dr. Callie Nichols MD Work Phone: Start: 07-30-2024 Measurement of renal function Dr. Callie Nichols MD Work Phone: Start: 07-30-2024 Nucleated red blood cell count procedure Dr. Callie Nichols MD Work Phone: Start: 07-30-2024 Platelet mean volume determination Dr. Callie Nichols MD Work Phone: Start: 07-28-2024 Assay of phosphorus inorganic Dr. Callie Nichols MD Work Phone: Start: 07-28-2024 Albumin/Globulin ratio Dr. Callie Nichols MD Work Phone: Start: 07-27-2024 Benzodiazepine measu rement, urine Dr. Callie Nichols MD Work Phone: Start: 07-27-2024 Cocaine measurement, urine Dr. Callie Nichols MD Work Phone: Start: 07-27-2024 Measurement of 3,4-methylenedioxymethamphet amine in urine Dr. Callie Nichols MD Work Phone: Start: 07-27-2024 Methadone measurement, urine Dr. Callie Nichols MD Work Phone: Start: 07-27-[address] Callie Nichols MD Work Phone: Start: 07-27-[address] Callie Nichols MD Work Phone: Start: 07-27-[address] Callie Nichols MD Work Phone: Start: 07-27-[address] Callie Nichols MD Work Phone: Start: 07-27-2024 CT of head without contrast Dr. Callie Nichols MD Work Phone: Start: 07-27-[address] Callie Nichols MD Work Phone: Start: 07-27-20[address] se measurement Dr. Callie Nichols MD Work Phone: Start: 07-10-[address] Joaquin Nichols MD Work Phone: Start: 07-10-2024 Anion gap measurement Cat Nichols MD Work Phone: Start: 07-10-2024 Assay of phosphorus inorganic Dr. Callie Nichols MD Work Phone: Start: 07-10-2024 BUN/Creatinine ratio Dr Yasmin Nichols MD Work Phone: Start: 07-10-[address] Callie Nichols MD Work Phone: Start: 07-10-2024 Mean corpuscular hem oglobin concentration determination Dr. Callie Nichols MD Work Phone: Start: 07-10-2024 Measurement of renal function Dr. Callie Nichols MD Work Phone: Start: 07-10-2024 Platelet mean volume determination Dr. Callie Nichols MD Work Phone: Start: 07-09-2024 Urine microscopy: red cells Dr. Callie Nichols MD Work Phone: Start: 07-09-2024 Urnls dip stick/tabl et reagent auto microscopy Dr. Callie Nichols MD Work Phone: Start: 07-08-2024 Blood count smear mc rscp w/mnl difrntl wbc count Dr. Callie Nichols MD Work Phone: Start: 07-08-[address] Yasmin Nichols MD Work Phone: Start: 07-08-2024 Nucleated red blood cell count procedure Dr. Callie Nichols MD Work Phone: Start: 07-08-2024 Total iron binding c apacity measurement Dr. Callie Nichols MD Work Phone: Start: 07-07-2024 Calculation of inter national normalized ratio Dr. Callie Nichols MD Work Phone: Start: 07-07-[address] Callie Nichols MD Work Phone: Start: 07-07-[address] Callie Nichols MD Work Phone: Start: 07-06-2024 Albumin/Globulin ratio Dr. Callie Nichols MD Work Phone: Start: 07-06-2024 CT of abdomen and pe lvis without contrast Dr. Callie Nichols MD Work Phone: Start: 07-06-2024 Benzodiazepine measu rement, urine Dr. Callie Nichols MD Work Phone: Start: 07-06-2024 Cocaine measurement, urine Dr. Callie Nichols MD Work Phone: Start: 07-06-2024 Measurement of 3,4-methylenedioxymethamphet amine in urine Dr. Callie Nichols MD Work Phone: Start: 07-06-2024 Methadone measurement, urine Dr. Callie Nichols MD Work Phone: Start: 07-06-[address] Callie Nichols MD Work Phone: Start: 07-06-[address] Callie Nichols MD Work Phone: Start: 07-06-[address] Callie Nichols MD Work Phone: Start: 07-06-[address] Callie Nichols MD Work Phone: Start: 07-06-[address] Callie Nichols MD Work Phone: Start: 07-06-[address] Callie Nichols MD Work Phone: Start: 07-06-[address] se measurement [address] Callie Nichols MD Work Phone: Start: 01-07-2024 Adult depression scr eening assessment Sree Siegel MD Work Phone: Start: 01-07-2024 Lipid 1996 panel - S christine or Plasma Sree Siegel MD Work Phone: Start: 10-07-2022 End: 10-07-[address] Callie roy Work Phone: Start: 03-18-2022 Plain x-ray of pelvi s and lower extremity Dr. Callie Nichols Work Phone: Plan of Treatment Date Care Activity Detail Author Start: 2046 RSV Immunization for Adults (1 - 1-dose 75+ series) RSV Immunization for Adults (1 - 1-dose 75+ series) [facility] Start: 2031 RSV Immunization age d 60 or older (1 - 1-dose 60+ series) RSV Immunization aged 60 or older (1 - 1-dose 60+ series) [facility] Start: 02-10-2029 DTaP/Tdap/Td Vaccine s (2 - Td or Tdap) DTaP/Tdap/Td Vaccines (2 - Td or Tdap) [facility] Start: 01-06-2029 Lipid panel Lipid Panel [facility] Start: 02-23-2027 Screening for malign ant neoplasm of colon [facility] Start: 01-19-2026 Diabetes mellitus screening Diabetes Screening [facility] Start: 03-06-2025 Medicare Annual Well ness (AWV) Medicare Annual Wellness (AWV) [facility] Start: 02-11-2025 Depression Monitoring Depression Mon itoring [facility] Start: 02-07-2025 Influenza vaccination [facility] Start: 02-04-2025 Pneumococcal Vaccine : Pediatrics (0 to 5 Years) and At-Risk Patients (6 to 64 Years) (1 of 2 - PCV) Pneumococcal Vaccine: Pediatrics (0 to 5 Years) and At-Risk Patients (6 to 64 Years) (1 of 2 - PCV) [facility] Comment on above: Postponed from 03/15 (Patient Refused) Start: 01-06-2025 Depression Screening Depression Scre enkayla [facility] Start: 01-06-2025 Hepatitis B Vaccines (1 of 3 - 19+ 3-dose series) Hepatitis B Vaccines (1 of 3 - 19+ 3-dose series) [facility] Comment on above: Postponed from 03/15 (Patient Refused) Start: 01-06-2025 HIV screening HIV Screening [facility] Comment on above: Postponed from 03/15 (Patient Refused) Start: 10-02-2024 [facility] Start: 07-30-2024 Patient discharge [facility] Start: 07-29-2024 [facility] Start: 07-29-2024 Care planning and pr oblem solving actions [facility] Start: 07-28-2024 Seizure precautions [facility] Start: 07-27-2024 Following clinical pathway protocol [facility] Start: 07-27-2024 Assessment of risk o f venous thromboembolism [facility] Start: 07-27-2024 Fall prevention [facility] Start: 07-27-2024 Inhalation therapy procedure [facility] Start: 07-27-2024 Introduction of urin ariela catheter [facility] Start: 07-27-2024 Notification of physician [facility] Start: 07-27-2024 Provision of activit y privileges [facility] Start: 07-27-2024 Referral to occupati onal therapist [facility] Start: 07-27-2024 Referral to service [facility] Start: 07-27-2024 Vital signs measurements [facility] Start: 07-27-2024 [facility] Start: 07-27-2024 Admission procedure [facility] Start: 07-27-2024 Consultation [facility] Start: 07-12-2024 Patient referral [facility] Work Phone: Start: 07-10-2024 Patient discharge [facility] Start: 07-10-2024 Referral to occupati onal therapist [facility] Start: 07-10-2024 Referral to service [facility] Start: 07-09-2024 Depression [facility] Start: 07-06-2024 Following clinical pathway protocol [facility] Start: 07-06-2024 Aspiration precautions [facility] Start: 07-06-2024 Assessment of risk o f venous thromboembolism [facility] Start: 07-06-2024 Documentation procedure [facility] Start: 07-06-2024 Inhalation therapy procedure [facility] Start: 07-06-2024 Insertion of cathete r into peripheral vein [facility] Start: 07-06-2024 Measuring intake and output [facility] Start: 07-06-2024 Providing care accor ding to standard [facility] Start: 07-06-2024 Provision of activit y privileges [facility] Start: 07-06-2024 Referral to service [facility] Start: 07-06-2024 Seizure precautions [facility] Start: 07-06-2024 Tobacco use cessatio n education [facility] Start: 07-06-2024 [facility] Start: 07-06-2024 Admission procedure [facility] Start: 07-06-2024 Consultation [facility] Start: 07-06-2024 Patient referral to dietitian [facility] Start: 05-04-2024 End: 05-04-2024 Patient encounter procedure [facility] Start: 03-07-2024 End: 04-06-2025 DBT Breast - bilateral screening Bilateral screening mammogram with tomosynthesis Imaging Routine Encounter for screening mammogram for malignant neoplasm of breast Expected: 03/07/2024, Expires: 04/06/2025 [facility] Comment on above: Expected: 03/07/2024 , Expires: 04/06/2025 Start: 02-08-2024 COVID-19 Vaccine ( season) COVID-19 Vaccine ( season) [facility] Start: 02-08-2024 Influenza vaccination Influenza Vacc ine (#1) [facility] Start: 02-05-2024 End: 02-04-2025 CT Chest for screening WO contrast CT lung screening low dose Imaging Routine Tobacco dependence Nicotine dependence, cigarettes, uncomplicated Expected: 02/05/2024, Expires: 02/04/2025 [facility] Comment on above: Expected: 02/05/2024 , Expires: 02/04/2025 Start: 02-05-2024 End: 02-05-2024 Patient encounter procedure 02/05/2024 9:40 AM EDT Office Visit [facility] [address] [place] [address] [place] [address] Lakia Boykin, [employer] - [employer] TE[employer] [address] [place] [address] [facility] Start: 01-07-2024 End: 01-06-2025 CBC panel - Blood by Automated count CBC Lab Routine Screening for deficiency anemia Expected: 01/07/2024 (Approximate), Expires: 01/06/2025 [facility] Comment on above: Expected: 01/07/2024 (Approximate), Expires: 01/06/2025 Start: 01-07-2024 End: 01-06-2025 Comprehensive metabolic 1998 panel - Serum or Plasma Comprehensive metabolic panel Lab Routine Seizure disorder (CMS/HCC) (HCC) Primary hypertension Expected: 01/07/2024 (Approximate), Expires: 01/06/2025 [facility] Work Phone: Comment on above: Expected: 01/07/2024 (Approximate), Expires: 01/06/2025 Start: 01-07-2024 End: 01-06-2025 Lipid 1996 panel - Serum or Plasma Lipid panel Lab Routine Coronary artery disease 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 angina pectoris Expected: 01/07/2024 (Approximate), Expires: 01/06/2025 [facility] Comment on above: Expected: 01/07/2024 (Approximate), Expires: 01/06/2025 Start: 01-07-2024 End: 01-07-2024 Patient encounter procedure 01/07/2024 9:00 AM EDT Office Visit [facility] [address] [place] [address] [place] [address] Sree Siegel MD [address] [place] [address], [place] [address] [facility] Start: 10-08-2023 Screening for malign ant neoplasm of breast Mammogram [facility] Start: 04-09-2023 Patient referral [facility] Work Phone: Start: 02-07-2023 COVID-19 Vaccine ( season) COVID-19 Vaccine ( season) [facility] Start: 11-02-2021 Patient referral [facility] Work Phone: Start: 2021 Screening for malign ant neoplasm of lung Lung Cancer Screening [facility] Start: 2021 Zoster Vaccines (1 of 2) Zoste r Vaccines (1 of 2) [facility] Start: 2011 Screening for malign ant neoplasm of breast Mammogram [facility] Start: 2001 Screening for malign ant neoplasm of cervix [facility] Start: 1992 Screening for malign ant neoplasm of cervix [facility] Start: 1990 Hepatitis A Vaccines (1 of 2 - Risk 2-dose series) Hepatitis A Vaccines (1 of 2 - Risk 2-dose series) [facility] Start: 1990 Hepatitis B Vaccines (1 of 3 - 19+ 3-dose series) Hepatitis B Vaccines (1 of 3 - 19+ 3-dose series) [facility] Start: 1990 Pneumococcal vaccination Pneum ococcal Vaccine (1 of 2 - PCV) [facility] Start: 1990 Pneumococcal Vaccine : 50+ Years (1 of 2 - PCV) Pneumococcal Vaccine: 50+ Years (1 of 2 - PCV) [facility] Start: 1989 Diabetes mellitus screening Diabetes Screening [facility] Start: 1989 Hepatitis C screening Hepatitis C Sc reening [facility] Start: 1983 Depression Screening Depression Scre ening [facility] Start: 1977 Pneumococcal Vaccine : Pediatrics (0 to 5 Years) and At-Risk Patients (6 to 64 Years) (1 of 2 - PCV) Pneumococcal Vaccine: Pediatrics (0 to 5 Years) and At-Risk Patients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 CBC WITH AUTO DIFFERENTIAL - Abnormal Result Value Auto WBC 5.7 RBC 3.09 (*) Hemoglobin 9.8 (*) Hematocrit 30.2 (*) MCV 97.7 MCH 31.7 MCHC 32.5 RDW 14.6 Platelets 162 MPV 9.2 nRBC 0.0 Neutrophils Relative 62.0 Lymphocytes Relative 22.3 Monocytes Relative 11.6 Eosinophils Relative 3.0 Basophils Relative 0.7 Immature Grans % 0.4 Neutrophils Absolute 3.5 Lymphocytes Absolute 1.3 Monocytes Absolute 0.7 Eosinophils Absolute 0.2 Basophils Absolute 0.0 Immature Grans Absolute 0.0 COMPREHENSIVE METABOLIC PANEL - Abnormal SODIUM 140 POTASSIUM 4.1 CHLORIDE 112 (*) CARBON DIOXIDE 22 ANION GAP 6 UREA NITROGEN 12 CREATININE 0.77 GLUCOSE 116 (*) CALCIUM 9.3 AST (SGOT) 29 ALT 18 ALKALINE PHOSPHATASE 81 ALBUMIN 3.5 BILIRUBIN, TOTAL 0.3 TOTAL PROTEIN 7.2 eGFR >90.0 NT PRO BNP - Normal NT PRO BNP 43 D-DIMER,QUANTITATIVE - Normal D-DIMER, INNOVANCE 0.42 Narrative: [employer] D-Dimer values of <0.50 mg/L FEU can be used in combination with a pre-test probability model (e.g. Well's) to exclude pulmonary embolism (PE) disease, as well as an aid in the diagnosis of deep vein thrombosis (DVT). RADIOLOGY : Medications ordered: Medications aspirin chewable tablet 324 mg (324 mg Oral Given 09/20/24 1134) ED Course as of 09/20/24 1223 FriSep 20, 2024 1115 Magnesium (08/14/24 0657) Prior medical records were reviewed: normal. Ordered by addictionologist [NM] 1116 hCG, quantitative (08/11/24 1449) Prior medical records were reviewed: normal [NM] ED Course User Index [NM] Abhinav Gonzalez MD Diagnoses as of 09/20/24 1223 Shortness of breath Leg swelling Smoker * No order type specified * Our workup consisted of ordering/reviewing: Orders Placed This Encounter Procedures XR chest 2 views CBC auto differential NT PRO BNP Comprehensive metabolic panel D-dimer, quantitative ECG 12 lead MDM: 54 y.o. presented with shortness of breath. The differential diagnosis considered: Blood clot, pneumothorax, heart failure, liver problems, arrhythmia. Diagnostic tests considered but not performed: ua. No urinary symptoms Consideration for escalation of care with: diagnostics ct chest, however, normal d dimer hence not ordered . Prescription medications considered but not prescribed: lasix po. Unclear why leg swelling . REVAL: CRITICAL CARE TIME PROCEDURES: Procedures FINAL IMPRESSION 1. Shortness of breath 2. Leg swelling 3. Smoker DISPOSITION/PLAN DISPOSITION Discharge 09/20/2024 12:21:04 PM PATIENT REFERRED TO: Callie Nichols [address] [facility] [address] [facility] [address] Call in 1 day I prescribed: New Prescriptions No medications on file (Comment: this report has been produced using speech recognition software and may contain errors related to that system including errors in grammar, punctuation, and spelling, as well as words and phrases that may be inappropriate) Abhinav Gonzalez MD (electronically signed) Abhinav Gonzalez MD 09/20/24 1223 T [facility] 09-20-2024 Note HNO ID: [id number] Author: PAUL CHRISTIANSON PA-C Service: ? Author Type: Physician Aerial Gunner Type: Progress Notes Filed: 09/20/2024 10:05 Note Text: PATIENT NAME: Felton Pa DATE OF : 1970 TODAYS' DATE: 09/20/2024 Recording using [employer] software for draft documentation of the visit was discussed with the patient/authorized underwriting account representative; all questions welcomed and answered. Patient/authorized underwriting account representative agreed to proceed Surgical mask and gloves worn for all in-person care. Triage: SUBJECTIVE: Patient presents with: other: Both Ankles started to swell up on . SOB. Both hands tingling. History of Present Illness: This is a 54 year old that is here today for concern for swelling in the feet and ankles, bilateral hand tingling, and shortness of breath x 4 days. Discharged last month from admission for alcohol withdrawal, dehydration, and hypokalemia. H/O HTN and seizure disorder. Noted left foot/calf/ankle swelling 4 days ago, but no the right foot/claf/ankle are also swollen. Still greater on left. Noted a new feeling of FIERRO today too. No h/o edema or CHF/renal problems. Denies recent cough or sick symptoms. Denies fever, chills, sweats, body aches, or fatigue. Patient denies chest pain , heart palpitations, hear racing, n/v, chest pressure/chest tightness, wheezing, increased WOB, or chest pain. No n/v/d, AGRAWAL, or rash. Chart review: Discharged last month from admission for alcohol withdrawal, dehydration, and hypokalemia. Covid Immunization Dates Current Care Gaps Covid-19 Vaccine ( season) Never done No completion, postpone, frequency change, or communication history exists for this topic. Asthma: none Pneumonia: none Tobacco: none Pain on scale of 0-10 with 0 being no pain and 10 being greatest pain: 0 Nothing makes the symptoms better. Nothing makes them worse. Self-treatment:. none The severity is mild and the symptoms are not improving. The patient did not have a similar problem in the last 3 months. The patient did not take any antibiotics in the last 3 months. Barriers to learning: none. Reviewed meds, OTCs, herbals or supplements. Reviewed allergies, medications, social history, and past medical history. Allergies: Allergies: Bupropion Other: See Comments, Unknown Oxcarbazepine Rash Penicillins Unknown Comment:have not taken since I was a baby Past Medical History: No past medical history on file. Past Surgical History: No past surgical history on file. Family History: No family history on file. Tobacco History: Tobacco Use: Not on file Medications: Current Outpatient Medications Medication Sig Dispense Refill methocarbamol (ROBAXIN) 750 mg tablet take PRN one tablet by mouth starting at 3:00 PM three times a day at 6:00 AM, 3:00 PM, 10:00 PM 24 hour max: 3 tablet 90 tablet 0 traZODone (DESYREL) 50 mg tablet take as needed one tablet by mouth daily at 10:00 PM 24 hour max: 1 tablet Additional instructions: at bedtime 90 tablet 0 ARIPiprazole (ABILIFY) 2 mg tablet take one tablet by mouth daily at 10:00 PM 90 tablet 0 escitalopram oxalate (LEXAPRO) 20 mg tablet Take 1 tablet by mouth every morning. 90 tablet 0 lisinopril (ZESTRIL) 5 mg tablet Take 1 tablet by mouth every morning. [address] (PROTONIX) 40 mg tablet take one tablet by mouth daily at 6:00 AM Additional instructions: 1/2 to 1 hour before morning meal 90 tablet 0 spironolactone (ALDACTONE) 25 mg tablet take three tablet by mouth daily at 6:00 AM Additional instructions: 75 mg daily 270 tablet 0 zonisamide (ZONEGRAN) 100 mg capsule take two capsule by mouth daily at 10:00 PM 180 capsule 0 zonisamide (ZONEGRAN) 100 mg capsule take one capsule by mouth daily at 6:00 AM 90 capsule 0 No current facility-administered medications for this visit. REVIEW OF SYSTEMS Review of Systems Constitutional: Negative. HENT: Negative. Eyes: Negative. Respiratory: Positive for shortness of breath. Cardiovascular: Negative. Ankle swelling Gastrointestinal: Negative. Endocrine: Negative. Genitourinary: Negative. Musculoskeletal: Negative. Skin: Negative. Allergic/Immunologic: Negative. Neurological: Negative. Hematological: Negative. Psychiatric/Behavioral: Negative. All other systems reviewed and are negative. Vitals: BP 111/70 (BP Site: Left Arm, BP Position: Sitting, BP Cuff Size: Regular Adult) Pulse 104 Temp 36.4 ?C (97.6 ?F) (Right Tympanic) Resp 16 Wt 85.3 kg (188 lb 0.8 oz) SpO2 100% Physical Exam: Physical Exam Vitals reviewed. Constitutional: General: She is not in acute distress. Appearance: Normal appearance. She is well-developed and normal weight. She is not ill-appearing, toxic-appearing or diaphoretic. HENT: Head: Normocephalic and atraumatic. Cardiovascular: Rate and Rhythm: Normal rate and regular rhythm. Heart sounds: N (more content not included)... [facility] 09-17-2024 Evaluation note Diagnosis Onset Date Resolution Swelling of lower leg acute Sep 2:05pm Anemia chronic September 17 2:05pm Anxiety and depression chronic Ap [facility] 2024 2:05pm Hypertension chronic September 17, 2024 2:05pm Hypersomnia acute October 07, 2024 8:38am Low back pain acute October 07 8:38am Anemia chronic October 07, 2024 8:38am Epilepsy chronic October 07, 2024 8:38am Right hip pain chronic October 07 8:38am Bilateral lower extremity edema acute October 15, 2024 2: 50pm Low back pain acute December 07 025 8:07am Epilepsy chronic December 07, 2024 8:07am Right hip pain chronic December 07, 2024 8:07am Cholelithiasis acute January 03, 2025 7:31am History of UTI acute January 03, 2025 7:31am Potassium (K) deficiency acute January 03, 2025 7:31am Alcoholic liver disease chronic J beto 2024 7:31am Anemia chronic January 03 7:31am Anxiety and depression chronic Ju 2024 7:31am Hypertension chronic January 03 025 7:31am [facility] Work Phone: [phone] Note Attestation signed by Yuriy Lopez MD at 08/17/2024 4:33 PM I saw the patient on the day of discharge and agree with the discharge plans and disposition as recorded by the resident. I personally spent over 30 minutes in the discharge planning process. Yuriy Lopez MD ADDICTION MEDICINE 4E DETOX UNIT DISCHARGE SUMMARY __ Patient MRN Felton Pa [id number] 1970 Admit Date Discharge Date 08/11/2024 08/17/2024 Primary Care Physician CALLIE NICHOLS Admitting Physician Gary Quarles MD Consultants N/A. Reason for Admission Felton Pa was admitted for detox from alcohol after admitting to drinking too much since her son completed suicide on 06/04/2024. DISCHARGE DIAGNOSIS Active Problems Principal Problem: Alcohol withdrawal syndrome with complication (HCC) Active Problems: Thrombocytopenia (HCC) Severe alcohol use disorder (HCC) Transaminitis Seizure disorder Hypertension CAD Depression Anxiety Resolved Problems Alcohol withdrawal syndrome with complication (HCC) Hypokalemia Hyponatremia Hypomagnesemia Body mass index is 28.87 kg/m?. DETOXIFICATION COURSE Detoxed with phenobarbital and prn medications for alcohol withdrawal symptoms. Adjunct folic acid, thiamine, and gabapentin given. Home medications restarted. Vitals height is 1.6 m (5' 3) and weight is 73.9 kg (163 lb). Her temporal temperature is 36.6 ?C (97.9 ?F). Her blood pressure is 114/66 and her pulse is 78. Her respiration is 16 and oxygen saturation is 96%. Physical Exam Vitals and nursing note reviewed. Constitutional: General: She is not in acute distress. Appearance: Normal appearance. She is not ill-appearing, toxic-appearing or diaphoretic. HENT: Head: Normocephalic and atraumatic. Nose: Nose normal. Mouth/Throat: Mouth: Mucous membranes are moist. Pharynx: Oropharynx is clear. Eyes: Conjunctiva/sclera: Conjunctivae normal. Cardiovascular: Rate and Rhythm: Normal rate. Pulses: Normal pulses. Pulmonary: Effort: Pulmonary effort is normal. Abdominal: General: Abdomen is flat. Tenderness: There is no abdominal tenderness. Musculoskeletal: General: Normal range of motion. Cervical back: Normal range of motion. Skin: General: Skin is warm. Neurological: Mental Status: She is alert and oriented to person, place, and time. Motor: No tremor. Psychiatric: Attention and Perception: Attention and perception normal. Mood and Affect: Mood and affect normal. Speech: Speech normal. Behavior: Behavior normal. Behavior is cooperative. Thought Content: Thought content normal. Thought content does not include homicidal or suicidal ideation. Cognition and Memory: Cognition and memory normal. Judgment: Judgment normal. Labs Results for orders placed or performed during the hospital encounter of 08/11/24 SARS-CoV-2 Antigen Collection Time: 08/11/24 2:18 PM Specimen: Nose; Swab Result Value Ref Range SARS-CoV-2 Antigen Negative Negative CBC auto differential Collection Time: 08/11/24 2:18 PM Result Value Ref Range Auto WBC 4.4 3.6 - 10.7 10*3/uL RBC 3.75 (L) 3.80 - 5.20 10*6/uL Hemoglobin 12.4 11.7 - 16.0 g/dL Hematocrit 36.3 35.0 - 47.0 % MCV 96.8 77.0 - 99.0 fL MCH 33.1 26.0 - 34.0 pg MCHC 34.2 30.5 - 36.0 % RDW 15.2 (H) 11.5 - 15.0 % Platelets 102 (L) 140 - 440 10*3/uL MPV 9.8 9.0 - 12.7 fL nRBC 0.0 0.0 - 2.0 /100 WBCs IPF 3 Comprehensive metabolic panel Collection Time: 08/11/24 2:18 PM Result Value Ref Range SODIUM 135 (L) 136 - 145 mmol/L POTASSIUM 3.3 (L) 3.5 - 5.1 mmol/L CHLORIDE 104 98 - 107 mmol/L CARBON DIOXIDE 18 (L) 22 - 29 mmol/L ANION GAP 13 3 - 13 mmol/L UREA NITROGEN 5 (L) 9 - 23 mg/dL CREATININE 0.66 0.57 - 1.11 mg/dL GLUCOSE 190 (H) 74 - 100 mg/dL CALCIUM 9.4 8.4 - 10.2 mg/dL AST (SGOT) 70 (H) <34 U/L ALT 30 (H) <30 U/L ALKALINE PHOSPHATASE 110 40 - 150 U/L ALBUMIN 4.1 3.5 - 5.0 g/dL BILIRUBIN, TOTAL 1.9 (H) <1.2 mg/dL TOTAL PROTEIN 8.4 (H) 6.4 - 8.3 g/dL eGFR >90.0 >60.0 mL/min/1.73m*2 hCG, quantitative Collection Time: 08/11/24 2:18 PM Result Value Ref Range HCG QUANTITATIVE 2.6 Females <5 mIU/mL Ethanol Collection Time: 08/11/24 2:18 PM Result Value Ref Range ETHANOL IN SER/PLAS <10 <10 mg/dL Drug screen panel, emergency Collection Time: 08/11/24 2:18 PM Result Value Ref Range AMPHETAMINE SCREEN Negative BARBITURATES SCREEN Positive BENZODIAZEPINE SCREEN Negative COCAINE METAB. SCREEN Negative METHADONE SCREEN Negative OPIATES SCREEN Negative OXYCODONE SCREEN Negative PHENCYCLIDINE SCREEN Negative FENTANYL SCREEN, UR QUAL Negative Complete Urinalysis Collection Time: 08/11/24 2:18 PM (more content not included)...[facility] [id number] Hospital course Narrative* Elsa Bacon, DO - 08/17/2024 9:51 AM EDT Images from the original note were not included. ADDICTION MEDICINE DETOX UNIT DISCHARGE SUMMARY __ Patient MRN Felton Pa [id number] 1970 Admit Date Discharge Date 08/11/2024 08/17/2024 Primary Care Physician CALLIE NICHOLS Admitting Physician Gary Quarles MD Consultants N/A. Reason for Admission Felton Pa was admitted for detox from alcohol after admitting to drinking too much since her son completed suicide on 06/04/2024. DISCHARGE DIAGNOSIS Active Problems Principal Problem: Alcohol withdrawal syndrome with complication (HCC) Active Problems: Thrombocytopenia (HCC) Severe alcohol use disorder (HCC) Transaminitis Seizure disorder Hypertension CAD Depression Anxiety Resolved Problems Alcohol withdrawal syndrome with complication (HCC) Hypokalemia Hyponatremia Hypomagnesemia Body mass index is 28.87 kg/m . DETOXIFICATION COURSE Detoxed with phenobarbital and prn medications for alcohol withdrawal symptoms. Adjunct folic acid,thiamine, and gabapentin given. Home medications restarted. Vitals height is 1.6 m (5' 3) and weight is 73.9 kg (163 lb). Her temporal temperature is 36.6 C (97.9 F). Her blood pressure is 114/66 and her pulse is 78. Her respiration is 16 and oxygen saturation is 96%. Physical Exam Vitals and nursing note reviewed. Constitutional: General: She is not in acute distress. Appearance: Normal appearance. She is not ill-appearing, toxic-appearing or diaphoretic. HENT: Head: Normocephalic and atraumatic. Nose: Nose normal. Mouth/Throat: Mouth: Mucous membranes are moist. Pharynx: Oropharynx is clear. Eyes: Conjunctiva/sclera: Conjunctivae normal. Cardiovascular: Rate and Rhythm: Normal rate. Pulses: Normal pulses. Pulmonary: Effort: Pulmonary effort is normal. Abdominal: General: Abdomen is flat. Tenderness: There is no abdominal tenderness. Musculoskeletal: General: Normal range of motion. Cervical back: Normal range of motion. Skin: General: Skin is warm. Neurological: Mental Status: She is alert and oriented to person, place, and time. Motor: No tremor. Psychiatric: Attention and Perception: Attention and perception normal. Mood and Affect: Mood and affect normal. Speech: Speech normal. Behavior: Behavior normal. Behavior is cooperative. Thought Content: Thought content normal. Thought content does not include homicidal or suicidal ideation. Cognition and Memory: Cognition and memory normal. Judgment: Judgment normal. Labs Results for orders placed or performed during the hospital encounter of 08/11/24 SARS-CoV-2 Antigen Collection Time: 08/11/24 2:18 PM Specimen: Nose; Swab Result Value Ref Range SARS-CoV-2 Antigen Negative Negative CBC auto differential Collection Time: 08/11/24 2:18 PM Result Value Ref Range Auto WBC 4.4 3.6 - 10.7 10*3/uL RBC 3.75 (L) 3.80 - 5.20 10*6/uL Hemoglobin 12.4 11.7 - 16.0 g/dL Hematocrit 36.3 35.0 - 47.0 % MCV 96.8 77.0 - 99.0 fL MCH 33.1 26.0 - 34.0 pg MCHC 34.2 30.5 - 36.0 % RDW 15.2 (H) 11.5 - 15.0 % Platelets 102 (L) 140 - 440 10*3/uL MPV 9.8 9.0 - 12.7 fL nRBC 0.0 0.0 - 2.0 /100 WBCs IPF 3 Comprehensive metabolic panel Collection Time: 08/11/24 2:18 PM Result Value Ref Range SODIUM 135 (L) 136 - 145 mmol/L POTASSIUM 3.3 (L) 3.5 - 5.1 mmol/L CHLORIDE 104 98 - 107 mmol/L CARBON DIOXIDE 18 (L) 22 - 29 mmol/L ANION GAP 13 3 - 13 mmol/L UREA NITROGEN 5 (L) 9 - 23 mg/dL CREATININE 0.66 0.57 - 1.11 mg/dL GLUCOSE 190 (H) 74 - 100 mg/dL CALCIUM 9.4 8.4 - 10.2 mg/dL AST (SGOT) 70 (H) <34 U/L ALT 30 (H) <30 U/L ALKALINE PHOSPHATASE 110 40 - 150 U/L ALBUMIN 4.1 3.5 - 5.0 g/dL BILIRUBIN, TOTAL 1.9 (H) <1.2 mg/dL TOTAL PROTEIN 8.4 (H) 6.4 - 8.3 g/dL eGFR >90.0 >60.0 mL/min/1.73m*2 hCG, quantitative Collection Time: 08/11/24 2:18 PM Result Value Ref Range HCG QUANTITATIVE 2.6 Females <5 mIU/mL Ethanol Collection Time: 08/11/24 2:18 PM Result Value Ref Range ETHANOL IN SER/PLAS <10 <10 mg/dL Drug screen panel, emergency Collection Time: 08/11/24 2:18 PM Result Value Ref Range AMPHETAMINE SCREEN Negative BARBITURATES SCREEN Positive BENZODIAZEPINE SCREEN Negative COCAINE METAB. SCREEN Negative METHADONE SCREEN Negative OPIATES SCREEN Negative OXYCODONE SCREEN Negative PHENCYCLIDINE SCREEN Negative FENTANYL SCREEN, UR QUAL Negative Complete Urinalysis Collection Time: 08/11/24 2:18 PM Result Value Ref Range Color, Urine Light Yellow Lt. Yellow Clarity, Urine Clear Clear pH, Urine 7.0 5.0 - 8.0 pH Leukocytes, Urine Negative Negative Kishore/uL Nitrite, Urine Negative Negative Protein, Urine 100 (A) Negative mg/dL Glucose, Urine 100 (A) Normal (<70) mg/dL Bilirubin, Urine Negative Negative mg/dL Ketones, Urine 20 (A) Negative mg/dL Urobilinogen, Urine Normal Normal (0-1) mg/dL Blood, Urine 0.03 (A) Negative mg/dL Volume, Urine 12 mL RBC, Urine 0-2 0 - 2 /HPF WBC, Urine 0-2 0 - 5 /HPF Squamous Epithelial, Urine 0-2 3 - 5 /HPF Bacteria, Urine Few (A) Negative /HPF SPECIFIC GRAVITY OF URINE (NUMERIC) 1.013 1.005 - 1.030 Lipase Collection Time: 08/11/24 2:18 PM Result Value Ref Range LIPASE 9 <55 U/L Man Differential Collection Time: 08/11/24 2:18 PM Result Value Ref Range Adjusted WBC 4.4 3.6 - 10.7 10*3/uL Neutrophils % 85 (H) 38 - 82 % Bands % 2 (H) <=0 % Lymphocytes % 7 (L) 15 - 45 % Atypical Lymphocytes % 1 (H) <=0 % Monocytes % 4 (L) 5 - 13 % Eosinophils % 0 0 - 6 % Basophils % 1 0 - 2 % Absolute Neutrophil Count 3.8 1.8 - 7.0 10*3/uL Segs Absolute 3.8 1.8 - 7.5 10*3/uL Bands Absolute 0.1 (H) <=0.0 10*3/uL Lymphocytes Absolute 0.3 (L) 1.0 - 4.3 10*3/uL Atypical Lymphs Absolute 0.0 <=0.0 10*3/uL Monocytes Absolute 0.2 0.0 - 0.9 10*3/uL Eosinophils Absolute 0.0 0.0 - 0.5 10*3/uL Basophils Absolute 0.0 0.0 - 0.2 10*3/uL RBC Morphology Normal WBC Morphology Normal PLT Morphology Normal Total Counted 100 Neutrophils Manual 85 Lymphocytes Manual 7 Monocytes Manual 4 Eosinophils Manual 0 0 - 1 Basophils Manual 1 Bands Manual 2 Atypical Lymphocytes Manual 1 Differential Method Manual differential performed ETHYL GLUCURONIDE SCREEN, URINE Collection Time: 08/11/24 2:18 PM Result Value Ref Range ETHYL GLUCURONIDE, URINE Positive Negative ECG 12 lead Collection Time: 08/11/24 2:21 PM Result Value Ref Range Heart Rate 90 bpm QRSD Interval 87 ms QT Interval 409 ms QTC Interval 487 ms P [place] 79 degrees QRS [place] 49 degrees T Wave [place] 58 degrees OK Interval 122 ms CBC auto differential Collection Time: 08/13/24 7:19 AM Result Value Ref Range Auto WBC 4.0 3.6 - 10.7 10*3/uL RBC 3.17 (L) 3.80 - 5.20 10*6/uL Hemoglobin 10.4 (L) 11.7 - 16.0 g/dL Hematocrit 30.6 (L) 35.0 - 47.0 % MCV 96.5 77.0 - 99.0 fL MCH 32.8 26.0 - 34.0 pg MCHC 34.0 30.5 - 36.0 % RDW 15.2 (H) 11.5 - 15.0 % Platelets 94 (L) 140 - 440 10*3/uL MPV 10.8 9.0 - 12.7 fL nRBC 0.0 0.0 - 2.0 /100 WBCs Neutrophils Relative 46.7 38.0 - 82.0 % Lymphocytes Relative 41.4 15.0 - 45.0 % Monocytes Relative 9.2 5.0 - 13.0 % Eosinophils Relative 1.5 0.0 - 6.0 % Basophils Relative 0.7 0.0 - 2.0 % Immature Grans % 0.5 0.0 - 2.0 % Neutrophils Absolute 1.9 1.8 - 7.5 10*3/uL Lymphocytes Absolute 1.7 1.0 - 4.3 10*3/uL Monocytes Absolute 0.4 0.0 - 0.9 10*3/uL Eosinophils Absolute 0.1 0.0 - 0.5 10*3/uL Basophils Absolute 0.0 0.0 - 0.2 10*3/uL Immature Grans Absolute 0.0 <0.1 10*3/uL IPF 5 Comprehensive metabolic panel Collection Time: 08/13/24 7:19 AM Result Value Ref Range SODIUM 133 (L) 136 - 145 mmol/L POTASSIUM 3.0 (L) 3.5 - 5.1 mmol/L CHLORIDE 104 98 - 107 mmol/L CARBON DIOXIDE 19 (L) 22 - 29 mmol/L ANION GAP 10 3 - 13 mmol/L UREA NITROGEN 12 9 - 23 mg/dL CREATININE 0.74 0.57 - 1.11 mg/dL GLUCOSE 87 74 - 100 mg/dL CALCIUM 8.5 8.4 - 10.2 mg/dL AST (SGOT) 43 (H) <34 U/L ALT 20 <30 U/L ALKALINE PHOSPHATASE 82 40 - 150 U/L ALBUMIN 3.1 (L) 3.5 - 5.0 g/dL BILIRUBIN, TOTAL 0.9 <1.2 mg/dL TOTAL PROTEIN 6.0 (L) 6.4 - 8.3 g/dL eGFR >90.0 >60.0 mL/min/1.73m*2 Magnesium Collection Time: 08/13/24 7:19 AM Result Value Ref Range MAGNESIUM 1.3 (L) 1.6 - 2.6 mg/dL CBC auto differential Collection Time: 08/14/24 5:35 AM Result Value Ref Range Auto WBC 4.5 3.6 - 10.7 10*3/uL RBC 3.18 (L) 3.80 - 5.20 10*6/uL Hemoglobin 10.4 (L) 11.7 - 16.0 g/dL Hematocrit 31.7 (L) 35.0 - 47.0 % MCV 99.7 (H) 77.0 - 99.0 fL MCH 32.7 26.0 - 34.0 pg MCHC 32.8 30.5 - 36.0 % RDW 15.1 (H) 11.5 - 15.0 % Platelets 100 (L) 140 - 440 10*3/uL MPV 10.6 9.0 - 12.7 fL nRBC 0.0 0.0 - 2.0 /100 WBCs Neutrophils Relative 60.2 38.0 - 82.0 % Lymphocytes Relative 28.3 15.0 - 45.0 % Monocytes Relative 8.9 5.0 - 13.0 % Eosinophils Relative 2.0 0.0 - 6.0 % Basophils Relative 0.4 0.0 - 2.0 % Immature Grans % 0.2 0.0 - 2.0 % Neutrophils Absolute 2.7 1.8 - 7.5 10*3/uL Lymphocytes Absolute 1.3 1.0 - 4.3 10*3/uL Monocytes Absolute 0.4 0.0 - 0.9 10*3/uL Eosinophils Absolute 0.1 0.0 - 0.5 10*3/uL Basophils Absolute 0.0 0.0 - 0.2 10*3/uL Immature Grans Absolute 0.0 <0.1 10*3/uL Comprehensive metabolic panel Collection Time: 08/14/24 5:35 AM Result Value Ref Range SODIUM 131 (L) 136 - 145 mmol/L POTASSIUM 3.4 (L) 3.5 - 5.1 mmol/L CHLORIDE 106 98 - 107 mmol/L CARBON DIOXIDE 18 (L) 22 - 29 mmol/L ANION GAP 7 3 - 13 mmol/L UREA NITROGEN 11 9 - 23 mg/dL CREATININE 0.75 0.57 - 1.11 mg/dL GLUCOSE 118 (H) 74 - 100 mg/dL CALCIUM 8.3 (L) 8.4 - 10.2 mg/dL AST (SGOT) 44 (H) <34 U/L ALT 23 <30 U/L ALKALINE PHOSPHATASE 79 40 - 150 U/L ALBUMIN 3.3 (L) 3.5 - 5.0 g/dL BILIRUBIN, TOTAL 0.8 <1.2 mg/dL TOTAL PROTEIN 6.7 6.4 - 8.3 g/dL eGFR >90.0 >60.0 mL/min/1.73m*2 Magnesium Collection Time: 08/14/24 5:35 AM Result Value Ref Range MAGNESIUM 1.6 1.6 - 2.6 mg/dL Basic metabolic panel Collection Time: 08/15/24 4:15 AM Result Value Ref Range SODIUM 136 136 - 145 mmol/L POTASSIUM 3.4 (L) 3.5 - 5.1 mmol/L CHLORIDE 105 98 - 107 mmol/L CARBON DIOXIDE 18 (L) 22 - 29 mmol/L UREA NITROGEN 7 (L) 9 - 23 mg/dL CREATININE 0.75 0.57 - 1.11 mg/dL GLUCOSE 114 (H) 74 - 100 mg/dL CALCIUM 8.9 8.4 - 10.2 mg/dL ANION GAP 13 3 - 13 mmol/L eGFR >90.0 >60.0 mL/min/1.73m*2 Imaging ECG 12 lead Result Date: 08/11/2024 EKG shows NSR with PACs. Normal axis, normal OK QRS and prolonged QTC intervals. No STEMI, no SVT, no LVH. No old EKG. Electronically Signed On 08-11-2024 14:30:03 EST by John Rolle Scheduled Inpatient Meds PRN Inpatient Meds DISCHARGE INSTRUCTIONS Activity activity as tolerated. Disposition Residential facility - [facility]. Medication List START taking these medications naltrexone ER injection Commonly known as: Vivitrol Inject 4 mL (380 mg) into the buttocks every 28 (twenty-eight) days. Do not start before September 13, 2024. Start taking on: September 13, 2024 CONTINUE taking these medications escitalopram 20 MG tablet Commonly known as: Lexapro Take 1 tablet (20 mg) by mouth daily. flurbiprofen 100 MG tablet Commonly known as: Ansaid lisinopril 5 MG tablet spironolactone 25 MG tablet Commonly known as: Aldactone Take 3 tablets (75 mg) by mouth daily. zonisamide 100 MG capsule Commonly known as: Zonegran Where to Get Your Medications Information about where to get these medications is not yet available Ask your nurse or doctor about these medications naltrexone ER injection Follow Up [facility] Office [address] [place] [address] Follow up on 08/26/2024 at 8:00am for counseling session. [facility] [address], [place] [address] Go on 08/16/2024 at 1:30pm for virtual intake assessment for Intensive Outpatient Program [facility] [address], [place] [address] Call for admission to residential treatment and addiction medicine in follow up. Callie Sofia Maycoerin [address] [facility] [id number] No future appointments. The patient was also instructed to: Attend AA/NA meetings or a similar 12-step program. Abstain from any mind or mood altering substances that are not prescribed. Follow up with their primary care doctor and/or psychiatrist as soon as possible. Pending studies or issues to follow up with: Patient to receive future Vivitrol injection on 09/13/24. Follow up CMP to monitor liver enzymes and K. Time spent on discharge summary: > 30 minutes Cosigned by Yuriy Lopez MD at 08/17/2024 4:33 PM EDT Associated attestation - Yuriy Lopez MD - 08/17/2024 4:33 PM EDT I saw the patient on the day of discharge and agree with the discharge plans and disposition as recorded by the resident. I personally spent over 30 minutes in the discharge planning process. Yuriy Lopez MD documented in this [facility]03-11-2025 Nurse Note* Alejandra Escalona RN - 08/17/2024 9:39 AM EDT Home going instructions given to the patient. She voiced a clear understanding of the information. Relapse prevention discussed with the patient. She voiced understanding the risk of resuming use. She was given a little red big book to help with getting informations for AA meetings once out of treatment. She was provided the SDOH papers from the [facility]. She spoke with her significant other to bring her personal items to the facility. She was given her clothes to change into and gathered her items from her room. She changed into the clothes to wear out. Appropriate papers signed and copy to the patient at discharge. 0952 She was walked down to meet the [employer] powder truck driver. Our tech walked her down. She was given theremainder of her items back. She was without complaint at discharge. [id number] Nurse [facility]* Alejandra Escalona RN - 08/17/2024 9:39 AM EDT Home going instructions given to the patient. She voiced a clear understanding of the information. Relapse prevention discussed with the patient. She voiced understanding the risk of resuming use. She was given a little red big book to help with getting informations for AA meetings once out of treatment. She was provided the SDOH papers from the [facility]. She spoke with her significant other to bring her personal items to the facility. She was given her clothes to change into and gathered her items from her room. She changed into the clothes to wear out. Appropriate papers signed and copy to the patient at discharge. 0952 She was walked down to meet the [employer] powder truck driver. [employer] walked her down. She was given theremainder of her items back. She was without complaint at discharge. * Sury Bustillo RN - 08/16/2024 9:47 PM EDT Patient has been cooperative and friendly. Alert and oriented x4. Ambulating independently. Independent with ADLs. Social/pleasant with staff and peers; on unit talking and watching TV. Taking scheduled medications whole. PRN Trazodone for sleep and Mylanta for indigestion. Denies SI/HI. No delusions voiced/noted. No hallucinations voiced/noted. Safety maintained. * Jing Womack RN - 08/16/2024 11:16 AM EDT Patient received awake in lounge at shift change and already ate breakfast at shift change, and allsafety measures in place. Patient wears eye glasses and took shower. Patient eating and drinking well,and compliant with all medications Q-shift. Patient. Received call from Aba Chute at 1400. Patienthas been excepted. Aba Mofibo will P/U patient late AM, Early PM- 08/18/23. Patient has already received Vivitrol Injection today at 1100. Patient denies S.I.,H.I.,AH/VH/TH Q-Shift. Continue to monitor patient. Patient received PO PRN Tylenol as per orders at 1110 for back pain. * Nicolasa Loaiza - 08/15/2024 8:20 PM EDT Patient alert and oriented, med compliant, denies SI/HI/AVH, N/V/D. Patient complaint of constipation, given PRN Senokot. Patient is laying in bed reading with no other complaints at this time. Call light is within reach, encouraged to notify staff of any change in condition. Will continue to monitor for safety. Cosigned by Lauren Mercado RN at 08/16/2024 2:59 AM EDT * Mayte Vazquez RN - 08/14/2024 10:43 PM EST Pt has been napping on and off this evening, she wakes up and reads her book then goes back to sleep. She is up and steady. She is A and O x 4. She denies SI/HI/AVH. She reports her appetite has beenfair today. She has been compliant with her medications. * Gertrude Silva RN - 08/14/2024 8:42 AM EST Up in day room drinking coffee. States bm yesterday. Generally feels good. Relaxed. States did order breakfast. * Mayte Vazquez RN - 08/13/2024 11:08 PM EST Pt says she plans on going to residential treatment when discharged. She is up and steady. She is Aand O x 4. She denies SI/HI/AVH. She has been compliant with her medications. * Mandeep Woody RN - 08/13/2024 4:21 AM EST Pt is A &O X 4, withdrawn to room. Pt is calm, pleasant and compliant with all meds and care. PRN tylenol given for neck and shoulder pain bilateral per Pt requests. Pt denies withdrawal symptomsduring this shift. Pt is encouraged to seek staff help with any needs. Pt verbalizes understanding. * Angelita Vanessa RN - 08/12/2024 6:29 PM EST Patient admitted for Dehydration [E86.0] Hypokalemia [E87.6] Nausea [R11.0] Alcohol withdrawal syndrome without complication (HCC) [F10.930] Day 1 of admission Affect/Mood Affect/Mood Range: Normal range Affect/Mood Display: Appropriate Mood: Euthymic Thought Content Delusions: No delusions Hallucinations: None Ambivalence: No (Comment) Behavior Eye Contact: Fair Exhibited Behavior: Cooperative Speech Content: Appropriate SI/HI Patient denies SI/HI and contracts for safety Medication/Therapy Patient has been compliant with medications her current medication regiment and denies that she hasany questions or concerns at the time of this interaction. Patient attended group therapy this morning and evening and feels that group therapy has been beneficial. Appetite/Sleep Patient reports her sleep was improved in comparison to previous nights prior to her being admitted. Patient reports that she her appetite is fair this morning. Patient denies N/V or other GI upset or discomfort that would affect her appetite PRN medications this shift Tylenol 650 mg @ 0845 for general upper body ache- Patient report intervention was therapeutic Vital Signs Vitals Value Taken Time BP 111/76 08/12/24 1002 Temp 36.6 C (97.9 F) 08/12/24 1002 Pulse 99 08/12/24 1002 Resp 16 08/12/24 1002 SpO2 Pain CIWA 97 % 10 2 0 08/12/24 1002 08/12/24 0845 08/12/24 1002 08/12/24 1817 * Yoselin Riley RN - 08/12/2024 5:40 AM EST Patient up this morning with a slow steady gait. Patient reports sleeping well last night. Patient up getting coffee/water/reading in the dayroom. * Yoselin Riley RN - 08/11/2024 10:29 PM EST Patient arrived from [facility] to detox from alcohol. Patient very unsteady, sedated, bed alarm on for safety. Patient cooperative and answered most admission questions. Skin check, bruising onleft elbow. Patient reports she obtains her home medication from [facility] in [place]. documented in this [facility]03-11-2025 Hospital Discharge instructions* Discharge Instructions* Elsa Bacon DO - 08/17/2024 9:32 AM EDT Images from the original note were not included. [facility] PROGRAMS __ Addiction Medicine Intensive Outpatient Program [place] ([facility]): [phone] [place]: [phone] [place]: [phone] Behavioral Health Intensive Outpatient Program [place] ([facility]): [phone] [place]: [phone] First Step [place] ([facility] [phone] [place]: [phone] Partial Hospitalization Program [place] ([facility]): [phone] Traumatic Stress Center [facility]): [phone] Vivitrol Clinic [place] ([facility]): [phone] Alcoholics Anonymous Meetings [email or web address] [facility] [address] [place] [address], [address], [place] [address] * Discharge Instr - Other Orders* MARY Mackey - 08/12/2024 8:45 AM EST After detox you should abstain from any use of any mood altering chemical Appointment with your primary care physician should be scheduled It is highly recommended that you attend post hospital treatment Please read the information give to you - Intro to 12 step programs Call the National Suicide Prevention Hotline if needed at: 3-935-052-TALK (8255) Please call the following number should you have questions regarding your discharge or aftercare appointments: 4 [facility] documented in this [facility]03-11-2025 Note* Care Coordination - MARY Mackey - 08/17/2024 9:08 AM EDT MARY saw patient to discuss aftercare plans and treatment post discharge. Patient was reminded about appointments. Patient has pending intake with [facility] today. Patient arranged transportation to have staff from agency come to pick her up from the unit. Patient denied current SI/HI/AVH. Research Associate Molecular Biology from [facility] will come to hospital to greens picker patient from the unit. Patient denied needing anything further from [employer] at the time. MARY informed patient's nurse about conversation. [id number] Note* Care Coordination - MARY Mackey - 08/17/2024 9:08 AM EDT METAL DIE FINISHER saw patient to discuss aftercare plans and treatment post discharge. Patient was reminded about appointments. Patient has pending intake with [facility] today. Patient arranged transportation to have staff from agency come to pick her up from the unit. Patient denied current SI/HI/AVH. Research Associate Molecular Biology from [facility] will come to hospital to greens picker patient from the unit. Patient denied needing anything further from [employer] at the time. MARY informed patient's nurse about conversation. T [id number] Miscellaneous Notes* Care Coordination - MARY Mackey - 08/17/2024 9:08 AM EDT METAL [employer] FINISHER saw patient to discuss aftercare plans and treatment post discharge. Patient was reminded about appointments. Patient has pending intake with [facility] today. Patient arranged transportation to have staff from agency come to pick her up from the unit. Patient denied current SI/HI/AVH. Research Associate Molecular Biology from [facility] will come to hospital to greens picker patient from the unit. Patient denied needing anything further from [facility] at the time. METAL DIE FINISHER informed patient's nurse about conversation. * Care Coordination - MARY Mackey - 08/17/2024 8:52 AM EDT MARY received phone call from [facility]. Reports that transportation is on their way to pickup patient. MARY explained that medical team was not made aware of patient's admission to treatmentas it was still pending medical review at end of day on 08/16/2024. MARY also explained that there is no current discharge order in for patient and that she is not able to be picked up immediately. Intake staff from [facility] will be calling their powder truck driver in order to identify an estimated time of arrival. MARY sent message to Dr. Bacon to let them know about update of patient's plan. [employer] continue to follow as necessary. * Care Plan - Sury Bustillo RN - 08/16/2024 10:09 PM EDT Problem: Safety - Adult Goal: Free from fall injury Outcome: Progressing * Group Note - Sara Leal - 08/16/2024 12:20 PM EDT Department: [facility] Group Topic: Recreation Therapy Group Date: 08/16/2024 Start Time: 1119 End Time: 1158 Facilitators: Sara Leal Number of Participants: 1 Group Name: Recreation Therapy Treatment Modality: Recreation Therapy Purpose: explore healthy outlets Summary: Art - To allow Patients the opportunity to utilize self expression as a healthy outlet, source of relaxation and reflection. In addition, patients are challenged to engage decision making skills and self awareness during the creative process. Name: Felton Pa Date of : 1970 MR: [id number] Appearance: Good eye contact Affect: Appropriate Behavior: Pleasant Alertness: Alert Speech: Appropriate Level/Quality of Participation: engaged Interactions with others: na Interventions utilized were Empathic listening and Expressive therapy Patient's Response to Intervention: Patient engaged fully in art task by choosing their focus and supplies. Patient was active in discussion and reported being able to meet intention of relaxation. Patient reported enjoyment in participation and created an image of her son who passed as an otis. Continue to encourage group participation as appropriate. 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 pectoris Anxiety Alcohol use, unspecified with withdrawal, unspecified (HCC) Greater trochanteric bursitis Bleeding hemorrhoids Chronic back pain Hypomagnesemia Migraine without aura and responsive to treatment Mixed anxiety depressive disorder Steatosis of liver Tobacco dependence Alcohol dependence (HCC) Chronic alcohol use Abnormal mammogram Alcohol withdrawal syndrome with complication (HCC) Muscle pain Low back pain, unspecified Alcohol withdrawal seizure (HCC) Pain in joint involving pelvic region and thigh Other acidosis Alcohol abuse with withdrawal delirium (HCC) Tobacco use Thrombocytopenia (HCC) Encounter for screening for malignant neoplasm of colon Other specified disorders of breast Other disorders of bilirubin metabolism Nausea with vomiting, unspecified Major depressive disorder, single episode, unspecified Hypokalemia Generalized abdominal pain Fever, unspecified Decreased white blood cell count, unspecified Cannabis abuse, uncomplicated Severe alcohol use disorder (HCC) Acute lymphadenitis, unspecified Acute bronchitis, unspecified Transaminitis * Care Coordination - MARY Mackey - 08/16/2024 11:22 AM EDT [facility] progress notes, nursing notes, labs, and information about additional medical needs. [employer]ISH[employer] will fax requested information and continue to follow as necessary. * Care Plan - Gertrude Silva RN - 08/15/2024 6:19 PM EDT Up in day room. Attended meetings. Cooperative with staff. Gait steady. Appetite good. * Group Note - Sara Leal - 08/15/2024 5:16 PM EDT Department: [facility] Group Topic: Recreation Therapy Group Date: 08/15/2024 Start Time: 1613 End Time: 1654 Facilitators: Sara Leal Number of Participants: 2 Group Name: Recreation Therapy Treatment Modality: Recreation Therapy Purpose: regain self-worth Summary: 3 Animals - To allow Patients the opportunity to reconnect with positive qualities within themselves through examining animals they like. Patients will be asked to connect the qualities of animals to how they want to be seen, how they are actually seen and who they really are. Discussion focuses on accuracies, finding humor in inaccuracies and the importance of recognizing the self beyond circumstance. Name: Felton Pa Date of : 1970 MR: [id number] Appearance: Good eye contact Affect: Appropriate Behavior: Pleasant Alertness: Alert Speech: Appropriate Level/Quality of Participation: engaged Interactions with others: supportive Interventions utilized were Building rapport and engagement and Empathic listening Patient's Response to Intervention: Patient engaged in the intervention and discussion. Patient wasable to connect to multiple positive qualities within themselves. Patient voiced understanding of group purpose. Patient reports wanting to reconnect with crafting and spoke of the benefits they get from participation. Patient spoke of the losses of her and son, as well as, the treatment she is going to go to. Support and encouragement offered. Patient encouraged in utilizing recreation to support reconnection to self and others as they work toward wellness. Continue to encourage patient participation in groups. 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 pectoris Anxiety Alcohol use, unspecified with withdrawal, unspecified (HCC) Greater trochanteric bursitis Bleeding hemorrhoids Chronic back pain Hypomagnesemia Migraine without aura and responsive to treatment Mixed anxiety depressive disorder Steatosis of liver Tobacco dependence Alcohol dependence (HCC) Chronic alcohol use Abnormal mammogram Alcohol withdrawal syndrome with complication (HCC) Muscle pain Low back pain, unspecified Alcohol withdrawal seizure (HCC) Pain in joint involving pelvic region and thigh Other acidosis Alcohol abuse with withdrawal delirium (HCC) Tobacco use Thrombocytopenia (HCC) Encounter for screening for malignant neoplasm of colon Other specified disorders of breast Other disorders of bilirubin metabolism Nausea with vomiting, unspecified Major depressive disorder, single episode, unspecified Hypokalemia Generalized abdominal pain Fever, unspecified Decreased white blood cell count, unspecified Cannabis abuse, uncomplicated Severe alcohol use disorder (HCC) Acute lymphadenitis, unspecified Acute bronchitis, unspecified Transaminitis * Care Plan - Gertrude Silva RN - 08/14/2024 6:51 PM EST Up on unit, attended meetings. Cooperative with staff. Appetite good. Gait steady. Social with peers. * Care Coordination - MARY Mackey - 08/14/2024 12:30 PM EST Patient is now interested in residential treatment. During 08/13/2024 patient met with different social sciences department chair who sent application to [facility] for residential treatment. Patient however currently only has Medicare and being able to be in eligible for residential treatment at that agency. Previously show patient had reported that [facility] would be able to accept patient for residential treatment based on current insurance. Patient signed CANDIE referral faxed to agency. 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 * Care Plan - Gertrude Silva RN - 08/13/2024 7:15 PM EST Up and social. Gait steady. Attended meetings. Appetite fair. Cooperative. * Care Coordination - MARY Padilla - 08/13/2024 12:55 PM EST Spoke 180 Janet provided contact and fax number for [facility] vm left. provided fax number spoke to pt release signed records faxed. Support offered to pt. * Care Plan - Mandeep Woody RN - 08/12/2024 8:16 PM EST Problem: Discharge Planning Goal: Discharge to home or other facility with appropriate resources Outcome: Progressing Problem: Sleep Disturbance Goal: Will exhibit normal sleeping pattern Outcome: Progressing * Group Note - Kaylin Frazier - 08/12/2024 4:14 PM EST Department: [facility] Group Topic: Music Therapy Group Date: 08/12/2024 Start Time: 1500 End Time: 1530 Facilitators: Kaylin Frazier Number of Participants: 4 Group Name: Song share Treatment Modality: music therapy Purpose: relapse prevention strategies Summary: Pt was given the opportunity to share a song that has been helpful to them in a difficult time or makes them feel better with the group. Pt was asked to give feedback to peer choices. Discussed how music can be used as a coping skill and for emotional regulation and expression. Name: Felton Pa Date of : 1970 MR: [id number] Mental Status Exam: Appearance: Appropriately dressed and groomed Mood: Euthymic Affect: Full Behavior: Pleasant Alertness: Alert Speech: Appropriate Cognition: Intact Thought Process: Goal-directed Thought Content: No evidence of psychosis/delusions Level/Quality of Participation: active, attentive, and cooperative Interactions with others: gave feedback Interventions utilized were focused music listening and discussion Patient's Response to Intervention: Patient participated appropriately choosing a song and sharing with the group. Pt affect was bright and eye contact was good. Pt provided verbal support to peers and participated in group singing. Progress Towards Goal(s): Moderate Next Step: Continue with current services 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 pectoris Anxiety Alcohol use, unspecified with withdrawal, unspecified (HCC) Greater trochanteric bursitis Bleeding hemorrhoids Chronic back pain Hypomagnesemia Migraine without aura and responsive to treatment Mixed anxiety depressive disorder Steatosis of liver Tobacco dependence Alcohol dependence (HCC) Chronic alcohol use Abnormal mammogram Alcohol withdrawal syndrome with complication (HCC) Muscle pain Low back pain, unspecified Alcohol withdrawal seizure (HCC) Pain in joint involving pelvic region and thigh Other acidosis Alcohol abuse with withdrawal delirium (HCC) Tobacco use Thrombocytopenia (HCC) Encounter for screening for malignant neoplasm of colon Other specified disorders of breast Other disorders of bilirubin metabolism Nausea with vomiting, unspecified Major depressive disorder, single episode, unspecified Hypokalemia Generalized abdominal pain Fever, unspecified Decreased white blood cell count, unspecified Cannabis abuse, uncomplicated Severe alcohol use disorder (HCC) Acute lymphadenitis, unspecified Acute bronchitis, unspecified Transaminitis * Care Coordination - MARY Mackey - 08/12/2024 3:07 PM EST MARY was consulted in order to address patient's identified social determinants of health. Patient was determined to have been identified for: Food Insecurities Patient provided with extensive community's resource sheet for both identified areas. MARY will continue to work with patient and provide resources that will allow for identified community assistance for patient that will address identified social determinates of health. * Care Coordination - MARY Mackey - 08/12/2024 11:05 AM EST MARY able to contact the counseling center for [facility] patient's appointmentthat was scheduled for today. First available appointment was 08/26/2024 at 8 AM. Information including patient's discharge paperwork. [employer] also able to call [facility] program and schedule patient for virtualintake appointment on 08/16/2024 at 1:30 PM. All information will be texted to her through [employer]. METAL DIE FINISHER fax referral information to [facility]. 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 * Care Plan - Angelita Vanessa RN - 08/12/2024 10:48 AM EST Problem: Discharge Planning Goal: Discharge to home or other facility with appropriate resources Outcome: Progressing Problem: Sleep Disturbance Goal: Will exhibit normal sleeping pattern Outcome: Progressing * Care Coordination - MARY Mackey - 08/12/2024 8:14 AM EST Behavioral Health Psycho-Social Assessment (Social Work) Date: 08/12/2024 Patient Name: Felton Pa : 1970 Identifying Information: Patient is a 54-year-old female admitted to [facility] for detox and alcohol. Patient is unknown to addiction medicine team as she has not been previously seen by our services. Presenting Problem: Patient presented to the ED on 08/11/2024 requesting detox from alcohol. Patient also has history of epilepsy and takes Zonegran 100 mg. Did not take it this morning. [facility] did not have Zonegran in-house so Keppra was given to her instead. Patient reports that she is drinking waytoo much alcohol for the last several months. Abruptly stopped 2013 hrs. ago. Endorses shaking andnausea. Denies any seizures. Does have slight tremor in bilateral upper extremities. Psychiatric History: Patient with mental health diagnoses depression and, anxiety, and bipolar disorder. Currently only on Lexapro. Previous history of other medication for mental health needs. Currently receives medication through PCP. Recently connected with counseling center of [facility]. Patient reports past history of psychiatric admissions in both 2005 and 2006. Patient reports that they were both for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 Range SODIUM 136 136 - 145 mmol/L POTASSIUM 3.4 (L) 3.5 - 5.1 mmol/L CHLORIDE 105 98 - 107 mmol/L CARBON DIOXIDE 18 (L) 22 - 29 mmol/L UREA NITROGEN 7 (L) 9 - 23 mg/dL CREATININE 0.75 0.57 - 1.11 mg/dL GLUCOSE 114 (H) 74 - 100 mg/dL CALCIUM 8.9 8.4 - 10.2 mg/dL ANION GAP 13 3 - 13 mmol/L eGFR >90.0 >60.0 mL/min/1.73m*2 Assessment & Plan alcohol use disorder Counseled patient on biopsychosocial consequences of substance use. Encouraged professional chemical dependency treatment. Encouraged 12 step meeting attendance. SW to finalize addiction treatment plan with patient: Patient expressed interest in aftercare and would like to do residential treatment at [address] [place] [address]. She is interested in MAT - naltrexone, with the anticipation of Vivitrol at discharge Naltrexone 50 mg today, Vivitrol Friday Alcohol withdrawal Last use of alcohol was on 08/12/23. ETG positive. Phenobarbital taper to manage alcohol withdrawal symptoms. 16 mg q 4 hours for today. CIWA scores per unit protocol. Folic acid 1 mg daily, thiamine 100 mg TID, gabapentin 300 mg q 8 hours. PRN medications for withdrawal symptom management added. Encouraged to participate in all unit activities. Seizure and fall precautions. Seizure disorder/epilepsy Continue Zonegran 100 mg daily and 200 mg nightly for seizure prevention. Continue Gabapentin 300 mg q 8 hours. Seizure precautions. Hypertension CAD HX of HI Continue Lisinopril 5 mg daily and spironolactone 75 mg daily. Monitor vitals. Depression Anxiety Grief Continue Lexapro 20 mg daily. Patient currently denying any acute safety concerns, including suicidal or homicidal ideation, intent, or plan. No acute psychosis. She is established with [facility], will plan to schedule follow-up. Consider grief support resources. Thrombocytopenia Likely alcohol induced. Improving Elevated liver enzymes Likely alcohol related improving Hypokalemia-improving Hyponatremia-resolved Hypomagnesemia-resolved Disposition: Discharge anticipated in 1-2 days. This is pending: Resolution of withdrawal symptoms. Medical stabilization. Labs/tests/tasks to review: None Hand[employer] Or Hobby [employer] Manager recommendations: none TAMMY Rg CNP Addiction Medicine 08/15/2024 at 11:20 AM Note: Narrative portions of note written using [employer] dictation software. Efforts are made to dictate clearly and proofread but errors in dictation still may occur. Please reach out to author with any clarifying questions. * TAMMY Abad CNP - 08/14/2024 8:38 AM EST Addiction Medicine Progress Note Patient: Felton Pa Chief Complaint Patient presents with Alcohol Problem Problem List: Principal Problem: Alcohol withdrawal syndrome with complication (HCC) Active Problems: Thrombocytopenia (HCC) Severe alcohol use disorder (HCC) Transaminitis Subjective Interim History: Patient was in dayroom, denies symptoms of withdrawal. Overall, withdrawal symptoms are improved. Patient reports ongoing joint pain. No physical complaints voiced. Patient is tolerating meals and fluids. Did not receive PRN medication overnight. Patient has participated in group and interacted with peers. No signs and/or symptoms of withdrawal observed. No overt events overnight documented. Longdiscussion with patient regarding her use, sobriety and aftercare plans. Patient express interest in Naltrexone. Discussed possible side effects with patient. Explained risks, benefits and alternatives. All patient questions answered. She would like to proceed. Objective Review of Systems: All ROS was completed and was negative unless stated above Physical Exam: Vitals: 08/13/24 1010 08/13/24 1652 08/13/24 2232 08/14/24 0527 BP: 108/76 106/69 104/56 103/67 Pulse: 99 86 89 78 Resp: 18 14 18 14 Temp: 36.9 C (98.4 F) 37.1 C (98.8 F) 37.1 C (98.8 F) 36.7 C (98 F) TempSrc: Temporal Temporal Temporal SpO2: 98% 100% 96% 97% Weight: Height: Physical Exam Vitals and nursing note reviewed. Constitutional: Appearance: She is not diaphoretic. Cardiovascular: Rate and Rhythm: Normal rate. Pulmonary: Effort: Pulmonary effort is normal. Abdominal: General: There is no distension. Musculoskeletal: General: Normal range of motion. Skin: General: Skin is dry. Coloration: Skin is not pale. Neurological: Mental Status: She is alert and oriented to person, place, and time. Motor: No tremor. Gait: Gait is intact. Psychiatric: Mood and Affect: Mood normal. Behavior: Behavior normal. Thought Content: Thought content normal. Judgment: Judgment normal. Medications: escitalopram, 20 mg, Oral, Daily folic acid, 1 mg, Oral, Daily gabapentin, 300 mg, Oral, q8h lisinopril, 5 mg, Oral, Daily naltrexone, 25 mg, Oral, Once Followed by [START ON 08/15/2024] naltrexone, 50 mg, Oral, Once PHENobarbital, 32.4 mg, Oral, Q4H Followed by PHENobarbital, 16.2 mg, Oral, Q4H spironolactone, 75 mg, Oral, Daily thiamine, 100 mg, Oral, TID zonisamide, 100 mg, Oral, Daily And zonisamide, 200 mg, Oral, Nightly PRN medications: acetaminophen, aluminum & magnesium hydroxide-simethicone, dicyclomine, hydrOXYzine pamoate, loperamide, LORazepam, ondansetron, senna- docusate sodium Labs: Last 24 hours: Recent Results (from the past 24 hours) CBC auto differential Collection Time: 08/14/24 5:35 AM Result Value Ref Range Auto WBC 4.5 3.6 - 10.7 10*3/uL RBC 3.18 (L) 3.80 - 5.20 10*6/uL Hemoglobin 10.4 (L) 11.7 - 16.0 g/dL Hematocrit 31.7 (L) 35.0 - 47.0 % MCV 99.7 (H) 77.0 - 99.0 fL MCH 32.7 26.0 - 34.0 pg MCHC 32.8 30.5 - 36.0 % RDW 15.1 (H) 11.5 - 15.0 % Platelets 100 (L) 140 - 440 10*3/uL MPV 10.6 9.0 - 12.7 fL nRBC 0.0 0.0 - 2.0 /100 WBCs Neutrophils Relative 60.2 38.0 - 82.0 % Lymphocytes Relative 28.3 15.0 - 45.0 % Monocytes Relative 8.9 5.0 - 13.0 % Eosinophils Relative 2.0 0.0 - 6.0 % Basophils Relative 0.4 0.0 - 2.0 % Immature Grans % 0.2 0.0 - 2.0 % Neutrophils Absolute 2.7 1.8 - 7.5 10*3/uL Lymphocytes Absolute 1.3 1.0 - 4.3 10*3/uL Monocytes Absolute 0.4 0.0 - 0.9 10*3/uL Eosinophils Absolute 0.1 0.0 - 0.5 10*3/uL Basophils Absolute 0.0 0.0 - 0.2 10*3/uL Immature Grans Absolute 0.0 <0.1 10*3/uL Comprehensive metabolic panel Collection Time: 08/14/24 5:35 AM Result Value Ref Range SODIUM 131 (L) 136 - 145 mmol/L POTASSIUM 3.4 (L) 3.5 - 5.1 mmol/L CHLORIDE 106 98 - 107 mmol/L CARBON DIOXIDE 18 (L) 22 - 29 mmol/L ANION GAP 7 3 - 13 mmol/L UREA NITROGEN 11 9 - 23 mg/dL CREATININE 0.75 0.57 - 1.11 mg/dL GLUCOSE 118 (H) 74 - 100 mg/dL CALCIUM 8.3 (L) 8.4 - 10.2 mg/dL AST (SGOT) 44 (H) <34 U/L ALT 23 <30 U/L ALKALINE PHOSPHATASE 79 40 - 150 U/L ALBUMIN 3.3 (L) 3.5 - 5.0 g/dL BILIRUBIN, TOTAL 0.8 <1.2 mg/dL TOTAL PROTEIN 6.7 6.4 - 8.3 g/dL eGFR >90.0 >60.0 mL/min/1.73m*2 Magnesium Collection Time: 08/14/24 5:35 AM Result Value Ref Range MAGNESIUM 1.6 1.6 - 2.6 mg/dL Assessment & Plan alcohol use disorder Counseled patient on biopsychosocial consequences of substance use. Encouraged professional chemical dependency treatment. Encouraged 12 step meeting attendance. SW to finalize addiction treatment plan with patient: Patient expressed interest in aftercare and would like to do residential treatment at [address] [place] [address]. She is interested in MAT - naltrexone, with the anticipation of Vivitrol at discharge Naltrexone 25 mg today Alcohol withdrawal Last use of alcohol was on 08/12/23. ETG positive. Phenobarbital taper to manage alcohol withdrawal symptoms. 32 mg q 4 hours for today. CIWA scores per unit protocol. Folic acid 1 mg daily, thiamine 100 mg TID, gabapentin 300 mg q 8 hours. PRN medications for withdrawal symptom management added. Encouraged to participate in all unit activities. Seizure and fall precautions. Seizure disorder/epilepsy Continue Zonegran 100 mg daily and 200 mg nightly for seizure prevention. Continue Gabapentin 300 mg q 8 hours. Seizure precautions. Hypertension CAD HX of HI Continue Lisinopril 5 mg daily and spironolactone 75 mg daily. Monitor vitals. Depression Anxiety Grief Continue Lexapro 20 mg daily. Patient currently denying any acute safety concerns, including suicidal or homicidal ideation, intent, or plan. No acute psychosis. She is established with [facility], will plan to schedule follow-up. Consider grief support resources. Thrombocytopenia Likely alcohol induced. Improving Elevated liver enzymes Likely alcohol related improving Hypokalemia Hyponatremia Hypomagnesemia Alcohol related electrolyte disturbances. K was 3.4 today. Na 131 today. Mg 1.6 Repeat BMP tomorrow morning. Disposition: Discharge anticipated in 2-4 days. This is pending: Resolution of withdrawal symptoms. Medical stabilization. 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 Efforts are made to dictate clearly and proofread but errors in dictation still may occur. Please reach out to author with any clarifying questions. * Elsa Bacon DO - 08/13/2024 9:10 AM EST Images from the original note were not included. ADDICTION MEDICINE PROGRESS NOTE Patient: Felton Pa __ Problem List: Principal Problem: Alcohol withdrawal syndrome with complication (HCC) Active Problems: Thrombocytopenia (HCC) Severe alcohol use disorder (HCC) Transaminitis SUBJECTIVE Chief Complaint Patient presents with Alcohol Problem Last 4 CIWA scores per RN assessments 0 - 0 - 0 - 2 Interim History The patient reports she is doing well today. She continues to deny symptoms of withdrawal, including abdominal pain, nausea, vomiting, tremors, diaphoresis, increased anxiety, muscle weakness/cramping. She slept well night but feels tired this morning after consuming a large breakfast. She has beeneating well. She expresses concern about constipation for the past 2-3 days. She denies SI/HI/AVH. She denies overwhelming depression or anxiety but admits to continued grief and sadness. After further consideration, she would like to attend residential after discharge from detox. She would also like to start MAT. Review of Systems Review of Systems Constitutional: Negative for chills, decreased appetite, diaphoresis, fever and malaise/fatigue. HENT: Negative for congestion. Cardiovascular: Negative for chest pain. Respiratory: Negative for shortness of breath. Musculoskeletal: Positive for back pain and joint pain. Gastrointestinal: Positive for constipation. Negative for abdominal pain, nausea and vomiting. Neurological: Negative for tremors. Psychiatric/Behavioral: Negative for hallucinations, suicidal ideas and thoughts of violence. The patient does not have insomnia. OBJECTIVE Vitals Vitals: 08/12/24 2204 08/12/24 2318 08/13/24 0617 08/13/24 1010 BP: 91/60 91/55 97/66 108/76 BP Location: Patient Position: Pulse: 93 68 75 99 Resp: 18 18 18 Temp: 36.1 C (97 F) 36.4 C (97.5 F) 36.7 C (98 F) TempSrc: Temporal Temporal Temporal SpO2: 95% 98% 97% Weight: Height: Physical Exam Vitals and nursing note reviewed. Constitutional: General: She is not in acute distress. Appearance: Normal appearance. She is not ill-appearing, toxic-appearing or diaphoretic. HENT: Head: Normocephalic and atraumatic. Nose: Nose normal. No congestion or rhinorrhea. Mouth/Throat: Mouth: Mucous membranes are moist. Pharynx: Oropharynx is clear. Eyes: Conjunctiva/sclera: Conjunctivae normal. Cardiovascular: Rate and Rhythm: Normal rate. Pulmonary: Effort: Pulmonary effort is normal. Musculoskeletal: General: Normal range of motion. Skin: General: Skin is warm. Neurological: Mental Status: She is alert and oriented to person, place, and time. Motor: No tremor. Psychiatric: Attention and Perception: Attention and perception normal. Mood and Affect: Mood and affect normal. Speech: Speech normal. Behavior: Behavior normal. Behavior is cooperative. Thought Content: Thought content normal. Thought content does not include homicidal or suicidal ideation. Cognition and Memory: Cognition and memory normal. Judgment: Judgment normal. Medications Home Meds Current Outpatient Medications Medication Instructions escitalopram (LEXAPRO) 20 mg, Oral, Daily flurbiprofen (ANSAID) 100 mg, Oral, 3 times daily PRN lisinopril 5 MG tablet Oral, Daily spironolactone (ALDACTONE) 75 mg, Oral, Daily zonisamide (ZONEGRAN) 100 mg, Oral, 1 in morning and 2 at night Scheduled Inpatient Meds escitalopram, 20 mg, Oral, Daily folic acid, 1 mg, Oral, Daily gabapentin, 300 mg, Oral, q8h lisinopril, 5 mg, Oral, Daily magnesium sulfate, 2,000 mg, IntraVENous, Once PHENobarbital, 64.8 mg, Oral, Q4H Followed by PHENobarbital, 32.4 mg, Oral, Q4H Followed by [START ON 08/14/2024] PHENobarbital, 16.2 mg, Oral, Q4H spironolactone, 75 mg, Oral, Daily thiamine, 100 mg, Oral, TID zonisamide, 100 mg, Oral, Daily And zonisamide, 200 mg, Oral, Nightly PRN Inpatient Meds PRN medications: acetaminophen, aluminum & magnesium hydroxide-simethicone, dicyclomine, hydrOXYzine pamoate, loperamide, LORazepam, ondansetron, senna- docusate sodium Continuous Inpatient Infusions Recent Imaging ECG 12 lead Result Date: 08/11/2024 EKG shows NSR with PACs. Normal axis, normal OK QRS and prolonged QTC intervals. No STEMI, no SVT, no LVH. No old EKG. Electronically Signed On 08-11-2024 14:30:03 EST by John Rolle Labs CBC: Recent Labs 08/11/24 1418 08/13/24 0719 WBC 4.4 4.0 HGB 12.4 10.4* PLT 102* 94* MCV 96.8 96.5 RDW 15.2* 15.2* BMP: Recent Labs 08/11/24 1418 08/13/24 0719 NA 135* 133* K 3.3* 3.0* CL 104 104 CO2 18* 19* BUN 5* 12 CREATININE 0.66 0.74 CALCIUM 9.4 8.5 MG -- 1.3* Liver Profile: Recent Labs 08/11/24 14108/13/24 0719 AST 70* 43* ALT 30* 20 BILITOT 1.9* 0.9 ALKPHOS 110 82 PROT 8.4* 6.0* LIPASE 9 -- Glucose: Recent Labs 08/11/24 1418 08/13/24 0719 GLUCOSE 190* 87 Lactic Acid: No lab exists for component: LACTA Cardiac Injury Profile: No results for input(s): CKTOTAL, CKMB, TROPONINI in the last 72 hours. Last 24 Hours: Recent Results (from the past 24 hours) CBC auto differential Collection Time: 08/13/24 7:19 AM Result Value Ref Range Auto WBC 4.0 3.6 - 10.7 10*3/uL RBC 3.17 (L) 3.80 - 5.20 10*6/uL Hemoglobin 10.4 (L) 11.7 - 16.0 g/dL Hematocrit 30.6 (L) 35.0 - 47.0 % MCV 96.5 77.0 - 99.0 fL MCH 32.8 26.0 - 34.0 pg MCHC 34.0 30.5 - 36.0 % RDW 15.2 (H) 11.5 - 15.0 % Platelets 94 (L) 140 - 440 10*3/uL MPV 10.8 9.0 - 12.7 fL nRBC 0.0 0.0 - 2.0 /100 WBCs Neutrophils Relative 46.7 38.0 - 82.0 % Lymphocytes Relative 41.4 15.0 - 45.0 % Monocytes Relative 9.2 5.0 - 13.0 % Eosinophils Relative 1.5 0.0 - 6.0 % Basophils Relative 0.7 0.0 - 2.0 % Immature Grans % 0.5 0.0 - 2.0 % Neutrophils Absolute 1.9 1.8 - 7.5 10*3/uL Lymphocytes Absolute 1.7 1.0 - 4.3 10*3/uL Monocytes Absolute 0.4 0.0 - 0.9 10*3/uL Eosinophils Absolute 0.1 0.0 - 0.5 10*3/uL Basophils Absolute 0.0 0.0 - 0.2 10*3/uL Immature Grans Absolute 0.0 <0.1 10*3/uL IPF 5 Comprehensive metabolic panel Collection Time: 08/13/24 7:19 AM Result Value Ref Range SODIUM 133 (L) 136 - 145 mmol/L POTASSIUM 3.0 (L) 3.5 - 5.1 mmol/L CHLORIDE 104 98 - 107 mmol/L CARBON DIOXIDE 19 (L) 22 - 29 mmol/L ANION GAP 10 3 - 13 mmol/L UREA NITROGEN 12 9 - 23 mg/dL CREATININE 0.74 0.57 - 1.11 mg/dL GLUCOSE 87 74 - 100 mg/dL CALCIUM 8.5 8.4 - 10.2 mg/dL AST (SGOT) 43 (H) <34 U/L ALT 20 <30 U/L ALKALINE PHOSPHATASE 82 40 - 150 U/L ALBUMIN 3.1 (L) 3.5 - 5.0 g/dL BILIRUBIN, TOTAL 0.9 <1.2 mg/dL TOTAL PROTEIN 6.0 (L) 6.4 - 8.3 g/dL eGFR >90.0 >60.0 mL/min/1.73m*2 Magnesium Collection Time: 08/13/24 7:19 AM Result Value Ref Range MAGNESIUM 1.3 (L) 1.6 - 2.6 mg/dL ASSESSMENT & PLAN Alcohol use disorder, severe Counseled patient on biopsychosocial consequences of substance use. Encouraged professional chemical dependency treatment. Encouraged 12 step meeting attendance. Follow up plans for addiction management discussed with patient: Patient expressed interest in aftercare and would like to do residential at [facility]. She is interested in MAT - options discussed. Alcohol withdrawal Last use of alcohol was on 08/12/23. ETG positive. Phenobarbital taper to manage alcohol withdrawal symptoms. 64.8 mg q 4 hours for today. CIWA scores per unit protocol. Folic acid 1 mg daily, thiamine 100 mg TID, gabapentin 300 mg q 8 hours. PRN medications for withdrawal symptom management added. Encouraged to participate in all unit activities. Seizure and fall precautions. Seizure disorder/epilepsy Continue Zonegran 100 mg daily and 200 mg nightly for seizure prevention. Continue Gabapentin 300 mg q 8 hours. Seizure precautions. Hypertension CAD HX of HI Continue Lisinopril 5 mg daily and spironolactone 75 mg daily. Monitor vitals. Depression Anxiety Grief Continue Lexapro 20 mg daily. Patient currently denying any acute safety concerns, including suicidal or homicidal ideation, intent, or plan. No acute psychosis. She is established with [facility], will plan to schedule follow-up. Consider grief support resources. Thrombocytopenia Likely alcohol induced. Platelets decreased to 94 today. Hgb 10.4. Repeat CBC tomorrow morning. Elevated liver enzymes AST 43, ALT 20 today. Repeat CMP tomorrow morning. Hypokalemia Hyponatremia Hypomagnesemia Alcohol related electrolyte disturbances. K was 3.3 and is 3.0 today. Na 133 today. Mg 1.3. Repleted K in ED. Will give potassium chloride 40 mEq today. Ordered magnesium sulfate IV 2 g. Repeat CMP tomorrow morning. Constipation PRN Senokot. Encouraged movement. Disposition: Discharge anticipated in 2-4 days. This is pending: Resolution of withdrawal symptoms. Medical stabilization. Labs/tests/tasks to review: CMP and CBC w/diff tomorrow morning. Consultants to coordinate care with: N/A. Will follow. Cosigned by Yuriy Lopez MD at 08/13/2024 1:36 PM EST Associated attestation - Yuriy Lopez MD - 08/13/2024 1:36 PM EST I saw and evaluated the patient, participating in the mendez portions of the service. We reviewed the patient's medical record and test results. I personally spent a total 35 minutes in counseling and discussion with the patient and coordination of care. This included a face to face evaluation and physical examination, and documenting clinical information on the day of visit. I have reviewed the resident's note. I agree with the resident s findings and plan, with any additions or corrections listed below. * Soniya Salazar - 08/13/2024 7:36 AM EST Nutrition rescreen completed. Patient assigned a level 1. * Danyelle Christina RRT - 08/12/2024 9:20 AM EST Patient declined smoking cessation counseling. She is accepting of handouts with contact information for future reference. documented in this [facility]03-10-2025 Nurse Note* Jing Womack RN - 08/16/2024 11:16 AM EDT Patient received awake in lounge at shift change and already ate breakfast at shift change, and allsafety measures in place. Patient wears eye glasses and took shower. Patient eating and drinking well,and compliant with all medications Q-shift. Patient. Received call from [facility] at 1400. Patienthas been excepted. [facility] will P/U patient late AM, Early PM- 08/18/23. Patient has already received Vivitrol Injection today at 1100. Patient denies S.I.,H.I.,AH/VH/TH Q- Shift. Continue to monitor patient. Patient received PO PRN Tylenol as per orders at 1110 for back pain. [id number] Discharge summary Author Ryder Portillo [facility] Note Date/Time August 15, 2024 10:1 0pm [facility] Department [address] [place] [address] Emergency Department Summary 08/15/24 MR#: [id number] Acct: [id number] Name: FELTON PA Rep #:[id number] : 1970 54 From: Ryder Herbert PCP: Dr. Callie Nichols MD Status:D IS IN Location: [address] History of Present Illness Chief Complaint: Substance Abuse [facility] Medical History Grief reaction Alcoholic liver disease Cannabis abuse Tobacco abuse Chronic alcohol abuse GERD (gastroesophageal reflux disease) Pancreatitis Elevated troponin Alcohol abuse Health care maintenance Trochanteric bursitis, right hip Chronic back pain Breast cancer screening Pain in joint involving right pelvic region and thigh Migraine without aura and without status migrainosus, not intractable Wears glasses Cancer Bipolar disorder Depression Anxiety Alcohol use Marijuana use Low iron Easy bruising Injury of back Injury of head and neck Loss of consciousness Syncope Seizures Smoker Leg cramps Cardiology follow-up encounter Hypertension Multiple joint pain Seizure disorder Heart valve disease Potassium (K) deficiency Vision problem History of pancreatitis Carpal tunnel syndrome Back problem Arthritis Anemia Seasonal allergies AA (alcohol abuse) UTERINE ABLATION Attempted suicide Difficulty balancing Seizures Diarrhea Hypertension Home Medications ?Medication ?Instructions ?Recorded ?Last Taken ?Type escitalopram oxalate 20 mg tablet 20 mg [facility]20[facility]23 07/27/24 Rx tabs lisinopril 5 mg tablet 5 mg PO DAILY blood pressure #30 01/06/24 07/26/24 Rx tabs flurbiprofen 100 mg tablet 100 mg PO TID PRN pain #270 tabs 01/29/24 Unknown Rx trazodone 50 mg tablet 50 mg PO QHS PRN insomnia #1 0 tabs 06/28/24 Unknown Rx omeprazole 40 mg capsule,delayed 40 mg PO QDAY reflux #90 caps 07/12/24 07/26/24 Rx release zonisamide 100 mg capsule 100 mg .Route .COMPLEX EPILE PSY 07/13/24 Unknown Rx #90 caps folic acid 1 mg tablet 1 mg PO DAILY supplement 30 days 07/30/24 Unknown Rx #30 tabs nicotine 21 mg/24 hr daily 21 mg transdermal DAILY 28 days 07/30/24 Unknown Rx transdermal patch #28 ea spironolactone 50 mg tablet 100 mg (2 x 50 mg) PO JOHN YCM 30 07/30/24 Unknown Rx days #60 tabs thiamine HCl (vitamin B1) 100 mg 100 mg PO DAILYCM 30 days #30 tabs 07/30/24 Unknown Rx tablet Allergy/AdvReac Type Severity Reaction Status Date / Time Penicillins Allergy Other Verified 07/27/24 18:06 bupropion HCl (From AdvReac Depression Verified 07/27/24 18:06 Wellbutrin) Family History Aunt Breast cancer Thyroid disorder Father Cancer Grandfather Cancer Mother Diabetes Hypertension Grandmother Myocardial infarction Heart disease Hypertension Cancer Hypercholesterolemia Other Cerebral aneurysm Surgical History Tubal ligation status History of endometrial ablation History of tubal ligation S/P skin cancer resection H/O heart artery stent bladder sling History of heart surgery Social History Smoking Status: Current every day smoker tobacco type: cigarettes Tobacco: How many years used: 26 Electronic Cigarette Use: not used second hand exposure: Yes alcohol intake: current alcohol intake frequency: 3 or more drinks per day Alcohol type: beer, wine and other details: Recent heavy hard liquor intake, prior intermittent beer intake, 1- 3/time. substance use type: former substance user and marijuana what type of physical activity do you participate in: walking, bicycling and other details: LEG LIFTS frequency: daily sharon/uatsdin: None seatbelt use: always MDM MDM MDM Narrative Medical decision making narrative: please see note from 08/02/23 Radiography Diagnostic Testing: Clinical Impression(s) from Imaging Studies Brain CT 07/27/24 18:52 IMPRESSION: No CT evidence of acute intracranial pathology. Reading Location: [facility] Discharge Plan Disposition Disposition: Acute Care Hospital [facility] Discharge Date/Time: 07/27/24 22:11 What to do if you have Problems For any increased pain, shortness of breath, bleeding, nausea or vomiting, chestpain, or any unexpected problems, contact your Primary Care Provider. Call [facility] ([phone]) or report to the closest Emergency Room. Call 911 if necessary. 08/15/242209 <Electronically signed by Ryder Portillo DO> Cosigner Signature (if applicable): CC: Dr. Callie Nichols MD ~ Signed [facility] Work Phone: [phone] 257-954303-09-2025 Nurse Note* Nicolasa Loaiza - 08/15/2024 8:20 PM EDT Patient alert and oriented, med compliant, denies SI/HI/AVH, N/V/D. Patient complaint of constipation, given PRN Senokot. Patient is laying in bed reading with no other complaints at this time. Call light is within reach, encouraged to notify staff of any change in condition. Will continue to monitor for safety. Cosigned by Lauren Mercado RN at 08/16/2024 2:59 AM EDT [facility] [id number] Plan of care note* Care Plan - Gertrude Silva RN - 08/15/2024 6:19 PM EDT Up in day room. Attended meetings. Cooperative with staff. Gait steady. Appetite good. [facility] [id number] Group counseling note* Group Note - Sara Leal - 08/15/2024 5:16 PM EDT Department: [employer] ACTIVITIES THERAPY Group Topic: Recreation Therapy Group Date: 08/15/2024 Start Time: 1614 End Time: 1655 Facilitators: Sara Leal Number of Participants: 2 Group Name: Recreation Therapy Treatment Modality: Recreation Therapy Purpose: regain self-worth Summary: 3 Animals - To allow Patients the opportunity to reconnect with positive qualities within themselves through examining animals they like. Patients will be asked to connect the qualities of animals to how they want to be seen, how they are actually seen and who they really are. Discussion focuses on accuracies, finding humor in inaccuracies and the importance of recognizing the self beyond circumstance. Name: Felton Pa Date of : 1970 MR: [id number] Appearance: Good eye contact Affect: Appropriate Behavior: Pleasant Alertness: Alert Speech: Appropriate Level/Quality of Participation: engaged Interactions with others: supportive Interventions utilized were Building rapport and engagement and Empathic listening Patient's Response to Intervention: Patient engaged in the intervention and discussion. Patient wasable to connect to multiple positive qualities within themselves. Patient voiced understanding of group purpose. Patient reports wanting to reconnect with crafting and spoke of the benefits they get from participation. Patient spoke of the losses of her and son, as well as, the treatment she is going to go to. Support and encouragement offered. Patient encouraged in utilizing recreation to support reconnection to self and others as they work toward wellness. Continue to encourage patient participation in groups. 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 pectoris Anxiety Alcohol use, unspecified with withdrawal, unspecified (HCC) Greater trochanteric bursitis Bleeding hemorrhoids Chronic back pain Hypomagnesemia Migraine without aura and responsive to treatment Mixed anxiety depressive disorder Steatosis of liver Tobacco dependence Alcohol dependence (HCC) Chronic alcohol use Abnormal mammogram Alcohol withdrawal syndrome with complication (HCC) Muscle pain Low back pain, unspecified Alcohol withdrawal seizure (HCC) Pain in joint involving pelvic region and thigh Other acidosis Alcohol abuse with withdrawal delirium (HCC) Tobacco use Thrombocytopenia (HCC) Encounter for screening for malignant neoplasm of colon Other specified disorders of breast Other disorders of bilirubin metabolism Nausea with vomiting, unspecified Major depressive disorder, single episode, unspecified Hypokalemia Generalized abdominal pain Fever, unspecified Decreased white blood cell count, unspecified Cannabis abuse, uncomplicated Severe alcohol use disorder (HCC) Acute lymphadenitis, unspecified Acute bronchitis, unspecified Transaminitis [id number] NoteAddiction Medicine Progress Note Patient: Felton Pa Chief Complaint Patient presents with Alcohol Problem Problem List: Principal Problem: Alcohol withdrawal syndrome with complication (HCC) Active Problems: Thrombocytopenia (HCC) Severe alcohol use disorder (HCC) Transaminitis Subjective Interim History: Patient was ambulating martínez, denies symptoms of withdrawal. Overall, withdrawal symptoms are improved. Patient reports fatigue. No physical complaints voiced. Patient is tolerating meals and fluids. Did not receive PRN medication overnight. Patient has participated in group and interacted with peers. No signs and/or symptoms of withdrawal observed. No overt events overnight documented. Objective Review of Systems: All ROS was completed and was negative unless stated above Physical Exam: Vitals: 08/14/24 1204 08/14/24 1626 08/14/24 2136 08/15/24 0604 BP: 119/75 101/60 122/79 127/80 Pulse: 81 90 83 86 Resp: 14 14 17 14 Temp: 36.9 ?C (98.5 ?F) 36.8 ?C (98.2 ?F) 37.2 ?C (98.9 ?F) 36.7 ?C (98 ?F) TempSrc: Temporal Temporal Temporal Temporal SpO2: 100% 97% 97% 96% Weight: Height: Physical Exam Vitals and nursing note reviewed. Constitutional: Appearance: She is not diaphoretic. Cardiovascular: Rate and Rhythm: Normal rate. Pulmonary: Effort: Pulmonary effort is normal. Abdominal: General: There is no distension. Musculoskeletal: General: Normal range of motion. Skin: General: Skin is dry. Coloration: Skin is not pale. Neurological: Mental Status: She is alert and oriented to person, place, and time. Motor: No tremor. Gait: Gait is intact. Psychiatric: Mood and Affect: Mood normal. Behavior: Behavior normal. Thought Content: Thought content normal. Judgment: Judgment normal. Medications: escitalopram, 20 mg, Oral, Daily folic acid, 1 mg, Oral, Daily gabapentin, 300 mg, Oral, q8h lisinopril, 5 mg, Oral, Daily [START ON 08/16/2024] naltrexone ER, 380 mg, IntraMUSCular, Once PHENobarbital, 16.2 mg, Oral, Q4H spironolactone, 75 mg, Oral, Daily thiamine, 100 mg, Oral, TID zonisamide, 100 mg, Oral, Daily And zonisamide, 200 mg, Oral, Nightly PRN medications: acetaminophen, aluminum & magnesium hydroxide-simethicone, dicyclomine, hydrOXYzine pamoate, loperamide, LORazepam, ondansetron, senna-docusate sodium Labs: Last 24 hours: Recent Results (from the past 24 hours) Basic metabolic panel Collection Time: 08/15/24 4:15 AM Result Value Ref Range SODIUM 136 136 - 145 mmol/L POTASSIUM 3.4 (L) 3.5 - 5.1 mmol/L CHLORIDE 105 98 - 107 mmol/L CARBON DIOXIDE 18 (L) 22 - 29 mmol/L UREA NITROGEN 7 (L) 9 - 23 mg/dL CREATININE 0.75 0.57 - 1.11 mg/dL GLUCOSE 114 (H) 74 - 100 mg/dL CALCIUM 8.9 8.4 - 10.2 mg/dL ANION GAP 13 3 - 13 mmol/L eGFR >90.0 >60.0 mL/min/1.73m*2 Assessment & Plan alcohol use disorder Counseled patient on biopsychosocial consequences of substance use. Encouraged professional chemical dependency treatment. Encouraged 12 step meeting attendance. SW to finalize addiction treatment plan with patient: Patient expressed interest in aftercare and would like to do residential treatment at [address] [place] [address]. She is interested in MAT - naltrexone, with the anticipation of Vivitrol at discharge Naltrexone 50 mg today, Vivitrol Friday Alcohol withdrawal Last use of alcohol was on 08/12/23. ETG positive. Phenobarbital taper to manage alcohol withdrawal symptoms. 16 mg q 4 hours for today. CIWA scores per unit protocol. Folic acid 1 mg daily, thiamine 100 mg TID, gabapentin 300 mg q 8 hours. PRN medications for withdrawal symptom management added. Encouraged to participate in all unit activities. Seizure and fall precautions. Seizure disorder/epilepsy Continue Zonegran 100 mg daily and 200 mg nightly for seizure prevention. Continue Gabapentin 300 mg q 8 hours. Seizure precautions. Hypertension CAD HX of HI Continue Lisinopril 5 mg daily and spironolactone 75 mg daily. Monitor vitals. Depression Anxiety Grief Continue Lexapro 20 mg daily. Patient currently denying any acute safety concerns, including suicidal or homicidal ideation, intent, or plan. No acute psychosis. She is established with [facility], will plan to schedule follow-up. Consider grief support resources. Thrombocytopenia Likely alcohol induced. Improving Elevated liver enzymes Likely alcohol related improving Hypokalemia-improving Hyponatremia-resolved Hypomagnesemia-resolved Disposition: Discharge anticipated in 1-2 days. This is pending: Resolution of withdrawal symptoms. Medical stabilization. Labs/tests/tasks to review: None Handicraft Or Hobby Shop Manager recommendations: none Chris Holland, TAMMY - BOOKKEEPING TEACHER Addiction Medicine 08/15/2024 at 11:20 AM Note: Narrative portions of note written using [employer] dictation software. Efforts are made to dictate clearly and proofrea (more content not included)... [facility]03-08-2025 Nurse Note* Mayte Vazquez RN - 08/14/2024 10:43 PM EST Pt has been napping on and off this evening, she wakes up and reads her book then goes back to sleep. She is up and steady. She is A and O x 4. She denies SI/HI/AVH. She reports her appetite has beenfair today. She has been compliant with her medications. [id number] Plan of care note* Care Plan - Gertrude Silva RN - 08/14/2024 6:51 PM EST Up on unit, attended meetings. Cooperative with staff. Appetite good. Gait steady. Social with peers. [id number] Note* Care Coordination - MARY Mackey - 08/14/2024 12:30 PM EST Patient is now interested in residential treatment. During 08/13/2024 patient met with different social sciences department chair who sent application to [facility] for residential treatment. Patient however currently only has Medicare and being able to be in eligible for residential treatment at that agency. Previously show patient had reported that [facility] would be able to accept patient for residential treatment based on current insurance. Patient signed CANDIE referral faxed to agency. MARY rodriguez to follow-up as necessary. [facility] [id number] Note* Care Coordination - MARY Mackey - 08/14/2024 12:30 PM EST Patient is now interested in residential treatment. During 08/13/2024 patient met with different social sciences department chair who sent application to [facility] for residential treatment. Patient however currently only has Medicare and being able to be in eligible for residential treatment at that agency. Previously show patient had reported that [facility] would be able to accept patient for residential treatment based on current insurance. Patient signed CANDIE referral faxed to agency. 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 [facility] [id number] Nurse Note* Gertrude Silva RN - 08/14/2024 8:42 AM EST Up in day room drinking coffee. States bm yesterday. Generally feels good. Relaxed. States did order breakfast. [facility] [id number] NoteAddiction Medicine Progress Note Patient: Felton Pa Chief Complaint Patient presents with Alcohol Problem Problem List: Principal Problem: Alcohol withdrawal syndrome with complication (HCC) Active Problems: Thrombocytopenia (HCC) Severe alcohol use disorder (HCC) Transaminitis Subjective Interim History: Patient was in dayroom, denies symptoms of withdrawal. Overall, withdrawal symptoms are improved. Patient reports ongoing joint pain. No physical complaints voiced. Patient is tolerating meals and fluids. Did not receive PRN medication overnight. Patient has participated in group and interacted with peers. No signs and/or symptoms of withdrawal observed. No overt events overnight documented. Long discussion with patient regarding her use, sobriety and aftercare plans. Patient express interest in Naltrexone. Discussed possible side effects with patient. Explained risks, benefits and alternatives. All patient questions answered. She would like to proceed. Objective Review of Systems: All ROS was completed and was negative unless stated above Physical Exam: Vitals: 08/13/24 1010 08/13/24 1652 08/13/24 2232 08/14/24 0527 BP: 108/76 106/69 104/56 103/67 Pulse: 99 86 89 78 Resp: 18 14 18 14 Temp: 36.9 ?C (98.4 ?F) 37.1 ?C (98.8 ?F) 37.1 ?C (98.8 ?F) 36.7 ?C (98 ?F) TempSrc: Temporal Temporal Temporal SpO2: 98% 100% 96% 97% Weight: Height: Physical Exam Vitals and nursing note reviewed. Constitutional: Appearance: She is not diaphoretic. Cardiovascular: Rate and Rhythm: Normal rate. Pulmonary: Effort: Pulmonary effort is normal. Abdominal: General: There is no distension. Musculoskeletal: General: Normal range of motion. Skin: General: Skin is dry. Coloration: Skin is not pale. Neurological: Mental Status: She is alert and oriented to person, place, and time. Motor: No tremor. Gait: Gait is intact. Psychiatric: Mood and Affect: Mood normal. Behavior: Behavior normal. Thought Content: Thought content normal. Judgment: Judgment normal. Medications: escitalopram, 20 mg, Oral, Daily folic acid, 1 mg, Oral, Daily gabapentin, 300 mg, Oral, q8h lisinopril, 5 mg, Oral, Daily naltrexone, 25 mg, Oral, Once Followed by [START ON 08/15/2024] naltrexone, 50 mg, Oral, Once PHENobarbital, 32.4 mg, Oral, Q4H Followed by PHENobarbital, 16.2 mg, Oral, Q4H spironolactone, 75 mg, Oral, Daily thiamine, 100 mg, Oral, TID zonisamide, 100 mg, Oral, Daily And zonisamide, 200 mg, Oral, Nightly PRN medications: acetaminophen, aluminum & magnesium hydroxide-simethicone, dicyclomine, hydrOXYzine pamoate, loperamide, LORazepam, ondansetron, senna-docusate sodium Labs: Last 24 hours: Recent Results (from the past 24 hours) CBC auto differential Collection Time: 08/14/24 5:35 AM Result Value Ref Range Auto WBC 4.5 3.6 - 10.7 10*3/uL RBC 3.18 (L) 3.80 - 5.20 10*6/uL Hemoglobin 10.4 (L) 11.7 - 16.0 g/dL Hematocrit 31.7 (L) 35.0 - 47.0 % MCV 99.7 (H) 77.0 - 99.0 fL MCH 32.7 26.0 - 34.0 pg MCHC 32.8 30.5 - 36.0 % RDW 15.1 (H) 11.5 - 15.0 % Platelets 100 (L) 140 - 440 10*3/uL MPV 10.6 9.0 - 12.7 fL nRBC 0.0 0.0 - 2.0 /100 WBCs Neutrophils Relative 60.2 38.0 - 82.0 % Lymphocytes Relative 28.3 15.0 - 45.0 % Monocytes Relative 8.9 5.0 - 13.0 % Eosinophils Relative 2.0 0.0 - 6.0 % Basophils Relative 0.4 0.0 - 2.0 % Immature Grans % 0.2 0.0 - 2.0 % Neutrophils Absolute 2.7 1.8 - 7.5 10*3/uL Lymphocytes Absolute 1.3 1.0 - 4.3 10*3/uL Monocytes Absolute 0.4 0.0 - 0.9 10*3/uL Eosinophils Absolute 0.1 0.0 - 0.5 10*3/uL Basophils Absolute 0.0 0.0 - 0.2 10*3/uL Immature Grans Absolute 0.0 <0.1 10*3/uL Comprehensive metabolic panel Collection Time: 08/14/24 5:35 AM Result Value Ref Range SODIUM 131 (L) 136 - 145 mmol/L POTASSIUM 3.4 (L) 3.5 - 5.1 mmol/L CHLORIDE 106 98 - 107 mmol/L CARBON DIOXIDE 18 (L) 22 - 29 mmol/L ANION GAP 7 3 - 13 mmol/L UREA NITROGEN 11 9 - 23 mg/dL CREATININE 0.75 0.57 - 1.11 mg/dL GLUCOSE 118 (H) 74 - 100 mg/dL CALCIUM 8.3 (L) 8.4 - 10.2 mg/dL AST (SGOT) 44 (H) <34 U/L ALT 23 <30 U/L ALKALINE PHOSPHATASE 79 40 - 150 U/L ALBUMIN 3.3 (L) 3.5 - 5.0 g/dL BILIRUBIN, TOTAL 0.8 <1.2 mg/dL TOTAL PROTEIN 6.7 6.4 - 8.3 g/dL eGFR >90.0 >60.0 mL/min/1.73m*2 Magnesium Collection Time: 08/14/24 5:35 AM Result Value Ref Range MAGNESIUM 1.6 1.6 - 2.6 mg/dL Assessment & Plan alcohol use disorder Counseled patient on biopsychosocial consequences of substance use. Encouraged professional chemical dependency treatment. Encouraged 12 step meeting attendance. SW to finalize addiction treatment plan with patient: Patient expressed interest in aftercare and would like to do residential treatment at [address] [place] [address]. She is interested in MAT - naltrexone, with the anticipation of Vivitrol at discharge Naltrexone 25 mg today Alcohol withdrawal Last use of alcohol (more content not included)...[facility] 08-13-2024 Nurse Note* Mayte Vazquez RN - 08/13/2024 11:08 PM EST Pt says she plans on going to residential treatment when discharged. She is up and steady. She is Aand O x 4. She denies SI/HI/AVH. She has been compliant with her medications. [id number] Plan of care note* Care Plan - Gertrude Silva RN - 08/13/2024 7:15 PM EST Up and social. Gait steady. Attended meetings. Appetite fair. Cooperative. [facility] [id number] Note* Care Coordination - MARY Padilla - 08/13/2024 12:55 PM EST Spoke [address] [place] [address] provided contact and fax number for [facility]/ [facility] program left. provided fax number spoke to pt release signed records faxed. Support offered to pt. [facility]03-07-2025 Note* Care Coordination - MARY Padilla - 08/13/2024 12:55 PM EST Spoke [address] provided contact and fax number for [facility]/ Women's program left. provided fax number spoke to pt release signed records faxed. Support offered to pt. [facility]03-07-2025 Nurse Note* Mandeep Woody RN - 08/13/2024 4:21 AM EST Pt is A &O X 4, withdrawn to room. Pt is calm, pleasant and compliant with all meds and care. PRN tylenol given for neck and shoulder pain bilateral per Pt requests. Pt denies withdrawal symptomsduring this shift. Pt is encouraged to seek staff help with any needs. Pt verbalizes understanding. [facility]03-06-2025 NoteProblem: Discharge Planning Goal: Discharge to home or other facility with appropriate resources Outcome: Progressing Problem: Sleep Disturbance Goal: Will exhibit normal sleeping pattern [facility] Plan of care note* Care Plan - Mandeep Woody RN - 08/12/2024 8:16 PM EST Problem: Discharge Planning Goal: Discharge to home or other facility with appropriate resources Outcome: Progressing Problem: Sleep Disturbance Goal: Will exhibit normal sleeping pattern Outcome: Progressing [id number] Nurse Note* Angelita Vanessa RN - 08/12/2024 6:29 PM EST Patient admitted for Dehydration [E86.0] Hypokalemia [E87.6] Nausea [R11.0] Alcohol withdrawal syndrome without complication (HCC) [F10.930] Day 1 of admission Affect/Mood Affect/Mood Range: Normal range Affect/Mood Display: Appropriate Mood: Euthymic Thought Content Delusions: No delusions Hallucinations: None Ambivalence: No (Comment) Behavior Eye Contact: Fair Exhibited Behavior: Cooperative Speech Content: Appropriate SI/HI Patient denies SI/HI and contracts for safety Medication/Therapy Patient has been compliant with medications her current medication regiment and denies that she hasany questions or concerns at the time of this interaction. Patient attended group therapy this morning and evening and feels that group therapy has been beneficial. Appetite/Sleep Patient reports her sleep was improved in comparison to previous nights prior to her being admitted. Patient reports that she her appetite is fair this morning. Patient denies N/V or other GI upset or discomfort that would affect her appetite PRN medications this shift Tylenol 650 mg @ 0845 for general upper body ache- Patient report intervention was therapeutic Vital Signs Vitals Value Taken Time BP 111/76 08/12/24 1002 Temp 36.6 C (97.9 F) 08/12/24 1002 Pulse 99 08/12/24 1002 Resp 16 08/12/24 1002 SpO2 Pain CIWA 97 % 10 2 0 08/12/24 1002 08/12/24 0845 08/12/24 1002 08/12/24 1817 [id number] Group counseling note* Group Note - Kaylin Frazier - 08/12/2024 4:14 PM EST Department: [facility] ACTIVITIES THERAPY Group Topic: Music Therapy Group Date: 08/12/2024 Start Time: 1500 End Time: 1530 Facilitators: Kaylin Frazier Number of Participants: 4 Group Name: Song share Treatment Modality: music therapy Purpose: relapse prevention strategies Summary: Pt was given the opportunity to share a song that has been helpful to them in a difficult time or makes them feel better with the group. Pt was asked to give feedback to peer choices. Discussed how music can be used as a coping skill and for emotional regulation and expression. Name: Felton Pa Date of : 1970 MR: [id number] Mental Status Exam: Appearance: Appropriately dressed and groomed Mood: Euthymic Affect: Full Behavior: Pleasant Alertness: Alert Speech: Appropriate Cognition: Intact Thought Process: Goal-directed Thought Content: No evidence of psychosis/delusions Level/Quality of Participation: active, attentive, and cooperative Interactions with others: gave feedback Interventions utilized were focused music listening and discussion Patient's Response to Intervention: Patient participated appropriately choosing a song and sharing with the group. Pt affect was bright and eye contact was good. Pt provided verbal support to peers and participated in group singing. Progress Towards Goal(s): Moderate Next Step: Continue with current services 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 pectoris Anxiety Alcohol use, unspecified with withdrawal, unspecified (HCC) Greater trochanteric bursitis Bleeding hemorrhoids Chronic back pain Hypomagnesemia Migraine without aura and responsive to treatment Mixed anxiety depressive disorder Steatosis of liver Tobacco dependence Alcohol dependence (HCC) Chronic alcohol use Abnormal mammogram Alcohol withdrawal syndrome with complication (HCC) Muscle pain Low back pain, unspecified Alcohol withdrawal seizure (HCC) Pain in joint involving pelvic region and thigh Other acidosis Alcohol abuse with withdrawal delirium (HCC) Tobacco use Thrombocytopenia (HCC) Encounter for screening for malignant neoplasm of colon Other specified disorders of breast Other disorders of bilirubin metabolism Nausea with vomiting, unspecified Major depressive disorder, single episode, unspecified Hypokalemia Generalized abdominal pain Fever, unspecified Decreased white blood cell count, unspecified Cannabis abuse, uncomplicated Severe alcohol use disorder (HCC) Acute lymphadenitis, unspecified Acute bronchitis, unspecified Transaminitis [facility] [id number] Note* Care Coordination - MARY Mackey - 08/12/2024 3:07 PM EST METAL DIE FINISHER was consulted in order to address patient's identified social determinants of health. Patient was determined to have been identified for: Food Insecurities Patient provided with extensive community's resource sheet for both identified areas. METAL DIE FINISHER will continue to work with patient and provide resources that will allow for identified community assistance for patient that will address identified social determinates of health. [facility] [id number] Note* Care Coordination - MARY Mackey - 08/12/2024 3:07 PM EST METAL DIE FINISHER was consulted in order to address patient's identified social determinants of health. Patient was determined to have been identified for: Food Insecurities Patient provided with extensive community's resource sheet for both identified areas. METAL DIE FINISHER will continue to work with patient and provide resources that will allow for identified community assistance for patient that will address identified social determinates of health. [facility] [id number] Note* Care Coordination - MARY Mackey - 08/12/2024 11:05 AM EST MARY able to contact the counseling center for [facility] patient's appointmentthat was scheduled for today. First available appointment was 08/26/2024 at 8 AM. Information including patient's discharge paperwork. MARY also able to call [facility] ADRC program and schedule patient for virtualintake appointment on 08/16/2024 at 1:30 PM. All information will be texted to her through [employer]. MARY fax referral information to [facility]. 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 [facility]03-06-2025 Note* Care Coordination - MARY Mackey - 08/12/2024 11:05 AM EST METAL DIE FINISHER able to contact the counseling center for [facility] patient's appointmentthat was scheduled for today. First available appointment was 08/26/2024 at 8 AM. Information including patient's discharge paperwork. MARY also able to call [facility] program and schedule patient for virtualintake appointment on 08/16/2024 at 1:30 PM. All information will be texted to her through [employer]. METAL DIE FINISHER fax referral information to [facility]. 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 [facility]03-06-2025 NoteLISW able to contact the counseling center for [facility] patient's appointment that was scheduled for today. First available appointment was 08/26/2024 at 8 AM. Information including patient's discharge paperwork. MARY also able to call [facility] program and schedule patient for virtual intake appointment on 08/16/2024 at 1:30 PM. All information will be texted to her through [employer]. METAL DIE FINISHER fax referral information to [facility]. 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 [facility]03-06-2025 NoteProblem: Discharge Planning Goal: Discharge to home or other facility with appropriate resources Outcome: Progressing Problem: Sleep Disturbance Goal: Will exhibit normal sleeping pattern [facility] of care note* Care Plan - Angelita Vanessa RN - 08/12/2024 10:48 AM EST Problem: Discharge Planning Goal: Discharge to home or other facility with appropriate resources Outcome: Progressing Problem: Sleep Disturbance Goal: Will exhibit normal sleeping pattern Outcome: [facility]ing [id number] History and physical note* Elsa Burkstiffany, DO - 08/12/2024 10:09 AM EST Images from the original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 Deviation 56.2 H, RDW Coeff of Dixie 15.1 H, Plt Count 90 L, MPV 11.3, Immature Gran % (Auto) 0.300, Neut % (Auto) 52.8, Lymph % (Auto) 33.0, Irwin % (Auto) 10.3 H, Eos % (Auto) 2.8, Baso % (Auto) 0.8, AbsoluteNeuts (auto) 2.1, Absolute Lymphs (auto) 1.32, Nucleated RBC % 0, Sodium 137, Potassium 3.3 L, Chloride 107, Carbon Dioxide 22.0, Anion Gap 7, BUN 5 L, Creatinine 0.64, Estim Creat Clear Calc 99.47, Est GFR (MDRD) Af Amer 125, Est GFR (MDRD) Non-Af 103, BUN/Creatinine Ratio 7.8 L, Glucose 86, Calcium 8.6 D/C Instructions Discharge Diet: No restrictions Weight Bearing Status: Weight bearing as tolerated Call your doctor if you observe: Fever of 101 or Higher, Coldness, Increased Pain, Numbness or Tingling, Change in Color, Inability to urinate, Inability to have a bowel movement, Shortness of breath, Dizziness, Fainting spells, Swellingin the ankles, Chest pain, Prolonged hiccupping, Increased palpitations (irregular heartbeat) and Calf discomfort DC O2, CPAP, BIPAP Needs Home O2 Discharge instructions: No When: IN 2 WEEKS Meaningful Use Info Meaningful Use Meaningful Use Diagnoses (Choose all that apply): None applicable Ischemic Stroke Statin Dosing Therapy Reference: STATIN DOSE THERAPY REFERENCE: * Patients > 75 years receive moderate or high dose statin therapy. * Patients 75 years or YOUNGER should receive HIGH intensity statin dose unless contraindicated. You will be required to document reason for non-treatment if statin daily dose does not meet guidelines. HIGH DOSE STATIN THERAPY DAILY Atorvastatin > than or = to 40 mg Rosuvastatin > than or = to 20 mg Amlodipine + Atorvastatin > than or = to 2.5/40 mg Ezetimibe + Simvastatin 10/80 mg Simvastatin 80mg Discharge Plan Admission Admit Date/Time: 07/27/24 21:48 Primary Reason for Your Visit: Acute alcohol withdrawal syndrome Attending Provider: Norbert Jansne Primary Care Provider: Callie Nichols Consulting Providers: Raina Palomares Discharge Orders/Prescriptions Prescriptions: New thiamine HCl (vitamin B1) 100 mg Tablet 100 mg PO DAILYCM 30 Days Qty: 30 0RF nicotine 21 mg/24 hr Patch 24 Hour 21 mg transdermal DAILY 28 Days Qty: 28 0RF spironolactone 50 mg Tablet 100 mg PO DAILYCM 30 Days Qty: 60 0RF Rx Instructions: Hold for serum potassium more than 5.0 Continued flurbiprofen 100 mg tablet 100 mg PO TID PRN (Reason: pain) Qty: 270 2RF omeprazole 40 mg capsule,delayed release(DR/EC) 40 mg PO QDAY Qty: 90 1RF Rx Instructions: Take 30 minutes before breakfast folic acid 1 mg tablet 1 mg PO DAILY 30 Days Qty: 30 2RF escitalopram oxalate 20 mg tablet 20 mg PO DAILY Qty: 90 0RF lisinopril 5 mg tablet 5 mg PO DAILY Qty: 30 0RF trazodone 50 mg tablet 50 mg PO QHS PRN (Reason: insomnia) Qty: 10 0RF zonisamide 100 mg capsule 100 mg .ROUTE .COMPLEX Qty: 90 3RF Rx Instructions: Take 1 capsule PO every morning and 2 capsules every evening Discontinued spironolactone 25 mg tablet 75 mg PO DAILY Qty: 90 3RF Rx Instructions: Hold if K more than 5.0. Advised BMP in 3 days cephalexin 500 mg capsule 500 mg PO BID Qty: 4 0RF Referrals / Follow Up: Callie Nichols MD [Primary Care Provider] - In 1 Week Homer Guzman NP, COUNCIL MEM[employer]-C [Med Staff - Adv Practice Prof] - (Unclear history of CAD) Disposition Disposition (needs filled in before D/C Order can be placed): Home, Self Care Charges/Coding Visit Charges Inpatient E&M: 40073 Disch Hosp >30min 07/30/24 1310 <Electronically signed by Norbert Jansen MD> Cosigner Signature (if applicable): CC: Dr. Callie Nichols MD; Dr. Norbert Jansen MD~ Signed [facility] Work Phone: 1(138) 654-595802-21-2025 Discharge summary Author Norbert Jansen [facility] Note Date/Time July 30, 2024 12:05pm [facility] Medical Records Department [address] [place] [address] Instructions for Home/Discharge Instructions 07/30/24 1011 MR#: [id number] Acct: [id number] Name: FELTON PA Rep #:[id number] : 1970 54 From: Norbert Shelton PCP: Dr. Callie Nichols MD Status:A DM IN Discharge Instructions Diet Discharge Diet: No restrictions DC O2, CPAP, BIPAP needs Home O2 Discharge instructions: No Dressing / Incision Discharge Activity: Return to Normal Activity Weight Bearing Status: Weight bearing as tolerated Dressing / Incision Call your doctor if you observe: Fever of 101 or Higher, Coldness, Increased Pain, Numbness or Tingling, Change in Color, Inability to urinate, Inability to have a bowel movement, Shortness of breath, Dizziness, Fainting spells, Swellingin the ankles, Chest pain, Prolonged hiccupping, Increased palpitations (irregular heartbeat) and Calf discomfort Follow Up Care When: IN 2 WEEKS Test Results: Test results from this visit will be discussed in further detail at your follow- up appointment, if applicable. Discharge Plan Admission Admit Date/Time: 07/27/24 21:48 Primary Reason for Your Visit: Acute alcohol withdrawal syndrome Attending Provider: Norbert Jansen Primary Care Provider: Callie Nichols Consulting Providers: Raina Palomares Discharge Orders/Prescriptions Prescriptions: New thiamine HCl (vitamin B1) 100 mg Tablet 100 mg PO DAILYCM 30 Days Qty: 30 0RF nicotine 21 mg/24 hr Patch 24 Hour 21 mg transdermal DAILY 28 Days Qty: 28 0RF spironolactone 50 mg Tablet 100 mg PO DAILYCM 30 Days Qty: 60 0RF Rx Instructions: Hold for serum potassium more than 5.0 Continued flurbiprofen 100 mg tablet 100 mg PO TID PRN (Reason: pain) Qty: 270 2RF omeprazole 40 mg capsule,delayed release(DR/EC) 40 mg PO QDAY Qty: 90 1RF Rx Instructions: Take 30 minutes before breakfast folic acid 1 mg tablet 1 mg PO DAILY 30 Days Qty: 30 2RF escitalopram oxalate 20 mg tablet 20 mg PO DAILY Qty: 90 0RF lisinopril 5 mg tablet 5 mg PO DAILY Qty: 30 0RF trazodone 50 mg tablet 50 mg PO QHS PRN (Reason: insomnia) Qty: 10 0RF zonisamide 100 mg capsule 100 mg .ROUTE .COMPLEX Qty: 90 3RF Rx Instructions: Take 1 capsule PO every morning and 2 capsules every evening Discontinued spironolactone 25 mg tablet 75 mg PO DAILY Qty: 90 3RF Rx Instructions: Hold if K more than 5.0. Advised BMP in 3 days cephalexin 500 mg capsule 500 mg PO BID Qty: 4 0RF Referrals / Follow Up: Callie Nichols MD [Primary Care Provider] - In 1 Week Homer Guzman NP, [employer]-C [Med Staff - Adv Practice Prof] - (Unclear history of CAD) Disposition Disposition (needs filled in before D/C Order can be placed): Home, Self Care 07/30/24 1305<Electronically signed by Norbert Jansen MD>Norbert Jansen MD CC: Dr. Raina Palomares MD; Dr. Callie Nichols MD ~ Signed [facility] Work Phone: 1(984) 745-416602-21-2025 [facility]02-20-2025 Progress note Author Norbert Jansen [facility] Note Date/Time July 29, 2024 5:00pm [facility] Medical Records Department [address] [place] [address] Progress Note - Hospitalist 07/29/24 2034 MR#: [id number] Acct: [id number] Name: FELTON PA Rep #:[id number] : 1970 54 From: Norbert Shelton PCP: Dr. Callie Nichols MD Status:A DM IN Location: [place] [address]- 1 Reason for Visit Reason for Visit: Diagnoses Alcohol use, unspecified with withdrawal, unspecified (07/27/24) Objective Data Objective Data Vital Signs: Vital Signs Temp Pulse Resp BP Pulse Ox O2 Del Method 98.3 F 109 H 18 92/65 98 Room Air 07/29/24 15:16 07/29/24 15:16 07/29/24 15:16 07/29/24 15:16 07/29/24 15:16 07/29/24 15:16 Oxygen Delivery Method Room Air Weight: 160 lb 11.472 oz Body Mass Index (BMI) 27.6 Intake & Output: Intake and Output for Last 24 Hours 07/27/24 07/28/24 07/29/24 23:59 23:59 23:59 Intake Total 511 / 511 2060.00 / 2300.00 483.75 / 483.75 Balance 511 / 511 2060.00 / 2300.00 483.75 / 483.75 Lab / Micro Data 07/28/24 20:03 07/28/24 06:43 Labs: Laboratory Results - last 24 hr 07/28/24 20:03: Hgb 10.7 L, Hct 31.8 L Physical Exam Narrative Seen and examined. Patient is mild drowsy and lethargic. She states no acute complaint. Physical exam General: Awake. Mild drowsy. HEENT: Atraumatic, PERRLA, EOMI, Normocephalic Oral: No Gingival or Mucosal Lesions/ Ulcerations Neck: Supple, No JVD, Negative Carotid Bruits Chest wall/Lungs: Air entry diminished in bilateral lung bases. No crepitation/rhonchi Cardiovascular: Mild sinus tachycardia, Normal S1, Normal S2, No M/G/R Abdomen: Bowel Sounds Present, Soft, Non Tender, Non-Distended : No dysuria. No renal angle tenderness. No suprapubic tenderness. Extremities: No edema, Capillary Refill Less than 3 Seconds Skin: No rashes, No breakdown Musculoskeletal: No Tenderness to Palpation of Joints or Extremities Neurological: Cranial nerves II-XII grossly intact, DTR 2+/4. No acute focal neurological deficit. Psych/Mental Status: Flat affect Assessment & Plan Assessment/Plan (1) Alcohol withdrawal: PLAN: Plan The patient is a 54 y/o F who was admitted with acute alcohol withdrawal syndrome. #1. Acute Toxic/Metabolic Encephalopathy secondary to Acute EtOH Withdrawal syndrome with previous history of DT complicated by underlying seizure disorder:Patient is being admitted in PCU. Patient on phenobarbital based order set along with other adjunctive medications gabapentin, Bentyl, Vistaril, clonidine,Klonopin as needed for alcohol withdrawal symptom control. Patient is on thiamine and folate acid. CIWA monitor. plant production manager 180 consulted. #2. Hypokalemia: Admission K+ 3.4, potassium was replaced. #3. Hyperglycemia, secondary to chronic alcohol abuse: Most recent hemoglobin A1c 03/11/2024 4.7%. Glucose 155 #4. Chronic thrombocytopenia, alcohol abuse/toxicity related: Admission platelet 127, repeat platelet count is 102,000. #5. History SVT: Patient with known history, heart rate is #6. Seizure disorder/epilepsy: Following with Dr. Henderson, last noted evaluation 01/29/24, will continue antiepileptic regimen including zonisamide. Would benefit from earlier follow-up with neurology at discharge. #7. CAD: Status post PCI 2016 of unclear location, continue aspirin, not on statin, not on beta-santiago therapy, continue lisinopril regimen, would benefit from follow-up with cardiology follow-up outpatient. #9. Hypertension: Continue home regimen including lisinopril, spironolactone, PRN hydralazine. #10. Anxiety depression/bipolar disorder: We will continue patient home escitalopram regimen, given this reported history would benefit from consideration of broadening regimen to also include mood stabilizer, encourage continued outpatient follow- up. #11. Chronic migraines: Not on chronic prophylactic regimen, mild headache uponcurrent presentation, will have as needed regimen. #12. Tobacco Abuse: Encouraged cessation, inpatient consultation per RT, NR if desired. #13. Chronic back pain: Encourage frequent positional changes, offloading. #14. Chronic cannabis use: Urine drug screen requested. #15. Chronic anemia/iron deficiency anemia: Admission CBC with hemoglobin 12.3,MCV 98.7, baseline hemoglobin commonly 12, stable. #16. Allergic rhinitis: Per current list does not appear to be on any regimen, noted history previously. #17. DVT prophylaxis: Low risk for type of admission for EtOH withdrawal treatment. Charges/Coding Visit Charges Inpatient E&M: 50899 Subs Hosp L2 07/29/24 1800 <Electronically signed by Norbert Jansen MD> Cosigner Signature (if applicable): CC: ~ Signed [facility] Work Phone: [phone]) 436-673902-19-2025 Progress note Author Norbert Jansen [facility] Note Date/Time July 28, 2024 12:36pm [facility] Medical Records Department [address] [place] [address] Progress Note - Hospitalist 07/28/24 1330 MR#: [id number] Acct: [id number] Name: FELTON PA Rep #:[id number] : 1970 54 From: Norbert Shelton PCP: Dr. Callie Nichols MD Status:A DM IN Location: [place] [address] Hospitalist Note Patient was admitted about 6:37 AM. She was sleeping but woke up. Admitted with acute alcohol withdrawal. She drinks 1 pint of whiskey every day started around teenage. Denies hallucination. Respiratory: Patient does not have history of asthma or does not do inhalers at home. Therefore Pulmicort discontinued Vitals reviewed. Mild sinus tachycardia. Labs reviewed. Mild hypokalemia potassium replaced. Total bilirubin 2.0 direct 1.09. AST more than ALT about 2is to 1 ratio. Acute on chronic alcoholic hepatitis 07/28/24 1332 <Electronically signed by Norbert Jansen MD> Cosigner Signature (if applicable): CC: ~ Signed ADDENDUM by Dr. Norbert Jansen MD on 07/28/24 at 1336 Addendum Patient is stated that he had been vomiting bright red rectal blood. H&H 10.8/32.6%. She was admitted 12.3/37% but that might be hemoconcentration. H&Hordered for evening today Laboratory Results 07/27/24 18:00: WBC 4.0 L, RBC 3.75 L, Hgb 12.3, Hct 37.0, MCV 98.7, MCH 32.8 H,MCHC 33.2, RDW Std Deviation 53.9 H, RDW Coeff of Dixie 14.6, Plt Count 127 L, MPV10.7, Immature Gran % (Auto) 0.500, Neut % (Auto) 78.9 H, Lymph % (Auto) 14.3 L,Irwin % (Auto) 5.5, Eos % (Auto) 0.3, Baso % (Auto) 0.5, Absolute Neuts (auto) 3.2, Absolute Lymphs (auto) 0.57 L, Nucleated RBC % 0, Sodium 138, Potassium 3.4L, Chloride 103, Carbon Dioxide 17.0 L, Anion Gap 18 H, BUN 7, Creatinine 0.75, Estim Creat Clear Calc 85.59, Est GFR (MDRD) Af Amer 104, Est GFR (MDRD) Non-Af 86, BUN/Creatinine Ratio 9.3 L, Glucose 176 H, Calcium 9.3, Total Bilirubin 3.50H, Direct Bilirubin 1.09 H, AST 142 H, ALT 59 H, Alkaline Phosphatase 134 H, Total Protein 8.0, Albumin 3.6, Globulin 4.4 H, Lipase 17 L, Ethyl Alcohol < 3.0 07/27/24 19:55: Serum , Qual NEGATIVE 07/27/24 20:31: Urine Opiates Screen NEGATIVE, Urine Methadone Screen NEGATIVE, Ur Barbiturates Screen POSITIVE H, Ur Phencyclidine Scrn NEGATIVE, Ur Amphetamines Screen NEGATIVE, MDMA (Ecstasy) Screen NEGATIVE, U Benzodiazepines Scrn NEGATIVE, Urine Cocaine Screen NEGATIVE, U Cannabinoids Screen POSITIVE H, Ur Drug Screen Comment 07/27/24 21:53: Phosphorus 2.4 L, Magnesium 1.1 L 07/28/24 06:43: WBC 4.1 L, RBC 3.27 L, Hgb 10.8 L, Hct 32.6 L, MCV 99.7 H, MCH 33.0 H, MCHC 33.1, RDW Std Deviation 54.7 H, RDW Coeff of Dixie 14.9 H, Plt Count 102 L, MPV 10.5, Immature Gran % (Auto) 0.200, Neut % (Auto) 75.0 H, Lymph % (Auto) 16.7 L, Irwin % (Auto) 7.9, Eos % (Auto) 0.0, Baso % (Auto) 0.2, Absolute Neuts (auto) 3.0, Absolute Lymphs (auto) 0.68 L, Nucleated RBC % 0, Sodium 136, Potassium 3.3 L, Chloride 102, Carbon Dioxide 23.0, Anion Gap 11, BUN 7, Creatinine 0.58, Estim Creat Clear Calc 109.76, Est GFR (MDRD) Af Amer 138, Est GFR (MDRD) Non-Af 114, BUN/Creatinine Ratio 12.0, Glucose 105, Calcium 8.8, Total Bilirubin 2.00 H, AST 86 H, ALT 48, Alkaline Phosphatase 111, Total Protein 7.1, Albumin 3.2, Globulin 3.9, Albumin/Globulin Ratio 0.8 L 07/28/24 12:52: Phosphorus 3.8, Magnesium 2.2 07/28/24 1336<Electronically signed by Norbert Jansen MD> Cosigner Signature (if applicable): cc: ~* Signed [facility] Work Phone: [phone]) 116-526202-19-2025 Progress note Author [facility] Note Date/Time July 28, 2024 5:37am [facility] Medical Records Department [address] [place] [address] Progress Note - Hospitalist 07/28/2437 MR#: [id number] Acct: [id number] Name: FELTON PA Rep #:[id number] : 1970 54 From: Raina Palomares MD PCP: Dr. Callie Nichols MD Status:A DM IN Location: [place] [address] Hospitalist Note K, Phos, mag all decreased, will supplement and repeat level mag, phos later in the day. 07/28/2437 <Electronically signed by Raina Palomares MD> Cosigner Signature (if applicable): CC: ~ Signed [facility] Work Phone: 1([phone] 602-114602-18-2025 History and physical note Author [facility] Note Date/Time July 27, 2024 9:31pm [facility] Medical Records Department [address] [place] [address] H&P Exam - Hospitalist 07/27/242135 MR#: [id number] Acct: [id number] Name: FELTON PA Rep #:[id number] : 1970 54 From: Raina Palomares MD PCP: Dr. Callie Nichols MD Status:A DM IN Location: [place] [id number] HPI - General General Date of Admission: 07/27/24 Date of Service: 07/27/24 Chief Complaint: EtOH withdrawal. HPI Narrative The patient is a 54 y/o F w/ PMHx: Chronic thrombocytopenia, Anxiety and Depression/Bipolar disorder, Seizure disorder, Chronic migraines, Chronic back pain, Cannabis chronic use, Tobacco use, Chronic anemia/ Fe deficiency anemia, HTN, Allergic rhinitis, EtOH abuse, CAD s/p PCI, recent discharge 07/10/2024 secondary to delirium tremens with underlying alcohol abuse with electrolyte disturbances with urinalysis concerning for UTI placed on Rocephin initially anddischarged on Keflex with final urine culture from 07/10/2024 with no growth exhibited in addition to acute on chronic thrombocytopenia as well as acute on chronic hyperbilirubinemia and transaminitis felt secondary to alcohol toxicity with upon discharge recommendation of home health at home versus skilled facility which she declined per review of discharge note who presents to the [facility] on 07/27/2024 with history of resumption of alcohol intake approximate 1 pint of liquor daily since her discharge with last alcohol intake the evening prior who now re-presents with again noted acute EtOH withdrawal, onset starting over the course of the day and worsening with onset of nausea, tremors, agitation, tactile disturbances. She also reports abdominal cramping diffusely. Patient interested in attaining sober status. Workup in the ED included T98.3, heart rate 89, BP 127/100, respiratory rate 45, 100% room air--> most recent BP 176/110, heart rate 110, respiratory rate 16, 94% room air,, CBC with WBC 4.0, hemoglobin 12.3, MCV 98.7, platelet 127 with lymphopenia, CMP with sodium 138, potassium 3.4, chloride 103, carbon oxide 17, anion gap 18, BUN/creatinine 7/0.75, GFR 86, glucose 176, T. bili 3.50, D bili 1.09, AST/ALT 142/59, alk [id number], lipase 17, ethyl alcohol less than 3, UDS with positive barbiturates and cannabis, CT of the brain with no acute findings, serum testing negative. In the ED patient administered lorazepam 2 mg IV x 1, Zofran 4 mg IV x1, phenobarbital 97.2 mg p.o. x 1, thiamine 100 mg IV x 1. [facility] Medical History Grief reaction Alcoholic liver disease Cannabis abuse Tobacco abuse Chronic alcohol abuse GERD (gastroesophageal reflux disease) Pancreatitis Elevated troponin Alcohol abuse Health care maintenance Trochanteric bursitis, right hip Chronic back pain Breast cancer screening Pain in joint involving right pelvic region and thigh Migraine without aura and without status migrainosus, not intractable Wears glasses Cancer Bipolar disorder Depression Anxiety Alcohol use Marijuana use Low iron Easy bruising Injury of back Injury of head and neck Loss of consciousness Syncope Seizures Smoker Leg cramps Cardiology follow-up encounter Hypertension Multiple joint pain Seizure disorder Heart valve disease Potassium (K) deficiency Vision problem History of pancreatitis Carpal tunnel syndrome Back problem Arthritis Anemia Seasonal allergies AA (alcohol abuse) UTERINE ABLATION Attempted suicide Difficulty balancing Seizures Diarrhea Hypertension Home Medications ?Medication ?Instructions ?Recorded ?Last Taken ?Type escitalopram oxalate 20 mg tablet 20 mg PO DAILY [employer] #90 11/20/23 Unknown Rx tabs lisinopril 5 mg tablet 5 mg PO DAILY blood pressure #30 01/06/24 Unknown Rx tabs flurbiprofen 100 mg tablet 100 mg PO TID PRN pain #270 tabs 01/29/24 Unknown Rx spironolactone 25 mg tablet 75 mg (3 x 25 mg) PO DAILY #90 tabs 03/14/24 Unknown Rx trazodone 50 mg tablet 50 mg PO QHS PRN insomnia #1 0 tabs 06/28/24 Unknown Rx cephalexin 500 mg capsule 500 mg PO BID #4 caps Unknown Rx folic acid 1 mg tablet 1 mg PO DAILY #30 tabs 07/10 Unknown Rx omeprazole 40 mg capsule,delayed 40 mg PO QDAY #90 cap s 07/12/24 Unknown Rx release zonisamide 100 mg capsule 100 mg .Route .COMPLEX EPILE PSY 07/13/24 Unknown Rx #90 caps Allergy/AdvReac Type Severity Reaction Status Date / Time Penicillins Allergy Other Verified 07/27/24 18:06 bupropion HCl (From AdvReac Depression Verified 07/27/24 18:06 Wellbutrin) Family History Aunt Breast cancer Thyroid disorder Father Cancer Grandfather Cancer Mother Diabetes Hypertension Grandmother Myocardial infarction Heart disease Hypertension Cancer Hypercholesterolemia Other Cerebral aneurysm Surgical History Tubal ligation status History of endometrial ablation History of tubal ligation S/P skin cancer resection H/O heart artery stent bladder sling History of heart surgery Social History Smoking Status: Current every day smoker tobacco type: cigarettes Tobacco: How many years used: 26 Electronic Cigarette Use: not used second hand exposure: Yes alcohol intake: current alcohol intake frequency: 3 or more drinks per day Alcohol type: beer, wine and other details: Recent heavy hard liquor intake, prior intermittent beer intake, 1- 3/time. substance use type: former substance user and marijuana what type of physical activity do you participate in: walking, bicycling and other details: LEG LIFTS frequency: daily sharon/uatsdin: None seatbelt use: always ROS ROS Narrative Admission Review of Systems: CONSTITUTIONAL: No weight loss, fever, chills, + weakness or fatigue. HEENT: Eyes: No visual loss, blurred vision, double vision or yellow sclerae. Ears, Nose, Throat: No hearing loss, sneezing, congestion, runny nose or sore throat. SKIN: No rash or itching, lesions, wounds. CARDIOVASCULAR: No chest pain, chest pressure or chest discomfort, palpitations,edema, orthopnea, syncopal events. RESPIRATORY: No shortness of breath, cough or sputum, wheezing, hemoptysis. GASTROINTESTINAL: + anorexia, nausea, vomiting, abdominal pain/cramping. No diarrhea, melena, BRBPR. GENITOURINARY: No dysuria, frequency, urgency or retention. NEUROLOGICAL: + Tremulous, underlying seizure disorder. Dizziness, syncope, paralysis, ataxia, numbness or tingling in the extremities, focal weakness, change in bowel or bladder control. MUSCULOSKELETAL: + muscle, back pain, joint pain or stiffness. HEMATOLOGIC: + Chronic anemia, easy bleeding/bruising. LYMPHATICS: No enlarged nodes. No history of splenectomy. PSYCHIATRIC: + History of anxiety and depression. ENDOCRINOLOGIC: + reports of sweating, cold or heat intolerance. No polyuria or polydipsia. ALLERGIES: No history of asthma, hives, eczema or rhinitis. Vital Signs Vital Signs Vital Signs: 07/27/24 18:02 07/27/24 19:48 07/27/24 20:56 Temperature 98.3 F Temperature Source Oral Pulse Rate 89 110 H 115 H Respiratory Rate 45 H 16 23 H Blood Pressure 127/100 H 176/110 H 135/93 H Blood Pressure Mean 109 132 107 Pulse Ox 100 94 95 Oxygen Delivery Method Room Air Room Air Room Air Weight Weight: 163 lb 9.328 oz Body Mass Index (BMI) 28.0 Physical Exam Narrative Physical Examination: General: Awake, alert, oriented x 3 and cooperative, laying in the ED bed, uncomfortable appearing, ongoing nausea, abdominal cramping she notes. Skin: Normal color, normal turgor, no icterus, no cyanosis except occasional very staged ecchymoses, abrasions. HEENT: AT/NC, EOMI, PERRLA, dry MM, no carotid bruits or JVD noted. Lungs: Diminished, greater bases, mildly increased respiratory rate but no distress, no rales, ronchi or wheezing. Heart: Tachycardic with currently regular rhythm; no gallop, rub audible. Abdomen: Soft, mild generalized discomfort but no rebound or guarding, ND, hyperactive BS, no markedly appreciated HSM. Extremities: No cyanosis, clubbing, or edema. Neurological: Patient awake, alert, oriented as noted, cognitive function intact; pupils equally reactive to light and accommodation, cranial nerves grossly normal, moving all 4 extremities, no focal deficits, strength moderatelyto severely globally decreased secondary to acute complaints, tremulous appearing. Psychiatric: Affect appears fatigued, uncomfortable, no acute evidence of depressive or anxiety feelings but does have underlying history. Results Lab / Micro Data 07/27/24 18:00 07/27/24 18:00 Labs: Laboratory Results - last 24 hr 07/27/24 18:00: WBC 4.0 L, RBC 3.75 L, Hgb 12.3, Hct 37.0, MCV 98.7, MCH 32.8 H,MCHC 33.2, RDW Std Deviation 53.9 H, RDW Coeff of Dixie 14.6, Plt Count 127 L, MPV10.7, Immature Gran % (Auto) 0.500, Neut % (Auto) 78.9 H, Lymph % (Auto) 14.3 L,Irwin % (Auto) 5.5, Eos % (Auto) 0.3, Baso % (Auto) 0.5, Absolute Neuts (auto) 3.2, Absolute Lymphs (auto) 0.57 L, Nucleated RBC % 0, Sodium 138, Potassium 3.4L, Chloride 103, Carbon Dioxide 17.0 L, Anion Gap 18 H, BUN 7, Creatinine 0.75, Estim Creat Clear Calc 85.59, Est GFR (MDRD) Af Amer 104, Est GFR (MDRD) Non-Af 86, BUN/Creatinine Ratio 9.3 L, Glucose 176 H, Calcium 9.3, Total Bilirubin 3.50H, Direct Bilirubin 1.09 H, AST 142 H, ALT 59 H, Alkaline Phosphatase 134 H, Total Protein 8.0, Albumin 3.6, Globulin 4.4 H, Lipase 17 L, Ethyl Alcohol < 3.0 07/27/24 19:55: Serum , Qual NEGATIVE 07/27/24 20:31: Urine Opiates Screen NEGATIVE, Urine Methadone Screen NEGATIVE, Ur Barbiturates Screen POSITIVE H, Ur Phencyclidine Scrn NEGATIVE, Ur Amphetamines Screen NEGATIVE, MDMA (Ecstasy) Screen NEGATIVE, U Benzodiazepines Scrn NEGATIVE, Urine Cocaine Screen NEGATIVE, U Cannabinoids Screen POSITIVE H, Ur Drug Screen Comment Imaging Radiology Impression Brain CT 07/27/24 18:52 IMPRESSION: No CT evidence of acute intracranial pathology. Reading Location: [facility] Assessment & Plan Assessment/Plan (1) Alcohol withdrawal: PLAN: Plan The patient is a 54 y/o F w/ PMHx: Chronic thrombocytopenia, Anxiety and Depression/Bipolar disorder, Seizure disorder, Chronic migraines, Chronic back pain, Cannabis chronic use, Tobacco use, Chronic anemia/ Fe deficiency anemia, HTN, Allergic rhinitis, EtOH abuse, CAD s/p PCI, recent discharge 07/10/2024 secondary to delirium tremens with underlying alcohol abuse with electrolyte disturbances with urinalysis concerning for UTI placed on Rocephin initially anddischarged on Keflex with final urine culture from 07/10/2024 with no growth exhibited in addition to acute on chronic thrombocytopenia as well as acute on chronic hyperbilirubinemia and transaminitis felt secondary to alcohol toxicity with upon discharge recommendation of home health at home versus skilled facility which she declined per review of discharge note who presents to the [facility] on 07/27/2024 with history of resumption of alcohol intake approximate 1 pint of liquor daily since her discharge with last alcohol intake the evening prior who now re-presents with again noted acute EtOH withdrawal, onset starting over the course of the day and worsening with onset of nausea, tremors, agitation, tactile disturbances. Patient interested in attaining sober status. #1. Acute Toxic/Metabolic Encephalopathy secondary to Acute EtOH Withdrawal with persistent underlying alcohol abuse with history of previous delirium tremens complicated by also underlying seizure disorder/epilepsy with acute on chronic transaminitis, acute on chronic hyperbilirubinemia secondary to alcoholic hepatitis, continue to worsen: Will admit to PCU to be cautious given significant seizure history and previous DVT history. Given continued interest in sobriety, will initiate and continue on protocol with taper course of Phenobarbital but if repeat CMP with worsening liver function may need to consider transitioning to ativan shorter acting regimen but will monitor w/ overlapping CIWA with ativan as needed gabapentin, Catapres, Bentyl, Vistaril, IV fluids, IV antiemetics, Tylenol as needed for pain. Will consult Case management for assistance for transition to next level of rehabilitation care. Mag, phos pending. Maintain on CIWA protocol concurrently. Given quick return would benefit strongly from more structured discharge plan aside home but unclear if she will agree at time of discharge. Patient bilirubin as well as LFTs have continued to rise, would benefit from follow-up with gastroenterology and as noted taper change. #2. Hypokalemia: Admission K+ 3.4, magnesium level requested, supplementation given, repeat level in AM. #3. Hyperglycemia, secondary to chronic alcohol abuse: Most recent hemoglobin A1c 03/11/2024 4.7%, will continue evaluation and treatment as noted, continue tohydrate and if repeat assessment significantly notable for hyperglycemia ongoingdespite withdrawal treatment may consider repeat testing. #4. Chronic thrombocytopenia, alcohol abuse/toxicity related: Admission platelet 127, improved from recent presentation, stable compared to previous baseline. #5. History SVT: Patient with known history, will supplement electrolytes as needed, mag and Phos levels also requested, will maintain on PCU as noted.. #6. Seizure disorder/epilepsy: Following with Dr. Henderson, last noted evaluation 01/29/24, will continue antiepileptic regimen including zonisamide. Would benefit from earlier follow-up with neurology at discharge. #7. CAD: Status post PCI 2017 of unclear location, continue aspirin, not on statin, not on beta-santiago therapy, continue lisinopril regimen, would benefit from follow-up with cardiology follow-up outpatient. #9. Hypertension: Continue home regimen including lisinopril, spironolactone, PRN hydralazine. #10. Anxiety depression/bipolar disorder: We will continue patient home escitalopram regimen, given this reported history would benefit from consideration of broadening regimen to also include mood stabilizer, encourage continued outpatient follow- up. #11. Chronic migraines: Not on chronic prophylactic regimen, mild headache uponcurrent presentation, will have as needed regimen. #12. Tobacco Abuse: Encouraged cessation, inpatient consultation per RT, NR if desired. #13. Chronic back pain: Encourage frequent positional changes, offloading. #14. Chronic cannabis use: Urine drug screen requested. #15. Chronic anemia/iron deficiency anemia: Admission CBC with hemoglobin 12.3,MCV 98.7, baseline hemoglobin commonly 12, stable. #16. Allergic rhinitis: Per current list does not appear to be on any regimen, noted history previously. #17. DVT prophylaxis: Low risk for type of admission for EtOH withdrawal treatment. Charges/Coding Visit Charges Inpatient E&M: 32044 Init Hosp L3 07/27/24 2231 <Electronically signed by Raina Palomares MD> Cosigner Signature (if applicable): CC: Dr. Raina Palomares MD; Dr. Callie Nichols MD~ Signed [facility] Work Phone: 1(121) 335-354302-18-2025 Radiology Diagnostic study [facility]02-01-2025 [facility]01-28-2025 Evaluation note* Diagnosis Onset Date Resolution Status Admit Date Acquired hyperbilirubinemia acute July 06, 2024 2:59am Leukopenia acute July 06, 2024 2:59am Thrombocytopenia acute July 06, 2024 2:59am Acute hypokalemia resolved July 06, 2024 2:59am Alcohol withdrawal resolved Cyndy khan 2024 2:59am Alcoholic ketoacidosis resolved Yovany gutierrez 2024 2:59am Delirium tremens resolved July 06, 2024 2:59am Fever resolved July 06, 2024 2:59am Hypomagnesemia resolved July 062024 2:59am Intractable nausea and vomiting reso lved July 06, 2024 2:59am Potassium (K) deficiency resolved July 06, 2024 2:59am Alcohol abuse inactive June 2:59am Bipolar disorder inactive July 06, 2024 2:59am Cannabis abuse inactive July 062024 2:59am Chronic alcohol abuse inactive Jun 2:59am Seizure disorder inactive July 06, 2024 2:59am Tobacco abuse inactive June 2:59am Alcoholic liver disease acute F ebru2024 1:17pm Grief reaction acute July 122024 1:17pm Anxiety and depression chronic 2024 1:17pm Acute hypokalemia resolved 2024 1:17pm Delirium tremens resolved July 12, 2024 1:17pm Hypomagnesemia resolved July 122024 1:17pm Alcohol abuse inactive July 1:17pm Alcohol withdrawal resolved 2024 9:48pm Anemia acute September 17 2:05pm Swelling of lower leg acute Apr 2024 2:05pm Anxiety and depression chronic Ap 2024 2:05pm Hypertension chronic September 17, 2024 2:05pm [facility] Work Phone: 1(886) 714-547501-28-2025 Evaluation note* Diagnosis Onset Date Resolution Status Admit Date Acquired hyperbilirubinemia acute July 06, 2024 2:59am Leukopenia acute July 06, 2024 2:59am Thrombocytopenia acute July 06, 2024 2:59am Acute hypokalemia resolved July 06, 2024 2:59am Alcohol withdrawal resolved 2024 2:59am Alcoholic ketoacidosis resolved [facility] 2024 2:59am Delirium tremens resolved July 06, 2024 2:59am Fever resolved July 06, 2024 2:59am Hypomagnesemia resolved July 062024 2:59am Intractable nausea and vomiting reso lved July 06, 2024 2:59am Potassium (K) deficiency resolved July 06, 2024 2:59am Alcohol abuse inactive June 2:59am Bipolar disorder inactive July 06, 2024 2:59am Cannabis abuse inactive July 062024 2:59am Chronic alcohol abuse inactive Jun ua2024 2:59am Seizure disorder inactive July 06, 2024 2:59am Tobacco abuse inactive June 2:59am Alcoholic liver disease acute F ebruary 2024 1:17pm Grief reaction acute July 122024 1:17pm Anxiety and depression chronic Fe bru2024 1:17pm Acute hypokalemia resolved 2024 1:17pm Delirium tremens resolved July 12, 2024 1:17pm Hypomagnesemia resolved July 122024 1:17pm Alcohol abuse inactive July 1:17pm Alcohol withdrawal resolved 2024 9:48pm Anemia acute September 17 2:05pm Swelling of lower leg acute Sep 2:05pm Anxiety and depression chronic Ap ril 2024 2:05pm Hypertension chronic September 17, 2024 2:05pm Anemia acute October 07, 2024 8:38am Hypersomnia acute October 07, 2024 8:38am Low back pain acute October 07 8:38am Epilepsy chronic October 07, 2024 8:38am Right hip pain chronic October 07, 8:38am [facility] Work Phone: 1(438) 677-363501-28-2025 Evaluation note* Diagnosis Onset Date Resolution Status Admit Date Acquired hyperbilirubinemia acute July 06, 2024 2:59am Leukopenia acute July 06, 2024 2:59am Thrombocytopenia acute July 06, 2024 2:59am Acute hypokalemia resolved July 06, 2024 2:59am Alcohol withdrawal resolved 2024 2:59am Alcoholic ketoacidosis resolved Ja nuary 2024 2:59am Delirium tremens resolved July 06, 2024 2:59am Fever resolved July 06, 2024 2:59am Hypomagnesemia resolved July 062024 2:59am Intractable nausea and vomiting reso lved July 06, 2024 2:59am Potassium (K) deficiency resolved July 06, 2024 2:59am Alcohol abuse inactive June 2:59am Bipolar disorder inactive July 06, 2024 2:59am Cannabis abuse inactive July 062024 2:59am Chronic alcohol abuse inactive Herman uary 2024 2:59am Seizure disorder inactive July 06, 2024 2:59am Tobacco abuse inactive June 2:59am Alcoholic liver disease acute F ebruary 2024 1:17pm Grief reaction acute July 122024 1:17pm Anxiety and depression chronic Fe bru2024 1:17pm Acute hypokalemia resolved 2024 1:17pm Delirium tremens resolved July 12, 2024 1:17pm Hypomagnesemia resolved July 122024 1:17pm Alcohol abuse inactive July 1:17pm Alcohol withdrawal resolved 2024 9:48pm Anemia acute September 17 2:05pm Swelling of lower leg acute Apr il 2024 2:05pm Anxiety and depression chronic Ap ril 2024 2:05pm Hypertension chronic September 17, 2024 2:05pm Anemia acute October 07, 2024 8:38am Hypersomnia acute October 07, 2024 8:38am Low back pain acute October 07 8:38am Epilepsy chronic October 07, 2024 8:38am Right hip pain chronic October 07, 025 8:38am Bilateral lower extremity edema acut e October 15, 2024 2:50pm [facility] Work Phone: 1(877) 436-166010-22-2024 Telephone encounter Note* Telephone Encounter - Lakia Jane - 03/30/2024 10:06 AM EDT noted [id number] Miscellaneous Notes* Telephone Encounter - Lakia Jane - 03/30/2024 10:06 AM EDT noted * Telephone Encounter - Chanel Edgar MA - 03/29/2024 1:52 PM EDT Cancelled. * Telephone Encounter - TAMMY Temple CNP - 03/29/2024 1:51 PM EDT Okay to cancel order. * Telephone Encounter - TAMMY Temple CNP - 03/29/2024 1:51 PM EDT Noted. Please have them reach out when ready and we can re-place the order. * Telephone Encounter - Chanel Edgar MA - 03/29/2024 1:48 PM EDT Spoke to Felton, she is getting caught up on medical bills and cannot have this done until sometime next year. * Telephone Encounter - TAMMY Temple CNP - 03/29/2024 12:17 PM EDT Please reach out to Felton and see if she still plans to get this completed. Thank you. * Telephone Encounter - Lakia Jane - 03/29/2024 9:17 AM EDT Pt given orders for CT-Lung Screen on 02/05/24. Numerous attempts were made to schedule patient. No response from patient to schedule. Okay to cancel orders? documented in this [facility]10-21-2024 Telephone encounter Note* Telephone Encounter - Chanel Edgar MA - 03/29/2024 1:52 PM EDT Cancelled. [id number] Telephone encounter Note* Telephone Encounter - TAMMY Temple CNP - 03/29/2024 1:51 PM EDT Okay to cancel order. [facility] Phone: 1(803) 544-430810-21-2024 Telephone encounter Note* Telephone Encounter - TAMMY Temple CNP - 03/29/2024 1:51 PM EDT Noted. Please have them reach out when ready and we can re-place the order. [id number] Telephone encounter Note* Telephone Encounter - Chanel Edgar MA - 03/29/2024 1:48 PM EDT Spoke to Felton, she is getting caught up on medical bills and cannot have this done until sometime next year. [id number] Telephone encounter Note* Telephone Encounter - TAMMY Temple CNP - 03/29/2024 12:17 PM EDT Please reach out to Felton and see if she still plans to get this completed. Thank you. [place] [id number] Telephone encounter Note* Telephone Encounter - Lakia Jane - 03/29/2024 9:17 AM EDT Pt given orders for CT-Lung Screen on 02/05/24. Numerous attempts were made to schedule patient. No response from patient to schedule. Okay to cancel orders? [id number] Telephone encounter Note* Telephone Encounter - Jasmyn Carrera - 03/02/2024 9:48 AM EDT Medication name: spironolactone (Aldactone) 25 MG tablet [...] prior to picking up the medication: Yes T [id number] Miscellaneous Notes* Telephone Encounter - Jasmyn Carrera - 03/02/2024 9:48 AM EDT Medication name: spironolactone (Aldactone) 25 MG tablet [...] up the medication: Yes documented in this encounterSFisher-[facility] [id number] Evaluation + Plan note* Assessment & Plan Note - TAMMY Asif CNP - 02/05/2024 12:28 PM EDTAssociated Problem(s): Tobacco dependence Encouraged cessation. [facility] [id number] Evaluation + Plan note* Assessment & Plan Note - TAMMY Asif CNP - 02/05/2024 12:28 PM EDTAssociated Problem(s): Anxiety Controlled. Continue Lexapro 20 mg daily [facility] [id number] Miscellaneous Notes* Assessment & Plan Note - TAMMY Asif CNP - 02/05/2024 12:28 PM EDTAssociated Problem(s): Tobacco dependence Encouraged cessation. * Assessment & Plan Note - TAMMY Asif CNP - 02/05/2024 12:28 PM EDTAssociated Problem(s): Anxiety Controlled. Continue Lexapro 20 mg daily * Assessment & Plan Note - TAMMY Asif CNP - 02/05/2024 12:27 PM EDTAssociated Problem(s): Hypertension Controlled. Blood pressure 111/19, continue lisinopril 5 mg daily and spironolactone 25 mg daily * Assessment & Plan Note - TAMMY Asif CNP - 02/05/2024 12:27 PM EDTAssociated Problem(s): Seizure disorder (CMS/HCC) (HCC) Stable. Managed by neurology * Assessment & Plan Note - TAMMY Asif CNP - 02/05/2024 12:27 PM EDTAssociated Problem(s): Mixed anxiety depressive disorder Symptoms controlled on Lexapro 20 mg daily documented in this [facility]08-29-2024 Evaluation + Plan note* Assessment & Plan Note - TAMMY Asif CNP - 02/05/2024 12:27 PM EDTAssociated Problem(s): Hypertension Controlled. Blood pressure 111/19, continue lisinopril 5 mg daily and spironolactone 25 mg daily [facility] [id number] Evaluation + Plan note* Assessment & Plan Note - TAMMY Asif CNP - 02/05/2024 12:27 PM EDTAssociated Problem(s): Seizure disorder (CMS/HCC) (HCC) Stable. Managed by neurology [facility] [id number] Evaluation + Plan note* Assessment & Plan Note - TAMMY Asif CNP - 02/05/2024 12:27 PM EDTAssociated Problem(s): Mixed anxiety depressive disorder Symptoms controlled on Lexapro 20 mg daily [facility] [id number] History of Present illness Narrative* Lilibeth Rm - 02/05/2024 9:40 AM EDT 1) 30 day supply to [facility] in [place] Then send 90 to mail order 2 Monik needs to go over labs Patient was identified by name and Date of . Health Maintenance Addressed with Patient at Visit: MMR- declined Pneumo-declined Hep A-declined Zoster-declined Covid-declined Mammo-pended Lung CT- pended Colon- cologaurd Pap-NEED[facility] AT [facility] CANDIE faxed to Neuro at [place] Dr. Henderson * TAMMY Asif CNP - 02/05/2024 9:40 AM EDT Images from the original note were not included. [facility] [address] [facility] [id number] Dept: [phone] Dept Chief Complaint: Felton Pa is an 53 y.o. 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 Encouraged cessation documented in this [facility]08-29-2024 Instructions* Patient Instructions* TAMMY Asif CNP - 02/05/2024 9:40 AM EDT Please call Central Scheduling at [phone] to schedule your outpatient test Personalized Preventative Plan for Felton Pa - 02/05/2024 Medicare offers a range of preventative health benefits. Some of the tests and screenings are paid in full while others may be subject to a deductible, co- insurance, and / or copay. Some of these benefits include a comprehensive review of your medical history including lifestyle, illnesses that mayrun in your family, and various assessments and [...] Recommendations: A preventive eye exam by an radiation protection specialist is recommended every 1-2 years to screen for glaucoma, cataracts, macular degeneration, and other eye disorders. A preventive dental visit is recommended every 6 months. Try to get at least 150 minutes of exercise per week or 10,000 steps per day on a pedometer. You need 1200-1500mg of calcium and 6487-5725 international units of vitamin D per day. [...] when riding a bicycle or a motorcycle * Attachments The following attachments cannot be sent through Care Everywhere. * High Potassium Diet (Montserratian) documented in this [facility]08-05-2024 Telephone encounter Note* Telephone Encounter - Vanessa Kurtz - 01/12/2024 10:42 AM EDT Patient is out of medication. Medication name: [...] prior to picking up the medication: Yes [facility] [id number] Miscellaneous Notes* Telephone Encounter - Vanessa Kurtz - 01/12/2024 10:42 AM EDT Patient is out of medication. Medication name: [...] up the medication: Yes documented in this encounterSFisher-Titus Medical [id number] Telephone encounter Note* Telephone Encounter - Vanessa Kurtz - 01/12/2024 10:39 AM EDT Message released to patient as written. ----- Message from Lakia Boykin APRN - [employer]OOKKEEPING [employer]ER sent at 01/08/2024 6:53 AM EDT ----- [...] help with anemia. Low fat, low cholesterol diet.Dietary information can be found at https://www.heart.org/en/healthy-living/healthy-eating Patient's further questions if applicable: Patient verbalized understanding. No further questions. Were all questions from office addressed or relayed to the patient from encounter: Yes [facility] [id number] Miscellaneous Notes* Telephone Encounter - Vanessa Kurtz - 01/12/2024 10:39 AM EDT Message released to patient as written. ----- [...] help with anemia. Low fat, low cholesterol diet.Dietary information can be found at https://www.heart.org/en/healthy-living/healthy-eating Patient's further questions if applicable: Patient verbalized understanding. No further questions. Were all questions from office addressed or relayed to the patient from encounter: Yes * Telephone Encounter - Chanel Edgar MA - 01/12/2024 10:27 AM EDT ----- Message from TAMMY Asif CNP sent [...] help with anemia. Low fat, low cholesterol diet.Dietary information can be found at https://www.heart.org/en/healthy-living/healthy-[email or web address] Called pt, no answer and vm is full. * Telephone Encounter - Nicolle Pizarro MA - 01/08/2024 10:59 AM EDT Mailbox full * Telephone Encounter - Nicolle Pizarro MA - 01/08/2024 10:59 AM EDT ----- Message from TAMMY Asif CNP sent [...] help with anemia. Low fat, low cholesterol diet.Dietary information can be found at https://www.heart.org/en/healthy-living/healthy-eating documented in this [facility]08-05-2024 Telephone encounter Note* Telephone Encounter - Chanel Edgar MA - 01/12/2024 10:27 AM EDT ----- Message from TAMMY Asif CNP sent [...] help with anemia. Low fat, low cholesterol diet.Dietary information can be found at https://www.heart.org/en/healthy-living/healthy-[email or web address] Called pt, no answer and vm is full. [id number] Telephone encounter Note* Telephone Encounter - Nicolle Pizarro MA - 01/08/2024 10:59 AM EDT Mailbox full [id number] Telephone encounter Note* Telephone Encounter - Nicolle Pizarro MA - 01/08/2024 10:59 AM EDT ----- Message from Lakia Boykin APRN - [place] sent at 01/08/2024 6:53 AM EDT ----- [...] help with anemia. Low fat, low cholesterol diet.Dietary information can be found at https://www.heart.org/en/healthy-living/healthy-[email or web address] [facility] [id number] Evaluation + Plan note* Assessment & Plan Note - Sree Siegel MD - 01/07/2024 10:32 AM EDTAssociated Problem(s): Anxiety Remission, continue Lexapro 20 mg daily [id number] Evaluation + Plan note* Assessment & Plan Note - Sree Siegel MD - 01/07/2024 10:32 AM EDTAssociated Problem(s): Hypertension Controlled, continue lisinopril 5 mg and spironolactone 25 mg. [facility] [id number] Miscellaneous Notes* Assessment & Plan Note - Sree Siegel MD - 01/07/2024 10:32 AM EDTAssociated Problem(s): Anxiety Remission, continue Lexapro 20 mg daily * Assessment & Plan Note - Sree Siegel MD - 01/07/2024 10:32 AM EDT Associated Problem(s): Hypertension Controlled, continue lisinopril 5 mg and spironolactone 25 mg. * Assessment & Plan Note - Sree Siegel MD - 01/07/2024 10:31 AM EDT Associated Problem(s): Coronary artery disease 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 angina pectoris Owen, has had no recent angina * Assessment & Plan Note - Sree Siegel MD - 01/07/2024 10:30 AM EDT Associated Problem(s): Seizure disorder (CMS/HCC) (HCC) Owen, does not remember when her last seizure was currently is not able to drive. Continues on a gram 100 mg daily documented in this [facility]07-31-2024 Evaluation + Plan note* Assessment & Plan Note - Sree Siegel MD - 01/07/2024 10:31 AM EDT Associated Problem(s): Coronary artery disease 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 angina pectoris Owen, has had no recent angina [facility] [id number] Evaluation + Plan note* Assessment & Plan Note - Sree Siegel MD - 01/07/2024 10:30 AM EDTAssociated Problem(s): Seizure disorder (CMS/HCC) (HCC) Owen, does not remember when her last seizure was currently is not able to drive. Continues on a gram 100 mg daily [facility] [id number] History of Present illness Narrative* Nicolle Pizarro MA - 01/07/2024 9:00 AM EDT Patient verified by last name and date of . * Sree Siegel MD - 01/07/2024 9:00 AM EDT Images from the original note were not included. 01/07/2024 Felton Pa (: 1970) is a 53 y.o. female , Established patient, here for evaluation of the following chief complaint(s): New Patient, Establish Care (Saw Dr Nichols in [place] ), Medication Check, and Health Maintenance (Hiv/hep c screening- refuse/Colonoscopy- refuse/Mmr vaccine- done as child/Hep b vaccine- refuse/Pap/izabela- not done in years will sched // ) ASSESSMENT/PLAN: 1. Seizure disorder (CMS/HCC) (HCC) Assessment & Plan: Owen, does not remember when her last seizure was currently is not able to drive. Continues on a gram 100 mg daily Orders: - Comprehensive metabolic panel 2. Primary hypertension Assessment & Plan: Controlled, continue lisinopril 5 mg and spironolactone 25 mg. Orders: - Comprehensive metabolic panel 3. Coronary artery disease 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 angina pectoris Assessment & Plan: [...] signature was used to authenticate this note. Sree Siegel MD 01/07/2024 10:33 AM documented in this encounterSFisher-Titus Medical [id number] Telephone encounter Note* Telephone Encounter - Hugo Corrales - 12/23/2023 11:29 AM EDT Name of caller: Felton Relation to patient: patient Contact phone number: [phone] Appointment scheduled with: Dr. Siegel Appointment date & time: 01/07/24 9:00 Reason for visit (are you having any symptoms) : [employer] wellness, no concerns Transportation issues/ concerns: no Special accommodations? ( wheel chair, etc) : no Current medications: yes Any refills need: yes Any chronic conditions the provider should be aware of: epilepsy [facility] [id number] Miscellaneous Notes* Telephone Encounter - Hugo Corrales - 12/23/2023 11:29 AM EDT Name of caller: Felton Relation to patient: patient Contact phone number: [phone] Appointment scheduled with: Dr. Siegel Appointment date & time: 01/07/24 9:00 Reason for visit (are you having any symptoms) : [employer] wellness, no concerns Transportation issues/ concerns: no Special accommodations? ( wheel chair, etc) : no Current medications: yes Any refills need: yes Any chronic conditions the provider should be aware of: epilepsy [facility]* Diagnosis Onset Date Resolution Status Multiple joint pain acute Anxiety and depression chron ic Epilepsy chronic Hypertension chronic Migraine without aura and wi thout status migrainosus, not intractable acute Epilepsy [facility] Work Phone: Evaluation note* Diagnosis Onset Date Resolution Status Breast cancer screening acut e Pain in joint involving right pelvic region and thigh chronic [facility] Work Phone: Evaluation note* Diagnosis Onset Date Resolution Status Breast cancer screening acut e Pain in joint involving right pelvic region and thigh chronic Epilepsy [facility] Work Phone: Evaluation note* Diagnosis Onset Date Resolution Status Trochanteric bursitis, right hip acute Myalgia acute Epilepsy chronic Right hip pain [facility] Work Phone: Evaluation note* Diagnosis Onset Date Resolution Status Myalgia acute Epilepsy chronic Right hip pain chronic Health care maintenance acut e Anxiety and depression chron ic Hypertension chronic Right hip pain [facility] Work Phone: Evaluation note* Diagnosis Seizure disorder (CMS/HCC) (HCC)- Primary Unspecified epilepsy without mention of intractable epilepsy Primary hypertension Unspecified essential hypertension Coronary artery disease 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 angina pectoris Anxiety Anxiety state, unspecified Screening for diabetes mellitus Screening for deficiency anemia Screening for other and unspecified deficiency anemia [facility]* Diagnosis Colon cancer screening- Primary [...] of intractable epilepsy [facility]* Diagnosis Primary hypertension Unspecified essential hypertension [facility]* Diagnosis Seizure disorder (CMS/HCC) (HCC)- Primary Unspecified epilepsy without mention of intractable epilepsy Primary hypertension Unspecified essential hypertension Coronary artery disease 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 angina pectoris Anxiety Anxiety state, unspecified Screening for diabetes mellitus Screening for deficiency anemia Screening for other and unspecified deficiency anemia Colon cancer screening- Primary Special screening for [...] Unspecified epilepsy without mention of intractable epilepsy Alcohol withdrawal syndrome with complication (HCC)- Primary Alcohol withdrawal syndrome without complication (HCC) Nausea Nausea alone Dehydration Hypokalemia Hypopotassemia Severe alcohol use disorder (HCC) Thrombocytopenia (HCC) Unspecified thrombocytopenia Transaminitis Nonspecific elevation of levels of transaminase or lactic acid dehydrogenase (LDH) [facility] Diagnosis Seizure disorder (CMS/HCC) (HCC)- Primary Unspecified epilepsy without mention of intractable epilepsy Primary hypertension Unspecified essential hypertension Coronary artery disease 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 angina pectoris Anxiety Anxiety state, unspecified Screening for diabetes mellitus Screening for deficiency anemia Screening for other and unspecified deficiency anemia Colon cancer screening- Primary Special screening for [...] Unspecified epilepsy without mention of intractable epilepsy Shortness of breath- Primary Leg swelling Swelling of limb Smoker Tobacco use disorder [facility]* Diagnosis Seizure disorder (CMS/HCC) (HCC)- Primary Unspecified epilepsy without mention of intractable epilepsy Primary hypertension Unspecified essential hypertension Coronary artery disease 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 angina pectoris Anxiety Anxiety state, unspecified Screening for diabetes mellitus Screening for deficiency anemia Screening for other and unspecified deficiency anemia Colon cancer screening- Primary Special screening for [...] Unspecified epilepsy without mention of intractable epilepsy Urinary tract infection without hematuria, site unspecified- Primary Diarrhea, unspecified type Hypokalemia Hypopotassemia Calculus of gallbladder without cholecystitis without obstruction [facility]* Diagnosis Lower abdominal pain- Primary Abdominal pain, other specified site Nausea and vomiting, unspecified vomiting type Diarrhea, unspecified type Hypokalemia Hypopotassemia documented in this encounter [facility] Work Phone: [facility] Work [facility]: Hospital Discharge instructions* Attachments The following attachments cannot be sent through Care Everywhere. * Dependent Edema Discharge Instructions ([place]) documented in this [facility] Discharge instructions* Attachments The following attachments cannot be sent through Care Everywhere. * Diarrhea, Adult ED ([place]) * Hypokalemia ([place]) * Urinary Tract Infection, Adult ED ([place]) * Gallstones ED ([place]) documented in this [facility] Discharge instructions* Attachments The following attachments cannot be sent through Care Everywhere. * Diarrhea, Adult ED ([place]) * Abdominal Pain, Adult ED ([place]) * Nausea and Vomiting, Adult ED ([place]) * Hypokalemia Discharge Instructions ([place]) [facility]: Reason for referral (narrative)* Consultation (Routine) - Pending Review Specialty Diagnoses / Procedures Referred By Tony ramon Referred To Contact Obstetrics and Gynecology Diagnoses Annual physical exam Procedures OK OFFICE/OUTPATIENT [facility] 60 MINUTES Lakia Boykin APRN - CNP [address] [place] [address] [place] [address] [facility] Br Analytical Consultant [address] [place] [address] Referral ID Status Reason Start Date Expiration Date Visits Requested Visits Authorized [id number] Pending Review Specialty Services Required 02/05/2024 02/04/2025 1 1 * Imaging (Routine) - Pending Review Specialty Diagnoses / Procedures Referred By Contac t Referred To Contact Radiology Diagnoses Tobacco dependence Nicotine dependence, cigarettes, uncomplicated Procedures CT lung screening low dose Lakia Boykin APRN - CNP [address] [place] [address] [place] [address] Referral ID Status Reason Start Date Expiration Date V isits Requested Visits Authorized [id number] Pending Review 02/05/2024 02/04/2025 1 1 [facility] Purpose Family History No Family History Records Found Relationship Condition Age at Onset Recorded Date/T ashanti Not Specified Cerebral aneurysm Unknown aunt Malignant neoplasm of breast Unknown Disorder of thyroid Unknown father Malignant neoplasm Unknown grandfather Malignant neoplasm Unknown mother Diabetes mellitus Unknown Hypertension Unknown grandmother Myocardial infarction Unknown Cardiac disease Unknown Malignant neoplasm Unknown Hypercholesterolemia Unknown Advance Directives No Advanced Directives Records Found Advance Directive Response Recorded Date/ Time Advance Directives No March 14, 2015 7:32pm Living Will No March 21 9:22am Power of Business Services Administrator Yes March 21, 2021 9:22am Advance Directive Response Recorded Date/ Time Advance Directives No March 14, 2015 6:32pm Living Will No March 21 8:22am Power of Business Services Administrator Yes March 21, 2021 8:22am Advance Directive Response Recorded Date/ Time Advance Directives No September 07 1:11pm Living Will Yes July 06 5:02am Do you have a Healthcare Pow er of Business Services Administrator? Yes July 06, 2024 5:02am Name of Medical Power of Business Services Administrator aliyah nick calibrinda July 06, 2024 5:02am Living Will No July 27 11:32pm Do you have a Healthcare Pow er of Business Services Administrator? No July 27, 2024 11:32pm Advance Directive Response Recorded Date/ Time Living Will No March 21 9:22am Do you have a Healthcare Pow er of Business Services Administrator? Yes March 21, 2021 9:22am Advance Directives No September 07 1:11pm Living Will Yes July 06 5:02am Do you have a Healthcare Pow er of Business Services Administrator? Yes July 06, 2024 5:02am Name of Medical Power of Business Services Administrator aliyah boyd July 06, 2024 5:02am Living Will No July 27 11:32pm Do you have a Healthcare Pow er of Business Services Administrator? No July 27, 2024 11:32pm Do you have a Healthcare Pow er of Business Services Administrator? No October 02, 2024 4:33am Advance Directive Response Recorded Date/ Time Living Will No March 21 9:22am Do you have a Healthcare Power of Business Services Administrator? Yes March 21, 2021 9:22am Advance Directives No September 07 1:11pm Do you have a Healthcare Power of Business Services Administrator? No October 02, 2024 4:33am Chief Complaint and Reason for Visit Chief Complaint FU R/S FOLLOW UP Reason for Visit Multiple joint pain Anxiety and depression Epilepsy Hypertension Migraine without aura and without status migrainosus, not intractable Epilepsy Chief Complaint lower back pain movi ng to the front E ORDERS Reason for Visit Breast cancer screen ing Pain in joint involving right pelvic region and thigh Chief Complaint lower back pain movi ng to the front E ORDERS 4 M FU EORDER/ ORDER SCANNED WELL Reason for Visit Breast cancer screen ing Pain in joint involving right pelvic region and thigh Epilepsy Chief Complaint RIGHT HIP 6 M FU SCREENING Reason for Visit Trochanteric bursiti s, right hip Myalgia Epilepsy Right hip pain Chief Complaint 4 M FU MED CHECK FOLLOW UP Reason for Visit Myalgia Epilepsy Right hip pain Health care maintenance Anxiety and depression Hypertension Right hip pain Chief Complaint Admit Date ACUTE ETOH W/D, CHRONIC ETOH ABUSE, INTR ACTABLE July 06, 2024 2:59am ACUTE ETOH W/D, CHRONIC ETOH ABUSE, INTR ACTABLE July 07, 2024 9:15am ACUTE ETOH W/D, CHRONIC ETOH ABUSE, INTR ACTABLE July 08, 2024 1:39pm ACUTE ETOH W/D, CHRONIC ETOH ABUSE, INTR ACTABLE July 09, 2024 2:07pm ACUTE ETOH W/D, CHRONIC ETOH ABUSE, INTR ACTABLE July 10, 2024 4:28pm FOLLOW UP July 12, 2024 1 :17pm ETOH WITHDRAWL July 27, 2024 9:48pm ETOH WITHDRAWL July 28, 2024 6:37am ETOH WITHDRAWL July 29, 2024 5:53pm ETOH WITHDRAWL July 30, 2024 1:05pm ACUTE H[facility]P [facility] September 17, 2024 2:05pm Reason for Visit Admit Date Acquired hyperbilirubinemia June 2:59am Leukopenia July 06, 2024 2 :59am Thrombocytopenia July 06, 2024 2 :59am Acute hypokalemia July 06, 2024 2 :59am Alcohol withdrawal July 06, 2024 2 :59am Alcoholic ketoacidosis July 06 2:59am Delirium tremens July 06, 2024 2 :59am Fever July 06, 2024 2 :59am Hypomagnesemia July 06, 2024 2 :59am Intractable nausea and vomiting July 06, 2024 2:59am Potassium (K) deficiency July 06, 2:59am Alcohol abuse July 06, 2024 2 :59am Bipolar disorder July 06, 2024 2 :59am Cannabis abuse July 06, 2024 2 :59am Chronic alcohol abuse July 06, 2024 2:59am Seizure disorder July 06, 2024 2 :59am Tobacco abuse July 06, 2024 2 :59am Alcoholic liver disease July 12 1:17pm Grief reaction July 12, 2024 1 :17pm Anxiety and depression July 12 1:17pm Acute hypokalemia July 12, 2024 1 :17pm Delirium tremens July 12, 2024 1 :17pm Hypomagnesemia July 12, 2024 1 :17pm Alcohol abuse July 12, 2024 1 :17pm Alcohol withdrawal July 27, 2024 9:48pm Anemia September 17, 2024 2:0 5pm Swelling of lower leg September 17, 2024 2 :05pm Anxiety and depression September 17, 2024 2:05pm Hypertension September 17, 2024 2:0 5pm Chief Complaint Admit Date ACUTE ETOH W/D, CHRONIC ETOH ABUSE, INTR ACTABLE July 06, 2024 2:59am ACUTE ETOH W/D, CHRONIC ETOH ABUSE, INTR ACTABLE July 07, 2024 9:15am ACUTE ETOH W/D, CHRONIC ETOH ABUSE, INTR ACTABLE July 08, 2024 1:39pm ACUTE ETOH W/D, CHRONIC ETOH ABUSE, INTR ACTABLE July 09, 2024 2:07pm ACUTE ETOH W/D, CHRONIC ETOH ABUSE, INTR ACTABLE July 10, 2024 4:28pm FOLLOW UP July 12, 2024 1 :17pm ETOH WITHDRAWL July 27, 2024 9:48pm ETOH WITHDRAWL July 28, 2024 6:37am ETOH WITHDRAWL July 29, 2024 5:53pm ETOH WITHDRAWL July 30, 2024 1:05pm ACUTE HOSP [facility] September 17, 2024 2:05pm Edema October 02, 2024 4:2 8am 9 M FU October 07, 2024 8:38am E-ORDER October 07, 2024 9:48am Reason for Visit Admit Date Acquired hyperbilirubinemia June 2:59am Leukopenia July 06, 2024 2 :59am Thrombocytopenia July 06, 2024 2 :59am Acute hypokalemia July 06, 2024 2 :59am Alcohol withdrawal July 06, 2024 2 :59am Alcoholic ketoacidosis July 06 2:59am Delirium tremens July 06, 2024 2 :59am Fever July 06, 2024 2 :59am Hypomagnesemia July 06, 2024 2 :59am Intractable nausea and vomiting July 06, 2024 2:59am Potassium (K) deficiency July 06, 025 2:59am Alcohol abuse July 06, 2024 2 :59am Bipolar disorder July 06, 2024 2 :59am Cannabis abuse July 06, 2024 2 :59am Chronic alcohol abuse July 06, 2024 2:59am Seizure disorder July 06, 2024 2 :59am Tobacco abuse July 06, 2024 2 :59am Alcoholic liver disease July 12 1:17pm Grief reaction July 12, 2024 1 :17pm Anxiety and depression July 12 1:17pm Acute hypokalemia July 12, 2024 1 :17pm Delirium tremens July 12, 2024 1 :17pm Hypomagnesemia July 12, 2024 1 :17pm Alcohol abuse July 12, 2024 1 :17pm Alcohol withdrawal July 27, 2024 9:48pm Anemia September 17, 2024 2:0 5pm Swelling of lower leg September 17, 2024 2 :05pm Anxiety and depression September 17, 2024 2:05pm Hypertension September 17, 2024 2:0 5pm Anemia October 07, 2024 8:38am Hypersomnia October 07, 2024 8:38am Low back pain October 07, 2024 8:38am Epilepsy October 07, 2024 8:38am Right hip pain October 07, 2024 8:38am Chief Complaint Admit Date ACUTE ETOH W/D, CHRONIC ETOH ABUSE, INTR ACTABLE July 06, 2024 2:59am ACUTE ETOH W/D, CHRONIC ETOH ABUSE, INTR ACTABLE July 07, 2024 9:15am ACUTE ETOH W/D, CHRONIC ETOH ABUSE, INTR ACTABLE July 08, 2024 1:39pm ACUTE ETOH W/D, CHRONIC ETOH ABUSE, INTR ACTABLE July 09, 2024 2:07pm ACUTE ETOH W/D, CHRONIC ETOH ABUSE, INTR ACTABLE July 10, 2024 4:28pm FOLLOW UP July 12, 2024 1 :17pm ETOH WITHDRAWL July 27, 2024 9:48pm ETOH WITHDRAWL July 28, 2024 6:37am ETOH WITHDRAWL July 29, 2024 5:53pm ETOH WITHDRAWL July 30, 2024 1:05pm ACUTE HOSP [facility] September 17, 2024 2:05pm Edema October 02, 2024 4:2 8am 9 M October 07, 2024 8:38am E-ORDER October 07, 2024 9:48am [facility] ER October 15, 2024 2:50pm Hypersomnia October 25, 2024 7:43p m Reason for Visit Admit Date Acquired hyperbilirubinemia June 2:59am Leukopenia July 06, 2024 2 :59am Thrombocytopenia July 06, 2024 2 :59am Acute hypokalemia July 06, 2024 2 :59am Alcohol withdrawal July 06, 2024 2 :59am Alcoholic ketoacidosis July 06 2:59am Delirium tremens July 06, 2024 2 :59am Fever July 06, 2024 2 :59am Hypomagnesemia July 06, 2024 2 :59am Intractable nausea and vomiting July 06, 2024 2:59am Potassium (K) deficiency July 06, 2 025 2:59am Alcohol abuse July 06, 2024 2 :59am Bipolar disorder July 06, 2024 2 :59am Cannabis abuse July 06, 2024 2 :59am Chronic alcohol abuse July 06, 2024 2:59am Seizure disorder July 06, 2024 2 :59am Tobacco abuse July 06, 2024 2 :59am Alcoholic liver disease July 12 1:17pm Grief reaction July 12, 2024 1 :17pm Anxiety and depression July 12 1:17pm Acute hypokalemia July 12, 2024 1 :17pm Delirium tremens July 12, 2024 1 :17pm Hypomagnesemia July 12, 2024 1 :17pm Alcohol abuse July 12, 2024 1 :17pm Alcohol withdrawal July 27, 2024 9:48pm Anemia September 17, 2024 2:0 5pm Swelling of lower leg September 17, 2024 2 :05pm Anxiety and depression September 17, 2024 2:05pm Hypertension September 17, 2024 2:0 5pm Anemia October 07, 2024 8:38am Hypersomnia October 07, 2024 8:38am Low back pain October 07, 2024 8:38am Epilepsy October 07, 2024 8:38am Right hip pain October 07, 2024 8:38am Bilateral lower extremity edema October 15, 2024 2:50pm Chief Complaint Admit Date ACUTE ETOH W/D, CHRONIC ETOH ABUSE, INTR ACTABLE July 06, 2024 2:59am ACUTE ETOH W/D, CHRONIC ETOH ABUSE, INTR ACTABLE July 09, 2024 2:07pm ACUTE ETOH W/D, CHRONIC ETOH ABUSE, INTR ACTABLE July 10, 2024 4:28pm FOLLOW UP July 12, 2024 1 :17pm ETOH WITHDRAWL July 27, 2024 9:48pm ETOH WITHDRAWL July 28, 2024 6:37am ETOH WITHDRAWL July 29, 2024 5:53pm ETOH WITHDRAWL July 30, 2024 1:05pm ACUTE HOSP [facility] September 17, 2024 2:05pm Edema October 02, 2024 4:2 8am 9 M FU October 07, 2024 8:38am E-ORDER October 07, 2024 9:48am [facility] FU October 15, 2024 2:50pm Hypersomnia October 25, 2024 7:43p m BILAT LEG SWELLING November 02, 2024 8:44a m Chief Complaint Admit Date ACUTE HOSP [facility] September 17, 2024 2:05pm Edema October 02, 2024 4:2 8am 9 M FU October 07, 2024 8:38am E-ORDER October 07, 2024 9:48am [facility] FU October 15, 2024 2:50pm Hypersomnia October 25, 2024 7:43p m BILAT LEG SWELLING November 02, 2024 8:44a m BLE SWELLING November 02, 2024 8:51a m CARDIAC MURMUR November 24, 2024 12:5 6pm 3 M FU December 07, 2024 8:07a m EORDERS December 07, 2024 8:50a m G40.909 December 29, 2024 1:21 pm 2 M FU January 03, 2025 7:31 am Reason for Visit Admit Date Swelling of lower leg September 17, 2024 2 :05pm Anemia September 17, 2024 2:0 5pm Anxiety and depression September 17, 2024 2:05pm Hypertension September 17, 2024 2:0 5pm Hypersomnia October 07, 2024 8:38am Low back pain October 07, 2024 8:38am Anemia October 07, 2024 8:38am Epilepsy October 07, 2024 8:38am Right hip pain October 07, 2024 8:38am Bilateral lower extremity edema October 15, 2024 2:50pm Low back pain December 07, 2024 8:07a m Epilepsy December 07, 2024 8:07a m Right hip pain December 07, 2024 8:07a m Cholelithiasis January 03, 2025 7:31 am History of UTI January 03, 2025 7:31 am Potassium (K) deficiency January 03, 2025 7:31am Alcoholic liver disease January 03, 2025 7:31am Anemia January 03, 2025 7:31 am Anxiety and depression January 03, 2025 7 :31am Hypertension January 03, 2025 7:31 am Additional Source Comments INFORMATION SOURCE (unrecogn ized section and content) DATE CREATED AUTHOR 12/03/2017 [facility] ([place]) DATE CREATED AUTHOR AUTHOR'S ORGANIZ ATION 12/03/2017 [facility] DATE CREATED AUTHOR AUTHOR'S ORGANIZ ATION 03/21/2019 [facility] ([place]) DATE CREATED AUTHOR AUTHOR'S ORGANIZ ATION 12/25/2024 [facility] DATE CREATED AUTHOR AUTHOR'S ORGANIZ ATION 12/25/2024 [facility] DATE CREATED AUTHOR AUTHOR'S ORGANIZ ATION 02/25/2025 [facility] DATE CREATED AUTHOR AUTHOR'S ORGANIZ ATION 04/16/2025 [facility] Goals (unrecognized section and content) Goals may be documented in a n alternate sectionGoals may be documented in an alternate sectionGoals may be documented in an alternate sectionGoals may be documented in an alternate sectionGoals may be documented in an alternate sectionGoals may be documented in an alternate section Care Teams (unrecognized sec tion and content) Team Status: Active Member Role Status Dates Ezra Clancy COUNCIL MEMBER, COUNCIL MEMBER-C Family Provider Activ e Dr. Callie Nichols MD Primary Care Provider Active Team Status: Inactive Member Role Status Dates Dr. Callie Nichols MD Primary Care Provider Active Dr. Lorne Henderson MD Attending Provider, Referring Provider Active Team Status: Inactive Member Role Status Dates Dr. Callie Nichols MD Primary Care Provider, Refer ring Provider Active Nick Cisneros MD Attending Provider Active Team Status: Inactive Member Role Status Dates Dr. Callie Nichols MD Primary Care Dewayne woodruff, Attending Provider, Referring Provider Active Team Status: Inactive Member Role Status Dates Dr. Callie Nichols MD Primary Care Provider, Atten ding Provider Active Last Inserter Relationship Specialty Start Date End Date Sree Siegel MD [address] [facility] [place] [address] PCP - General Family Medicine 01/07/24 Last Inserter Relationship Specialty Start Date End Date Sree Siegel MD [address] [place], [place] [address] [address] PCP - General Family Medicine 01/07/24 Last Inserter Relationship Specialty Start Date End Date Sree Siegel MD [address] [facility] [place] [address] PCP - General Family Medicine 01/07/24 Last Inserter Relationship Specialty Start Date End Date Sree Siegel MD [address] [facility] [place] [address] PCP - General Family Medicine 01/07/24 Last Inserter Relationship Specialty Start Date End Date Sree Siegel MD [address] [place], [place] [address] [address] PCP - General Family Medicine 01/07/24 Last Inserter Relationship Specialty Start Date End Date Sree Siegel MD [address] [facility] [place] [address] PCP - General Family Medicine 01/07/24 Last Inserter Relationship Specialty Start Date End Date Callie Nichols [address] [facility] [address] [place] [address] PCP - General Internal Medicine 08/11/24 Last Inserter Relationship Specialty Start Date End Date Callie Nichols [address] [facility] [address] [place] [address] PCP - General Internal Medicine 08/11/24 Team Status: Active Member Role Status Dates Dr. Callie Nichols MD Primary Care Provider Active Team Status: Inactive Member Role Status Dates Dr. Callie Nichols MD Primary Care Provider Active Start: July 06, 2024 End: July 10, 2024 Dr. Oscar Ftizgerald , Emergency Provider Active Start: July 06, 2024 End: July 10, 2024 Dr. Riley Moura , Admit Provider Active Start: July 06, 2024 End: July 10, 2024 Dr. Riley Moura DO Other Provider Active Start: July 06, 2024 End: July 10, 2024 Dr. Jana Holden , Attending Provider Active S tart: July 06, 2024 End: July 10, 2024 Team Status: Active Member Role Status Dates Dr. Callie Nichols MD Primary Care Provider Active Start: July 07, 2024 Dr. Oscar Fitzgerald , Emergency Provider Active Start: July 07, 2024 Dr. Riley Moura DO Admit Provider Active Start: July 07, 2024 Dr. Riley Moura DO Other Provider Active Start: July 07, 2024 Dr. Jana Holden , Attending Provider Active S tart: July 07, 2024 Dr. Jana Holden , Other Provider Active Start : July 07, 2024 Team Status: Active Member Role Status Dates Dr. Callie Nichols MD Primary Care Provider Active Start: July 08, 2024 Dr. Oscar Fitzgerald , Emergency Provider Active Start: July 08, 2024 Dr. Riley Moura DO Admit Provider Active Start: July 08, 2024 Dr. Riley Moura DO Other Provider Active Start: July 08, 2024 Dr. Jana Holden , Attending Provider Active S tart: July 08, 2024 Dr. Jana Holden , Other Provider Active Start : July 08, 2024 Team Status: Active Member Role Status Dates Dr. Callie Nichols MD Primary Care Provider Active Start: July 09, 2024 Dr. Oscar Fitzgerald , Emergency Provider Active Start: July 09, 2024 Dr. Riley Moura DO Admit Provider Active Start: July 09, 2024 Dr. Riley Moura DO Other Provider Active Start: July 09, 2024 Dr. Jana Holden , Attending Provider Active S tart: July 09, 2024 Dr. Jana Holden DO Other Provider Active Start : July 09, 2024 Team Status: Active Member Role Status Dates Dr. Callie Nichols MD Primary Care Provider Active Start: July 10, 2024 Dr. Oscar Fitzgerald DO Emergency Provider Active Start: July 10, 2024 Dr. Riley Moura DO Admit Provider Active Start: July 10, 2024 Dr. Riley Moura DO Other Provider Active Start: July 10, 2024 Dr. Jana Holden DO Attending Provider Active S tart: July 10, 2024 Dr. Jana Holden DO Other Provider Active Start : July 10, 2024 Team Status: Inactive Member Role Status Dates Dr. Callie Nichols MD Primary Care Provider Active Start: July 12, 2024 End: July 12, 2024 Dr. Callie Nichols MD Attending Provider Active Start: July 12, 2024 End: July 12, 2024 Dr. Callie Nichols MD Referring Provider Active Start: July 12, 2024 End: July 12, 2024 Team Status: Inactive Member Role Status Dates Dr. Callie Nichols MD Primary Care Provider Active Start: July 27, 2024 End: July 30, 2024 Dr. Ryder Portillo DO Emergency Provider Active Start: July 27, 2024 End: July 30, 2024 Dr. Raina Palomares MD Admit Provider Active St art: July 27, 2024 End: July 30, 2024 Dr. Raina Palomares MD Other Provider Active St art: July 27, 2024 End: July 30, 2024 Dr. Norbert Jansen MD Attending Provider Active Start: July 27, 2024 End: July 30, 2024 Team Status: Active Member Role Status Dates Dr. Callie Nichols MD Primary Care Provider Active Start: July 28, 2024 Dr. Ryder Portillo DO Emergency Provider Active Start: July 28, 2024 Dr. Raina Palomares MD Admit Provider Active St art: July 28, 2024 Dr. Raina Palomares MD Other Provider Active St art: July 28, 2024 Dr. Norbert Jansen MD Attending Provider Active Start: July 28, 2024 Team Status: Active Member Role Status Dates Dr. Callie Nichols MD Primary Care Provider Active Start: July 29, 2024 Dr. Ryder Portillo DO Emergency Provider Active Start: July 29, 2024 Dr. Raina Palomares MD Admit Provider Active St art: July 29, 2024 Dr. Raina Palomares MD Other Provider Active St art: July 29, 2024 Dr. Norbert Jansen MD Attending Provider Active Start: July 29, 2024 Dr. Norbert Jansen MD Other Provider Active Sta rt: July 29, 2024 Team Status: Active Member Role Status Dates Dr. Callie Nichols MD Primary Care Provider Active Start: July 30, 2024 Dr. Ryder Portillo DO Emergency Provider Active Start: July 30, 2024 Dr. Raina Palomares MD Admit Provider Active St art: July 30, 2024 Dr. Raina Palomares MD Other Provider Active St art: July 30, 2024 Dr. Norbert Jansen MD Attending Provider Active Start: July 30, 2024 Dr. Norbert Jansen MD Other Provider Active Sta rt: July 30, 2024 Team Status: Inactive Member Role Status Dates Dr. Callie Nichols MD Primary Care Provider Active Start: September 17, 2024 End: September 17, 2024 Dr. Callie Nichols MD Referring Provider Active Start: September 17, 2024 End: September 17, 2024 Hugo WORKMAN PA Attending Provider Active St art: September 17, 2024 End: September 17, 2024 Team Status: Inactive Member Role Status Dates Dr. Callie Nichols MD Primary Care Provider Active Start: September 17, 2024 End: September 17, 2024 Hugo WORKMAN PA Attending Provider Active St art: September 17, 2024 End: September 17, 2024 JACINTA Lofton Referring Provider Active St art: September 17, 2024 End: September 17, 2024 Team Status: Inactive Member Role Status Dates Dr. Callie Nichols MD Primary Care Provider Active Start: October 02, 2024 End: October 02, 2024 Dr. Chris Roberts MD Attending Provider Active Start: October 02, 2024 End: October 02, 2024 Dr. Chris Roberts MD Emergency Provider Active Start: October 02, 2024 End: October 02, 2024 Team Status: Inactive Member Role Status Dates Dr. Callie Nichols MD Primary Care Provider Active Start: October 07, 2024 End: October 07, 2024 Dr. Callie Nichols MD Referring Provider Active Start: October 07, 2024 End: October 07, 2024 Dr. Lorne Henderson MD Attending Provider Active Start: October 07, 2024 End: October 07, 2024 Team Status: Inactive Member Role Status Dates Dr. Callie Nichols MD Primary Care Provider Active Start: October 07, 2024 End: October 07, 2024 Dr. Lorne Henderson MD Attending Provider Active Start: October 07, 2024 End: October 07, 2024 Dr. Lorne Henderson MD Referring Provider Active Start: October 07, 2024 End: October 07, 2024 Team Status: Inactive Member Role Status Dates Dr. Callie Nichols MD Primary Care Provider Active Start: October 15, 2024 End: October 15, 2024 Dr. Callie Nichols MD Referring Provider Active Start: October 15, 2024 End: October 15, 2024 JACINTA Lofton Attending Provider Active St art: October 15, 2024 End: October 15, 2024 Team Status: Inactive Member Role Status Dates Dr. Callie Nichols MD Primary Care Provider Active Start: October 25, 2024 End: October 25, 2024 MICKI Lowery Attending Provider Active S tart: October 25, 2024 End: October 25, 2024 MICKI Lowery Referring Provider Active S tart: October 25, 2024 End: October 25, 2024 Team Status: Inactive Member Role Status Dates Dr. Callie Nichols MD Primary Care Provider Active Start: November 02, 2024 End: November 02, 2024 JACINTA Lofton Attending Provider Active St art: November 02, 2024 End: November 02, 2024 JACINTA Lofton Referring Provider Active St art: November 02, 2024 End: November 02, 2024 Last Inserter Relationship Specialty Start Date End Date Callie Nichols [address] [place] [id number] PCP - General Internal Medicine 08/11/24 Team Status: Active Member Role/Relationship Status Dates Dr. Callie Nichols MD Primary Care Provider Active Team Status: Inactive Member Role/Relationship Status Dates Dr. Callie Nichols MD Primary Care Provider Active Start: September 17, 2024 End: September 17, 2024 Dr. Callie Nichols MD Referring Provider Active Start: September 17, 2024 End: September 17, 2024 JACINTA Lofton Attending Provider Active St art: September 17, 2024 End: September 17, 2024 Team Status: Inactive Member Role/Relationship Status Dates Dr. Callie Nichols MD Primary Care Provider Active Start: September 17, 2024 End: September 17, 2024 JACINTA Lofton Attending Provider Active St art: September 17, 2024 End: September 17, 2024 JACINTA Lofton Referring Provider Active St art: September 17, 2024 End: September 17, 2024 Team Status: Inactive Member Role/Relationship Status Dates Dr. Callie Nichols MD Primary Care Provider Active Start: October 02, 2024 End: October 02, 2024 Dr. Chris Roberts MD Attending Provider Active Start: October 02, 2024 End: October 02, 2024 Dr. Chris Roberts MD Emergency Provider Active Start: October 02, 2024 End: October 02, 2024 Team Status: Inactive Member Role/Relationship Status Dates Dr. Callie Nichols MD Primary Care Provider Active Start: October 07, 2024 End: October 07, 2024 Dr. Callie Nichols MD Referring Provider Active Start: October 07, 2024 End: October 07, 2024 Dr. Lorne Henderson MD Attending Provider Active Start: October 07, 2024 End: October 07, 2024 Team Status: Inactive Member Role/Relationship Status Dates Dr. Callie Nichols MD Primary Care Provider Active Start: October 07, 2024 End: October 07, 2024 Dr. Lorne Henderson MD Attending Provider Active Start: October 07, 2024 End: October 07, 2024 Dr. Lorne Henderson MD Referring Provider Active Start: October 07, 2024 End: October 07, 2024 Team Status: Inactive Member Role/Relationship Status Dates Dr. Callie Nichols MD Primary Care Provider Active Start: October 15, 2024 End: October 15, 2024 Dr. Callie Nichols MD Referring Provider Active Start: October 15, 2024 End: October 15, 2024 Hugo WORKMAN PA Attending Provider Active St art: October 15, 2024 End: October 15, 2024 Team Status: Inactive Member Role/Relationship Status Dates Dr. Callie Nichols MD Primary Care Provider Active Start: October 25, 2024 End: October 25, 2024 MICKI Lowery Attending Provider Active S tart: October 25, 2024 End: October 25, 2024 MICKI Lowery Referring Provider Active S tart: October 25, 2024 End: October 25, 2024 Team Status: Inactive Member Role/Relationship Status Dates Dr. Callie Nichols MD Primary Care Provider Active Start: November 02, 2024 End: November 02, 2024 Hugo WORKMAN PA Attending Provider Active St art: November 02, 2024 End: November 02, 2024 Hugo WORKMAN PA Referring Provider Active St art: November 02, 2024 End: November 02, 2024 Team Status: Active Member Role/Relationship Status Dates Dr. Eric Rivas MD Attending Provider Active Start: November 02, 2024 Hugo WORKMAN PA Referring Provider Active St art: November 02, 2024 Team Status: Inactive Member Role/Relationship Status Dates Dr. Callie Nichols MD Primary Care Provider Active Start: November 24, 2024 End: November 24, 2024 Dr. Lorne Henderson MD Attending Provider Active Start: November 24, 2024 End: November 24, 2024 Dr. Lorne Henderson MD Referring Provider Active Start: November 24, 2024 End: November 24, 2024 Team Status: Active Member Role/Relationship Status Dates Dr. Callie Nichols MD Primary Care Provider Active Start: November 24, 2024 Dr. Obey Dyson MD Attending Provider Active S tart: November 24, 2024 Team Status: Inactive Member Role/Relationship Status Dates Dr. Callie Nichols MD Primary Care Provider Active Start: December 07, 2024 End: December 07, 2024 Dr. Callie Nichols MD Referring Provider Active Start: December 07, 2024 End: December 07, 2024 Dr. Lorne Henderson MD Attending Provider Active Start: December 07, 2024 End: December 07, 2024 Team Status: Inactive Member Role/Relationship Status Dates Dr. Callie Nichols MD Primary Care Provider Active Start: December 07, 2024 End: December 07, 2024 Dr. Lorne Henderson MD Attending Provider Active Start: December 07, 2024 End: December 07, 2024 Dr. Lorne Henderson MD Referring Provider Active Start: December 07, 2024 End: December 07, 2024 Team Status: Inactive Member Role/Relationship Status Dates Dr. Callie Nichols MD Primary Care Provider Active Start: December 29, 2024 End: December 29, 2024 Dr. Lorne Henderson MD Attending Provider Active Start: December 29, 2024 End: December 29, 2024 Dr. Lorne Henderson MD Referring Provider Active Start: December 29, 2024 End: December 29, 2024 Team Status: Inactive Member Role/Relationship Status Dates Dr. Callie Nichols MD Primary Care Provider Active Start: January 03, 2025 End: January 03, 2025 Dr. Callie Nichols MD Attending Provider Active Start: January 03, 2025 End: January 03, 2025 Dr. Callie Nichols MD Referring Provider Active Start: January 03, 2025 End: January 03, 2025 Team Status: Inactive Member Role/Relationship Status Dates Dr. Callie Nichols MD Primary Care Provider Active Start: January 03, 2025 End: January 03, 2025 Dr. Lorne Henderson MD Attending Provider Active Start: January 03, 2025 End: January 03, 2025 Dr. Lorne Henderson MD Referring Provider Active Start: January 03, 2025 End: January 03, 2025 Last Inserter Relationship Specialty Start Date End Date Callie Nichols MD [address] [facility] [place] [address] PCP - General 02/16/20 Reason for Visit (unrecogniz ed section and [...] Reason Onset Date Comments Med Refill 03/02/2024 Reason Onset Date Comments Orders 03/29/2024 CT-Lung Screen Reason Comments Alcohol Problem Specialty Diagnoses / Procedures Referred By Contac t Referred To Contact Diagnoses Dehydration Hypokalemia Nausea Alcohol withdrawal syndrome without complication (HCC) Procedures . Gary Quarles MD [address] [facility] [address] [place] [address] Phone: tel: fax: [facility] [address] [place] [address] Phone: tel: Referral ID Status Reason Start Date Expiration Date Visits Re quested Visits Authorized [id number] 1 1 Reason Comments Abdominal Pain Patient complains of abdominal cramping, vomiting, diarrhea, and chills since Friday Reason Comments Abdominal Pain C/o abd pain today. C/o n/v/d. Pt has known gallstones and kidney stones. Scheduled Active and Recently Administ ered Medications (unrecognized section and content) Medication Order 08/15/2024 08/16/2024 08/17/2024 escitalopram (Lexapro) tablet 20 mg 20 mg, Oral, Daily, First dose on Fri08/12/24 at 0900 0804 (Given - Provider: Gertrude Silva RN) 0845 (Given - Provider: Jing Womack, SORIN) 0922 (Given - Provider: Alejandra Escalona, SORIN) folic acid (Folvite) tablet 1 mg 1 mg, Oral, Daily, First dose on Bambi 08/12/24 at 0900 0805 (Given - Provider: Gertrude Silva RN) 0845 (Given - Provider: Jing Womack RN) 0922 (Given - Provider: Alejandra Escalona, SORIN) gabapentin (Neurontin) capsule 300 mg 300 mg, Oral, Every 8 hours, First dose on Fri08/11/24 at 2200, Hold for excessive sedation 0605 (Given - Provider: Mayte Vazquez RN)1412 (Given - Provider: Chelsi Clancy, SORIN)2153 (Given - Provider: Nicolasa Loaiza) 0536 (Given - Provider: Lauren Mercado RN)1407 (Given - Provider: Jing Womack RN)2147 (Given - Provider: Sury Bustillo, SORIN) 0601 (Given - Provider: Sury Bustillo, SORIN) lisinopril tablet 5 mg 5 mg, Oral, Daily, First dose on Bambi 08/12/24 at 0900 0804 (Given - Provider: Gertrude Silva RN) 0845 (Given - Provider: Jing Womack RN) 0921 (Given - Provider: Alejandra Escalona, SORIN) naltrexone (Depade) tablet 50 mg (COMPLETED)(Linked Group 1) 50 mg, Oral, Once, On Fri08/15/24 at 0800, For 1 dose 0804 (Given - Provider: Gertrude Silva, SORIN) naltrexone ER (Vivitrol) injection 380 mg 380 mg, IntraMUSCular, Once, On Fri08/16/24 at 0800, For 1 dose, Follow Package Insert. Bring vial to room temperature over 1 hour. Reconstitute with 3.4ml of provided diluent. Shake well. Draw up and administer 4mL dose deep IM into gluteal muscle IMMEDIATELY. Do not give IV or subcutaneously. Provide patient with wallet card and medical ID bracelet kit sent up by [id number] (Not Given - Provider: Jing Womack RN - Reason: Other - Comment: Given at 1107) PHENobarbital tablet 16.2 mg ()(Linked Group 2) 16.2 mg, Oral, Every 4 hours, First dose on 08/14/24 at 2200, For 6 doses, Hold for excessive sedation 0300 (Not Given - Provider: Mayte Vazquez RN - Reason: Order parameters not met)0605 (Given - Provider: Mayte Vazquez RN)1032 (Given - Provider: Gertrude Silva RN)1412 (Given - Provider: Chelsi Clancy, SORIN)1806 (Given - Provider: Gertrude Silva, SORIN) spironolactone (Aldactone) tablet 75 mg 75 mg, Oral, Daily, First dose on Bambi 08/12/24 at 0900 0804 (Given - Provider: Gertrude Silva RN) 0845 (Given - Provider: Jing Womack RN) 0922 (Given - Provider: Alejandra Escalona, SORIN) thiamine (Vitamin B1) tablet 100 mg 100 mg, Oral, 3 times daily, First dose on Fri08/11/24 at 2200 0805 (Given - Provider: Gertrude Silva RN)1412 (Given - Provider: Chelsi Clancy, SORIN)2015 (Given - Provider: Nicolasa Loaiza) 0845 (Given - Provider: Jing Womack RN)1407 (Given - Provider: Jing Womack RN)214 (Given - Provider: Sury Bustillo RN) 0921 (Given - Provider: Alejandra Escalona, SORIN) zonisamide (Zonegran) capsule 100 mg(Linked Group 3) 100 mg, Oral, Daily, First dose on Bambi 08/12/24 at 0900 0805 (Given - Provider: Gertrude Silva RN) 0845 (Given - Provider: Jing Womack RN) 0921 (Given - Provider: Alejandra Escalona RN) zonisamide (Zonegran) capsule 200 mg(Linked Group 3) 200 mg, Oral, Nightly, First dose on 08/11/24 at 2200 2015 (Given - Provider: Nicolasa Loaiza) 214 (Given - Provider: Sury Bustillo, RN) PRN Medication Order 08/15/2024 08/16/2024 08/17/2024 acetaminophen (Tylenol) tablet 650 mg 650 mg, Oral, Every 6 hours PRN, mild pain (1-3), moderate pain (4-6), headaches, severe pain (7-10), Starting on Bambi 08/12/24 at 1001, Maximum dose of acetaminophen is 4000 mg from all sources in 24 hours. 1414 (Given - Provider: Chelsi Clancy, SORIN - Comment: requested for headache) 1113 (Given - Provider: Jing Womack, SORIN) aluminum & magnesium hydroxide-simethicone (Mylanta) 200-200-20 MG/5ML oral suspension 10 mL 10 mL, Oral, 3 times daily PRN, indigestion, Starting on Bambi 08/12/24 at 1002 1703 (Given - Provider: Gertrude Silva RN) 215 (Given - Provider: Sury Bustillo, SORIN) dicyclomine (Bentyl) tablet 10 mg 10 mg, Oral, 3 times daily PRN, colic, Starting on Fri08/11/24 at 2144 hydrOXYzine pamoate (Vistaril) capsule 50 mg 50 mg, Oral, Every 6 hours PRN, anxiety, Starting on Fri08/11/24 at 214 loperamide (Imodium) capsule 2 mg 2 mg, Oral, 4 times daily PRN, diarrhea, Starting on Fri08/11/24 at 214, After each loose stool LORazepam (Ativan) injection 2 mg 2 mg, IntraMUSCular, Once PRN, seizures, Starting on Fri08/12/24 at 1002, For 1 dose, Please notify fire operations forester attending if this has to be utilized for a seizure. For IV doses dilute dose with 1ml NS. ondansetron (Zofran) tablet 4 mg 4 mg, Oral, Every 6 hours PRN, nausea, vomiting, Starting on Fri08/11/24 at 2145 senna-docusate sodium (Senokot-S) 8.6-50 MG tablet 2 tablet 2 tablet, Oral, Daily PRN, constipation, Starting on Fri08/11/24 at 2144 2014 (Given - Provider: Nicolasa Loaiza) traZODone (Desyrel) tablet 100 mg 100 mg, Oral, Nightly PRN, sleep, Starting on 08/15/24 at 2217 2302 (Given - Provider: Nicolasa Loaiza) 2146 (Given - Provider: Sury Bustillo RN) Linked Groups Order Group 1: naltrexone (Depade) tablet 25 mg (COMPLETED) 25 mg, Oral, Once, On 08/14/24 at 1000, For 1 dose Followed by naltrexone (Depade) tablet 50 mg (COMPLETED)Jump to med 50 mg, Oral, Once, On 08/15/24 at 0800, For 1 dose Group 2: PHENobarbital tablet 97.2 mg () 97.2 mg, Oral, Every 4 hours, First dose on Fri08/11/24 at 2200, For 6 doses, Hold for excessive sedation Followed by PHENobarbital tablet 64.8 mg (COMPLETED) 64.8 mg, Oral, Every 4 hours, First dose on Bambi 08/12/24 at 2200, For 6 doses, Hold for excessive sedation Followed by PHENobarbital tablet 32.4 mg (COMPLETED) 32.4 mg, Oral, Every 4 hours, First dose on Fri08/13/24 at 2200, For 6 doses, Hold for excessive sedation Followed by PHENobarbital tablet 16.2 mg ()Jump to med 16.2 mg, Oral, Every 4 hours, First dose on 08/14/24 at 2200, For 6 doses, Hold for excessive sedation Group 3: zonisamide (Zonegran) capsule 100 mgJump to med 100 mg, Oral, Daily, First dose on Bambi 08/12/24 at 0900 And zonisamide (Zonegran) capsule 200 mgJump to med 200 mg, Oral, Nightly, First dose on Fri08/11/24 at 2200 Scheduled Medication Order 09/18/2024 09/19/2024 09/20/2024 aspirin chewable tablet 324 mg (COMPLETED) 324 mg, Oral, Once, On 09/20/24 at 1130, For 1 dose 1134 (Given - Provid er: Marcie Montiel RN) Scheduled Medication Order 12/19/2024 12/20/2024 12/21/2024 aluminum & magnesium hydroxide-simethicone (Mylanta) 200-200-20 MG/5ML oral suspension 20 mL (COMPLETED)(Linked Group 1) 20 mL, Oral, Once, On Fri12/21/24 at 1350, For 1 dose, Mix with 5 mL viscous lidocaine oral solution and give together (25 mL total). 1352 (Given - Provid er: Concha Blandon RN) cefdinir (Omnicef) capsule 300 mg (COMPLETED) 300 mg, Oral, Once, On Fri12/21/24 at 1435, For 1 dose, Suspected Indication (Select all that apply): Urinary Tract Infection 1449 (Given - Provid er: Concha Blandon RN) dicyclomine (Bentyl) injection 20 mg (COMPLETED) 20 mg, IntraMUSCular, Once, On Fri12/21/24 at 1350, For 1 dose 135 (Given - Provid er: Concha Blandon RN) ketorolac (Toradol) injection 15 mg (COMPLETED) 15 mg, IntraVENous, Once, On Fri12/21/24 at 1240, For 1 dose 1241 (Given - Provid er: Concha Blandon RN) lidocaine (Xylocaine) 2 % mouth solution 5 mL (COMPLETED)(Linked Group 1) 5 mL, Mouth/Throat, Once, On Fri12/21/24 at 1350, For 1 dose, Mix with 20 mL aluminum & magnesium hydroxide-simethicone oral solution and give together (25 mL total) 1352 (Given - Provid er: Concha Blandon RN) potassium chloride CR (Klor-Con M10) ER tablet 40 mEq (COMPLETED) 40 mEq, Oral, Once, On Fri12/21/24 at 1345, For 1 dose, Best given with food and plenty of water to minimize gastric irritation. Do not crush or chew. 1352 (Given - Provid er: Concha Blandon RN) prochlorperazine (Compazine) injection 5 mg (COMPLETED) 5 mg, IntraVENous, Once, On Fri12/21/24 at 1350, For 1 dose 1352 (Given - Provid er: Concha Blandno RN) sodium chloride 0.9 % bolus 1,000 mL (COMPLETED) 1,000 mL, IntraVENous, at 1,000 mL/hr, Administer over 1 Hours, Once, On Fri12/21/24 at 1240, For 1 dose 1242 (New Bag - Prov ider: Concha Blandon RN)1426 (Stopped - Provider: Concha Blandon RN) PRN Medication Order 12/19/2024 12/20/2024 12/21/2024 iopamidol (Isovue-370) 76 % injection 75 mL (COMPLETED) 75 mL, IntraVENous, IMG once PRN, contrast, Starting on Fri12/21/24 at 1253, For 1 dose 1318 (Given - Provid er: Concha Angel, RT (R)(CT)) Linked Groups Order Group 1: lidocaine (Xylocaine) 2 % mouth solution 5 mL (COMPLETED)Jump to med 5 mL, Mouth/Throat, Once, On Fri12/21/24 at 1350, For 1 dose, Mix with 20 mL aluminum & magnesium hydroxide-simethicone oral solution and give together (25 mL total) And aluminum & magnesium hydroxide-simethicone (Mylanta) 200-200-20 MG/5ML oral suspension 20 mL (COMPLETED)Jump to med 20 mL, Oral, Once, On Fri12/21/24 at 1350, For 1 dose, Mix with 5 mL viscous lidocaine oral solution and give together (25 mL total). Scheduled Medication Order 01/18/2025 01/19/2025 01/20/2025 dicyclomine (Bentyl) injection 20 mg (COMPLETED) 20 mg, intramuscular, Once, On Fri01/19/25 at 2055, For 1 dose 2108 (Given - Provider: Caitlin Brizuela RN) iohexol (OMNIPaque) 350 mg iodine/mL solution 72 mL (COMPLETED) 72 mL, intravenous, Once in imaging, Starting on Fri01/19/25 at 2147, For 1 dose 2140 (Given - Provider: Murphy Stokes) magnesium oxide (Mag-Ox) 400 mg (241.3 mg elemental) tablet 1 tablet 1 tablet (400 mg of magnesium oxide), oral, Daily, First dose (after last modification) on Bambi 01/20/25 at 0215 0238 (Given - Provid er: Ciara Barker RN) morphine injection 4 mg (COMPLETED) 4 mg, intravenous, Once, On Fri01/19/25 at 2054, For 1 dose 2104 (Given - Provider: Caitlin Brizuela, SORIN) ondansetron (Zofran) injection 4 mg (COMPLETED) 4 mg, intravenous, Once, On Fri01/19/25 at 2054, For 1 dose, When administering via IV Push, administer over 3-5 minutes. 2102 (Given - Provider: Caitlin Brizuela, SORIN) potassium chloride 20 mEq in sterile water for injection 100 mL (COMPLETED) 20 mEq, intravenous, at 50 mL/hr, Administer over 2 Hours, Every 2 hours, First dose on Fri01/19/25 at 0, For 2 doses, Total dose is 40 mEq via peripheral line. 2226 (New Bag - Provider: Caitlin Brizuela RN) 31 (Stopped - Provider: Caitlin Brizuela RN)32 (New Bag - Provider: Caitlin Brizuela RN)238 (Stopped - Provider: Ciara Barker, RN) sodium chloride 0.9 % bolus 1,000 mL (COMPLETED) 1,000 mL, intravenous, at 999 mL/hr, Administer over 1 Hours, Once, On Fri01/19/25 at 2054, For 1 dose 2100 (New Bag - Provider: Caitlin Brizuela, SORIN)2225 (Stopped - Provider: Caitlin Brizuela RN) Continuous Medication Order 01/18/2025 01/19/2025 01/20/2025 sodium chloride 0.9% infusion 150 mL/hr, intravenous, Continuous, Starting on Fri01/19/25 at 2054, For 1 day 2225 (New Bag - Provider: Caitlin Brizuela RN) 024 (Stopped - Provider: Ciara Barker, RN) FOR RECORDS PERTAINING TO PATIENTS WHO ARE [...] BE BASED ON THE PRIMARY CLINICAL RECORDS. [employer] [facility]. provides no warranty or guarantee of the accuracy or completeness of information in this document.
== END | disposition home or self-care (01) ==
LOC: OPBI 07:34
PROVIDERS: PCP Internal Medicine; Referring Provider Internal Medicine; Visit Provider Internal Medicine
DX: Z12.31 Encounter for screening mammogram for malignant neoplasm of breast (principal)
CPT/HCPCS: 77063; 77067

== ENCOUNTER → 2025-05-17 | Outpatient (CLI) | payer MEDICARE, SELFPAY ==
--- NOTE | 2025-05-17 10:07 | US_ITS ---
PROCEDURE: ABD LIMITED W/ ELASTOGRAPHY REASON FOR EXAM: SUSPECTED CIRRHOSIS, LLQ PAIN COMPARISON: March 11, 2024. TECHNIQUE: Procedure Code: [id number] Modality: US Procedure: ABD LIMITED W/ ELASTOGRAPHY Right upper quadrant abdominal ultrasound. [facility] Elast[facility] shear wave elastography for non-invasive assessment of liver tissue stiffness. [facility] EPIQ Elite. FINDINGS: LIVER: Size: Enlarged (hepatomegaly) Length: 18.8 cm Echotexture: Coarsened Contour: Nodular Lesions: None identified Elastography: EQI Med: 10.6 kPa EQI Med Jono: 1.87 m/s IQR/Med: 23.7 %* GALLBLADDER: Solitary gallstone measuring 9 mm x 8 mm x 4 mm. COMMON BILE DUCT: Normal measuring 6.7 mm . PANCREAS: Normal Visualized portions of the right kidney are unremarkable. 5 mm x 4 mm x 2 mm nonobstructive right intrarenal calculus. No right upper quadrant ascites. Spleen: The spleen measures 11.8 cm 4.7 cm 5.1 cm. US/ABD Limited w/ Elastography IMPRESSION: MODERATE TO SEVERE HEPATIC FIBROSIS Hepatomegaly. Nodular contour of the liver. Solitary gallstone measuring 9 mm x 8 mm x 4 mm. Reference Values: SRU <1.37 m/s (5.7kPa): No to mild fibrosis 1.37 m/s - 2.2 m/s: Moderate to severe fibrosis >2.2 m/s (15kPa): Significant fibrosis / cirrhosis METAVIR Score F2 or higher: 1.34 m/s (5.7kPa) F3 or higher: 1.55 m/s (7.3kPa) F4: 1.80 m/s (10kPa) * If the IQR/Med is >30%, the variance in the measurements is a large and the a ccuracy of the measurement may be in question. Reading Location: [place] [id number]
== END | disposition home or self-care (01) ==
PROVIDERS: PCP Internal Medicine; Referring Provider Internal Medicine; Visit Provider Internal Medicine
DX: K80.20 Calculus of gallbladder without cholecystitis without obstruction (principal); R56.9 Unspecified convulsions; F10.239 Alcohol dependence with withdrawal, unspecified; D69.6 Thrombocytopenia, unspecified; E80.6 Other disorders of bilirubin metabolism; K70.9 Alcoholic liver disease, unspecified
CPT/HCPCS: 76705; 76981